=== PATIENT | female | born 1940 | race Caucasian/White ===

== ENCOUNTER → 2020-04-20 13:28 | Outpatient (BNVA) | payer MEDICARE, SELFPAY | PROVIDERS: PCP Internal Medicine; Referring Provider Internal Medicine; Visit Provider Internal Medicine Medical Oncology | DX: I26.99 Other pulmonary embolism without acute cor pulmonale (principal); Z51.81 Encounter for therapeutic drug level monitoring; Z79.01 Long term (current) use of anticoagulants | CPT/HCPCS: 85610; 99211 ==

== ENCOUNTER → 2020-05-12 08:59 | Outpatient (BNVA) | payer MEDICARE, SELFPAY | PROVIDERS: PCP Internal Medicine; Visit Provider Internal Medicine | DX: I26.99 Other pulmonary embolism without acute cor pulmonale (principal); Z51.81 Encounter for therapeutic drug level monitoring; Z79.01 Long term (current) use of anticoagulants | CPT/HCPCS: 85610; 99211 ==

== ENCOUNTER → 2020-05-18 09:26 | Outpatient (BNVA) | payer MEDICARE, SELFPAY | PROVIDERS: PCP Internal Medicine; Visit Provider Internal Medicine | DX: I26.99 Other pulmonary embolism without acute cor pulmonale (principal); Z51.81 Encounter for therapeutic drug level monitoring; Z79.01 Long term (current) use of anticoagulants | CPT/HCPCS: 85610; 99211 ==

== ENCOUNTER → 2020-05-25 09:32 | Outpatient (BNVA) | payer MEDICARE, SELFPAY | PROVIDERS: PCP Internal Medicine; Visit Provider Internal Medicine | DX: I26.99 Other pulmonary embolism without acute cor pulmonale (principal); Z51.81 Encounter for therapeutic drug level monitoring; Z79.01 Long term (current) use of anticoagulants | CPT/HCPCS: 85610; 99211 ==

== ENCOUNTER → 2020-06-04 10:45 | Outpatient (BNVA) | payer MEDICARE, SELFPAY | PROVIDERS: PCP Internal Medicine; Referring Provider Internal Medicine; Visit Provider Internal Medicine | DX: I26.99 Other pulmonary embolism without acute cor pulmonale (principal); Z51.81 Encounter for therapeutic drug level monitoring; Z79.01 Long term (current) use of anticoagulants | CPT/HCPCS: 85610; 99211 ==

== ENCOUNTER → 2020-06-17 09:15 | Outpatient (BNVA) | payer MEDICARE, SELFPAY | PROVIDERS: PCP Internal Medicine; Visit Provider Internal Medicine | DX: I26.99 Other pulmonary embolism without acute cor pulmonale (principal); Z51.81 Encounter for therapeutic drug level monitoring; Z79.01 Long term (current) use of anticoagulants | CPT/HCPCS: 85610; 99211 ==

== ENCOUNTER 2020-06-19 10:03 | Outpatient (REF) | payer MEDICARE, SELFPAY ==
[2020-06-19 12:13] LABS: Glucose Urine UA NEG (NEG); Leukocyte Esterase Urine 1+ (NEG); Nitrite Urine NEG (NEG); Specific Gravity - Urine 1.015 (1.005-1.025); Urine Blood TRACE (NEG); Urine Ketones NEG (NEG); Urine Protein NEG (NEG-TRACE)
[2020-06-19 12:15] LABS: Appearance Urine HAZY; Color Urine YELLOW
[2020-06-19 13:14] LABS: Bacteria Urine 3+ /LPF; RBC Urine 0-2 /HPF (0)
== END 2020-06-19 10:04 | disposition home or self-care (01) ==
LOC: HO.LNP 10:03
PROVIDERS: Absent Provider Internal Medicine; PCP Internal Medicine; Visit Provider Internal Medicine
DX: R35.0 Frequency of micturition (principal)
CPT/HCPCS: 81001; 81003; 85610; 87086; 87088; 87186; 99211

== ENCOUNTER → 2020-06-26 09:13 | Outpatient (BNVA) | payer MEDICARE, SELFPAY | PROVIDERS: PCP Internal Medicine; Visit Provider Internal Medicine | DX: I26.99 Other pulmonary embolism without acute cor pulmonale (principal); Z51.81 Encounter for therapeutic drug level monitoring; Z79.01 Long term (current) use of anticoagulants | CPT/HCPCS: 85610; 99211 ==

== ENCOUNTER → 2020-07-06 13:53 | Outpatient (BNVA) | payer MEDICARE, SELFPAY | PROVIDERS: PCP Internal Medicine; Visit Provider Internal Medicine | DX: I26.99 Other pulmonary embolism without acute cor pulmonale (principal); Z51.81 Encounter for therapeutic drug level monitoring; Z79.01 Long term (current) use of anticoagulants | CPT/HCPCS: 85610; 99211 ==

== ENCOUNTER → 2020-07-13 10:14 | Outpatient (BNVA) | payer MEDICARE, SELFPAY | PROVIDERS: PCP Internal Medicine; Visit Provider Internal Medicine | DX: I26.99 Other pulmonary embolism without acute cor pulmonale (principal); Z51.81 Encounter for therapeutic drug level monitoring; Z79.01 Long term (current) use of anticoagulants | CPT/HCPCS: 85610; 99211 ==

== ENCOUNTER → 2020-07-16 09:35 | Outpatient (BNVA) | payer MEDICARE, SELFPAY | PROVIDERS: PCP Internal Medicine; Referring Provider Internal Medicine; Visit Provider Surgery | DX: C50.912 Malignant neoplasm of unspecified site of left female breast (principal); Z79.811 Long term (current) use of aromatase inhibitors; R07.89 Other chest pain; Z92.21 Personal history of antineoplastic chemotherapy; Z92.3 Personal history of irradiation; Z90.12 Acquired absence of left breast and nipple | CPT/HCPCS: 99212 ==

== ENCOUNTER 2020-07-20 06:00 | Emergency (ER) | payer MEDICARE, SELFPAY ==
[2020-07-20 06:14] VITALS: BP 140/83; BP 160/100; PULSE 86; PULSE 90; RESP 18; TEMP 36.9; O2SAT 96; O2SAT 98; BMI 27.9
--- NOTE | 2020-07-20 06:31 | PC.NURSE ---
THIS RN SPOKE WITH PATIENT'S NEPHEW/HEALTHCARE PROXY (SHAYAN JOSE). REPORTS THAT HE LIVES WITH THE PATIENT, AND DID NOT WITNESS FALL. SHAYAN STATES THAT THE PATIENT IS STUBBORN WHEN IT COMES TO USING A WHEELCHAIR, AND STATES THAT THEY ARE IN THE PROCESS OF TRANSITIONING HER TO WHEELCHAIR USE. SHAYAN STATES THAT IF SHE NEEDS TO BE ADMITTED/TRANSFERRED TO A [facility]AC[facility], THAT SHE DID WELL AT [facility] IN THE PAST. SHAYAN ALSO STATES THAT THE PATIENT BECOMES ANXIOUS IF YOU TELL HER THAT SHE IS BEING PUT INTO A RESIDENTIAL HOME VS. USING THE PHRASING GOING TO REHAB . PATIENT IS SCHEDULED FOR AN ANTICOAGULANT CHECK AT 8:45AM TODAY PRIOR TO TOOTH EXTRACTION (x3) AT 10:45AM SCHEDULED LATER TODAY. SHAYAN UNSURE IF HE SHOULD CANCEL DENTAL APPOINTMENT, AND WONDERING IF ANTICOAGULANT LABS CAN BE DONE WHILE HERE IN THE ED. THIS RN STATED THAT SHE WOULD NOTIFY THE MD REGARDING QUESTIONS. SHAYAN LIVES 10-15 MINUTES AWAY FROM [facility] AND LEFT HIS CONTACT INFORMATION (MATCHES INFORMATION ON FILE), REQUESTING UPDATES WHEN POSSIBLE. AWAITING ED MD EVALUATION.
--- NOTE | 2020-07-20 06:57 | ECG_ITS ---
Test Reason : WEAKNESS,FALL Blood Pressure : / mmHG Vent. Rate : 093 BPM Atrial Rate : 093 BPM P-R Int : 162 ms QRS Dur : 074 ms QT Int : 390 ms P-R-T Axes : 043 039 051 degrees QTc Int : 484 ms Sinus rhythm with Premature supraventricular complexes Otherwise normal ECG When compared with ECG of 16-DEC-2019 17:53, Premature supraventricular complexes are now Present Referred By: Del Knutson Electronically Signed By:Taras Oden
--- NOTE | 2020-07-20 06:58 | CT_ITS ---
EXAMINATION: CT BRAIN, CT CERVICAL SPINE AND CT LUMBAR SPINE WITHOUT CONTRAST. CLINICAL INFORMATION: Trauma. COMPARISON: CT brain and CT cervical spine 12/16/2019 TECHNIQUE: 5 mm thin axial and reformatted 2 mm thin sagittal and coronal images of brain were obtained. Subsequently 3 mm thin axial and reformatted 2 mm thin sagittal and coronal images of cervical spine were obtained. Lastly axial 2 mm thin and reformatted 2 minutes in sagittal coronal images of lumbar spine were obtained without contrast. DLP [id number] FINDINGS: Brain: There is no acute intra-axial, extra-axial bleed, masses, collection or midline shift. There is no acute infarction in evolution. There is punctate bibasilar calcification seen. The lateral ventricles are symmetrical but enlarged with mild prominence of cortical sulci. There is mild periventricular hypodensity in both cerebral hemispheres without mass effect. Bone windows reveal no calvarial abnormality. There is no scalp soft tissue abnormality. Bilateral paranasal sinuses and mastoid air cells are well-aerated. There is normal symmetry of optic globes and bilateral bony orbits. Cervical spine: Is mild straightening of cervical lordosis. The vertebral heights, alignment are normal. There is loss of C3-C4, C4-C5, C5-C6 and C6-C7 disc heights with mild ventral and posterior spondylosis. No lytic or sclerotic process seen. No visible acute fracture, dislocation or subluxation seen. Craniovertebral junction is normal. There is mild rotatory subluxation to left at C1-C2 disc level.. The prevertebral and paravertebral. The airway is widely patent there is bilateral bilateral apical parenchymal scarring and apical pleural thickening. The thyroid, submandibular and parotid lobes are symmetrical and normal. Lumbar spine: There is normal lumbar lordosis with mild levoscoliosis. There is loss of L3-L4, L4-L5 disc heights with vacuum disc phenomena and spondylosis. Rest the disc levels are unremarkable. Mild spur endplate deformity with Schmorl's nodes seen at T12 vertebra. There is bilateral L5-S1 and L4-L5 facet joint arthropathy. The prevertebral, paravertebral and presacral soft tissues are normal. CT/CT cervical spine wo con IMPRESSION: No acute intracranial process seen. Age-related cerebral atrophy with chronic small vessel ischemic changes. Rotatory subluxation C1-C2 disc level. No visible acute fracture or dislocation seen. Degenerative disc changes as described above. Mild levoscoliosis with degenerative L4-L5 and L5-S1 facet joint arthropathy lumbar spine. No visible acute fracture, dislocation or lytic process seen. There is spondylosis throughout lumbar spine.
--- NOTE | 2020-07-20 07:04 | ED.FALL ---
HPI - Fall General Chief Complaint: Fall Stated Complaint: FALL, LEFT SIDE PAIN Time Seen by Provider: 07/20/20 06:56 Source: patient History of Present Illness HPI Narrative: Disease 79 years old female who states that he was getting ready to go to [facility] she turned around and fell. He there is no LOC, she is complaining of lower back pain. complaint: fall Onset (ago): hour(s) (2) Fall from: standing Fall witnessed: no Place fall occurred: home Loss of consciousness: none Prolonged down time: no Symptoms prior to fall: none Context: other (Loss of balance) Location of injury: back (Lower back) Severity: moderate Quality: burning and sharp Related Data Home Medications Medication Instructions Recorded Confirmed atorvastatin 20 mg tablet 20 mg PO DAILY 07/16/20 07/16/20 ferrous sulfate 325 mg (65 mg 325 mg PO DAILY 07/16/20 07/16/20 iron) tablet letrozole 2.5 mg tablet 2.5 mg PO DAILY 07/16/20 07/16/20 Previous Rx's Medication Instructions Recorded warfarin 5 mg tablet 5 mg PO DAILY #90 tab 04/20/20 Allergies Allergy/AdvReac Type Severity Reaction Status Date / Time N.K.D.A. Allergy Unknown N/A Uncoded 05/12/20 09:07 Review of Systems Review of Systems: Yes all other systems are reviewed and are negative Cardiovascular: Cardiovascular: Reports no additional cardiovascular complaints Respiratory: Respiratory: Reports no additional respiratory complaints Gastrointestinal: Gastrointestinal: Denies abdominal pain, Denies melena and Denies hematochezia Genitourinary: Genitourinary: Denies difficulty voiding and Denies nocturia [facility] Past Medical History 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 Surgical History History of left total mastectomy Family History Family History Brother History of stomach cancer History of liver cancer Social History Social History Smoked in Last 30 Days: No Use of substances other than those prescribed or required for medical reasons: No Advance Directives: No Advance Directives Information Provided: No Physical Exam Vital Signs: Vital Signs: Last Vital Signs Temp 98.5 F 07/20/20 06:14 Pulse 92 07/20/20 09:15 Resp 16 07/20/20 09:15 BP 149/90 H 07/20/20 09:15 Pulse Ox 98 07/20/20 09:15 Body Mass Index 27.9 Const: Other: She appear well in not acute distress Orientation/consciousness: oriented to person and oriented to place HENMT: Head: Yes normal to inspection Eyes: General: appearance normal, both eyes and all related structures Neck: Neck: Yes normal visual inspection and Yes no lymphadenopathy Chest: Chest palpation & inspection: normal inspection of the chest Resp: Effort & Inspection: normal respiratory effort Cardio: Jugular venous distension: no JVD Rate: regular rate GI: Inspection: Yes normal to inspection Palpation (GI): Soft to palpation, nontender and no guarding Back/Spine/Pelvis: Other: She has a lower back tenderness Skin: General skin exam: no rashes or lesions noted Neuro: General: oriented to person and oriented to place Extrem: General: Yes normal to inspection and Yes full ROM Course Reevaluation(s) Reevaluation #1: Patient was re-examined she is feeling better, she was able to ambulate with a walker well without assistance. I spoke with the nephew week, to pickle processor the patient we will discharge her home a realizing and that she is fall risk. Time: 09:52 MDM - Fall Lab Data Result diagrams: 07/20/20 09:02 07/20/20 09:02 Labs: Lab Results 07/20/20 07/20/20 07/20/20 Range/Units 09:02 09:02 09:02 WBC 9.9 (4.8-10.8) X10*3/uL RBC 4.55 (4.20-5.50) X10*6/uL Hgb 14.6 (12.0-16.0) g/dl Hct 45.7 (37-47) % MCV 100.4 H (80-98) fL MCH 32.1 (27.0-33.0) pg MCHC 31.9 (31.0-35.0) g/dl RDW 12.7 (11.0-16.0) % Plt Count TNP MPV TNP Immature Gran % (Auto) 0.4 (0.0-0.4) % Neut % (Auto) 70.8 (45-73) % Lymph % (Auto) 21.4 (20-40) % [place] % (Auto) 6.5 (2-11) % Eos % (Auto) 0.6 (0-4) % Baso % (Auto) 0.3 (0-2) % Lymph # (Auto) 2.1 (1.2-4.9) X10*3/uL [place] # (Auto) 0.6 (0.1-1.2) X10*3/uL Eos # (Auto) 0.1 (0.0-0.4) X10*3/uL Baso # (Auto) 0.0 (0.0-0.2) X10*3/uL Abs Immat Gran (auto) 0.04 H (0.00-0.03) X10*3/uL Absolute Neuts (auto) 7.0 (2.0-8.3) X10*3/uL Absolute Nucleated RBC 0.000 (0.0-0.012) X10*3/uL Nucleated RBC % (auto) 0.0 (0.0-0.2) /100WBC Smear Tech's Comments VERIFIED PT 20.2 H (10.8-13.0) SEC INR 1.7 H (0.9-1.1) Sodium 141 (135-145) mmol/L Potassium 4.2 (3.3-5.1) mmol/l Chloride 105 (96-108) mmol/L Carbon Dioxide 27 (22-29) mmol/L Anion Gap 13 (12-20) BUN 12 (9-16) mg/dL Creatinine 0.75 (0.5-1.4) mg/dL Estim Creat Clear Calc 75.8 Estimated GFR > 60 Random Glucose 89 (60-115) mg/dL Calcium 8.9 (8.4-10.2) mg/dL Total Bilirubin 0.7 (0.0-1.0) mg/dL AST 21 (5-31) U/L ALT 22 (0-31) U/L Alkaline Phosphatase 93 (39-117) U/L Total Protein 7.0 (6.5-8.0) g/dL Albumin 4.2 (3.5-5.0) g/dL Imaging Data CT scan - head: Radiologist's impression: Ct head and c spine negative ECG Data Attestation: I personally reviewed and interpreted this ECG as follows: ECG interpretation date: 07/20/20 ECG interpretation time: 08:14 Pacemaker model: NORMAL SINUS RHYTHM A RATE 93 ST-T SEGMENT ISOELECTRIC Discharge Plan Discharge Clinical Impression: Fall, Contusion, Back contusion Patient Disposition: Home, Self-Care Instructions: Fall Prevention for Older Adults (ED) Prescriptions: No Action atorvastatin 20 mg tablet 20 mg PO DAILY RF: 0 ferrous sulfate 325 mg (65 mg iron) tablet 325 mg PO DAILY RF: 0 letrozole 2.5 mg tablet 2.5 mg PO DAILY RF: 0 warfarin 5 mg tablet 5 mg PO DAILY Qty: 90 RF: 0 Referrals: Woody Joseph MD [Primary Care Provider] - 2 days (Please follow-up with primary care physician return if you worse) Interventions: ED Discharge Assessment Last Done: 07/20/20 10:20 Discharge Date/Time: 07/20/20 10:21
[2020-07-20 09:13] LABS: INTERNATIONAL NORM RATIO 1.7 (0.9-1.1); Prothrombin Time 20.2 SEC (10.8-13.0)
[2020-07-20 09:15] VITALS: BP 149/90; PULSE 92; RESP 16; O2SAT 98
[2020-07-20 09:17] LABS: Basophils Percent Auto 0.3 % (0-2); Eosinophils Absolute Auto 0.1 X10*3/uL (0.0-0.4); Eosinophils Percent Auto 0.6 % (0-4); Hematocrit 45.7 % (37-47); Hemoglobin 14.6 g/dl (12.0-16.0); Imm Gran Abs Auto 0.04 X10*3/uL (0.00-0.03); Imm Gran Pct Auto 0.4 % (0.0-0.4); Lymphocytes Absolute Auto 2.1 X10*3/uL (1.2-4.9); Lymphocytes Percent Auto 21.4 % (20-40); MANUAL DIFF FLAG SCAN; Mean Corpuscular HGB Conc 31.9 g/dl (31.0-35.0); Mean Corpuscular Hemoglobin 32.1 pg (27.0-33.0); Mean Corpuscular Volume 100.4 fL (80-98); Monocytes Absolute Auto 0.6 X10*3/uL (0.1-1.2); Monocytes Percent Auto 6.5 % (2-11); Neutrophils Percent Auto 70.8 % (45-73); PLT CLUMP 1; Red Blood Count 4.55 X10*6/uL (4.20-5.50); Red Cell Distribution Width 12.7 % (11.0-16.0); SCAN SMEAR FLAG 1
[2020-07-20 09:39] LABS: Alanine Aminotransferase 22 U/L (0-31); Albumin Level 4.2 g/dL (3.5-5.0); Alkaline Phosphatase 93 U/L (39-117); Anion Gap 13 (12-20); Aspartate Amino Transferase 21 U/L (5-31); Bilirubin Total 0.7 mg/dL (0.0-1.0); Blood Urea Nitrogen 12 mg/dL (9-16); Calcium 8.9 mg/dL (8.4-10.2); Carbon Dioxide 27 mmol/L (22-29); Chloride 105 mmol/L (96-108); Creatinine Clr Calc Pharmacy 75.8; Estimated Glomerular Filt Rate > 60; Glucose Random 89 mg/dL (60-115); Potassium 4.2 mmol/l (3.3-5.1); Sodium 141 mmol/L (135-145)
[2020-07-20 09:44] LABS: White Blood Count 9.9 X10*3/uL (4.8-10.8)
[2020-07-20 09:45] LABS: SLIDE REVIEW VERIFIED
[2020-07-20] MEDS: Acetaminophen 325 MG TABLET 650 MG PO (10:04)
--- NOTE | 2020-07-20 10:20 | PC.NURSE ---
Pt ambulated with walker. Plan is to dc home. Son will pick pt up.
== END 2020-07-20 10:21 | disposition home or self-care (01) ==
PROVIDERS: Emergency Provider Emergency Medicine; PCP Internal Medicine
DX: S30.0XXA Contusion of lower back and pelvis, initial encounter (principal); W01.0XXA Fall on same level from slipping, tripping and stumbling without subsequent striking against object, initial encounter; I10 Essential (primary) hypertension; Y93.89 Activity, other specified; Y92.019 Unspecified place in single-family (private) house as the place of occurrence of the external cause; Y99.9 Unspecified external cause status; Z86.711 Personal history of pulmonary embolism; Z79.01 Long term (current) use of anticoagulants
CPT/HCPCS: 36415; 70450; 72125; 72131; 80053; 85025; 85610; 93005; 99284; Q3014

== ENCOUNTER 2020-07-24 08:27 | Outpatient (REF) | payer MEDICARE, SELFPAY ==
--- NOTE | 2020-07-24 08:31 | MM_ITS ---
EXAMINATION: BONE DENSITOMETRY CLINICAL INDICATION: Age-related osteoporosis without current pathological fracture. COMPARISON: Previous BD dated 11/22/2018 and baseline BD dated 08/02/2016. TECHNIQUE: Using a [employer] DXA System (software version: 13.1) manufactured by [employer], dual-energy x-ray absorptiometry was performed of the lumbar spine and left hip. The images are of good technical quality. Summary results are attached. FINDINGS: AP SPINE L1-L2 (excluding L3 and L4): The data of L1-L4 has been changed to exclude the L3 and L4 vertebral bodies, because degenerative changes at these levels may cause overestimation of lumbar spine density. Current: BMD 0.927 g/cm2, Z-score -0.4, T-score -2.0, osteopenia, 3.5% decrease from previous, 0.9% increase from baseline (<5% change is not significant). Prior: BMD 0.961 g/cm2. Baseline: BMD 0.919 g/cm2. LEFT FEMUR, NECK: Current: BMD 0.822 g/cm2, Z-score 0.3, T-score -1.6, osteopenia. Prior: BMD 0.792 g/cm2. Baseline: BMD 0.842 g/cm2. LEFT FEMUR, TOTAL: Current: BMD 0.931 g/cm2, Z-score 1.1, T-score -0.6, normal, 3.8% increase from previous, 5.1% increase from baseline (<5% change is not significant). Prior: BMD 0.897 g/cm2. Baseline: BMD 0.886 g/cm2. IDENTIFIED RISK FACTORS: Recurrent falls, low calcium intake, history of fracture (adult), menopause. HISTORY OF FRACTURE: Wrist, humerus. Foot. MEDICATIONS: Calcium supplements or multivitamin, vitamin D, ERT/SERMS. MM/XR DEXA axial skeleton IMPRESSION: 1. DIAGNOSIS: Osteopenia based on the lowest T-score value of -2.0 in the lumbar spine applying World Health Organization criteria. 2. 10-YEAR FRACTURE RISK PREDICTION, FRAX: Major osteoporotic fracture (clinical spine, forearm, hip or shoulder) 19.0%. Hip fracture 4.1%. 3. Treatment Recommendations: NOF guidelines recommend consideration for treatment in postmenopausal women and men age 50 and older presenting with the following: -A hip or vertebral (clinical or morphometric) fracture. -T-score less than or equal to -2.5 at the femoral neck or spine after appropriate evaluation to exclude secondary causes. -Low bone mass at the hip or spine and a 10-year fracture probability by FRAX of greater than or equal to 3% for hip fracture or greater than or equal to 20% for major osteoporotic fracture based on the [place] adapted WHO algorithm. 4. Other Recommendations: All treatment decisions require clinical judgment and consideration of individual patient factors, including patient preferences, comorbidities, previous drug use, risk factors not captured in the FRAX model (e.g. frailty, falls, vitamin D deficiency, increased bone turnover, interval significant decline in bone density) and possible under or overestimation of fracture risk by FRAX. Additional medical evaluation for secondary cause of low bone mineral density may be appropriate. FUTURE SCAN RECOMMENDATION: People with diagnosed cases of osteoporosis or at high risk for fracture should have regular bone mineral density tests. For patients eligible for Medicare, routine testing is allowed once every 2 years. The testing frequency can be increased to one year for patients who have rapidly progressing disease, those who are receiving or discontinuing medical therapy to restore bone mass, or have additional risk factors.
--- NOTE | 2020-07-24 08:36 | MM_ITS ---
EXAMINATION: MM DIAGNOSTIC DIGITAL BREAST TOMOSYNTHESIS, RIGHT CLINICAL INFORMATION: Short interval follow-up probable benign right breast calcifications central breast. 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 COMPARISON: Mammography: 02/21/2020, 01/30/2020 (BI-RADS 0), 01/01/2019 TECHNIQUE: Digital breast tomosynthesis is performed in both the craniocaudal and mediolateral oblique views along with computer-aided detection (CAD). Synthesized 2D images are generated from the tomosynthesis. Technically challenging exam requiring 2 process safety engineering technologist to assist with patient positioning. Exam tailored to patient capabilities. Unable to perform magnification views. Difficulty holding breath and standing. FINDINGS: There are scattered areas of fibroglandular density (ACR BI-RADS breast composition Category b). Parenchymal pattern is similar to prior studies. There is no interval mass or architectural abnormality. Again there is a retroareolar biopsy clip marker. Some coarse calcifications again seen posterior upper right breast. The finding calcifications for follow-up appear similar to prior diagnostic exam on today's standard imaging without ability to obtain magnification views. There are no increasing calcifications seen on standard mammography. Right breast will be reassessed again at time of annual exam, due in 6 months. Results are provided to the patient at time of visit by the technologist. MM/MM tomosynthesis diagnostic RT IMPRESSION: 1. Patient study limitations. Unable to obtain magnification views. 2. Right breast calcifications for follow-up are stable on standard imaging. ASSESSMENT: BI-RADS 3: Probably Benign RECOMMENDATION: Diagnostic mammography at time of annual exam, due in 6 months. This patient's information was entered into a reminder system with a target due date for their next mammogram.
== END 2020-07-24 08:28 | disposition home or self-care (01) ==
LOC: HO.MAMMO 08:27
PROVIDERS: PCP Internal Medicine; Visit Provider Internal Medicine
DX: R92.1 Mammographic calcification found on diagnostic imaging of breast (principal); M81.0 Age-related osteoporosis without current pathological fracture; Z78.0 Asymptomatic menopausal state; R29.6 Repeated falls; Z79.899 Other long term (current) drug therapy; Z87.81 Personal history of (healed) traumatic fracture
CPT/HCPCS: 77061; 77065; 77080

== ENCOUNTER → 2020-07-27 07:40 | Outpatient (BNVA) | payer MEDICARE, SELFPAY | PROVIDERS: PCP Internal Medicine; Visit Provider Internal Medicine | DX: I26.99 Other pulmonary embolism without acute cor pulmonale (principal); Z79.01 Long term (current) use of anticoagulants; Z51.81 Encounter for therapeutic drug level monitoring | CPT/HCPCS: 85610; 99211 ==

== ENCOUNTER → 2020-07-31 10:35 | Outpatient (BNVA) | payer MEDICARE, SELFPAY | PROVIDERS: PCP Internal Medicine; Visit Provider Internal Medicine | DX: I26.99 Other pulmonary embolism without acute cor pulmonale (principal); Z51.81 Encounter for therapeutic drug level monitoring; Z79.01 Long term (current) use of anticoagulants | CPT/HCPCS: 85610; 99211 ==

== ENCOUNTER → 2020-08-07 08:59 | Outpatient (BNVA) | payer MEDICARE, SELFPAY | PROVIDERS: PCP Internal Medicine; Visit Provider Internal Medicine | DX: I26.99 Other pulmonary embolism without acute cor pulmonale (principal); Z51.81 Encounter for therapeutic drug level monitoring; Z79.01 Long term (current) use of anticoagulants | CPT/HCPCS: 85610; 99211 ==

== ENCOUNTER → 2020-08-14 09:20 | Outpatient (BNVA) | payer MEDICARE, SELFPAY | PROVIDERS: PCP Internal Medicine; Visit Provider Internal Medicine | DX: I26.99 Other pulmonary embolism without acute cor pulmonale (principal); Z51.81 Encounter for therapeutic drug level monitoring; Z79.01 Long term (current) use of anticoagulants | CPT/HCPCS: 85610; 99211 ==

== ENCOUNTER → 2020-08-28 09:09 | Outpatient (BNVA) | payer MEDICARE, SELFPAY | PROVIDERS: PCP Internal Medicine; Visit Provider Internal Medicine | DX: I26.99 Other pulmonary embolism without acute cor pulmonale (principal); Z51.81 Encounter for therapeutic drug level monitoring; Z79.01 Long term (current) use of anticoagulants | CPT/HCPCS: 85610; 99211 ==

== ENCOUNTER → 2020-09-14 09:07 | Outpatient (BNVA) | payer MEDICARE, SELFPAY | PROVIDERS: PCP Internal Medicine; Visit Provider Internal Medicine | DX: I26.99 Other pulmonary embolism without acute cor pulmonale (principal); Z51.81 Encounter for therapeutic drug level monitoring; Z79.01 Long term (current) use of anticoagulants | CPT/HCPCS: 85610; 99211 ==

== ENCOUNTER → 2020-09-28 08:51 | Outpatient (BNVA) | payer MEDICARE, SELFPAY | PROVIDERS: PCP Internal Medicine; Visit Provider Internal Medicine | DX: I26.99 Other pulmonary embolism without acute cor pulmonale (principal); Z79.01 Long term (current) use of anticoagulants; Z51.81 Encounter for therapeutic drug level monitoring | CPT/HCPCS: 85610 ==

== ENCOUNTER 2020-10-22 14:07 | Emergency (ER) | payer MEDICARE, SELFPAY ==
--- NOTE | ~2020-10-22 | CT_ITS ---
EXAMINATION: CT HEAD WITHOUT CONTRAST CT CERVICAL SPINE WITHOUT CONTRAST CLINICAL INFORMATION: Falls. COMPARISON:0 07/20/2020 CT head and cervical spine. TECHNIQUE: Contiguous axial imaging of the head was performed without the administration of IV contrast. Axial multidetector volumetric images were also performed through the cervical spine without contrast. Multiplanar reconstructed images in coronal and sagittal orientations were submitted. DOSE: 688, 226 mGy-cm FINDINGS: HEAD: There is no evidence of acute intracranial hemorrhage or territorial infarction. No abnormal mass-effect or midline shift. No extra-axial fluid collections. Edward to white matter differentiation is well preserved. Cerebral volume loss with sulcal and ventricular prominence. Bilateral basal ganglia calcification. [id number] deep white matter hypodensities suggesting chronic microangiopathy changes. No acute calvarial fracture. The sinuses and mastoid air cells are clear. CERVICAL SPINE: On the sagittal sequence, there is grade 1 anterolisthesis of C7 on T1. Mild levoconvex curvature of the spine. Vertebral body heights are maintained. No acute fracture is seen. Multilevel cervical spondylosis. This includes severe disc degeneration at C4-C5, C5-C6, C6-C7. Multilevel facet degeneration. Visualized thyroid gland appears unremarkable. Biapical pleural parenchymal scarring. CT/CT head/brain wo con IMPRESSION: CT HEAD: 1. No CT evidence of acute intracranial pathology. 2. Chronic changes in the brain as detailed above. CT CERVICAL SPINE: 1. No visible acute fracture or dislocation. Stable grade 1 anterolisthesis of C7 on T1. 2. Cervical spondylosis as detailed above.
--- NOTE | ~2020-10-22 | CT_ITS ---
EXAMINATION: CT HEAD WITHOUT CONTRAST CT CERVICAL SPINE WITHOUT CONTRAST CLINICAL INFORMATION: Falls. COMPARISON:0 07/20/2020 CT head and cervical spine. TECHNIQUE: Contiguous axial imaging of the head was performed without the administration of IV contrast. Axial multidetector volumetric images were also performed through the cervical spine without contrast. Multiplanar reconstructed images in coronal and sagittal orientations were submitted. DOSE: 688, 226 mGy-cm FINDINGS: HEAD: There is no evidence of acute intracranial hemorrhage or territorial infarction. No abnormal mass-effect or midline shift. No extra-axial fluid collections. Edward to white matter differentiation is well preserved. Cerebral volume loss with sulcal and ventricular prominence. Bilateral basal ganglia calcification. Gsqh-nz-kzpjovlw deep white matter hypodensities suggesting chronic microangiopathy changes. No acute calvarial fracture. The sinuses and mastoid air cells are clear. CERVICAL SPINE: On the sagittal sequence, there is grade 1 anterolisthesis of C7 on T1. Mild levoconvex curvature of the spine. Vertebral body heights are maintained. No acute fracture is seen. Multilevel cervical spondylosis. This includes severe disc degeneration at C4-C5, C5-C6, C6-C7. Multilevel facet degeneration. Visualized thyroid gland appears unremarkable. Biapical pleural parenchymal scarring. CT/CT cervical spine wo con IMPRESSION: CT HEAD: 1. No CT evidence of acute intracranial pathology. 2. Chronic changes in the brain as detailed above. CT CERVICAL SPINE: 1. No visible acute fracture or dislocation. Stable grade 1 anterolisthesis of C7 on T1. 2. Cervical spondylosis as detailed above.
--- NOTE | ~2020-10-22 | XR_ITS ---
EXAMINATION: XR CHEST CLINICAL INFORMATION: Falls COMPARISON: 10/22/2019 TECHNIQUE: Frontal view of the chest was obtained. FINDINGS: The lungs are well expanded. Minimal right midlung atelectasis. Scarring at the apices. Blunting at the left costophrenic angle suggests small pleural effusion. No pneumothorax. The cardiomediastinal silhouette is unchanged, with a calcified aorta. Degenerative changes of the spine. XR/XR chest 1V IMPRESSION: No acute osseous abnormality. Small left pleural effusion. Chronic appearing changes.
--- NOTE | ~2020-10-22 | XR_ITS ---
EXAMINATION: XR HIP, RIGHT CLINICAL INFORMATION: Falls COMPARISON: None TECHNIQUE: Two views of the right hip. Frontal view of the pelvis. FINDINGS: There is no fracture or dislocation. The hips are well aligned. Joint spaces are narrowed with subchondral sclerosis and small osteophytes. The pelvic rim is intact. Mild degenerative changes along the sacroiliac joints. The pubic symphysis is well aligned. Degenerative change of the lower lumbar spine. The bowel gas pattern is unremarkable. XR/XR hip RT min 2V IMPRESSION: No acute osseous abnormality. Mild degenerative changes.
--- NOTE | 2020-10-22 14:22 | ECG_ITS ---
Test Reason : FALL Blood Pressure : / mmHG Vent. Rate : 089 BPM Atrial Rate : 089 BPM P-R Int : 168 ms QRS Dur : 072 ms QT Int : 402 ms P-R-T Axes : 042 018 034 degrees QTc Int : 489 ms Normal sinus rhythm Moderate voltage criteria for LVH, may be normal variant Early repolarization Borderline ECG When compared with ECG of 20-JUL-2020 07:38, Premature supraventricular complexes are no longer Present Referred By: Ana Hayes Electronically Signed By:WILLIE COLEMAN
--- NOTE | 2020-10-22 14:23 | ED.FALL ---
HPI - Fall General Chief Complaint: Fall Stated Complaint: UNWIT FALL W/L LEG&BACK PAIN,FOUND BY NEIGHBOR Time Seen by Provider: 10/22/20 14:20 Source: patient and EMS Mode of arrival: EMS Limitations: other (memory issues per patient) History of Present Illness HPI Narrative: 80 yo female with hx of HPL, DVT on coumadin, PE, HPL, dementia, breast cancer left - here with reported falls at home on and Monday at home states she told a neighbor she was falling so 911 was called today, she did not fall today, she states she think she passed out last week. complaint: fall Onset (ago): day(s) ( and monday last week) Fall from: standing Fall witnessed: no Place fall occurred: home Loss of consciousness: yes Prolonged down time: no Symptoms prior to fall: lightheadedness and dizziness Context: history of frequent falls Location of injury - extremities: right: thigh Quality: dull Associated symptoms (after fall): other (R hip) Related Data Home Medications Medication Instructions Recorded Confirmed atorvastatin 20 mg tablet 20 mg PO DAILY 07/16/20 09/28/20 ferrous sulfate 325 mg (65 mg 325 mg PO DAILY 07/16/20 09/28/20 iron) tablet Previous Rx's Medication Instructions Recorded warfarin 5 mg tablet 5 mg PO DAILY #90 tab 04/20/20 Allergies Allergy/AdvReac Type Severity Reaction Status Date / Time N.K.D.A. Allergy Unknown N/A Uncoded 05/12/20 09:07 Review of Systems Review of Systems: ROS unable to be obtained due to dementia [facility] Past Medical History Attestation statement: The following information was validated with the patient. 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 Oriented X2. No acute distress. Eyes: Pupils equal, round and reactive to light. ENT: Pharynx normal. Neck: Normal inspection. Neck supple. CVS: Normal heart rate and rhythm. Pulses normal. Respiratory: No respiratory distress. Breath sounds normal. Abdomen: Soft and nontender. Skin: Skin warm and dry. Normal skin color. Normal skin turgor. Extremities: No lower extremity edema. No calf ttp Old bruise to R lateral thigh - yellow in appearance Neuro: Oriented X 2. No motor deficit. No sensory deficit. Course Course Course Narrative: Patient placed in physician observation at 431pm. The indication for observation is that the patient needs more time to see if their weakness and falls improves or they will need to be placed by CM and PT for STR At this time the patient is well developed well nourished, lungs clear, CV RRR, abd nontender, neuro is intact. signed out to oncoming provider at 5pm MDM - Fall MDM Narrative Medical decision making narrative: 80 yo female with dementia, HTN, DVT on coumadin recent falls she states last week - has old bruise to R thigh - she is unsure but thinks she might have passed out labs, CT scan of head/neck, R hip, involving CM at this time, dispo per results and findings, no CP/SOB to suggest PE/ACS Lab Data Result diagrams: 10/22/20 14:44 10/22/20 14:44 Labs: Lab Results 10/22/20 10/22/20 10/22/20 Range/Units 14:44 14:44 14:44 WBC 7.3 (4.8-10.8) X10*3/uL RBC 4.20 (4.20-5.50) X10*6/uL Hgb 13.2 (12.0-16.0) g/dl Hct 41.0 (37-47) % MCV 97.6 (80-98) fL MCH 31.4 (27.0-33.0) pg MCHC 32.2 (31.0-35.0) g/dl RDW 13.1 (11.0-16.0) % Plt Count 203 (160-400) X10*3/uL MPV 9.9 (9.4-12.3) fL Immature Gran % (Auto) 0.1 (0.0-0.4) % Neut % (Auto) 54.3 (45-73) % Lymph % (Auto) 35.5 (20-40) % [place] % (Auto) 7.8 (2-11) % Eos % (Auto) 1.8 (0-4) % Baso % (Auto) 0.5 (0-2) % Lymph # (Auto) 2.6 (1.2-4.9) X10*3/uL [place] # (Auto) 0.6 (0.1-1.2) X10*3/uL Eos # (Auto) 0.1 (0.0-0.4) X10*3/uL Baso # (Auto) 0.0 (0.0-0.2) X10*3/uL Abs Immat Gran (auto) 0.01 (0.00-0.03) X10*3/uL Absolute Neuts (auto) 4.0 (2.0-8.3) X10*3/uL Absolute Nucleated RBC 0.000 (0.0-0.012) X10*3/uL Nucleated RBC % (auto) 0.0 (0.0-0.2) /100WBC PT (10.8-13.0) SEC INR (0.9-1.1) APTT (24.1-38.0) SEC Sodium 140 (135-145) mmol/L Potassium 3.6 (3.3-5.1) mmol/L Chloride 106 (96-108) mmol/L Carbon Dioxide 25 (22-29) mmol/L Anion Gap 13 (12-20) BUN 15 (9-16) mg/dL Creatinine 0.83 (0.5-1.4) mg/dL Estim Creat Clear Calc 51.9 Estimated GFR > 60 Random Glucose 81 (60-115) mg/dL Calcium 8.7 (8.4-10.2) mg/dL Magnesium 2.0 (1.6-2.6) mg/dL Total Bilirubin 0.9 (0.0-1.0) mg/dL Direct Bilirubin 0.3 (0.0-0.5) mg/dL AST 17 (5-31) U/L ALT 19 (0-31) U/L Alkaline Phosphatase 97 (39-117) U/L Ammonia 30 (13-55) umol/L Total Creatine Kinase 82 (26-140) U/L Troponin I High Sens (<3.5-17.0) ng/L Total Protein 6.6 (6.5-8.0) g/dL Albumin 4.0 (3.5-5.0) g/dL Lipase (8-78) U/L TSH (0.32-4.0) uIU/mL COVID-19 (NATHALIE) (Negative) COVID-19 Clin Com 10/22/20 10/22/20 10/22/20 Range/Units 14:44 14:44 14:44 WBC (4.8-10.8) X10*3/uL RBC (4.20-5.50) X10*6/uL Hgb (12.0-16.0) g/dl Hct (37-47) % MCV (80-98) fL MCH (27.0-33.0) pg MCHC (31.0-35.0) g/dl RDW (11.0-16.0) % Plt Count (160-400) X10*3/uL MPV (9.4-12.3) fL Immature Gran % (Auto) (0.0-0.4) % Neut % (Auto) (45-73) % Lymph % (Auto) (20-40) % [place] % (Auto) (2-11) % Eos % (Auto) (0-4) % Baso % (Auto) (0-2) % Lymph # (Auto) (1.2-4.9) X10*3/uL [place] # (Auto) (0.1-1.2) X10*3/uL Eos # (Auto) (0.0-0.4) X10*3/uL Baso # (Auto) (0.0-0.2) X10*3/uL Abs Immat Gran (auto) (0.00-0.03) X10*3/uL Absolute Neuts (auto) (2.0-8.3) X10*3/uL Absolute Nucleated RBC (0.0-0.012) X10*3/uL Nucleated RBC % (auto) (0.0-0.2) /100WBC PT 28.2 H D (10.8-13.0) SEC INR 2.4 H (0.9-1.1) APTT 48.6 H (24.1-38.0) SEC Sodium (135-145) mmol/L Potassium (3.3-5.1) mmol/L Chloride (96-108) mmol/L Carbon Dioxide (22-29) mmol/L Anion Gap (12-20) BUN (9-16) mg/dL Creatinine (0.5-1.4) mg/dL Estim Creat Clear Calc Estimated GFR Random Glucose (60-115) mg/dL Calcium (8.4-10.2) mg/dL Magnesium (1.6-2.6) mg/dL Total Bilirubin (0.0-1.0) mg/dL Direct Bilirubin (0.0-0.5) mg/dL AST (5-31) U/L ALT (0-31) U/L Alkaline Phosphatase (39-117) U/L Ammonia (13-55) umol/L Total Creatine Kinase (26-140) U/L Troponin I High Sens (<3.5-17.0) ng/L Total Protein (6.5-8.0) g/dL Albumin (3.5-5.0) g/dL Lipase 71 (8-78) U/L TSH 1.22 (0.32-4.0) uIU/mL COVID-19 (NATHALIE) Negative (Negative) COVID-19 Clin Com See Note 10/22/20 Range/Units 14:44 WBC (4.8-10.8) X10*3/uL RBC (4.20-5.50) X10*6/uL Hgb (12.0-16.0) g/dl Hct (37-47) % MCV (80-98) fL MCH (27.0-33.0) pg MCHC (31.0-35.0) g/dl RDW (11.0-16.0) % Plt Count (160-400) X10*3/uL MPV (9.4-12.3) fL Immature Gran % (Auto) (0.0-0.4) % Neut % (Auto) (45-73) % Lymph % (Auto) (20-40) % [place] % (Auto) (2-11) % Eos % (Auto) (0-4) % Baso % (Auto) (0-2) % Lymph # (Auto) (1.2-4.9) X10*3/uL [place] # (Auto) (0.1-1.2) X10*3/uL Eos # (Auto) (0.0-0.4) X10*3/uL Baso # (Auto) (0.0-0.2) X10*3/uL Abs Immat Gran (auto) (0.00-0.03) X10*3/uL Absolute Neuts (auto) (2.0-8.3) X10*3/uL Absolute Nucleated RBC (0.0-0.012) X10*3/uL Nucleated RBC % (auto) (0.0-0.2) /100WBC PT (10.8-13.0) SEC INR (0.9-1.1) APTT (24.1-38.0) SEC Sodium (135-145) mmol/L Potassium (3.3-5.1) mmol/L Chloride (96-108) mmol/L Carbon Dioxide (22-29) mmol/L Anion Gap (12-20) BUN (9-16) mg/dL Creatinine (0.5-1.4) mg/dL Estim Creat Clear Calc Estimated GFR Random Glucose (60-115) mg/dL Calcium (8.4-10.2) mg/dL Magnesium (1.6-2.6) mg/dL Total Bilirubin (0.0-1.0) mg/dL Direct Bilirubin (0.0-0.5) mg/dL AST (5-31) U/L ALT (0-31) U/L Alkaline Phosphatase (39-117) U/L Ammonia (13-55) umol/L Total Creatine Kinase (26-140) U/L Troponin I High Sens 4.2 (<3.5-17.0) ng/L Total Protein (6.5-8.0) g/dL Albumin (3.5-5.0) g/dL Lipase (8-78) U/L TSH (0.32-4.0) uIU/mL COVID-19 (NATHALIE) (Negative) COVID-19 Clin Com ECG Data Attestation: I personally reviewed and interpreted this ECG as follows: ECG interpretation date: 10/22/20 ECG interpretation time: 15:35 Interpretation: Rate: 89 Rhythm: NSR [place]: normal, LVH Normal P waves. Normal GUME. Normal QRS complex. ST T wave : normal, early repolarization qTC: normal prior studies: no acute ischemia The study has been interpreted contemporaneously by me. . Discharge Plan Discharge Clinical Impression: At high risk for falls, Weakness, Hematoma Prescriptions: No [facility] atorvastatin 20 mg tablet 20 mg PO DAILY RF: 0 ferrous sulfate 325 mg (65 mg iron) tablet 325 mg PO DAILY RF: 0 warfarin 5 mg tablet 5 mg PO DAILY Qty: 90 RF: 0
[2020-10-22 14:34] VITALS: BP 139/79; PULSE 94; RESP 18; TEMP 36.8; O2SAT 96; BMI 18.6
[2020-10-22 14:52] LABS: MANUAL DIFF FLAG NO
[2020-10-22 14:53] LABS: Basophils Percent Auto 0.5 % (0-2); Eosinophils Absolute Auto 0.1 X10*3/uL (0.0-0.4); Eosinophils Percent Auto 1.8 % (0-4); Hemoglobin 13.2 g/dl (12.0-16.0); Imm Gran Abs Auto 0.01 X10*3/uL (0.00-0.03); Imm Gran Pct Auto 0.1 % (0.0-0.4); Lymphocytes Absolute Auto 2.6 X10*3/uL (1.2-4.9); Lymphocytes Percent Auto 35.5 % (20-40); Mean Corpuscular HGB Conc 32.2 g/dl (31.0-35.0); Mean Corpuscular Hemoglobin 31.4 pg (27.0-33.0); Mean Corpuscular Volume 97.6 fL (80-98); Mean Platelet Volume 9.9 fL (9.4-12.3); Monocytes Absolute Auto 0.6 X10*3/uL (0.1-1.2); Monocytes Percent Auto 7.8 % (2-11); Neutrophils Percent Auto 54.3 % (45-73); Platelet Count 203 X10*3/uL (160-400); Red Cell Distribution Width 13.1 % (11.0-16.0); White Blood Count 7.3 X10*3/uL (4.8-10.8)
[2020-10-22 15:09] LABS: INTERNATIONAL NORM RATIO 2.4 (0.9-1.1); Prothrombin Time 28.2 SEC (10.8-13.0)
[2020-10-22 15:11] LABS: COVID-19 Test Negative (Negative); IDNOW Serial# 08D9AD1C
[2020-10-22 15:15] LABS: Ammonia 30 umol/L (13-55)
[2020-10-22 15:26] LABS: Troponin-I High Sensitivity 4.2 ng/L (<3.5-17.0)
[2020-10-22 15:30] LABS: Partial Thromboplastin Time 48.6 SEC (24.1-38.0)
[2020-10-22 15:31] LABS: Alanine Aminotransferase 19 U/L (0-31); Alkaline Phosphatase 97 U/L (39-117); Anion Gap 13 (12-20); Aspartate Amino Transferase 17 U/L (5-31); Bilirubin Direct 0.3 mg/dL (0.0-0.5); Bilirubin Total 0.9 mg/dL (0.0-1.0); Blood Urea Nitrogen 15 mg/dL (9-16); Calcium 8.7 mg/dL (8.4-10.2); Carbon Dioxide 25 mmol/L (22-29); Chloride 106 mmol/L (96-108); Creatinine Clr Calc Pharmacy 51.9; Estimated Glomerular Filt Rate > 60; Glucose Random 81 mg/dL (60-115); Potassium 3.6 mmol/L (3.3-5.1); Sodium 140 mmol/L (135-145); Total Protein 6.6 g/dL (6.5-8.0)
[2020-10-22 15:32] LABS: Lipase 71 U/L (8-78)
[2020-10-22 15:43] LABS: Thyroid Stimulating Hormone 1.22 uIU/mL (0.32-4.0)
[2020-10-22 16:17] VITALS: BP 145/81; PULSE 93; RESP 18
--- NOTE | 2020-10-22 17:36 | MHC.CM.ED ---
CM met with pt. A&Ox3. Admits to being forgetful at times. Pt had 2 falls and cannot tell CM how she fell. Pt lives alone and feels safe. States her Nephew, Dayne Carty ([phone]), takes very good care of her. She does have a life alert. Dayne takes her to doctor appointments, labs and shopping. Pt understands that she will be staying overnight in the ED, pending PT evaluation. Pt states she and her nephew will make decisions based on PT evaluation. Pt has been to [facility] in the past for STR. CM spoke to Dayne at request of pt. Pt. very concerned that he know what's happening with her. Dayne tells CM he is very willing to help her and keep her at home or in his home when necessary. Dayne tells CM that her PCP is Dr. Daniela Joseph. If STR necessary, [facility] would like her to go to [facility]. Referral will be placed in [employer] for [facility] to follow. HCP is on file. #1 is Zafar Machelle ([phone]). #2 is Dayne. Zafar lives in [place]. Pt would like CM to contact Dayne. CM to follow for d/c needs.
[2020-10-22 18:35] LABS: Glucose Urine UA NEG (NEG); Leukocyte Esterase Urine 2+ (NEG); Nitrite Urine POS (NEG); Specific Gravity - Urine 1.025 (1.005-1.025); UACC Culture Trigger YES; Urine Blood 2+ (NEG); Urine Ketones 5 MG/DL (NEG); Urine Protein NEG (NEG-TRACE)
[2020-10-22 18:40] LABS: Appearance Urine HAZY; Color Urine YELLOW
[2020-10-22 18:49] LABS: Bacteria Urine 3+ /LPF; Mucus Urine TRACE /LPF; Renal Epithelial Cells Urine TRACE /LPF; Squamous Epithelial Cell Urine TRACE /LPF; WBC Urine 30-49 /HPF (0-4)
[2020-10-22 20:00] VITALS: BP 134/74; PULSE 90; RESP 16; TEMP 36.6; O2SAT 96
--- NOTE | 2020-10-22 21:02 | PC.NURSE ---
pt denies pain to her right leg with bruising to mid upper leg. pt states she has a headache at this time . pt is alert and oriented.
[2020-10-22 22:09] VITALS: BP 123/68; PULSE 87; RESP 16; TEMP 36.1; O2SAT 96
[2020-10-23] VITALS (8 sets, daily range): BP systolic 119–157; BP diastolic 69–92; PULSE 88–107; RESP 16–18; TEMP 36.3–37.1; O2SAT 95–98
--- NOTE | 2020-10-23 00:27 | PC.NURSE ---
PATIENT WAS UNDRESSED AND REPOSITION BY THIS PCT
--- NOTE | 2020-10-23 05:21 | PC.NURSE ---
Throughout shift, patient has been pleasant/cooperative, however is intermittently confused. 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 Pt pleasant and asking if any of the nurses need assistance with their tasks. Pt redirectable with staff, has not slept. Requested and given amanda chelle, ambulates steadily with walker use. Will continue to monitor.
--- NOTE | 2020-10-23 09:31 | MHC.CM.ED ---
Patient remains in ER. Physical therapy eval completed. Short term rehab is recommended. Clinical updates sent to [facility]. Continue to monitor for d/c needs.
--- NOTE | 2020-10-23 11:16 | PC.NURSE ---
patient very calm and pleasant, has bouts of confusion. starting to wonder into other patients rooms. patient is redirectable.
--- NOTE | 2020-10-23 13:41 | MHC.CM.ED ---
[facility] is able to offer a bed. Patient can leave at 330pm. [facility] booked. Med nec with chart. Patient, nephew/HCP DR Freddy Oscar and Nessa BARNES aware. Continue to monitor for d/c needs.
== END 2020-10-23 15:30 | disposition skilled nursing facility (03) ==
PROVIDERS: Emergency Provider Emergency Medicine; PCP Internal Medicine
DX: R53.1 Weakness (principal); R42 Dizziness and giddiness; Z20.822 Contact with and (suspected) exposure to COVID-19; I10 Essential (primary) hypertension; F03.90 Unspecified dementia, unspecified severity, without behavioral disturbance, psychotic disturbance, mood disturbance, and anxiety; E78.00 Pure hypercholesterolemia, unspecified; Z91.81 History of falling; Z85.3 Personal history of malignant neoplasm of breast; Z86.718 Personal history of other venous thrombosis and embolism; Z86.711 Personal history of pulmonary embolism; Z79.01 Long term (current) use of anticoagulants; Z79.02 Long term (current) use of antithrombotics/antiplatelets
CPT/HCPCS: 36415; 70450; 71045; 72125; 73502; 80048; 80076; 81001; 81003; 82140; 82550; 83690; 83735; 84443; 84484; 85025; 85610; 85730; 87086; 87088; 87186; 87635; 93005; 97162; 99284; 99285

== ENCOUNTER → 2020-11-03 14:55 | Outpatient (BNVA) | payer MEDICARE, SELFPAY | PROVIDERS: PCP Internal Medicine; Visit Provider Internal Medicine | DX: I26.99 Other pulmonary embolism without acute cor pulmonale (principal); Z79.01 Long term (current) use of anticoagulants; Z51.81 Encounter for therapeutic drug level monitoring | CPT/HCPCS: Q3014 ==

== ENCOUNTER → 2020-11-05 14:31 | Outpatient (BNVA) | payer MEDICARE, SELFPAY | PROVIDERS: PCP Internal Medicine; Visit Provider Internal Medicine | DX: I26.99 Other pulmonary embolism without acute cor pulmonale (principal); Z79.01 Long term (current) use of anticoagulants; Z51.81 Encounter for therapeutic drug level monitoring | CPT/HCPCS: Q3014 ==

== ENCOUNTER → 2020-11-13 14:59 | Outpatient (BNVA) | payer MEDICARE, SELFPAY | PROVIDERS: PCP Internal Medicine; Visit Provider Internal Medicine | DX: Z51.81 Encounter for therapeutic drug level monitoring (principal) | CPT/HCPCS: Q3014 ==

== ENCOUNTER → 2020-11-20 15:08 | Outpatient (BNVA) | payer MEDICARE, SELFPAY | PROVIDERS: PCP Internal Medicine; Visit Provider Internal Medicine ==

== ENCOUNTER → 2020-11-23 08:34 | Outpatient (BNVA) | payer MEDICARE, SELFPAY | PROVIDERS: PCP Internal Medicine; Visit Provider Internal Medicine | DX: I26.99 Other pulmonary embolism without acute cor pulmonale (principal); Z51.81 Encounter for therapeutic drug level monitoring; Z79.01 Long term (current) use of anticoagulants | CPT/HCPCS: 85610; 99211 ==

== ENCOUNTER → 2020-12-01 09:50 | Outpatient (BNVA) | payer MEDICARE, SELFPAY | PROVIDERS: PCP Internal Medicine; Visit Provider Internal Medicine | DX: I26.99 Other pulmonary embolism without acute cor pulmonale (principal); Z51.81 Encounter for therapeutic drug level monitoring; Z79.01 Long term (current) use of anticoagulants | CPT/HCPCS: 85610; 99211 ==

== ENCOUNTER → 2020-12-07 09:36 | Outpatient (BNVA) | payer MEDICARE, SELFPAY | PROVIDERS: PCP Internal Medicine; Visit Provider Internal Medicine | DX: I26.99 Other pulmonary embolism without acute cor pulmonale (principal); Z51.81 Encounter for therapeutic drug level monitoring; Z79.01 Long term (current) use of anticoagulants | CPT/HCPCS: 85610; 99211 ==

== ENCOUNTER → 2020-12-25 09:36 | Outpatient (BNVA) | payer MEDICARE, SELFPAY | PROVIDERS: PCP Internal Medicine; Visit Provider Internal Medicine | DX: I26.99 Other pulmonary embolism without acute cor pulmonale (principal); Z51.81 Encounter for therapeutic drug level monitoring; Z79.01 Long term (current) use of anticoagulants | CPT/HCPCS: 85610; 99211 ==

== ENCOUNTER → 2021-01-12 09:26 | Outpatient (BNVA) | payer MEDICARE, SELFPAY | PROVIDERS: PCP Internal Medicine; Visit Provider Internal Medicine | DX: I26.99 Other pulmonary embolism without acute cor pulmonale (principal); Z51.81 Encounter for therapeutic drug level monitoring; Z79.01 Long term (current) use of anticoagulants | CPT/HCPCS: 85610; 99211 ==

== ENCOUNTER → 2021-01-15 09:25 | Outpatient (BNVA) | payer MEDICARE, SELFPAY | PROVIDERS: PCP Internal Medicine; Visit Provider Internal Medicine | DX: I26.99 Other pulmonary embolism without acute cor pulmonale (principal); Z51.81 Encounter for therapeutic drug level monitoring; Z79.01 Long term (current) use of anticoagulants | CPT/HCPCS: 85610; 99211 ==

== ENCOUNTER → 2021-01-22 08:58 | Outpatient (BNVA) | payer MEDICARE, SELFPAY | PROVIDERS: PCP Internal Medicine; Visit Provider Internal Medicine | DX: I26.99 Other pulmonary embolism without acute cor pulmonale (principal); Z51.81 Encounter for therapeutic drug level monitoring; Z79.01 Long term (current) use of anticoagulants | CPT/HCPCS: 85610; 99211 ==

== ENCOUNTER 2021-01-25 09:14 | Outpatient (REF) | payer MEDICARE, SELFPAY ==
--- NOTE | ~2021-01-25 | MM_ITS ---
EXAMINATION: MM DIAGNOSTIC DIGITAL BREAST TOMOSYNTHESIS, RIGHT CLINICAL INFORMATION: Prior left mastectomy for invasive ductal cancer 2017. Due for yearly and follow-up probable benign calcifications central breast on CC view. COMPARISON: Mammography: 07/24/2020, 02/21/2020, 01/30/2020 (BI-RADS 0), 01/01/2019, 01/05/2018, 01/04/2017 TECHNIQUE: Digital breast tomosynthesis is performed in both the craniocaudal and mediolateral oblique views along with computer-aided detection (CAD). Synthesized 2D images are generated from the tomosynthesis. As experienced in the past, the exam is technically challenging with patient study limitations. Exam tailored to patient capabilities. Additional views are obtained: Exaggerated right CC, magnification right CC x3, magnification right ML FINDINGS: There are scattered areas of fibroglandular density (ACR BI-RADS breast composition Category b). Parenchymal pattern is similar to prior exam. There is biopsy clip marker mid 9:00 position. There are scattered coarse calcifications upper outer quadrant and anterior 1:00 position. A few fine calcifications central breast on standard CC view and exaggerated CC views are stable from prior diagnostic exam. There is motion artifact on the CC magnification views. There is no clearly defined correlate on ML or MLO views. Results are provided to the patient at time of visit by the technologist. MM/MM tomosynthesis diagnostic RT IMPRESSION: No significant changes from prior diagnostic exam. Patient study limitations. ASSESSMENT: BI-RADS 3: Probably Benign RECOMMENDATION: Diagnostic mammography in 6 months. This patient's information was entered into a reminder system with a target due date for their next mammogram.
== END 2021-01-25 09:15 | disposition home or self-care (01) ==
LOC: HO.MAMMO 09:14
PROVIDERS: PCP Internal Medicine; Visit Provider Internal Medicine
DX: R92.1 Mammographic calcification found on diagnostic imaging of breast (principal)
CPT/HCPCS: 77061; 77065

== ENCOUNTER → 2021-02-04 09:19 | Outpatient (BNVA) | payer MEDICARE, SELFPAY | PROVIDERS: PCP Internal Medicine; Visit Provider Internal Medicine | DX: I26.99 Other pulmonary embolism without acute cor pulmonale (principal); Z51.81 Encounter for therapeutic drug level monitoring; Z79.01 Long term (current) use of anticoagulants | CPT/HCPCS: 85610; 99211 ==

== ENCOUNTER → 2021-02-16 09:16 | Outpatient (BNVA) | payer MEDICARE, SELFPAY | PROVIDERS: PCP Internal Medicine; Visit Provider Internal Medicine | DX: I26.99 Other pulmonary embolism without acute cor pulmonale (principal); Z51.81 Encounter for therapeutic drug level monitoring; Z79.01 Long term (current) use of anticoagulants | CPT/HCPCS: 85610; 99211 ==

== ENCOUNTER → 2021-02-19 13:06 | Outpatient (BNVA) | payer MEDICARE, SELFPAY | PROVIDERS: PCP Internal Medicine; Visit Provider Internal Medicine | DX: I26.99 Other pulmonary embolism without acute cor pulmonale (principal); Z51.81 Encounter for therapeutic drug level monitoring; Z79.01 Long term (current) use of anticoagulants | CPT/HCPCS: 85610; 99211 ==

== ENCOUNTER 2021-08-10 14:42 | Outpatient (REF) | payer MEDICARE, SELFPAY ==
--- NOTE | ~2021-08-10 | MM_ITS ---
EXAMINATION: MM DIAGNOSTIC DIGITAL BREAST TOMOSYNTHESIS, RIGHT CLINICAL INFORMATION: Follow-up probable benign calcifications central right breast. Prior left mastectomy for invasive ductal cancer 2017. COMPARISON: Mammography: 01/25/2021, 07/24/2020, 02/21/2020, 01/30/2020 (BI-RADS 0), 01/01/2019 TECHNIQUE: Digital breast tomosynthesis is performed in both the craniocaudal and mediolateral oblique views along with computer-aided detection (CAD). Synthesized 2D images are generated from the tomosynthesis. Additional views are obtained: Exaggerated CC, magnification CC, magnification ML. As experienced in the past, the exam is technically challenging with patient study limitations. Exam tailored to patient capabilities. FINDINGS: There are scattered areas of fibroglandular density (ACR BI-RADS breast composition Category b). The parenchymal pattern is similar to prior studies. Biopsy clip marker again noted retroareolar 9:00 position. Scattered coarse calcifications are again present anterior breast and upper outer quadrant. A few fine calcifications central breast on CC view appears stable from prior diagnostic studies. These will be reassessed again at time of annual mammography, due in 6 months, to complete long-term surveillance. Preliminary results are provided to the patient at time of visit by the technologist. MM/MM tomosynthesis diagnostic BI IMPRESSION: No significant changes from prior diagnostic exams. ASSESSMENT: BI-RADS 3: Probably Benign RECOMMENDATION: Diagnostic mammography at time of annual mammography, due in 6 months. This patient's information was entered into a reminder system with a target due date for their next mammogram.
== END 2021-08-10 14:43 | disposition home or self-care (01) ==
LOC: HO.MAMMO 14:42
PROVIDERS: PCP Internal Medicine; Visit Provider Internal Medicine
DX: R92.1 Mammographic calcification found on diagnostic imaging of breast (principal)
CPT/HCPCS: 77062; 77066

== ENCOUNTER 2022-03-09 14:43 | Outpatient (REF) | payer MEDICARE, SELFPAY ==
--- NOTE | ~2022-03-09 | MM_ITS ---
EXAMINATION: MM DIAGNOSTIC DIGITAL BREAST TOMOSYNTHESIS, RIGHT CLINICAL INFORMATION: Right breast calcifications follow-up. Status post left mastectomy. Status post right breast biopsy. COMPARISON: Mammography: August 10, 2021 and studies dating back to December 03, 2015 TECHNIQUE: Digital breast tomosynthesis is performed in both the craniocaudal and mediolateral oblique views along with computer-aided detection (CAD). Synthesized 2D images are generated from the tomosynthesis. Right exaggerated craniocaudal view performed. Study is limited due to difficulties with patient being positioned. Attempted magnification views. FINDINGS: There are scattered areas of fibroglandular density (ACR BI-RADS breast composition Category b). There is a stable parenchymal pattern present. Clip with architectural distortion seen anterior aspect of the right breast. The calcifications seen centrally within the right breast are stable out to 2 years. Results are provided to the patient at time of visit by the technologist. MM/MM tomosynthesis diagnostic RT IMPRESSION: There are no significant changes from prior study. ASSESSMENT: BI-RADS 2: Benign RECOMMENDATION: Routine annual mammography screening. This patient's information was entered into a reminder system with a target due date for their next mammogram.
== END 2022-03-09 14:44 | disposition home or self-care (01) ==
LOC: HO.MAMMO 14:43
PROVIDERS: PCP Internal Medicine; Visit Provider Internal Medicine
DX: R92.1 Mammographic calcification found on diagnostic imaging of breast (principal); Z90.12 Acquired absence of left breast and nipple
CPT/HCPCS: 77061; 77065

== ENCOUNTER 2022-04-11 20:04 | Emergency (ER) | payer MEDICARE, SELFPAY ==
--- NOTE | ~2022-04-11 | XR_ITS ---
EXAMINATION: 1. LEFT FOOT. 2. LEFT ANKLE CLINICAL INFORMATION: Fall. Pain. COMPARISON: Left foot 06/25/2019 TECHNIQUE: 1. Left foot. 3 views 2. Left ankle. 3 views FINDINGS: 1. Left foot. Residual deformity of old healed fracture of the distal shaft of the fourth and fifth metatarsal. Osseous union between the fourth and third distal metatarsal shaft. No acute fracture. No dislocation. Joint spaces are maintained. There is flattening of the plantar arch. No soft tissue abnormality. 2. Left ankle: No fracture. No dislocation. Ankle mortise is congruent. XR/XR foot LT 2V IMPRESSION: 1. Left foot. No acute abnormality. 2. Left ankle. No acute abnormality.
--- NOTE | ~2022-04-11 | XR_ITS ---
EXAMINATION: 1. LEFT FOOT. 2. LEFT ANKLE CLINICAL INFORMATION: Fall. Pain. COMPARISON: Left foot 06/25/2019 TECHNIQUE: 1. Left foot. 3 views 2. Left ankle. 3 views FINDINGS: 1. Left foot. Residual deformity of old healed fracture of the distal shaft of the fourth and fifth metatarsal. Osseous union between the fourth and third distal metatarsal shaft. No acute fracture. No dislocation. Joint spaces are maintained. There is flattening of the plantar arch. No soft tissue abnormality. 2. Left ankle: No fracture. No dislocation. Ankle mortise is congruent. XR/XR ankle LT min 3V IMPRESSION: 1. Left foot. No acute abnormality. 2. Left ankle. No acute abnormality.
--- NOTE | ~2022-04-11 | XR_ITS ---
EXAMINATION: XR CHEST CLINICAL INFORMATION: Fall. COMPARISON: Chest x-ray 10/22/2020. Left humerus 12/16/2019 TECHNIQUE: Frontal portable view of the chest was obtained. 8:55 PM FINDINGS: Lungs are clear. No pulmonary vascular congestion. There is no pleural effusion. The heart size is normal. The cardiac and mediastinal contours are normal. There are calcifications of the thoracic aorta. There are multilevel degenerative changes of dorsal spine. Residual deformity from old healed fracture of the proximal left humerus unchanged since left humerus radiograph 12/16/2019. XR/XR chest 1V IMPRESSION: No acute abnormality of chest.
--- NOTE | ~2022-04-11 | CT_ITS ---
EXAMINATION: CT HEAD WITHOUT CONTRAST CT CERVICAL SPINE WITHOUT CONTRAST CLINICAL INFORMATION: Blunt trauma with headache and neck pain COMPARISON: 10/22/2020 TECHNIQUE: Contiguous axial imaging was performed from the skull base to vertex without intravenous administration of contrast. In addition, helical noncontrast CT imaging was acquired through the cervical spine and source images were reviewed along with axial reconstructions and sagittal and coronal MPRs. DLP: 919 mGy-cm FINDINGS: HEAD: No intracranial mass, hemorrhage, or midline shift is visualized. Periventricular and subcortical white matter changes seen consistent chronic microvascular ischemic disease. Generalized atrophy is seen. Ventricles are prominent in size due to underlying atrophy. Bilateral basal ganglia calcifications are again seen. No extra-axial collections are identified. The paranasal sinuses are well aerated. CERVICAL SPINE: There is no evidence of acute cervical spine fracture. Vertebral body height and alignment is well maintained. No pre- or paravertebral soft tissue abnormality is identified. Degenerative changes with disc space narrowing and osteophyte formation is seen at the C2 throughout the cervical spine. Posterior facet joint arthropathy is seen diffusely throughout the cervical spine bilaterally. Apical fibrotic changes are seen. Stable groundglass opacity seen in the left lung apex anteriorly. Coarse calcification seen in the bilateral carotid arteries within the neck CT/CT head/brain wo IV con IMPRESSION: 1. No acute intracranial pathology. Stable chronic atrophy and microvascular ischemic changes 2. No CT evidence of acute cervical spine fracture or traumatic subluxation. Stable diffuse degenerative changes 3. Minimal groundglass opacity in the left upper lobe anteriorly.
--- NOTE | ~2022-04-11 | CT_ITS ---
EXAMINATION: CT HEAD WITHOUT CONTRAST CT CERVICAL SPINE WITHOUT CONTRAST CLINICAL INFORMATION: Blunt trauma with headache and neck pain COMPARISON: 10/22/2020 TECHNIQUE: Contiguous axial imaging was performed from the skull base to vertex without intravenous administration of contrast. In addition, helical noncontrast CT imaging was acquired through the cervical spine and source images were reviewed along with axial reconstructions and sagittal and coronal MPRs. DLP: 919 mGy-cm FINDINGS: HEAD: No intracranial mass, hemorrhage, or midline shift is visualized. Periventricular and subcortical white matter changes seen consistent chronic microvascular ischemic disease. Generalized atrophy is seen. Ventricles are prominent in size due to underlying atrophy. Bilateral basal ganglia calcifications are again seen. No extra-axial collections are identified. The paranasal sinuses are well aerated. CERVICAL SPINE: There is no evidence of acute cervical spine fracture. Vertebral body height and alignment is well maintained. No pre- or paravertebral soft tissue abnormality is identified. Degenerative changes with disc space narrowing and osteophyte formation is seen at the C2 throughout the cervical spine. Posterior facet joint arthropathy is seen diffusely throughout the cervical spine bilaterally. Apical fibrotic changes are seen. Stable groundglass opacity seen in the left lung apex anteriorly. Coarse calcification seen in the bilateral carotid arteries within the neck CT/CT cervical spine wo IV con IMPRESSION: 1. No acute intracranial pathology. Stable chronic atrophy and microvascular ischemic changes 2. No CT evidence of acute cervical spine fracture or traumatic subluxation. Stable diffuse degenerative changes 3. Minimal groundglass opacity in the left upper lobe anteriorly.
[2022-04-11 20:22] VITALS: BP 134/85; BP 146/84; PULSE 80; PULSE 81; RESP 18; TEMP 36.6; O2SAT 95; O2SAT 97; BMI 23.3
--- NOTE | 2022-04-11 20:38 | ED.FALL ---
HPI - Fall General Chief Complaint: Fall Stated Complaint: fall Source: patient and EMS Mode of arrival: EMS Limitations: no limitations History of Present Illness HPI Narrative: 81-year-old female presents via EMS for mechanical fall with head strike. Patient states that she tripped, ambulates with a cane per baseline, it is unsure of how she fell. She states the fall happened so quickly, she did hit her head, but does not report loss of consciousness. 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 Patient does have some neck pain, and left lower extremity pain. Does not report any prodromal events, denies fevers, chills, chest pain or pressure, palpitations, abdominal pain, abdominal distention, dysuria, weakness or fatigue. Patient denies symptoms indicating cauda equina. MD complaint: fall Onset (ago): hour(s) (Within the hour of arrival) Fall from: standing Fall witnessed: no Place fall occurred: home Loss of consciousness: none Prolonged down time: no Symptoms prior to fall: none Context: tripped/slipped Location of injury: head and neck Location of injury - extremities: left: ankle Severity: moderate Severity scale (1-10): 6 Quality: aching Associated symptoms (after fall): neck pain Related Data Home Medications Medication Instructions Recorded Confirmed atorvastatin 20 mg tablet 20 mg PO DAILY 07/16/20 02/16/21 ferrous sulfate 325 mg (65 mg 325 mg PO DAILY 07/16/20 02/16/21 iron) tablet VITAMIN D 3 PO 11/23/20 02/16/21 cyanocobalamin (vitamin B-12) 1,000 mcg PO DAILY 11/23/20 02/16/21 1,000 mcg tablet (Vitamin B-12) lorazepam 1 mg tablet 1 mg PO BEDTIME PRN 11/23/20 02/16/21 Previous Rx's Medication Instructions Recorded warfarin 5 mg tablet 5 mg PO DAILY #90 tabs 04/20/20 cholecalciferol (vitamin D3) 25 25 mcg PO DAILY #30 tabs 11/27/20 mcg (1,000 unit) tablet (Vitamin D3) cefuroxime axetil 500 mg tablet 500 mg PO Q12H 7 days #14 tabs 04/12/22 Allergies Allergy/AdvReac Type Severity Reaction Status Date / Time N.K.D.A. Allergy Unknown N/A Uncoded 05/12/20 09:07 Review of Systems Review of Systems: Constitutional: No Fever, No Chills ENT/Mouth: No Ear Pain, No Hoarseness, No sore throat Eyes: No Eye Pain, No Swelling, No Redness, No Foreign Body Cardiovascular: No Chest Pain, No SOB Respiratory: No Cough, No Dyspnea Gastrointestinal: No Nausea, No Vomiting, No Diarrhea, No abdominal Pain Genitourinary: No Dysuria, No Hematuria Musculoskeletal: positive neck pain and left ankle pain, No Myalgias, No Joint Swelling Skin: No Skin lacerations, No rash Neuro: No Weakness, No Numbness, No Paresthesias, No Loss of Consciousness, No Dizziness, No Headache Psych: No Anxiety/Panic, No Depression Heme/Lymph: no easy bruising, no Lymphadenopathy Endocrine: No Polyuria, No Polydipsia Yes all other systems are reviewed and are negative [facility] Past Medical History Attestation statement: The following information was validated with the patient. 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 Oriented X3. No acute distress. Normocephalic atraumatic Eyes: Pupils equal, round and reactive to light. EOMI. Sclera nonicteric. No pain on extraocular movements. ENT: Pharynx normal. Bilateral tympanic membranes intact. Neck: Normal inspection. Neck supple. No vertebral tenderness or step-offs. No nuchal rigidity. Muscle spasm noted to the left trapezius. CVS: Normal heart rate and rhythm. Pulses normal. Respiratory: No respiratory distress. Breath sounds normal. Abdomen: Soft and nontender. Skin: Skin warm and dry. Normal skin color. Normal skin turgor. Extremities: No lower extremity edema. Moves all extremities against resistance. Full range of motion to all extremities. Tenderness noted to the left lateral malleolar process. Pelvis is stable. Strength 5/5 to all extremities. Brisk capillary refill. Neuro: No motor deficit. No sensory deficit. Cranial nerves 2-12 intact. Course Course Course Narrative: 81-year-old female presents for evaluation for mechanical fall with head trauma in a C-collar via EMS. Patient does report some neck pain, able to recall most of the events excluding the fall. Patient stated fall happened so quickly that she cannot articulate the events around it. She does not report any prodromal events, and states that she was able to get up on her own. Patient has a small contusion to the crown of her head, and reports left lower extremity pain. She has full range of motion, is alert oriented x4, answering questions politely and appropriately, moves all extremities against resistance. No vertebral tenderness or step-offs. No nuchal rigidity. No new axial loading tenderness noted. Will order CT scan of head and cervical spine, labs and urinalysis. Will rule out ACS with troponin and EKG. Lab values are unremarkable, urinalysis positive for moderate leukocyte esterase, will treat with cefuroxime. Patient requests p.o. medications versus IV medications. Patient is articulate, able to tolerate p.o. fluids. CT scan of head and neck are negative for acute findings. X-ray of the left lower extremity is negative. Chest x-ray is negative. CT scan does indicate a ground-glass opacity to the left apex of the lung which is not visualized on x-ray. Patient does not report a cough, and is COVID negative. Plan of care is to discharge home with concussion protocol, treated with cefuroxime 250 mg every 12 hours for 7 days and have patient follow-up with primary care physician. Patient verbalized understanding of and agrees to plan of care discharge home. Verbalized understanding of signs and symptoms indicating need for emergent intervention. Patient's family will be picking this patient up. MDM - Fall Differential Diagnosis Differential diagnosis: Likely syncope, dislocation, fracture, compression fracture and concussion without loss of consciousness Medical Records Attestation: I reviewed the patient's medical records. Lab Data Attestation: I reviewed the patient's lab results. Result diagrams: 04/11/22 21:34 04/11/22 21:34 Labs: Lab Results 04/11/22 04/11/22 04/11/22 Range/Units 21:34 21:34 21:34 WBC 8.3 (4.8-10.8) X10*3/uL RBC 4.73 (4.20-5.50) X10*6/uL Hgb 14.5 (12.0-16.0) g/dl Hct 45.0 (37.0-47.0) % MCV 95.1 (80.0-98.0) fL MCH 30.7 (27.0-33.0) pg MCHC 32.2 (31.0-35.0) g/dl RDW 13.3 (11.0-16.0) % Plt Count 203 (160-400) X10*3/uL MPV 9.6 (9.4-12.3) fL Immature Gran % (Auto) 0.2 (0.0-0.4) % Neut % (Auto) 65.6 (45-73) % Lymph % (Auto) 24.6 (20-40) % Hernando % (Auto) 8.0 (2-11) % Eos % (Auto) 1.2 (0-4) % Baso % (Auto) 0.4 (0-2) % Lymph # (Auto) 2.1 (1.2-4.9) X10*3/uL Hernando # (Auto) 0.7 (0.1-1.2) X10*3/uL Eos # (Auto) 0.1 (0.0-0.4) X10*3/uL Baso # (Auto) 0.0 (0.0-0.2) X10*3/uL Abs Immat Gran (auto) 0.02 (0.00-0.03) X10*3/uL Absolute Neuts (auto) 5.5 (2.0-8.3) x10*3/uL Absolute Nucleated RBC 0.000 (0.0-0.012) X10*3/uL Nucleated RBC % (auto) 0.0 (0.0-0.2) /100WBC PT 9.9 L (10.0-13.1) SEC INR 0.9 (0.9-1.1) APTT 32.4 (26.0-36.4) SEC Sodium 140 (135-145) mmol/L Potassium 4.1 (3.3-5.1) mmol/L Chloride 104 (96-108) mmol/L Carbon Dioxide 24 (22-29) mmol/L Anion Gap 16 (12-20) BUN 16 (9-16) mg/dL Creatinine 0.94 (0.5-1.4) mg/dL Estim Creat Clear Calc 48.9 Estimated GFR 57 Random Glucose 100 (60-115) mg/dL Calcium 9.2 (8.4-10.2) mg/dL Total Bilirubin 0.4 (0.0-1.0) mg/dL Direct Bilirubin 0.2 (0.0-0.5) mg/dL AST 19 (5-31) U/L ALT 15 (0-31) U/L Alkaline Phosphatase 102 (39-117) U/L Troponin I High Sens (<3.5-17.0) ng/L Total Protein 7.3 (6.5-8.0) g/dL Albumin 4.2 (3.5-5.0) g/dL Lipase 79 H (8-78) U/L Urine Color Urine Appearance Urine pH (5.0-9.0) Ur Specific [place] (1.005-1.025) Urine Protein (Neg-Trace) mg/dL Urine Glucose (UA) (Negative) mg/dL Urine Ketones (Negative) mg/dL Urine Blood (Negative) Urine Nitrite (Negative) Ur Leukocyte Esterase (Negative) Urine RBC (0-2) /HPF Urine WBC (0-5) /HPF Ur Squamous Epith Cells (0-2) /HPF Urine Bacteria (None Seen) Hyaline Casts (0-2) /LPF COVID-19 (NATHALIE) (Negative) COVID-19 Clin Com 04/11/22 04/11/22 04/11/22 Range/Units 21:34 22:29 23:53 WBC (4.8-10.8) X10*3/uL RBC (4.20-5.50) X10*6/uL Hgb (12.0-16.0) g/dl Hct (37.0-47.0) % MCV (80.0-98.0) fL MCH (27.0-33.0) pg MCHC (31.0-35.0) g/dl RDW (11.0-16.0) % Plt Count (160-400) X10*3/uL MPV (9.4-12.3) fL Immature Gran % (Auto) (0.0-0.4) % Neut % (Auto) (45-73) % Lymph % (Auto) (20-40) % Hernando % (Auto) (2-11) % Eos % (Auto) (0-4) % Baso % (Auto) (0-2) % Lymph # (Auto) (1.2-4.9) X10*3/uL Hernando # (Auto) (0.1-1.2) X10*3/uL Eos # (Auto) (0.0-0.4) X10*3/uL Baso # (Auto) (0.0-0.2) X10*3/uL Abs Immat Gran (auto) (0.00-0.03) X10*3/uL Absolute Neuts (auto) (2.0-8.3) x10*3/uL Absolute Nucleated RBC (0.0-0.012) X10*3/uL Nucleated RBC % (auto) (0.0-0.2) /100WBC PT (10.0-13.1) SEC INR (0.9-1.1) APTT (26.0-36.4) SEC Sodium (135-145) mmol/L Potassium (3.3-5.1) mmol/L Chloride (96-108) mmol/L Carbon Dioxide (22-29) mmol/L Anion Gap (12-20) BUN (9-16) mg/dL Creatinine (0.5-1.4) mg/dL Estim Creat Clear Calc Estimated GFR Random Glucose (60-115) mg/dL Calcium (8.4-10.2) mg/dL Total Bilirubin (0.0-1.0) mg/dL Direct Bilirubin (0.0-0.5) mg/dL AST (5-31) U/L ALT (0-31) U/L Alkaline Phosphatase (39-117) U/L Troponin I High Sens < 3.5 (<3.5-17.0) ng/L Total Protein (6.5-8.0) g/dL Albumin (3.5-5.0) g/dL Lipase (8-78) U/L Urine Color Yellow Urine Appearance Clear Urine pH 6.5 (5.0-9.0) Ur Specific [place] <= 1.005 (1.005-1.025) Urine Protein Negative (Neg-Trace) mg/dL Urine Glucose (UA) Negative (Negative) mg/dL Urine Ketones Negative (Negative) mg/dL Urine Blood Negative (Negative) Urine Nitrite Negative (Negative) Ur Leukocyte Esterase Moderate (2+) H (Negative) Urine RBC 0-2 (0-2) /HPF Urine WBC 6-10 H (0-5) /HPF Ur Squamous Epith Cells 0-2 (0-2) /HPF Urine Bacteria Trace (None Seen) Hyaline Casts 0-2 (0-2) /LPF COVID-19 (NATHALIE) Negative (Negative) COVID-19 Clin Com See Note Imaging Data Chest x-ray: Attestation: I personally reviewed and interpreted this imaging study as follows: Radiologist's impression: COMPARISON: Chest x-ray 10/22/2020. Left humerus 12/16/2019 TECHNIQUE: Frontal portable view of the chest was obtained. 8:55 PM FINDINGS: ?Lungs are clear. No pulmonary vascular congestion. There is no pleural effusion. The heart size is normal. The cardiac and mediastinal contours are normal. There are calcifications of the thoracic aorta. There are multilevel degenerative changes of dorsal spine. ? Residual deformity from old healed fracture of the proximal left humerus unchanged since left humerus radiograph 12/16/2019. XR/XR chest 1V IMPRESSION: No acute abnormality of chest. ? Left foot ankle: Attestation: I personally reviewed and interpreted this imaging study as follows: Radiologist's impression: EXAMINATION: 1. LEFT FOOT. 2. LEFT ANKLE CLINICAL INFORMATION: Fall. Pain.? COMPARISON: Left foot 06/25/2019? TECHNIQUE: 1. Left foot. 3 views 2. Left ankle. 3 views? FINDINGS: 1. Left foot. Residual deformity of old healed fracture of the distal shaft of the fourth and fifth metatarsal. Osseous union between the fourth and third distal metatarsal shaft. No acute fracture. No dislocation. Joint spaces are maintained. There is flattening of the plantar arch. No soft tissue abnormality. 2. Left ankle: No fracture. No dislocation. Ankle mortise is congruent. ? XR/XR foot LT 2V IMPRESSION: ? 1. Left foot. No acute abnormality. 2. Left ankle. No acute abnormality.? ECG Data Attestation: I personally reviewed and interpreted this ECG as follows: ECG interpretation date: 04/11/22 ECG interpretation time: 20:49 Prior ECG tracings: available for review Interpretation: Vent. rate 77 BPM KS interval 166 ms QRS duration 82 ms QT/QTc 438/495 ms P-R-T axes 49 22 38 Normal sinus rhythm Prolonged QT Abnormal ECG When compared with ECG of 22-OCT-2020 15:20, No significant change was found Discharge Plan Discharge Clinical Impression: Fall, Concussion, Urinary tract infection Patient Disposition: Home, Self-Care Instructions: Concussion (ED), Fall Prevention for Older Adults (ED), Post Concussion Syndrome (ED), Urinary Tract Infection in Older Adults (ED) Additional Instructions: You were evaluated for injuries sustained from fall. CT scan of head and neck are negative for acute findings. Urinalysis indicates urinary tract infection. Please take cefuroxime 500 mg twice a day for the next 7 days. X-ray of the chest is negative, x-ray of left ankle and foot are negative for acute findings. Please follow-up with primary care physician this week for concussion protocol. Thank you for choosing this emergency department for evaluation. Please follow-up with primary care physician as needed. Return to the emergency department for any new, concerning, or worsening symptoms. Prescriptions: New cefuroxime axetil 500 mg tablet 500 mg PO Q12H 7 Days Qty: 14 0RF No Action cholecalciferol (vitamin D3) [Vitamin D3] 25 mcg (1,000 unit) Tablet 25 mcg PO DAILY Qty: 30 4RF atorvastatin 20 mg tablet 20 mg PO DAILY ferrous sulfate 325 mg (65 mg iron) tablet 325 mg PO DAILY warfarin 5 mg tablet 5 mg PO DAILY Qty: 90 0RF Protocol: Dose Management Condition: Monday (Week One) Dose/Route: 2.5 mg Instruction: 0.5 x 5 mg tablets Condition: Monday Dose/Route: 5 mg Instruction: 1 x 5 mg tablet Condition: Monday Dose/Route: 5 mg Instruction: 1 x 5 mg tablet Condition: Monday Dose/Route: 5 mg Instruction: 1 x 5 mg tablet Condition: Dose/Route: 5 mg Instruction: 1 x 5 mg tablet Condition: Monday Dose/Route: 5 mg Instruction: 1 x 5 mg tablet Condition: Monday Dose/Route: 5 mg Instruction: 1 x 5 mg tablet Condition: Monday (Week Two) Dose/Route: 5 mg Instruction: 1 x 5 mg tablet Condition: Monday Dose/Route: 2.5 mg Instruction: 0.5 x 5 mg tablets Condition: Monday Dose/Route: 5 mg Instruction: 1 x 5 mg tablet Condition: Monday Dose/Route: 5 mg Instruction: 1 x 5 mg tablet Condition: Dose/Route: 2.5 mg Instruction: 0.5 x 5 mg tablets Condition: Monday Dose/Route: 5 mg Instruction: 1 x 5 mg tablet Condition: Monday Dose/Route: 5 mg Instruction: 1 x 5 mg tablet Protocol Text: Adjustment Start Date: Monday02/19/21 INR Value: 1.4 INR Date: 02/19/21 Recheck Date: 02/24/21 Additional Instructions: TAKE 5MG TODAY NO GREENS FOR 2 DAYS EAT A RED FRUIT/ORANGE VEG cyanocobalamin (vitamin B-12) [Vitamin B-12] 1,000 mcg tablet 1,000 mcg PO DAILY VITAMIN D 3 PO Label Comments: 1 TAB DAILY lorazepam 1 mg tablet 1 mg PO BEDTIME PRN Referrals: Woody Joseph MD [Primary Care Provider] - 3 days (Fall, concussion, urinary tract infection) Interventions: ED Discharge Assessment Last Done: 04/12/22 00:24 Discharge Date/Time: 04/12/22 00:26
--- NOTE | 2022-04-11 20:42 | ECG_ITS ---
Test Reason : fall Blood Pressure : / mmHG Vent. Rate : 077 BPM Atrial Rate : 077 BPM P-R Int : 166 ms QRS Dur : 082 ms QT Int : 438 ms P-R-T Axes : 049 022 038 degrees QTc Int : 495 ms Normal sinus rhythm Prolonged QT Abnormal ECG When compared with ECG of 22-OCT-2020 15:20, No significant change was found Referred By: Luisana Cat Electronically Signed By:ANTOINETTE YEE
[2022-04-11 21:45] LABS: MANUAL DIFF FLAG NO
[2022-04-11 21:47] LABS: Basophils Percent Auto 0.4 % (0-2); Eosinophils Absolute Auto 0.1 X10*3/uL (0.0-0.4); Eosinophils Percent Auto 1.2 % (0-4); Hemoglobin 14.5 g/dl (12.0-16.0); Imm Gran Abs Auto 0.02 X10*3/uL (0.00-0.03); Imm Gran Pct Auto 0.2 % (0.0-0.4); Lymphocytes Absolute Auto 2.1 X10*3/uL (1.2-4.9); Lymphocytes Percent Auto 24.6 % (20-40); Mean Corpuscular HGB Conc 32.2 g/dl (31.0-35.0); Mean Corpuscular Hemoglobin 30.7 pg (27.0-33.0); Mean Corpuscular Volume 95.1 fL (80.0-98.0); Mean Platelet Volume 9.6 fL (9.4-12.3); Monocytes Absolute Auto 0.7 X10*3/uL (0.1-1.2); Neutrophils Absolute Auto 5.5 x10*3/uL (2.0-8.3); Neutrophils Percent Auto 65.6 % (45-73); Platelet Count 203 X10*3/uL (160-400); Red Blood Count 4.73 X10*6/uL (4.20-5.50); Red Cell Distribution Width 13.3 % (11.0-16.0); White Blood Count 8.3 X10*3/uL (4.8-10.8)
[2022-04-11 21:48] LABS: INTERNATIONAL NORM RATIO 0.9 (0.9-1.1); Prothrombin Time 9.9 SEC (10.0-13.1)
[2022-04-11 21:50] LABS: Partial Thromboplastin Time 32.4 SEC (26.0-36.4)
[2022-04-11 21:57] LABS: Alanine Aminotransferase 15 U/L (0-31); Albumin Level 4.2 g/dL (3.5-5.0); Alkaline Phosphatase 102 U/L (39-117); Anion Gap 16 (12-20); Aspartate Amino Transferase 19 U/L (5-31); Bilirubin Direct 0.2 mg/dL (0.0-0.5); Bilirubin Total 0.4 mg/dL (0.0-1.0); Blood Urea Nitrogen 16 mg/dL (9-16); Calcium 9.2 mg/dL (8.4-10.2); Carbon Dioxide 24 mmol/L (22-29); Chloride 104 mmol/L (96-108); Creatinine Clr Calc Pharmacy 48.9; Estimated Glomerular Filt Rate 57; Glucose Random 100 mg/dL (60-115); Lipase 79 U/L (8-78); Potassium 4.1 mmol/L (3.3-5.1); Sodium 140 mmol/L (135-145); Total Protein 7.3 g/dL (6.5-8.0)
[2022-04-11 22:13] LABS: Troponin-I High Sensitivity < 3.5 ng/L (<3.5-17.0)
[2022-04-11 22:38] VITALS: BP 151/90; PULSE 86; RESP 18; TEMP 36.6; O2SAT 97
[2022-04-11 22:47] LABS: Appearance Urine Clear; Color Urine Yellow; Glucose Urine UA Negative (Negative); Leukocyte Esterase Urine Moderate (2+) (Negative); Nitrite Urine Negative (Negative); PH 6.5 (5.0-9.0); Specific Gravity - Urine <= 1.005 (1.005-1.025); UMIC TRIGGER UACC YES; Urine Blood Negative (Negative); Urine Ketones Negative (Negative); Urine Protein Negative (Neg-Trace)
[2022-04-11 22:55] LABS: Bacteria Urine Trace (None Seen); Hyaline Casts Urine 0-2 /LPF (0-2); RBC Urine 0-2 /HPF (0-2); Squamous Epithelial Cell Urine 0-2 /HPF (0-2); UACC Culture Trigger YES
[2022-04-12 00:14] LABS: COVID-19 Test Negative (Negative)
== END 2022-04-12 00:26 | disposition home or self-care (01) ==
PROVIDERS: Nurse Practitioner Family; Emergency Provider Internal Medicine; PCP Internal Medicine
DX: S06.0X0A Concussion without loss of consciousness, initial encounter (principal); S00.03XA Contusion of scalp, initial encounter; W19.XXXA Unspecified fall, initial encounter; N39.0 Urinary tract infection, site not specified; I10 Essential (primary) hypertension; E78.00 Pure hypercholesterolemia, unspecified; Z79.02 Long term (current) use of antithrombotics/antiplatelets; Z79.899 Other long term (current) drug therapy; Z79.01 Long term (current) use of anticoagulants; Y93.9 Activity, unspecified; Y92.019 Unspecified place in single-family (private) house as the place of occurrence of the external cause; Y99.9 Unspecified external cause status; Z20.822 Contact with and (suspected) exposure to COVID-19; Z86.711 Personal history of pulmonary embolism
CPT/HCPCS: 36415; 70450; 71045; 72125; 73610; 73620; 80048; 80076; 81001; 83690; 84484; 85025; 85610; 85730; 87086; 87635; 93005; 99283; 99284

== ENCOUNTER 2022-10-13 15:33 | Emergency (ER) | payer MEDICARE, SELFPAY ==
--- NOTE | ~2022-10-13 | CT_ITS ---
EXAMINATION: CT head/brain wo IV con, CT cervical spine wo IV con INDICATION INFORMATION: Reason for Exam sp fall, on coumadin COMPARISON: CT head and cervical spine 04/11/2022 CT chest 03/14/2016 TECHNIQUE: Separate noncontrast CT examinations of the head and cervical spine were performed. Coronal and sagittal images were created for each examination at the technologist workstation. This CT examination was performed using dose optimization techniques as appropriate, variously including the following: *Automated exposure control *Adjustment of mA and/or kV according to patient size (this includes techniques or standardized protocols for targeted exams where dose is matched to indication/reason for exam; i.e. extremities or head) *Use of iterative reconstruction technique DLP: 953 mGy-cm FINDINGS: Head: No acute osseous or soft tissue abnormality. The mastoid air cells and visualized portions of the paranasal sinuses are well aerated. There is no evidence of acute intracranial hemorrhage or territorial infarction. No abnormal mass effect or midline shift is seen. [place] to white matter differentiation is well preserved. No extra-axial fluid collections are identified. No hydrocephalus. Physiologic mineralization the bilateral basal ganglia. Patchy periventricular and deep white matter hypoattenuation is consistent with mild small vessel ischemic changes. Cervical spine: There is no evidence of acute cervical spine fracture. Vertebral bodies remain normal in height. Levoconvex curvature of the cervical spine. Multilevel degenerative disc disease. Mild anterolisthesis of C7 on T1 likely degenerative. No pre- or paravertebral soft tissue abnormality is identified. Similar biapical pleural-parenchymal scarring with some left apical groundglass and bandlike consolidation, compared to recent prior however new or progressed from CT chest 2016. The thyroid gland is unremarkable. CT/CT cervical spine wo IV con IMPRESSION: 1. No acute intracranial abnormality. 2. No cervical spine fracture or traumatic malalignment. Levoconvex curvature of the cervical spine with multilevel degenerative disc disease and degenerative listhesis as detailed above. 3. Apical pleural parenchymal scarring with left apical groundglass and bandlike consolidation, similar compared to recent prior however new or progressed from CT chest 2016 and this could be further evaluated with dedicated nonemergent CT chest.
--- NOTE | ~2022-10-13 | CT_ITS ---
EXAMINATION: CT head/brain wo IV con, CT cervical spine wo IV con INDICATION INFORMATION: Reason for Exam sp fall, on coumadin COMPARISON: CT head and cervical spine 04/11/2022 CT chest 03/14/2016 TECHNIQUE: Separate noncontrast CT examinations of the head and cervical spine were performed. Coronal and sagittal images were created for each examination at the technologist workstation. This CT examination was performed using dose optimization techniques as appropriate, variously including the following: *Automated exposure control *Adjustment of mA and/or kV according to patient size (this includes techniques or standardized protocols for targeted exams where dose is matched to indication/reason for exam; i.e. extremities or head) *Use of iterative reconstruction technique DLP: 953 mGy-cm FINDINGS: Head: No acute osseous or soft tissue abnormality. The mastoid air cells and visualized portions of the paranasal sinuses are well aerated. There is no evidence of acute intracranial hemorrhage or territorial infarction. No abnormal mass effect or midline shift is seen. [place] to white matter differentiation is well preserved. No extra-axial fluid collections are identified. No hydrocephalus. Physiologic mineralization the bilateral basal ganglia. Patchy periventricular and deep white matter hypoattenuation is consistent with mild small vessel ischemic changes. Cervical spine: There is no evidence of acute cervical spine fracture. Vertebral bodies remain normal in height. Levoconvex curvature of the cervical spine. Multilevel degenerative disc disease. Mild anterolisthesis of C7 on T1 likely degenerative. No pre- or paravertebral soft tissue abnormality is identified. Similar biapical pleural-parenchymal scarring with some left apical groundglass and bandlike consolidation, compared to recent prior however new or progressed from CT chest 2015. The thyroid gland is unremarkable. CT/CT head/brain wo IV con IMPRESSION: 1. No acute intracranial abnormality. 2. No cervical spine fracture or traumatic malalignment. Levoconvex curvature of the cervical spine with multilevel degenerative disc disease and degenerative listhesis as detailed above. 3. Apical pleural parenchymal scarring with left apical groundglass and bandlike consolidation, similar compared to recent prior however new or progressed from CT chest 2016 and this could be further evaluated with dedicated nonemergent CT chest.
--- NOTE | ~2022-10-13 | XR_ITS ---
EXAMINATION: XR CHEST CLINICAL INFORMATION: Cough and shortness of breath COMPARISON: 04/11/2022 TECHNIQUE: Frontal view of the chest was obtained. FINDINGS: The heart and pulmonary vessels appear normal. Some scattered areas of scarring are seen. No infiltrates effusions or lung masses. The aorta is mildly ectatic. Degenerative changes are present in the spine as follows both shoulders. Possible fracture left shoulder. XR/XR chest 1V IMPRESSION: No acute intrathoracic disease.
[2022-10-13 15:40] VITALS: BP 141/90; BP 167/103; PULSE 110; PULSE 86; RESP 18; TEMP 36.7; O2SAT 96; O2SAT 98; BMI 21.4
--- NOTE | 2022-10-13 15:50 | PC.NURSE ---
pt alert, oriented to place but unsure of time. witnessed fall outside, no headstrike. Pt is unsure of medical history, denies thinners but said she used to take them and stopped a few weeks ago . call resendiz within reach, will cont to monitor.
--- NOTE | 2022-10-13 17:49 | PC.NURSE ---
this RN found pt attempting exit bed, pt reporting she wants to leave now, this RN assisted pt back into bed, provided her with warm blankets and encruoaged her to stay until being seen by the doctor. Pt stated that her nephew Edward is in the waiting room, this RN attempted to call pts nephew but no response, pt aware
[2022-10-13 17:52] VITALS: BP 149/78; PULSE 79; RESP 17; O2SAT 99
--- NOTE | 2022-10-13 17:55 | PC.NURSE ---
pt is alert to self, confused as to place and time. Pt unsteady, shuffles with feet. Respirations even and unlabored at this time
--- NOTE | 2022-10-13 18:35 | ECG_ITS ---
Test Reason : FALL Blood Pressure : / mmHG Vent. Rate : 090 BPM Atrial Rate : 090 BPM P-R Int : 174 ms QRS Dur : 072 ms QT Int : 404 ms P-R-T Axes : 063 016 046 degrees QTc Int : 494 ms Normal sinus rhythm Prolonged QT Abnormal ECG When compared with ECG of 11-APR-2022 20:49, No significant change was found Referred By: Trent Escamilla Electronically Signed By:WILLIE COLEMAN
--- NOTE | 2022-10-13 18:35 | ED.FALL ---
HPI - Fall General Chief Complaint: Fall Stated Complaint: AMS Time Seen by Provider: 10/13/22 17:58 Source: patient Mode of arrival: EMS Limitations: no limitations History of Present Illness HPI Narrative: 82-year-old female who presents emergency department for evaluation of a fall. Patient states that she was walking outside. She got to the end the street, she states that she felt dizzy and grabbed her the fence. She then lowered herself to the ground. She denied any head injury. She states that there were 2 men in a car that were turning the corner, they got out of the car and helped her up. Then called 911. The patient states that she was not feeling ill over the past several days however she states that 2 weeks prior she did have a cold with a cough and headache. She currently has no complaints. She denies fever, chills, rhinorrhea, cough, chest pain, shortness of breath, nausea, vomiting, diarrhea. She denied dysuria but she states she has had some urinary frequency. Related Data Home Medications Medication Instructions Recorded Confirmed atorvastatin 20 mg tablet 20 mg PO DAILY 07/16/20 02/16/21 ferrous sulfate 325 mg (65 mg 325 mg PO DAILY 07/16/20 02/16/21 iron) tablet VITAMIN D 3 PO 11/23/20 02/16/21 cyanocobalamin (vitamin B-12) 1,000 mcg PO DAILY 11/23/20 02/16/21 1,000 mcg tablet (Vitamin B-12) lorazepam 1 mg tablet 1 mg PO BEDTIME PRN 11/23/20 02/16/21 Previous Rx's Medication Instructions Recorded warfarin 5 mg tablet 5 mg PO DAILY #90 tabs 04/20/20 cholecalciferol (vitamin D3) 25 25 mcg PO DAILY #30 tabs 11/27/20 mcg (1,000 unit) tablet (Vitamin D3) cefuroxime axetil 500 mg tablet 500 mg PO Q12H 7 days #14 tabs 04/12/22 cefuroxime axetil 250 mg tablet 250 mg PO BID 5 days #10 tabs 10/14/22 Allergies Allergy/AdvReac Type Severity Reaction Status Date / Time N.K.D.A. Allergy Unknown N/A Uncoded 05/12/20 09:07 Review of Systems Review of Systems: Yes all other systems are reviewed and are negative [facility] Past Medical History [facility] Narrative: Social history: The patient states that she has a nephew that stays with her. She denies tobacco and alcohol use. She denies drug use. 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 Surgical History History of left total mastectomy Family History Family History Brother History of stomach cancer History of liver cancer Social History Social History Use of substances other than those prescribed or required for medical reasons: No Advance Directives: Yes Advance Directives on File: Yes Advance Directives Date on File: 10/22/20 Physical Exam Vital Signs: Vital Signs: Last Vital Signs Temp 98.1 F 10/13/22 15:40 Pulse 93 10/13/22 19:57 Resp 18 10/13/22 19:57 BP 160/94 H 10/13/22 19:57 Pulse Ox 96 10/13/22 19:57 O2 Del Method Room Air 10/13/22 19:57 BMI result Body Mass Index 21.4 Const: General: cooperative and no acute distress Orientation/consciousness: oriented to person and oriented to place Limitations: no limitations HEENT: Head: Yes normal to inspection, Yes normocephalic and Yes atraumatic Ears: external ears normal General nose exam: Normal external nose present Face and sinus: Yes normal facial exam Mouth: Normal oral and palatal mucosa present Throat: Yes posterior oropharynx normal Eyes: General: appearance normal, both eyes and all related structures Pupils: Equal, round and reactive pupils present Neck: Neck: Yes normal visual inspection, Yes no lymphadenopathy, Yes trachea midline and Yes supple Chest: Chest palpation & inspection: normal inspection of the chest and normal palpation of entire chest wall Resp: Effort & Inspection: normal respiratory effort and able to speak in complete sentences Auscultation: clear to auscultation bilaterally Cardio: Rate: regular rate Rhythm: regular rhythm Heart sounds: S1 normal heart sound present, S2 normal heart sound present and no murmurs GI: Inspection: Yes normal to inspection Palpation (GI): Soft to palpation, nontender and no guarding Auscultation: normal bowel sounds : General: Yes no CVA tenderness Back/Spine/Pelvis: Back: no CVA tenderness Skin: General skin exam: no rashes or lesions noted Neuro: General: oriented to person and oriented to place Cranial nerves: Yes CN's II-XII intact bilaterally and Yes Equal, round and reactive pupils present Cognition (Neuro): normal cognition Motor exam (neuro): 5/5 motor strength present throughout Extrem: General: Yes normal to inspection Psych: Appearance: grossly normal Speech and movement: Normal speech and movement present Affect: normal affect Attitude: cooperative Medications Administered Discontinued Medications Generic Name Dose Route Start Last Admin Trade Name Freq PRN Reason Stop Dose Admin Sodium Chloride 1,000 mls @ 999 mls/hr 10/13/22 18:35 10/13/22 19:41 Ns IV 10/13/22 19:35 999 mls/hr .Q1H1M STA Administration Ceftriaxone Sodium 1 gm/ 50 mls @ 100 mls/hr 10/13/22 21:34 10/13/22 22:58 Sodium Chloride IV 10/13/22 22:03 100 mls/hr ONCE ONE Administration Medical Decision Making Medical Decision Making MDM Narrative: 52-year-old female who presents emergency department for evaluation of a fall. She states she was walking outside when she felt dizzy, grabbed for a fence and then lowered herself to the ground. Patient has had no recent illness and review of systems was negative. She had no complaints on presentation. 2125: My interpretation of the laboratory tests is as follows: CBC normal. Coags normal. BUN elevated 21 with a normal creatinine. Urinalysis revealed 2+ leukocyte esterase, small amount of blood, microscopic revealed 11-20 WBCs, 0-2 squamous cells, 2+ bacteria. Patient's urine is concerning for possible urinary tract infection, she has grown E coli and Klebsiella pneumoniae out of her urine in the past. These organisms were sensitive to level floxacillin and ceftriaxone. BNP was normal. Troponin was detectable but not elevated 12.6 at 19:40. This will be repeated at 22:40. Patient's 12 EKG was unremarkable. 0114: Repeat troponin was 16.2 suggesting that she did not have any myocardial injury is the cause of her fall. At this time, the patient does not have a way to get home and there is no when home to let her in. She states that her nephew was in [place] but will return in the morning. Therefore, the patient will be kept in the emergency department that she can be safely discharged. I will prescribe cefuroxime 250 mg every 12 hours for 5 days for urinary tract infection. Since the patient will be in the emergency department until the morning, the patient's care was turned over to my colleague, Dr. Soria Differential Diagnosis Differential diagnosis includes was not limited to dehydration, volume depletion, urinary tract infection, arrhythmia, Lab Data [facility] Lab Attestation statement: I reviewed the patient's lab results. Please see MDM 10/13/22 19:40 10/13/22 19:39 Labs: Lab Results 10/13/22 10/13/22 10/13/22 Range/Units 19:37 19:38 19:39 WBC (4.8-10.8) X10*3/uL RBC (4.20-5.50) X10*6/uL Hgb (12.0-16.0) g/dl Hct (37.0-47.0) % MCV (80.0-98.0) fL MCH (27.0-33.0) pg MCHC (31.0-35.0) g/dl RDW (11.0-16.0) % Plt Count (160-400) X10*3/uL MPV (9.4-12.3) fL Immature Gran % (Auto) (0.0-0.4) % Neut % (Auto) (45-73) % Lymph % (Auto) (20-40) % [place] % (Auto) (2-11) % Eos % (Auto) (0-4) % Baso % (Auto) (0-2) % Lymph # (Auto) (1.2-4.9) X10*3/uL [place] # (Auto) (0.1-1.2) X10*3/uL Eos # (Auto) (0.0-0.4) X10*3/uL Baso # (Auto) (0.0-0.2) X10*3/uL Abs Immat Gran (auto) (0.00-0.03) X10*3/uL Absolute Neuts (auto) (2.0-8.3) x10*3/uL Absolute Nucleated RBC (0.0-0.012) X10*3/uL Nucleated RBC % (auto) (0.0-0.2) /100WBC PT 10.8 (10.0-13.1) SEC INR 0.9 (0.9-1.1) APTT 32.1 (26.0-36.4) SEC Sodium (135-145) mmol/L Potassium (3.3-5.1) mmol/L Chloride (96-108) mmol/L Carbon Dioxide (22-29) mmol/L Anion Gap (12-20) BUN (9-16) mg/dL Creatinine (0.5-1.4) mg/dL Estim Creat Clear Calc Estimated GFR Random Glucose (60-115) mg/dL Calcium (8.4-10.2) mg/dL Total Bilirubin (0.0-1.0) mg/dL AST (5-31) U/L ALT (0-31) U/L Alkaline Phosphatase (39-117) U/L Total Creatine Kinase (26-140) U/L Troponin I High Sens (<3.5-17.0) ng/L B-Natriuretic Peptide (<100) pg/mL Total Protein (6.5-8.0) g/dL Albumin (3.5-5.0) g/dL Urine Color Urine Appearance Urine pH (5.0-9.0) Ur Specific [place] (1.005-1.025) Urine Protein (Neg-Trace) mg/dL Urine Glucose (UA) (Negative) mg/dL Urine Ketones (Negative) mg/dL Urine Blood (Negative) Urine Nitrite (Negative) Ur Leukocyte Esterase (Negative) Urine RBC (0-2) /HPF Urine WBC (0-5) /HPF Ur Squamous Epith Cells (0-2) /HPF Urine Bacteria (None Seen) Hyaline Casts (0-2) /LPF COVID-19 (NATHALIE) Negative (Negative) COVID-19 Clin Com See Note Influenza Type A ([place]) Negative (Negative) Influenza Type B ([place]) Negative (Negative) Influenza A & B Note See Note 10/13/22 10/13/22 10/13/22 Range/Units 19:39 19:39 19:39 WBC (4.8-10.8) X10*3/uL RBC (4.20-5.50) X10*6/uL Hgb (12.0-16.0) g/dl Hct (37.0-47.0) % MCV (80.0-98.0) fL MCH (27.0-33.0) pg MCHC (31.0-35.0) g/dl RDW (11.0-16.0) % Plt Count (160-400) X10*3/uL MPV (9.4-12.3) fL Immature Gran % (Auto) (0.0-0.4) % Neut % (Auto) (45-73) % Lymph % (Auto) (20-40) % [place] % (Auto) (2-11) % Eos % (Auto) (0-4) % Baso % (Auto) (0-2) % Lymph # (Auto) (1.2-4.9) X10*3/uL [place] # (Auto) (0.1-1.2) X10*3/uL Eos # (Auto) (0.0-0.4) X10*3/uL Baso # (Auto) (0.0-0.2) X10*3/uL Abs Immat Gran (auto) (0.00-0.03) X10*3/uL Absolute Neuts (auto) (2.0-8.3) x10*3/uL Absolute Nucleated RBC (0.0-0.012) X10*3/uL Nucleated RBC % (auto) (0.0-0.2) /100WBC PT (10.0-13.1) SEC INR (0.9-1.1) APTT (26.0-36.4) SEC Sodium 141 (135-145) mmol/L Potassium 4.1 (3.3-5.1) mmol/L Chloride 107 (96-108) mmol/L Carbon Dioxide 24 (22-29) mmol/L Anion Gap 14 (12-20) BUN 21 H (9-16) mg/dL Creatinine 0.78 (0.5-1.4) mg/dL Estim Creat Clear Calc 59.9 Estimated GFR > 60 Random Glucose 91 (60-115) mg/dL Calcium 9.1 (8.4-10.2) mg/dL Total Bilirubin 1.0 (0.0-1.0) mg/dL AST 17 (5-31) U/L ALT 13 (0-31) U/L Alkaline Phosphatase 91 (39-117) U/L Total Creatine Kinase 66 (26-140) U/L Troponin I High Sens 12.6 (<3.5-17.0) ng/L B-Natriuretic Peptide 66 (<100) pg/mL Total Protein 6.3 L (6.5-8.0) g/dL Albumin 3.7 (3.5-5.0) g/dL Urine Color Urine Appearance Urine pH (5.0-9.0) Ur Specific [place] (1.005-1.025) Urine Protein (Neg-Trace) mg/dL Urine Glucose (UA) (Negative) mg/dL Urine Ketones (Negative) mg/dL Urine Blood (Negative) Urine Nitrite (Negative) Ur Leukocyte Esterase (Negative) Urine RBC (0-2) /HPF Urine WBC (0-5) /HPF Ur Squamous Epith Cells (0-2) /HPF Urine Bacteria (None Seen) Hyaline Casts (0-2) /LPF COVID-19 (NATHALIE) (Negative) COVID-19 Clin Com Influenza Type A ([place]) (Negative) Influenza Type B ([facility]) (Negative) Influenza A & B Note 10/13/22 10/13/22 Range/Units 19:40 20:07 WBC 7.6 (4.8-10.8) X10*3/uL RBC 4.61 (4.20-5.50) X10*6/uL Hgb 14.1 (12.0-16.0) g/dl Hct 42.8 (37.0-47.0) % MCV 92.8 (80.0-98.0) fL MCH 30.6 (27.0-33.0) pg MCHC 32.9 (31.0-35.0) g/dl RDW 13.5 (11.0-16.0) % Plt Count 221 (160-400) X10*3/uL MPV 9.6 (9.4-12.3) fL Immature Gran % (Auto) 0.3 (0.0-0.4) % Neut % (Auto) 64.8 (45-73) % Lymph % (Auto) 27.1 (20-40) % [place] % (Auto) 6.6 (2-11) % Eos % (Auto) 0.8 (0-4) % Baso % (Auto) 0.4 (0-2) % Lymph # (Auto) 2.1 (1.2-4.9) X10*3/uL [place] # (Auto) 0.5 (0.1-1.2) X10*3/uL Eos # (Auto) 0.1 (0.0-0.4) X10*3/uL Baso # (Auto) 0.0 (0.0-0.2) X10*3/uL Abs Immat Gran (auto) 0.02 (0.00-0.03) X10*3/uL Absolute Neuts (auto) 4.9 (2.0-8.3) x10*3/uL Absolute Nucleated RBC 0.000 (0.0-0.012) X10*3/uL Nucleated RBC % (auto) 0.0 (0.0-0.2) /100WBC PT (10.0-13.1) SEC INR (0.9-1.1) APTT (26.0-36.4) SEC Sodium (135-145) mmol/L Potassium (3.3-5.1) mmol/L Chloride (96-108) mmol/L Carbon Dioxide (22-29) mmol/L Anion Gap (12-20) BUN (9-16) mg/dL Creatinine (0.5-1.4) mg/dL Estim Creat Clear Calc Estimated GFR Random Glucose (60-115) mg/dL Calcium (8.4-10.2) mg/dL Total Bilirubin (0.0-1.0) mg/dL AST (5-31) U/L ALT (0-31) U/L Alkaline Phosphatase (39-117) U/L Total Creatine Kinase (26-140) U/L Troponin I High Sens (<3.5-17.0) ng/L B-Natriuretic Peptide (<100) pg/mL Total Protein (6.5-8.0) g/dL Albumin (3.5-5.0) g/dL Urine Color Yellow Urine Appearance Clear Urine pH 6.0 (5.0-9.0) Ur Specific [place] 1.020 (1.005-1.025) Urine Protein Negative (Neg-Trace) mg/dL Urine Glucose (UA) Negative (Negative) mg/dL Urine Ketones 15 (Negative) mg/dL Urine Blood Small (1+) H (Negative) Urine Nitrite Negative (Negative) Ur Leukocyte Esterase Moderate (2+) H (Negative) Urine RBC 0-2 (0-2) /HPF Urine WBC 11-20 H (0-5) /HPF Ur Squamous Epith Cells 0-2 (0-2) /HPF Urine Bacteria 2+ (None Seen) Hyaline Casts 0-2 (0-2) /LPF COVID-19 (NATHALIE) (Negative) COVID-19 Clin Com Influenza Type A ([facility]) (Negative) Influenza Type B ([facility]) (Negative) Influenza A & B Note Independent Interpretation I performed an independent interpretation of an: EKG Interpretation: My interpretation the patient's 12 EKG done at 19:09 hours is as follows: Normal sinus rhythm rate of 90, normal VA and QRS duration, prolonged QTC of 494 milliseconds, no ST segment elevation, no ST segment depression, no PACs, no PVCs, no T-wave abnormalities. Radiology Impression Discussion of test interpretation with radiology: I have reviewed the radiologist's reading. Radiologist Impression: CT/CT head/brain wo IV con IMPRESSION: 1. No acute intracranial abnormality. 2. No cervical spine fracture or traumatic malalignment. Levoconvex curvature of the cervical spine with multilevel degenerative disc disease and degenerative listhesis as detailed above. 3. Apical pleural parenchymal scarring with left apical groundglass and bandlike consolidation, similar compared to recent prior however new or progressed from CT chest 2016 and this could be further evaluated with dedicated nonemergent CT chest. Dictated By:Jodee Kim MDSigned By:<Electronically signed by Jodee Kim MD in [place]>[id number] Discharge Plan Discharge Clinical Impression: Fall, Urinary tract infection, Acute dehydration Patient Disposition: Home, Self-Care Instructions: Dehydration (ED), Urinary Tract Infection in Women (ED) Additional Instructions: Your blood work was unremarkable. Your urinalysis and microscopic evaluation of your urine is consistent with a urinary tract infection. I believe that your dehydrated and possibly week secondary to urinary tract infection and this is what caused due to fall. Your treated with IV fluid and an antibiotic called ceftriaxone 1 g IV. This antibiotic will last for 24 hours. I am prescribing the antibiotics cefuroxime 250 mg pills, 1 pill every 12 hours for 5 days for your urine infection Make sure you resting increase the amount of fluid that you drink over the next 3 or 4 days to prevent dehydration. Take Tylenol (acetaminophen) 500 mg pills, 2 pills every 6 hours as needed for pain or fever. Follow-up with your doctor in 2 days. Please return to the emergency department if your symptoms get worse or if you develop any symptoms that are concerning to you. Prescriptions: New cefuroxime axetil 250 mg tablet 250 mg PO BID 5 Days Qty: 10 0RF No Action cholecalciferol (vitamin D3) [Vitamin D3] 25 mcg (1,000 unit) Tablet 25 mcg PO DAILY Qty: 30 4RF cefuroxime axetil 500 mg tablet 500 mg PO Q12H 7 Days Qty: 14 0RF atorvastatin 20 mg tablet 20 mg PO DAILY ferrous sulfate 325 mg (65 mg iron) tablet 325 mg PO DAILY warfarin 5 mg tablet 5 mg PO DAILY Qty: 90 0RF Protocol: Dose Management Condition: Monday (Week One) Dose/Route: 2.5 mg Instruction: 0.5 x 5 mg tablets Condition: Monday Dose/Route: 5 mg Instruction: 1 x 5 mg tablet Condition: Monday Dose/Route: 5 mg Instruction: 1 x 5 mg tablet Condition: Monday Dose/Route: 5 mg Instruction: 1 x 5 mg tablet Condition: Dose/Route: 5 mg Instruction: 1 x 5 mg tablet Condition: Monday Dose/Route: 5 mg Instruction: 1 x 5 mg tablet Condition: Monday Dose/Route: 5 mg Instruction: 1 x 5 mg tablet Condition: Monday (Week Two) Dose/Route: 5 mg Instruction: 1 x 5 mg tablet Condition: Monday Dose/Route: 2.5 mg Instruction: 0.5 x 5 mg tablets Condition: Monday Dose/Route: 5 mg Instruction: 1 x 5 mg tablet Condition: Monday Dose/Route: 5 mg Instruction: 1 x 5 mg tablet Condition: Dose/Route: 2.5 mg Instruction: 0.5 x 5 mg tablets Condition: Monday Dose/Route: 5 mg Instruction: 1 x 5 mg tablet Condition: Monday Dose/Route: 5 mg Instruction: 1 x 5 mg tablet Protocol Text: Adjustment Start Date: Monday02/19/21 INR Value: 1.4 INR Date: 02/19/21 Recheck Date: 02/24/21 Additional Instructions: TAKE 5MG TODAY NO GREENS FOR 2 DAYS EAT A RED FRUIT/ORANGE VEG cyanocobalamin (vitamin B-12) [Vitamin B-12] 1,000 mcg tablet 1,000 mcg PO DAILY VITAMIN D 3 PO Patient Comments: 1 TAB DAILY lorazepam 1 mg tablet 1 mg PO BEDTIME PRN
--- NOTE | 2022-10-13 18:56 | MHC.EDTECH ---
THIS TECH TOOK OVER @ 1900 EKG WAS NOT DONE WILL DO EKG NOW
[2022-10-13] MEDS: 0.9 % Sodium Chloride 1,000 ML 999 ML IV (19:41)
[2022-10-13 19:45] LABS: MANUAL DIFF FLAG NO
[2022-10-13 19:47] LABS: Basophils Percent Auto 0.4 % (0-2); Eosinophils Absolute Auto 0.1 X10*3/uL (0.0-0.4); Eosinophils Percent Auto 0.8 % (0-4); Hematocrit 42.8 % (37.0-47.0); Hemoglobin 14.1 g/dl (12.0-16.0); Imm Gran Abs Auto 0.02 X10*3/uL (0.00-0.03); Imm Gran Pct Auto 0.3 % (0.0-0.4); Lymphocytes Absolute Auto 2.1 X10*3/uL (1.2-4.9); Lymphocytes Percent Auto 27.1 % (20-40); Mean Corpuscular HGB Conc 32.9 g/dl (31.0-35.0); Mean Corpuscular Hemoglobin 30.6 pg (27.0-33.0); Mean Corpuscular Volume 92.8 fL (80.0-98.0); Mean Platelet Volume 9.6 fL (9.4-12.3); Monocytes Absolute Auto 0.5 X10*3/uL (0.1-1.2); Monocytes Percent Auto 6.6 % (2-11); Neutrophils Absolute Auto 4.9 x10*3/uL (2.0-8.3); Neutrophils Percent Auto 64.8 % (45-73); Platelet Count 221 X10*3/uL (160-400); Red Blood Count 4.61 X10*6/uL (4.20-5.50); Red Cell Distribution Width 13.5 % (11.0-16.0); White Blood Count 7.6 X10*3/uL (4.8-10.8)
[2022-10-13 19:51] LABS: INTERNATIONAL NORM RATIO 0.9 (0.9-1.1); Prothrombin Time 10.8 SEC (10.0-13.1)
[2022-10-13 19:54] LABS: Partial Thromboplastin Time 32.1 SEC (26.0-36.4)
[2022-10-13 19:57] VITALS: BP 160/94; PULSE 93; RESP 18; O2SAT 96
[2022-10-13 20:02] LABS: COVID-19 Test Negative (Negative); IDNOW Serial# BCCEAD1C
[2022-10-13 20:03] LABS: IDNOW Serial# 9DB6401D; Influenza A Negative (Negative); Influenza B2 Negative (Negative)
--- NOTE | 2022-10-13 20:08 | PC.NURSE ---
pt vitals stable, labs drawn, IV inserted. fluids running per order. pt alert to place but unsure of specific time. urine obtained and sent to lab
[2022-10-13 20:09] LABS: Alanine Aminotransferase 13 U/L (0-31); Albumin Level 3.7 g/dL (3.5-5.0); Alkaline Phosphatase 91 U/L (39-117); Anion Gap 14 (12-20); Aspartate Amino Transferase 17 U/L (5-31); B Type Natriuretic Peptide 66 pg/mL (<100); Blood Urea Nitrogen 21 mg/dL (9-16); Calcium 9.1 mg/dL (8.4-10.2); Carbon Dioxide 24 mmol/L (22-29); Chloride 107 mmol/L (96-108); Creatinine Clr Calc Pharmacy 59.9; Estimated Glomerular Filt Rate > 60; Glucose Random 91 mg/dL (60-115); Potassium 4.1 mmol/L (3.3-5.1); Sodium 141 mmol/L (135-145); Total Protein 6.3 g/dL (6.5-8.0)
[2022-10-13 20:13] LABS: Troponin-I High Sensitivity 12.6 ng/L (<3.5-17.0)
[2022-10-13 20:16] LABS: Appearance Urine Clear; Color Urine Yellow; Glucose Urine UA Negative (Negative); Leukocyte Esterase Urine Moderate (2+) (Negative); Nitrite Urine Negative (Negative); UMIC TRIGGER UACC YES; Urine Blood Small (1+) (Negative); Urine Ketones 15 mg/dL (Negative); Urine Protein Negative (Neg-Trace)
[2022-10-13 20:28] LABS: RBC Urine 0-2 /HPF (0-2)
[2022-10-13 20:29] LABS: Bacteria Urine 2+ (None Seen); Hyaline Casts Urine 0-2 /LPF (0-2); Squamous Epithelial Cell Urine 0-2 /HPF (0-2); UACC Culture Trigger YES
--- NOTE | 2022-10-13 22:54 | PC.NURSE ---
Per Dr. Bojorquez no Blood culture/lactic acid need to be drawn.
[2022-10-13] MEDS: cefTRIAXone sodium 1 GM in 0.9 % Sodium Chloride 50 ML IV (22:58)
[2022-10-14 01:11] LABS: Troponin-I High Sensitivity 16.1 ng/L (<3.5-17.0)
[2022-10-14 01:13] VITALS: BP 154/93; PULSE 96; RESP 17; TEMP 36.5; O2SAT 94
--- NOTE | 2022-10-14 03:48 | PC.NURSE ---
Patient is alert to self and person. Patient is forgetful, confused at time. Patient had 2 episodes of urinary incontinence , pericare provided. Purewick applied. Paitent medicated per SEP. VSS. Patient denies any pain.
--- NOTE | 2022-10-14 06:17 | PC.NURSE ---
This RN spoke to Dayne, patient's nephew who reported patient is weak, unsteady on her feet. Dayne requesting evaluation by PT/CM for possible placement for short term rehab placement. Dr. Soria notified.
[2022-10-14 06:32] VITALS: BP 141/80; PULSE 105; RESP 17; TEMP 36.7; O2SAT 96
[2022-10-14 07:18] VITALS: BP 141/80; PULSE 105; O2SAT 96
[2022-10-14 08:00] VITALS: BP 138/87; PULSE 98; RESP 16; TEMP 36.6; O2SAT 94
--- NOTE | 2022-10-14 08:27 | PHA.MEDREC ---
Pharmacy Consult ? Medication Reconciliation Pharmacy has completed the medication reconciliation. Spoke to nephew. Patient stopped tamoxifen and warfarin a few years ago and is only on supplements [place]
--- NOTE | 2022-10-14 09:06 | MHC.EDTECH ---
Patient was washed up with warm Ready Bath wipes, Issa changed, commode cleaned. Another tech brought a recliner to the room, I put a sheet on it, and got a warm blanket for the patient. I helped her into the recliner, and put her table in front of her with her juice and the rest of her breakfast. Once she was settled in the recliner, I changed the bedding, I finished with picking up her room.
--- NOTE | 2022-10-14 09:29 | PC.NURSE ---
Patient resting comfortably no distress noted, sitting u in chair asking for phone book advised patient none available. Will CTM
[2022-10-14] MEDS: Ferrous Sulfate 324 MG TABLET.DR PO (09:36)
[2022-10-14] MEDS: Cholecalciferol (Vitamin D3) 25 MCG TABLET PO (09:36)
--- NOTE | 2022-10-14 10:37 | PC.NURSE ---
Patient ambulatory with steady independnet gait will CTM
--- NOTE | 2022-10-14 10:49 | MHC.CM.ED ---
Received case management consult overnight. Patient came to the ER d/t AMS. Patient found to have an UTI. Physical therapy eval completed. Short term rehab is recommended. Attempted to meet with patient in regards to discharge planning. Nursing care currently being provided. Spoke with patient's nephew/HCP, Gerardo via telephone at [phone]. Patient has been to [facility] in the past. Gerardo requested referral to [facility]. Referral sent. [facility] is not able to offer a bed at this time. Patient has not received any Covid vaccines at this time. Referral broadcasted in [employer]. All facility choices provided to Gerardo. [facility] is patient's 1st choice. Transportation booked for 1130am. [facility] with chart. Patient, Javy Carrillo RN and Ceci HILL aware. Continue to monitor for d/c needs.
[2022-10-14 10:54] VITALS: BP 145/85; PULSE 95; RESP 18; TEMP 36.7; O2SAT 96
--- NOTE | 2022-10-14 11:59 | PC.NURSE ---
Report to EMS iv removed catheter tip intact will prepare for transfer
== END 2022-10-14 12:16 | disposition skilled nursing facility (03) ==
PROVIDERS: Emergency Provider Emergency Medicine Emergency Medical Services; PCP Internal Medicine
DX: N39.0 Urinary tract infection, site not specified (principal); B96.4 Proteus (mirabilis) (morganii) as the cause of diseases classified elsewhere; E86.0 Dehydration; R26.81 Unsteadiness on feet; Z91.81 History of falling; I10 Essential (primary) hypertension; E78.00 Pure hypercholesterolemia, unspecified; Z86.711 Personal history of pulmonary embolism; Z79.02 Long term (current) use of antithrombotics/antiplatelets; Z79.899 Other long term (current) drug therapy; Z79.01 Long term (current) use of anticoagulants; Z20.822 Contact with and (suspected) exposure to COVID-19
CPT/HCPCS: 36415; 70450; 71045; 72125; 80053; 81001; 82550; 83880; 84484; 85025; 85610; 85730; 87086; 87088; 87186; 87502; 87635; 93005; 96361; 96365; 97162; 99285; J0696

== ENCOUNTER 2022-10-14 14:26 | Emergency (ER) | payer MEDICARE, SELFPAY ==
[2022-10-14] VITALS (7 sets, daily range): BP systolic 119–148; BP diastolic 53–92; PULSE 85–103; RESP 15–20; TEMP 36.7–37.2; O2SAT 92–97; BMI 26.6
--- NOTE | 2022-10-14 16:39 | ED_ITS ---
HPI - Altered Mental Status General Chief Complaint: Altered Mental Status <LIZ Mcclain - Last Filed: 10/14/22 18:01> Stated Complaint: Poss AMS, eval per EMS <LIZ Mcclain - Last Filed: 10/14/22 18:01> Time Seen by Provider: 10/14/22 15:44 <LIZ Mcclain - Last Filed: 10/14/22 18:01> Source: patient, family and EMS <LIZ Mcclain - Last Filed: 10/14/22 18:01> Mode of arrival: EMS <LIZ Mcclain Last Filed: 10/14/22 18:01> History of Present Illness HPI narrative: 82-year-old female with a past medical history of breast CA, PE, HLD, HTN, peripheral neuropathy, discharged from our facility this morning with +UTI to [facility] from SNF as patient would not sign admission paperwork and was confused on arrival. Patient denies complaints at present. Denies CP/SOB, abdominal pain, nausea/vomiting. History limited due to patients acute confusion <LIZ Mcclain - Last Filed: 10/14/22 18:01> MD complaint: confusion <LIZ Mcclain - Last Filed: 10/14/22 18:01> Onset (ago): day(s) <LIZ Mcclain - Last Filed: 10/14/22 18:01> Related Data Home Medications: Home Medications Medication Instructions Recorded Confirmed ferrous sulfate 325 mg (65 mg 325 mg PO DAILY 07/16/20 10/15/22 iron) tablet Previous Rx's Medication Instructions Recorded cholecalciferol (vitamin D3) 25 25 mcg PO DAILY #30 tabs 11/27/20 mcg (1,000 unit) tablet (Vitamin D3) cefuroxime axetil 250 mg tablet 250 mg PO BID 5 days #10 tabs 10/14/22 <LIZ Mcclain Last Filed: 10/14/22 18:01> Allergies/Adverse Reactions: Allergies Allergy/AdvReac Type Severity Reaction Status Date / Time N.K.D.A. Allergy Unknown N/A Uncoded 05/12/20 09:07 <LIZ Mcclain Last Filed: 10/14/22 18:01> Review of Systems Review of Systems: ROS limited due to patient's acute mental status <LIZ Mcclain - Last Filed: 10/14/22 18:01> Yes all other systems are reviewed and are negative <LIZ Mcclain - Last Filed: 10/14/22 18:01> Constitutional: Constitutional: Reports as per HPI <LIZ Mcclain - Last Filed: 10/14/22 18:01> [facility] Past Medical History Attestation statement: The following information was validated with the patient. 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 <LIZ Mcclain - Last Filed: 10/14/22 18:01> Surgical History: Surgical History History of left total mastectomy <LIZ Mcclain - Last Filed: 10/14/22 18:01> Family History Family History: Family History Brother History of stomach cancer History of liver cancer <LIZ Mcclain - Last Filed: 10/14/22 18:01> Social History Social History: Social History Advance Directives Date on File: 10/22/20 <LIZ Mcclain - Last Filed: 10/14/22 18:01> Physical Exam ED Vital Signs: Vital Signs - 24 hr 10/16/22 13:05 10/16/22 22:00 10/17/22 07:36 Temperature 98.5 F 97.6 F 97.6 F Pulse Rate 98 82 87 Respiratory Rate 18 16 18 Blood Pressure 109/88 105/47 L 128/74 Pulse Oximetry 96 95 96 Oxygen Delivery Method Room Air Room Air Room Air BMI result Body Mass Index 26.6 <LIZ Mcclain - Last Filed: 10/14/22 18:01> Vital Signs - 24 hr 10/16/22 13:05 10/16/22 22:00 10/17/22 07:36 Temperature 98.5 F 97.6 F 97.6 F Pulse Rate 98 82 87 Respiratory Rate 18 16 18 Blood Pressure 109/88 105/47 L 128/74 Pulse Oximetry 96 95 96 Oxygen Delivery Method Room Air Room Air Room Air BMI result Body Mass Index 26.6 <Germania Gillette NP - Last Filed: 10/15/22 16:31> Vital Signs - 24 hr 10/16/22 13:05 10/16/22 22:00 10/17/22 07:36 Temperature 98.5 F 97.6 F 97.6 F Pulse Rate 98 82 87 Respiratory Rate 18 16 18 Blood Pressure 109/88 105/47 L 128/74 Pulse Oximetry 96 95 96 Oxygen Delivery Method Room Air Room Air Room Air BMI result Body Mass Index 26.6 <Del Knutson MD - Last Filed: 10/16/22 08:09> Vital Signs - 24 hr 10/16/22 13:05 10/16/22 22:00 10/17/22 07:36 Temperature 98.5 F 97.6 F 97.6 F Pulse Rate 98 82 87 Respiratory Rate 18 16 18 Blood Pressure 109/88 105/47 L 128/74 Pulse Oximetry 96 95 96 Oxygen Delivery Method Room Air Room Air Room Air BMI result Body Mass Index 26.6 <Nnamdi Stanton MD - Last Filed: 10/21/22 10:51> Const General: cooperative, healthy appearing and no acute distress <LIZ Mcclain - Last Filed: 10/14/22 18:01> Orientation/consciousness: oriented to person and oriented to place <LIZ Mcclain - Last Filed: 10/14/22 18:01> Limitations: no limitations <LIZ Mcclain Last Filed: 10/14/22 18:01> HENMT Head: Yes normal to inspection and Yes atraumatic <LIZ Mcclain - Last Filed: 10/14/22 18:01> Ears: hearing grossly normal bilaterally <LIZ Mcclain Last Filed: 10/14/22 18:01> General nose exam: Normal external nose present <LIZ Mcclain - Last Filed: 10/14/22 18:01> Face and sinus: Yes normal facial exam <Ceci Gary PA - Last Filed: 10/14/22 18:01> Eyes General: appearance normal, both eyes and all related structures <Ceci Gary PA - Last Filed: 10/14/22 18:01> EOM: EOMs intact bilaterally <Ceci Gary PA - Last Filed: 10/14/22 18:01> Neck Neck: Yes normal visual inspection and Yes no meningeal signs <Ceci Gary PA - Last Filed: 10/14/22 18:01> Resp Effort & Inspection: normal respiratory effort and no respiratory distress <Ceci Gary PA - Last Filed: 10/14/22 18:01> Auscultation: clear to auscultation bilaterally <Ceci Gary PA - Last Filed: 10/14/22 18:01> Cardio Rate: regular rate <Ceci Gary PA - Last Filed: 10/14/22 18:01> Heart sounds: S1 normal heart sound present and S2 normal heart sound present <Ceci Gary PA - Last Filed: 10/14/22 18:01> GI Inspection: Yes normal to inspection <Ceci Gary PA - Last Filed: 10/14/22 18:01> Palpation (GI): Soft to palpation, nontender, no guarding and not rigid <Ceci Gary PA - Last Filed: 10/14/22 18:01> Skin Rashes: no rashes <Ceci Gary PA - Last Filed: 10/14/22 18:01> Wounds: no wounds <Ceci Gary PA - Last Filed: 10/14/22 18:01> Neuro General: oriented to person, oriented to place, tone normal and no meningeal signs <Ceci Gary PA - Last Filed: 10/14/22 18:01> Gait exam (Neuro): Normal gait present <LIZ Mcclain - Last Filed: 10/14/22 18:01> Extrem General: Yes normal to inspection <LIZ Mcclain - Last Filed: 10/14/22 18:01> Course Course Course Narrative: -case discussed with hospitalist & they do not believe patient needs inpatient level of care -discussed with case management > need to determine if patient has capacity or if we can invoke healthcare proxy >> Psychiatry consult placed for capacity. Physician observation initiated. -1800--ED care transferred to LIZ Cardenas pending capacity determination/case management <LIZ Mcclain - Last Filed: 10/14/22 18:01> Reevaluation(s) Reevaluation #1: Patient has a UTI from her previous visit and is currently on Ceftin. This was continued. Psych call saw the patient today and she does not have capacity to make her own medical decisions. They recommended invoking the healthcare proxy. Patient is currently pending case management involvement for placed. No complaints from nursing overnight. Vital signs reviewed and stable. Will continue physician observation pending disposition <Germania Gillette NP - Last Filed: 10/15/22 16:31> Reevaluation #2: October: Pt is case management case at this point,she has no complaints,Psych eval establish that she can not make decision on her own she has UTI on treatment she is afebrile.[facility] is the final goal. <Del Knutson MD - Last Filed: 10/16/22 08:09> Time: 08:07 <Del Knutson MD - Last Filed: 10/16/22 08:09> Reevaluation #3: Assumed care at this time.... patient pendng case management for group home placement. <Nnamdi Stanton MD - Last Filed: 10/21/22 10:51> Time: 07:18 <Nnamdi Stanton MD - Last Filed: 10/21/22 10:51> Additional Reevaluation(s): Nephew would like to take patient home, d/c with home services, case managment getting to assist at this time. <Nnamdi Stanton MD - Last Filed: 10/21/22 10:51> Medications Administered Discontinued Medications Generic Name Dose Route Start Last Admin Trade Name Freq PRN Reason Stop Dose Admin Cefuroxime Axetil 250 mg 10/15/22 13:00 10/17/22 08:13 Cefuroxime Axetil 250 Mg Tablet PO 10/21/22 21:01 250 mg BID WILBERT Administration Ferrous Sulfate 324 mg 10/16/22 09:00 10/17/22 08:13 Ferrous Sulfate 324 Mg Tablet. PO 324 mg DAILY WILBERT Administration Vitamin D 25 mcg 10/16/22 09:00 10/17/22 08:13 Cholecalciferol (Vitamin D3) 25 Mcg Tablet PO 25 mcg DAILY WILBERT Administration <LIZ Mcclain - Last Filed: 10/14/22 18:01> Medications Administered Discontinued Medications Generic Name Dose Route Start Last Admin Trade Name Freq PRN Reason Stop Dose Admin Cefuroxime Axetil 250 mg 10/15/22 13:00 10/17/22 08:13 Cefuroxime Axetil 250 Mg Tablet PO 10/21/22 21:01 250 mg BID WILBERT Administration Ferrous Sulfate 324 mg 10/16/22 09:00 10/17/22 08:13 Ferrous Sulfate 324 Mg Tablet. PO 324 mg DAILY WILBERT Administration Vitamin D 25 mcg 10/16/22 09:00 10/17/22 08:13 Cholecalciferol (Vitamin D3) 25 Mcg Tablet PO 25 mcg DAILY WILBERT Administration <Germania Gillette NP - Last Filed: 10/15/22 16:31> Medications Administered Discontinued Medications Generic Name Dose Route Start Last Admin Trade Name Freq PRN Reason Stop Dose Admin Cefuroxime Axetil 250 mg 10/15/22 13:00 10/17/22 08:13 Cefuroxime Axetil 250 Mg Tablet PO 10/21/22 21:01 250 mg BID WILBERT Administration Ferrous Sulfate 324 mg 10/16/22 09:00 10/17/22 08:13 Ferrous Sulfate 324 Mg Tablet. PO 324 mg DAILY WILBERT Administration Vitamin D 25 mcg 10/16/22 09:00 10/17/22 08:13 Cholecalciferol (Vitamin D3) 25 Mcg Tablet PO 25 mcg DAILY WILBERT Administration <Del Knutson MD - Last Filed: 10/16/22 08:09> Medications Administered Discontinued Medications Generic Name Dose Route Start Last Admin Trade Name Freq PRN Reason Stop Dose Admin Cefuroxime Axetil 250 mg 10/15/22 13:00 10/17/22 08:13 Cefuroxime Axetil 250 Mg Tablet PO 10/21/22 21:01 250 mg BID WILBERT Administration Ferrous Sulfate 324 mg 10/16/22 09:00 10/17/22 08:13 Ferrous Sulfate 324 Mg Tablet. PO 324 mg DAILY WILBERT Administration Vitamin D 25 mcg 10/16/22 09:00 10/17/22 08:13 Cholecalciferol (Vitamin D3) 25 Mcg Tablet PO 25 mcg DAILY WILBERT Administration <Nnamdi Stanton MD - Last Filed: 10/21/22 10:51> Medical Decision Making Medical Decision Making [facility] Narrative: 82-year-old female with a past medical history of breast CA, PE, HLD, HTN, peripheral neuropathy, discharged from our facility this morning with +UTI to [facility] from SNF as patient would not sign admission paperwork and was confused on arrival. On exam vital signs stable, NAD, A&O x2, pleasantly confused, concern for encephalopathy secondary to recently UTI. Patient was full workup performed in the ED last night. Patient has healthcare proxy howev er this is not invoked at this time Plan: Psyhchiatry consult for capacity, admit vs CM Please refer to course for remaining clinical decision making, interpretation of labs/imaging results, and discussions with consultants and/or family members. <LIZ Mcclain - Last Filed: 10/14/22 18:01> Differential Diagnosis Differential Diagnoses: The differential diagnosis associated with the presentation includes <LIZ Mcclain - Last Filed: 10/14/22 18:01> As above <LIZ Mcclain - Last Filed: 10/14/22 18:01> Admission/Observation Consideration of admission/observation: Escalation of care including admission/observation considered <LIZ Mcclain - Last Filed: 10/14/22 18:01> Lab Data [facility] Lab Attestation statement: I reviewed the patient's lab results. <LIZ Mcclain - Last Filed: 10/14/22 18:01> Labs: Lab Results 10/16/22 10/16/22 Range/Units 06:27 17:23 Urine Color Yellow Urine Appearance Clear Urine pH 5.0 (5.0-9.0) Ur Specific [place] 1.025 (1.005-1.025) Urine Protein Negative (Neg-Trace) mg/dL Urine Glucose (UA) Negative (Negative) mg/dL Urine Ketones Negative (Negative) mg/dL Urine Blood Negative (Negative) Urine Nitrite Negative (Negative) Ur Leukocyte Esterase Small (1+) H (Negative) Urine RBC 0-2 (0-2) /HPF Urine WBC 6-10 H (0-5) /HPF Ur Squamous Epith Cells 3-5 (0-2) /HPF Urine Bacteria None Seen (None Seen) Hyaline Casts 0-2 (0-2) /LPF COVID-19 (NATHALIE) Negative (Negative) COVID-19 Clin Com See Note <LIZ Mcclain - Last Filed: 10/14/22 18:01> Lab Results 10/16/22 10/16/22 Range/Units 06:27 17:23 Urine Color Yellow Urine Appearance Clear Urine pH 5.0 (5.0-9.0) Ur Specific [place] 1.025 (1.005-1.025) Urine Protein Negative (Neg-Trace) mg/dL Urine Glucose (UA) Negative (Negative) mg/dL Urine Ketones Negative (Negative) mg/dL Urine Blood Negative (Negative) Urine Nitrite Negative (Negative) Ur Leukocyte Esterase Small (1+) H (Negative) Urine RBC 0-2 (0-2) /HPF Urine WBC 6-10 H (0-5) /HPF Ur Squamous Epith Cells 3-5 (0-2) /HPF Urine Bacteria None Seen (None Seen) Hyaline Casts 0-2 (0-2) /LPF COVID-19 (NATHALIE) Negative (Negative) COVID-19 Clin Com See Note <Germania Gillette NP - Last Filed: 10/15/22 16:31> Lab Results 10/16/22 10/16/22 Range/Units 06:27 17:23 Urine Color Yellow Urine Appearance Clear Urine pH 5.0 (5.0-9.0) Ur Specific [place] 1.025 (1.005-1.025) Urine Protein Negative (Neg-Trace) mg/dL Urine Glucose (UA) Negative (Negative) mg/dL Urine Ketones Negative (Negative) mg/dL Urine Blood Negative (Negative) Urine Nitrite Negative (Negative) Ur Leukocyte Esterase Small (1+) H (Negative) Urine RBC 0-2 (0-2) /HPF Urine WBC 6-10 H (0-5) /HPF Ur Squamous Epith Cells 3-5 (0-2) /HPF Urine Bacteria None Seen (None Seen) Hyaline Casts 0-2 (0-2) /LPF COVID-19 (NATHALIE) Negative (Negative) COVID-19 Clin Com See Note <Del Knutson MD - Last Filed: 10/16/22 08:09> Lab Results 10/16/22 10/16/22 Range/Units 06:27 17:23 Urine Color Yellow Urine Appearance Clear Urine pH 5.0 (5.0-9.0) Ur Specific [place] 1.025 (1.005-1.025) Urine Protein Negative (Neg-Trace) mg/dL Urine Glucose (UA) Negative (Negative) mg/dL Urine Ketones Negative (Negative) mg/dL Urine Blood Negative (Negative) Urine Nitrite Negative (Negative) Ur Leukocyte Esterase Small (1+) H (Negative) Urine RBC 0-2 (0-2) /HPF Urine WBC 6-10 H (0-5) /HPF Ur Squamous Epith Cells 3-5 (0-2) /HPF Urine Bacteria None Seen (None Seen) Hyaline Casts 0-2 (0-2) /LPF COVID-19 (NATHALIE) Negative (Negative) COVID-19 Clin Com See Note <Nnamdi Stanton MD - Last Filed: 10/21/22 10:51> Radiology Impression Discussion of test interpretation with radiology: I have reviewed the radiologist's reading. <LIZ Mcclain - Last Filed: 10/14/22 18:01> External Record Review External record reviewed: Inpatient record, Office record, Outpatient record, Prior outpatient labs, Prior outpatient radiology, Primary care record and Outside ED record <LIZ Mcclain - Last Filed: 10/14/22 18:01> Attestation Attending Attestation: I reviewed ENGINEERING ILLUSTRATOR/PA/Resident note, assessment and plan. I agree with the documentation, assessment and plan unless otherwise stated. <Nnamdi Stanton MD - Last Filed: 10/21/22 10:51> Discharge Plan Discharge Clinical Impression: Encephalopathy, Acute UTI <LIZ Mcclain - Last Filed: 10/14/22 18:01> Patient Disposition: Home, Self-Care <LIZ Mcclain - Last Filed: 10/14/22 18:01> Instructions: Encephalopathy (DC), Urinary Tract Infection in Older Adults (ED) <LIZ Mcclain - Last Filed: 10/14/22 18:01> Additional Instructions: Continue Ceftin until completed <LIZ Mcclain - Last Filed: 10/14/22 18:01> Prescriptions: No Action cholecalciferol (vitamin D3) [Vitamin D3] 25 mcg (1,000 unit) Tablet 25 mcg PO DAILY Qty: 30 4RF cefuroxime axetil 250 mg tablet 250 mg PO BID 5 Days Qty: 10 0RF ferrous sulfate 325 mg (65 mg iron) tablet 325 mg PO DAILY <LIZ Mcclain - Last Filed: 10/14/22 18:01> Referrals: Woody Joseph MD [Primary Care Provider] - 2 days <LIZ Mcclain - Last Filed: 10/14/22 18:01> Interventions: ED Discharge Assessment Last Done: 10/17/22 12:23 <LIZ Mcclain - Last Filed: 10/14/22 18:01> Discharge Date/Time: 10/17/22 12:23 <LIZ Mcclain - Last Filed: 10/14/22 18:01>
--- NOTE | 2022-10-14 19:25 | MHC.CM.ED ---
Addendum entered by Macy Person 10/14/22 19:41: Dayne tells CM that he is in the process of completing the MH application with Padmini Dimas in our Financial Services Department. Also tells CM that his aunt is a retired RN. 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 Original Note: CM met with patient at request of Ceci HILL. Pt was discharged from [facility] at 11:30am today for STR at [facility]. When she arrived, she was confused, thought she was going to rehab, not [facility] and refused admission. Pt was returned to [facility]. Pt lives alone, has help from nephew/HCP Dayne Carty ([phone]). Uses a cane and has a life alert. She has MOW, but no other core maker helper. Her family helps her.Pt is confused, has trouble with finding words, thinks her father is helping her with laundry, then tells CM that he recently. Pt is 82 years old. Pt reports falling yesterday, but doesn't remember having UTI. Feels confused. Not sure why she left usp, but thought they were keeping her there and said it didn't feel right . Pt is very pleasant. Pt agrees she needs physical therapy and is agreeable. Pt is unvaccinated. Ceci HILL ordered psych consult for capacity. If found to not have capacity to make medical decisions at this time due to UTI, then will need MD to invoke the HCP. CM spoke with Dayne Carty. Per Dayne, he provides care for his aunt and anything she needs. States patient often gets UTI, and then has confusion. States he was calling Dr. Otoniel Joseph today for prescription, but then his aunt took a fall. Dayne met with his aunt when she returned from facility, and said that she got confused, as she thought she was going to rehab, and then ended up at facility where she placed her father years ago. He thinks that's what set her off and why she refused to stay. Dayne has spoken with his aunt to assure her that she will only stay for STR. CM suggested that Dayne meet his aunt at facility to help with transition. Explained that psych will see patient to determine capacity to make medical decisions. If she has capacity, then she can sign all paper work. If she doesn't have capacity, then he will make medical decisions for her. He is agreeable to both psych consult and to meet his aunt at facility at discharge to help with any confusion. Will refer to [facility] first, if they do not offer a bed, then will refer locally. Dayne would like facility in [place] if possible. CM will follow for discharge planning.
--- NOTE | 2022-10-14 19:32 | PC.NURSE ---
Addendum entered by Agnes Espinal 10/15/22 02:36: boosted* Original Note: assumed care of patient pt aox1 no apparent distress pt clean and dry repositioned and bosted
[2022-10-15 00:14] VITALS: BP 128/76; PULSE 83; RESP 16; O2SAT 98
--- NOTE | 2022-10-15 02:34 | PC.NURSE ---
pt aox1 no apparent distress pt sleeping
--- NOTE | 2022-10-15 03:20 | PC.NURSE ---
Pt found wandering hallways, unsure of where she is going. Pt was not easily redirectable, threatening to fight staff. Pt was brought back to bed and both side rails were raised. Pt is still resisting and attempting to get out of bed.
[2022-10-15 04:30] VITALS: BP 122/71; PULSE 104; RESP 15; O2SAT 96
[2022-10-15 06:33] VITALS: RESP 16
--- NOTE | 2022-10-15 13:49 | MHC.CM.PN ---
CASE MANAGEMENT INFORMED THAT FAMILY WAS AT BEDSIDE UPON REVIEW OF CHART, CURRENTLY AWAITING PSYCHIATRIC EVALUATION NO BED OFFER FROM [facility] OF THIS NOTE
--- NOTE | 2022-10-15 15:45 | P.CNPS_ITS ---
History of Present Illness Date of Service: 10/15/2022 Chief Complaint: Poss AMS, eval per EMS Reason for Consult: capacity/competency Requesting physician: Ceci Gary Discussed with referring provider: Yes Sources of Information: patient interviewed and chart reviewed Additional Sources of Information: nephew who is pts support and health care proxy HPI Narrative: 82-year-old female with a past medical history of breast CA, PE, HLD, HTN, peripheral neuropathy, discharged from our facility this morning with +UTI to [facility] from SNF as patient would not sign admission paperwork and was confused on arrival.? Patient denies complaints at present.? Denies CP/SOB, abdominal pain, nausea/vomiting. 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 Surgical History History of left total mastectomy Family History: never Social History: nephew and family supportive Substance History: none Trauma History: none known Diagnostics Vital Signs (24Hr): Vital Signs - 24 hr 10/14/22 16:31 10/14/22 17:37 10/14/22 18:35 Temperature 98.9 F 98.1 F Pulse Rate 88 99 88 Respiratory Rate 16 16 20 Blood Pressure 148/87 H 124/92 H 133/92 H Pulse Oximetry 96 96 95 Oxygen Delivery Method Room Air Room Air Room Air 10/14/22 20:00 10/14/22 23:34 10/15/22 00:14 Temperature 98.0 F 98.0 F Pulse Rate 96 85 83 Respiratory Rate 16 16 16 Blood Pressure 136/69 119/53 L 128/76 Pulse Oximetry 94 97 98 Oxygen Delivery Method Room Air Room Air Room Air 10/15/22 04:30 10/15/22 06:33 Temperature Pulse Rate 104 H Respiratory Rate 15 16 Blood Pressure 122/71 Pulse Oximetry 96 Oxygen Delivery Method Room Air BMI result Body Mass Index 26.6 Mental Status Exam Mental Status Exam Patient Appearance: Appropriate Patient Orientation: Person, Time (september but not date and year; states in hospitla in [place] ) and Situation Level of Consciousness: Awake Patient Behavior: Appropriate, Cooperative and Anxious Mood Description: Appropriate and Anxious Affect Description: Happy Patient Cognition Impaired: Yes Ability to Follow Directions: Fair (needed repetiton) Speech Pattern: Clear Memory Description: Episodic Impaired, Recent Impaired and Working Impaired (recall of 2 words out of 3 in 5 min) Hallucinations: None Delusions: Not Present Thought Process: Slowed Thinking (difficulty with recall and word finding) Thought Content: positive for Intact Judgement: Fair Judgement and Insight: aware her memory and cognition are impaired Medications Medications Current Medications Cefuroxime Axetil (Cefuroxime Axetil 250 Mg Tablet) 250 mg PO BID WILBERT Stop: 10/21/22 21:01 Last Admin: 10/15/22 13:30 Dose: 250 mg Allergies Allergies Allergy/AdvReac Type Severity Reaction Status Date / Time N.K.D.A. Allergy Unknown N/A Uncoded 05/12/20 09:07 Assessment & Plan Assessment & Plan (1) Encephalopathy: Status: Acute Code(s): G93.40 - Encephalopathy, unspecified (2) Acute UTI: Status: Acute Code(s): N39.0 - Urinary tract infection, site not specified Plan A & P At this time pt not competent to make decisions regarding her care due to memory and cogntive defecits. Her thinking is slowed, she loses track of the question at hand, she is not fully oriented. This is likely temporary due to UTI delirium which can clear once she recovers. Total time managing care of this patient today ____ minutes. Patient educated on: diagnosis, therapeutic strategies and medical condition Informed Consent: further education needed
[2022-10-15 18:00] VITALS: BP 118/72; PULSE 77; RESP 16; O2SAT 96
[2022-10-15 19:59] VITALS: BP 130/76; PULSE 97; RESP 18; TEMP 36.5; O2SAT 96
--- NOTE | 2022-10-15 20:01 | MHC.EDTECH ---
This Tech assumed care of patient at 1900,patient is walking around and is steady on her feet. At this time this tech set patient up with dinner and is sitting in recliner and eating at this time.Call resendiz in reach
--- NOTE | 2022-10-15 20:58 | PC.NURSE ---
pt has been wandering out of her room and tries to go into another pt room, wanders to nurses station. pt is redirectable with resistance to return to her room. Pt thinks she is a worker in the ed. sitter present now at pt room
--- NOTE | 2022-10-15 21:15 | PC.NURSE ---
Pt alert and confused, sitting on a recliner and watching television. No apparent distress noted. Reports no pain at this time. Medication as ordered. Pt tolerated well. Will continue to monitor.
--- NOTE | 2022-10-16 00:03 | PC.NURSE ---
Pt sleeping on the recliner in no apparent distress. Breaths are even regular and unlabored with equal chest rises. Will continue to monitor.
[2022-10-16 03:50] VITALS: BP 91/70; PULSE 86; RESP 16; TEMP 36.4; O2SAT 97
--- NOTE | 2022-10-16 05:42 | PC.NURSE ---
Patient was moved to ED POD at 0300 temporarily due to patents wandering behavior, patient is currently in chair sleeping intermittently, calm and quiet, no distress observed/reported, patient is independent in ambulation, patient is still in her causal cloth, disposition is case management pending placement, will continue to monitor.
--- NOTE | 2022-10-16 06:27 | MHC.EDTECH ---
pt compliant with knife changer, successfully obtained covid swab. RN MADE AWARE.
[2022-10-16 06:48] LABS: COVID-19 Test Negative (Negative); IDNOW Serial# BCCEAD1C
[2022-10-16] MEDS: Ferrous Sulfate 324 MG TABLET.DR PO (08:25)
[2022-10-16] MEDS: Cholecalciferol (Vitamin D3) 25 MCG TABLET PO (08:25)
--- NOTE | 2022-10-16 11:24 | PC.NURSE ---
Pt has been awake all morning. Ate breakfast. Enc. to shower. Reports wanting to go home and take a nice warm shower. Pt called nephew. Nephew was very loud on the phone scolding Pt. Pt had told him she was being thrown out of the Hospital because she was here for 2 days. Pt hung up. She was clearly upset, and able to articulate her feelings. Pt entertained the issue of evicting her nephew and his family.
--- NOTE | 2022-10-16 12:24 | PC.NURSE ---
Spoke with MD regarding Pt wishes to D/C home, and concern Pt has with nephew. New orders obtained. Pt awaiting psyc consult due to previous consult during an acute UTI.
--- NOTE | 2022-10-16 12:34 | MHC.CM.ED ---
Patient remains in ER BH pod. Psych eval 10/15, felt patient did not have the capacity to make her own decisions. Sapna, RN feels patient is more alert and oriented at this time and is requesting to return home. Dr Knutson aware. T/W spoke with patient's nephew/HCP, mich Carrillo aware. Gerardo does not feel patient can safely return home at this time. Requesting repeat physical therapy eval and psych eval. Dr Knutson made aware. [facility] Continue to monitor for d/c needs.
[2022-10-16 13:05] VITALS: BP 109/88; PULSE 98; RESP 18; TEMP 36.9; O2SAT 96
[2022-10-16 17:37] LABS: Appearance Urine Clear; Color Urine Yellow; Glucose Urine UA Negative (Negative); Leukocyte Esterase Urine Small (1+) (Negative); Nitrite Urine Negative (Negative); Specific Gravity - Urine 1.025 (1.005-1.025); UMIC TRIGGER UACC YES; Urine Blood Negative (Negative); Urine Ketones Negative (Negative); Urine Protein Negative (Neg-Trace)
[2022-10-16 17:39] LABS: Bacteria Urine None Seen (None Seen); Hyaline Casts Urine 0-2 /LPF (0-2); RBC Urine 0-2 /HPF (0-2); UACC Culture Trigger YES
[2022-10-16 22:00] VITALS: BP 105/47; PULSE 82; RESP 16; TEMP 36.4; O2SAT 95
[2022-10-17 07:36] VITALS: BP 128/74; PULSE 87; RESP 18; TEMP 36.4; O2SAT 96
--- NOTE | 2022-10-17 08:04 | PC.NURSE ---
patient alert, confused. family at the bedside. ambulating around the unit with strong independent gait. will CTM
[2022-10-17] MEDS: Ferrous Sulfate 324 MG TABLET.DR PO (08:13)
[2022-10-17] MEDS: Cholecalciferol (Vitamin D3) 25 MCG TABLET PO (08:13)
--- NOTE | 2022-10-17 10:53 | MHC.CM.PN ---
Addendum entered by Sindhu Mello 10/17/22 15:16: CM MET WITH PT AND HER NEPHEW AT BEDSIDE PTS NEPHEW REPORTS THE PLAN WAS ONLY FOR TEMPORARY SNF PLACEMENT BECAUSE THE PT IS UNSTEADY HE REPORTS HIS MAJOR CONCERN IS THAT SHE GET PHYSICAL THERAPY HE REPORTS HE LIVES NEXT DOOR TO THE PT WITH HIS FAMILY AND THEY ARE WITH HER MOST OF THE TIME HE REPORTS HE DOES NOT WANT TO LEAVE HER IN THE ED ANY LONGER AND WOULD LIKE TO TAKE HER HOME HE CONFIRMS HE AND OTHER FAMILY MEMBERS WILL BE WITH HER AT HOME HE IS AWARE A [facility] REFERRAL MADE FOR SN AND PT HE TRANSPORTED PT HOME [facility] ACCEPTED THE REFERRAL Original Note: PT AWAITING PLACEMENT [facility] IS NOT ACCEPTING PT BACK REFERRAL UPDATED AND EXPANDED
== END 2022-10-17 12:23 | disposition home or self-care (01) ==
PROVIDERS: Emergency Medicine; Emergency Provider Emergency Medicine; PCP Internal Medicine
DX: R41.82 Altered mental status, unspecified (principal); N39.0 Urinary tract infection, site not specified; G93.40 Encephalopathy, unspecified; Z20.822 Contact with and (suspected) exposure to COVID-19; I10 Essential (primary) hypertension; E78.5 Hyperlipidemia, unspecified; Z86.711 Personal history of pulmonary embolism; Z79.01 Long term (current) use of anticoagulants; Z79.899 Other long term (current) drug therapy
CPT/HCPCS: 81001; 87086; 87635; 99285

== ENCOUNTER 2022-10-27 13:14 | Emergency (ER) | payer MEDICARE, SELFPAY ==
--- NOTE | ~2022-10-27 | XR_ITS ---
EXAMINATION: XR ELBOW, LEFT CLINICAL INFORMATION: Pain status post fall COMPARISON: June 25, 2019 TECHNIQUE: AP, lateral, and oblique views of the left elbow. FINDINGS: There is no evidence of acute fracture or dislocation of the left elbow. No left elbow effusion is seen. There is some soft tissue edema seen about the ulnar aspect soft tissues. XR/XR elbow LT min 3V IMPRESSION: No acute bony abnormality appreciated. No left elbow effusion.
[2022-10-27 13:28] VITALS: BP 127/64; BP 130/80; PULSE 103; PULSE 91; RESP 22; TEMP 37.3; O2SAT 91; O2SAT 97; BMI 24.7
--- NOTE | 2022-10-27 13:33 | PC.NURSE ---
PT arrived via EMS, C-collar in place. Pt denying neck pain, numbness/tingling at this time. She is a/ox3, EMS reporting cognition improvement post 500cc fluid bolus. She was found down in her driveway by a neighbor, unknown how she fell or how long she was down for. Denies any pain at this time.
--- NOTE | 2022-10-27 13:55 | ED.FALL ---
HPI - Fall General Chief Complaint: Fall Stated Complaint: FALL OUTSIDE,CONFUSED,DENIES PAIN PER EMS Time Seen by Provider: 10/27/22 13:23 Source: patient Mode of arrival: EMS Limitations: no limitations History of Present Illness HPI Narrative: 82-year-old female presents with a fall. Patient was outside where was hot. She felt slightly lightheaded and she collapsed. She did not lose consciousness. She did not hit her head. She denied any palpitations or chest pain. She currently feels otherwise well. She denies any injuries. She denies any neck pain, numbness, tingling or focal neurologic deficits. Patient also has recently had a significant urinary tract infection. His cause some confusion. She has some mild symptoms similar to her previous diagnosis. Patient is reportedly eating and drinking well. Patient denies any urinary frequency, urgency, dysuria she denies any back pain, pelvic pain. Related Data Home Medications Medication Instructions Recorded Confirmed ferrous sulfate 325 mg (65 mg 325 mg PO DAILY 07/16/20 10/27/22 iron) tablet cyanocobalamin (vitamin B-12) 1,000 mcg PO DAILY 10/27/22 10/27/22 1,000 mcg tablet Previous Rx's Medication Instructions Recorded cholecalciferol (vitamin D3) 25 25 mcg PO DAILY #30 tabs 11/27/20 mcg (1,000 unit) tablet (Vitamin D3) Allergies Allergy/AdvReac Type Severity Reaction Status Date / Time N.K.D.A. 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 Surgical History History of left total mastectomy Family History Family History Brother History of stomach cancer History of liver cancer Social History Social History Smoked in Last 30 Days: No Advance Directives: Yes Advance Directives on File: Yes Advance Directives Date on File: 10/22/20 Physical Exam Vital Signs: Vital Signs: Last Vital Signs Temp 98.0 F 10/27/22 20:31 Pulse 72 10/27/22 20:31 Resp 18 10/27/22 20:31 BP 131/93 H 10/27/22 20:31 Pulse Ox 98 10/27/22 20:31 O2 Del Method Room Air 10/27/22 20:31 BMI result Body Mass Index 24.7 GEN: Well developed, no acute distress, alert, oriented HEENT: Normocephalic, atraumatic, normal external ears, nose appears normal, no oropharyngeal edema or exudates Eyes: Normal to appearance Neck: Supple, no lymphadenopathy Respiratory: Talks in complete sentences, no respiratory distress, clear to auscultation bilaterally Cardiovascular: Regular rate and rhythm, no murmurs rubs or gallops Abdomen: Soft, nontender, nondistended, no guarding, no rebound Back: No CVA tenderness Extremities: No clubbing cyanosis or edema Neurologic: No focal neurologic deficits, cranial nerves 2-12 intact, strength is 5/5 bilaterally, gait normal Skin: No rash abrasion left elbow Course Course Course Narrative: 82-year-old female presents with a fall. Appears to be secondary to being outside in the hot climate. She currently is asymptomatic. She also has a recent urinary tract infection. There is concern that this could be an ongoing diagnosis. Her nephew which is her proxy has requested possible short-term rehabilitation for the patient in order to improve her ability to go home and function in a normal way. I examination is benign. Again she did fall she did not hit her head, she did not lose consciousness. She denies any neck pain. Examination revealed no midline tenderness, no step-off. Collar was removed. Given her collapse, I would like to make sure metabolically she is doing well. Would also like to get another urinalysis. Will get an EKG. She did hit her elbow, will get x-rays of her left elbow. Reevaluation(s) Reevaluation #1: patient pending case management and PT eval for short term rehab. Dr. Dodd to assume care at this time. Time: 22:16 Medical Decision Making Medical Decision Making MDM Narrative: 82-year-old female presents after a fall and collapse. Differential diagnosis could lightheadedness, anemia, electrolyte abnormality, urinary tract infection patient did not hit her head. She denies any neck pain. There is no indication for emergent imaging at this time. Would like to check an EKG, urinalysis, blood counts to rule out anemia, hyponatremia, hypokalemia as well as other possible diagnoses Differential Diagnosis Differential Diagnoses: The differential diagnosis associated with the presentation includes (Fall, lightheadedness, cardiac arrhythmia, anemia, electrolyte abnormality, UTI) Admission/Observation Consideration of admission/observation: Escalation of care including admission/observation considered Lab Data MDM Lab Attestation statement: I reviewed the patient's lab results. 10/27/22 15:11 10/27/22 15:11 Labs: Lab Results 10/27/22 10/27/22 10/27/22 Range/Units 14:32 15:03 15:11 WBC 9.2 (4.8-10.8) X10*3/uL RBC 4.61 (4.20-5.50) X10*6/uL Hgb 14.1 (12.0-16.0) g/dl Hct 43.3 (37.0-47.0) % MCV 93.9 (80.0-98.0) fL MCH 30.6 (27.0-33.0) pg MCHC 32.6 (31.0-35.0) g/dl RDW 13.6 (11.0-16.0) % Plt Count 221 (160-400) X10*3/uL MPV 9.8 (9.4-12.3) fL Immature Gran % (Auto) 0.4 (0.0-0.4) % Neut % (Auto) 71.0 (45-73) % Lymph % (Auto) 20.3 (20-40) % Polk % (Auto) 7.1 (2-11) % Eos % (Auto) 0.8 (0-4) % Baso % (Auto) 0.4 (0-2) % Lymph # (Auto) 1.9 (1.2-4.9) X10*3/uL Polk # (Auto) 0.7 (0.1-1.2) X10*3/uL Eos # (Auto) 0.1 (0.0-0.4) X10*3/uL Baso # (Auto) 0.0 (0.0-0.2) X10*3/uL Abs Immat Gran (auto) 0.04 H (0.00-0.03) X10*3/uL Absolute Neuts (auto) 6.5 (2.0-8.3) x10*3/uL Absolute Nucleated RBC 0.000 (0.0-0.012) X10*3/uL Nucleated RBC % (auto) 0.0 (0.0-0.2) /100WBC Sodium (135-145) mmol/L Potassium (3.3-5.1) mmol/L Chloride (96-108) mmol/L Carbon Dioxide (22-29) mmol/L Anion Gap (12-20) BUN (9-16) mg/dL Creatinine (0.5-1.4) mg/dL Estim Creat Clear Calc Estimated GFR Random Glucose (60-115) mg/dL Calcium (8.4-10.2) mg/dL Total Bilirubin (0.0-1.0) mg/dL AST (5-31) U/L ALT (0-31) U/L Alkaline Phosphatase (39-117) U/L Total Protein (6.5-8.0) g/dL Albumin (3.5-5.0) g/dL Urine Color Yellow Urine Appearance Clear Urine pH 7.5 (5.0-9.0) Ur Specific [place] 1.015 (1.005-1.025) Urine Protein Negative (Neg-Trace) mg/dL Urine Glucose (UA) Negative (Negative) mg/dL Urine Ketones Trace (Negative) mg/dL Urine Blood Negative (Negative) Urine Nitrite Negative (Negative) Ur Leukocyte Esterase Negative (Negative) COVID-19 (NATHALIE) Negative (Negative) COVID-19 Clin Com See Note 10/27/22 Range/Units 15:11 WBC (4.8-10.8) X10*3/uL RBC (4.20-5.50) X10*6/uL Hgb (12.0-16.0) g/dl Hct (37.0-47.0) % MCV (80.0-98.0) fL MCH (27.0-33.0) pg MCHC (31.0-35.0) g/dl RDW (11.0-16.0) % Plt Count (160-400) X10*3/uL MPV (9.4-12.3) fL Immature Gran % (Auto) (0.0-0.4) % Neut % (Auto) (45-73) % Lymph % (Auto) (20-40) % Polk % (Auto) (2-11) % Eos % (Auto) (0-4) % Baso % (Auto) (0-2) % Lymph # (Auto) (1.2-4.9) X10*3/uL [place]k # (Auto) (0.1-1.2) X10*3/uL Eos # (Auto) (0.0-0.4) X10*3/uL Baso # (Auto) (0.0-0.2) X10*3/uL Abs Immat Gran (auto) (0.00-0.03) X10*3/uL Absolute Neuts (auto) (2.0-8.3) x10*3/uL Absolute Nucleated RBC (0.0-0.012) X10*3/uL Nucleated RBC % (auto) (0.0-0.2) /100WBC Sodium 141 (135-145) mmol/L Potassium 4.7 (3.3-5.1) mmol/L Chloride 108 (96-108) mmol/L Carbon Dioxide 25 (22-29) mmol/L Anion Gap 13 (12-20) BUN 16 (9-16) mg/dL Creatinine 0.82 (0.5-1.4) mg/dL Estim Creat Clear Calc 49.0 Estimated GFR > 60 Random Glucose 92 (60-115) mg/dL Calcium 9.1 (8.4-10.2) mg/dL Total Bilirubin 0.9 (0.0-1.0) mg/dL AST 19 (5-31) U/L ALT 18 (0-31) U/L Alkaline Phosphatase 88 (39-117) U/L Total Protein 6.5 (6.5-8.0) g/dL Albumin 4.0 (3.5-5.0) g/dL Urine Color Urine Appearance Urine pH (5.0-9.0) Ur Specific [place] (1.005-1.025) Urine Protein (Neg-Trace) mg/dL Urine Glucose (UA) (Negative) mg/dL Urine Ketones (Negative) mg/dL Urine Blood (Negative) Urine Nitrite (Negative) Ur Leukocyte Esterase (Negative) COVID-19 (NATHALIE) (Negative) COVID-19 Clin Com Independent Interpretation I performed an independent interpretation of an: EKG (Normal sinus rhythm heart rate 86, LVH, no acute ST elevations or depressions) Independent Historian Clinical information obtained from an independent historian. History obtained from or confirmed by: Other (Nephew) Prescription Management I considered prescription management with: Antibiotic Chronic Conditions Patient?s care impacted by: Cancer Discharge Plan Discharge Clinical Impression: Fall Prescriptions: No Action cholecalciferol (vitamin D3) [Vitamin D3] 25 mcg (1,000 unit) Tablet 25 mcg PO DAILY Qty: 30 4RF cyanocobalamin (vitamin B-12) 1,000 mcg Tablet 1,000 mcg PO DAILY ferrous sulfate 325 mg (65 mg iron) tablet 325 mg PO DAILY
--- NOTE | 2022-10-27 14:14 | ECG_ITS ---
Test Reason : chest pain Blood Pressure : / mmHG Vent. Rate : 086 BPM Atrial Rate : 086 BPM P-R Int : 172 ms QRS Dur : 080 ms QT Int : 406 ms P-R-T Axes : 041 023 053 degrees QTc Int : 485 ms Normal sinus rhythm Minimal voltage criteria for LVH, may be normal variant ( Sokolow-Scott ) Borderline ECG When compared with ECG of 13-OCT-2022 19:09, No significant change was found Referred By: Nnamdi Stanton Electronically Signed By:CAROL FLORES MD
[2022-10-27 15:20] LABS: MANUAL DIFF FLAG NO
[2022-10-27 15:23] LABS: Basophils Percent Auto 0.4 % (0-2); Eosinophils Absolute Auto 0.1 X10*3/uL (0.0-0.4); Eosinophils Percent Auto 0.8 % (0-4); Hematocrit 43.3 % (37.0-47.0); Hemoglobin 14.1 g/dl (12.0-16.0); Imm Gran Abs Auto 0.04 X10*3/uL (0.00-0.03); Imm Gran Pct Auto 0.4 % (0.0-0.4); Lymphocytes Absolute Auto 1.9 X10*3/uL (1.2-4.9); Lymphocytes Percent Auto 20.3 % (20-40); Mean Corpuscular HGB Conc 32.6 g/dl (31.0-35.0); Mean Corpuscular Hemoglobin 30.6 pg (27.0-33.0); Mean Corpuscular Volume 93.9 fL (80.0-98.0); Mean Platelet Volume 9.8 fL (9.4-12.3); Monocytes Absolute Auto 0.7 X10*3/uL (0.1-1.2); Monocytes Percent Auto 7.1 % (2-11); Neutrophils Absolute Auto 6.5 x10*3/uL (2.0-8.3); Platelet Count 221 X10*3/uL (160-400); Red Blood Count 4.61 X10*6/uL (4.20-5.50); Red Cell Distribution Width 13.6 % (11.0-16.0); White Blood Count 9.2 X10*3/uL (4.8-10.8)
[2022-10-27 15:25] LABS: Appearance Urine Clear; Color Urine Yellow; Glucose Urine UA Negative (Negative); Leukocyte Esterase Urine Negative (Negative); Nitrite Urine Negative (Negative); PH 7.5 (5.0-9.0); Specific Gravity - Urine 1.015 (1.005-1.025); Urine Blood Negative (Negative); Urine Ketones Trace mg/dL (Negative); Urine Protein Negative (Neg-Trace)
[2022-10-27 15:40] LABS: Anion Gap 13 (12-20)
[2022-10-27 15:52] LABS: Alanine Aminotransferase 18 U/L (0-31); Alkaline Phosphatase 88 U/L (39-117); Aspartate Amino Transferase 19 U/L (5-31); Bilirubin Total 0.9 mg/dL (0.0-1.0); Blood Urea Nitrogen 16 mg/dL (9-16); Calcium 9.1 mg/dL (8.4-10.2); Carbon Dioxide 25 mmol/L (22-29); Chloride 108 mmol/L (96-108); Estimated Glomerular Filt Rate > 60; Glucose Random 92 mg/dL (60-115); Potassium 4.7 mmol/L (3.3-5.1); Sodium 141 mmol/L (135-145); Total Protein 6.5 g/dL (6.5-8.0)
--- NOTE | 2022-10-27 16:01 | PHA.MEDREC ---
Pharmacy Consult ? Medication Reconciliation Pharmacy has completed the medication reconciliation. Spoke with patient's nephew Dayne. Patient is only on OTC medications. Patient finished her course of cefuroxime. Rose Espinoza, JessikaD
[2022-10-27 19:00] LABS: COVID-19 Test Negative (Negative); IDNOW Serial# 08D9AD1C
--- NOTE | 2022-10-27 19:07 | MHC.CM.ED ---
Addendum entered by Macy Person 10/27/22 19:33: Covid screen negative. Original Note: CM met with patient at the request of Dr. Stanton. Pt had a fall outside. Was not using her walker. States she was using the fence. Pt lives alone. HCP on file. Nephew/HCP #2 Dayne cares for her daily. Lives ne[place]. Pt has [facility]. Was at [facility] from 10/14-10/17. Walker/glasses. Pt is unvaccinated, and will not get vaccine. Covid screen pending. Pt is agreeable to STR, but would rather have it at home. CM explained that patient had a fall twice this month and perhaps needs physical therapy now. Nephew requested that staff use the terms Physical Therapy at facility, not assisted, as his aunt is fearful of having to stay at a assisted. Dayne expects rehab to be short term, and then go home. Dayne requests [facility] as first choice. DARIUS explained that I am unsure if patient will qualify for Acute rehab. Explained it is up to the facility. Will also place referrals locally. Pt and nephew requests no referrals to [facility]. D/C plan: Acute rehab/STR.
--- NOTE | 2022-10-27 19:12 | PC.NURSE ---
Report called to overflow nurse on pt sitaution, pt to get transferred over there soon
[2022-10-27 20:31] VITALS: BP 131/93; PULSE 72; RESP 18; TEMP 36.7; O2SAT 98
--- NOTE | 2022-10-27 20:33 | MHC.EDTECH ---
THIS PCT JUST ASSUMED CARE OF PT ,PT CAME OVER TO OVERFLOW FROM MAIN ED ,PT USE BEDSIDE COMMODE ,VOID LARGE AMOUNT OF URINE ,CARE GIVEN ,VITALS SIGN TAKEN ,ASSIST PT TO BED ,WARM BLANKET GIVEN ,FRESH PITCHER ICE WATER ,TISSUES AND SMALL TRASH BAG .
--- NOTE | 2022-10-27 22:25 | MHC.EDTECH ---
PT UP TO BEDSIDE COMMODE ,VOID THEN BACK TO BED .
--- NOTE | 2022-10-27 23:28 | PC.NURSE ---
assumed care of patient pt resting quietly no apparent distress
--- NOTE | 2022-10-28 02:06 | PC.NURSE ---
pt up to commode with one assist, pt urinating with no difficutlty, back in bed at this time, respirations even and unlabored, no apparent distress
--- NOTE | 2022-10-28 04:10 | PC.NURSE ---
pt sleeping no apparent distress will CTM
--- NOTE | 2022-10-28 04:12 | PC.NURSE ---
med rec completed by pharm on 10/27
--- NOTE | 2022-10-28 04:41 | PC.NURSE ---
pt attempting to get out of bed, stated she needed to answer a phone call pt redirected to bed calm/cooperative no apparent distress
--- NOTE | 2022-10-28 05:07 | PC.NURSE ---
assisted pt to bedside commode and back into bed
[2022-10-28 05:27] VITALS: BP 154/73; PULSE 79; RESP 14; TEMP 36.2; O2SAT 95
--- NOTE | 2022-10-28 08:20 | MHC.EDTECH ---
offered patient a shower and she declined stating that she would take one when she got home.
[2022-10-28 09:35] VITALS: BP 154/73; PULSE 79; O2SAT 95
[2022-10-28] MEDS: Cholecalciferol (Vitamin D3) 25 MCG TABLET PO (11:05)
[2022-10-28] MEDS: Cyanocobalamin (Vitamin B-12) 1,000 MCG TABLET 1000 MCG PO (11:05)
--- NOTE | 2022-10-28 13:01 | MHC.CM.ED ---
Patient remains in ER overflow unit. Physical therapy eval completed. Short term rehab is recommended. [facility] is not able to offer a bed. Multiple bed offers for SNF's discussed with patient's nephew/HCP, Dayne via telephone at [phone]. [facility] is 1st choice. Facility made aware. Waiting to hear when patient can transfer to facility. Met with patient to discuss discharge plan. Patient agreeable to transfer to [facility]. Continue to monitor for d/c needs.
--- NOTE | 2022-10-28 14:28 | MHC.EDTECH ---
patient showered and new loyd and pants.
[2022-10-28 16:00] VITALS: BP 117/75; PULSE 100; RESP 18; TEMP 36.6; O2SAT 97
== END 2022-10-28 16:52 | disposition skilled nursing facility (03) ==
PROVIDERS: Emergency Provider Emergency Medicine; PCP Internal Medicine
DX: R55 Syncope and collapse (principal); M25.522 Pain in left elbow; R26.2 Difficulty in walking, not elsewhere classified; R94.31 Abnormal electrocardiogram [ECG] [EKG]; Z20.822 Contact with and (suspected) exposure to COVID-19; Z20.828 Contact with and (suspected) exposure to other viral communicable diseases; Z79.899 Other long term (current) drug therapy
CPT/HCPCS: 73080; 80053; 81003; 85025; 87635; 93005; 97162; 99285

== ENCOUNTER 2023-03-17 10:47 | Outpatient (REF) | payer MEDICARE, SELFPAY ==
[2023-03-17 11:19] LABS: Blood Urea Nitrogen 13 mg/dL (9-16); Estimated Glomerular Filt Rate > 60
== END 2023-03-17 10:48 | disposition home or self-care (01) ==
LOC: HO.LNP 10:47
PROVIDERS: Visit Provider Internal Medicine
DX: R93.89 Abnormal findings on diagnostic imaging of other specified body structures (principal)
CPT/HCPCS: 82565; 84520

== ENCOUNTER 2023-03-22 08:54 | Outpatient (REF) | payer MEDICARE, SELFPAY ==
--- NOTE | ~2023-03-22 | CT_ITS ---
EXAMINATION: CT CHEST WITHOUT CONTRAST CLINICAL INFORMATION: Likely cancer. Abnormal CT; no recent CT at this institution. History of breast cancer. COMPARISON: Chest x-ray 10/13/2022. CT chest 06/25/2019. TECHNIQUE: Multidetector volumetric CT imaging of the chest was done. Axial MIP volume rendering provided. Sagittal and coronal reformatted images were obtained. This CT examination was performed using dose optimization techniques as appropriate, variously including the following: *Automated exposure control *Adjustment of mA and/or kV according to patient size (this includes techniques or standardized protocols for targeted exams where dose is matched to indication/reason for exam; i.e. extremities or head) *Use of iterative reconstruction technique DLP: 107 mGy-cm. FINDINGS: MANAGER BUILDING: Well-inflated lungs. LUNGS: Patchy parenchymal opacity and reticular stranding in left upper lobe lateral segment. There is a 2 mm nodule in the right major fissure, axial image 133/6, likely a lymph node; a 2 mm nodule right middle lobe, axial image 98/6; a 2 mm nodule pleural-based right middle lobe, axial image 133/6. There is mild peribronchial thickening and cystic changes and intraluminal debris peripherally in the right middle lobe, likely bronchiectasis with inflammatory process. A 5 mm nodule is seen peripherally in the right middle lobe on axial image 45/4. There is an ill-defined 1 cm nodule right lower lobe, axial image 149/6 with mild wall thickening of the adjacent bronchioles distally. There is a pleural-based 2 mm nodule right middle lobe, axial image 146/6. There is mild bronchiectasis in both lung bases with minimal bronchial wall thickening. MEDIASTINUM: The thyroid lobes are slightly asymmetrical but unremarkable. The central trachea and the bronchi are widely patent. The thoracic aorta is of normal caliber. Heart size is normal. There is a triangular-shaped left pericardial opacity measuring 12 Hounsfield units, likely loculated fluid collection or a pericardial cyst. It measures 8.4 x 7.4 x 4.5 cm. There is aortic valve calcification. No pericardial effusion seen. CORONARY ARTERY CALCIFICATION: Mild coronary artery calcifications are present. PLEURA: There is no pleural effusion. No pleural mass or thickening. AXILLA: No lymphadenopathy. UPPER ABDOMEN: Visualized liver, spleen, pancreas and bilateral adrenal glands are unremarkable. There are bilateral radiopaque densities in the pelvis, likely small stones. OSSEOUS STRUCTURES: No aggressive lytic or sclerotic process seen. There are superior endplate Schmorl's nodes T8 and L1 vertebrae. CT/CT chest wo IV con IMPRESSION: Mild bilateral lower lobe bronchiectasis and focal bronchiectasis right middle lobe and right lower lobe with bronchial wall thickening and intrabronchiolar debris simulating as nodules in the right middle lobe and a peribronchiolar nodule in the right lower lobe. Also visualized is mild cystic bronchiectasis with wall thickening, nodular appearance in right middle lobe. These findings could represent focal inflammatory changes of distal bronchioles or resolving inflammatory process. There is diffuse scattered pulmonary nodules with largest nodules measuring 1.7 cm and 5 mm in right lower lobe. These could very well represent large debris within the dilated bronchi. Correlate with any clinical history of pneumonia and if not, recommend CT/PET exam. Fleischner guidelines were followed.
== END 2023-03-22 08:55 | disposition home or self-care (01) ==
LOC: HO.CT 08:54
PROVIDERS: PCP Internal Medicine; Visit Provider Internal Medicine
DX: R93.89 Abnormal findings on diagnostic imaging of other specified body structures (principal)
CPT/HCPCS: 71250

== ENCOUNTER 2023-05-29 10:47 | Outpatient (REF) | payer MEDICARE, SELFPAY ==
[2023-05-29 10:50] LABS: MANUAL DIFF FLAG NO
[2023-05-29 11:37] LABS: Basophils Percent Auto 0.7 % (0-2); Eosinophils Absolute Auto 0.1 X10*3/uL (0.0-0.4); Hematocrit 42.6 % (37.0-47.0); Hemoglobin 13.8 g/dl (12.0-16.0); Imm Gran Abs Auto 0.01 X10*3/uL (0.00-0.03); Imm Gran Pct Auto 0.2 % (0.0-0.4); Lymphocytes Absolute Auto 2.4 X10*3/uL (1.2-4.9); Lymphocytes Percent Auto 39.7 % (20-40); Mean Corpuscular HGB Conc 32.4 g/dl (31.0-35.0); Mean Corpuscular Hemoglobin 31.1 pg (27.0-33.0); Mean Corpuscular Volume 95.9 fL (80.0-98.0); Mean Platelet Volume 11.5 fL (9.4-12.3); Monocytes Absolute Auto 0.5 X10*3/uL (0.1-1.2); Monocytes Percent Auto 8.4 % (2-11); Platelet Count 210 X10*3/uL (160-400); Red Blood Count 4.44 X10*6/uL (4.20-5.50); Red Cell Distribution Width 13.4 % (11.0-16.0); White Blood Count 6.1 X10*3/uL (4.8-10.8)
[2023-05-29 12:03] LABS: Vitamin D 25-OH Total 43.9 ng/mL (>30)
[2023-05-29 12:08] LABS: Alanine Aminotransferase 18 U/L (0-31); Alkaline Phosphatase 85 U/L (39-117); Anion Gap 13 (12-20); Aspartate Amino Transferase 24 U/L (5-31); Bilirubin Total 0.7 mg/dL (0.0-1.0); Blood Urea Nitrogen 19 mg/dL (9-16); Calcium 9.3 mg/dL (8.4-10.2); Carbon Dioxide 25 mmol/L (22-29); Chloride 108 mmol/L (96-108); Cholesterol 268 mg/dL (<200); Estimated Glomerular Filt Rate > 60; Glucose Fasting 81 mg/dL (60-99); HDL Cholesterol 67 mg/dL (>40); LDL Cholesterol Calculated 185 mg/dL (<100); Potassium 4.6 mmol/L (3.3-5.1); Sodium 141 mmol/L (135-145); Total Protein 7.2 g/dL (6.5-8.0); Triglycerides 83 mg/dL (<150)
== END 2023-05-29 10:48 | disposition home or self-care (01) ==
LOC: HO.LNP 10:47
PROVIDERS: Visit Provider Internal Medicine
DX: I10 Essential (primary) hypertension (principal); E78.00 Pure hypercholesterolemia, unspecified; E55.9 Vitamin D deficiency, unspecified
CPT/HCPCS: 80053; 80061; 82306; 85025

== ENCOUNTER 2023-10-02 11:59 | Emergency (ER) | payer MEDICARE, SELFPAY ==
[2023-10-02] VITALS (8 sets, daily range): BP systolic 131–170; BP diastolic 64–97; PULSE 86–111; RESP 16–20; TEMP 36.9–38.4; O2SAT 93–97; BMI 20.8
--- NOTE | ~2023-10-02 | XR_ITS ---
EXAMINATION: XR CHEST CLINICAL INFORMATION: Fall. COMPARISON: None available. TECHNIQUE: Frontal view of the chest was obtained. 2:39 PM FINDINGS: Lungs are clear. No pulmonary vascular congestion. There is no pleural effusion. The heart size is normal. The cardiac and mediastinal contours are normal. There are calcifications of the thoracic aorta. There are multilevel degenerative changes of dorsal spine. XR/XR chest 1V IMPRESSION: Unremarkable examination.
--- NOTE | ~2023-10-02 | XR_ITS ---
EXAMINATION: XR PELVIS CLINICAL INFORMATION: Fall. COMPARISON: Pelvis and right hip October 22, 2020 TECHNIQUE: AP view of the pelvis. FINDINGS: No acute displaced fracture. Deformity of the left inferior pubic ramus likely from an old fracture. Moderate joint narrowing of both hip joints without significant spurring or erosions. Alignment is anatomic. Sacroiliac joints and pubic symphysis are normal. Multilevel degenerative spondylosis lower lumbar spine. No abnormal soft tissue calcifications. Large volume of stool in visualized colonic bowel loops. XR/XR pelvis 1-2V IMPRESSION: 1. No acute displaced fracture.
--- NOTE | ~2023-10-02 | CT_ITS ---
EXAMINATION: CT HEAD WITHOUT CONTRAST CLINICAL INFORMATION: Head trauma COMPARISON: CT head from 10/13/2022 TECHNIQUE: Contiguous axial imaging was performed from the skull base to vertex without intravenous administration of contrast. This CT examination was performed using dose optimization techniques as appropriate, variously including the following: *Automated exposure control *Adjustment of mA and/or kV according to patient size (this includes techniques or standardized protocols for targeted exams where dose is matched to indication/reason for exam; i.e. extremities or head) *Use of iterative reconstruction technique DLP: 904 mGy-cm FINDINGS: There is no evidence of acute intracranial hemorrhage or territorial infarction. Chronic white matter small vessel ischemic changes. Cerebral atrophy with commensurate ventricular changes. Physiologic mineralization of the bilateral basal ganglia, right greater than left. No abnormal mass effect or midline shift is seen. Edward to white matter differentiation is well preserved. No extra-axial fluid collections are identified. Patient motion artifact limits evaluation at the base of skull. The ventricles are normal in size. There is no abnormal attenuation within the brain parenchyma. The osseous structures and soft tissues are normal. The mastoid air cells and visualized portions of the paranasal sinuses are well aerated. CT/CT cervical spine wo IV con IMPRESSION: 1. No acute intracranial pathology. 2. Chronic white matter small vessel ischemic changes. EXAMINATION: Noncontrast CT scan of the cervical spine. INDICATION: Trauma COMPARISON: CT cervical spine from 10/13/2022 TECHNIQUE: Helical, multidetector axial images were obtained from the occiput to the upper thorax. Coronal and sagittal reformats of the cervical spine were provided for interpretation. DLP: 904 mGy-cm FINDINGS: No acute fractures or dislocations of the cervical spine are seen. Grade 1 anterolisthesis of C7 on T1. Multilevel degenerative changes. Anatomic alignment and positioning of the vertebral bodies and posterior elements is noted. The atlantoaxial joint and craniovertebral articulations are normal without evidence of subluxation. There is no prevertebral soft tissue swelling. Biapical pleural parenchymal lung scarring. IMPRESSION: 1. No acute visible fracture or dislocation. 2. Grade 1 anterolisthesis of C7 on T1. 3. Multilevel degenerative changes.
--- NOTE | 2023-10-02 12:13 | ECG_ITS ---
Test Reason : FALL Blood Pressure : / mmHG Vent. Rate : 102 BPM Atrial Rate : 102 BPM P-R Int : 164 ms QRS Dur : 076 ms QT Int : 396 ms P-R-T Axes : 020 014 037 degrees QTc Int : 516 ms Sinus tachycardia Minimal voltage criteria for LVH, may be normal variant ( Sokolow-Scott ) Borderline ECG When compared with ECG of 27-OCT-2022 14:44, No significant change was found Referred By: Hoa Hayes Electronically Signed By:WILLIE COLEMAN
--- NOTE | 2023-10-02 12:27 | ED_ITS ---
HPI - Fall General Chief Complaint: Fall Stated Complaint: FOUND ON FLOOR CONFUSED NO INJURIES Time Seen by Provider: 10/02/23 12:00 Source: patient, family, EMS and old records reviewed Mode of arrival: EMS Limitations: other (cognitive impairment) History of Present Illness HPI Narrative: 83 yo female from home PMH of PE not on thinners, HLD, HTN, has been having some issues recently where she spilled something in the microwave and covered it with the towel then proceeded to cook the towel - elder care got involved. She has family involved and her nephew is here. They have been taking care of her. Today he left her on the couch and was gone for 2 hours when he got there she was on the floor. She does not know why she fell and has no complaints. The patient's family wants STR she has fallen before and done this in the past. 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 MD complaint: fall Onset (ago): hour(s) (within last 2 hours) Fall from: other (unknown ) Fall witnessed: no Place fall occurred: home Loss of consciousness: unsure Prolonged down time: hour(s) (2) Symptoms prior to fall: none Context: history of frequent falls Location of injury: other (denies) Severity: mild Associated symptoms (after fall): denies Related Data Home Medications Medication Instructions Recorded Confirmed ferrous sulfate 325 mg (65 mg 325 mg PO DAILY 07/16/20 10/27/22 iron) tablet cyanocobalamin (vitamin B-12) 1,000 mcg PO DAILY 10/27/22 10/27/22 1,000 mcg tablet Previous Rx's Medication Instructions Recorded cholecalciferol (vitamin D3) 25 25 mcg PO DAILY #30 tabs 11/27/21 mcg (1,000 unit) tablet (Vitamin D3) Allergies Allergy/AdvReac Type Severity Reaction Status Date / Time N.K.D.A. Allergy Unknown N/A Uncoded 05/12/20 09:07 Review of Systems 2 Review of Systems: ROS unable to be obtained due to dementia [facility] Past Medical History Attestation statement: The following information was validated with the patient. 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 History of pulmonary embolism Hypercholesterolemia Hypertension Surgical History History of left total mastectomy Family History Family History Brother History of stomach cancer History of liver cancer Social History Social History (Updated 10/02/23 @ 12:28 by Hoa Hayes DO) Patient Tobacco Use Status: Tobacco use Unknown Use of substances other than those prescribed or required for medical reasons: No Advance Directives: Yes Advance Directives on File: Yes Advance Directives Date on File: 10/22/20 Physical Exam 2 Vital Signs: Vital Signs: Last Vital Signs Temp 101.1 F H 10/02/23 16:07 Pulse 111 H 10/02/23 16:07 Resp 20 10/02/23 16:07 BP 156/82 H 10/02/23 16:07 Pulse Ox 94 10/02/23 16:07 O2 Del Method Room Air 10/02/23 16:07 BMI result Body Mass Index 20.8 Appearance: Alert. Oriented X to person and place. No acute distress. Eyes: Pupils equal, round and reactive to light. ENT: Pharynx normal. atraumatic Neck: Normal inspection. Neck supple. CVS: Normal heart rate and rhythm. Pulses normal. Respiratory: No respiratory distress. Breath sounds normal. Abdomen: Soft and nontender. Skin: Skin warm and dry. Normal skin color. Normal skin turgor. Extremities: No lower extremity edema. No calf ttp Neuro: Oriented X x2. No motor deficit. No sensory deficit. Course Course Course Narrative: developed a fever no UTI, no pneumonia, no WBC count tylenol and viral panel ordered has slight runny nose signed out to Dr. Dodd 415pm if negative viral panel will need further workup Medical Decision Making Medical Decision Making MDM Narrative: 83 yo female from home PMH of PE not on thinners, HLD, HTN, here with fall hx of falls in the past at this time she is at baseline cannot provide much history will need CT head/cspine, pelvis, UA, labs and family is requesting STR she has no CP/SOB she denies any symptoms has normal VS doubt ACS or VTE but will obtain EKG and troponin. Differential Diagnosis Differential Diagnoses: The differential diagnosis associated with the presentation includes falls, UTI Admission/Observation Consideration of admission/observation: Escalation of care including admission/observation considered physician observation started at 322pm for PT/CM at family's request Lab Data MDM Lab Attestation statement: I reviewed the patient's lab results. 10/02/23 13:27 10/02/23 13:27 Labs: Lab Results 10/02/23 10/02/23 Range/Units 13:14 13:27 WBC 6.1 (4.8-10.8) X10*3/uL RBC 4.80 (4.20-5.50) X10*6/uL Hgb 14.8 (12.0-16.0) g/dl Hct 44.7 (37.0-47.0) % MCV 93.1 (80.0-98.0) fL MCH 30.8 (27.0-33.0) pg MCHC 33.1 (31.0-35.0) g/dl RDW 13.4 (11.0-16.0) % Plt Count 186 (160-400) X10*3/uL MPV 9.9 (9.4-12.3) fL Immature Gran % (Auto) 0.2 (0.0-0.4) % Neut % (Auto) 83.7 H (45-73) % Lymph % (Auto) 7.5 L (20-40) % [place] % (Auto) 8.3 (2-11) % Eos % (Auto) 0.0 (0-4) % Baso % (Auto) 0.3 (0-2) % Lymph # (Auto) 0.5 L (1.2-4.9) X10*3/uL [place] # (Auto) 0.5 (0.1-1.2) X10*3/uL Eos # (Auto) 0.0 (0.0-0.4) X10*3/uL Baso # (Auto) 0.0 (0.0-0.2) X10*3/uL Abs Immat Gran (auto) 0.01 (0.00-0.03) X10*3/uL Absolute Neuts (auto) 5.1 (2.0-8.3) x10*3/uL Absolute Nucleated RBC 0.000 (0.0-0.012) X10*3/uL Nucleated RBC % (auto) 0.0 (0.0-0.2) /100WBC PT 11.4 (11.1-13.3) SEC INR 0.9 (0.9-1.1) Sodium 138 (135-145) mmol/L Potassium 3.6 (3.3-5.1) mmol/L Chloride 111 H (96-108) mmol/L Carbon Dioxide 19 L (22-29) mmol/L Anion Gap 12 (12-20) BUN 12 (9-16) mg/dL Creatinine 0.58 (0.5-1.4) mg/dL Estim Creat Clear Calc 79.0 Estimated GFR > 60 Random Glucose 87 (60-115) mg/dL Calcium 7.4 L D (8.4-10.2) mg/dL Magnesium 1.7 (1.6-2.6) mg/dL Total Bilirubin 0.7 (0.0-1.0) mg/dL Direct Bilirubin 0.2 (0.0-0.5) mg/dL AST 23 (5-31) U/L ALT 12 (0-31) U/L Alkaline Phosphatase 75 (39-117) U/L Total Creatine Kinase 307 H (26-140) U/L Troponin I High Sens 7.0 D (<3.5-17.0) ng/L B-Natriuretic Peptide 122 H (<100) pg/mL Total Protein 6.3 L (6.5-8.0) g/dL Albumin 3.3 L (3.5-5.0) g/dL Lipase 24 (8-78) U/L TSH 0.85 (0.32-4.0) uIU/mL Urine Color Yellow Urine Appearance Clear Urine pH 6.0 (5.0-9.0) Ur Specific [place] 1.015 (1.005-1.025) Urine Protein Trace (Neg-Trace) mg/dL Urine Glucose (UA) Negative (Negative) mg/dL Urine Ketones 40 (Negative) mg/dL Urine Blood Moderate (2+) H (Negative) Urine Nitrite Negative (Negative) Ur Leukocyte Esterase Negative (Negative) Urine RBC 11-20 H (0-2) /HPF Urine WBC 0-5 (0-5) /HPF Ur Squamous Epith Cells 0-2 (0-2) /HPF Urine Bacteria None Seen (None Seen) Hyaline Casts 0-2 (0-2) /LPF Independent Interpretation I performed an independent interpretation of an: EKG, Plain X-Ray (no trauma) and CT Scan (no trauma noted) Interpretation: Rate: 102 Rhythm: sinus tach [place]: normal Normal P waves. Normal GUME. Normal QRS complex. ST T wave : no LISA, LVH noted qTC: 516 prior studies: no acute ischemia The study has been interpreted contemporaneously by me. . Radiology Impression Discussion of test interpretation with radiology: I have reviewed the radiologist's reading. Independent Historian Clinical information obtained from an independent historian. History obtained from or confirmed by: EMS External Record Review External record reviewed: Inpatient record Discharge Plan Discharge Clinical Impression: Recurrent falls, Acute febrile illness Patient Disposition: Still a Patient Prescriptions: No Action cholecalciferol (vitamin D3) [Vitamin D3] 25 mcg (1,000 unit) Tablet 25 mcg PO DAILY Qty: 30 4RF cyanocobalamin (vitamin B-12) 1,000 mcg Tablet 1,000 mcg PO DAILY ferrous sulfate 325 mg (65 mg iron) tablet 325 mg PO DAILY
--- NOTE | 2023-10-02 12:36 | PC.NURSE ---
pt rigorous in triage, a&o x4, calm, and cooperative. pt sts she is chronically ill and has lost weight recently. was an outpatient response in Dr. Brennan's office. pt had an endoscopy last week. pt sts she has not been sleeping or eating. gets frequent headaches. reporting pain to head, neck, back, throat, and abdomen. pt sts she gets these tremors/ rigors every once in a while but this time it's real bad . last time was over a year ago. pt has a port to right upper chest for IVIG infusions she gets once a month. hx of aneurysm with stent placed 8 years ago. pt and sts she has been unsteady on feet and drops things easily. pt scheduled for head CT with contrast for next week with Dr. Brennan.
[2023-10-02 13:31] LABS: Appearance Urine Clear; Color Urine Yellow; Glucose Urine UA Negative (Negative); Leukocyte Esterase Urine Negative (Negative); Nitrite Urine Negative (Negative); Specific Gravity - Urine 1.015 (1.005-1.025); UMIC TRIGGER UACC YES; Urine Blood Moderate (2+) (Negative); Urine Ketones 40 mg/dL (Negative); Urine Protein Trace mg/dL (Neg-Trace)
[2023-10-02 13:33] LABS: MANUAL DIFF FLAG NO
[2023-10-02 13:35] LABS: Bacteria Urine None Seen (None Seen); Hyaline Casts Urine 0-2 /LPF (0-2); Squamous Epithelial Cell Urine 0-2 /HPF (0-2); WBC Urine 0-5 /HPF (0-5)
[2023-10-02 13:37] LABS: Basophils Percent Auto 0.3 % (0-2); Hematocrit 44.7 % (37.0-47.0); Hemoglobin 14.8 g/dl (12.0-16.0); Imm Gran Abs Auto 0.01 X10*3/uL (0.00-0.03); Imm Gran Pct Auto 0.2 % (0.0-0.4); Lymphocytes Absolute Auto 0.5 X10*3/uL (1.2-4.9); Lymphocytes Percent Auto 7.5 % (20-40); Mean Corpuscular HGB Conc 33.1 g/dl (31.0-35.0); Mean Corpuscular Hemoglobin 30.8 pg (27.0-33.0); Mean Corpuscular Volume 93.1 fL (80.0-98.0); Mean Platelet Volume 9.9 fL (9.4-12.3); Monocytes Absolute Auto 0.5 X10*3/uL (0.1-1.2); Monocytes Percent Auto 8.3 % (2-11); Neutrophils Absolute Auto 5.1 x10*3/uL (2.0-8.3); Neutrophils Percent Auto 83.7 % (45-73); Platelet Count 186 X10*3/uL (160-400); Red Cell Distribution Width 13.4 % (11.0-16.0); White Blood Count 6.1 X10*3/uL (4.8-10.8)
[2023-10-02 13:41] LABS: INTERNATIONAL NORM RATIO 0.9 (0.9-1.1); Prothrombin Time 11.4 SEC (11.1-13.3)
[2023-10-02 13:50] LABS: Alanine Aminotransferase 12 U/L (0-31); Albumin Level 3.3 g/dL (3.5-5.0); Alkaline Phosphatase 75 U/L (39-117); Anion Gap 12 (12-20); Aspartate Amino Transferase 23 U/L (5-31); Bilirubin Direct 0.2 mg/dL (0.0-0.5); Bilirubin Total 0.7 mg/dL (0.0-1.0); Blood Urea Nitrogen 12 mg/dL (9-16); Calcium 7.4 mg/dL (8.4-10.2); Carbon Dioxide 19 mmol/L (22-29); Chloride 111 mmol/L (96-108); Estimated Glomerular Filt Rate > 60; Glucose Random 87 mg/dL (60-115); Lipase 24 U/L (8-78); Magnesium 1.7 mg/dL (1.6-2.6); Potassium 3.6 mmol/L (3.3-5.1); Sodium 138 mmol/L (135-145); Total Protein 6.3 g/dL (6.5-8.0)
[2023-10-02 13:58] LABS: B Type Natriuretic Peptide 122 pg/mL (<100)
[2023-10-02 14:10] LABS: TSH reflex Free T4 0.85 uIU/mL (0.32-4.0)
--- NOTE | 2023-10-02 14:28 | PC.NURSE ---
Dayne nephew contact [phone] Also relays interest in rehab placement in no admit necessary in order to have time to set up his home for pt to move there, Dayne suggest staff avoid the word home when speaking about a SNF/Rehab is pt became agitated that word was used last time here. Pt moved to room 15 for straight cath and EKG and labs, Back to sleep in 17H at this time. Collar in place, taken to xray
--- NOTE | 2023-10-02 16:10 | PC.NURSE ---
Pt noted to be more altered, skin hot and clammy. Rectal temp assessed and is 101.1 F. Vital signs obtained. Provider alerted of pts status. Obtaining swab at this time.
[2023-10-02] MEDS: Acetaminophen 325 MG TABLET 650 MG PO (16:25)
[2023-10-02 17:26] LABS: Influenza A PCR NEGATIVE (Negative); Influenza B PCR NEGATIVE (Negative); Resp Syncy Virus RNA Qual PCR NEGATIVE (Negative); SARS COV2 PCR INHOUSE POSITIVE (Negative)
--- NOTE | 2023-10-02 18:19 | PC.NURSE ---
Temp 100.5 rectal, COVID +, pt remains confused, cleaned again for urine incontinence, repositioned and VSS. Seen by Physical therapy, awaits case management.
[2023-10-03 05:55] VITALS: BP 166/97; PULSE 96; RESP 17; TEMP 36.8; O2SAT 95
--- NOTE | 2023-10-03 08:19 | PC.NURSE ---
pt assisted to the commode, had a large but hard bowel movement, pt is alert to self and was able to report that she is in a hospital bit not sure which one, does not know the month but pt does have hx of dementia, respirations even and unlabored, ls clear, pt ate about 90% of breakfast. pt assisted back to bed.
[2023-10-03 10:47] VITALS: BP 123/74; PULSE 95; RESP 18; TEMP 37.1; O2SAT 94
--- NOTE | 2023-10-03 12:38 | MHC.CM.ED ---
Received case management consult overnight. Patient came to the ER due to weakness. Work up negative except for being Covid positive. Physical therapy eval completed. Short term rehab is recommended. Patient has not been inpatient in any facility in the past 30 days. Referral made to all 3 acute rehab facilities. No bed offers. Referral to SNF for private pay broadcasted in [facility]. [facility] is able to offer a bed for $452/day with 30 days up front. They would need a check for $13,560. [facility] is also able to offer a bed for $421/day with 30 days up front. They would need a check for $12,630. Attempted to meet with patient in regards to discharge planning. Patient currently sleeping. Spoke with patient's son/HCP, Dayne, via telephone at [phone]. Per Dayne, patient does not have the funds to privately patient. Patient underwent cancer treatment in the past that financially drained patient. Patient will have to return home with [facility] for senior living and physical therapy. Patient has been active with [facility] in the past. Referral made in [facility]. Dayne will be here tomorrow 10/03 at 11am to transport patient home. Patient, Dayne, Yesi BARNES and Faye HILL aware. Continue to monitor for d/c needs.
[2023-10-03 15:53] VITALS: BP 154/89; PULSE 95; RESP 15; TEMP 36.8; O2SAT 97
--- NOTE | 2023-10-03 19:59 | PHA.MEDREC ---
Pharmacy Consult ? Medication Reconciliation Pharmacy has completed the medication reconciliation. Patient confirms that she only takes Vitamin B12 and Iron at home.
[2023-10-03 22:10] VITALS: BP 124/60; PULSE 98; RESP 16; TEMP 36.9
[2023-10-03 22:18] VITALS: BP 124/60; PULSE 98; RESP 18; TEMP 36.9; O2SAT 94
--- NOTE | 2023-10-03 22:19 | PC.NURSE ---
Patient alert and oriented x 1. self. unsteady when walking tends to lean back to far. Patient denies any pain. Patient ambulates independently with stand by assist. Plan is to discharge with [facility].
--- NOTE | 2023-10-04 00:52 | PC.NURSE ---
pt is on isolation and sleeping at this time. No sign of distress at this time.
--- NOTE | 2023-10-04 01:51 | MHC.EDTECH ---
pt up to use bathroom, returned to bed warm blankets and gingerale given.
--- NOTE | 2023-10-04 05:52 | MHC.EDTECH ---
This underwriter mortgage loan attempted to put a camera on pt. VMT called and they told t/w that there was no more room for camera's Monika RN notified. T/W got a hospital bed from [facility]. Patient initally refused to change beds stating you don't know what you are doing.This is not a hospital bed . RN helped transfer patient to hospital bed,alrm is on . Pt resting quietly.
[2023-10-04 11:26] VITALS: BP 131/82; PULSE 89; RESP 16; TEMP 36.5; O2SAT 95
[2023-10-04 11:27] VITALS: BP 131/82; PULSE 89; RESP 16; TEMP 36.5; O2SAT 95
== END 2023-10-04 11:27 | disposition home or self-care (01) ==
PROVIDERS: Emergency Provider Emergency Medicine; PCP Internal Medicine
DX: R50.9 Fever, unspecified (principal); R29.6 Repeated falls; I10 Essential (primary) hypertension; Z86.711 Personal history of pulmonary embolism; Z11.52 Encounter for screening for COVID-19; Z20.828 Contact with and (suspected) exposure to other viral communicable diseases
CPT/HCPCS: 0241U; 36415; 70450; 71045; 72125; 72170; 80048; 80076; 81001; 82550; 83690; 83735; 83880; 84443; 84484; 85025; 85610; 93005; 97161; 99285

== ENCOUNTER → 2023-10-02 12:13 | Outpatient (BNV) | payer MEDICARE, SELFPAY | PROVIDERS: Emergency Provider Emergency Medicine; PCP Internal Medicine; Visit Provider Internal Medicine | DX: R00.0 Tachycardia, unspecified (principal) | CPT/HCPCS: 93010 ==

== ENCOUNTER 2023-11-15 15:22 | Outpatient (AMB) | payer MEDICARE, SELFPAY ==
--- OUTSIDE RECORDS SUMMARY | 2023-11-15 15:24 | XMS_ITS | Continuity of Care Document ---
Author Organization [facility] José Luis Lalit lt Address [address] [place] [address]- Care Team Providers Care Director Human Services Name Role Phone Dionicio ANTON, Lucy Yanez Primary Care Physician [place] [facility] [place](s): 12/14/21 - 01/13/22 [facility] Adult [address] [place] [address]- Allergies, Adverse Reactions, Alerts Substance Reaction Severity Status cefuroxime Active Latex rash Active metFORMIN Diarrhea Active Macrobid 1, 2 Active ALVARO inhibitors muscle pain Active 1Reports Macrobid causes inflammation in her lungs that presents as atypical pneumonia. 2inflammation of the lung Immunizations Given and Recorded Vaccine Date Status Refusal Reason influenza virus vaccine, inactivated 04/28/21 Give n influenza virus vaccine, inactivated 04/22/20 Give n influenza virus vaccine, inactivated 04/09/19 Boyd rded influenza virus vaccine, inactivated 03/28/18 Boyd rded SARS-CoV-2 (COVID-19) mRNA BNT-162b2 vac 04/22/21 Recorded SARS-CoV-2 (COVID-19) mRNA BNT-162b2 vac 09/09/20 Given SARS-CoV-2 (COVID-19) mRNA BNT-162b2 vac 08/19/20 Recorded zoster vaccine, inactivated 04/06/19 Recorded Medications Accu-Chek Paradise Glucose Meter See Instructions, # 1 each, Refills 1, Tot. Refills 1, Maintenance, To check blood sugar twice daily. E11.9 DM II, 01/28/21 14:27:00 EDT, Supply Start Date: 01/28/21 Status: Ordered Accu-Chek Paradise Plus Test Strips See Instructions, # 100 each, Refills 3, Tot. Refills 3, Maintenance, To check blood sugar twice daily. E11.9 DM II, 01/28/21 14:22:00 EDT, Supply Start Date: 01/28/21 Status: Ordered Accu-Chek Multiclix Drum Lancets See Instructions, # 100 each, Refills 3, Tot. Refills 3, Maintenance, To check blood sugar twice daily. E11.9 DM II, 01/28/21 14:23:00 EDT, Supply Start Date: 01/28/21 Status: Ordered aspirin 81 mg oral delayed release tablet 81 mg, 1, tablet, By Mouth, Daily, # 30 tablet, Refills 0, Maintenance, 02/21/20 10:55:00 EDT Start Date: 02/21/20 Status: Ordered cholestyramine 4 g/4.8 g oral powder for reconstitution = 4 Gm, By Mouth, 2 times a day, 0 Refills, Maintenance, 08/09/21 8:34:00 EST, Partial fill upon patient request if the prescription is for a schedule II opioid drug. Start Date: 08/09/21 Status: Ordered Crestor 10 mg oral tablet 1 tablet = 10 mg, By Mouth, Daily, # 90 tablet, 3 Refills, Maintenance, 12/30/20 11:48:00 EDT, Tablet, [facility], 161.5, cm, 12/30/20 11:09:00 EDT, Height Start Date: 12/30/20 Status: Ordered glipiZIDE 5 mg oral tablet, extended release 1 tablet = 5 mg, By Mouth, Daily, # 90 tablet, 1 Refills, Maintenance, 10/11/21 11:08:00 EDT, ER Tablet, [facility], Partial fill upon patient request if the prescription is for a schedule II opioid drug., 161.5, cm, 10/11/21 10:53:... Start Date: 10/11/21 Status: Ordered hydrochlorothiazide-triamterene 25 mg-37.5 mg oral capsule 1 capsule, By Mouth, Daily, # 90 capsule, 3 Refills, Maintenance, 12/30/20 11:49:00 EDT, Capsule, [facility], 1 capsule By Mouth Daily, 161.5, cm, 12/30/20 11:09:00 EDT, Height Start Date: 12/30/20 Status: Ordered levothyroxine 0.05 mg oral tablet See Instructions, TAKE 1 TABLET DAILY, TAKE 2 TABLETS ON MONDAY, # 102 tablet, 3 Refills, 10/11/21 11:14:00 EDT, [facility], 161.5, cm, 10/11/21 10:53:00 EDT, Height Start Date: 10/11/21 Status: Ordered loratadine 10 mg oral tablet 1, tablet, By Mouth, Daily, # 90 tablet, Refills 1, Route to Pharmacy Electronically, [id number], 161.5, cm, 08/16/21 14:16:00 EST, Height Start Date: 09/03/21 Status: Ordered losartan 50 mg oral tablet 50 mg, 1, tablet, By Mouth, Daily, # 90 tablet, Refills 3, Tot. Refills 3, Maintenance, 12/30/20 11:48:00 EDT, Route to Pharmacy Electronically, [facility], 161.5, cm, 12/30/20 11:09:00 EDT, Height Start Date: 12/30/20 Status: Ordered Multivitamin Daily, 0 Refills, Maintenance, 02/21/20 10:55:00 EDT Start Date: 02/21/20 Status: Ordered Nexium 20 mg oral enteric coated capsule 1 capsule = 20 mg, By Mouth, Daily, # 90 capsule, 1 Refills, Maintenance, 09/13/21 9:37:00 EST, EC Capsule, [facility], Partial fill upon patient request if the prescription is fora schedule II opioid drug., 161.5, cm, 09/13/21 8:5... Start Date: 09/13/21 Status: Ordered Nexium Capsule See Instructions, 22 mg 1 every other day, Refills 0, Maintenance, 05/06/19 16:33:27 EDT, Instructions Replace Required Details Start Date: 05/06/19 Status: Ordered [place]-3 oral capsule See Instructions, one daily, 0 Refills, Maintenance, 05/07/19 16:47:12 EDT Start Date: 05/07/19 Status: Ordered OneTouch Verio Lancets See Instructions, # 100 each, Refills 5, Tot. Refills 5, Maintenance, To check fasting blood sugar daily. E11.9 DM II, 03/10/20 14:46:00 EDT, Supply, 161.5, cm, 02/21/20 10:48:00 EDT, Height Start Date: 03/10/20 Status: Ordered OneTouch Verio Test Strips See Instructions, # 100 each, Refills 5, Tot. Refills 5, Maintenance, To check fasting blood sugar daily. E11.9 DM II, 03/10/20 14:46:00 EDT, Supply, 161.5, cm, 02/21/20 10:48:00 EDT, Height Start Date: 03/10/20 Status: Ordered timolol maleate 0.5% ophthalmic solution 1 drops, Eyes, Both, 2 times a day, # 10 mL, 0 Refills, Maintenance, 12/27/19 10:36:00 EDT, Solution Start Date: 12/27/19 Status: Ordered Problem List Condition Effective Dates Status Health Status Inform ant Anxiety(Confirmed) Active Benign essential hypertension(Confirmed) Active Glaucoma(Confirmed) Active Hypercholesterolemia(Confirmed) Active Hypothyroidism(Confirmed) Active Obese class I(Confirmed) Active Type II diabetes mellitus(Confirmed) Active Social History Social History Type Response Smoking Status Former smoker, quit more than 30 days ago entered on: 05/16/19 Sex
--- OUTSIDE RECORDS SUMMARY | 2023-11-15 15:24 | XMS_ITS | Continuity of Care Document ---
Author Organization [facility] José Luis Lalit lt Address [address] [place] [address]- Care Team Providers Care Welder Setter Electron Beam Machine Name Role Phone Dionicio ANTON, Lucy Yanez Primary Care Physician Encounter [facility] [place] Date(s): 04/05/21 - 05/05/21 [facility] Adult [address] [place] [address]- Allergies, Adverse Reactions, Alerts Substance Reaction Severity Status cefuroxime Active Macrobid 1, 2 Active Latex rash Active ALVARO inhibitors muscle pain Active 1Reports [...] Boyd rded SARS-CoV-2 (COVID-19) mRNA BNT-162b2 vac 09/09/20 Given [...] 10:55:00 EDT Start Date: 02/21/20 Status: Ordered Claritin 10 mg oral tablet 10 mg, 1, tablet, By Mouth, Daily, # 90 tablet, Refills 1, Tot. Refills 1, Maintenance, 03/08/21 9:39:00 EDT, Route to Pharmacy Electronically, [facility]/pharmacy #[id number], 161.5, cm, 12/30/20 11:09:00 EDT, Height Start Date: 03/08/21 Status: Ordered Crestor 10 mg oral tablet 1 tablet = 10 mg, By Mouth, Daily, # 90 tablet, 3 Refills, Maintenance, 12/30/20 11:48:00 EDT, Tablet, [facility], 161.5, cm, 12/30/20 11:09:00 EDT, Height Start Date: 12/30/20 Status: Ordered hydrochlorothiazide-triamterene 25 mg-37.5 mg oral capsule 1 capsule, By Mouth, Daily, # 90 capsule, 3 Refills, Maintenance, 12/30/20 11:49:00 EDT, Capsule, [facility], 1 capsule By Mouth Daily, 161.5, cm, 12/30/20 11:09:00 EDT, Height Start Date: 12/30/20 Status: Ordered levothyroxine 0.05 mg oral tablet See Instructions, TAKE 1 TABLET DAILY, TAKE 2 TABLETS ON MONDAY, # 34 tablet, 5 Refills, [facility], 161.5, cm, 04/01/21 11:03:00 EDT, Height Start Date: 04/24/21 Status: Ordered losartan 50 mg oral tablet 50 mg, 1, tablet, By Mouth, Daily, # 90 tablet, Refills 3, Tot. Refills 3, Maintenance, 12/30/20 11:48:00 EDT, Route to Pharmacy Electronically, [facility], 161.5, cm, 12/30/20 11:09:00 EDT, Height Start Date: 12/30/20 Status: Ordered metFORMIN 500 mg oral tablet, extended release 1 tablet = 500 mg, By Mouth, 2 times a day, # 180 tablet, 3 Refills, Maintenance, 12/30/20 11:45:00EDT, [facility], 161.5, cm, 12/30/20 11:09:00 EDT, Height Start Date: 12/30/20 Stop Date: 12/25/21 Status: Ordered Multivitamin Daily, 0 Refills, Maintenance, 02/21/20 10:55:00 EDT Start Date: 02/21/20 Status: Ordered Nexium Capsule See Instructions, 22 mg 1 every other day, Refills 0, Maintenance, 05/06/19 16:33:27 EDT, Instructions Replace Required Details Start Date: 05/06/19 Status: Ordered [place]-3 oral capsule See Instructions, one daily, 0 [...] EDT, Height Start Date: 03/10/20 Status: Ordered pantoprazole 20 mg oral delayed release tablet 1 tablet = 20 mg, By Mouth, Daily, # 90 tablet, 1 Refills, Maintenance, 01/04/21 14:00:00 EDT, CR Tablet, 161.5, cm, 12/30/20 11:09:00 EDT, Height Start Date: 01/04/21 Stop Date: 07/03/21 Status: Ordered timolol maleate 0.5% ophthalmic solution 1 drops, Eyes, Both, 2 times a day, # 10 mL, 0 Refills, Maintenance, 12/27/19 10:36:00 EDT, Solution Start Date: 12/27/19 Status: Ordered Problem List Condition Effective Dates Status Health Status Inform ant Anxiety(Confirmed) Active Benign essential hypertension(Confirmed) Active Glaucoma(Confirmed) Active Hypercholesterolemia(Confirmed) Active Hypothyroidism(Confirmed) Active Type II diabetes mellitus(Confirmed) Active Social History Social History Type Response Smoking Status Former smoker, quit more than 30 days ago entered on: 05/16/19 Sex
--- OUTSIDE RECORDS SUMMARY | 2023-11-15 15:24 | XMS_ITS | Continuity of Care Document ---
Author Organization [facility] José Luis Lalit lt Address [address] [place] [address]- Care Team Providers Care Christian Education Director Name Role Phone Dionicio ANTON, Lucy Yanez Primary Care Physician Encounter [facility] [place] Date(s): 04/02/21 - 05/02/21 [facility] [place] [address] [place] [address]- Allergies, Adverse Reactions, Alerts Substance Reaction Severity [...] 03/08/21 9:39:00 EDT, Route to Pharmacy Electronically, [facility]/pharmacy #[id number], 161.5, cm, 12/30/20 11:09:00 EDT, Height [...] Required Details Start Date: 05/06/19 Status: Ordered Drum[place]-3 oral capsule See Instructions, one daily, 0 [...]
--- OUTSIDE RECORDS SUMMARY | 2023-11-15 15:24 | XMS_ITS | Continuity of Care Document ---
Author Organization [facility] José Luis Lalit lt Address [address] [place] [address]- Care Team Providers Care Repair Coil Winder Name Role Phone Dionicio ANTON, Lucy Yanez Primary Care Physician Encounter [facility] Date(s): 05/12/23 - 06/11/23 [facility] José Luis Adult [address] [place] [address]- Allergies, Adverse Reactions, Alerts Substance Reaction Severity Status cefuroxime Active beta blockers Active Macrobid 1, 2 Active Bactrim Active Latex rash Active ALVARO inhibitors muscle pain Active metFORMIN Diarrhea Active 1Reports Macrobid causes inflammation in her lungs that presents as atypical pneumonia. 2inflammation of the lung Immunizations Given and Recorded Vaccine Date Status Refusal Reason RSV vaccine preF3, recombinant 05/28/23 Recorded Influenza Virus Vaccine (oldterm) 1 04/19/23 Recor ded SARS-CoV-2 mRNA ([id number]) vax 2 04/19/23 Recorded influenza virus vaccine, inactivated 04/05/22 Boyd rded influenza virus vaccine, inactivated 04/28/21 Give n influenza virus vaccine, inactivated 04/22/20 Give n influenza virus vaccine, inactivated 04/09/19 Boyd rded influenza virus vaccine, inactivated 03/28/18 Boyd rded [id number] bivalent booster vax 04/02/22 Recorded SARS-CoV-2 (COVID-19) mRNA-1273 vaccine 11/25/21 R ecorded SARS-CoV-2 (COVID-19) mRNA BNT-162b2 vac 04/22/21 Recorded SARS-CoV-2 (COVID-19) mRNA BNT-162b2 vac 09/09/20 Given SARS-CoV-2 (COVID-19) mRNA BNT-162b2 vac 08/19/20 Recorded zoster vaccine, inactivated 04/06/19 Recorded 1Result Comment: [facility] in [place] 2Result Comment: [facility] [place] Medications Accu-Chek Paradise Glucose Meter See Instructions, [...] EDT, Supply Start Date: 01/28/21 Status: Ordered anastrozole 1 mg oral tablet 1 tablet, By Mouth, Daily, # 90 tablet, 1 Refills, Maintenance, 04/09/23 17:21:00 EDT, [facility], 161, cm, 02/22/23 11:03:00 EDT, Height, 86.9, kg, 10/28/22 13:31:00 EDT, Dry Weight Start Date: 04/09/23 Status: Ordered esomeprazole 20 mg oral enteric coated capsule 1 capsule, By Mouth, Daily, # 90 capsule, 3 Refills, Maintenance, 01/27/23 9:13:00 EDT, [facility], 161, cm, 10/28/22 13:31:00 EDT, Height, 86.9, kg, 10/28/22 13:31:00 EDT, DryWeight Start Date: 01/27/23 Status: Ordered GlipiZIDE XL 10 mg oral tablet, extended release 2 tablet = 20 mg, By Mouth, Daily, # 180 tablet, 1 Refills, Maintenance, 02/16/23 6:50:00 EDT, [facility], Partial fill upon patient request if the prescription is for a schedule II opioid drug., 161, cm, 02/07/23 11:15:00 EDT,... Start Date: 02/16/23 Status: Ordered hydrochlorothiazide-triamterene 25 mg-37.5 mg oral capsule 1 capsule, By Mouth, Daily, # 90 capsule, 1 Refills, Maintenance, 04/06/23 8:40:00 EDT, [facility], 90, TAKE 1 CAPSULE DAILY, 161, cm, 02/22/23 11:03:00 EDT, Height, 86.9, kg, 10/28/22 13:31:00 EDT, Dry Weight Start Date: 04/06/23 Status: Ordered latanoprost 0.005% ophthalmic solution 1 drops, Eyes, Both, Daily at bedtime, # 3 mL, 0 Refills, Maintenance, 05/04/23 15:31:00 EDT, [facility], Partial fill upon patient request if the prescription is for a schedule II opioid drug. Start Date: 05/04/23 Status: Ordered LORazepam 0.5 mg oral tablet 1 tablet = 0.5 mg, By Mouth, Daily at bedtime, for 30 days, # 12 tablet, 2 Refills, Acute 07/20/23 6:50:00 EST, 04/21/23 6:50:00 EDT, [facility], 161, cm, 02/22/23 11:03:00 EDT, Height, 86.9, kg, 10/28/22 13:31:00 EDT, Dry Weight Start Date: 04/21/23 Stop Date: 07/20/23 Status: Ordered losartan 50 mg oral tablet 1 tablet, By Mouth, Daily, for 90 days, # 90 tablet, 1 Refills, Physician Stop 02/29/24 11:33:00 EDT, 09/02/23 11:33:00 EST, [facility], 161, cm, 02/22/23 11:03:00 EDT, Height,86.9, kg, 10/28/22 13:31:00 EDT, Dry Weight Start Date: 09/02/23 Stop Date: 02/29/24 Status: Ordered Mastectomy Bra See Instructions, # 3 each, Refills 1, Tot. Refills 1, Maintenance, Left breast cancer status post left lumpectomy, 05/04/23 17:27:00 EDT, Supply Start Date: 05/04/23 Status: Ordered Mastectomy Prosthesis See Instructions, # 1 each, Maintenance, left breast cancer, left lumpectomy, 02/22/23 12:04:00 EDT, Supply Start Date: 02/22/23 Status: Ordered Multivitamin Daily, 0 Refills, Maintenance, 02/21/20 10:55:00 EDT Start Date: 02/21/20 Status: Ordered OneTouch Verio Lancets See Instructions, [...] EDT, Height Start Date: 03/10/20 Status: Ordered rosuvastatin 10 mg oral tablet 1 tablet, By Mouth, Daily, # 90 tablet, 1 Refills, Maintenance, 03/09/23 9:18:00 EDT, [facility], 161, cm, 02/22/23 11:03:00 EDT, Height, 86.9, kg, 10/28/22 13:31:00 EDT, Dry Weight Start Date: 03/09/23 Status: Ordered Synthroid 0.05 mg oral tablet 1 tablet, By Mouth, Daily, TAKE 2TABLETS ON MONDAY, # 102 tablet, 1 Refills, Maintenance, 01/27/23 4:55:00 EDT, [facility], 161, cm, 10/28/22 13:31:00 EDT, Height, 86.9, kg, 10/28/22 13:31:00 EDT, Dry Weight Start Date: 01/27/23 Status: Ordered timolol maleate 0.5% ophthalmic solution 1 drops, Eyes, Both, 2 times a day, # 10 mL, 0 Refills, Maintenance, 12/27/19 10:36:00 EDT, Solution Start Date: 12/27/19 Status: Ordered Vitamin D 60869 iu oral capsule 50,000 International_Units, By Mouth, Daily, Refills 0, Maintenance, 02/02/22 13:24:00 EDT, Partialfill upon patient request if the prescription is for a schedule II opioid drug. Start Date: 02/02/22 Status: Ordered Problem List Condition Confirmation Course Effective Dates Status Health Status Informant Anxiety Confirmed Active Benign essential hypertension Confirmed Active 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, estrogen receptor positive Confirmed 06/2022 Active Glaucoma Confirmed Active Hypercholesterolemia Confirmed Active Hypothyroidism Confirmed Active Invasive ductal carcinoma of breast Confirmed Active Obese class I Confirmed Active Type II diabetes mellitus Confirmed Active Social History Social History Type Response Smoking Status Former smoker, quit more than 30 days ago entered on: 05/16/19 Sex Patient Care team information Care Team Personnel Name: Dionicio ANTON, Lucy Yanez Position: [facility] Associate Professional Member Role: PCP Address: Address: [address] [place] [id number]- Care Team Related Persons Name: ALBA TATE Address: home [address] [place] [address]
--- OUTSIDE RECORDS SUMMARY | 2023-11-15 15:24 | XMS_ITS | Continuity of Care Document ---
Author Organization [facility] Riccardo Ordonez Lalit lt Address [address] [place] [address]- Care Team Providers Care Payment Collector Name Role Phone Dionicio ANTON, Lucy Yanez Primary Care Physician Encounter [facility] Date(s): 08/08/22 - 09/07/22 [facility] Adult [address] [place] [address]- Allergies, Adverse Reactions, Alerts Substance Reaction Severity Status cefuroxime Active beta blockers Active Latex rash Active metFORMIN Diarrhea Active ALVARO inhibitors muscle pain Active Macrobid 1, 2 Active Bactrim Active 1Reports Macrobid causes inflammation in her lungs that presents as atypical pneumonia. 2inflammation of the lung Immunizations Given and Recorded Vaccine Date Status Refusal Reason influenza virus vaccine, inactivated 04/05/22 Boyd rded influenza virus vaccine, inactivated 04/28/21 Give n influenza virus vaccine, inactivated 04/22/20 Give n influenza virus vaccine, inactivated 04/09/19 Boyd rded influenza virus vaccine, inactivated 03/28/18 Boyd rded SARS-CoV-2 (COVID-19) mRNA-1273 vaccine 11/25/21 R ecorded [...] Ordered anastrozole 1 mg oral tablet 1 tablet = 1 mg, By Mouth, Daily, # 90 tablet, 0 Refills, Maintenance, 09/03/22 19:13:00 EST, Tablet, [facility]/pharmacy #[id number], Partial fill upon patient request if the prescription is for a schedule II opioid drug., 161, cm, 08/30/22 14:54:00 EST, Height,... Start Date: 09/03/22 Status: Ordered Collagen 0 Refills, Maintenance, 02/02/22 13:24:00 EDT, Partial fill upon patient request if the prescription is for a schedule II opioid drug. Start Date: 02/02/22 Status: Ordered esomeprazole 20 mg oral enteric coated capsule 1 capsule, By Mouth, Daily, # 90 capsule, 0 Refills, Maintenance, 09/05/22 13:30:00 EST, [facility]pharmacy #[id number], 161, cm, 08/30/22 14:54:00 EST, Height, 88.9, kg, 08/30/22 14:54:00 EST, Dry Weight Start Date: 09/05/22 Status: Ordered glipiZIDE 5 mg oral tablet 15 mg, 3, tablet, By Mouth, Daily, # 270 tablet, Refills 1, Tot. Refills 1, Maintenance, 09/02/22 11:56:00 EST, Route to Pharmacy Electronically, [facility]/pharmacy #[id number], Partial fill upon patient requestif the prescription is for a schedule II opioid kraig... Start Date: 09/02/22 Stop Date: 03/01/23 Status: Ordered hydrochlorothiazide-triamterene 25 mg-37.5 mg oral capsule 1 capsule, By Mouth, Daily, # 90 capsule, 1 Refills, Maintenance, 09/02/22 11:55:00 EST, [facility]/pharmacy #[id number], 0, 1 capsule By Mouth Daily, 161, cm, 08/30/22 14:54:00 EST, Height, 88.9, kg, 08/30/22 14:54:00 EST, Dry Weight Start Date: 09/02/22 Status: Ordered levothyroxine 0.05 mg oral tablet See Instructions, TAKE 1 TABLET DAILY, TAKE 2 TABLETS ON MONDAY, # 102 tablet, 0 Refills, 09/05/22 13:30:00 EST, [facility]/pharmacy #[id number], 161, cm, 08/30/22 14:54:00 EST, Height, 88.9, kg, 08/30/22 14:54:00 EST, Dry Weight Start Date: 09/05/22 Status: Ordered loratadine 10 mg oral tablet 1, tablet, By Mouth, Daily, # 90 tablet, Refills 1, Route to Pharmacy Electronically, [id number], 161.5, cm, 08/16/21 14:16:00 EST, Height Start Date: 09/03/21 Status: Ordered LORazepam 0.5 mg oral tablet 1 tablet = 0.5 mg, By Mouth, Daily at bedtime, for 30 days, # 30 tablet, 2 Refills, Acute 10/17/22 8:19:00 EDT, 07/19/22 8:19:00 EST, [facility], 161.3, cm, 07/15/22 9:49:00 EST, Height, 88, kg, 02/02/22 13:19:00 EDT, Dry Weight Start Date: 07/19/22 Stop Date: 10/17/22 Status: Ordered losartan 50 mg oral tablet 1 tablet, By Mouth, Daily, # 90 tablet, 3 Refills, [facility], 161.5, cm, 11/11/21 12:28:00 EDT, Height Start Date: 01/19/22 Status: Ordered Magnesium Magnesium, 0 Refills, Maintenance, 02/02/22 13:23:00 EDT Start Date: 02/02/22 Status: Ordered Multivitamin Daily, 0 Refills, Maintenance, 02/21/20 10:55:00 EDT Start Date: 02/21/20 Status: Ordered [place]mar-3 oral capsule See Instructions, one daily, 0 [...] EDT, Height Start Date: 03/10/20 Status: Ordered Probiotic Probiotic, 0 Refills, Maintenance, 02/02/22 13:23:00 EDT Start Date: 02/02/22 Status: Ordered rosuvastatin 10 mg oral tablet 1 tablet, By Mouth, Daily, # 90 tablet, 1 Refills, Maintenance, 07/13/22 22:04:00 EST, [facility], 161.3, cm, 07/08/22 13:50:00 EST, Height, 88, kg, 02/02/22 13:19:00 EDT, Dry Weight Start Date: 07/13/22 Status: Ordered timolol maleate 0.5% ophthalmic solution 1 drops, Eyes, Both, 2 times a day, # 10 mL, 0 Refills, Maintenance, 12/27/19 10:36:00 EDT, Solution Start Date: 12/27/19 Status: Ordered Vitamin C By Mouth, Daily, 0 Refills, Maintenance, 02/02/22 13:23:00 EDT, Partial fill upon patient request if the prescription is for a schedule II opioid drug. Start Date: 02/02/22 Status: Ordered Vitamin D 00343 iu oral capsule 50,000 International_Units, By Mouth, [...] Personnel Name: Dionicio ANTON, Lucy Yanez [facility] Associate Professional Member Role: PCP Address: Address: [address] [place] [address] [place] [address]- Care Team Related Persons Name: ALBA TATE Address: [address] [place] [address]
--- OUTSIDE RECORDS SUMMARY | 2023-11-15 15:24 | XMS_ITS | Continuity of Care Document ---
Author Organization [facility] José Luis Lalit lt Address [address] [place] [address]- Care Team Providers Care Roll Forming Machine Set Up Mechanic Name Role Phone Dionicio ANTON, Lucy Yanez Primary Care Physician [phone] [place] [facility] [place]22 [facility] José Luis Adult [address] [place] [address]- Allergies, Adverse Reactions, Alerts Substance Reaction Severity [...] EDT, Supply Start Date: 01/28/21 Status: Ordered Collagen 0 Refills, Maintenance, 02/02/22 13:24:00 EDT, Partial fill upon patient request if the prescription is for a schedule II opioid drug. Start Date: 02/02/22 Status: Ordered esomeprazole 20 mg oral enteric coated capsule 1 capsule, By Mouth, Daily, # 90 capsule, 0 Refills, Maintenance, 07/17/22 15:34:00 EST, [facility], 161.3, cm, 07/15/22 9:49:00 EST, Height, 88, kg, 02/02/22 13:19:00 EDT, Dry Weight Start Date: 07/17/22 Status: Ordered glipiZIDE 5 mg oral tablet 15 mg, 3, tablet, By Mouth, Daily, # 270 tablet, Refills 1, Tot. Refills 1, Maintenance, 07/22/22 14:06:00 EST, Route to Pharmacy Electronically, [facility], Partial fill upon patient request if the prescription is for a schedul... Start Date: 07/22/22 Stop Date: 01/18/23 Status: Ordered hydrochlorothiazide-triamterene 25 mg-37.5 mg oral capsule 1 capsule, By Mouth, Daily, # 90 capsule, 1 Refills, Maintenance, 07/17/22 15:35:00 EST, [facility], 0, 1 capsule By Mouth Daily, 161.3, cm, 07/15/22 9:49:00 EST, Height, 88, kg, 02/02/22 13:19:00 EDT, Dry Weight Start Date: 07/17/22 Status: Ordered levothyroxine 0.05 mg oral tablet See Instructions, TAKE 1 TABLET DAILY, TAKE 2 TABLETS ON MONDAY, # 102 tablet, 3 Refills, 10/11/21 11:14:00 EDT, [facility], 161.5, cm, 10/11/21 10:53:00 EDT, Height Start Date: 10/11/21 Status: Ordered loratadine 10 mg oral tablet 1, tablet, By Mouth, Daily, # 90 tablet, Refills 1, Route to Pharmacy Electronically, [id number], 161.5, cm, 08/16/21 14:16:00 EST, Height Start Date: 09/03/21 Status: Ordered LORazepam 0.5 mg oral tablet 1 tablet = 0.5 mg, By Mouth, Daily at bedtime, for 30 days, # 30 tablet, 2 Refills, Acute 10/17/22 8:19:00 EDT, 07/19/22 8:19:00 EST, [facility], 161.3, cm, 07/15/22 9:49:00 EST, [...] 10:55:00 EDT Start Date: 02/21/20 Status: Ordered Mammoth-3 oral capsule See Instructions, one daily, 0 [...] EDT, Height Start Date: 03/10/20 Status: Ordered oxyCODONE 5 mg oral tablet 5 mg, 1, tablet, By Mouth, Every 6 hours, PRN, # 5 tablet, Refills 0, Tot. Refills 0, Maintenance, as needed for pain, 08/10/22 9:47:00 EST, Route to Pharmacy Electronically, [facility]/pharmacy #[id number], Partial fill upon patient request if the prescription is... Start Date: 08/10/22 Status: Ordered Probiotic Probiotic, 0 Refills, Maintenance, [...] Start Date: 02/02/22 Status: Ordered Vitamin D 18426 iu oral capsule 50,000 International_Units, By Mouth, [...] Personnel Name: Dionicio ANTON, Lucy Yanez Position: [facility] PCO Associate Professional Member Role: PCP Address: Address: [address] [place] [address]- Care Team Related Persons Name: ALBA TATE Address: home [address] [place] [address]
--- OUTSIDE RECORDS SUMMARY | 2023-11-15 15:24 | XMS_ITS | Continuity of Care Document ---
Author Organization [facility] José Luis Lalit lt Address [address] [place] [address]- Care Team Providers Care High Pressure Boiler Operator Name Role Phone Dionicio ANTON, Lucy Yanez Primary Care Physician [phone] [place] [facility] [place]/02/20 - 08/01/20 [facility] Recluse Adult [address] [place] [address]- Allergies, Adverse Reactions, Alerts Substance Reaction Severity Status cefuroxime Active Macrobid 1, 2 Active Latex rash Active ALVARO inhibitors muscle pain Active 1Reports Macrobid causes inflammation in her lungs that presents as atypical pneumonia. 2inflammation of the lung Immunizations Given and Recorded Vaccine Date Status Refusal Reason influenza virus vaccine, inactivated 04/22/20 Give n Medications aspirin 81 mg oral delayed release tablet 81 mg, 1, tablet, By Mouth, Daily, # 30 tablet, Refills 0, Maintenance, 02/21/20 10:55:00 EDT Start Date: 02/21/20 Status: Ordered Claritin 10 mg oral tablet 10 mg, 1, tablet, By Mouth, Daily, # 90 tablet, Refills 3, Tot. Refills 3, Maintenance, 01/14/20 11:30:00 EDT, Route to Pharmacy Electronically, [facility], 161.5, cm, 01/07/20 15:02:00 EDT, Height Start Date: 01/14/20 Status: Ordered Crestor 10 mg oral tablet 1 tablet = 10 mg, By Mouth, Daily, # 90 tablet, 3 Refills, Maintenance, 01/14/20 11:33:00 EDT, Tablet, [facility], 161.5, cm, 01/07/20 15:02:00 EDT, Height Start Date: 01/14/20 Status: Ordered hydrochlorothiazide-triamterene 25 mg-37.5 mg oral capsule 1 capsule, By Mouth, Daily, # 90 capsule, 3 Refills, Maintenance, 01/14/20 11:28:00 EDT, Capsule, [facility], 1 capsule By Mouth Daily, 161.5, cm, 01/07/20 15:02:00 EDT, Height Start Date: 01/14/20 Status: Ordered levothyroxine 0.05 mg oral tablet 1 tablet = 50 mcg, By Mouth, Daily, recheck tsh level in 6 weeks, # 90 tablet, 1 Refills, Maintenance, 07/15/20 12:03:00 EST, [facility], 161.5, cm, 07/01/20 9:54:00 EST, Height Start Date: 07/15/20 Status: Ordered losartan 50 mg oral tablet 50 mg, 1, tablet, By Mouth, Daily, # 90 tablet, Refills 3, Tot. Refills 3, Maintenance, 01/14/20 11:31:00 EDT, Route to Pharmacy Electronically, [facility], 161.5, cm, 01/07/20 15:02:00 EDT, Height Start Date: 01/14/20 Status: Ordered metFORMIN 500 mg oral tablet, extended release See Instructions, take 2 in the morning and one in the evening, # 90 tablet, 3 Refills, Maintenance, 07/02/20 12:22:00 EST, [facility]/pharmacy #[id number], 161.5, cm, 07/01/20 9:54:00 EST, Height Start Date: 07/02/20 Status: Ordered Multivitamin Daily, 0 Refills, Maintenance, 02/21/20 10:55:00 EDT Start Date: 02/21/20 Status: Ordered Nexium Capsule See Instructions, 22 mg 1 every other day, Refills 0, Maintenance, 05/06/19 16:33:27 EDT, Instructions Replace Required Details Start Date: 05/06/19 Status: Ordered Wesley-3 oral capsule See Instructions, one daily, 0 [...]
--- OUTSIDE RECORDS SUMMARY | 2023-11-15 15:24 | XMS_ITS | Continuity of Care Document ---
Author Organization [facility] José Luis Lalit lt Address [address] [place] [address]- Care Team Providers Care Therapeutic Recreation Assistant Name Role Phone Dionicio ANTON, Lucy Yanez Primary Care Physician Encounter [facility] Date(s): 05/22/23 - 06/21/23 [facility] José Luis Adult [address] [place] [address]- Allergies, Adverse Reactions, Alerts Substance Reaction Severity Status cefuroxime Active beta blockers Active Macrobid 1, 2 Active Bactrim Active Latex rash Active ALVARO inhibitors muscle pain Active metFORMIN Diarrhea Active 1Reports Macrobid causes inflammation in her lungs that presents as atypical pneumonia. 2inflammation of the lung Immunizations Given and Recorded Vaccine Date Status Refusal Reason pneumococcal 20-valent conjugate vaccine 06/09/23 Recorded RSV vaccine preF3, recombinant 05/28/23 Recorded Influenza Virus Vaccine (oldterm) 1 04/19/23 Recor ded SARS-CoV-2 mRNA ([id number]) vax 2 04/19/23 Recorded influenza virus vaccine, inactivated 04/05/22 Boyd rded influenza virus vaccine, inactivated 04/28/21 Give n influenza virus vaccine, inactivated 04/22/20 Give n influenza virus vaccine, inactivated 04/09/19 Boyd rded influenza virus vaccine, inactivated 03/28/18 Boyd rded [id number] bivalent booster vax 04/02/22 Recorded SARS-CoV-2 (COVID-19) mRNA-1273 vaccine 11/25/21 R ecorded SARS-CoV-2 (COVID-19) mRNA BNT-162b2 vac 04/22/21 Recorded SARS-CoV-2 (COVID-19) mRNA BNT-162b2 vac 09/09/20 Given SARS-CoV-2 (COVID-19) mRNA BNT-162b2 vac 08/19/20 Recorded zoster vaccine, inactivated 04/06/19 Recorded 1Result Comment: [facility] [place] 2Result Comment: [facility] [place] Medications Accu-Chek Paradise Glucose Meter See Instructions, [...] tablet, 1 Refills, Maintenance, 04/09/23 17:21:00 EDT, [facility], 161, cm, 02/22/23 11:03:00 EDT, Height, 86.9, kg, 10/28/22 13:31:00 EDT, Dry Weight Start Date: 04/09/23 Status: Ordered esomeprazole 20 mg oral enteric coated capsule 1 capsule, By Mouth, Daily, # 90 capsule, 3 Refills, Maintenance, 01/27/23 9:13:00 EDT, [facility], 161, cm, 10/28/22 13:31:00 EDT, Height, 86.9, kg, 10/28/22 13:31:00 EDT, DryWeight Start Date: 01/27/23 Status: Ordered GlipiZIDE XL 10 mg oral tablet, extended release 2 tablet = 20 mg, By Mouth, Daily, # 180 tablet, 1 Refills, Maintenance, 02/16/23 6:50:00 EDT, [facility], Partial fill upon patient request if the prescription is for a schedule II opioid drug., 161, cm, 02/07/23 11:15:00 EDT,... Start Date: 02/16/23 Status: Ordered hydrochlorothiazide-triamterene 25 mg-37.5 mg oral capsule 1 capsule, By Mouth, Daily, # 90 capsule, 1 Refills, Maintenance, 04/06/23 8:40:00 EDT, [facility], 90, TAKE 1 [...] Acute 07/20/23 6:50:00 EST, 04/21/23 6:50:00 EDT, [facility], 161, cm, 02/22/23 11:03:00 EDT, Height, 86.9, kg, 10/28/22 13:31:00 EDT, Dry Weight Start Date: 04/21/23 Stop Date: 07/20/23 Status: Ordered losartan 50 mg oral tablet 1 tablet, By Mouth, Daily, for 90 days, # 90 tablet, 1 Refills, Physician Stop 02/29/24 11:33:00 EDT, 09/02/23 11:33:00 EST, [facility], 161, cm, 02/22/23 11:03:00 EDT, Height,86.9, [...] MONDAY, # 102 tablet, 1 Refills, Maintenance, 06/20/23 10:22:00 EST, [facility], 161, cm, 05/16/23 10:58:00 EDT, Height, 84.7, kg, 05/04/23 15:05:00 EDT, Dry Weight Start Date: 06/20/23 Status: Ordered timolol maleate 0.5% ophthalmic solution 1 drops, Eyes, Both, 2 times a day, # 10 mL, 0 Refills, Maintenance, 12/27/19 10:36:00 EDT, Solution Start Date: 12/27/19 Status: Ordered Vitamin D 84359 iu oral capsule 50,000 International_Units, By Mouth, [...] Personnel Name: Dionicio ANTON, Lucy Yanez Position: [facility] PCO Associate Professional Member Role: PCP Address: Address: [address] [place] [address]- Care Team Related Persons Name: ALBA TATE Address: [address] [place] [address]
--- OUTSIDE RECORDS SUMMARY | 2023-11-15 15:24 | XMS_ITS | Continuity of Care Document ---
Author Organization [facility] José Luis Lalit lt Address [address] [place] [address]- Care Team Providers Care Flatwork Washer Name Role Phone Dionicio ANTON, Lucy Yanez Primary Care Physician Encounter [facility] Date(s): 04/27/21 - 05/27/21 [facility] Riccardo Ordonez Adult [address] [place] [address]- Allergies, Adverse Reactions, Alerts Substance Reaction Severity [...] 03/08/21 9:39:00 EDT, Route to Pharmacy Electronically, [facility]/pharmacy #[id number], 161.5, cm, 12/30/20 11:09:00 EDT, Height [...] Required Details Start Date: 05/06/19 Status: Ordered Bulger-3 oral capsule See Instructions, one daily, 0 [...]
--- OUTSIDE RECORDS SUMMARY | 2023-11-15 15:24 | XMS_ITS | Continuity of Care Document ---
Author Organization [facility] Address [address] [facility] [place] [address]- Care Team Providers Care Station Air Traffic Control Specialist Name Role Phone Dionicio ANTON, Lucy Yanez Primary Care Physician Encounter 10/19/22 - 10/26/22 [facility] [address], [address] [place] [address]- Attending Physician: Kris Noe DO Admitting Physician: Kris Noe DO Referring Physician: Kris Noe DO Allergies, Adverse Reactions, Alerts Substance Reaction Severity [...] 0 Refills, Maintenance, 09/03/22 19:13:00 EST, Tablet, [facility]/pharmacy #[id number], Partial fill upon patient request [...] Daily, # 90 capsule, 0 Refills, Maintenance, 09/08/22 10:27:00 EST, [facility], 161, cm, 08/30/22 14:54:00 EST, Height, 88.9, kg, 08/30/22 14:54:00 EST, Dry Weight Start Date: 09/08/22 Status: Ordered glipiZIDE 5 mg oral tablet 15 mg, 3, tablet, By Mouth, Daily, for 90 days, # 270 tablet, Refills 1, Tot. Refills 1, Hard Stop 03/01/23 11:56:00 EDT, 09/02/22 11:56:00 EST, [id number] Partial fill upon patient request if the prescriptio... Start Date: 09/02/22 Stop Date: 03/01/23 Status: Ordered glipiZIDE 5 mg oral tablet 15 mg, 3, tablet, By Mouth, Daily, # 270 tablet, Refills 1, Tot. Refills 1, Maintenance, 03/01/23 11:56:00 EDT, Route to Pharmacy Electronically, [facility], Partial fill upon patient request if the prescription is for a schedul... Start Date: 03/01/23 Stop Date: 08/28/23 Status: Ordered hydrochlorothiazide-triamterene 25 mg-37.5 mg oral capsule 1 capsule, By Mouth, Daily, # 90 capsule, 1 Refills, Maintenance, 09/08/22 10:28:00 EST, [facility], 0, 1 capsule By Mouth Daily, 161, cm, 08/30/22 14:54:00 EST, Height, 88.9, kg, 08/30/22 14:54:00 EST, Dry Weight Start Date: 09/08/22 Status: Ordered levothyroxine 0.05 mg oral tablet See Instructions, TAKE 1 TABLET DAILY, TAKE 2 TABLETS ON MONDAY, # 102 tablet, 0 Refills, 09/08/22 10:27:00 EST, [facility], 161, cm, 08/30/22 14:54:00 EST, Height, 88.9, kg, 08/30/22 14:54:00 EST, Dry Weight Start Date: 09/08/22 Status: Ordered loratadine 10 mg oral tablet 1, tablet, By Mouth, Daily, # 90 tablet, Refills 1, Route to Pharmacy Electronically, [id number], 161.5, cm, 08/16/21 14:16:00 EST, Height Start Date: 09/03/21 Status: Ordered losartan 50 mg oral tablet 1 tablet, By Mouth, Daily, # 90 tablet, 3 Refills, 09/08/22 10:28:00 EST, [facility], 161, cm, 08/30/22 14:54:00 EST, Height, 88.9, kg, 08/30/22 14:54:00 EST, Dry Weight Start Date: 09/08/22 Status: Ordered Magnesium Magnesium, 0 Refills, Maintenance, 02/02/22 13:23:00 EDT Start Date: 02/02/22 Status: Ordered Multivitamin Daily, 0 Refills, Maintenance, 02/21/20 10:55:00 EDT Start Date: 02/21/20 Status: Ordered [place]-3 oral capsule See Instructions, one daily, 0 [...] Daily, # 90 tablet, 1 Refills, Maintenance, 09/08/22 10:29:00 EST, [facility], 161, cm, 08/30/22 14:54:00 EST, Height, 88.9, kg, 08/30/22 14:54:00 EST, Dry Weight Start Date: 09/08/22 Status: Ordered timolol maleate 0.5% ophthalmic solution 1 drops, Eyes, Both, 2 times a day, # 10 mL, 0 Refills, Maintenance, 12/27/19 10:36:00 EDT, Solution Start Date: 12/27/19 Status: Ordered Vitamin C By Mouth, Daily, 0 Refills, Maintenance, 02/02/22 13:23:00 EDT, Partial fill upon patient request if the prescription is for a schedule II opioid drug. Start Date: 02/02/22 Status: Ordered Vitamin D 63245 iu oral capsule 50,000 International_Units, By Mouth, [...] Active Type II diabetes mellitus Confirmed Active Results Radiology Reports * Exam Date Time Procedure Performing Provider Status 10/19/22 10:42 AM Dexa Bone Density (Axial) Yesy Fraire; Auth (Verified) Notes: (Dexa Bone Density (Axial)) Reason For Exam: screening for osteoporosis;Screening for Osteoporosis RESULT: DEXA BONE DENSITY (AXIAL) Bone Density Report Name: RENEE TATE Age: 82 Sex: Female Ethnicity: White Date of : 1940 Indication: POSTMENOPAUSAL. Referring Provider: KRIS NOE Study: Bone densitometry was performed. Exam Date: October 19, 2022 Accession number: [id number] Bone Density: Region BMD T-score Z-score Classification AP Spine(L1-L4) 1.304 2.3 5.0 Normal Femoral Neck (Left) 0.904 0.5 2.8 Normal Total Hip (Left) 1.032 0.7 2.8 Normal World Health Organization criteria for BMD impression classify patients as: Normal (T-score at or above -1.0), Osteopenia (T-score between -1.0 and -2.5), or Osteoporosis (T-score at or below -2.5). 10-year Fracture Risk: FRAX not reported because: All T-scores at or above -1.0 Previous Exams: Region Exam Age BMD T-score BMD Change BMD Change Date g/cm2 vs Baseline vs Previous AP Spine(L1-L4) 10/19/2022 82 1.304 2.3 2.6%* 2.6%* 01/29/2020 79 1.271 2.0 Total Hip(Left) 10/19/2022 82 1.032 0.7 -4.5%* -4.5%* 01/29/2020 79 1.080 1.1 Femoral Neck(Left) 10/19/2022 82 0.904 0.5 -1.4% -1.4% 01/29/2020 79 0.917 0.6 *Denotes significance at 95% confidence level, LSC for AP Spine = 0.022 g/cm2, LSC for Total Hip = 0.027 g/cm2 Clinical Information Provided by Patient: Has used the following medications: HRT (i.e. estrogen/hormone therapy), Vitamin D Patient maximum height was 65.0 Menopause Age: 57 Onset of menses at age 14 Number of children 3 Impression: The patient has normal bone density as determined by WHO criteria Reported by: Zafar Hamlin M.D. on 10/20/2022 2:39:00 PM. Dictated By: Zafar Hamlin MD Dictated Date/Time: 10/20/22 2:40 pm Reviewed By: Zafar Hamlin MD Signed By: Zafar Hamlin MD Signed Date/Time: 10/20/22 2:40 pm Transcribed By: RADHA Transcribed Date/Time: 10/20/22 2:40 pm Social History Social History Type Response Smoking Status Former smoker, quit more than 30 days ago entered on: 05/16/19 Sex DXA Skeletal system.axial Views for bone density * BHSPowerscribe , CIS S: TRANSCRIBE MIMISPowerscrideanna , CIS S: TRANSCRIBE, VERIFY Zafar Hamlin MD: VERIFY, VERIFY Zafar Hamlin MD: VERIFY Event Display: Result: Authored Date: [id number] Bone Density Report Name: RENEE TATE Age: 82 Sex: Female Ethnicity: White Date of : 1940 Indication: POSTMENOPAUSAL. Referring Provider: KRIS NOE Study: Bone densitometry was performed. Exam Date: October 19, 2022 Accession number: [id number] Bone Density: Region BMD T-score Z-score Classification AP Spine(L1-L4) 1.304 2.3 5.0 Normal Femoral Neck (Left) 0.904 0.5 2.8 Normal Total Hip (Left) 1.032 0.7 2.8 Normal World Health Organization criteria for BMD impression classify patients as: Normal (T-score at or above -1.0), Osteopenia (T-score between -1.0 and -2.5), or Osteoporosis (T-score at or below -2.5). 10-year Fracture Risk: FRAX not reported because: All T-scores at or above -1.0 Previous Exams: Region Exam Age BMD T-score BMD Change BMD Change Date g/cm2 vs Baseline vs Previous AP Spine(L1-L4) 10/19/2022 82 1.304 2.3 2.6%* 2.6%* 01/29/2020 79 1.271 2.0 Total Hip(Left) 10/19/2022 82 1.032 0.7 -4.5%* -4.5%* 01/29/2020 79 1.080 1.1 Femoral Neck(Left) 10/19/2022 82 0.904 0.5 -1.4% -1.4% 01/29/2020 79 0.917 0.6 *Denotes significance at 95% confidence level, LSC for AP Spine = 0.022 g/cm2, LSC for Total Hip = 0.027 g/cm2 Clinical Information Provided by Patient: Has used the following medications: HRT (i.e. estrogen/hormone therapy), Vitamin D Patient maximum height was 65.0 Menopause Age: 57 Onset of menses at age 14 Number of children 3 Impression: The patient has normal bone density as determined by WHO criteria Reported by: Zafar Hamlin M.D. on 10/20/2022 2:39:00 PM. Dictated By: Zafar Hamlin MD Dictated Date/Time: 10/20/22 2:40 pm Reviewed By: Zafar Hamlin MD Signed By: Zafar Hamlin MD Signed Date/Time: 10/20/22 2:40 pm Transcribed By: RADHA Transcribed Date/Time: 10/20/22 2:40 pm Patient Care team information Care Team Personnel Name: Dionicio ANTON, Lucy Yanez Position: [facility] PCO Associate Professional Member Role: PCP Address: Address: [address] [place] [address]- Care Team Related Persons Name: ALBA TATE Address: [address] [place] [address]
--- OUTSIDE RECORDS SUMMARY | 2023-11-15 15:24 | XMS_ITS | Continuity of Care Document ---
Author Organization [facility] José Luis Lalit lt Address [address] [place] [address]- Care Team Providers Care Wedding Florist Name Role Phone Dionicio ANTON, Lucy Yanez Primary Care Physician Encounter [facility] [place] Date(s): 02/21/20 - 03/22/20 [facility] José Luis Adult [address] [place] [address]- [facility] Attending Physician: Admtr, [id number] Admitting Physician: Admtr, Damián Referring Physician: Admtr, Ar8 Allergies, Adverse Reactions, Alerts Substance Reaction Severity Status Macrobid 1, 2 Active Latex rash Active ALVARO inhibitors muscle pain Active 1Reports Macrobid causes inflammation in her lungs that presents as atypical pneumonia. 2inflammation of the lung Medications aspirin 81 mg oral delayed release [...] weeks, # 90 tablet, 1 Refills, Maintenance, 02/10/20 12:07:00 EDT, [facility], 161.5, cm, 01/07/20 15:02:00 EDT, Height Start Date: 02/10/20 Stop Date: 03/11/20 Status: Ordered LORazepam 0.5 mg oral tablet 1 tablet = 0.5 mg, By Mouth, Daily at bedtime, for 30 days, # 30 tablet, 1 Refills, Acute 04/10/20 8:57:00 EDT, 02/10/20 8:57:00 EDT, [facility], 161.5, cm, 01/07/20 15:02:00 EDT, Height Start Date: 02/10/20 Stop Date: 04/10/20 Status: Ordered losartan 50 mg oral tablet 50 mg, 1, tablet, By Mouth, Daily, # 90 tablet, Refills 3, Tot. Refills 3, Maintenance, 01/14/20 11:31:00 EDT, Route to Pharmacy Electronically, [facility], 161.5, cm, 01/07/20 15:02:00 EDT, Height Start Date: 01/14/20 Status: Ordered metFORMIN 500 mg oral tablet, extended release 1 tablet = 500 mg, By Mouth, 2 times a day, replace short acting, # 180 tablet, 3 Refills, Maintenance, 01/14/20 11:32:00 EDT, [facility], 161.5, cm, 01/07/20 15:02:00 EDT, Height Start Date: 01/14/20 Status: Ordered Multivitamin Daily, 0 Refills, Maintenance, 02/21/20 10:55:00 EDT Start Date: 02/21/20 Status: Ordered Nexium Capsule See Instructions, 22 mg 1 every other day, Refills 0, Maintenance, 05/06/19 16:33:27 EDT, Instructions Replace Required Details Start Date: 05/06/19 Status: Ordered [place]-3 oral capsule See Instructions, one daily, 0 [...]
--- OUTSIDE RECORDS SUMMARY | 2023-11-15 15:24 | XMS_ITS | Continuity of Care Document ---
[facility] Organization [facility] Address [address] [facility], [address] [place] [address]- Care Team Providers Care Services Manager Name Role Phone Dionicio ANTON, Lucy Yanez Primary Care Physician Encounter [facility] [place] Date(s): 03/24/22 - 04/23/22 [facility] Leisa Mcghees [facility] [address], [address] [place] [address]- Allergies, Adverse Reactions, Alerts Substance Reaction Severity Status cefuroxime Active beta blockers Active Macrobid 1, 2 Active Latex rash [...] opioid drug. Start Date: 02/02/22 Status: Ordered Estrace Vaginal Cream 0.1 mg/g See Instructions, 1 Gm Vaginally 2 tmes per week, # 42 Gm, 3 Refills, Maintenance, 02/02/22 13:38:00 EDT, [facility], Partial fill upon patient request if the prescription is for aschedule II opioid drug., 161.3, cm, 02/02/22 13:1... Start Date: 02/02/22 Status: Ordered glipiZIDE 10 mg oral tablet, extended release 1 tablet = 10 mg, By Mouth, Daily, replace 5mg, # 90 tablet, 1 Refills, Maintenance, 02/14/22 8:01:00 EDT, ER Tablet, [facility], Partial fill upon patient request if the prescription is for a schedule II opioid drug., 161.3, cm, 07... Start Date: 02/14/22 Status: Ordered hydrochlorothiazide-triamterene 25 mg-37.5 mg oral capsule 1 capsule, By Mouth, Daily, # 90 capsule, 1 Refills, [facility], 0, TAKE 1 CAPSULE DAILY, 161.5, cm, 01/19/22 11:39:00 EDT, Height Start Date: 01/24/22 Status: Ordered Januvia 50 mg oral tablet 1 tablet = 50 mg, By Mouth, Daily, # 30 tablet, 3 Refills, Maintenance, 04/14/22 9:45:00 EDT, Tablet, [facility], Partial fill upon patient request if the prescription is for a schedule II opioid drug., 161.3, cm, 04/14/22 9:25:00 E... Start Date: 04/14/22 Stop Date: 08/12/22 Status: Ordered levothyroxine 0.05 mg oral tablet See Instructions, TAKE 1 TABLET DAILY, TAKE 2 TABLETS ON MONDAY, # 102 tablet, 3 Refills, 10/11/21 11:14:00 EDT, [facility], 161.5, cm, 10/11/21 10:53:00 EDT, Height Start Date: 10/11/21 Status: Ordered loratadine 10 mg oral tablet 1, tablet, By Mouth, Daily, # 90 tablet, Refills 1, Route to Pharmacy Electronically, [id number], 161.5, cm, 08/16/21 14:16:00 EST, Height Start Date: 09/03/21 Status: Ordered LORazepam 0.5 mg oral tablet 1 tablet = 0.5 mg, By Mouth, Daily at bedtime, for 30 days, # 30 tablet, 1 Refills, Acute 06/14/22 6:52:00 EST, 04/15/22 6:52:00 EDT, [facility], 161.3, cm, 04/14/22 9:25:00 EDT, Height, 88, kg, 02/02/22 13:19:00 EDT, Dry Weight Start Date: 04/15/22 Stop Date: 06/14/22 Status: Ordered losartan 50 mg oral tablet 1 tablet, By Mouth, Daily, # 90 tablet, 3 Refills, [facility], 161.5, cm, 11/11/21 12:28:00 EDT, Height Start Date: 01/19/22 Status: Ordered Magnesium Magnesium, 0 Refills, Maintenance, 02/02/22 13:23:00 EDT Start Date: 02/02/22 Status: Ordered Multivitamin Daily, 0 Refills, Maintenance, 02/21/20 10:55:00 EDT Start Date: 02/21/20 Status: Ordered [place]-3 oral capsule See Instructions, one daily, 0 [...] Mouth, Daily, # 90 tablet, 1 Refills, [facility], 161.5, cm, 11/11/21 12:28:00 EDT, Height Start Date: 01/14/22 Status: Ordered timolol maleate 0.5% ophthalmic solution 1 drops, Eyes, Both, 2 times a day, # 10 mL, 0 Refills, Maintenance, 12/27/19 10:36:00 EDT, Solution Start Date: 12/27/19 Status: Ordered Vitamin C By Mouth, Daily, 0 Refills, Maintenance, 02/02/22 13:23:00 EDT, Partial fill upon patient request if the prescription is for a schedule II opioid drug. Start Date: 02/02/22 Status: Ordered Vitamin D 44337 iu oral capsule 50,000 International_Units, By Mouth, Daily, Refills 0, Maintenance, 02/02/22 13:24:00 EDT, Partialfill upon patient request if the prescription is for a schedule II opioid drug. Start Date: 02/02/22 Status: Ordered Problem List Condition Confirmation Course Effective Dates Status Health Status Informant Anxiety Confirmed Active Benign essential hypertension Confirmed Active Glaucoma Confirmed Active Hypercholesterolemia Confirmed Active Hypothyroidism Confirmed Active Obese class I Confirmed Active Type II diabetes mellitus Confirmed Active Social History Social History Type Response Smoking Status Former smoker, quit more than 30 days ago entered on: 05/16/19 Sex Patient Care team information Personnel Name: Dionicio ANTON, Lucy Yanez Address: Address: [address] [place] [id number]
--- OUTSIDE RECORDS SUMMARY | 2023-11-15 15:25 | XMS_ITS | Continuity of Care Document ---
Author Organization [facility] José Luis Lalit lt Address [address] [place] [address]- Care Team Providers Care Map Colorer Name Role Phone Dionicio ANTON, Lucy Yanez Primary Care Physician Encounter [facility] [place] Date(s): 12/14/21 - 01/13/22 [facility] Riccardo Ordonez Adult [address] [place] [address]- Allergies, Adverse Reactions, Alerts Substance Reaction Severity [...] tablet, 3 Refills, 10/11/21 11:14:00 EDT, [facility], 161.5, cm, 10/11/21 10:53:00 EDT, Height Start Date: 10/11/21 Status: Ordered loratadine 10 mg oral tablet 1, tablet, By Mouth, Daily, # 90 tablet, Refills 1, Route to Pharmacy Electronically, [id number], 161.5, cm, 08/16/21 14:16:00 EST, Height Start Date: 09/03/21 Status: Ordered losartan 50 mg oral tablet 50 mg, 1, tablet, By Mouth, Daily, # 90 tablet, Refills 3, Tot. Refills 3, Maintenance, 12/30/20 11:48:00 EDT, Route to Pharmacy Electronically, [facility], 161.5, cm, 12/30/20 11:09:00 EDT, Height Start Date: 12/30/20 Status: Ordered Multivitamin Daily, 0 Refills, Maintenance, 02/21/20 10:55:00 EDT Start Date: 02/21/20 Status: Ordered Nexium 20 mg oral enteric coated capsule 1 capsule = 20 mg, By Mouth, Daily, # 90 capsule, 1 Refills, Maintenance, 09/13/21 9:37:00 EST, EC Capsule, [facility], Partial fill upon patient request if the prescription is fora schedule II opioid drug., 161.5, cm, 09/13/21 8:5... Start Date: 09/13/21 Status: Ordered Nexium Capsule See Instructions, 22 mg 1 every other day, Refills 0, Maintenance, 05/06/19 16:33:27 EDT, Instructions Replace Required Details Start Date: 05/06/19 Status: Ordered [place]-3 oral capsule See Instructions, one daily, 0 [...]
--- OUTSIDE RECORDS SUMMARY | 2023-11-15 15:25 | XMS_ITS | Continuity of Care Document ---
Author Organization [facility] José Luis Lalit lt Address [address] [place] [address]- Care Team Providers Care Intrusion Analyst Name Role Phone Dionicio ANTON, Lucy Yanez Primary Care Physician Encounter [facility] Date(s): 12/06/22 - 01/05/23 [facility] Riccardo Ordonez Adult [address] [place] [address]- Allergies, Adverse Reactions, Alerts Substance Reaction Severity [...] tablet, By Mouth, Daily, # 90 tablet, 0 Refills, Maintenance, 10/31/22 11:47:00 EDT, [id number], 161, cm, 10/28/22 13:31:00 EDT, Height, 86.9, kg, 10/28/22 13:31:00 EDT, Dry Weight Start Date: 10/31/22 Status: Ordered Collagen 0 Refills, Maintenance, 02/02/22 13:24:00 EDT, Partial fill upon patient request if the prescription is for a schedule II opioid drug. Start Date: 02/02/22 Status: Ordered esomeprazole 20 mg oral enteric coated capsule 1 capsule, By Mouth, Daily, # 90 capsule, 0 Refills, Maintenance, 12/01/22 16:17:00 EDT, [id number], 161, cm, 10/28/22 13:31:00 EDT, Height, 86.9, kg, 10/28/22 13:31:00 EDT, Dry Weight Start Date: 12/01/22 Status: Ordered glipiZIDE 10 mg oral tablet, extended release 1 tablet = 10 mg, By Mouth, Daily, # 90 tablet, 1 Refills, Maintenance, 12/02/22 14:40:00 EDT, [facility], Partial fill upon patient request if the prescription is for a schedule II opioid drug., 161, cm, 10/28/22 13:31:00 EDT,... Start Date: 12/02/22 Status: Ordered hydrochlorothiazide-triamterene 25 mg-37.5 mg oral capsule 1 capsule, By Mouth, Daily, # 90 capsule, 1 Refills, Maintenance, 09/08/22 10:28:00 EST, [facility], 0, 1 capsule By Mouth Daily, 161, cm, 08/30/22 14:54:00 EST, Height, 88.9, kg, 08/30/22 14:54:00 EST, Dry Weight Start Date: 09/08/22 Status: Ordered levothyroxine 0.05 mg oral tablet See Instructions, TAKE 1 TABLET DAILY, TAKE 2 TABLETS ON MONDAY, # 102 tablet, 0 Refills, Maintenance, 12/01/22 16:17:00 EDT, [id number], 161, cm, 10/28/22 13:31:00 EDT, Height, 86.9, kg, 10/28/22 13:31:00 EDT, Dry Weight Start Date: 12/01/22 Status: Ordered loratadine 10 mg oral tablet 1, tablet, By Mouth, Daily, # 90 tablet, Refills 1, Route to Pharmacy Electronically, [id number], 161.5, cm, 08/16/21 14:16:00 EST, Height Start Date: 09/03/21 Status: Ordered losartan 50 mg oral tablet 1 tablet, By Mouth, Daily, # 90 tablet, 3 Refills, 09/08/22 10:28:00 EST, [facility], 161, cm, 08/30/22 14:54:00 EST, Height, 88.9, kg, 08/30/22 14:54:00 EST, Dry Weight Start Date: 09/08/22 Status: Ordered Magnesium Magnesium, 0 Refills, Maintenance, 02/02/22 13:23:00 EDT Start Date: 02/02/22 Status: Ordered Multivitamin Daily, 0 Refills, Maintenance, 02/21/20 10:55:00 EDT Start Date: 02/21/20 Status: Ordered [place]-3 oral capsule See Instructions, one daily, 0 [...] tablet, 1 Refills, Maintenance, 09/08/22 10:29:00 EST, [facility], 161, cm, 08/30/22 14:54:00 EST, [...] Start Date: 02/02/22 Status: Ordered Vitamin D 54484 iu oral capsule 50,000 International_Units, By Mouth, [...] Associate Professional Member Role: PCP Address: Address: [address] [place] [id number]- Care Team Related Persons Name: ALBA TATE Address: [address] [place] [address]
--- OUTSIDE RECORDS SUMMARY | 2023-11-15 15:25 | XMS_ITS | Continuity of Care Document ---
Author Organization [facility] José Luis Lalit lt Address [address] [place] [address]- Care Team Providers Care Cafeteria Attendant Name Role Phone Dionicio ANTON, Lucy Yanez Primary Care Physician [phone] Encounter [facility] Date(s): 01/20/22 - 02/19/22 [facility] Riccardo Ordonez Adult [address] [place] [address]- Allergies, Adverse Reactions, Alerts Substance Reaction Severity Status cefuroxime Active beta blockers Active Macrobid 1, 2 Active Latex rash Active ALVARO inhibitors muscle pain Active metFORMIN Diarrhea Active 1Reports Macrobid causes inflammation in her lungs that presents as atypical pneumonia. 2inflammation of the lung Immunizations Given and Recorded Vaccine Date Status Refusal Reason SARS-CoV-2 (COVID-19) mRNA-1273 vaccine 11/25/21 R ecorded influenza virus vaccine, inactivated 04/28/21 Give n [...] EDT, Height Start Date: 01/24/22 Status: Ordered levothyroxine 0.05 mg oral tablet See Instructions, TAKE 1 TABLET DAILY, TAKE 2 TABLETS ON MONDAY, # 102 tablet, 3 Refills, 10/11/21 11:14:00 EDT, [facility], 161.5, cm, 10/11/21 10:53:00 EDT, Height Start Date: 10/11/21 Status: Ordered loratadine 10 mg oral tablet 1, tablet, By Mouth, Daily, # 90 tablet, Refills 1, Route to Pharmacy Electronically, [id number], 161.5, cm, 08/16/21 14:16:00 EST, Height Start [...] 10:55:00 EDT Start Date: 02/21/20 Status: Ordered [place]-3 oral capsule See Instructions, one daily, 0 [...] Start Date: 02/02/22 Status: Ordered Vitamin D 33423 iu oral capsule 50,000 International_Units, By Mouth, Daily, Refills 0, Maintenance, 02/02/22 13:24:00 EDT, Partialfill upon patient request if the prescription is for a schedule II opioid drug. Start Date: 02/02/22 Status: Ordered Problem List Condition Effective Dates Status Health Status Inform ant Anxiety(Confirmed) Active Benign essential hypertension(Confirmed) Active Glaucoma(Confirmed) Active Hypercholesterolemia(Confirmed) Active Hypothyroidism(Confirmed) Active Obese class I(Confirmed) Active Type II diabetes mellitus(Confirmed) Active Social History Social History Type Response Smoking Status Former smoker, quit more than 30 days ago entered on: 05/16/19 Sex
--- OUTSIDE RECORDS SUMMARY | 2023-11-15 15:25 | XMS_ITS | Continuity of Care Document ---
Author Organization [facility] José Luis Lalit lt Address [address] [place] [address]- Care Team Providers Care Insulation Cupola Charger Name Role Phone Dionicio ANTON, Lucy Yanez Primary Care Physician [phone] Encounter [facility] [place] Date(s): 11/15/21 - 12/15/21 [facility] Adult [address] [place] [address]- Allergies, Adverse Reactions, Alerts Substance Reaction Severity Status cefuroxime Active metFORMIN Diarrhea Active Macrobid 1, 2 Active Latex rash [...] tablet, 3 Refills, 10/11/21 11:14:00 EDT, [facility], 161.5, cm, 10/11/21 10:53:00 EDT, Height Start Date: 10/11/21 Status: Ordered loratadine 10 mg oral tablet 1, tablet, By Mouth, Daily, # 90 tablet, Refills 1, Route to Pharmacy Electronically, [facility] [address], 161.5, cm, 08/16/21 14:16:00 EST, Height Start Date: 09/03/21 Status: Ordered losartan 50 mg oral tablet 50 mg, 1, tablet, By Mouth, Daily, # 90 tablet, Refills 3, Tot. Refills 3, Maintenance, 12/30/20 11:48:00 EDT, Route to Pharmacy Electronically, [facility], 161.5, cm, 12/30/20 11:09:00 EDT, Height Start Date: 12/30/20 Status: Ordered Multivitamin Daily, 0 Refills, Maintenance, 02/21/20 10:55:00 EDT Start Date: 02/21/20 Status: Ordered Nexium 20 mg oral enteric coated capsule 1 capsule = 20 mg, By Mouth, Daily, # 90 capsule, 1 Refills, Maintenance, 09/13/21 9:37:00 EST, EC Capsule, [facility], Partial fill upon patient request if the prescription is fora schedule II opioid drug., 161.5, cm, 09/13/21 8:5... Start Date: 09/13/21 Status: Ordered Nexium Capsule See Instructions, 22 mg 1 every other day, Refills 0, Maintenance, 05/06/19 16:33:27 EDT, Instructions Replace Required Details Start Date: 05/06/19 Status: Ordered [place]-3 oral capsule See Instructions, one daily, 0 [...]
--- OUTSIDE RECORDS SUMMARY | 2023-11-15 15:25 | XMS_ITS | Continuity of Care Document ---
Author Organization [facility] José Luis Lalit lt Address [address] [place] [address]- Care Team Providers Care Teacher Counselor Name Role Phone Dionicio ANTON, Lucy Yanez Primary Care Physician [phone] [place] [facility] [place] 02[place]23 - 03/03/23 [facility] José Luis Adult [address] [place] [address]- Allergies, Adverse Reactions, Alerts Substance Reaction Severity Status cefuroxime Active beta blockers Active Latex rash Active ALVARO inhibitors muscle pain Active metFORMIN Diarrhea Active Bactrim Active Macrobid 1, 2 Active 1Reports Macrobid causes inflammation in her lungs that presents as atypical pneumonia. 2inflammation of the lung Immunizations Given and Recorded Vaccine Date Status Refusal Reason influenza virus vaccine, inactivated 04/05/22 Obyd rded influenza virus vaccine, inactivated 04/28/21 Give [...] tablet, 0 Refills, Maintenance, 10/31/22 11:47:00 EDT, [facility] [id number], 161, cm, 10/28/22 13:31:00 EDT, Height, 86.9, [...] capsule, 3 Refills, Maintenance, 01/27/23 9:13:00 EDT, [facility], 161, cm, 10/28/22 13:31:00 EDT, Height, 86.9, kg, 10/28/22 13:31:00 EDT, DryWeight Start Date: 01/27/23 Status: Ordered GlipiZIDE XL 10 mg oral tablet, extended release 2 tablet = 20 mg, By Mouth, Daily, # 180 tablet, 1 Refills, Maintenance, 02/16/23 6:50:00 EDT, [facility], Partial fill upon patient request if the prescription is for a schedule II opioid drug., 161, cm, 02/07/23 11:15:00 EDT,... Start Date: 02/16/23 Status: Ordered hydrochlorothiazide-triamterene 25 mg-37.5 mg oral capsule 1 capsule, By Mouth, Daily, # 90 capsule, 1 Refills, Maintenance, 09/08/22 10:28:00 EST, [facility], 0, 1 capsule By Mouth Daily, 161, cm, 08/30/22 14:54:00 EST, Height, 88.9, kg, 08/30/22 14:54:00 EST, Dry Weight Start Date: 09/08/22 Status: Ordered loratadine 10 mg oral tablet 1, tablet, By Mouth, Daily, # 90 tablet, Refills 1, Route to Pharmacy Electronically, [facility] [address], 161.5, cm, 08/16/21 14:16:00 EST, Height Start Date: 09/03/21 Status: Ordered losartan 50 mg oral tablet 1 tablet, By Mouth, Daily, for 7 days, # 7 tablet, 0 Refills, Physician Stop 03/06/23 11:33:00 EDT,02/27/23 11:33:00 EDT, [facility]/pharmacy #[id number], 161, cm, 02/22/23 11:03:00 EDT, Height, 86.9, kg, 10/28/22 13:31:00 EDT, Dry Weight Start Date: 02/27/23 Stop Date: 03/06/23 Status: Ordered losartan 50 mg oral tablet 1 tablet, By Mouth, Daily, for 90 days, # 90 tablet, 1 Refills, Physician Stop 09/02/23 11:33:00 EST, 03/06/23 11:33:00 EDT, [facility]/pharmacy #[id number], 161, cm, 02/22/23 11:03:00 EDT, Height, 86.9, kg, 10/28/22 13:31:00 EDT, Dry Weight Start Date: 03/06/23 Stop Date: 09/02/23 Status: Ordered Magnesium Magnesium, 0 Refills, Maintenance, 02/02/22 13:23:00 EDT Start Date: 02/02/22 Status: Ordered Mastectomy Bra See Instructions, # 3 each, Refills 1, Tot. Refills 1, Maintenance, Left breast cancer status post left lumpectomy, 02/22/23 12:03:00 EDT, Supply Start Date: 02/22/23 Status: Ordered Mastectomy Prosthesis See Instructions, # 1 each, Maintenance, left breast cancer, left lumpectomy, 02/22/23 12:04:00 EDT, Supply Start Date: 02/22/23 Status: Ordered Multivitamin Daily, 0 Refills, Maintenance, 02/21/20 10:55:00 EDT Start Date: 02/21/20 Status: Ordered [place]-3 oral capsule See Instructions, one daily, 0 [...] 1 Refills, Maintenance, 09/08/22 10:29:00 EST, [facility], 161, cm, 08/30/22 14:54:00 EST, Height, 88.9, kg, 08/30/22 14:54:00 EST, Dry Weight Start Date: 09/08/22 Status: Ordered Synthroid 0.05 mg oral tablet 1 tablet, By Mouth, Daily, TAKE 2TABLETS ON MONDAY, # 102 tablet, 1 Refills, Maintenance, 01/27/23 4:55:00 EDT, [facility], 161, cm, 10/28/22 13:31:00 [...] Start Date: 02/02/22 Status: Ordered Vitamin D 01835 iu oral capsule 50,000 International_Units, By Mouth, [...] Care team information Care Team Personnel Name: Lucy Greenberg NP Position: S PCO Associate Professional Member Role: PCP Address: Address: [address] [place] [id number]- Care Team Related Persons Name: ALBA TATE Address: home [address] [place] [address]
--- OUTSIDE RECORDS SUMMARY | 2023-11-15 15:25 | XMS_ITS | Continuity of Care Document ---
Author Organization [facility] Riccardo Ordonez Lalit lt Address [address] [place] [address]- Care Team Providers Care Web Development Consultant Name Role Phone Dionicio ANTON, Lucy Yanez Primary Care Physician [facility]counter [facility] Date(s): 09/26/23 - 10/03/23 JOYCELYN Ordonez Adult [address] [place] [address]- Attending Physician: Not on Staff, Attending MD Allergies, Adverse Reactions, Alerts Substance Reaction Severity [...] (oldterm) 1 04/19/23 Recor ded SARS-CoV-2 mRNA (ygcxyha-[id number]) vax 2 04/19/23 Recorded influenza virus vaccine, inactivated 04/05/22 Boyd rded influenza virus vaccine, inactivated 04/28/21 Give n influenza virus vaccine, inactivated 04/22/20 Give n influenza virus vaccine, inactivated 04/09/19 Boyd rded influenza virus vaccine, inactivated 03/28/18 Boyd rded [id number] bivalent booster vax 04/02/22 Recorded SARS-CoV-2 (COVID-19) mRNA-1273 vaccine 11/25/21 R ecorded SARS-CoV-2 (COVID-19) mRNA BNT-162b2 vac 04/22/21 Recorded SARS-CoV-2 (COVID-19) mRNA BNT-162b2 vac 09/09/20 Given SARS-CoV-2 (COVID-19) mRNA BNT-162b2 vac 08/19/20 Recorded zoster vaccine, inactivated 04/06/19 Recorded 1Result Comment: [facility] in [place] 2Result Comment: [facility] [place] Medications Accu-Chek Paradise Glucose Meter See Instructions, [...] EDT, Supply Start Date: 01/28/21 Status: Ordered Actos 45 mg oral tablet 1 tablet = 45 mg, By Mouth, Daily, # 30 tablet, 0 Refills, Maintenance, 09/27/23 6:40:00 EDT, [facility]/pharmacy #[id number], Partial fill upon patient request if the prescription is for a schedule II opioid drug., 161, cm, 09/19/23 7:29:00 EST, Height, 82.7, kg,... Start Date: 09/27/23 Status: Ordered anastrozole 1 mg oral tablet 1 tablet, By Mouth, Daily, # 90 tablet, 1 Refills, Maintenance, 09/03/23 6:59:00 EST, [facility], 161, cm, 05/16/23 10:58:00 EDT, Height, 84.7, kg, 05/04/23 15:05:00 EDT, Dry Weight Start Date: 09/03/23 Status: Ordered esomeprazole 20 mg oral enteric coated capsule 1 capsule, By Mouth, Daily, # 90 capsule, 3 Refills, Maintenance, 01/27/23 9:13:00 EDT, [facility], 161, cm, 10/28/22 13:31:00 EDT, Height, 86.9, kg, 10/28/22 13:31:00 EDT, DryWeight Start Date: 01/27/23 Status: Ordered Free Style Ortiz 2 Sensors Free Style Ortiz 2 Sensors, See Instructions, # 3 each, Refills 3, Tot. Refills 3, Maintenance, Change sensor every 14 days., 09/19/23 15:10:00 EST, T2DM; E11.9; change sensor annia 14 days., Supply, 161, cm, 09/19/23 7:29:00 EST, Height, 82.7, kg, ... Start Date: 09/19/23 Status: Ordered Freestyle Ortiz 2 [place] Freestyle Ortiz 2 [place], See Instructions, # 1 each, Refills 0, Tot. Refills 0, Maintenance, Scan your sensor 5 times daily, and as needed for signs and symptoms of low or high blood glucose., 09/19/23 15:10:00 EST, Dx E11.9; T2DM;, Supply, 161, cm... Start Date: 09/19/23 Status: Ordered Glucosamine Chondroitin By Mouth, Daily, 0 Refills, Maintenance, 09/13/23 15:32:00 EST, Partial fill upon patient request if the prescription is for a schedule II opioid drug. Start Date: 09/13/23 Status: Ordered hydrochlorothiazide-triamterene 25 mg-37.5 mg oral capsule 1 capsule, By Mouth, Daily, # 90 capsule, 1 Refills, Maintenance, 09/05/23 6:39:00 EST, [facility], 90, TAKE 1 CAPSULE DAILY, 161, cm, 05/16/23 10:58:00 EDT, Height, 84.7, kg, 05/04/23 15:05:00 EDT, Dry Weight Start Date: 09/05/23 Status: Ordered Januvia 50 mg oral tablet 1 tablet = 50 mg, By Mouth, Daily, # 30 tablet, 0 Refills, Maintenance, 09/27/23 12:50:00 EDT, Tablet, [facility]/pharmacy #[id number], Partial fill upon patient request if the prescription is for a schedule II opioid drug., 161, cm, 09/19/23 7:29:00 EST, Height,... Start Date: 09/27/23 Status: Ordered latanoprost 0.005% ophthalmic solution 1 drops, Eyes, Both, Daily at bedtime, # 3 mL, 0 Refills, Maintenance, 05/04/23 15:31:00 EDT, [facility], Partial fill upon patient request if the prescription is for a schedule II opioid drug. Start Date: 05/04/23 Status: Ordered losartan 50 mg oral tablet 1 tablet, By Mouth, Daily, for 90 days, # 90 tablet, 1 Refills, Physician Stop 02/29/24 11:33:00 EDT, 09/02/23 11:33:00 EST, [facility], 161, cm, 02/22/23 11:03:00 [...] 10:55:00 EDT Start Date: 02/21/20 Status: Ordered [place]-3 oral capsule 0 Refills, Maintenance, 09/13/23 15:32:00 EST, Partial fill upon patient request if the prescription is for a schedule II opioid drug. Start Date: 09/13/23 Status: Ordered OneTouch Verio Lancets See Instructions, [...] Daily, # 90 tablet, 1 Refills, Maintenance, 09/05/23 23:33:00 EST, [facility], 161, cm, 05/16/23 10:58:00 EDT, Height, 84.7, kg, 05/04/23 15:05:00 EDT, Dry Weight Start Date: 09/05/23 Status: Ordered Synthroid 0.05 mg oral tablet 1 tablet, By Mouth, Daily, TAKE 2TABLETS ON MONDAY, # 102 tablet, 1 Refills, Maintenance, 06/20/23 10:22:00 EST, [facility], 161, cm, 05/16/23 10:58:00 EDT, Height, 84.7, kg, 05/04/23 15:05:00 EDT, Dry Weight Start Date: 06/20/23 Status: Ordered timolol maleate 0.5% ophthalmic solution 1 drops, Eyes, Both, 2 times a day, # 10 mL, 0 Refills, Maintenance, 12/27/19 10:36:00 EDT, Solution Start Date: 12/27/19 Status: Ordered Vitamin D 52122 iu oral capsule 50,000 International_Units, By Mouth, [...] Invasive ductal carcinoma of breast Confirmed Active Malignant neoplasm of upper-outer quadrant of left breast in female, estrogen receptor positive Confirmed Active Obese class I Confirmed Active Type II diabetes mellitus Confirmed Active Social History Social History Type Response Smoking Status Former smoker, quit more than 30 days ago entered on: 05/16/19 Sex Note * Leonie Su RN: PERFORM, SIGN, VERIFY Lucy Greenberg NP: SIGN Event Display: Clinical Summary Authored Date: [id number] Patient: RENEE TATE Age: 83 years Sex: Female : 1940 Associated Diagnoses: None Author: Leonie Su RN Visit Information Type of Visit Action Taken: CGM ??ortiz 2 teaching Patient comes inf for a scheduled teaching with nurse today for Ortiz 2 CGM. Pt brings CGM sensors and reader to visit today. (picked up form her pharmacy) Pt educated on: Freestyle Ortiz 2 CGM?? sensor application (can be worn for up to 14 days) Change every 14 days. Patient's present at the visit today. Pt educated on how to apply and remove the sensor and appropriate area to apply. Went over the brochures books and reference information included in the box and where to find information as needed. After Nurse provided DEMO on how to apply sensor. Pt successfully self-applied sensor to the posterior left arm. (Reminded pt once the applicator comes off the sensor the needle comes out as well and only a thin catheter is left for BG reading). Pt's reader was set for appropriate/date/time. Pt advised to make sure arm is hair free and dry and free of oils and cleaned with alcohol swab inside out and allow to completely allow to dry prior to applying sensor. Pt aware if sensor comes off by accident before 14 day grady to safe it and call our office and callthe Tel number on the box to get sensor replaced (as pharmacy might not fill prior to due date of the next refill) Pt educated Phoenix needs to be charged for 60 minutes. Pt educated on all the icons within reader. Pt advised to check manual BG as needed and gaby. when icon in the reader popes up asking to check for manual as needed. Pt advised to check BG up to 5 X a day and as needed if feeling ill and for any s/sx of hypo/Hyperglycemia. Pt advised to download the Freestyle Ortiz 2 gracy in the gracy store to keep track of BG. Pt advised to call back to report if there are BG abnormalities. Pt advised to keep a follow up appt with provider. Pt advised to call our office if any questions or concerns as needed. Pt stated understanding and agreed with plan. pt requested to come in 2 weeks for a refresher on how to take off and apply new sensor. pt is iza in 2 weeks with me again. 60 min spent with pt Leonie Chahal RN . 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
--- OUTSIDE RECORDS SUMMARY | 2023-11-15 15:25 | XMS_ITS | Continuity of Care Document ---
Author Organization [facility] José Luis Lalit lt Address [address] [place] [address]- Care Team Providers Care Certified Professional Coder Name Role Phone Dionicio ANTON, Lucy Yanez Primary Care Physician [phone] [place] [facility] 11/08[place] - 12/08/21 [facility] José Luis Adult [address] [place] [address]- Allergies, Adverse Reactions, Alerts Substance Reaction Severity [...] tablet, 3 Refills, 10/11/21 11:14:00 EDT, [facility], 161.5, cm, 10/11/21 10:53:00 EDT, Height Start Date: 10/11/21 Status: Ordered loratadine 10 mg oral tablet 1, tablet, By Mouth, Daily, # 90 tablet, Refills 1, Route to Pharmacy Electronically, [id number], 161.5, cm, 08/16/21 14:16:00 EST, Height Start Date: 09/03/21 Status: Ordered losartan 50 mg oral tablet 50 mg, 1, tablet, By Mouth, Daily, # 90 tablet, Refills 3, Tot. Refills 3, Maintenance, 12/30/20 11:48:00 EDT, Route to Pharmacy Electronically, [email or web address], 161.5, cm, 12/30/20 11:09:00 EDT, Height Start Date: 12/30/20 Status: Ordered Multivitamin Daily, 0 Refills, Maintenance, 02/21/20 10:55:00 EDT Start Date: 02/21/20 Status: Ordered Nexium 20 mg oral enteric coated capsule 1 capsule = 20 mg, By Mouth, Daily, # 90 capsule, 1 Refills, Maintenance, 09/13/21 9:37:00 EST, EC Capsule, [email or web address], Partial fill upon patient request if the prescription is fora schedule II opioid drug., 161.5, cm, 09/13/21 8:5... Start Date: 09/13/21 Status: Ordered Nexium Capsule See Instructions, 22 mg 1 every other day, Refills 0, Maintenance, 05/06/19 16:33:27 EDT, Instructions Replace Required Details Start Date: 05/06/19 Status: Ordered [place]-3 oral capsule See Instructions, one daily, 0 [...]
--- OUTSIDE RECORDS SUMMARY | 2023-11-15 15:25 | XMS_ITS | Continuity of Care Document ---
Author Organization [facility] José Luis Lalit lt Address [address] [place] [address]- Care Team Providers Care Director Quality Assurance Name Role Phone Dionicio ANTON, Lucy Yanez Primary Care Physician [phone] Encounter [facility] Date(s): 12/31/21 - 01/30/22 [facility] Riccardo Ordonez Adult [address] [place] [address]- Allergies, Adverse Reactions, Alerts Substance Reaction Severity [...] opioid drug. Start Date: 08/09/21 Status: Ordered glipiZIDE 10 mg oral tablet, extended release 1 tablet = 10 mg, By Mouth, Daily, replace 5mg, # 30 tablet, 2 Refills, Maintenance, 01/19/22 11:59:00 EDT, ER Tablet, [facility], Partial fill upon patient request if the prescription is for a schedule II opioid drug., 161.5, cm, 0... Start Date: 01/19/22 Status: Ordered hydrochlorothiazide-triamterene 25 mg-37.5 mg oral [...] cm, 10/11/21 10:53:00 EDT, Height Start Date: 3/28/22 Status: Ordered loratadine 10 mg oral tablet 1, tablet, By Mouth, Daily, # 90 tablet, Refills 1, Route to Pharmacy Electronically, [id number], 161.5, cm, 08/16/21 14:16:00 EST, Height Start Date: 09/03/21 Status: Ordered losartan 50 mg oral tablet 1 tablet, By Mouth, Daily, # 90 tablet, 3 Refills, [facility], 161.5, cm, 11/11/21 12:28:00 EDT, Height Start Date: 01/19/22 Status: Ordered Multivitamin Daily, 0 Refills, Maintenance, 02/21/20 10:55:00 EDT Start Date: 02/21/20 Status: Ordered Nexium 20 mg oral enteric coated capsule 1 capsule = 20 mg, By Mouth, Daily, # 90 capsule, 1 Refills, Maintenance, 09/13/21 9:37:00 EST, EC Capsule, [facility], Partial fill upon patient request if the prescription is fora schedule II opioid drug., 161.5, cm, 09/13/21 8:5... Start Date: 09/13/21 Status: Ordered Nexium Capsule See Instructions, 22 mg 1 every other day, Refills 0, Maintenance, 05/06/19 16:33:27 EDT, Instructions Replace Required Details Start Date: 05/06/19 Status: Ordered [place]-3 oral capsule See Instructions, one daily, 0 [...]
--- OUTSIDE RECORDS SUMMARY | 2023-11-15 15:25 | XMS_ITS | Continuity of Care Document ---
Author Organization [facility] José Luis Lalit lt Address [address] [place] [address]- Care Team Providers Care Warp Changer Name Role Phone Dionicio ANTON, Lucy Yanez Primary Care Physician [place] [facility] [place](s): 05/31/21 - 06/30/21 [facility] Adult [address] [place] [address]- Allergies, Adverse Reactions, Alerts Substance Reaction Severity Status cefuroxime Active ALVARO inhibitors muscle pain Active Macrobid 1, 2 Active Latex rash Active 1Reports Macrobid causes inflammation in her [...] 03/08/21 9:39:00 EDT, Route to Pharmacy Electronically, [facility]/pharmacy #[id number], 161.5, cm, 12/30/20 11:09:00 EDT, [...] Required Details Start Date: 05/06/19 Status: Ordered [place]-3 oral capsule See Instructions, one daily, 0 [...]
--- OUTSIDE RECORDS SUMMARY | 2023-11-15 15:25 | XMS_ITS | Continuity of Care Document ---
Author Organization [facility] José Luis Lalit lt Address [address] [place] [address]- Care Team Providers Care Data Center Solutions Architect Name Role Phone Dionicio ANTON, Lucy Yanez Primary Care Physician Encounter [facility] Date(s): 09/13/22 - 10/13/22 [facility] Riccardo Ordonez Adult [address] [place] [address]- Allergies, Adverse Reactions, Alerts Substance Reaction Severity [...] 0 Refills, Maintenance, 09/03/22 19:13:00 EST, Tablet, [facility]/pharmacy #[id number], Partial fill upon [...] capsule, 0 Refills, Maintenance, 09/08/22 10:27:00 EST, [facility], 161, cm, 08/30/22 14:54:00 EST, Height, 88.9, kg, 08/30/22 14:54:00 EST, Dry Weight Start Date: 09/08/22 Status: Ordered glipiZIDE 5 mg oral tablet 15 mg, 3, tablet, By Mouth, Daily, for 90 days, # 270 tablet, Refills 1, Tot. Refills 1, Hard Stop 03/01/23 11:56:00 EDT, 09/02/22 11:56:00 EST, Route to Pharmacy Electronically, [facility]/pharmacy #[id number], Partial fill upon patient request if the prescriptio... Start Date: 09/02/22 Stop Date: 03/01/23 Status: Ordered glipiZIDE 5 mg oral tablet 15 mg, 3, tablet, By Mouth, Daily, # 270 tablet, Refills 1, Tot. Refills 1, Maintenance, 03/01/23 11:56:00 EDT, Route to Pharmacy Electronically, [facility], Partial fill upon patient request if the prescription is for a schedul... Start Date: 03/01/23 Stop Date: 08/28/23 Status: Ordered hydrochlorothiazide-triamterene 25 mg-37.5 mg oral capsule 1 capsule, By Mouth, Daily, # 90 capsule, 1 Refills, Maintenance, 09/08/22 10:28:00 EST, [facility], 0, 1 capsule By Mouth Daily, 161, cm, 08/30/22 14:54:00 EST, Height, 88.9, kg, 08/30/22 14:54:00 EST, Dry Weight Start Date: 09/08/22 Status: Ordered levothyroxine 0.05 mg oral tablet See Instructions, TAKE 1 TABLET DAILY, TAKE 2 TABLETS ON MONDAY, # 102 tablet, 0 Refills, 09/08/22 10:27:00 EST, [facility], 161, cm, 08/30/22 14:54:00 EST, Height, 88.9, kg, 08/30/22 14:54:00 EST, Dry Weight Start Date: 09/08/22 Status: Ordered loratadine 10 mg oral tablet 1, tablet, By Mouth, Daily, # 90 tablet, Refills 1, Route to Pharmacy Electronically, [id number], 161.5, cm, 08/16/21 14:16:00 EST, Height Start [...] 90 tablet, 3 Refills, 09/08/22 10:28:00 EST, [facility], 161, cm, 08/30/22 14:54:00 EST, Height, 88.9, kg, 08/30/22 14:54:00 EST, Dry Weight Start Date: 09/08/22 Status: Ordered Magnesium Magnesium, 0 Refills, Maintenance, 02/02/22 13:23:00 EDT Start Date: 02/02/22 Status: Ordered Multivitamin Daily, 0 Refills, Maintenance, 02/21/20 10:55:00 EDT Start Date: 02/21/20 Status: Ordered nystatin topical 548480 u/gm cream See Instructions, Topically 2 times a day x 14 days, # 30 Gm, 1 Refills, Acute 10/20/22 10:25:00 EDT, 10/13/22 10:24:00 EDT, [facility]/pharmacy #[id number], Partial fill upon patient request if the prescription is for a schedule II opioid drug., Topically 2 times... Start Date: 10/13/22 Stop Date: 10/20/22 Status: Ordered [place]-3 oral capsule See Instructions, one daily, 0 [...] 1 Refills, Maintenance, 09/08/22 10:29:00 EST, [facility], 161, cm, 08/30/22 14:54:00 [...] Start Date: 02/02/22 Status: Ordered Vitamin D 33441 iu oral capsule 50,000 International_Units, By Mouth, [...] Personnel Name: Dionicio ANTON, Lucy Yanez Position: [facility] PCO Associate Professional Member Role: PCP Address: Address: [address] [place] [address]- Care Team Related Persons Name: ALBA TATE Address: home [address] [place] [address]
--- OUTSIDE RECORDS SUMMARY | 2023-11-15 15:25 | XMS_ITS | Continuity of Care Document ---
Author Organization [facility] José Luis Lalit lt Address [address] [place] [address]- Care Team Providers Care Pipefitter Name Role Phone Dionicio ANTON, Lucy Yanez Primary Care Physician [phone] Encounter [facility] Date(s): 03/14/23 - 04/13/23 [facility] José Luis Adult [address] [place] [address]- Allergies, Adverse Reactions, Alerts Substance Reaction Severity Status cefuroxime Active beta blockers Active metFORMIN Diarrhea Active Macrobid 1, 2 Active Bactrim Active [...] tablet, 1 Refills, Maintenance, 04/09/23 17:21:00 EDT, [facility], 161, cm, 02/22/23 11:03:00 EDT, Height, 86.9, kg, 10/28/22 13:31:00 EDT, Dry Weight Start Date: 04/09/23 Status: Ordered Collagen 0 Refills, Maintenance, 02/02/22 13:24:00 EDT, Partial fill upon patient request if the prescription is for a schedule II opioid drug. Start Date: 02/02/22 Status: Ordered esomeprazole 20 mg oral enteric coated capsule 1 capsule, By Mouth, Daily, # 90 capsule, 3 Refills, Maintenance, 01/27/23 9:13:00 EDT, [facility], 161, cm, 10/28/22 13:31:00 EDT, Height, 86.9, kg, 10/28/22 13:31:00 EDT, DryWeight Start Date: 01/27/23 Status: Ordered GlipiZIDE XL 10 mg oral tablet, extended release 2 tablet = 20 mg, By Mouth, Daily, # 180 tablet, 1 Refills, Maintenance, 02/16/23 6:50:00 EDT, [facility], Partial fill upon patient request if the prescription is for a schedule II opioid drug., 161, cm, 02/07/23 11:15:00 EDT,... Start Date: 02/16/23 Status: Ordered hydrochlorothiazide-triamterene 25 mg-37.5 mg oral capsule 1 capsule, By Mouth, Daily, # 90 capsule, 1 Refills, Maintenance, 04/06/23 8:40:00 EDT, [facility], 90, TAKE 1 CAPSULE DAILY, 161, cm, 02/22/23 11:03:00 EDT, Height, 86.9, kg, 10/28/22 13:31:00 EDT, Dry Weight Start Date: 04/06/23 Status: Ordered loratadine 10 mg oral tablet 1, tablet, By Mouth, Daily, # 90 tablet, Refills 1, Route to Pharmacy Electronically, [id number], 161.5, cm, 08/16/21 14:16:00 EST, Height Start Date: 09/03/21 Status: Ordered losartan 50 mg oral tablet 1 tablet, By Mouth, Daily, for 90 days, # 90 tablet, 1 Refills, Physician Stop 02/29/24 11:33:00 EDT, 09/02/23 11:33:00 EST, [facility], 161, cm, 02/22/23 11:03:00 EDT, Height,86.9, kg, 10/28/22 13:31:00 EDT, Dry Weight Start Date: 09/02/23 Stop Date: 02/29/24 Status: Ordered losartan 50 mg oral tablet 1 tablet, By Mouth, Daily, for 90 days, # 90 tablet, 1 Refills, Physician Stop 09/02/23 11:33:00 EST, 03/06/23 11:33:00 EDT, [facility]/pharmacy #[id number], 161, cm, 02/22/23 11:03:00 EDT, Height, [...] 10:55:00 EDT Start Date: 02/21/20 Status: Ordered [place]-3 oral capsule See Instructions, one daily, 0 [...] Start Date: 02/02/22 Status: Ordered Vitamin D 31085 iu oral capsule 50,000 International_Units, By Mouth, [...] Associate Professional Member Role: PCP Address: Address: [address] [place] [place] [address]- Care Team Related Persons Name: ALBA TATE Address: home [address] [place] [address]
--- OUTSIDE RECORDS SUMMARY | 2023-11-15 15:25 | XMS_ITS | Continuity of Care Document ---
Author Organization [facility] Riccardo Ordonez Lalit lt Address [address] [place] [address]- Care Team Providers Care Client Portfolio Manager Name Role Phone Dionicio ANTON, Lucy Yanez Primary Care Physician [phone] Encounter [facility] Date(s): 09/27/23 - 10/27/23 [facility] Riccardo Ordonez Adult [address] [place] [address]- Allergies, Adverse Reactions, Alerts Substance Reaction Severity [...] (oldterm) 1 04/19/23 Recor ded SARS-CoV-2 mRNA ([id number]) vax 2 04/19/23 Recorded influenza virus vaccine, inactivated 04/05/22 Boyd rded influenza virus vaccine, inactivated 04/28/21 Give n influenza virus vaccine, inactivated 04/22/20 Give n influenza virus vaccine, inactivated 04/09/19 Boyd rded influenza virus vaccine, inactivated 03/28/18 Boyd rded [id number] bivalent booster vax 04/02/22 Recorded SARS-CoV-2 (COVID-19) mRNA-1273 vaccine 11/25/21 R ecorded SARS-CoV-2 (COVID-19) mRNA BNT-162b2 vac 04/22/21 Recorded SARS-CoV-2 (COVID-19) mRNA BNT-162b2 vac 09/09/20 Given SARS-CoV-2 (COVID-19) mRNA BNT-162b2 vac 08/19/20 Recorded zoster vaccine, inactivated 04/06/19 Recorded 1Result Comment: [facility] [place] 2Result Comment: [facility] [place] Medications Accu-Chek [place] Glucose Meter See Instructions, # 1 each, [...] tablet, 1 Refills, Maintenance, 09/03/23 6:59:00 EST, [facility], 161, cm, 05/16/23 10:58:00 EDT, Height, 84.7, kg, 05/04/23 15:05:00 EDT, Dry Weight Start Date: 09/03/23 Status: Ordered esomeprazole 20 mg oral enteric coated capsule 1 capsule, By Mouth, Daily, # 90 capsule, 3 Refills, Maintenance, 01/27/23 9:13:00 EDT, [facility], 161, cm, 10/28/22 13:31:00 EDT, Height, 86.9, kg, 10/28/22 13:31:00 EDT, DryWeight Start Date: 01/27/23 Status: Ordered Free Style Ortiz 2 Sensors Free Style Ortiz 2 Sensors, See Instructions, # 6 each, Refills 3, Tot. Refills 3, Maintenance, Change sensor every 14 days., 10/11/23 7:39:00 EDT, T2DM; E11.9; change sensor every 14 days. dispense 90 day supply, Supply, 161, cm, 09/19/23 7:29:00 EST... Start Date: 10/11/23 Status: Ordered Freestyle Ortiz 2 [place] Freestyle Ortiz 2 [place], See Instructions, # 1 each, Refills 0, Tot. Refills 0, Maintenance, Scan your sensor 5 times daily, and as needed for signs and symptoms of low or high blood glucose., 09/19/23 15:10:00 EST, Dx E11.9; T2DM;, Supply, 161, cm... Start Date: 09/19/23 Status: Ordered GlipiZIDE XL 10 mg oral tablet, extended release 1 tablet = 10 mg, By Mouth, Daily, # 90 tablet, 3 Refills, Maintenance, 10/11/23 6:47:00 EDT, Partial fill upon patient request if the prescription is for a schedule II opioid drug. Start Date: 10/11/23 Stop Date: 10/05/24 Status: Ordered Glucosamine Chondroitin By Mouth, Daily, 0 Refills, Maintenance, 09/13/23 15:32:00 EST, Partial fill upon patient request if the prescription is for a schedule II opioid drug. Start Date: 09/13/23 Status: Ordered hydrochlorothiazide-triamterene 25 mg-37.5 mg oral capsule 1 capsule, By Mouth, Daily, # 90 capsule, 1 Refills, Maintenance, 09/05/23 6:39:00 EST, [facility], 90, TAKE 1 CAPSULE DAILY, 161, cm, 05/16/23 10:58:00 EDT, Height, 84.7, kg, 05/04/23 15:05:00 EDT, Dry Weight Start Date: 09/05/23 Status: Ordered Januvia 50 mg oral tablet 1 tablet = 50 mg, By Mouth, Daily, # 90 tablet, 2 Refills, Maintenance, 10/11/23 7:41:00 EDT, Tablet, [facility], Partial fill upon patient request if the prescription is for aschedule II opioid drug., 161, cm, 09/19/23 7:29:00... Start Date: 10/11/23 Status: Ordered latanoprost 0.005% ophthalmic solution 1 [...] Stop 02/29/24 11:33:00 EDT, 09/02/23 11:33:00 EST, [facility], 161, cm, 02/22/23 11:03:00 [...] 10:55:00 EDT Start Date: 02/21/20 Status: Ordered [place]-3 oral capsule 0 Refills, Maintenance, 09/13/23 15:32:00 [...] tablet, 1 Refills, Maintenance, 09/05/23 23:33:00 EST, [facility], 161, cm, 05/16/23 10:58:00 EDT, Height, 84.7, kg, 05/04/23 15:05:00 EDT, Dry Weight Start Date: 09/05/23 Status: Ordered Synthroid 0.05 mg oral tablet 1 tablet, By Mouth, Daily, TAKE 2TABLETS ON MONDAY, # 102 tablet, 1 Refills, Maintenance, 06/20/23 10:22:00 EST, [facility], 161, cm, 05/16/23 10:58:00 EDT, Height, 84.7, kg, 05/04/23 15:05:00 EDT, Dry Weight Start Date: 06/20/23 Status: Ordered timolol maleate 0.5% ophthalmic solution 1 drops, Eyes, Both, 2 times a day, # 10 mL, 0 Refills, Maintenance, 12/27/19 10:36:00 EDT, Solution Start Date: 12/27/19 Status: Ordered Vitamin D 32116 iu oral capsule 50,000 International_Units, By Mouth, [...] Team Personnel Name: Lucy Greenberg NP Position: [facility] PCO Associate Professional Member Role: PCP Address: Address: [address] [facility] Adult [facility] [place] [address]- Care Team Related Persons Name: ALBA TATE Address: home [address] [place] [address]
--- OUTSIDE RECORDS SUMMARY | 2023-11-15 15:25 | XMS_ITS | Continuity of Care Document ---
Author Organization [facility] Riccardo Ordonez Lalit lt Address [address] [place] [address]- Care Team Providers Care Reference Archivist Name Role Phone Dionicio ANTON, Lucy Yanez Primary Care Physician [facility] Date[facility]s): 07/29/22 - 08/28/22 [facility] Riccardo Ordonez Adult [address] [place] [address]- Allergies, Adverse Reactions, Alerts Substance Reaction Severity [...] 0 Refills, Maintenance, 07/17/22 15:34:00 EST, [facility], 161.3, cm, 07/15/22 9:49:00 EST, Height, 88, kg, 02/02/22 13:19:00 EDT, Dry Weight Start Date: 07/17/22 Status: Ordered glipiZIDE 5 mg oral tablet 15 mg, 3, tablet, By Mouth, Daily, # 270 tablet, Refills 1, Tot. Refills 1, Maintenance, 07/22/22 14:06:00 EST, Route to Pharmacy Electronically, [facility], Partial fill upon patient [...] tablet, 3 Refills, 10/11/21 11:14:00 EDT, [facility], 161.5, cm, 10/11/21 10:53:00 EDT, Height Start Date: 10/11/21 Status: Ordered loratadine 10 mg oral tablet 1, tablet, By Mouth, Daily, # 90 tablet, Refills 1, Route to Pharmacy Electronically, [id number], 161.5, cm, 08/16/21 14:16:00 EST, Height Start Date: 09/03/21 Status: Ordered LORazepam 0.5 mg oral tablet 1 tablet = 0.5 mg, By Mouth, Daily at bedtime, for 30 days, # 30 tablet, 2 Refills, Acute 10/17/22 8:19:00 EDT, 07/19/22 8:19:00 EST, [facility], 161.3, cm, 07/15/22 9:49:00 EST, Height, 88, kg, 02/02/22 13:19:00 EDT, Dry Weight Start Date: 07/19/22 Stop Date: 10/17/22 Status: Ordered losartan 50 mg oral tablet 1 tablet, By Mouth, Daily, # 90 tablet, 3 Refills, [facility], 161.5, cm, 11/11/21 12:28:00 EDT, Height Start Date: 01/19/22 Status: Ordered Magnesium Magnesium, 0 Refills, Maintenance, 02/02/22 13:23:00 EDT Start Date: 02/02/22 Status: Ordered Multivitamin Daily, 0 Refills, Maintenance, 02/21/20 10:55:00 EDT Start Date: 02/21/20 Status: Ordered [place]-3 oral capsule See Instructions, one daily, 0 [...] Start Date: 02/02/22 Status: Ordered Vitamin D 84287 iu oral capsule 50,000 International_Units, By Mouth, [...] Personnel Name: Dionicio ANTON, Lucy Yanez Position: [facility] PCO Associate Professional Member Role: PCP Address: Address: [address] [place] [address]- Care Team Related Persons Name: ALBA TATE Address: [address] [place] [address]
--- OUTSIDE RECORDS SUMMARY | 2023-11-15 15:25 | XMS_ITS | Continuity of Care Document ---
Author Organization [facility] José Luis Lalit lt Address [address] [place] [address]- Care Team Providers Care Continuity Director Name Role Phone Dionicio ANTON, Lucy Yanez Primary Care Physician [place] [facility] [facility] [place]14[place]20 - 02/13/20 [facility] Adult [address] [place] [address]- [facility] Allergies, Adverse Reactions, Alerts Substance Reaction Severity Status Latex rash Active ALVARO inhibitors muscle pain Active Medications Claritin 10 mg oral tablet 10 mg, [...] 04/10/20 8:57:00 EDT, 02/10/20 8:57:00 EDT, [facility], 161.5, cm, 01/07/20 15:02:00 EDT, Height Start Date: 02/10/20 Stop Date: 04/10/20 Status: Ordered losartan 50 mg oral tablet 50 mg, 1, tablet, By Mouth, Daily, # 90 tablet, Refills 3, Tot. Refills 3, Maintenance, 01/14/20 11:31:00 EDT, Route to Pharmacy Electronically, [facility], 161.5, cm, 01/07/20 15:02:00 EDT, Height Start Date: 01/14/20 Status: Ordered metFORMIN 500 mg oral tablet, extended release 1 tablet = 500 mg, By Mouth, 2 times a day, replace short acting, # 180 tablet, 3 Refills, Maintenance, 01/14/20 11:32:00 EDT, [facility], 161.5, cm, 01/07/20 15:02:00 EDT, Height Start Date: 01/14/20 Status: Ordered Nexium Capsule See Instructions, 22 mg 1 every other day, Refills 0, Maintenance, 05/06/19 16:33:27 EDT, Instructions Replace Required Details Start Date: 05/06/19 Status: Ordered Quinlan-3 oral capsule See Instructions, one daily, 0 Refills, Maintenance, 05/07/19 16:47:12 EDT Start Date: 05/07/19 Status: Ordered timolol maleate 0.5% ophthalmic solution [...]
--- OUTSIDE RECORDS SUMMARY | 2023-11-15 15:26 | XMS_ITS | Continuity of Care Document ---
Author Organization [facility] Riccardo Ordonez Lalit lt Address [address] [place] [address]- Care Team Providers Care Hand Mexican Food Maker Name Role Phone Dionicio ANTON, Lucy Yanez Primary Care Physician Encounter [facility] [place] Date(s): 04/15/22 - 05/15/22 [facility] Riccardo Ordonez Adult [address] [place] [address]- Allergies, Adverse Reactions, Alerts Substance Reaction Severity [...] Daily, # 90 capsule, 0 Refills, Maintenance, 05/02/22 21:55:00 EDT, [facility], 161.3, cm, 04/14/22 9:25:00 EDT, Height, 88, kg, 02/02/22 13:19:00 EDT, Dry Weight Start Date: 05/02/22 Status: Ordered Estrace Vaginal Cream 0.1 mg/g [...] tablet, Refills 1, Route to Pharmacy Electronically, [facility] STORE [facility], 161.5, cm, 08/16/21 14:16:00 EST, Height Start [...] 10:55:00 EDT Start Date: 02/21/20 Status: Ordered [place]-3 oral capsule See Instructions, one daily, 0 [...] Start Date: 02/02/22 Status: Ordered Vitamin D 74240 iu oral capsule 50,000 International_Units, By Mouth, [...] Sex Patient Care team information Personnel Name: Lucy Greenberg NP Address: Address: [address] [place] [address]
--- OUTSIDE RECORDS SUMMARY | 2023-11-15 15:26 | XMS_ITS | Continuity of Care Document ---
Author Organization [facility] José Luis Lalit lt Address [address] [place] [address]- Care Team Providers Care Bitumastic Applier Name Role Phone Dionicio ANTON, Lucy Yanez Primary Care Physician [place] [facility] [place](s): 12/31/21 - 01/30/22 [facility] Riccardo Ordonez Adult [address] [place] [address]- Allergies, Adverse Reactions, Alerts Substance Reaction Severity [...] tablet, Refills 1, Route to Pharmacy Electronically, [facility], 161.5, cm, 08/16/21 14:16:00 EST, Height Start [...] Required Details Start Date: 05/06/19 Status: Ordered [place]-3 oral capsule See Instructions, one daily, 0 [...]
--- OUTSIDE RECORDS SUMMARY | 2023-11-15 15:26 | XMS_ITS | Continuity of Care Document ---
Author Organization [facility] Lalit lt Address [address] [place] [address]- Care Team Providers Care Supply Chain Planner Name Role Phone Dionicio ANTON, Lucy Yanez Primary Care Physician Encounter [facility] [place] Date(s): 01/05/23 - 02/04/23 [facility] Adult [address] [place] [address]- Allergies, Adverse Reactions, Alerts Substance Reaction Severity [...] tablet, 0 Refills, Maintenance, 10/31/22 11:47:00 EDT, [facility], 161, cm, 10/28/22 13:31:00 EDT, Height, 86.9, [...] 3 Refills, Maintenance, 01/27/23 9:13:00 EDT, [facility], 161, cm, 10/28/22 13:31:00 EDT, Height, 86.9, kg, 10/28/22 13:31:00 EDT, DryWeight Start Date: 01/27/23 Status: Ordered glipiZIDE 5 mg oral tablet, extended release 3 tablet = 15 mg, By Mouth, Daily, # 90 tablet, 3 Refills, Maintenance, 01/27/23 15:23:00 EDT, [facility], Partial fill upon patient request if the prescription is for a schedule II opioid drug., 161, cm, 10/28/22 13:31:00 EDT,... Start Date: 01/27/23 Stop Date: 05/27/23 Status: Ordered hydrochlorothiazide-triamterene 25 mg-37.5 mg oral capsule 1 capsule, By Mouth, Daily, # 90 capsule, 1 Refills, Maintenance, 09/08/22 10:28:00 EST, [facility], 0, 1 capsule By Mouth Daily, 161, cm, 08/30/22 14:54:00 EST, Height, 88.9, kg, 08/30/22 14:54:00 EST, Dry Weight Start Date: 09/08/22 Status: Ordered loratadine 10 mg oral tablet 1, tablet, By Mouth, Daily, # 90 tablet, Refills 1, Route to Pharmacy Electronically, [facility], 161.5, cm, 08/16/21 14:16:00 EST, Height Start Date: 09/03/21 Status: Ordered losartan 50 mg oral tablet 1 tablet, By Mouth, Daily, # 90 tablet, 3 Refills, 09/08/22 10:28:00 EST, [facility], 161, cm, 08/30/22 14:54:00 EST, Height, 88.9, kg, 08/30/22 14:54:00 EST, Dry Weight Start Date: 09/08/22 Status: Ordered Magnesium Magnesium, 0 Refills, Maintenance, 02/02/22 13:23:00 EDT Start Date: 02/02/22 Status: Ordered Multivitamin Daily, 0 Refills, Maintenance, 02/21/20 10:55:00 EDT Start Date: 02/21/20 Status: Ordered [place]-3 oral capsule See Instructions, one daily, 0 [...] tablet, 1 Refills, Maintenance, 09/08/22 10:29:00 EST, [facility], 161, cm, 08/30/22 14:54:00 EST, Height, 88.9, kg, 08/30/22 14:54:00 EST, Dry Weight Start Date: 09/08/22 Status: Ordered Synthroid 0.05 mg oral tablet 1 tablet, By Mouth, Daily, TAKE 2TABLETS ON MONDAY, # 102 tablet, 1 Refills, Maintenance, 01/27/23 4:55:00 EDT, [facility], 161, cm, 10/28/22 13:31:00 EDT, Height, 86.9, [...] Start Date: 02/02/22 Status: Ordered Vitamin D 92616 iu oral capsule 50,000 International_Units, By Mouth, [...] Associate Professional Member Role: PCP Address: Address: [address] [place] [address]- Care Team Related Persons Name: ALBA TATE Address: [address] [place] [address]
--- OUTSIDE RECORDS SUMMARY | 2023-11-15 15:26 | XMS_ITS | Continuity of Care Document ---
Author Organization [facility] José Luis Lalit lt Address [address] [place] [address]- Care Team Providers Care Dependency Case Manager Name Role Phone Dionicio ANTON, Lucy Yanez Primary Care Physician [facility] Date(s): 08/29/22 - 09/28/22 [facility] Riccardo Ordonez Adult [address] [place] [address]- Allergies, Adverse Reactions, Alerts Substance Reaction Severity [...] 0 Refills, Maintenance, 09/03/22 19:13:00 EST, Tablet, [facility] #[id number], Partial fill upon patient request if [...] capsule, 0 Refills, Maintenance, 09/08/22 10:27:00 EST, [facility], 161, cm, 08/30/22 14:54:00 EST, Height, 88.9, kg, 08/30/22 14:54:00 EST, Dry Weight Start Date: 09/08/22 Status: Ordered glipiZIDE 5 mg oral tablet 15 mg, 3, tablet, By Mouth, Daily, for 90 days, # 270 tablet, Refills 1, Tot. Refills 1, Hard Stop 03/01/23 11:56:00 EDT, 09/02/22 11:56:00 EST, Route to Pharmacy Electronically, [facility]pharm[facility] #[id number], Partial fill upon patient request if the prescriptio... Start Date: 09/02/22 Stop Date: 03/01/23 Status: Ordered glipiZIDE 5 mg oral tablet 15 mg, 3, tablet, By Mouth, Daily, # 270 tablet, Refills 1, Tot. Refills 1, Maintenance, 03/01/23 11:56:00 EDT, Route to Pharmacy Electronically, [facility], Partial fill upon patient request if the prescription is for a schedul... Start Date: 03/01/23 Stop Date: 08/28/23 Status: Ordered hydrochlorothiazide-triamterene 25 mg-37.5 mg oral capsule 1 capsule, By Mouth, Daily, # 90 capsule, 1 Refills, Maintenance, 09/08/22 10:28:00 EST, [facility], 0, 1 capsule By Mouth Daily, 161, cm, 08/30/22 14:54:00 EST, Height, 88.9, kg, 08/30/22 14:54:00 EST, Dry Weight Start Date: 09/08/22 Status: Ordered levothyroxine 0.05 mg oral tablet See Instructions, TAKE 1 TABLET DAILY, TAKE 2 TABLETS ON MONDAY, # 102 tablet, 0 Refills, 09/08/22 10:27:00 EST, [facility], 161, cm, 08/30/22 14:54:00 EST, Height, 88.9, kg, 08/30/22 14:54:00 EST, Dry Weight Start Date: 09/08/22 Status: Ordered loratadine 10 mg oral tablet 1, tablet, By Mouth, Daily, # 90 tablet, Refills 1, Route to Pharmacy Electronically, [facility] ST[id number], 161.5, cm, 08/16/21 14:16:00 EST, Height Start [...] 90 tablet, 3 Refills, 09/08/22 10:28:00 EST, [facility], 161, cm, 08/30/22 14:54:00 EST, Height, 88.9, kg, 08/30/22 14:54:00 EST, Dry Weight Start Date: 09/08/22 Status: Ordered Magnesium Magnesium, 0 Refills, Maintenance, 02/02/22 13:23:00 EDT Start Date: 02/02/22 Status: Ordered Multivitamin Daily, 0 Refills, Maintenance, 02/21/20 10:55:00 EDT Start Date: 02/21/20 Status: Ordered [place]-3 oral capsule See Instructions, one daily, [...] tablet, 1 Refills, Maintenance, 09/08/22 10:29:00 EST, [facility], 161, cm, 08/30/22 14:54:00 EST, [...] Start Date: 02/02/22 Status: Ordered Vitamin D 65043 iu oral capsule 50,000 International_Units, By Mouth, [...] Professional Member Role: PCP Address: Address: [address] [place] [address]- Care Team Related Persons Name: ALBA TATE Address: [address] [place] [address]
--- OUTSIDE RECORDS SUMMARY | 2023-11-15 15:26 | XMS_ITS | Continuity of Care Document ---
Author Organization [facility] Riccardo Ordonez Lalit lt Address [address] [place] [address]- Care Team Providers Care Automotive Welder Name Role Phone Dionicio ANTON, Lucy Yanez Primary Care Physician Encounter [facility] [place] Date(s): 09/15/21 - 10/15/21 [facility] Riccardo Ordonez Adult [address] [place] [address]- Allergies, Adverse Reactions, Alerts Substance Reaction Severity [...] tablet, 3 Refills, 10/11/21 11:14:00 EDT, [facility], 161.5, cm, 10/11/21 10:53:00 EDT, Height Start Date: 10/11/21 Status: Ordered loratadine 10 mg oral tablet 1, tablet, By Mouth, Daily, # 90 tablet, Refills 1, Route to Pharmacy Electronically, [facility], 161.5, cm, 08/16/21 14:16:00 EST, Height Start Date: 09/03/21 Status: Ordered losartan 50 mg oral tablet 50 mg, 1, tablet, By Mouth, Daily, # 90 tablet, Refills 3, Tot. Refills 3, Maintenance, 12/30/20 11:48:00 EDT, Route to Pharmacy Electronically, [facility], 161.5, cm, 12/30/20 11:09:00 EDT, Height Start Date: 12/30/20 Status: Ordered Multivitamin Daily, 0 Refills, Maintenance, 02/21/20 10:55:00 EDT Start Date: 02/21/20 Status: Ordered Nexium 20 mg oral enteric coated capsule 1 capsule = 20 mg, By Mouth, Daily, # 90 capsule, 1 Refills, Maintenance, 09/13/21 9:37:00 EST, EC Capsule, [facility], Partial fill upon patient request if the prescription is fora schedule II opioid drug., 161.5, cm, 09/13/21 8:5... Start Date: 09/13/21 Status: Ordered Nexium Capsule See Instructions, 22 mg 1 every other day, Refills 0, Maintenance, 05/06/19 16:33:27 EDT, Instructions Replace Required Details Start Date: 05/06/19 Status: Ordered [place]-3 oral capsule See Instructions, one daily, [...]
--- OUTSIDE RECORDS SUMMARY | 2023-11-15 15:26 | XMS_ITS | Continuity of Care Document ---
Author Organization [facility] Riccardo Ordonez Lalit lt Address [address] [place] [address]- Care Team Providers Care Machine Heel Seat Laster Name Role Phone Dionicio ANTON, Lucy Yanez Primary Care Physician Encounter [facility] [place] Date(s): 01/19/22 - 01/26/22 [facility] Riccardo Ordonez Adult [address] [place] [address]- Encounter Diagnosis Type II diabetes mellitus(Discharge Diagnosis) - 01/19/22 Hypothyroidism(Discharge Diagnosis) - 01/19/22 Benign essential hypertension(Discharge Diagnosis) - 01/19/22 Hypercholesterolemia(Discharge Diagnosis) - 01/19/22 Dizziness(Discharge Diagnosis) - 01/20/22 Attending Physician: Lucy Greenberg NP Allergies, Adverse Reactions, Alerts Substance Reaction Severity [...] BNT-162b2 vac 08/19/20 Recorded zoster vaccine, inactivated 9/21/19 Recorded Medications Accu-Chek [place] Glucose Meter See [...] tablet, Refills 1, Route to Pharmacy Electronically, [facility]ORE [facility]6801, 161.5, cm, 08/16/21 14:16:00 EST, Height Start [...] Required Details Start Date: 05/06/19 Status: Ordered [place]-3 oral capsule See Instructions, one daily, 0 [...] I(Confirmed) Active Type II diabetes mellitus(Confirmed) Active Diagnosis Diagnosis Type Effective Dates Health Status Clinical Service Informant Type II diabetes mellitus Discharge Diagnosis 01/19/22 Hypothyroidism Discharge Diagnosis 01/19/22 Benign essential hypertension Discharge Diagnosis 01/19/22 Hypercholesterolemia Discharge Diagnosis 01/19/22 Dizziness Discharge Diagnosis 01/20/22 Vital Signs Most recent to oldest [Reference Range]: 1 Height 161.5 cm (01/19/22 11:39 AM) Weight 88.8 kg (01/19/22 11:39 AM) Oxygen Saturation [94-100 %] 97 % (01/19/22 11:39 AM) Pulse Rate [55-90 bpm] 88 bpm (01/19/22 11:39 AM) Body Mass Index [18.5-24.99] 34.05 *>HHI* (01/19/22 11:39 AM) Blood Pressure [90-138/55-84 mm Hg] 133/ 80mm Hg (01/19/22 11:39 AM) Temperature [96.8-100.4 DegF] 98.2 DegF (01/19/22 11:39 AM) Blood pressure sites Arm, left (01/19/22 11:39 AM) Temperature Route Temporal (01/19/22 11:39 AM) Weight Obtained Via Standing scale (01/19/22 11:39 AM) Social History Social History Type Response Smoking Status Former smoker, quit more than 30 days ago entered on: 05/16/19 Sex
--- OUTSIDE RECORDS SUMMARY | 2023-11-15 15:26 | XMS_ITS | Continuity of Care Document ---
Author Organization [facility] José Luis Lalit lt Address [address] [place] [address]- Care Team Providers Care Robotics Engineer Name Role Phone Dionicio ANTON, Lucy Yanez Primary Care Physician Encounter [facility] [place] Date(s): 11/01/21 - 12/01/21 [facility] Adult [address] [place] [address]- Allergies, Adverse Reactions, Alerts Substance Reaction Severity [...] tablet, 3 Refills, 10/11/21 11:14:00 EDT, [facility], 161.5, cm, 10/11/21 10:53:00 EDT, Height Start Date: 10/11/21 Status: Ordered loratadine 10 mg oral tablet 1, tablet, By Mouth, Daily, # 90 tablet, Refills 1, Route to Pharmacy Electronically, [facility] STORE [address]54, 161.5, cm, 08/16/21 14:16:00 EST, Height Start Date: 09/03/21 Status: Ordered losartan 50 mg oral tablet 50 mg, 1, tablet, By Mouth, Daily, # 90 tablet, Refills 3, Tot. Refills 3, Maintenance, 12/30/20 11:48:00 EDT, Route to Pharmacy Electronically, [email or web address], 161.5, cm, 12/30/20 11:09:00 EDT, Height Start Date: 12/30/20 Status: Ordered Multivitamin Daily, 0 Refills, Maintenance, 02/21/20 10:55:00 EDT Start Date: 02/21/20 Status: Ordered Nexium 20 mg oral enteric coated capsule 1 capsule = 20 mg, By Mouth, Daily, # 90 capsule, 1 Refills, Maintenance, 09/13/21 9:37:00 EST, EC Capsule, [email or web address], Partial fill upon patient request if the prescription is fora schedule II opioid drug., 161.5, cm, 09/13/21 8:5... Start Date: 09/13/21 Status: Ordered Nexium Capsule See Instructions, 22 mg 1 every other day, Refills 0, Maintenance, 05/06/19 16:33:27 EDT, Instructions Replace Required Details Start Date: 05/06/19 Status: Ordered [place]-3 oral capsule See Instructions, one daily, 0 [...]
--- OUTSIDE RECORDS SUMMARY | 2023-11-15 15:26 | XMS_ITS | Continuity of Care Document ---
Author Organization [facility] Address [address] [place] [address]- Care Team Providers Care Rehabilitation Teacher Name Role Phone Dionicio ANTON, Lucy Yanez Primary Care Physician [facility] Date(s): 08/03/22 - 09/02/22 [facility] [address] [place] [address]- Allergies, Adverse Reactions, Alerts Substance Reaction Severity [...] 09/02/22 11:56:00 EST, Route to Pharmacy Electronically, [facility]/pharmacy #[id number], Partial fill upon patient requestif the prescription is for a schedule II opioid kraig... Start Date: 09/02/22 Stop Date: 03/01/23 Status: Ordered hydrochlorothiazide-triamterene 25 mg-37.5 mg oral capsule 1 capsule, By Mouth, Daily, # 90 capsule, 1 Refills, Maintenance, 09/02/22 11:55:00 EST, [facility]/pharmacy #[id number], 0, 1 capsule By Mouth Daily, 161, cm, 08/30/22 14:54:00 EST, Height, 88.9, kg, 08/30/22 14:54:00 EST, Dry Weight Start Date: 09/02/22 Status: Ordered levothyroxine 0.05 mg oral tablet See Instructions, TAKE 1 TABLET DAILY, TAKE 2 TABLETS ON MONDAY, # 102 tablet, 3 Refills, 10/11/21 11:14:00 EDT, [facility], 161.5, cm, 10/11/21 10:53:00 EDT, Height Start Date: 10/11/21 Status: Ordered loratadine 10 mg oral tablet 1, tablet, By Mouth, Daily, # 90 tablet, Refills 1, Route to Pharmacy Electronically, [id number], 161.5, cm, 08/16/21 14:16:00 EST, Height Start Date: 09/03/21 Status: Ordered LORazepam 0.5 mg oral tablet 1 tablet = 0.5 mg, By Mouth, Daily at bedtime, for 30 days, # 30 tablet, 2 Refills, Acute 10/17/22 8:19:00 EDT, 07/19/22 8:19:00 EST, [facility], 161.3, cm, 07/15/22 9:49:00 EST, Height, 88, kg, 02/02/22 13:19:00 EDT, Dry Weight Start Date: 07/19/22 Stop Date: 10/17/22 Status: Ordered losartan 50 mg oral tablet 1 tablet, By Mouth, Daily, # 90 tablet, 3 Refills, [facility], 161.5, cm, 11/11/21 12:28:00 EDT, Height Start Date: 01/19/22 Status: Ordered Magnesium Magnesium, 0 Refills, Maintenance, 02/02/22 13:23:00 EDT Start Date: 02/02/22 Status: Ordered Multivitamin Daily, 0 Refills, Maintenance, 02/21/20 10:55:00 EDT Start Date: 02/21/20 Status: Ordered [place]-3 oral capsule See Instructions, one daily, [...] Start Date: 02/02/22 Status: Ordered Vitamin D 00547 iu oral capsule 50,000 International_Units, By Mouth, [...] Personnel Name: Dionicio ANTON, Lucy Yanez Position: [facility] Associate Professional Member Role: PCP Address: Address: [address] [place] [address]- Care Team Related Persons Name: ALBA TATE Address: home [address] [place] [address]
--- OUTSIDE RECORDS SUMMARY | 2023-11-15 15:26 | XMS_ITS | Continuity of Care Document ---
Author Organization [facility] José Luis Lalit lt Address [address] [place] [address]- Care Team Providers Care Prep Person Name Role Phone Dionicio ANTON, Luyc Yanez Primary Care Physician Encounter [facility] Date(s): 01/27/23 - 02/26/23 [facility] Riccardo Ordonez Adult [address] [place] [address]- Allergies, Adverse Reactions, Alerts Substance Reaction Severity [...] tablet, 0 Refills, Maintenance, 10/31/22 11:47:00 EDT, [id number], 161, cm, 10/28/22 13:31:00 EDT, Height, 86.9, [...] capsule, 3 Refills, Maintenance, 01/27/23 9:13:00 EDT, [facility], 161, cm, 10/28/22 13:31:00 EDT, Height, 86.9, kg, 10/28/22 13:31:00 EDT, DryWeight Start Date: 01/27/23 Status: Ordered GlipiZIDE XL 10 mg oral tablet, extended release 2 tablet = 20 mg, By Mouth, Daily, # 180 tablet, 1 Refills, Maintenance, 02/16/23 6:50:00 EDT, [facility], Partial fill upon patient request if the prescription is for a schedule II opioid drug., 161, cm, 02/07/23 11:15:00 EDT,... Start Date: 02/16/23 Status: Ordered hydrochlorothiazide-triamterene 25 mg-37.5 mg oral capsule 1 capsule, By Mouth, Daily, # 90 capsule, 1 Refills, Maintenance, 09/08/22 10:28:00 EST, [facility], 0, 1 capsule By Mouth Daily, 161, cm, 08/30/22 14:54:00 EST, Height, 88.9, kg, 08/30/22 14:54:00 EST, Dry Weight Start Date: 09/08/22 Status: Ordered loratadine 10 mg oral tablet 1, tablet, By Mouth, Daily, # 90 tablet, Refills 1, Route to Pharmacy Electronically, [id number], 161.5, cm, 08/16/21 14:16:00 EST, Height Start Date: 09/03/21 Status: Ordered losartan 50 mg oral tablet 1 tablet, By Mouth, Daily, # 90 tablet, 3 Refills, 09/08/22 10:28:00 EST, [facility], 161, cm, 08/30/22 14:54:00 [...] 10:55:00 EDT Start Date: 02/21/20 Status: Ordered [place]-3 oral capsule See Instructions, one daily, 0 [...] tablet, 1 Refills, Maintenance, 09/08/22 10:29:00 EST, [facility], 161, cm, 08/30/22 14:54:00 EST, Height, 88.9, kg, 08/30/22 14:54:00 EST, Dry Weight Start Date: 09/08/22 Status: Ordered Synthroid 0.05 mg oral tablet 1 tablet, By Mouth, Daily, TAKE 2TABLETS ON MONDAY, # 102 tablet, 1 Refills, Maintenance, 01/27/23 4:55:00 EDT, [facility], 161, cm, 10/28/22 13:31:00 [...] Start Date: 02/02/22 Status: Ordered Vitamin D 87280 iu oral capsule 50,000 International_Units, By Mouth, [...] Personnel Name: Dionicio ANTON, Lucy Yanez Position: [facility] Associate Professional Member Role: PCP Address: Address: [address] [place] [address]- Care Team Related Persons Name: ALBA TATE Address: [address] [address]
--- OUTSIDE RECORDS SUMMARY | 2023-11-15 15:26 | XMS_ITS | Continuity of Care Document ---
Author Organization [facility] Riccardo Ordonez Lalit lt Address [address] [place] [address]- Care Team Providers Care Welding Machine Operator Plasma Arc Name Role Phone Dionicio ANTON, Lucy Yanez Primary Care Physician [facility]counter [facility] Date(s): 10/12/23 - 11/11/23 [facility] Riccardo Ordonez Adult [address] [place] [address]- Allergies, Adverse Reactions, Alerts Substance Reaction Severity Status cefuroxime Active beta blockers Active Macrobid 1, 2 Active metFORMIN Diarrhea Active ALVARO inhibitors muscle pain Active Bactrim Active Latex rash Active 1Reports Macrobid causes inflammation in her lungs that presents as atypical pneumonia. 2inflammation of the lung Immunizations Given and Recorded Vaccine Date Status Refusal Reason pneumococcal 20-valent conjugate vaccine 06/09/23 Recorded RSV vaccine preF3, recombinant 05/28/23 Recorded Influenza Virus Vaccine (oldterm) 1 04/19/23 Recor ded SARS-CoV-2 mRNA ([id number]) vax 2 04/19/23 Recorded influenza virus vaccine, inactivated 04/05/22 Boyd rded influenza virus vaccine, inactivated 04/28/21 Give n influenza virus vaccine, inactivated 04/22/20 Give n influenza virus vaccine, inactivated 04/09/19 Boyd rded influenza virus vaccine, inactivated 03/28/18 Boyd rded [id number] bivalent booster vax 04/02/22 Recorded SARS-CoV-2 (COVID-19) mRNA-1273 vaccine 11/25/21 R ecorded SARS-CoV-2 (COVID-19) mRNA BNT-162b2 vac 04/22/21 Recorded SARS-CoV-2 (COVID-19) mRNA BNT-162b2 vac 09/09/20 Given SARS-CoV-2 (COVID-19) mRNA BNT-162b2 vac 08/19/20 Recorded zoster vaccine, inactivated 04/06/19 Recorded 1Result Comment: [facility] in [place] 2Result Comment: [facility] in [place] Medications Accu-Chek [place] Glucose Meter See Instructions, [...] tablet, 1 Refills, Maintenance, 09/03/23 6:59:00 EST, [facility], 161, cm, 05/16/23 10:58:00 EDT, Height, 84.7, kg, 05/04/23 15:05:00 EDT, Dry Weight Start Date: 09/03/23 Status: Ordered esomeprazole 20 mg oral enteric coated capsule 1 capsule, By Mouth, Daily, # 90 capsule, 1 Refills, Maintenance, 11/09/23 21:34:00 EDT, [facility], 161, cm, 09/19/23 7:29:00 EST, Height, 82.7, kg, 09/13/23 14:43:00 EST, DryWeight Start Date: 11/09/23 Status: Ordered Free Style Ortiz 2 Sensors Free Style Ortiz 2 Sensors, See Instructions, # 6 each, Refills 3, Tot. Refills 3, Maintenance, Change sensor every 14 days., 10/11/23 7:39:00 EDT, T2DM; E11.9; change sensor every 14 days. dispense 90 day supply, Supply, 161, cm, 09/19/23 7:29:00 EST... Start Date: 10/11/23 Status: Ordered Freestyle Ortiz 2 Pedro Freestyle Ortiz 2 Pedro, See Instructions, # 1 each, Refills 0, [...] capsule, 1 Refills, Maintenance, 09/05/23 6:39:00 EST, [facility], 90, TAKE 1 CAPSULE DAILY, 161, cm, 05/16/23 10:58:00 EDT, Height, 84.7, kg, 05/04/23 15:05:00 EDT, Dry Weight Start Date: 09/05/23 Status: Ordered Januvia 50 mg oral tablet 1 tablet = 50 mg, By Mouth, Daily, # 90 tablet, 2 Refills, Maintenance, 10/11/23 7:41:00 EDT, Tablet, [facility], Partial fill upon patient request [...] Stop 02/29/24 11:33:00 EDT, 09/02/23 11:33:00 EST, [facility], 161, cm, 02/22/23 11:03:00 EDT, [...] 10:55:00 EDT Start Date: 02/21/20 Status: Ordered [place]-3 oral capsule 0 Refills, Maintenance, 09/13/23 15:32:00 [...] tablet, 1 Refills, Maintenance, 09/05/23 23:33:00 EST, [facility], 161, cm, 05/16/23 10:58:00 EDT, Height, 84.7, kg, 05/04/23 15:05:00 EDT, Dry Weight Start Date: 09/05/23 Status: Ordered Synthroid 0.05 mg oral tablet 1 tablet, By Mouth, Daily, TAKE 2TABLETS ON MONDAY, # 102 tablet, 1 Refills, Maintenance, 11/09/23 21:33:00 EDT, [facility], 161, cm, 09/19/23 7:29:00 EST, Height, 82.7, kg, 09/13/23 14:43:00 EST, Dry Weight Start Date: 11/09/23 Status: Ordered timolol maleate 0.5% ophthalmic solution 1 drops, Eyes, Both, 2 times a day, # 10 mL, 0 Refills, Maintenance, 12/27/19 10:36:00 EDT, Solution Start Date: 12/27/19 Status: Ordered Vitamin D 89574 iu oral capsule 50,000 International_Units, By Mouth, [...] Team Personnel Name: Lucy Greenberg NP Position: [facility] PCO Associate Professional Member Role: PCP Address: Address: [address] [facility] [place] [address]- Care Team Related Persons Name: ALBA TATE Address: home [address] [place] [address]
--- OUTSIDE RECORDS SUMMARY | 2023-11-15 15:26 | XMS_ITS | Continuity of Care Document ---
Author Organization [facility] Riccardo Ordonez Lalit lt Address [address] [place] [address]- Care Team Providers Care Filling Machine Tender Name Role Phone Dionicio ANTON, Lucy Yanez Primary Care Physician [phone] Encounter [facility] Date(s): 05/16/23 - 05/23/23 [facility] Riccardo Ordonez Adult [address] [place] [address]- Encounter Diagnosis Medicare annual wellness visit, subsequent(Discharge Diagnosis) - 05/16/23 Anxiety(Discharge Diagnosis) - 05/16/23 Benign essential hypertension(Discharge Diagnosis) - 05/16/23 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, estrogen receptor positive(Discharge Diagnosis) - 05/16/23 Hypothyroidism(Discharge Diagnosis) - 05/16/23 Hypercholesterolemia(Discharge Diagnosis) - 05/16/23 Type II diabetes mellitus(Discharge Diagnosis) - 05/16/23 Attending Physician: Lucy Greenberg NP Referring Physician: Jony GATES, Wade Irwin Allergies, Adverse Reactions, Alerts Substance Reaction Severity Status cefuroxime Active beta blockers Active Macrobid 1, 2 Active Bactrim Active Latex rash Active ALVARO inhibitors muscle pain Active metFORMIN Diarrhea Active 1Reports Macrobid causes inflammation in her lungs that presents as atypical pneumonia. 2inflammation of the lung Immunizations Given and Recorded Vaccine Date Status Refusal Reason Influenza Virus Vaccine (oldterm) 1 04/19/23 Recor ded SARS-CoV-2 mRNA (iciadei-anpp-filmb) vax 2 04/19/23 Recorded influenza virus vaccine, inactivated 04/05/22 Boyd rded influenza virus vaccine, inactivated 04/28/21 Give n influenza virus vaccine, inactivated 04/22/20 Give n influenza virus vaccine, inactivated 04/09/19 Boyd rded influenza virus vaccine, inactivated 03/28/18 Boyd rded [id number] bivalent booster vax 04/02/22 Recorded SARS-CoV-2 (COVID-19) mRNA-1273 vaccine 11/25/21 R ecorded SARS-CoV-2 (COVID-19) mRNA BNT-162b2 vac 04/22/21 Recorded SARS-CoV-2 (COVID-19) mRNA BNT-162b2 vac 09/09/20 Given SARS-CoV-2 (COVID-19) mRNA BNT-162b2 vac 08/19/20 Recorded zoster vaccine, inactivated 04/06/19 Recorded 1Result Comment: [facility] in [place] 2Result Comment: [facility] [place] Medications Accu-Chek [place] Glucose Meter See Instructions, [...] tablet, 1 Refills, Maintenance, 04/09/23 17:21:00 EDT, [facility], 161, cm, 02/22/23 11:03:00 EDT, Height, 86.9, kg, 10/28/22 13:31:00 EDT, Dry Weight Start Date: 04/09/23 Status: Ordered esomeprazole 20 mg oral enteric coated capsule 1 capsule, By Mouth, Daily, # 90 capsule, 3 Refills, Maintenance, 01/27/23 9:13:00 EDT, [facility], 161, cm, 10/28/22 13:31:00 EDT, Height, 86.9, kg, 10/28/22 13:31:00 EDT, DryWeight Start Date: 01/27/23 Status: Ordered GlipiZIDE XL 10 mg oral tablet, extended release 2 tablet = 20 mg, By Mouth, Daily, # 180 tablet, 1 Refills, Maintenance, 02/16/23 6:50:00 EDT, [facility], Partial fill upon patient request if the prescription is for a schedule II opioid drug., 161, cm, 02/07/23 11:15:00 EDT,... Start Date: 02/16/23 Status: Ordered hydrochlorothiazide-triamterene 25 mg-37.5 mg oral capsule 1 capsule, By Mouth, Daily, # 90 capsule, 1 Refills, Maintenance, 04/06/23 8:40:00 EDT, [facility], 90, TAKE 1 CAPSULE [...] Acute 07/20/23 6:50:00 EST, 04/21/23 6:50:00 EDT, [facility], 161, cm, 02/22/23 11:03:00 EDT, Height, 86.9, kg, 10/28/22 13:31:00 EDT, Dry Weight Start Date: 04/21/23 Stop Date: 07/20/23 Status: Ordered losartan 50 mg oral tablet 1 tablet, By Mouth, Daily, for 90 days, # 90 tablet, 1 Refills, Physician Stop 02/29/24 11:33:00 EDT, 09/02/23 11:33:00 EST, [facility], 161, cm, 02/22/23 11:03:00 [...] tablet, 1 Refills, Maintenance, 03/09/23 9:18:00 EDT, [facility], 161, cm, 02/22/23 11:03:00 [...] Start Date: 12/27/19 Status: Ordered Vitamin D 62078 iu oral capsule 50,000 International_Units, By Mouth, [...] Active Type II diabetes mellitus Confirmed Active Diagnosis Diagnosis Type Effective Dates Health Status Clinical Service Informant Medicare annual wellness visit, subsequent Discharge Diagnosis 05/16/23 Anxiety Discharge Diagnosis 05/16/23 Benign essential hypertension Discharge Diagnosis 05/16/23 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, estrogen receptor positive Discharge Diagnosis 05/16/23 Hypothyroidism Discharge Diagnosis 05/16/23 Hypercholesterolemia Discharge Diagnosis 05/16/23 Type II diabetes mellitus Discharge Diagnosis 05/16/23 Vital Signs Most recent to oldest [Reference Range]: 1 Height 161 cm (05/16/23 10:58 AM) Weight 84.2 kg (05/16/23 10:58 AM) Oxygen Saturation [94-100 %] 99 % (05/16/23 10:58 AM) Pulse Rate [55-90 bpm] 80 bpm (05/16/23 10:58 AM) Body Mass Index [18.5-24.99 kg/m2] 32.48 kg/m2 *>HHI* (05/16/23 10:58 AM) Blood Pressure [90-138/55-84 mm Hg] 129/ 76mm Hg (05/16/23 10:58 AM) Blood pressure sites Arm, right (05/16/23 10:58 AM) Weight Obtained Via Standing scale (05/16/23 10:58 AM) Social History Social History Type Response Smoking Status Former smoker, quit more than 30 days ago entered on: 05/16/19 Sex Patient Care team information Care Team Personnel Name: Dionicio ANTON, Lucy Yanez Position: [facility]O Associate Professional Member Role: PCP Address: Address: [address] [place] [address]- Care Team Related Persons Name: ALBA TATE Address: home [address] [place] [address]
--- OUTSIDE RECORDS SUMMARY | 2023-11-15 15:26 | XMS_ITS | Continuity of Care Document ---
Author Organization [facility] Riccardo Ordonez Lalit lt Address [address] [place] [address]- Care Team Providers Care Operating Systems Specialist Name Role Phone Dionicio ANTON, Lucy Yanez Primary Care Physician Encounter [facility] [place] Date(s): 01/27/22 - 02/26/22 [facility] Riccardo Ordonez Adult [address] [place] [address]- Allergies, Adverse Reactions, Alerts Substance Reaction Severity [...] tablet, Refills 1, Route to Pharmacy Electronically, [id number], 161.5, cm, 08/16/21 14:16:00 EST, Height Start [...] 10:55:00 EDT Start Date: 02/21/20 Status: Ordered [place]-3 oral capsule See Instructions, one daily, 0 [...] Start Date: 02/02/22 Status: Ordered Vitamin D 06038 iu oral capsule 50,000 International_Units, By Mouth, [...]
--- OUTSIDE RECORDS SUMMARY | 2023-11-15 15:26 | XMS_ITS | Continuity of Care Document ---
Author Organization [facility] José Luis Lalit lt Address [address] [place] [address]- Care Team Providers Care Packaging Designer Name Role Phone Dionicio ANTON, Lucy Yanez Primary Care Physician En[place] [facility] [place] Date(s): 09/16/21 - 10/16/21 [facility] Riccardo Ordonez Adult [address] [place] [address]- Allergies, Adverse Reactions, Alerts Substance Reaction Severity [...] tablet, 3 Refills, 10/11/21 11:14:00 EDT, [facility], 161.5, cm, 10/11/21 10:53:00 EDT, Height Start Date: 10/11/21 Status: Ordered loratadine 10 mg oral tablet 1, tablet, By Mouth, Daily, # 90 tablet, Refills 1, Route to Pharmacy Electronically, [facility], 161.5, cm, 08/16/21 14:16:00 EST, Height Start Date: 09/03/21 Status: Ordered losartan 50 mg oral tablet 50 mg, 1, tablet, By Mouth, Daily, # 90 tablet, Refills 3, Tot. Refills 3, Maintenance, 12/30/20 11:48:00 EDT, Route to Pharmacy Electronically, [facility], 161.5, cm, 12/30/20 11:09:00 EDT, Height Start Date: 12/30/20 Status: Ordered Multivitamin Daily, 0 Refills, Maintenance, 02/21/20 10:55:00 EDT Start Date: 02/21/20 Status: Ordered Nexium 20 mg oral enteric coated capsule 1 capsule = 20 mg, By Mouth, Daily, # 90 capsule, 1 Refills, Maintenance, 09/13/21 9:37:00 EST, EC Capsule, [facility], Partial fill upon patient request if the prescription is fora schedule II opioid drug., 161.5, cm, 09/13/21 8:5... Start Date: 09/13/21 Status: Ordered Nexium Capsule See Instructions, 22 mg 1 every other day, Refills 0, Maintenance, 05/06/19 16:33:27 EDT, Instructions Replace Required Details Start Date: 05/06/19 Status: Ordered [place]-3 oral capsule See Instructions, one daily, 0 [...]
--- OUTSIDE RECORDS SUMMARY | 2023-11-15 15:26 | XMS_ITS | Continuity of Care Document ---
Author Organization [facility] José Luis Lalit lt Address [address] [place] [address]- Care Team Providers Care Taper Machine Name Role Phone Dionicio ANTON, Lucy Yanez Primary Care Physician [phone] [place] [facility] [place]20 - 05/02/20 [facility] Adult [address] [place] [address]- [facility] Allergies, Adverse Reactions, Alerts Substance Reaction Severity [...] Date: 02/10/20 Stop Date: 03/11/20 Status: Ordered losartan 50 mg oral tablet 50 mg, 1, tablet, By Mouth, Daily, # 90 tablet, Refills 3, Tot. Refills 3, Maintenance, 01/14/20 11:31:00 EDT, Route to Pharmacy Electronically, [facility], 161.5, cm, 01/07/20 15:02:00 EDT, Height Start Date: 01/14/20 Status: Ordered metFORMIN 500 mg oral tablet, extended release 1 tablet = 500 mg, By Mouth, 2 times a day, replace short acting, # 180 tablet, 3 Refills, Maintenance, 01/14/20 11:32:00 EDT, [facility], 161.5, cm, 01/07/20 15:02:00 EDT, Height Start Date: 01/14/20 Status: Ordered Multivitamin Daily, 0 Refills, Maintenance, 02/21/20 10:55:00 EDT Start Date: 02/21/20 Status: Ordered Nexium Capsule See Instructions, 22 mg 1 every other day, Refills 0, Maintenance, 05/06/19 16:33:27 EDT, Instructions Replace Required Details Start Date: 05/06/19 Status: Ordered [place]-3 oral capsule See Instructions, one daily, 0 [...]
--- OUTSIDE RECORDS SUMMARY | 2023-11-15 15:27 | XMS_ITS | Continuity of Care Document ---
Author Organization [facility] José Luis Lalit Address [address] [place] [address]- Care Team Providers Care Wood Dowel Machine Operator Name Role Phone Dionicio ANTON, Lucy Yanez Primary Care Physician Encounter [facility] [place] Date(s): 04/17/20 - 05/17/20 [facility] Adult [address] [place] [address]- [facility] Allergies, Adverse Reactions, Alerts Substance Reaction [...] 3 Refills, Maintenance, 01/14/20 11:32:00 EDT, [facility], 161.5, cm, 01/07/20 15:02:00 EDT, Height Start Date: 01/14/20 Status: Ordered Multivitamin Daily, 0 Refills, Maintenance, 02/21/20 10:55:00 EDT Start Date: 02/21/20 Status: Ordered Nexium Capsule See Instructions, 22 mg 1 every other day, Refills 0, Maintenance, 05/06/19 16:33:27 EDT, Instructions Replace Required Details Start Date: 05/06/19 Status: Ordered [place]-3 oral capsule See Instructions, one daily, 0 [...]
--- OUTSIDE RECORDS SUMMARY | 2023-11-15 15:27 | XMS_ITS | Continuity of Care Document ---
Author Organization [facility] José Luis Lalit lt Address [address] [place] [address]- Care Team Providers Care Milk Inspector Name Role Phone Dionicio ANTON, Lucy Yanez Primary Care Physician [phone] [place] [facility] [place] 03/16/23 - 04/15/23 [facility] Adult [address] [place] [address]- Allergies, Adverse Reactions, Alerts Substance Reaction Severity [...] tablet, 1 Refills, Maintenance, 04/09/23 17:21:00 EDT, [facility], 161, cm, 02/22/23 11:03:00 EDT, Height, 86.9, kg, 10/28/22 13:31:00 EDT, Dry Weight Start Date: 04/09/23 Status: Ordered Cipro 250 mg oral tablet 1 tablet = 250 mg, By Mouth, Every 12 hours, for 5 days, # 10 tablet, 0 Refills, Acute 04/19/23 11:36:00 EDT, 04/14/23 11:36:00 EDT, [facility] #[id number], Partial fill upon patient request if the prescription is for a schedule II opioid drug., 161, cm,... Start Date: 04/14/23 Stop Date: 04/19/23 Status: Ordered Collagen 0 Refills, Maintenance, 02/02/22 13:24:00 EDT, Partial fill upon patient request if the prescription is for a schedule II opioid drug. Start Date: 02/02/22 Status: Ordered esomeprazole 20 mg oral enteric coated capsule 1 capsule, By Mouth, Daily, # 90 capsule, 3 Refills, Maintenance, 01/27/23 9:13:00 EDT, [facility], 161, cm, 10/28/22 13:31:00 EDT, Height, 86.9, kg, 10/28/22 13:31:00 EDT, DryWeight Start Date: 01/27/23 Status: Ordered GlipiZIDE XL 10 mg oral tablet, extended release 2 tablet = 20 mg, By Mouth, Daily, # 180 tablet, 1 Refills, Maintenance, 02/16/23 6:50:00 EDT, [facility], Partial fill upon patient request if the prescription is for a schedule II opioid drug., 161, cm, 02/07/23 11:15:00 EDT,... Start Date: 02/16/23 Status: Ordered hydrochlorothiazide-triamterene 25 mg-37.5 mg oral capsule 1 capsule, By Mouth, Daily, # 90 capsule, 1 Refills, Maintenance, 04/06/23 8:40:00 EDT, [facility], 90, TAKE 1 CAPSULE DAILY, 161, cm, 02/22/23 11:03:00 EDT, Height, 86.9, kg, 10/28/22 13:31:00 EDT, Dry Weight Start Date: 04/06/23 Status: Ordered loratadine 10 mg oral tablet 1, tablet, By Mouth, Daily, # 90 tablet, Refills 1, Route to Pharmacy Electronically, [id number], 161.5, cm, 08/16/21 14:16:00 EST, Height Start Date: 09/03/21 Status: Ordered losartan 50 mg oral tablet 1 tablet, By Mouth, Daily, for 90 days, # 90 tablet, 1 Refills, Physician Stop 02/29/24 11:33:00 EDT, 09/02/23 11:33:00 EST, [facility], 161, cm, 02/22/23 11:03:00 EDT, Height,86.9, kg, 10/28/22 13:31:00 EDT, Dry Weight Start Date: 09/02/23 Stop Date: 02/29/24 Status: Ordered losartan 50 mg oral tablet 1 tablet, By Mouth, Daily, for 90 days, # 90 tablet, 1 Refills, Physician Stop 09/02/23 11:33:00 EST, 03/06/23 11:33:00 EDT, [facility] #[id number], 161, cm, 02/22/23 11:03:00 EDT, Height, [...] 10:55:00 EDT Start Date: 02/21/20 Status: Ordered Rosalie-3 oral capsule See Instructions, one daily, 0 [...] Start Date: 02/02/22 Status: Ordered Vitamin D 77788 iu oral capsule 50,000 International_Units, By Mouth, [...] Associate Professional Member Role: PCP Address: Address: [address] [place] [address]- Care Team Related Persons Name: ALBA TATE Address: [address] [place] [address]
--- OUTSIDE RECORDS SUMMARY | 2023-11-15 15:27 | XMS_ITS | Continuity of Care Document ---
Author Organization [facility] José Luis Lalit lt Address [address] [place] [address]- Care Team Providers Care Dairy Processing Supervisor Name Role Phone Dionicio ANTON, Lucy Yanez Primary Care Physician [facility] Date[facility] 04[facility]14[facility]22 - 05/14/[address] [facility] Riccardo Ordonez Adult [address] [place] [address]- Allergies, Adverse Reactions, Alerts Substance Reaction Severity [...] tablet, Refills 1, Route to Pharmacy Electronically, [id number], 161.5, cm, 08/16/21 14:16:00 EST, Height Start [...] 10:55:00 EDT Start Date: 02/21/20 Status: Ordered [place]-3 oral capsule See Instructions, one daily, 0 [...] Start Date: 02/02/22 Status: Ordered Vitamin D 27158 iu oral capsule 50,000 International_Units, By Mouth, [...] Name: Dionicio ANTON, Lucy Yanez Address: Address: [address] [place] [id number]
--- OUTSIDE RECORDS SUMMARY | 2023-11-15 15:27 | XMS_ITS | Continuity of Care Document ---
Author Organization [facility] José Luis Lalit lt Address [address] [place] [address]- Care Team Providers Care Asset Protection Representative Name Role Phone Dionicio ANTON, Lucy Yanez Primary Care Physician [facility] Date(s): 05/12/23 - 06/11/23 [facility] [place] Adult [address] [place] [address]- Allergies, Adverse Reactions, Alerts Substance Reaction Severity [...] (oldterm) 1 04/19/23 Recor ded SARS-CoV-2 mRNA (brtiylx-aorm-rxwge) vax 2 04/19/23 Recorded influenza virus vaccine, inactivated 04/05/22 Boyd rded influenza virus vaccine, inactivated 04/28/21 Give n influenza virus vaccine, inactivated 04/22/20 Give n influenza virus vaccine, inactivated 04/09/19 Boyd rded influenza virus vaccine, inactivated 03/28/18 Boyd rded [id number] bivalent booster vax 04/02/22 Recorded SARS-CoV-2 (COVID-19) mRNA-1273 vaccine 11/25/21 R ecorded SARS-CoV-2 (COVID-19) mRNA BNT-162b2 vac 04/22/21 Recorded SARS-CoV-2 (COVID-19) mRNA BNT-162b2 vac 09/09/20 Given SARS-CoV-2 (COVID-19) mRNA BNT-162b2 vac 08/19/20 Recorded zoster vaccine, inactivated 04/06/19 Recorded 1Result Comment: [facility] [place] 2Result Comment: [facility] [place] Medications Accu-Chek [place] Glucose Meter See Instructions, [...] tablet, 1 Refills, Maintenance, 04/09/23 17:21:00 EDT, [facility], 161, cm, 02/22/23 [...] capsule, 1 Refills, Maintenance, 04/06/23 8:40:00 EDT, [facility], 90, TAKE 1 [...] Acute 07/20/23 6:50:00 EST, 04/21/23 6:50:00 EDT, [facility], 161, cm, 02/22/23 11:03:00 EDT, Height, [...] Start Date: 12/27/19 Status: Ordered Vitamin D 16080 iu oral capsule 50,000 International_Units, By Mouth, [...] Personnel Name: Dionicio ANTON, Lucy Yanez Position: [facility] PCO Associate Professional Member Role: PCP Address: Address: [address] [place] [phone]- Care Team Related Persons Name: ALBA TATE Address: home [address] [place] [address]
--- OUTSIDE RECORDS SUMMARY | 2023-11-15 15:27 | XMS_ITS | Continuity of Care Document ---
Author Organization [facility] Riccardo Ordonez Lalit lt Address [address] [place] [address]- Care Team Providers Care Sugar Cane Planter Machine Operator Name Role Phone Dionicio ANTON, Lucy Yanez Primary Care Physician [facility] Date[facility]s): 10/05/23 - 11/04/23 [facility] Riccardo Ordonez Adult [address] [place] [address]- Allergies, Adverse Reactions, Alerts Substance Reaction Severity Status cefuroxime Active beta blockers Active ALVARO inhibitors muscle pain Active metFORMIN Diarrhea Active Macrobid 1, 2 Active Bactrim Active Latex rash Active 1Reports Macrobid causes inflammation in her lungs that presents as atypical pneumonia. 2inflammation of the lung Immunizations Given and Recorded Vaccine Date Status Refusal Reason pneumococcal 20-valent conjugate vaccine 06/09/23 Recorded RSV vaccine preF3, recombinant 05/28/23 Recorded Influenza Virus Vaccine (oldterm) 1 04/19/23 Recor ded SARS-CoV-2 mRNA (wauuvsy-lmrk-zfyqt) vax 2 04/19/23 Recorded influenza virus vaccine, inactivated 04/05/22 Boyd rded influenza virus vaccine, inactivated 04/28/21 Give n influenza virus vaccine, inactivated 04/22/20 Give n influenza virus vaccine, inactivated 04/09/19 Boyd rded influenza virus vaccine, inactivated 03/28/18 Boyd rded [id number] bivalent booster vax 04/02/22 Recorded SARS-CoV-2 (COVID-19) mRNA-1273 vaccine 11/25/21 R ecorded SARS-CoV-2 (COVID-19) mRNA BNT-162b2 vac 04/22/21 Recorded SARS-CoV-2 (COVID-19) mRNA BNT-162b2 vac 09/09/20 Given SARS-CoV-2 (COVID-19) mRNA BNT-162b2 vac 08/19/20 Recorded zoster vaccine, inactivated 04/06/19 Recorded 1Result Comment: [facility] [place] 2Result Comment: [facility] [place] Medications Accu-Chek [place] Glucose Meter See Instructions, [...] 1 Refills, Maintenance, 09/03/23 6:59:00 EST, [facility], 161, cm, 05/16/23 10:58:00 EDT, Height, 84.7, kg, 05/04/23 15:05:00 EDT, Dry Weight Start Date: 09/03/23 Status: Ordered esomeprazole 20 mg oral enteric coated capsule 1 capsule, By Mouth, Daily, # 90 capsule, 3 Refills, Maintenance, 01/27/23 9:13:00 EDT, [facility], 161, cm, 10/28/22 13:31:00 EDT, Height, [...] Date: 10/11/23 Status: Ordered Freestyle Ortiz 2 [place] Freestyle Ortiz 2 [place], See Instructions, # 1 each, Refills 0, [...] 1 Refills, Maintenance, 09/05/23 6:39:00 EST, [facility], 90, TAKE 1 CAPSULE DAILY, 161, cm, 05/16/23 10:58:00 EDT, Height, 84.7, kg, 05/04/23 15:05:00 EDT, Dry Weight Start Date: 09/05/23 Status: Ordered Januvia 50 mg oral tablet 1 tablet = 50 mg, By Mouth, Daily, # 90 tablet, 2 Refills, Maintenance, 10/11/23 7:41:00 EDT, Tablet, [facility], Partial fill upon patient [...] 02/29/24 11:33:00 EDT, 09/02/23 11:33:00 EST, [facility], 161, cm, 02/22/23 11:03:00 [...] 10:55:00 EDT Start Date: 02/21/20 Status: Ordered Leslie-3 oral capsule 0 Refills, Maintenance, 09/13/23 15:32:00 [...] 09/05/23 23:33:00 EST, [facility], 161, cm, 05/16/23 10:58:00 EDT, Height, 84.7, kg, 05/04/23 15:05:00 EDT, Dry Weight Start Date: 09/05/23 Status: Ordered Synthroid 0.05 mg oral tablet 1 tablet, By Mouth, Daily, TAKE 2TABLETS ON MONDAY, # 102 tablet, 1 Refills, Maintenance, 06/20/23 10:22:00 EST, [facility], 161, cm, 05/16/23 10:58:00 EDT, Height, 84.7, kg, 05/04/23 15:05:00 EDT, Dry Weight Start Date: 06/20/23 Status: Ordered timolol maleate 0.5% ophthalmic solution 1 drops, Eyes, Both, 2 times a day, # 10 mL, 0 Refills, Maintenance, 12/27/19 10:36:00 EDT, Solution Start Date: 12/27/19 Status: Ordered Vitamin D 56743 iu oral capsule 50,000 International_Units, By Mouth, [...] Team Personnel Name: Lucy Greenberg NP Position: [facility] PCO Associate Professional Member Role: PCP Address: Address: [address] [facility] [place] Adult [facility] [place] [address]- Care Team Related Persons Name: ALBA TATE Address: home [address] [place] [address]
--- OUTSIDE RECORDS SUMMARY | 2023-11-15 15:27 | XMS_ITS | Continuity of Care Document ---
[facility] Address [address], [address] [place] [address]- Care Team Providers Care Charge Nurse Name Role Phone Dionicio ANTON, Lucy Yanez Primary Care Physician [phone] Encounter [facility] [place] Date(s): 02/14/22 - 03/16/22 [facility] Leisa Mcghees [facility] [address], 4th [place] [address]- Allergies, Adverse Reactions, Alerts Substance Reaction Severity [...] tablet, Refills 1, Route to Pharmacy Electronically, [id number], 161.5, cm, 08/16/21 14:16:00 EST, Height Start [...] 10:55:00 EDT Start Date: 02/21/20 Status: Ordered [place]-3 oral capsule See Instructions, one daily, 0 [...] Start Date: 02/02/22 Status: Ordered Vitamin D 67133 iu oral capsule 50,000 International_Units, By Mouth, [...] 30 days ago entered on: 05/16/19 Sex Care Team Personnel Name: Lucy Greenberg NP Address: [address] [place], [place] [address]
--- OUTSIDE RECORDS SUMMARY | 2023-11-15 15:27 | XMS_ITS | Continuity of Care Document ---
Author Organization [facility] Riccardo Ordonez Lalit lt Address [address] [place] [address]- Care Team Providers Care Resident Hall Director Name Role Phone Dionicio ANTON, Lucy Yanez Primary Care Physician [phone] Encounter [facility] [place] Date(s): 04/04/22 - 05/04/22 [facility] Riccardo Ordonez Adult [address] [place] [address]- Allergies, Adverse Reactions, Alerts Substance Reaction Severity Status cefuroxime Active beta blockers Active Macrobid 1, 2 Active Latex rash Active metFORMIN Diarrhea Active ALVARO inhibitors muscle pain Active 1Reports [...] tablet, Refills 1, Route to Pharmacy Electronically, [facility] [id number], 161.5, cm, 08/16/21 14:16:00 EST, Height Start [...] 10:55:00 EDT Start Date: 02/21/20 Status: Ordered [place]-3 oral capsule See Instructions, one daily, 0 [...] Start Date: 02/02/22 Status: Ordered Vitamin D 15632 iu oral capsule 50,000 International_Units, By Mouth, [...] Sex Patient Care team information Personnel Name: Dinoicio ANTON, Lucy Yanez Address: Address: [address] [place] [id number]
--- OUTSIDE RECORDS SUMMARY | 2023-11-15 15:27 | XMS_ITS | Continuity of Care Document ---
Author Organization [facility] José Luis Lalit lt Address [address] [place] [address]- Care Team Providers Care Special Education Instructor Name Role Phone Dionicio ANTON, Lucy Yanez Primary Care Physician [place] [facility] [place]11[place]21 - 10/18/21 [facility] Adult [address] [place] [address]- Encounter Diagnosis Hypothyroidism(Discharge Diagnosis) - 10/11/21 Type II diabetes mellitus(Discharge Diagnosis) - 10/11/21 Attending Physician: Dionicio ANTON, Lucy Yanez Allergies, Adverse Reactions, Alerts Substance Reaction Severity [...] tablet, Refills 1, Route to Pharmacy Electronically, [facility] 924[facility], 161.5, cm, 08/16/21 14:16:00 EST, Height Start Date: 09/03/21 Status: Ordered losartan 50 mg oral tablet 50 mg, 1, tablet, By Mouth, Daily, # 90 tablet, Refills 3, Tot. Refills 3, Maintenance, 12/30/20 11:48:00 EDT, Route to Pharmacy Electronically, [facility], 161.5, cm, 12/30/20 11:09:00 EDT, [...] Required Details Start Date: 05/06/19 Status: Ordered [place]-3 oral capsule See Instructions, one daily, 0 [...] Effective Dates Health Status Clinical Service Informant Hypothyroidism Discharge Diagnosis 10/11/21 Type II diabetes mellitus Discharge Diagnosis 10/11/21 Vital Signs Most recent to oldest [Reference Range]: 1 Height 161.5 cm (10/11/21 10:53 AM) Weight 85.9 kg (10/11/21 10:53 AM) Body Mass Index [18.5-24.99] 32.93 *>HHI* (10/11/21 10:53 AM) Social History Social History Type Response Smoking Status Former smoker, quit more than 30 days ago entered on: 05/16/19 Sex
--- OUTSIDE RECORDS SUMMARY | 2023-11-15 15:27 | XMS_ITS | Continuity of Care Document ---
Author Organization [facility] José Luis Lalit lt Address [address] [place] [address]- Care Team Providers Care Final Cleaner Name Role Phone Dionicio ANTON, Lucy Yanez Primary Care Physician [place] [facility] [place] 03/14/23 - 04/13/23 [facility] Riccardo Ordonez Adult [address] [place] [address]- Allergies, Adverse Reactions, Alerts Substance Reaction Severity [...] tablet, 1 Refills, Maintenance, 04/09/23 17:21:00 EDT, [facility], 161, cm, 02/22/23 [...] capsule, 3 Refills, Maintenance, 01/27/23 9:13:00 EDT, [facility], 161, cm, 10/28/22 13:31:00 EDT, Height, 86.9, kg, 10/28/22 13:31:00 EDT, DryWeight Start Date: 01/27/23 Status: Ordered GlipiZIDE XL 10 mg oral tablet, extended release 2 tablet = 20 mg, By Mouth, Daily, # 180 tablet, 1 Refills, Maintenance, 02/16/23 6:50:00 EDT, [facility], Partial fill upon patient request if the prescription is for a schedule II opioid drug., 161, cm, 02/07/23 11:15:00 EDT,... Start Date: 02/16/23 Status: Ordered hydrochlorothiazide-triamterene 25 mg-37.5 mg oral capsule 1 capsule, By Mouth, Daily, # 90 capsule, 1 Refills, Maintenance, 04/06/23 8:40:00 EDT, [facility], 90, TAKE 1 CAPSULE DAILY, 161, cm, 02/22/23 11:03:00 EDT, Height, 86.9, kg, 10/28/22 13:31:00 EDT, Dry Weight Start Date: 04/06/23 Status: Ordered loratadine 10 mg oral tablet 1, tablet, By Mouth, Daily, # 90 tablet, Refills 1, Route to Pharmacy Electronically, [id number], 161.5, cm, 08/16/21 14:16:00 EST, Height Start [...] Stop 09/02/23 11:33:00 EST, 03/06/23 11:33:00 EDT, [facility] #[id number], 161, cm, 02/22/23 11:03:00 EDT, [...] 10:55:00 EDT Start Date: 02/21/20 Status: Ordered [place]-3 oral capsule See Instructions, one daily, 0 [...] Start Date: 02/02/22 Status: Ordered Vitamin D 17712 iu oral capsule 50,000 International_Units, By Mouth, [...] Professional Member Role: PCP Address: Address: [address] [place] [address]- Care Team Related Persons Name: ALBA TATE Address: home [address] [place] [address]
--- OUTSIDE RECORDS SUMMARY | 2023-11-15 15:27 | XMS_ITS | Continuity of Care Document ---
Author Organization [facility] Riccardo Ordonez Lalit lt Address [address] [place] [address]- Care Team Providers Care Truck Driver Teamster Name Role Phone Dionicio ANTON, Lucy Yanez Primary Care Physician [facility] Date(s): 09/26/23 - 10/26/23 [facility] Rcicardo Ordonez Adult [address] [place] [address]- Allergies, Adverse Reactions, Alerts Substance Reaction Severity [...] (oldterm) 1 04/19/23 Recor ded SARS-CoV-2 mRNA (mfhrpep-zmwj-zqukz) vax 2 04/19/23 Recorded influenza virus vaccine, inactivated 04/05/22 Boyd rded influenza virus vaccine, inactivated 04/28/21 Give n influenza virus vaccine, inactivated 04/22/20 Give n influenza virus vaccine, inactivated 04/09/19 Boyd rded influenza virus vaccine, inactivated 03/28/18 Boyd rded [id number] bivalent booster vax 04/02/22 Recorded SARS-CoV-2 (COVID-19) mRNA-1273 vaccine 11/25/21 R ecorded SARS-CoV-2 (COVID-19) mRNA BNT-162b2 vac 04/22/21 Recorded SARS-CoV-2 (COVID-19) mRNA BNT-162b2 vac 09/09/20 Given SARS-CoV-2 (COVID-19) mRNA BNT-162b2 vac 08/19/20 Recorded zoster vaccine, inactivated 04/06/19 Recorded 1Result Comment: [facility] [place] 2Result Comment: [facility] [place] Medications Accu-Chek [place] Glucose Meter See Instructions, [...] 1 Refills, Maintenance, 09/03/23 6:59:00 EST, [facility], 161, cm, 05/16/23 10:58:00 EDT, Height, 84.7, kg, 05/04/23 15:05:00 EDT, Dry Weight Start Date: 09/03/23 Status: Ordered esomeprazole 20 mg oral enteric coated capsule 1 capsule, By Mouth, Daily, # 90 capsule, 3 Refills, Maintenance, 01/27/23 9:13:00 EDT, [facility], [facility], cm, 10/28/22 13:31:00 EDT, Height, [...] Date: 10/11/23 Status: Ordered Freestyle Ortiz 2 [place] Freestyle Ortiz 2 [place], See Instructions, # 1 each, Refills 0, [...] 1 Refills, Maintenance, 09/05/23 6:39:00 EST, [facility], 90, TAKE 1 CAPSULE DAILY, 161, cm, 05/16/23 10:58:00 EDT, Height, 84.7, kg, 05/04/23 15:05:00 EDT, Dry Weight Start Date: 09/05/23 Status: Ordered Januvia 50 mg oral tablet 1 tablet = 50 mg, By Mouth, Daily, # 90 tablet, 2 Refills, Maintenance, 10/11/23 7:41:00 EDT, Tablet, [facility], Partial fill [...] 10:55:00 EDT Start Date: 02/21/20 Status: Ordered [place]-3 oral capsule 0 Refills, Maintenance, 09/13/23 15:32:00 [...] tablet, 1 Refills, Maintenance, 09/05/23 23:33:00 EST, [facility], 161, cm, 05/16/23 10:58:00 EDT, Height, 84.7, kg, 05/04/23 15:05:00 EDT, Dry Weight Start Date: 09/05/23 Status: Ordered Synthroid 0.05 mg oral tablet 1 tablet, By Mouth, Daily, TAKE 2TABLETS ON MONDAY, # 102 tablet, 1 Refills, Maintenance, 06/20/23 10:22:00 EST, [facility], 161, cm, 05/16/23 10:58:00 EDT, Height, 84.7, kg, 05/04/23 15:05:00 EDT, Dry Weight Start Date: 06/20/23 Status: Ordered timolol maleate 0.5% ophthalmic solution 1 drops, Eyes, Both, 2 times a day, # 10 mL, 0 Refills, Maintenance, 12/27/19 10:36:00 EDT, Solution Start Date: 12/27/19 Status: Ordered Vitamin D 13075 iu oral capsule 50,000 International_Units, By Mouth, [...] Team Personnel Name: Lucy Greenberg NP Position: [facility] PCO Associate Professional Member Role: PCP Address: Address: [address] [facility] Adult [facility] [place] [address]- Care Team Related Persons Name: ALBA TATE Address: home [address] [place] [address]
--- OUTSIDE RECORDS SUMMARY | 2023-11-15 15:27 | XMS_ITS | Continuity of Care Document ---
Author Organization [facility] José Luis Lalit lt Address [address] [place] [address]- Care Team Providers Care Ramp Agent Name Role Phone Dionicio ANTON, Lucy Yanez Primary Care Physician [phone] En[place] [id number] Date(s): 08/06/19 - 12/04/19 [facility] Adult [address] [place] [address]- [facility] Attending Physician: Lucy Greenberg NP Referring Physician: Jony GATES, Wade Irwin Allergies, Adverse Reactions, Alerts Substance Reaction Severity Status Latex rash Active ALVARO inhibitors muscle pain Active Medications Ativan 0.5 mg oral tablet See Instructions, PRN for anxiety, 1 tablet By Mouth prn anxiety, 0 Refills, Maintenance, 05/07/19 16:46:23 EDT, Tablet Start Date: 05/07/19 Status: Ordered Crestor 10 mg oral tablet 1 tablet = 10 mg, By Mouth, Daily, # 30 tablet, 0 Refills, Maintenance, 05/06/19 16:29:17 EDT, Tablet Start Date: 05/06/19 Status: Ordered hydrochlorothiazide-triamterene 25 mg-37.5 mg oral capsule 1 capsule, By Mouth, Daily, # 30 capsule, 0 Refills, Maintenance, 05/06/19 16:31:41 EDT, Capsule Start Date: 05/06/19 Status: Ordered hydrochlorothiazide-triamterene 25 mg-37.5 mg oral capsule 1 capsule, By Mouth, Daily, # 90 capsule, 3 Refills, Maintenance, 06/25/19 3:46:04 EST, Capsule, 1 capsule By Mouth Daily, 161.5, cm, 05/16/19 9:52:34 EDT, Height Start Date: 06/25/19 Status: Ordered levothyroxine 25 mcg (0.025 mg) oral capsule 1 capsule = 25 mcg, By Mouth, Daily, 0 Refills, Maintenance, 05/06/19 16:32:27 EDT Start Date: 05/06/19 Status: Ordered losartan 25 mg oral tablet 25 mg, 1, tablet, By Mouth, Daily, # 30 tablet, Refills 0, Maintenance, 05/06/19 16:30:15 EDT Start Date: 05/06/19 Status: Ordered metFORMIN 500 mg oral tablet 1 tablet = 500 mg, By Mouth, 2 times a day, 0 Refills, Maintenance, 05/14/19 15:20:51 EDT Start Date: 05/14/19 Status: Ordered Nexium Capsule See Instructions, 22 mg 1 every other day, Refills 0, Maintenance, 05/06/19 16:33:27 EDT, Instructions Replace Required Details Start Date: 05/06/19 Status: Ordered [place]-3 oral capsule See Instructions, one daily, 0 Refills, Maintenance, 05/07/19 16:47:12 EDT Start Date: 05/07/19 Status: Ordered Problem List Condition Effective Dates Status Health Status Inform ant Anxiety(Confirmed) Active Benign essential hypertension(Confirmed) Active Glaucoma(Confirmed) Active Hypercholesterolemia(Confirmed) Active Hypothyroidism(Confirmed) Active Type II diabetes mellitus(Confirmed) Active Social History Social History Type Response Smoking Status Former smoker, quit more than 30 days ago entered on: 05/16/19 Sex
--- OUTSIDE RECORDS SUMMARY | 2023-11-15 15:27 | XMS_ITS | Continuity of Care Document ---
Author Organization [facility] José Luis Lalit lt Address [address] [place] [address]- Care Team Providers Care Records Management Coordinator Name Role Phone Dionicio ANTON, Lucy Yanez Primary Care Physician [facility]counter [facility] Date(s): 11/07/22 - 12/07/22 [facility] Riccardo Ordonez Adult [address] [place] [address]- Allergies, Adverse Reactions, Alerts Substance Reaction Severity [...] tablet, 0 Refills, Maintenance, 10/31/22 11:47:00 EDT, [facility] 11284, 161, cm, 10/28/22 13:31:00 EDT, Height, 86.9, [...] capsule, 0 Refills, Maintenance, 12/01/22 16:17:00 EDT, [facility] 61950, 161, cm, 10/28/22 13:31:00 EDT, Height, 86.9, kg, 10/28/22 13:31:00 EDT, Dry Weight Start Date: 12/01/22 Status: Ordered glipiZIDE 10 mg oral tablet, extended release 1 tablet = 10 mg, By Mouth, Daily, # 90 tablet, 1 Refills, Maintenance, 12/02/22 14:40:00 EDT, [facility], Partial fill upon patient request if the prescription is for a schedule II opioid drug., 161, cm, 10/28/22 13:31:00 EDT,... Start Date: 12/02/22 Status: Ordered hydrochlorothiazide-triamterene 25 mg-37.5 mg oral capsule 1 capsule, By Mouth, Daily, # 90 capsule, 1 Refills, Maintenance, 09/08/22 10:28:00 EST, [facility], 0, 1 capsule By Mouth Daily, 161, cm, 08/30/22 14:54:00 EST, Height, 88.9, kg, 08/30/22 14:54:00 EST, Dry Weight Start Date: 09/08/22 Status: Ordered levothyroxine 0.05 mg oral tablet See Instructions, TAKE 1 TABLET DAILY, TAKE 2 TABLETS ON MONDAY, # 102 tablet, 0 Refills, Maintenance, 12/01/22 16:17:00 EDT, [facility] 18481, 161, cm, 10/28/22 13:31:00 EDT, Height, 86.9, kg, 10/28/22 13:31:00 EDT, Dry Weight Start Date: 12/01/22 Status: Ordered loratadine 10 mg oral tablet 1, tablet, By Mouth, Daily, # 90 tablet, Refills 1, Route to Pharmacy Electronically, [facility] 25771, 161.5, cm, 08/16/21 14:16:00 EST, Height Start Date: 09/03/21 Status: Ordered losartan 50 mg oral tablet 1 tablet, By Mouth, Daily, # 90 tablet, 3 Refills, 09/08/22 10:28:00 EST, [facility], 161, cm, 08/30/22 14:54:00 EST, Height, 88.9, kg, 08/30/22 14:54:00 EST, Dry Weight Start Date: 09/08/22 Status: Ordered Magnesium Magnesium, 0 Refills, Maintenance, 02/02/22 13:23:00 EDT Start Date: 02/02/22 Status: Ordered Multivitamin Daily, 0 Refills, Maintenance, 02/21/20 10:55:00 EDT Start Date: 02/21/20 Status: Ordered [place]-3 oral capsule See Instructions, one daily, 0 [...] tablet, 1 Refills, Maintenance, 09/08/22 10:29:00 EST, [facility], 161, cm, 08/30/22 [...] Start Date: 02/02/22 Status: Ordered Vitamin D 92323 iu oral capsule 50,000 International_Units, By Mouth, [...] Associate Professional Member Role: PCP Address: Address: [address] [place] [address]- Care Team Related Persons Name: ALBA TATE Address: [address] [place] [address]
--- OUTSIDE RECORDS SUMMARY | 2023-11-15 15:27 | XMS_ITS | Continuity of Care Document ---
Author Organization [facility] Address [address] [place] [address]- Care Team Providers Care Medical Engineer Name Role Phone Dionicio ANTON, Lucy Yanez Primary Care Physician Encounter [facility] [place] Date(s): 10/28/22 - 11/27/22 [facility] Care [address] [place] [id number] Allergies, Adverse Reactions, Alerts Substance Reaction Severity [...] tablet, 0 Refills, Maintenance, 10/31/22 11:47:00 EDT, [facility] 75230, 161, cm, 10/28/22 13:31:00 EDT, Height, 86.9, [...] 0 Refills, Maintenance, 09/08/22 10:27:00 EST, [facility], 161, cm, 08/30/22 14:54:00 EST, Height, 88.9, kg, 08/30/22 14:54:00 EST, Dry Weight Start Date: 09/08/22 Status: Ordered glipiZIDE 10 mg oral tablet 1 tablet = 10 mg, By Mouth, 2 times a day, # 60 tablet, 3 Refills, Maintenance, 11/10/22 6:48:00 EDT, Tablet, [facility], Partial fill upon patient request if the prescription is for a schedule II opioid drug., 161, cm, 10/28/22... Start Date: 11/10/22 Stop Date: 03/10/23 Status: Ordered hydrochlorothiazide-triamterene 25 mg-37.5 mg oral capsule 1 capsule, By Mouth, Daily, # 90 capsule, 1 Refills, Maintenance, 09/08/22 10:28:00 EST, [facility], 0, 1 capsule By Mouth Daily, 161, cm, 08/30/22 14:54:00 EST, Height, 88.9, kg, 08/30/22 14:54:00 EST, Dry Weight Start Date: 09/08/22 Status: Ordered levothyroxine 0.05 mg oral tablet See Instructions, TAKE 1 TABLET DAILY, TAKE 2 TABLETS ON MONDAY, # 102 tablet, 0 Refills, 09/08/22 10:27:00 EST, [facility], 161, cm, 08/30/22 14:54:00 EST, Height, 88.9, kg, 08/30/22 14:54:00 EST, Dry Weight Start Date: 09/08/22 Status: Ordered loratadine 10 mg oral tablet 1, tablet, By Mouth, Daily, # 90 tablet, Refills 1, Route to Pharmacy Electronically, [facility] 17906, 161.5, cm, 08/16/21 14:16:00 EST, Height Start Date: 09/03/21 Status: Ordered losartan 50 mg oral tablet 1 tablet, By Mouth, Daily, # 90 tablet, 3 Refills, 09/08/22 10:28:00 EST, [facility], 161, cm, 08/30/22 14:54:00 EST, Height, 88.9, kg, 08/30/22 14:54:00 EST, Dry Weight Start Date: 09/08/22 Status: Ordered Magnesium Magnesium, 0 Refills, Maintenance, 02/02/22 13:23:00 EDT Start Date: 02/02/22 Status: Ordered Multivitamin Daily, 0 Refills, Maintenance, 02/21/20 10:55:00 EDT Start Date: 02/21/20 Status: Ordered [place]-3 oral capsule See Instructions, one daily, 0 [...] tablet, 1 Refills, Maintenance, 09/08/22 10:29:00 EST, [facility], 161, cm, 08/30/22 14:54:00 [...] Start Date: 02/02/22 Status: Ordered Vitamin D 31665 iu oral capsule 50,000 International_Units, By Mouth, [...] Personnel Name: Dionicio ANTON, Lucy Yanez Position: [facility] Associate Professional Member Role: PCP Address: Address: [address] [place] [id number]- Care Team Related Persons Name: ALBA TATE Address: [address] [place] [address]
--- OUTSIDE RECORDS SUMMARY | 2023-11-15 15:28 | XMS_ITS | Continuity of Care Document ---
Author Organization [facility] José Luis Lalit lt Address [address] [place] [address]- Care Team Providers Care Education Director Name Role Phone Dionicio ANTON, Lucy Yanez Primary Care Physician En[place] [facility] Date(s): 12/30/20 - 01/29/21 [facility] José Luis Adult [address] [place] [address]- Allergies, Adverse Reactions, Alerts Substance Reaction Severity Status cefuroxime Active Macrobid 1, 2 Active Latex rash Active ALVARO inhibitors muscle pain Active 1Reports Macrobid causes inflammation in her lungs that presents as atypical pneumonia. 2inflammation of the lung Immunizations Given and Recorded Vaccine Date Status Refusal Reason SARS-CoV-2 (COVID-19) mRNA BNT-162b2 vac 09/09/20 Given SARS-CoV-2 (COVID-19) mRNA BNT-162b2 vac 08/19/20 Recorded influenza virus vaccine, inactivated 04/22/20 Give n influenza virus vaccine, inactivated 04/09/19 Boyd rded influenza virus vaccine, inactivated 03/28/18 Boyd rded zoster vaccine, inactivated 04/06/19 Recorded Medications Accu-Chek [...] tablet = 50 mcg, By Mouth, Daily, take 2 tabs on monday, # 34 tablet, 1 Refills, Maintenance, 12/30/20 11:46:00 EDT, [facility], 161.5, cm, 12/30/20 11:09:00 EDT, Height Start Date: 12/30/20 Stop Date: 02/28/21 Status: Ordered LORazepam 0.5 mg oral tablet 1 tablet = 0.5 mg, By Mouth, Daily at bedtime, for 30 days, # 30 tablet, 1 Refills, Acute 03/05/21 7:26:00 EDT, 01/04/21 7:26:00 EDT, [facility], 161.5, cm, 12/30/20 11:09:00 EDT, Height Start Date: 01/04/21 Stop Date: 03/05/21 Status: Ordered losartan 50 mg oral tablet [...] tablet, 3 Refills, Maintenance, 12/30/20 11:45:00EDT, [facility], 161.5, cm, 12/30/20 11:09:00 EDT, Height Start Date: 12/30/20 Stop Date: 12/25/21 Status: Ordered Multivitamin Daily, 0 Refills, Maintenance, 02/21/20 10:55:00 EDT Start Date: 02/21/20 Status: Ordered Nexium Capsule See Instructions, 22 mg 1 every other day, Refills 0, Maintenance, 05/06/19 16:33:27 EDT, Instructions Replace Required Details Start Date: 05/06/19 Status: Ordered [place]-3 oral capsule See Instructions, one daily, 0 [...]
--- OUTSIDE RECORDS SUMMARY | 2023-11-15 15:28 | XMS_ITS | Continuity of Care Document ---
Author Organization [facility] Riccardo Ordonez Lalit lt Address [address] [place] [address]- Care Team Providers Care Conservation Planner Name Role Phone Dionicio ANTON, Lucy Yanez Primary Care Physician [place] [facility] [place] 08/21/20 - 09/20/20 [facility] José Luis Adult [address] [place] [address]- Allergies, Adverse Reactions, Alerts Substance Reaction Severity Status cefuroxime Active Macrobid 1, 2 Active Latex rash Active ALVARO inhibitors muscle pain Active 1Reports Macrobid causes inflammation in her lungs that presents as atypical pneumonia. 2inflammation of the lung Immunizations Given and Recorded Vaccine Date Status Refusal Reason SARS-CoV-2 (COVID-19) mRNA BNT-162b2 vac 09/09/20 Given influenza virus vaccine, inactivated 04/22/20 Give n [...] 1 Refills, Maintenance, 07/15/20 12:03:00 EST, [facility], 161.5, cm, 07/01/20 9:54:00 EST, [...] tablet, 3 Refills, Maintenance, 07/02/20 12:22:00 EST, [facility]/pharmacy #[id number], 161.5, cm, 07/01/20 9:54:00 EST, Height Start Date: 07/02/20 Status: Ordered Multivitamin Daily, 0 Refills, Maintenance, 02/21/20 10:55:00 EDT Start Date: 02/21/20 Status: Ordered Nexium Capsule See Instructions, 22 mg 1 every other day, Refills 0, Maintenance, 05/06/19 16:33:27 EDT, Instructions Replace Required Details Start Date: 05/06/19 Status: Ordered [place]-3 oral capsule See Instructions, one daily, 0 Refills, Maintenance, 05/07/19 16:47:12 EDT Start Date: 05/07/19 Status: Ordered omeprazole 20 mg oral enteric coated capsule 1 capsule = 20 mg, By Mouth, Daily, # 90 capsule, 3 Refills, Maintenance, 08/28/20 9:42:00 EST, [facility], Partial fill upon patient request if the prescription is for a schedule II opioid drug., 161.5, cm, 07/01/20 9:54:00 EST, He... Start Date: 08/28/20 Stop Date: 08/23/21 Status: Ordered OneTouch Verio Lancets See Instructions, [...]
--- OUTSIDE RECORDS SUMMARY | 2023-11-15 15:28 | XMS_ITS | Continuity of Care Document ---
Author Organization [facility] Address [address] [address]- Care Team Providers Care Caretaker Name Role Phone Dionicio ANTON, Lucy Yanez Primary Care Physician [phone] Encounter [facility] [place] Date(s): 12/07/22 - 01/06/23 [facility] [address] [address]- Attending Physician: Admlatasha, Damián Admitting Physician: Admtr, Damián Referring Physician: Admtr, [...] tablet, 0 Refills, Maintenance, 10/31/22 11:47:00 EDT, [facility] [address]12, 161, cm, 10/28/22 13:31:00 EDT, Height, 86.9, [...] capsule, 0 Refills, Maintenance, 12/01/22 16:17:00 EDT, [facility]3049, 161, cm, 10/28/22 13:31:00 EDT, Height, 86.9, kg, 10/28/22 13:31:00 EDT, Dry Weight Start Date: 12/01/22 Status: Ordered glipiZIDE 10 mg oral tablet, extended release 1 tablet = 10 mg, By Mouth, Daily, # 90 tablet, 1 Refills, Maintenance, 12/02/22 14:40:00 EDT, [facility], Partial fill upon patient request if the prescription is for a schedule II opioid drug., 161, cm, 10/28/22 13:31:00 EDT,... Start Date: 12/02/22 Status: Ordered hydrochlorothiazide-triamterene 25 mg-37.5 mg oral capsule 1 capsule, By Mouth, Daily, # 90 capsule, 1 Refills, Maintenance, 09/08/22 10:28:00 EST, [facility], 0, 1 capsule By Mouth Daily, 161, cm, 08/30/22 14:54:00 EST, Height, 88.9, kg, 08/30/22 14:54:00 EST, Dry Weight Start Date: 09/08/22 Status: Ordered levothyroxine 0.05 mg oral tablet See Instructions, TAKE 1 TABLET DAILY, TAKE 2 TABLETS ON MONDAY, # 102 tablet, 0 Refills, Maintenance, 12/01/22 16:17:00 EDT, [facility] [address]72, 161, cm, 10/28/22 13:31:00 EDT, Height, 86.9, kg, 10/28/22 13:31:00 EDT, Dry Weight Start Date: 12/01/22 Status: Ordered loratadine 10 mg oral tablet 1, tablet, By Mouth, Daily, # 90 tablet, Refills 1, Route to Pharmacy Electronically, [facility] 62846, 161.5, cm, 08/16/21 14:16:00 EST, Height Start Date: 09/03/21 Status: Ordered losartan 50 mg oral tablet 1 tablet, By Mouth, Daily, # 90 tablet, 3 Refills, 09/08/22 10:28:00 EST, [facility], 161, cm, 08/30/22 14:54:00 EST, Height, 88.9, kg, 08/30/22 14:54:00 EST, Dry Weight Start Date: 09/08/22 Status: Ordered Magnesium Magnesium, 0 Refills, Maintenance, 02/02/22 13:23:00 EDT Start Date: 02/02/22 Status: Ordered Multivitamin Daily, 0 Refills, Maintenance, 02/21/20 10:55:00 EDT Start Date: 02/21/20 Status: Ordered [place]-3 oral capsule See Instructions, one daily, 0 [...] Start Date: 02/02/22 Status: Ordered Vitamin D 99381 iu oral capsule 50,000 International_Units, By Mouth, [...] Associate Professional Member Role: PCP Address: Address: [address] [place] [address]- Care Team Related Persons Name: ALBA TATE Address: home [address] [place] [address]
--- OUTSIDE RECORDS SUMMARY | 2023-11-15 15:28 | XMS_ITS | Continuity of Care Document ---
Author Organization [facility] José Luis Lalit lt Address [address] [place] [address]- Care Team Providers Care Intelligence Senior Sergeant Name Role Phone Dionicio ANTON, Lucy Yanez Primary Care Physician [place] [facility] [place] 07/08/20 [facility] Adult [address] [place] [address]- Encounter Diagnosis Type II diabetes mellitus(Discharge Diagnosis) - 07/01/20 Hypothyroidism(Discharge Diagnosis) - 07/01/20 Hypercholesterolemia(Discharge Diagnosis) - 07/01/20 Benign essential hypertension(Discharge Diagnosis) - 07/01/20 Anxiety(Discharge Diagnosis) - 07/01/20 Attending Physician: Lucy Greenberg NP Referring Physician: Jony GATES, Wade Irwin Allergies, Adverse Reactions, Alerts Substance Reaction Severity Status cefuroxime Active Macrobid 1, 2 Active ALVARO inhibitors muscle pain Active Latex rash Active 1Reports Macrobid causes [...] tablet, 3 Refills, Maintenance, 07/02/20 12:22:00 EST, [facility]/pharmacy #[id number], 161.5, cm, 07/01/20 9:54:00 EST, Height Start Date: 07/02/20 Status: Ordered Multivitamin Daily, 0 Refills, Maintenance, 02/21/20 10:55:00 EDT Start Date: 02/21/20 Status: Ordered Nexium Capsule See Instructions, 22 mg 1 every other day, Refills 0, Maintenance, 05/06/19 16:33:27 EDT, Instructions Replace Required Details Start Date: 05/06/19 Status: Ordered [place]-3 oral capsule See Instructions, one daily, 0 [...] Hypothyroidism(Confirmed) Active Type II diabetes mellitus(Confirmed) Active Diagnosis Diagnosis Type Effective Dates Health Status Clinical Service Informant Type II diabetes mellitus Discharge Diagnosis 07/01/20 Hypothyroidism Discharge Diagnosis 07/01/20 Hypercholesterolemia Discharge Diagnosis 07/01/20 Benign essential hypertension Discharge Diagnosis 07/01/20 Anxiety Discharge Diagnosis 07/01/20 Vital Signs Most recent to oldest [Reference Range]: 1 Height 161.5 cm (07/01/20 9:54 AM) Social History Social History Type Response Smoking Status Former smoker, quit more than 30 days ago entered on: 05/16/19 Sex
--- OUTSIDE RECORDS SUMMARY | 2023-11-15 15:28 | XMS_ITS | Continuity of Care Document ---
Author Organization [facility] Address [address] [place] [address]- Care Team Providers Care Powder Core Tester Name Role Phone Dionicio ANTON, Lucy Yanez Primary Care Physician Encounter 05/31/22 - 06/07/22 [facility] [address], [address] [place] [address]- Attending Physician: Lucy Greenberg NP Admitting Physician: Dionicio ANTON, Lucy Yanez Referring Physician: Dionicio ANTON, Lucy Yanez Allergies, Adverse [...] tablet, Refills 1, Route to Pharmacy Electronically, [facility] 14212, 161.5, cm, 08/16/21 14:16:00 EST, Height Start [...] 10:55:00 EDT Start Date: 02/21/20 Status: Ordered [place]-3 oral capsule See Instructions, one daily, 0 [...] Start Date: 02/02/22 Status: Ordered Vitamin D 25948 iu oral capsule 50,000 International_Units, By Mouth, [...] Exam Date Time Procedure Performing Provider Status 05/31/22 3:59 PM MM Digital Mammo Screening Alysia Gr; Auth (Verified) Notes: (MM Digital Mammo Screening) Reason For Exam: Screening RESULT: MM Digital Mammo Screening PROCEDURE: MM Digital Mammo Screening INDICATION: Screening for breast cancer. No known palpable abnormalities. COMPARISON: Multiple priors dating back to 03/23/2017 TECHNIQUE: Full-field digital CC and MLO 3D tomosynthesis images of both breasts were acquired. Computer-aided detection (CAD) was utilized in the interpretation of this study. DENSITY: The breast tissue contains scattered areas of fibroglandular density. FINDINGS: There is a possible small spiculated hyperdense asymmetry seen superiorly on the LEFT MLOview at middle third depth approximately 9 cm from the nipple. Further evaluation with spot compression MLO and full-field 90 degrees mediolateral tomosynthesis is recommended. Ultrasound may be necessary. No suspicious findings are seen in the right breast. IMPRESSION: Additional imaging recommended. We will recall the patient. RECOMMENDATION: Diagnostic 3D tomosynthesis of the left breast with scheduled ultrasound BI-RADS: 0 Incomplete - Need Additional Imaging Evaluation. Lay letter mailed to patient WSN: [id number] Ordering Physician: Lucy Greenberg Dictated By: Alexandra Dexter MD Dictated Date/Time: 06/01/22 3:37 pm Reviewed By: Alexandra Dexter MD Signed By: Alexandra Dexter MD Signed Date/Time: 06/01/22 3:37 pm Transcribed By: RADHA Manager Dialysis Date/Time: 06/01/22 3:31 pm Birads: Social History Social History Type Response Smoking Status Former smoker, quit more than 30 days ago entered on: 05/16/19 Sex MG Breast Screening * [facility] , CIS S: TRANSCRIBE Alexandra Dexter MD: VERIFY Event Display: Result: Authored Date: [id number] PROCEDURE: MM Digital Mammo Screening INDICATION: Screening for breast cancer. No known palpable abnormalities. COMPARISON: Multiple priors dating back to 03/23/2017 TECHNIQUE: Full-field digital CC and MLO 3D tomosynthesis images of both breasts were acquired. Computer-aided detection (CAD) was utilized in the interpretation of this study. DENSITY: The breast tissue contains scattered areas of fibroglandular density. FINDINGS: There is a possible small spiculated hyperdense asymmetry seen superiorly on the LEFT MLOview at middle third depth approximately 9 cm from the nipple. Further evaluation with spot compression MLO and full-field 90 degrees mediolateral tomosynthesis is recommended. Ultrasound may be necessary. No suspicious findings are seen in the right breast. IMPRESSION: Additional imaging recommended. We will recall the patient. RECOMMENDATION: Diagnostic 3D tomosynthesis of the left breast with scheduled ultrasound BI-RADS: 0 Incomplete - Need Additional Imaging Evaluation. Lay letter mailed to patient WSN: [id number] Ordering Physician: Lucy Greenberg Dictated By: Alexandra Dexter MD Dictated Date/Time: 06/01/22 3:37 pm Reviewed By: Alexandra Dexter MD Signed By: Alexandra Dexter MD Signed Date/Time: 06/01/22 3:37 pm Transcribed By: RADHA Manager Dialysis Date/Time: 06/01/22 3:31 pm Birads: Patient Care team information Care Team Personnel Name: Lucy Greenberg NP Position: [facility] Associate Professional Member Role: PCP Address: Address: [address] [place] [address]- Care Team Related Persons Name: ALBA TATE
--- OUTSIDE RECORDS SUMMARY | 2023-11-15 15:28 | XMS_ITS | Continuity of Care Document ---
Author Organization [facility] José Luis Lalit lt Address [address] [place] [address]- Care Team Providers Care Edge Beader Name Role Phone Dionicio ANTON, Lucy Yanez Primary Care Physician [phone] [place] [facility] [place](s): 02/01/23 - 03/03/23 [facility] Adult [address] [place] [address]- Allergies, Adverse Reactions, Alerts Substance Reaction Severity [...] tablet, 0 Refills, Maintenance, 10/31/22 11:47:00 EDT, [facility] STORE [address]30, 161, cm, 10/28/22 13:31:00 EDT, Height, 86.9, [...] capsule, 3 Refills, Maintenance, 01/27/23 9:13:00 EDT, [facility], 161, cm, 10/28/22 13:31:00 EDT, Height, 86.9, kg, 10/28/22 13:31:00 EDT, DryWeight Start Date: 01/27/23 Status: Ordered GlipiZIDE XL 10 mg oral tablet, extended release 2 tablet = 20 mg, By Mouth, Daily, # 180 tablet, 1 Refills, Maintenance, 02/16/23 6:50:00 EDT, [facility], Partial fill upon patient request if the prescription is for a schedule II opioid drug., 161, cm, 02/07/23 11:15:00 EDT,... Start Date: 02/16/23 Status: Ordered hydrochlorothiazide-triamterene 25 mg-37.5 mg oral capsule 1 capsule, By Mouth, Daily, # 90 capsule, 1 Refills, Maintenance, 09/08/22 10:28:00 EST, [facility], 0, 1 capsule By Mouth Daily, 161, cm, 08/30/22 14:54:00 EST, Height, 88.9, kg, 08/30/22 14:54:00 EST, Dry Weight Start Date: 09/08/22 Status: Ordered loratadine 10 mg oral tablet 1, tablet, By Mouth, Daily, # 90 tablet, Refills 1, Route to Pharmacy Electronically, [facility] STORE [address]92, 161.5, cm, 08/16/21 14:16:00 EST, Height Start Date: 09/03/21 Status: Ordered losartan 50 mg oral tablet 1 tablet, By Mouth, Daily, for 7 days, # 7 tablet, 0 Refills, Physician Stop 03/06/23 11:33:00 EDT,02/27/23 11:33:00 EDT, [facility]/pharmacy #[id number], 161, cm, 02/22/23 11:03:00 EDT, Height, 86.9, kg, 10/28/22 13:31:00 EDT, Dry Weight Start Date: 02/27/23 Stop Date: 03/06/23 Status: Ordered losartan 50 mg oral tablet 1 tablet, By Mouth, Daily, for 90 days, # 90 tablet, 1 Refills, Physician Stop 09/02/23 11:33:00 EST, 03/06/23 11:33:00 EDT, [facility]/pharmacy #[id number], 161, cm, 02/22/23 11:03:00 EDT, [...] 10:55:00 EDT Start Date: 02/21/20 Status: Ordered [place]-3 oral capsule See Instructions, one daily, 0 [...] tablet, 1 Refills, Maintenance, 09/08/22 10:29:00 EST, [facility], 161, cm, 08/30/22 14:54:00 EST, Height, 88.9, kg, 08/30/22 14:54:00 EST, Dry Weight Start Date: 09/08/22 Status: Ordered Synthroid 0.05 mg oral tablet 1 tablet, By Mouth, Daily, TAKE 2TABLETS ON MONDAY, # 102 tablet, 1 Refills, Maintenance, 01/27/23 4:55:00 EDT, [facility], 161, cm, 10/28/22 13:31:00 [...] Start Date: 02/02/22 Status: Ordered Vitamin D 80171 iu oral capsule 50,000 International_Units, By Mouth, [...] Associate Professional Member Role: PCP Address: Address: [address] [place] [address]- Care Team Related Persons Name: ALBA TATE Address: home [address] [place] [address]
--- OUTSIDE RECORDS SUMMARY | 2023-11-15 15:28 | XMS_ITS | Continuity of Care Document ---
Author Organization [facility] José Luis Lalit lt Address [address] [place] [address]- Care Team Providers Care Washing And Screening Plant Supervisor Name Role Phone Dionicio ANTON, Lucy Yanez Primary Care Physician [phone] Encounter [facility] Date(s): 05/29/23 - 06/28/23 [facility] José Luis Adult [address] [place] [address]- Allergies, Adverse Reactions, Alerts Substance Reaction Severity [...] (oldterm) 1 04/19/23 Recor ded SARS-CoV-2 mRNA (olstbgi-epbv-bnngs) vax 2 04/19/23 Recorded influenza virus vaccine, inactivated 04/05/22 Boyd rded influenza virus vaccine, inactivated 04/28/21 Give n influenza virus vaccine, inactivated 04/22/20 Give n influenza virus vaccine, inactivated 04/09/19 Boyd rded influenza virus vaccine, inactivated 03/28/18 Boyd rded [id number] bivalent booster vax 04/02/22 Recorded SARS-CoV-2 (COVID-19) mRNA-1273 vaccine 11/25/21 R ecorded SARS-CoV-2 (COVID-19) mRNA BNT-162b2 vac 04/22/21 Recorded SARS-CoV-2 (COVID-19) mRNA BNT-162b2 vac 09/09/20 Given SARS-CoV-2 (COVID-19) mRNA BNT-162b2 vac 08/19/20 Recorded zoster vaccine, inactivated 04/06/19 Recorded 1Result Comment: [facility] in [place] 2Result Comment: [facility] in [place] Medications Accu-Chek Paradise Glucose Meter See Instructions, [...] tablet, 1 Refills, Maintenance, 04/09/23 17:21:00 EDT, [facility], 161, cm, 02/22/23 11:03:00 EDT, Height, 86.9, kg, 10/28/22 13:31:00 EDT, Dry Weight Start Date: 04/09/23 Status: Ordered esomeprazole 20 mg oral enteric coated capsule 1 capsule, By Mouth, Daily, # 90 capsule, 3 Refills, Maintenance, 01/27/23 9:13:00 EDT, [facility], 161, cm, 10/28/22 13:31:00 EDT, Height, 86.9, kg, 10/28/22 13:31:00 EDT, DryWeight Start Date: 01/27/23 Status: Ordered GlipiZIDE XL 10 mg oral tablet, extended release 2 tablet = 20 mg, By Mouth, Daily, # 180 tablet, 3 Refills, Maintenance, 06/22/23 6:47:00 EST, [facility], Partial fill upon patient request if the prescription is for a schedule II opioid drug., 161, cm, 05/16/23 10:58:00 EDT,... Start Date: 06/22/23 Status: Ordered hydrochlorothiazide-triamterene 25 mg-37.5 mg oral capsule 1 capsule, By Mouth, Daily, # 90 capsule, 1 Refills, Maintenance, 04/06/23 8:40:00 EDT, [facility], 90, TAKE 1 CAPSULE [...] EST, 04/21/23 6:50:00 EDT, [facility], 161, cm, 02/22/23 11:03:00 EDT, Height, 86.9, kg, 10/28/22 13:31:00 EDT, Dry Weight Start Date: 04/21/23 Stop Date: 07/20/23 Status: Ordered losartan 50 mg oral tablet 1 tablet, By Mouth, Daily, for 90 days, # 90 tablet, 1 Refills, Physician Stop 02/29/24 11:33:00 EDT, 09/02/23 11:33:00 EST, [facility], 161, cm, 02/22/23 11:03:00 EDT, Height,86.9, [...] Start Date: 12/27/19 Status: Ordered Vitamin D 15877 iu oral capsule 50,000 International_Units, By Mouth, [...] Personnel Name: Dionicio ANTON, Lucy Yanez Position: [facility] PCO Associate Professional Member Role: PCP Address: Address: [address] [place] [address]- Care Team Related Persons Name: ALBA TATE Address: [address] [place] [address]
--- OUTSIDE RECORDS SUMMARY | 2023-11-15 15:28 | XMS_ITS | Continuity of Care Document ---
Author Organization [facility] Address [address] [place] [address]- Care Team Providers Care Bag Valver Name Role Phone Dionicio ANTON, Lucy Yanez Primary Care Physician Encounter 06/01/23 - 06/08/23 [facility] [address], [address] [place] [address]- Attending Physician: Kris Noe DO Admitting Physician: Kris Noe DO Referring Physician: Kris Noe DO Allergies, Adverse Reactions, Alerts Substance Reaction Severity Status cefuroxime Active beta blockers Active Bactrim Active Latex rash Active metFORMIN Diarrhea Active ALVARO inhibitors muscle pain Active Macrobid 1, 2 Active 1Reports Macrobid causes inflammation in her lungs that presents as atypical pneumonia. 2inflammation of the lung Immunizations Given and Recorded Vaccine Date Status Refusal Reason RSV vaccine preF3, recombinant 05/28/23 Recorded Influenza Virus Vaccine (oldterm) 1 04/19/23 Recor ded SARS-CoV-2 mRNA (csrlvjo-ohiw-umgmh) vax 2 04/19/23 Recorded influenza virus vaccine, inactivated 04/05/22 Boyd rded influenza virus vaccine, inactivated 04/28/21 Give n influenza virus vaccine, inactivated 04/22/20 Give n influenza virus vaccine, inactivated 04/09/19 Boyd rded influenza virus vaccine, inactivated 03/28/18 Boyd rded [id number] bivalent booster vax 04/02/22 Recorded SARS-CoV-2 (COVID-19) mRNA-1273 vaccine 11/25/21 R ecorded SARS-CoV-2 (COVID-19) mRNA BNT-162b2 vac 04/22/21 Recorded SARS-CoV-2 (COVID-19) mRNA BNT-162b2 vac 09/09/20 Given SARS-CoV-2 (COVID-19) mRNA BNT-162b2 vac 08/19/20 Recorded zoster vaccine, inactivated 04/06/19 Recorded 1Result Comment: [facility] in [place] 2Result Comment: [facility] in [place] Medications Accu-Chek Paradise Glucose Meter See Instructions, [...] tablet, 1 Refills, Maintenance, 04/09/23 17:21:00 EDT, [facility], 161, cm, 02/22/23 11:03:00 EDT, Height, 86.9, kg, 10/28/22 13:31:00 EDT, Dry Weight Start Date: 04/09/23 Status: Ordered esomeprazole 20 mg oral enteric coated capsule 1 capsule, By Mouth, Daily, # 90 capsule, 3 Refills, Maintenance, 01/27/23 9:13:00 EDT, [facility], 161, cm, 10/28/22 13:31:00 EDT, Height, 86.9, kg, 10/28/22 13:31:00 EDT, DryWeight Start Date: 01/27/23 Status: Ordered GlipiZIDE XL 10 mg oral tablet, extended release 2 tablet = 20 mg, By Mouth, Daily, # 180 tablet, 1 Refills, Maintenance, 02/16/23 6:50:00 EDT, [facility], Partial fill upon patient request if the prescription is for a schedule II opioid drug., 161, cm, 02/07/23 11:15:00 EDT,... Start Date: 02/16/23 Status: Ordered hydrochlorothiazide-triamterene 25 mg-37.5 mg oral capsule 1 capsule, By Mouth, Daily, # 90 capsule, 1 Refills, Maintenance, 04/06/23 8:40:00 EDT, [facility], 90, TAKE 1 CAPSULE [...] Acute 07/20/23 6:50:00 EST, 04/21/23 6:50:00 EDT, [facility], 161, cm, 02/22/23 11:03:00 EDT, Height, 86.9, kg, 10/28/22 13:31:00 EDT, Dry Weight Start Date: 04/21/23 Stop Date: 07/20/23 Status: Ordered losartan 50 mg oral tablet 1 tablet, By Mouth, Daily, for 90 days, # 90 tablet, 1 Refills, Physician Stop 02/29/24 11:33:00 EDT, 09/02/23 11:33:00 EST, [facility], 161, cm, 02/22/23 11:03:00 [...] Start Date: 12/27/19 Status: Ordered Vitamin D 04799 iu oral capsule 50,000 International_Units, By Mouth, [...] Exam Date Time Procedure Performing Provider Status 06/01/23 11:57 AM MM Digital Screen Ma mmo Unilat Right Joselyn Cardoza; Auth (Verified) Notes: (MM Digital Screen Mammo Unilat Right) Reason For Exam: routine screening;Screening RESULT: MM Digital Screen Mammo Unilat Right PROCEDURE: MM Digital Screen Mammo Unilat Right INDICATION: Screening for breast cancer. No known palpable abnormalities. History of left-sided breast cancer status post lumpectomy 08/10/2022. COMPARISON: Back to 04/02/2018. TECHNIQUE:Full-field digital CC and MLO 3D tomosynthesis images of the right breast were acquired. Computer-aided detection (CAD) was utilized in the interpretation of this study. DENSITY: Contains scattered areas of fibroglandular density. FINDINGS: No suspicious masses, microcalcifications, areas of architectural distortion, or skin thickening to suggest malignancy. IMPRESSION: No mammographic evidence of malignancy. RECOMMENDATION: Annual mammographic screening. BI-RADS: 1 (Negative) Lay letter mailed to patient WSN: [id number] Ordering Physician: Kris Noe Dictated By: Loy Vick MD Dictated Date/Time: 06/01/23 4:51 pm Reviewed By: Loy Vick MD Signed By: Loy Vick MD Signed Date/Time: 06/01/23 4:51 pm Transcribed By: RADHA Carton Wrapper Date/Time: 06/01/23 4:46 pm Birads: Social History Social History Type Response Smoking Status Former smoker, quit more than 30 days ago entered on: 05/16/19 Sex Patient Care team information Care Team Personnel Name: Dionicio ANTON, Lucy Yanez Position: [facility] PCO Associate Professional Member Role: PCP Address: Address: [address] [place] [address]- Care Team Related Persons Name: ALBA TATE Address: [address] [place] [address]
--- OUTSIDE RECORDS SUMMARY | 2023-11-15 15:28 | XMS_ITS | Continuity of Care Document ---
Author Organization [facility] José Luis Lalit lt Address [address] [place] [address]- Care Team Providers Care Mail Courier Name Role Phone Dionicio ANTON, Lucy Yanez Primary Care Physician Encounter [facility] Date(s): 11/18/21 - 12/18/21 [facility] Riccardo Ordonez Adult [address] [place] [address]- Allergies, Adverse Reactions, Alerts Substance Reaction Severity [...] tablet, Refills 1, Route to Pharmacy Electronically, [id number], 161.5, cm, 08/16/21 14:16:00 EST, Height Start Date: 09/03/21 Status: Ordered losartan 50 mg oral tablet 50 mg, 1, tablet, By Mouth, Daily, # 90 tablet, Refills 3, Tot. Refills 3, Maintenance, 12/30/20 11:48:00 EDT, Route to Pharmacy Electronically, [facility], 161.5, cm, 12/30/20 11:09:00 EDT, Height Start Date: 12/30/20 Status: Ordered Multivitamin Daily, 0 Refills, Maintenance, 02/21/20 10:55:00 EDT Start Date: 02/21/20 Status: Ordered Nexium 20 mg oral enteric coated capsule 1 capsule = 20 mg, By Mouth, Daily, # 90 capsule, 1 Refills, Maintenance, 09/13/21 9:37:00 EST, EC Capsule, [facility], Partial fill upon patient request if the prescription is fora schedule II opioid drug., 161.5, cm, 09/13/21 8:5... Start Date: 09/13/21 Status: Ordered Nexium Capsule See Instructions, 22 mg 1 every other day, Refills 0, Maintenance, 05/06/19 16:33:27 EDT, Instructions Replace Required Details Start Date: 05/06/19 Status: Ordered [place]-3 oral capsule See Instructions, one daily, 0 [...]
--- OUTSIDE RECORDS SUMMARY | 2023-11-15 15:28 | XMS_ITS | Continuity of Care Document ---
Author Organization [facility] José Luis Lalit lt Address [address] [place] [address]- Care Team Providers Care Warp Knitting Machine Operator Name Role Phone Dionicio ANTON, Lucy Yanez Primary Care Physician [phone] Encounter [facility] Date(s): 12/27/19 - 01/03/20 [facility] Adult [address] [place] [address]- [facility] Encounter Diagnosis Anxiety(Discharge Diagnosis) - 12/27/19 Annual physical exam(Discharge Diagnosis) - 12/27/19 Benign essential hypertension(Discharge Diagnosis) - 12/27/19 Hypercholesterolemia(Discharge Diagnosis) - 12/27/19 Hypothyroidism(Discharge Diagnosis) - 12/27/19 Type II diabetes mellitus(Discharge Diagnosis) - 12/27/19 Urinary tract infection(Discharge Diagnosis) - 12/27/19 Attending Physician: Dionicio ANTON, Lucy Yanez Allergies, Adverse Reactions, Alerts Substance Reaction Severity Status Latex rash Active ALVARO inhibitors muscle pain Active Medications Ativan 0.5 mg oral tablet See Instructions, PRN for anxiety, 1 tablet By Mouth prn anxiety, 0 Refills, Maintenance, 05/07/19 16:46:23 EDT, Tablet Start Date: 05/07/19 Status: Ordered Claritin 10 mg oral tablet 10 mg, 1, tablet, By Mouth, Daily, # 30 tablet, Refills 0, Maintenance, 12/27/19 10:35:00 EDT Start Date: 12/27/19 Status: Ordered Crestor 10 mg oral tablet [...] EDT Start Date: 05/06/19 Status: Ordered losartan 50 mg oral tablet 50 mg, 1, tablet, By Mouth, Daily, # 30 tablet, Refills 0, Tot. Refills 0, Maintenance, 12/27/19 10:57:00 EDT, Do Not Route Start Date: 12/27/19 Status: Ordered metFORMIN 500 mg oral tablet, extended release 2 tablet = 1,000 mg, By Mouth, 2 times a day, replace short acting, # 120 tablet, 0 Refills, Maintenance, 12/27/19 10:41:00 EDT, [facility]/pharmacy #[id number], 161.5, cm, 12/27/19 10:14:00 EDT, Height Start Date: 12/27/19 Status: Ordered Nexium Capsule See Instructions, 22 mg 1 every other day, Refills 0, Maintenance, 05/06/19 16:33:27 EDT, Instructions Replace Required Details Start Date: 05/06/19 Status: Ordered [place]-3 oral capsule See Instructions, one daily, 0 [...] Effective Dates Health Status Clinical Service Informant Anxiety Discharge Diagnosis 12/27/19 Annual physical exam Discharge Diagnosis 12/27/19 Benign essential hypertension Discharge Diagnosis 12/27/19 Hypercholesterolemia Discharge Diagnosis 12/27/19 Hypothyroidism Discharge Diagnosis 12/27/19 Type II diabetes mellitus Discharge Diagnosis 12/27/19 Urinary tract infection Discharge Diagnosis 12/27/19 Social History Social History Type Response Smoking Status Former smoker, quit more than 30 days ago entered on: 05/16/19 Sex
--- OUTSIDE RECORDS SUMMARY | 2023-11-15 15:28 | XMS_ITS | Continuity of Care Document ---
Author Organization [facility] Address [address] [facility], [address] [place] [address]- Care Team Providers Care Vp Emerging Media Name Role Phone Dionicio ANTON, Lucy Yanez Primary Care Physician Encounter [facility] Date(s): 02/04/22 - 03/06/22 [facility] Leisa Mcghees [facility] [address], [address] [place] [address]- Allergies, Adverse Reactions, Alerts Substance Reaction Severity [...] tablet, Refills 1, Route to Pharmacy Electronically, [facility], 161.5, cm, 08/16/21 14:16:00 EST, Height Start [...] 10:55:00 EDT Start Date: 02/21/20 Status: Ordered [place]-3 oral capsule See Instructions, one daily, 0 [...] Start Date: 02/02/22 Status: Ordered Vitamin D 85567 iu oral capsule 50,000 International_Units, By Mouth, [...]
--- OUTSIDE RECORDS SUMMARY | 2023-11-15 15:28 | XMS_ITS | Continuity of Care Document ---
Author Organization [facility] José Luis Lalit lt Address [address] [place] [address]- Care Team Providers Care Casino Operations Supervisor Name Role Phone Dionicio ANTON, Lucy Yanez Primary Care Physician [phone] Encounter [facility] Date(s): 11/11/21 - 11/18/21 [facility] [place] Adult [address] [place] [address]- Encounter Diagnosis Type II diabetes mellitus(Discharge Diagnosis) - 11/11/21 Benign essential hypertension(Discharge Diagnosis) - 11/11/21 Hypothyroidism(Discharge Diagnosis) - 11/11/21 Attending Physician: Not on Staff, Attending MD Allergies, Adverse Reactions, Alerts Substance Reaction Severity Status cefuroxime Active Macrobid 1, 2 Active metFORMIN Diarrhea Active Latex rash Active ALVARO inhibitors muscle [...] opioid drug. Start Date: 08/09/21 Status: Ordered Cipro 250 mg oral tablet 1 tablet = 250 mg, By Mouth, Every 12 hours, for 7 days, # 14 tablet, 0 Refills, Acute 11/25/21 15:22:00 EDT, 11/18/21 15:22:00 EDT, [facility]/pharmacy #[id number], Partial fill upon patient request if the prescription is for a schedule II opioid drug., 161.5, cm... Start Date: 11/18/21 Stop Date: 11/25/21 Status: Ordered Crestor 10 mg oral tablet [...] tablet, Refills 1, Route to Pharmacy Electronically, [facility], 161.5, cm, 08/16/21 14:16:00 EST, Height Start [...] Required Details Start Date: 05/06/19 Status: Ordered [place]-3 oral capsule See Instructions, one daily, 0 [...] Informant Type II diabetes mellitus Discharge Diagnosis 11/11/21 Benign essential hypertension Discharge Diagnosis 11/11/21 Hypothyroidism Discharge Diagnosis 11/11/21 Vital Signs Most recent to oldest [Reference Range]: 1 Height 161.5 cm (11/11/21 12:28 PM) Weight 87.8 kg (11/11/21 12:28 PM) Oxygen Saturation [94-100 %] 100 % (11/11/21 12:28 PM) Pulse Rate [55-90 bpm] 83 bpm (11/11/21 12:28 PM) Body Mass Index [18.5-24.99] 33.66 *>HHI* (11/11/21 12:28 PM) Blood Pressure [90-138/55-84 mm Hg] 132/ 81mm Hg (11/11/21 12:28 PM) Temperature [96.8-100.4 DegF] 98.2 DegF (11/11/21 12:28 PM) Blood pressure sites Arm, left (11/11/21 12:28 PM) Temperature Route Temporal (11/11/21 12:28 PM) Weight Obtained Via Standing scale (11/11/21 12:28 PM) Social History Social History Type Response Smoking Status Former smoker, quit more than 30 days ago entered on: 05/16/19 Sex
--- OUTSIDE RECORDS SUMMARY | 2023-11-15 15:29 | XMS_ITS | Continuity of Care Document ---
Author Organization [facility] José Luis Lalit lt Address [address] [place] [address]- Care Team Providers Care Tobacco Farmworker Name Role Phone Dionicio ANTON, Lucy Yanez Primary Care Physician Encounter [facility] Date(s): 04/14/23 - 05/14/23 [facility] Adult [address] [place] [address]- Allergies, Adverse Reactions, Alerts Substance Reaction Severity [...] (oldterm) 1 04/19/23 Recor ded SARS-CoV-2 mRNA (jntdzxq-bxma-mewrh) vax 2 04/19/23 Recorded influenza virus vaccine, inactivated 04/05/22 Boyd rded influenza virus vaccine, inactivated 04/28/21 Give n influenza virus vaccine, inactivated 04/22/20 Give n influenza virus vaccine, inactivated 04/09/19 Boyd rded influenza virus vaccine, inactivated 03/28/18 Boyd rded [id number] bivalent booster vax 04/02/22 Recorded SARS-CoV-2 (COVID-19) mRNA-1273 vaccine 11/25/21 R ecorded SARS-CoV-2 (COVID-19) mRNA BNT-162b2 vac 04/22/21 Recorded SARS-CoV-2 (COVID-19) mRNA BNT-162b2 vac 09/09/20 Given SARS-CoV-2 (COVID-19) mRNA BNT-162b2 vac 08/19/20 Recorded zoster vaccine, inactivated 04/06/19 Recorded 1Result Comment: [facility] [place] 2Result Comment: [facility] [place] Medications Accu-Chek [place] Glucose Meter See Instructions, [...] tablet, 1 Refills, Maintenance, 04/09/23 17:21:00 EDT, [facility], 161, cm, 02/22/23 11:03:00 EDT, Height, [...] 3 Refills, Maintenance, 01/27/23 9:13:00 EDT, [facility], 161, cm, 10/28/22 13:31:00 EDT, Height, 86.9, kg, 10/28/22 13:31:00 EDT, DryWeight Start Date: 01/27/23 Status: Ordered GlipiZIDE XL 10 mg oral tablet, extended release 2 tablet = 20 mg, By Mouth, Daily, # 180 tablet, 1 Refills, Maintenance, 02/16/23 6:50:00 EDT, [facility], Partial fill upon patient request if the prescription is for a schedule II opioid drug., 161, cm, 02/07/23 11:15:00 EDT,... Start Date: 02/16/23 Status: Ordered hydrochlorothiazide-triamterene 25 mg-37.5 mg oral capsule 1 capsule, By Mouth, Daily, # 90 capsule, 1 Refills, Maintenance, 04/06/23 8:40:00 EDT, [facility], 90, TAKE 1 [...] opioid drug. Start Date: 05/04/23 Status: Ordered loratadine 10 mg oral tablet 1, tablet, By Mouth, Daily, # 90 tablet, Refills 1, Route to Pharmacy Electronically, [facility], 161.5, cm, 08/16/21 14:16:00 EST, Height Start Date: 09/03/21 Status: Ordered LORazepam 0.5 mg oral tablet 1 tablet = 0.5 mg, By Mouth, Daily at bedtime, for 30 days, # 12 tablet, 2 Refills, Acute 07/20/23 6:50:00 EST, 04/21/23 6:50:00 EDT, [facility], 161, cm, 02/22/23 11:03:00 EDT, Height, 86.9, kg, 10/28/22 13:31:00 EDT, Dry Weight Start Date: 04/21/23 Stop Date: 07/20/23 Status: Ordered losartan 50 mg oral tablet 1 tablet, By Mouth, Daily, for 90 days, # 90 tablet, 1 Refills, Physician Stop 02/29/24 11:33:00 EDT, 09/02/23 11:33:00 EST, [facility], 161, cm, 02/22/23 11:03:00 EDT, Height,86.9, kg, 10/28/22 13:31:00 EDT, Dry Weight Start Date: 09/02/23 Stop Date: 02/29/24 Status: Ordered losartan 50 mg oral tablet 1 tablet, By Mouth, Daily, for 90 days, # 90 tablet, 1 Refills, Physician Stop 09/02/23 11:33:00 EST, 03/06/23 11:33:00 EDT, [facility]/pharmacy #[id number], 161, cm, 02/22/23 11:03:00 EDT, Height, [...] 10:55:00 EDT Start Date: 02/21/20 Status: Ordered [place]-3 oral capsule See Instructions, one daily, 0 [...] Start Date: 02/02/22 Status: Ordered Vitamin D 10748 iu oral capsule 50,000 International_Units, By Mouth, [...] Associate Professional Member Role: PCP Address: Address: [address] [place] [address]- Care Team Related Persons Name: ALBA TATE Address: home [address] [place] [address]
--- OUTSIDE RECORDS SUMMARY | 2023-11-15 15:29 | XMS_ITS | Continuity of Care Document ---
Author Organization [facility] Riccardo Ordonez Lalit lt Address [address] [place] [address]- Care Team Providers Care Apartment Property Manager Name Role Phone Dionicio ANTON, Lucy Yanez Primary Care Physician [phone] [facility] Date(s): 07/21/22 - 08/20/22 [facility] Riccardo Ordonez Adult [address] [place] [address]- Allergies, Adverse Reactions, Alerts Substance Reaction Severity [...] 0 Refills, Maintenance, 07/17/22 15:34:00 EST, [facility], 161.3, cm, 07/15/22 9:49:00 EST, Height, 88, kg, 02/02/22 13:19:00 EDT, Dry Weight Start Date: 07/17/22 Status: Ordered glipiZIDE 5 mg oral tablet 15 mg, 3, tablet, By Mouth, Daily, # 270 tablet, Refills 1, Tot. Refills 1, Maintenance, 07/22/22 14:06:00 EST, Route to Pharmacy Electronically, [facility], Partial fill upon patient request [...] tablet, Refills 1, Route to Pharmacy Electronically, [email or web address], 161.5, cm, 08/16/21 14:16:00 EST, Height Start Date: 09/03/21 Status: Ordered LORazepam 0.5 mg oral tablet 1 tablet = 0.5 mg, By Mouth, Daily at bedtime, for 30 days, # 30 tablet, 2 Refills, Acute 10/17/22 8:19:00 EDT, 07/19/22 8:19:00 EST, [facility], 161.3, cm, 07/15/22 9:49:00 EST, [...] 10:55:00 EDT Start Date: 02/21/20 Status: Ordered [place]-3 oral capsule See Instructions, one daily, 0 [...] 08/10/22 9:47:00 EST, Route to Pharmacy Electronically, [facility]/pharmacy #[id number], Partial fill upon patient request if the [...] Start Date: 02/02/22 Status: Ordered Vitamin D 97237 iu oral capsule 50,000 International_Units, By Mouth, [...] Personnel Name: Dionicio ANTON, Lucy Yanez Position: [facility] PCO Associate Professional Member Role: PCP Address: Address: [address] [place] [address]- Care Team Related Persons Name: ALBA TATE Address: [address] [place] [address]
--- OUTSIDE RECORDS SUMMARY | 2023-11-15 15:29 | XMS_ITS | Continuity of Care Document ---
Author Organization [facility] José Luis Lalit lt Address [address] [place] [address]- Care Team Providers Care Transport Rn Name Role Phone Dionicio ANTON, Lucy Yanez Primary Care Physician Encounter [facility] Date(s): 02/27/23 - 03/29/23 [facility] Riccardo Ordonez Adult [address] [place] [address]- Allergies, Adverse Reactions, Alerts Substance Reaction Severity [...] tablet, 0 Refills, Maintenance, 10/31/22 11:47:00 EDT, [facility], 161, cm, 10/28/22 13:31:00 EDT, Height, 86.9, [...] capsule, 3 Refills, Maintenance, 01/27/23 9:13:00 EDT, [facility], 161, cm, 10/28/22 13:31:00 EDT, Height, 86.9, kg, 10/28/22 13:31:00 EDT, DryWeight Start Date: 01/27/23 Status: Ordered GlipiZIDE XL 10 mg oral tablet, extended release 2 tablet = 20 mg, By Mouth, Daily, # 180 tablet, 1 Refills, Maintenance, 02/16/23 6:50:00 EDT, [facility], Partial fill [...] tablet, Refills 1, Route to Pharmacy Electronically, [facility], 161.5, cm, 08/16/21 14:16:00 EST, Height Start Date: 09/03/21 Status: Ordered losartan 50 mg oral tablet 1 tablet, By Mouth, Daily, for 90 days, # 90 tablet, 1 Refills, Physician Stop 02/29/24 11:33:00 EDT, 09/02/23 11:33:00 EST, [facility], 161, cm, 02/22/23 11:03:00 EDT, Height,86.9, kg, 10/28/22 13:31:00 EDT, Dry Weight Start Date: 09/02/23 Stop Date: 02/29/24 Status: Ordered losartan 50 mg oral tablet 1 tablet, By Mouth, Daily, for 90 days, # 90 tablet, 1 Refills, Physician Stop 09/02/23 11:33:00 EST, 03/06/23 11:33:00 EDT, [facility]/pharmacy #[id number], 161, cm, 02/22/23 11:03:00 EDT, Height, [...] 10:55:00 EDT Start Date: 02/21/20 Status: Ordered [place]-3 oral capsule See Instructions, one daily, 0 [...] Start Date: 02/02/22 Status: Ordered Vitamin D 64550 iu oral capsule 50,000 International_Units, By Mouth, [...] Associate Professional Member Role: PCP Address: Address: [address] [place] [address]- Care Team Related Persons Name: ALBA TATE Address: home [address] [place] [address]
--- OUTSIDE RECORDS SUMMARY | 2023-11-15 15:29 | XMS_ITS | Continuity of Care Document ---
Author Organization [facility] José Luis Lalit lt Address [address] [place] [address]- Care Team Providers Care Secretary Administrative Assistant Name Role Phone Dionicio ANTON, Lucy Yanez Primary Care Physician [phone] Encounter [facility] Date(s): 07/22/22 - 08/21/22 [facility] José Luis Adult [address] [place] [address]- Allergies, Adverse Reactions, Alerts Substance Reaction Severity [...] 0 Refills, Maintenance, 07/17/22 15:34:00 EST, [facility], 161.3, cm, 07/15/22 9:49:00 EST, Height, 88, kg, 02/02/22 13:19:00 EDT, Dry Weight Start Date: 07/17/22 Status: Ordered glipiZIDE 5 mg oral tablet 15 mg, 3, tablet, By Mouth, Daily, # 270 tablet, Refills 1, Tot. Refills 1, Maintenance, 07/22/22 14:06:00 EST, Route to Pharmacy Electronically, [facility], Partial fill [...] tablet, Refills 1, Route to Pharmacy Electronically, [facility], 161.5, cm, 08/16/21 14:16:00 EST, Height Start Date: 09/03/21 Status: Ordered LORazepam 0.5 mg oral tablet 1 tablet = 0.5 mg, By Mouth, Daily at bedtime, for 30 days, # 30 tablet, 2 Refills, Acute 10/17/22 8:19:00 EDT, 07/19/22 8:19:00 EST, [facility], 161.3, cm, 07/15/22 9:49:00 EST, [...] 10:55:00 EDT Start Date: 02/21/20 Status: Ordered [place]-3 oral capsule See Instructions, one daily, 0 [...] 08/10/22 9:47:00 EST, Route to Pharmacy Electronically, [facility]/pharmacy #[id number], Partial fill upon patient request if the [...] Start Date: 02/02/22 Status: Ordered Vitamin D 97992 iu oral capsule 50,000 International_Units, By Mouth, [...] Personnel Name: Dionicio ANTON, Lucy Yanez Position: [facility] PCO Associate Professional Member Role: PCP Address: Address: [address] [place] [address]- Care Team Related Persons Name: ALBA TATE Address: home [address] [place] [address]
--- OUTSIDE RECORDS SUMMARY | 2023-11-15 15:29 | XMS_ITS | Continuity of Care Document ---
Author Organization [facility] Riccardo Ordonez Lalit lt Address [address] [place] [address]- Care Team Providers Care Decatizer Name Role Phone Dionicio ANTON, Lucy Yanez Primary Care Physician [phone] Encounter [facility] Date(s): 09/13/22 - 10/13/22 [facility] Riccardo Ordonez Adult [address] [place] [address]- Allergies, Adverse Reactions, Alerts Substance Reaction Severity [...] 0 Refills, Maintenance, 09/03/22 19:13:00 EST, Tablet, [facility]/pharmacy #[id number], Partial fill upon patient request [...] capsule, 0 Refills, Maintenance, 09/08/22 10:27:00 EST, [facility], 161, cm, 08/30/22 14:54:00 EST, Height, 88.9, kg, 08/30/22 14:54:00 EST, Dry Weight Start Date: 09/08/22 Status: Ordered glipiZIDE 5 mg oral tablet 15 mg, 3, tablet, By Mouth, Daily, for 90 days, # 270 tablet, Refills 1, Tot. Refills 1, Hard Stop 03/01/23 11:56:00 EDT, 09/02/22 11:56:00 EST, Route to Pharmacy Electronically, [facility]/pharmacy #[id number], Partial fill upon patient request if the prescriptio... Start Date: 09/02/22 Stop Date: 03/01/23 Status: Ordered glipiZIDE 5 mg oral tablet 15 mg, 3, tablet, By Mouth, Daily, # 270 tablet, Refills 1, Tot. Refills 1, Maintenance, 03/01/23 11:56:00 EDT, Route to Pharmacy Electronically, [facility], Partial fill upon patient request if the prescription is for a schedul... Start Date: 03/01/23 Stop Date: 08/28/23 Status: Ordered hydrochlorothiazide-triamterene 25 mg-37.5 mg oral capsule 1 capsule, By Mouth, Daily, # 90 capsule, 1 Refills, Maintenance, 09/08/22 10:28:00 EST, [facility], 0, 1 capsule By Mouth Daily, 161, cm, 08/30/22 14:54:00 EST, Height, 88.9, kg, 08/30/22 14:54:00 EST, Dry Weight Start Date: 09/08/22 Status: Ordered levothyroxine 0.05 mg oral tablet See Instructions, TAKE 1 TABLET DAILY, TAKE 2 TABLETS ON MONDAY, # 102 tablet, 0 Refills, 09/08/22 10:27:00 EST, [facility], 161, cm, 08/30/22 14:54:00 EST, Height, 88.9, kg, 08/30/22 14:54:00 EST, Dry Weight Start Date: 09/08/22 Status: Ordered loratadine 10 mg oral tablet 1, tablet, By Mouth, Daily, # 90 tablet, Refills 1, Route to Pharmacy Electronically, [facility] 23102, 161.5, cm, 08/16/21 14:16:00 EST, Height Start [...] 90 tablet, 3 Refills, 09/08/22 10:28:00 EST, [facility], 161, cm, 08/30/22 14:54:00 EST, Height, 88.9, kg, 08/30/22 14:54:00 EST, Dry Weight Start Date: 09/08/22 Status: Ordered Magnesium Magnesium, 0 Refills, Maintenance, 02/02/22 13:23:00 EDT Start Date: 02/02/22 Status: Ordered Multivitamin Daily, 0 Refills, Maintenance, 02/21/20 10:55:00 EDT Start Date: 02/21/20 Status: Ordered nystatin topical 582813 u/gm cream See Instructions, Topically 2 times a day x 14 days, # 30 Gm, 1 Refills, Acute 10/20/22 10:25:00 EDT, 10/13/22 10:24:00 EDT, [facility]/pharmacy #[id number], Partial fill upon patient request if the prescription is for a schedule II opioid drug., Topically 2 times... Start Date: 10/13/22 Stop Date: 10/20/22 Status: Ordered [place]-3 oral capsule See Instructions, one daily, 0 [...] tablet, 1 Refills, Maintenance, 09/08/22 10:29:00 EST, [facility], 161, cm, 08/30/22 14:54:00 EST, Height, [...] Start Date: 02/02/22 Status: Ordered Vitamin D 57646 iu oral capsule 50,000 International_Units, By Mouth, [...] Professional Member Role: PCP Address: Address: [address] [place] [address]- Care Team Related Persons Name: BEBETOPETERTT Address: home [address] [place] [address]
--- OUTSIDE RECORDS SUMMARY | 2023-11-15 15:29 | XMS_ITS | Continuity of Care Document ---
Author Organization [facility] José Luis Lalit lt Address [address] [place] [address]- Care Team Providers Care Quality Control Inspector Heading Name Role Phone Dionicio ANTON, Lucy Yanez Primary Care Physician [phone] Encounter [facility] Date(s): 04/18/22 - 05/18/22 [facility] Riccardo Ordonez Adult [address] [place] [address]- Allergies, Adverse Reactions, Alerts Substance Reaction Severity [...] tablet, Refills 1, Route to Pharmacy Electronically, [facility] 520[facility], 161.5, cm, 08/16/21 14:16:00 EST, Height Start [...] 10:55:00 EDT Start Date: 02/21/20 Status: Ordered [place]-3 oral capsule See Instructions, one daily, 0 [...] Start Date: 02/02/22 Status: Ordered Vitamin D 19697 iu oral capsule 50,000 International_Units, By Mouth, [...] Personnel Name: Lucy Greenberg NP Address: Address: [address] [place] [address]
--- OUTSIDE RECORDS SUMMARY | 2023-11-15 15:29 | XMS_ITS | Continuity of Care Document ---
Author Organization [facility] Riccardo Ordonez Lalit lt Address [address] [place] [address]- Care Team Providers Care Strategic Planner Name Role Phone Dionicio ANTON, Lucy Yanez Primary Care Physician En[place] [facility] Date(s): 01/20/20 - 02/19/20 [facility] Adult [address] [place] [address]- [facility] Allergies, Adverse Reactions, Alerts Substance [...] 04/10/20 8:57:00 EDT, 02/10/20 8:57:00 EDT, [facility], 161.5, cm, [...] Required Details Start Date: 05/06/19 Status: Ordered [place]-3 oral capsule See Instructions, one daily, 0 [...]
--- OUTSIDE RECORDS SUMMARY | 2023-11-15 15:29 | XMS_ITS | Continuity of Care Document ---
Author Organization [facility] José Luis Lalit lt Address [address] [place] [address]- Care Team Providers Care Aerosol Line Operator Name Role Phone Dionicio ANTON, Lucy Yanez Primary Care Physician Encounter [facility] Date(s): 02/16/22 - 03/18/22 [facility] Riccardo Ordonez Adult [address] [place] [address]- Allergies, Adverse Reactions, Alerts Substance Reaction Severity [...] 1, Route to Pharmacy Electronically, [facility], 161.5, cm, 08/16/21 14:16:00 EST, Height Start [...] 10:55:00 EDT Start Date: 02/21/20 Status: Ordered [place]-3 oral capsule See Instructions, one daily, 0 [...] Start Date: 02/02/22 Status: Ordered Vitamin D 28112 iu oral capsule 50,000 International_Units, By Mouth, [...] on: 05/16/19 Sex Care Team Personnel Name: Dionicio ANTON, Lucy Yanez Address: [address] [place] [address]-
--- OUTSIDE RECORDS SUMMARY | 2023-11-15 15:29 | XMS_ITS | Continuity of Care Document ---
Author Organization [facility] José Luis Lalit lt Address [address] [place] [address]- Care Team Providers Care Sales Marketing Director Name Role Phone Dionicio ANTON, Lucy Yanez Primary Care Physician [phone] Encounter [facility] Date(s): 03/27/20 - 04/26/20 [facility] Adult [address] [place] [address]- [facility] Allergies, Adverse Reactions, Alerts Substance Reaction [...] 3 Refills, Maintenance, 01/14/20 11:32:00 EDT, [facility], 161.5, cm, 01/07/20 15:02:00 EDT, Height Start Date: 01/14/20 Status: Ordered Multivitamin Daily, 0 Refills, Maintenance, 02/21/20 10:55:00 EDT Start Date: 02/21/20 Status: Ordered Nexium Capsule See Instructions, 22 mg 1 every other day, Refills 0, Maintenance, 05/06/19 16:33:27 EDT, Instructions Replace Required Details Start Date: 05/06/19 Status: Ordered [place]-3 oral capsule See Instructions, one daily, 0 [...]
--- OUTSIDE RECORDS SUMMARY | 2023-11-15 15:29 | XMS_ITS | Continuity of Care Document ---
Author Organization [facility] José Luis Lalit lt Address [address] [place] [address]- Care Team Providers Care Physical Sciences Instructor Name Role Phone Dionicio ANTON, Lucy Yanez Primary Care Physician [phone] Encounter [facility] Date(s): 02/08/23 - 03/10/23 [facility] Adult [address] [place] [address]- Allergies, Adverse Reactions, Alerts Substance Reaction Severity [...] tablet, 0 Refills, Maintenance, 10/31/22 11:47:00 EDT, [facility], 161, cm, 10/28/22 13:31:00 EDT, Height, 86.9, [...] 01/27/23 9:13:00 EDT, [facility], 161, cm, 10/28/22 13:31:00 EDT, Height, 86.9, kg, 10/28/22 13:31:00 EDT, DryWeight Start Date: 01/27/23 Status: Ordered GlipiZIDE XL 10 mg oral tablet, extended release 2 tablet = 20 mg, By Mouth, Daily, # 180 tablet, 1 Refills, Maintenance, 02/16/23 6:50:00 EDT, [facility], Partial fill upon patient request if the prescription is for a schedule II opioid drug., 161, cm, 02/07/23 11:15:00 EDT,... Start Date: 02/16/23 Status: Ordered hydrochlorothiazide-triamterene 25 mg-37.5 mg oral capsule 1 capsule, By Mouth, Daily, # 90 capsule, 1 Refills, Maintenance, 09/08/22 10:28:00 EST, [facility], [facility], 1 capsule By Mouth Daily, 161, cm, 08/30/22 14:54:00 EST, Height, 88.9, kg, 08/30/22 14:54:00 EST, Dry Weight Start Date: 09/08/22 Status: Ordered loratadine 10 mg oral tablet 1, tablet, By Mouth, Daily, # 90 tablet, Refills 1, Route to Pharmacy Electronically, [facility], 161.5, cm, 08/16/21 14:16:00 EST, Height Start Date: 09/03/21 Status: Ordered losartan 50 mg oral tablet 1 tablet, By Mouth, Daily, for 90 days, # 90 tablet, 1 Refills, Physician Stop 09/02/23 11:33:00 EST, 03/06/23 11:33:00 EDT, [facility] #[id number], 161, cm, 02/22/23 11:03:00 EDT, [...] 10:55:00 EDT Start Date: 02/21/20 Status: Ordered [place]-3 oral capsule See Instructions, one daily, 0 [...] Start Date: 02/02/22 Status: Ordered Vitamin D 32675 iu oral capsule 50,000 International_Units, By Mouth, [...] Personnel Name: Dionicio ANTON, Lucy Yanez Position: [facility] PCO Associate Professional Member Role: PCP Address: Address: [address] [place] [address]- Care Team Related Persons Name: ALBA TATE Address: home [address] [place] [address]
--- OUTSIDE RECORDS SUMMARY | 2023-11-15 15:29 | XMS_ITS | Continuity of Care Document ---
Author Organization [facility] José Luis Lalit lt Address [address] [place] [address]- Care Team Providers Care Line Assembly Utility Worker Name Role Phone Dionicio ANTON, Lucy Yanez Primary Care Physician Encounter [facility] Date(s): 08/16/21 - 08/23/21 [facility] Adult [address] [place] [address]- Encounter Diagnosis Type II diabetes mellitus(Discharge Diagnosis) - 08/16/21 Attending Physician: Not on Staff, Attending MD Referring Physician: Lucy Greenberg NP Allergies, Adverse Reactions, [...] opioid drug. Start Date: 08/09/21 Status: Ordered Claritin 10 mg oral tablet 10 mg, 1, tablet, By Mouth, Daily, # 90 tablet, Refills 1, Tot. Refills 1, Maintenance, 03/08/21 9:39:00 EDT, Route to Pharmacy Electronically, [facility]/pharmacy #[id number], 161.5, cm, 12/30/20 11:09:00 EDT, Height Start Date: 03/08/21 Status: Ordered Crestor 10 mg oral tablet 1 tablet = 10 mg, By Mouth, Daily, # 90 tablet, 3 Refills, Maintenance, 12/30/20 11:48:00 EDT, Tablet, [facility], 161.5, cm, 12/30/20 11:09:00 EDT, Height Start Date: 12/30/20 Status: Ordered glipiZIDE 2.5 mg oral tablet, extended release 1 tablet = 2.5 mg, By Mouth, Daily, # 30 tablet, 0 Refills, Maintenance, 08/16/21 16:06:00 EST, ER Tablet, [facility]/pharmacy #[id number], Partial fill upon patient request if the prescription is for a schedule II opioid drug., 161.5, cm, 08/16/21 14:16:00 EST, H... Start Date: 08/16/21 Status: Ordered hydrochlorothiazide-triamterene 25 mg-37.5 mg oral [...] Required Details Start Date: 05/06/19 Status: Ordered [place]-3 oral capsule See Instructions, [...] Diagnosis Diagnosis Type Effective Dates Health Status Cl inical Service Informant Type II diabetes mellitus Discharge Diagnosis 08/16/21 Vital Signs Most recent to oldest [Reference Range]: 1 Height 161.5 cm (08/16/21 2:16 PM) Social History Social History Type Response Smoking Status Former smoker, quit more than 30 days ago entered on: 05/16/19 Sex
--- OUTSIDE RECORDS SUMMARY | 2023-11-15 15:29 | XMS_ITS | Continuity of Care Document ---
Author Organization [facility] José Luis Lalit lt Address [address] [place] [address]- Care Team Providers Care Rn L And D Name Role Phone Dionicio ANTON, Lucy Yanez Primary Care Physician [phone] Encounter [facility] Date(s): 11/03/21 - 12/03/21 [facility] José Luis Adult [address] [place] [address]- Allergies, Adverse Reactions, Alerts Substance Reaction Severity [...] tablet, 3 Refills, 10/11/21 11:14:00 EDT, [facility], 161.5, cm, 10/11/21 10:53:00 EDT, Height Start Date: 10/11/21 Status: Ordered loratadine 10 mg oral tablet 1, tablet, By Mouth, Daily, # 90 tablet, Refills 1, Route to Pharmacy Electronically, [facility]60, 161.5, cm, 08/16/21 14:16:00 EST, Height Start Date: 09/03/21 Status: Ordered losartan 50 mg oral tablet 50 mg, 1, tablet, By Mouth, Daily, # 90 tablet, Refills 3, Tot. Refills 3, Maintenance, 12/30/20 11:48:00 EDT, Route to Pharmacy Electronically, [facility], 161.5, cm, 12/30/20 11:09:00 EDT, Height Start Date: 12/30/20 Status: Ordered Multivitamin Daily, 0 Refills, Maintenance, 02/21/20 10:55:00 EDT Start Date: 02/21/20 Status: Ordered Nexium 20 mg oral enteric coated capsule 1 capsule = 20 mg, By Mouth, Daily, # 90 capsule, 1 Refills, Maintenance, 09/13/21 9:37:00 EST, EC Capsule, [facility], Partial fill upon patient request if the prescription is fora schedule II opioid drug., 161.5, cm, 09/13/21 8:5... Start Date: 09/13/21 Status: Ordered Nexium Capsule See Instructions, 22 mg 1 every other day, Refills 0, Maintenance, 05/06/19 16:33:27 EDT, Instructions Replace Required Details Start Date: 05/06/19 Status: Ordered [place]-3 oral capsule See Instructions, one daily, 0 [...]
--- OUTSIDE RECORDS SUMMARY | 2023-11-15 15:29 | XMS_ITS | Continuity of Care Document ---
Author Organization [facility] Riccardo Ordonez Lalit lt Address [address] [place] [address]- Care Team Providers Care Columnist Name Role Phone Dionicio ANTON, Lucy Yanez Primary Care Physician [phone] Encounter [facility] Date(s): 09/08/22 - 10/08/22 [facility] Riccardo Ordonez Adult [address] [place] [address]- Allergies, Adverse Reactions, Alerts Substance Reaction Severity Status cefuroxime Active beta blockers Active Bactrim Active Latex rash Active ALVARO inhibitors muscle pain Active metFORMIN Diarrhea Active Macrobid 1, 2 Active 1Reports Macrobid [...] 0 Refills, Maintenance, 09/03/22 19:13:00 EST, Tablet, [facility]/pharmacy #[id number], Partial fill upon patient request if [...] 0 Refills, Maintenance, 09/08/22 10:27:00 EST, [facility], 161, cm, 08/30/22 14:54:00 EST, Height, 88.9, kg, 08/30/22 14:54:00 EST, Dry Weight Start Date: 09/08/22 Status: Ordered glipiZIDE 5 mg oral tablet 15 mg, 3, tablet, By Mouth, Daily, for 90 days, # 270 tablet, Refills 1, Tot. Refills 1, Hard Stop 03/01/23 11:56:00 EDT, 09/02/22 11:56:00 EST, Route to Pharmacy Electronically, [facility]/pharmacy #[id number], Partial fill upon patient request if the prescriptio... Start Date: 09/02/22 Stop Date: 03/01/23 Status: Ordered glipiZIDE 5 mg oral tablet 15 mg, 3, tablet, By Mouth, Daily, # 270 tablet, Refills 1, Tot. Refills 1, Maintenance, 03/01/23 11:56:00 EDT, Route to Pharmacy Electronically, [facility], Partial fill [...] tablet, 0 Refills, 09/08/22 10:27:00 EST, [facility], 161, cm, 08/30/22 14:54:00 EST, Height, 88.9, kg, 08/30/22 14:54:00 EST, Dry Weight Start Date: 09/08/22 Status: Ordered loratadine 10 mg oral tablet 1, tablet, By Mouth, Daily, # 90 tablet, Refills 1, Route to Pharmacy Electronically, [facility] 52356, 161.5, cm, 08/16/21 14:16:00 EST, Height Start [...] 10:55:00 EDT Start Date: 02/21/20 Status: Ordered [place]-3 oral capsule See Instructions, one daily, 0 [...] Start Date: 02/02/22 Status: Ordered Vitamin D 40958 iu oral capsule 50,000 International_Units, By Mouth, [...] Professional Member Role: PCP Address: Address: [address] [place] [address]- Care Team Related Persons Name: ALBA TATE Address: home [address] [place] [address]
--- OUTSIDE RECORDS SUMMARY | 2023-11-15 15:29 | XMS_ITS | Continuity of Care Document ---
Author Organization [facility] José Luis Lalit lt Address [address] [place] [address]- Care Team Providers Care Director Of Casework Name Role Phone Dionicio ANTON, Lucy Yanez Primary Care Physician [phone] Encounter [facility] Date(s): 04/01/21 - 04/08/21 [facility] José Luis Adult [address] [place] [address]- Encounter Diagnosis Anxiety(Discharge Diagnosis) - 04/01/21 Benign essential hypertension(Discharge Diagnosis) - 04/01/21 Hypercholesterolemia(Discharge Diagnosis) - 04/01/21 Hypothyroidism(Discharge Diagnosis) - 04/01/21 Recurrent pneumonia(Discharge Diagnosis) - 04/01/21 Attending Physician: Lucy Greenberg NP Referring Physician: Wade Borges MD Allergies, Adverse Reactions, Alerts Substance Reaction Severity Status cefuroxime Active Latex rash Active ALVARO inhibitors muscle pain Active Macrobid [...] 03/08/21 9:39:00 EDT, Route to Pharmacy Electronically, [facility]/pharmacy #[id number], 161.5, cm, 12/30/20 11:09:00 EDT, [...] Date: 12/30/20 Stop Date: 02/28/21 Status: Ordered losartan 50 mg oral tablet [...] tablet, 3 Refills, Maintenance, 12/30/20 11:45:00EDT, [facility], 161.5, cm, 12/30/20 11:09:00 EDT, Height Start Date: 12/30/20 Stop Date: 12/25/21 Status: Ordered Multivitamin Daily, 0 Refills, Maintenance, 02/21/20 10:55:00 EDT Start Date: 02/21/20 Status: Ordered Nexium Capsule See Instructions, 22 mg 1 every other day, Refills 0, Maintenance, 05/06/19 16:33:27 EDT, Instructions Replace Required Details Start Date: 05/06/19 Status: Ordered [place]-3 oral capsule See Instructions, one daily, 0 [...] Status Clinical Service Informant Anxiety Discharge Diagnosis 04/01/21 Benign essential hypertension Discharge Diagnosis 04/01/21 Hypercholesterolemia Discharge Diagnosis 04/01/21 Hypothyroidism Discharge Diagnosis 04/01/21 Recurrent pneumonia Discharge Diagnosis 04/01/21 Vital Signs Most recent to oldest [Reference Range]: 1 Height 161.5 cm (04/01/21 11:03 AM) Weight 84.9 kg (04/01/21 11:03 AM) Oxygen Saturation [94-100 %] 98 % (04/01/21 11:03 AM) Pulse Rate [55-90 bpm] 77 bpm (04/01/21 11:03 AM) Body Mass Index [18.5-24.99] 32.55 *>HHI* (04/01/21 11:03 AM) Blood Pressure [90-138/55-84 mm Hg] 135/ 84mm Hg (04/01/21 11:03 AM) Temperature [96.8-100.4 DegF] 97.3 DegF (04/01/21 11:03 AM) Blood pressure sites Arm, left (04/01/21 11:03 AM) Temperature Route Oral (04/01/21 11:03 AM) Weight Obtained Via Standing scale (04/01/21 11:03 AM) Social History Social History Type Response Smoking Status Former smoker, quit more than 30 days ago entered on: 05/16/19 Sex
--- OUTSIDE RECORDS SUMMARY | 2023-11-15 15:29 | XMS_ITS | Continuity of Care Document ---
Author Organization [facility] Riccardo Ordonez Lalit lt Address [address] [place] [address]- Care Team Providers Care Medical Support Assistant Name Role Phone Dionicio ANTON, Lucy Yanez Primary Care Physician [phone] [place] [facility] [place] 08/21/22 [facility] Riccardo Ordonez Adult [address] [place] [address]- Allergies, Adverse Reactions, Alerts Substance Reaction Severity [...] 0 Refills, Maintenance, 07/17/22 15:34:00 EST, [facility], 161.3, cm, 07/15/22 9:49:00 EST, Height, 88, kg, 02/02/22 13:19:00 EDT, Dry Weight Start Date: 07/17/22 Status: Ordered glipiZIDE 5 mg oral tablet 15 mg, 3, tablet, By Mouth, Daily, # 270 tablet, Refills 1, Tot. Refills 1, Maintenance, 07/22/22 14:06:00 EST, Route to Pharmacy Electronically, [facility] [...] tablet, Refills 1, Route to Pharmacy Electronically, [id number], 161.5, cm, 08/16/21 14:16:00 EST, Height Start Date: 09/03/21 Status: Ordered LORazepam 0.5 mg oral tablet 1 tablet = 0.5 mg, By Mouth, Daily at bedtime, for 30 days, # 30 tablet, 2 Refills, Acute 10/17/22 8:19:00 EDT, 07/19/22 8:19:00 EST, [facility], 161.3, cm, 07/15/22 9:49:00 EST, [...] 10:55:00 EDT Start Date: 02/21/20 Status: Ordered Jamison-3 oral capsule See Instructions, one daily, 0 [...] 9:47:00 EST, Route to Pharmacy Electronically, [facility]/pharmacy #[id number], Partial fill upon patient request if the [...] Start Date: 02/02/22 Status: Ordered Vitamin D 43025 iu oral capsule 50,000 International_Units, By Mouth, [...] Personnel Name: Dionicio ANTON, Lucy Yanez Position: [facility]O Associate Professional Member Role: PCP Address: Address: [address] [place] [id number]- Care Team Related Persons Name: ALBA TATE Address: home [address] [place] [address]
--- OUTSIDE RECORDS SUMMARY | 2023-11-15 15:30 | XMS_ITS | Continuity of Care Document ---
Author Organization [facility] José Luis Lalit lt Address [address] [place] [address]- Care Team Providers Care Assistant Director Of Financial Aid Name Role Phone Dionicio ANTON, Lucy Yanez Primary Care Physician [phone] [place] [facility] [place] 09/08/21 [facility] José Luis Adult [address] [place] [address]- Allergies, Adverse Reactions, Alerts Substance Reaction Severity [...] = 2.5 mg, By Mouth, Daily, # 90 tablet, 1 Refills, Maintenance, 09/01/21 12:40:00 EST, ER Tablet, [facility], Partial fill upon patient request if the prescription is for a schedule II opioid drug., 161.5, cm, 08/16/21 14:1... Start Date: 09/01/21 Status: Ordered hydrochlorothiazide-triamterene 25 mg-37.5 mg oral [...] EDT, Height Start Date: 04/24/21 Status: Ordered loratadine 10 mg oral tablet 1, tablet, By Mouth, Daily, # 90 tablet, Refills 1, Route to Pharmacy Electronically, [facility], 161.5, cm, 08/16/21 14:16:00 EST, Height Start Date: 09/03/21 Status: Ordered losartan 50 mg oral tablet 50 mg, 1, tablet, By Mouth, Daily, # 90 tablet, Refills 3, Tot. Refills 3, Maintenance, 12/30/20 11:48:00 EDT, Route to Pharmacy Electronically, [facility], 161.5, cm, 12/30/20 11:09:00 EDT, Height Start Date: 12/30/20 Status: Ordered Multivitamin Daily, 0 Refills, Maintenance, 02/21/20 10:55:00 EDT Start Date: 02/21/20 Status: Ordered Nexium Capsule See Instructions, 22 mg 1 every other day, Refills 0, Maintenance, 05/06/19 16:33:27 EDT, Instructions Replace Required Details Start Date: 05/06/19 Status: Ordered Elburn-3 oral capsule See Instructions, one daily, 0 [...] cm, 02/21/20 10:48:00 EDT, Height Start Date: 8/25/20 Status: Ordered pantoprazole 20 mg oral delayed [...]
--- OUTSIDE RECORDS SUMMARY | 2023-11-15 15:30 | XMS_ITS | Continuity of Care Document ---
Author Organization [facility] Riccardo Ordonez Lalit lt Address [address] [place] [address]- Care Team Providers Care Allied Health Instructor Name Role Phone Dionicio ANTON, Lucy Yanez Primary Care Physician [phone] Encounter [facility] Date(s): 04/20/23 - 05/20/23 [facility] Riccardo Ordonez Adult [address] [place] [address]- Allergies, Adverse Reactions, Alerts Substance Reaction Severity [...] (oldterm) 1 04/19/23 Recor ded SARS-CoV-2 mRNA (flpuiri-rnpy-nfmbo) vax 2 04/19/23 Recorded influenza virus vaccine, inactivated 04/05/22 Boyd rded influenza virus vaccine, inactivated 04/28/21 Give n influenza virus vaccine, inactivated 04/22/20 Give n influenza virus vaccine, inactivated 04/09/19 Boyd rded influenza virus vaccine, inactivated 03/28/18 Boyd rded [id number] bivalent booster vax 04/02/22 Recorded SARS-CoV-2 (COVID-19) mRNA-1273 vaccine 11/25/21 R ecorded SARS-CoV-2 (COVID-19) mRNA BNT-162b2 vac 04/22/21 Recorded SARS-CoV-2 (COVID-19) mRNA BNT-162b2 vac 09/09/20 Given SARS-CoV-2 (COVID-19) mRNA BNT-162b2 vac 08/19/20 Recorded zoster vaccine, inactivated 04/06/19 Recorded 1Result Comment: [facility] [place] 2Result Comment: [facility] [place] Medications Accu-Chek Paradise Glucose Meter See Instructions, [...] 1 Refills, Maintenance, 04/09/23 17:21:00 EDT, [facility], 161, cm, 02/22/23 [...] Maintenance, 02/16/23 6:50:00 EDT, [facility], Partial fill upon patient request if the prescription is for a schedule II opioid drug., 161, cm, 02/07/23 11:15:00 EDT,... Start Date: 02/16/23 Status: Ordered hydrochlorothiazide-triamterene 25 mg-37.5 mg oral capsule 1 capsule, By Mouth, Daily, # 90 capsule, 1 Refills, Maintenance, 04/06/23 8:40:00 EDT, [facility], 90, TAKE 1 [...] Start Date: 12/27/19 Status: Ordered Vitamin D 86533 iu oral capsule 50,000 International_Units, By Mouth, [...] Personnel Name: Dionicio ANTON, Lucy Yanez Position: [facility] PCO Associate Professional Member Role: PCP Address: Address: [address] [place] [id number]- Care Team Related Persons Name: ALBA TATE Address: [address] [place] [address]
--- OUTSIDE RECORDS SUMMARY | 2023-11-15 15:30 | XMS_ITS | Continuity of Care Document ---
Author Organization [facility] José Luis Lalit lt Address [address] [place] [address]- Care Team Providers Care Rn Dialysis Name Role Phone Dionicio ANTON, Lucy Yanez Primary Care Physician Encounter [facility] [place] Date(s): 10/29/21 - 11/28/21 [facility] [place] Adult [address] [place] [address]- Allergies, Adverse Reactions, Alerts Substance Reaction Severity [...] tablet, 3 Refills, 10/11/21 11:14:00 EDT, [facility], 161.5, cm, 10/11/21 10:53:00 EDT, Height Start Date: 10/11/21 Status: Ordered loratadine 10 mg oral tablet 1, tablet, By Mouth, Daily, # 90 tablet, Refills 1, Route to Pharmacy Electronically, [facility], 161.5, cm, 08/16/21 14:16:00 EST, Height Start Date: 09/03/21 Status: Ordered losartan 50 mg oral tablet 50 mg, 1, tablet, By Mouth, Daily, # 90 tablet, Refills 3, Tot. Refills 3, Maintenance, 12/30/20 11:48:00 EDT, Route to Pharmacy Electronically, [facility], 161.5, cm, 12/30/20 11:09:00 EDT, Height Start Date: 12/30/20 Status: Ordered Multivitamin Daily, 0 Refills, Maintenance, 02/21/20 10:55:00 EDT Start Date: 02/21/20 Status: Ordered Nexium 20 mg oral enteric coated capsule 1 capsule = 20 mg, By Mouth, Daily, # 90 capsule, 1 Refills, Maintenance, 09/13/21 9:37:00 EST, EC Capsule, [facility], Partial fill upon patient request if the prescription is fora schedule II opioid drug., 161.5, cm, 09/13/21 8:5... Start Date: 09/13/21 Status: Ordered Nexium Capsule See Instructions, 22 mg 1 every other day, Refills 0, Maintenance, 05/06/19 16:33:27 EDT, Instructions Replace Required Details Start Date: 05/06/19 Status: Ordered [place]-3 oral capsule See Instructions, one daily, 0 [...]
--- OUTSIDE RECORDS SUMMARY | 2023-11-15 15:30 | XMS_ITS | Continuity of Care Document ---
Author Organization [facility] Riccardo Ordonez Lalit lt Address [address] [place] [address]- Care Team Providers Care Tourist Information Assistant Name Role Phone Dionicio ANTON, Lucy Yanez Primary Care Physician [phone] Encounter [facility] [place] Date(s): 01/21/20 - 02/20/20 [facility] Adult [address] [place] [address]- [facility] Allergies, Adverse Reactions, Alerts Substance Reaction Severity [...] Required Details Start Date: 05/06/19 Status: Ordered Claridge-3 oral capsule See Instructions, one daily, 0 [...]
--- OUTSIDE RECORDS SUMMARY | 2023-11-15 15:30 | XMS_ITS | Continuity of Care Document ---
Author Organization [facility] Address [address] [place] [address]- Care Team Providers Care Director Television News Name Role Phone Dionicio ANTON, Samara Yanez Primary Care Physician [phone] Encounter 01/29/20 - 02/05/20 [facility] [address], [facility] [address] [place] [address]- [phone] Attending Physician: Samara Greenberg NP Admitting Physician: Samara Greenberg NP Referring Physician: Dionicio ANTON, Samara Yanez Allergies, Adverse Reactions, Alerts Substance Reaction [...] recheck tsh level in 6 weeks, # 49 tablet, 0 Refills, Maintenance, 01/07/20 15:36:00 EDT, [facility]/pharmacy #[id number], 161.5, cm, 01/07/20 15:02:00 EDT, Height Start Date: 01/07/20 Stop Date: 02/25/20 Status: Ordered LORazepam 0.5 mg oral tablet 1 tablet = 0.5 mg, By Mouth, Daily at bedtime, for 30 days, # 30 tablet, 1 Refills, Acute 03/22/20 10:02:00 EDT, 01/22/20 10:02:00 EDT, [facility], 161.5, cm, 01/07/20 15:02:00 EDT, Height Start Date: 01/22/20 Stop Date: 03/22/20 Status: Ordered losartan 50 mg oral tablet 50 mg, 1, tablet, By Mouth, Daily, # 90 tablet, Refills 3, Tot. Refills 3, Maintenance, 01/14/20 11:31:00 EDT, Route to Pharmacy Electronically, [email or web address], 161.5, cm, 01/07/20 15:02:00 EDT, Height Start Date: 01/14/20 Status: Ordered metFORMIN 500 mg oral tablet, extended release 1 tablet = 500 mg, By Mouth, 2 times a day, replace short acting, # 180 tablet, 3 Refills, Maintenance, 01/14/20 11:32:00 EDT, [email or web address], 161.5, cm, 01/07/20 15:02:00 EDT, Height Start Date: 01/14/20 Status: Ordered Nexium Capsule See Instructions, 22 mg 1 every other day, Refills 0, Maintenance, 05/06/19 16:33:27 EDT, Instructions Replace Required Details Start Date: 05/06/19 Status: Ordered [place]-3 oral capsule See Instructions, one daily, [...] Hypothyroidism(Confirmed) Active Type II diabetes mellitus(Confirmed) Active Results Radiology Reports * Exam Date Time Procedure Performing Provider Status 01/29/20 11:19 AM Dexa Bone Density (Axial) Me lillian Hester; Beth (Verified) Notes: (Dexa Bone Density (Axial)) Reason For Exam: Post Menopausal RESULT: DEXA BONE DENSITY (AXIAL) Bone Density Report Name: RENEE TATE Age: 79 Sex: Female Ethnicity: White Date of : 1940 Indication: POSTMENOPAUSAL. Referring Provider: SAMARA GREENBERG Study: Bone densitometry was performed. Exam Date: January 29, 2020 Accession number: [id number] Bone Density: Region BMD T-score Z-score Classification AP Spine (L1-L4) 1.271 2.0 4.6 Normal Femoral Neck (Left) 0.917 0.6 2.8 Normal Total Hip (Left) 1.080 1.1 3.0 Normal World Health Organization criteria for BMD impression classify patients as: Normal (T-score at or above -1.0), Osteopenia (T-score between -1.0 and -2.5), or Osteoporosis (T-score at or below -2.5). 10-year Fracture Risk: FRAX not reported because: All T-scores at or above -1.0 Clinical Information Provided by Patient: Has used the following medications: HRT (i.e. estrogen/hormone therapy), Vitamin D Patient maximum height was 65.5 Menopause Age: 57 Onset of menses at age 14 Number of children 3 Impression: The patient has normal bone density as determined by WHO criteria. A repeat bone density assessment should be considered in two years. Reported by: Valente Gordillo MD on 01/29/2020 12:42:00 PM. Dictated By: Valente Gordillo MD Dictated Date/Time: 01/29/20 12:43 p Reviewed By: Valente Gordillo MD Signed By: Valente Gordillo MD Signed Date/Time: 01/29/20 12:43 pm Transcribed By: RADHA Transcribed Date/Time: 01/29/20 12:43 pm Social History Social History Type Response Smoking Status Former smoker, quit more than 30 days ago entered on: 05/16/19 Sex
--- OUTSIDE RECORDS SUMMARY | 2023-11-15 15:30 | XMS_ITS | Continuity of Care Document ---
Author Organization [facility] José Luis Lalit lt Address [address] [place] [address]- Care Team Providers Care Roofing Supervisor Name Role Phone Dionicio ANTON, Lucy Yanez Primary Care Physician [phone] [place] [facility] [place] Date(s): 02/02/23 - 03/04/23 [facility] [place] Adult [address] [place] [address]- Allergies, Adverse Reactions, Alerts Substance Reaction Severity [...] tablet, 0 Refills, Maintenance, 10/31/22 11:47:00 EDT, [facility], 161, cm, 10/28/22 13:31:00 EDT, Height, 86.9, [...] capsule, 3 Refills, Maintenance, 01/27/23 9:13:00 EDT, [facility], 161, cm, 10/28/22 13:31:00 EDT, Height, 86.9, kg, 10/28/22 13:31:00 EDT, DryWeight Start Date: 01/27/23 Status: Ordered GlipiZIDE XL 10 mg oral tablet, extended release 2 tablet = 20 mg, By Mouth, Daily, # 180 tablet, 1 Refills, Maintenance, 02/16/23 6:50:00 EDT, [facility], Partial fill upon patient request if the prescription is for a schedule II opioid drug., 161, cm, 02/07/23 11:15:00 EDT,... Start Date: 02/16/23 Status: Ordered hydrochlorothiazide-triamterene 25 mg-37.5 mg oral capsule 1 capsule, By Mouth, Daily, # 90 capsule, 1 Refills, Maintenance, 09/08/22 10:28:00 EST, [facility], 0, 1 capsule By Mouth Daily, 161, cm, 08/30/22 14:54:00 EST, Height, 88.9, kg, 08/30/22 14:54:00 EST, Dry Weight Start Date: 09/08/22 Status: Ordered loratadine 10 mg oral tablet 1, tablet, By Mouth, Daily, # 90 tablet, Refills 1, Route to Pharmacy Electronically, [facility] 700[facility], 161.5, cm, 08/16/21 14:16:00 EST, Height Start Date: 09/03/21 Status: Ordered losartan 50 mg oral tablet 1 tablet, By Mouth, Daily, for 7 days, # 7 tablet, 0 Refills, Physician Stop 03/06/23 11:33:00 EDT,02/27/23 11:33:00 EDT, [facility]/pharmacy #[id number], 161, cm, 02/22/23 11:03:00 EDT, Height, 86.9, kg, 10/28/22 13:31:00 EDT, Dry Weight Start Date: 02/27/23 Stop Date: 03/06/23 Status: Ordered losartan 50 mg oral tablet 1 tablet, By Mouth, Daily, for 90 days, # 90 tablet, 1 Refills, Physician Stop 09/02/23 11:33:00 EST, 03/06/23 11:33:00 EDT, [facility]/pharmacy #[id number], 161, cm, 02/22/23 11:03:00 [...] 10:55:00 EDT Start Date: 02/21/20 Status: Ordered [place]-3 oral capsule See Instructions, one daily, 0 [...] tablet, 1 Refills, Maintenance, 09/08/22 10:29:00 EST, [facility], 161, cm, 08/30/22 14:54:00 EST, Height, 88.9, kg, 08/30/22 14:54:00 EST, Dry Weight Start Date: 09/08/22 Status: Ordered Synthroid 0.05 mg oral tablet 1 tablet, By Mouth, Daily, TAKE 2TABLETS ON MONDAY, # 102 tablet, 1 Refills, Maintenance, 01/27/23 4:55:00 EDT, [facility], 161, cm, 10/28/22 13:31:00 [...] Start Date: 02/02/22 Status: Ordered Vitamin D 69859 iu oral capsule 50,000 International_Units, By Mouth, [...] Professional Member Role: PCP Address: Address: [address] [place] [id number]- Care Team Related Persons Name: ALBA TATE Address: home [address] [place] [address]
--- OUTSIDE RECORDS SUMMARY | 2023-11-15 15:30 | XMS_ITS | Continuity of Care Document ---
Author Organization [facility] Riccardo Ordonez Lalit lt Address [address] [place] [address]- Care Team Providers Care Color Technician Name Role Phone Dionicio ANTON, Lucy Yanez Primary Care Physician [facility]counter [facility] Date(s): 10/09/23 - 11/08/23 [facility] Riccardo Ordonez Adult [address] [place] [address]- Allergies, Adverse Reactions, Alerts Substance Reaction Severity [...] (oldterm) 1 04/19/23 Recor ded SARS-CoV-2 mRNA (gushmpd-jswr-cutut) vax 2 04/19/23 Recorded influenza virus vaccine, inactivated 04/05/22 Boyd rded influenza virus vaccine, inactivated 04/28/21 Give n influenza virus vaccine, inactivated 04/22/20 Give n influenza virus vaccine, inactivated 04/09/19 Boyd rded influenza virus vaccine, inactivated 03/28/18 Boyd rded [id number] bivalent booster vax 04/02/22 Recorded SARS-CoV-2 (COVID-19) mRNA-1273 vaccine 11/25/21 R ecorded SARS-CoV-2 (COVID-19) mRNA BNT-162b2 vac 04/22/21 Recorded SARS-CoV-2 (COVID-19) mRNA BNT-162b2 vac 09/09/20 Given SARS-CoV-2 (COVID-19) mRNA BNT-162b2 vac 08/19/20 Recorded zoster vaccine, inactivated 04/06/19 Recorded 1Result Comment: [facility] [place] 2Result Comment: [facility] [place] Medications Accu-Chek [place] Glucose Meter See Instructions, [...] tablet, 1 Refills, Maintenance, 09/03/23 6:59:00 EST, [facility], 161, cm, 05/16/23 10:58:00 EDT, Height, 84.7, kg, 05/04/23 15:05:00 EDT, Dry Weight Start Date: 09/03/23 Status: Ordered esomeprazole 20 mg oral enteric coated capsule 1 capsule, By Mouth, Daily, # 90 capsule, 3 Refills, Maintenance, 01/27/23 9:13:00 EDT, [facility], 161, cm, 10/28/22 13:31:00 EDT, [...] Date: 10/11/23 Status: Ordered Freestyle Ortiz 2 Revloc Freestyle Ortiz 2 Revloc, See Instructions, # 1 each, Refills 0, [...] capsule, 1 Refills, Maintenance, 09/05/23 6:39:00 EST, [facility], 90, TAKE 1 CAPSULE [...] 10:55:00 EDT Start Date: 02/21/20 Status: Ordered [place]-3 oral capsule 0 Refills, Maintenance, 09/13/23 15:32:00 [...] tablet, 1 Refills, Maintenance, 09/05/23 23:33:00 EST, [facility], 161, cm, 05/16/23 10:58:00 EDT, Height, 84.7, kg, 05/04/23 15:05:00 EDT, Dry Weight Start Date: 09/05/23 Status: Ordered Synthroid 0.05 mg oral tablet 1 tablet, By Mouth, Daily, TAKE 2TABLETS ON MONDAY, # 102 tablet, 1 Refills, Maintenance, 06/20/23 10:22:00 EST, [facility], 161, cm, 05/16/23 10:58:00 EDT, Height, 84.7, kg, 05/04/23 15:05:00 EDT, Dry Weight Start Date: 06/20/23 Status: Ordered timolol maleate 0.5% ophthalmic solution 1 drops, Eyes, Both, 2 times a day, # 10 mL, 0 Refills, Maintenance, 12/27/19 10:36:00 EDT, Solution Start Date: 12/27/19 Status: Ordered Vitamin D 16114 iu oral capsule 50,000 International_Units, By Mouth, [...] Team Personnel Name: Lucy Greenberg NP Position: [facility] PCO Associate Professional Member Role: PCP Address: Address: [address] [facility] [place] [address]- Care Team Related Persons Name: ALBA TATE Address: home [address] [place] [address]
--- OUTSIDE RECORDS SUMMARY | 2023-11-15 15:30 | XMS_ITS | Continuity of Care Document ---
Author Organization [facility] Riccardo Ordonez Lalit lt Address [address] [place] [address]- Care Team Providers Care Master Fire Control Technician Name Role Phone Dionicio ANTON, Lucy Yanez Primary Care Physician [facility] Date(s): 09/26/22 - 10/26/22 [facility] Riccardo Ordonez Adult [address] [place] [address]- Allergies, Adverse Reactions, Alerts Substance Reaction Severity [...] Refills, Maintenance, 09/03/22 19:13:00 EST, Tablet, [facility]/pharmacy #[id number], Partial fill upon patient request [...] 0 Refills, Maintenance, 09/08/22 10:27:00 EST, [facility], 161, cm, 08/30/22 14:54:00 EST, Height, 88.9, kg, 08/30/22 14:54:00 EST, Dry Weight Start Date: 09/08/22 Status: Ordered glipiZIDE 5 mg oral tablet 15 mg, 3, tablet, By Mouth, Daily, for 90 days, # 270 tablet, Refills 1, Tot. Refills 1, Hard Stop 03/01/23 11:56:00 EDT, 09/02/22 11:56:00 EST, Route to Pharmacy Electronically, [facility]/pharmacy #[id number], Partial fill upon patient request if the prescriptio... Start Date: 09/02/22 Stop Date: 03/01/23 Status: Ordered glipiZIDE 5 mg oral tablet 15 mg, 3, tablet, By Mouth, Daily, # 270 tablet, Refills 1, Tot. Refills 1, Maintenance, 03/01/23 11:56:00 EDT, Route to Pharmacy Electronically, [facility], Partial fill upon patient request if the prescription is for a schedul... Start Date: 03/01/23 Stop Date: 08/28/23 Status: Ordered hydrochlorothiazide-triamterene 25 mg-37.5 mg oral capsule 1 capsule, By Mouth, Daily, # 90 capsule, 1 Refills, Maintenance, 09/08/22 10:28:00 EST, [facility], 0, 1 capsule By Mouth Daily, 161, cm, 08/30/22 14:54:00 EST, Height, 88.9, kg, 08/30/22 14:54:00 EST, Dry Weight Start Date: 09/08/22 Status: Ordered levothyroxine 0.05 mg oral tablet See Instructions, TAKE 1 TABLET DAILY, TAKE 2 TABLETS ON MONDAY, # 102 tablet, 0 Refills, 09/08/22 10:27:00 EST, [facility], 161, cm, 08/30/22 14:54:00 EST, Height, 88.9, kg, 08/30/22 14:54:00 EST, Dry Weight Start Date: 09/08/22 Status: Ordered loratadine 10 mg oral tablet 1, tablet, By Mouth, Daily, # 90 tablet, Refills 1, Route to Pharmacy Electronically, [facility], 161.5, cm, 08/16/21 14:16:00 EST, Height Start Date: 09/03/21 Status: Ordered losartan 50 mg oral tablet 1 tablet, By Mouth, Daily, # 90 tablet, 3 Refills, 09/08/22 10:28:00 EST, [facility], 161, cm, 08/30/22 14:54:00 EST, Height, 88.9, kg, 08/30/22 14:54:00 EST, Dry Weight Start Date: 09/08/22 Status: Ordered Magnesium Magnesium, 0 Refills, Maintenance, 02/02/22 13:23:00 EDT Start Date: 02/02/22 Status: Ordered Multivitamin Daily, 0 Refills, Maintenance, 02/21/20 10:55:00 EDT Start Date: 02/21/20 Status: Ordered [place]-3 oral capsule See Instructions, one daily, 0 [...] 1 Refills, Maintenance, 09/08/22 10:29:00 EST, [facility], 161, cm, 08/30/22 14:54:00 EST, [...] Start Date: 02/02/22 Status: Ordered Vitamin D 35022 iu oral capsule 50,000 International_Units, By Mouth, [...] Associate Professional Member Role: PCP Address: Address: [address] [place] [address]- Care Team Related Persons Name: ALBA TATE Address: home [address] [place] [id number]
--- OUTSIDE RECORDS SUMMARY | 2023-11-15 15:30 | XMS_ITS | Continuity of Care Document ---
Author Organization [facility] Address [address] [place] [address]- Care Team Providers Care Kindergarten Instructional Assistant Name Role Phone Dionicio ANTON, Lucy Yanez Primary Care Physician Encounter [facility] Date(s): 05/20/21 - 06/19/[address] [address] Attending Physician: Damián Turcios Admitting Physician: AdmtrDamián Referring Physician: Admtr, Ar8 Allergies, Adverse Reactions, [...] 03/08/21 9:39:00 EDT, Route to Pharmacy Electronically, [facility]/pharmacy #[id number], 161.5, cm, 12/30/20 11:09:00 EDT, Height [...] Required Details Start Date: 05/06/19 Status: Ordered [place]-3 oral capsule See Instructions, one daily, 0 [...]
--- OUTSIDE RECORDS SUMMARY | 2023-11-15 15:30 | XMS_ITS | Continuity of Care Document ---
Author Organization [facility] José Luis Lalit lt Address [address] [place] [address]- Care Team Providers Care Barman Name Role Phone Dionicio ANTON, Lucy Yanez Primary Care Physician [phone] Encounter [facility] Date(s): 12/31/21 - 01/30/22 [facility] Riccardo Ordonez Adult [address] [place] [address]- Allergies, Adverse Reactions, Alerts Substance Reaction Severity [...] tablet, Refills 1, Route to Pharmacy Electronically, [facility], 161.5, cm, 08/16/21 14:16:00 EST, Height Start [...] Required Details Start Date: 05/06/19 Status: Ordered [place]-3 oral capsule See Instructions, one daily, 0 [...]
--- OUTSIDE RECORDS SUMMARY | 2023-11-15 15:30 | XMS_ITS | Continuity of Care Document ---
Author Organization [facility] Riccardo Ordonez Lalit lt Address [address] [place] [address]- Care Team Providers Care Electric Razor Assembler Name Role Phone Dionicio ANTON, Lucy Yanez Primary Care Physician [phone] Encounter [facility] Date(s): 07/29/22 - 08/28/22 [facility] Riccardo Ordonez Adult [address] [place] [address]- Allergies, Adverse Reactions, Alerts Substance Reaction Severity [...] 07/22/22 14:06:00 EST, Route to Pharmacy Electronically, [facility], Partial fill upon patient [...] tablet, 3 Refills, 10/11/21 11:14:00 EDT, [facility], 161.5, cm, 10/11/21 10:53:00 EDT, Height Start Date: 10/11/21 Status: Ordered loratadine 10 mg oral tablet 1, tablet, By Mouth, Daily, # 90 tablet, Refills 1, Route to Pharmacy Electronically, [facility], 161.5, cm, 08/16/21 14:16:00 EST, Height Start Date: 09/03/21 Status: Ordered LORazepam 0.5 mg oral tablet 1 tablet = 0.5 mg, By Mouth, Daily at bedtime, for 30 days, # 30 tablet, 2 Refills, Acute 10/17/22 8:19:00 EDT, 07/19/22 8:19:00 EST, [facility], 161.3, cm, 07/15/22 9:49:00 EST, Height, 88, kg, 02/02/22 13:19:00 EDT, Dry Weight Start Date: 07/19/22 Stop Date: 10/17/22 Status: Ordered losartan 50 mg oral tablet 1 tablet, By Mouth, Daily, # 90 tablet, 3 Refills, [facility], 161.5, cm, 11/11/21 12:28:00 EDT, Height Start Date: 01/19/22 Status: Ordered Magnesium Magnesium, 0 Refills, Maintenance, 02/02/22 13:23:00 EDT Start Date: 02/02/22 Status: Ordered Multivitamin Daily, 0 Refills, Maintenance, 02/21/20 10:55:00 EDT Start Date: 02/21/20 Status: Ordered Leonard-3 oral capsule See Instructions, one daily, 0 [...] Start Date: 02/02/22 Status: Ordered Vitamin D 74117 iu oral capsule 50,000 International_Units, By Mouth, [...] Professional Member Role: PCP Address: Address: [address] [place] [address]- Care Team Related Persons Name: ALBA TATE Address: home [address] [place] [address]
--- OUTSIDE RECORDS SUMMARY | 2023-11-15 15:30 | XMS_ITS | Continuity of Care Document ---
Author Organization [facility] Riccardo Ordonez Lalit lt Address [address] [place] [address]- Care Team Providers Care Payroll And Benefits Specialist Name Role Phone Dionicio ANTON, Lucy Yanez Primary Care Physician Encounter [facility] Date(s): 10/10/23 - 11/09/[address] [facility] Riccardo Ordonez Adult [address] [place] [address]- Allergies, Adverse Reactions, Alerts Substance Reaction Severity [...] (oldterm) 1 04/19/23 Recor ded SARS-CoV-2 mRNA (bacmryh-hmlz-beabv) vax 2 04/19/23 Recorded influenza virus vaccine, inactivated 04/05/22 Boyd rded influenza virus vaccine, inactivated 04/28/21 Give n influenza virus vaccine, inactivated 04/22/20 Give n influenza virus vaccine, inactivated 04/09/19 Boyd rded influenza virus vaccine, inactivated 03/28/18 Boyd rded [id number] bivalent booster vax 04/02/22 Recorded SARS-CoV-2 (COVID-19) mRNA-1273 vaccine 11/25/21 R ecorded SARS-CoV-2 (COVID-19) mRNA BNT-162b2 vac 04/22/21 Recorded SARS-CoV-2 (COVID-19) mRNA BNT-162b2 vac 09/09/20 Given SARS-CoV-2 (COVID-19) mRNA BNT-162b2 vac 08/19/20 Recorded zoster vaccine, inactivated 04/06/19 Recorded 1Result Comment: [facility] [place] 2Result Comment: [facility] [place] Medications Accu-Chek Paradise Glucose Meter See Instructions, [...] tablet, 1 Refills, Maintenance, 09/03/23 6:59:00 EST, [facility], 161, cm, 05/16/23 10:58:00 EDT, Height, 84.7, kg, 05/04/23 15:05:00 EDT, Dry Weight Start Date: 09/03/23 Status: Ordered esomeprazole 20 mg oral enteric coated capsule 1 capsule, By Mouth, Daily, # 90 capsule, 1 Refills, Maintenance, 11/09/23 21:34:00 EDT, [facility], [facility], cm, 09/19/23 7:29:00 EST, [...] Date: 10/11/23 Status: Ordered Freestyle Ortiz 2 [place] Freestyle Ortiz 2 [place], See Instructions, # 1 each, Refills 0, [...] capsule, 1 Refills, Maintenance, 09/05/23 6:39:00 EST, [facility], 90, TAKE 1 CAPSULE DAILY, 161, cm, 05/16/23 10:58:00 EDT, Height, 84.7, kg, 05/04/23 15:05:00 EDT, Dry Weight Start Date: 09/05/23 Status: Ordered Januvia 50 mg oral tablet 1 tablet = 50 mg, By Mouth, Daily, # 90 tablet, 2 Refills, Maintenance, 10/11/23 7:41:00 EDT, Tablet, [facility], Partial fill upon patient request [...] Stop 02/29/24 11:33:00 EDT, 09/02/23 11:33:00 EST, [facility], 161, cm, 02/22/23 11:03:00 EDT, [...] 10:55:00 EDT Start Date: 02/21/20 Status: Ordered [place]-3 oral capsule 0 Refills, Maintenance, 09/13/23 15:32:00 [...] tablet, 1 Refills, Maintenance, 09/05/23 23:33:00 EST, [facility], 161, cm, 05/16/23 10:58:00 EDT, Height, 84.7, kg, 05/04/23 15:05:00 EDT, Dry Weight Start Date: 09/05/23 Status: Ordered Synthroid 0.05 mg oral tablet 1 tablet, By Mouth, Daily, TAKE 2TABLETS ON MONDAY, # 102 tablet, 1 Refills, Maintenance, 11/09/23 21:33:00 EDT, [facility], 161, cm, 09/19/23 7:29:00 EST, Height, 82.7, kg, 09/13/23 14:43:00 EST, Dry Weight Start Date: 11/09/23 Status: Ordered timolol maleate 0.5% ophthalmic solution 1 drops, Eyes, Both, 2 times a day, # 10 mL, 0 Refills, Maintenance, 12/27/19 10:36:00 EDT, Solution Start Date: 12/27/19 Status: Ordered Vitamin D 07930 iu oral capsule 50,000 International_Units, By Mouth, [...] Team Personnel Name: Lucy Greenberg NP Position: [facility] Associate Professional Member Role: PCP Address: Address: [address] [place] [address]- Care Team Related Persons Name: ALBA TATE Address: home [address] [place] [address]
--- OUTSIDE RECORDS SUMMARY | 2023-11-15 15:30 | XMS_ITS | Continuity of Care Document ---
Author Organization [facility] José Luis Lalit lt Address [address] [place] [address]- Care Team Providers Care Staple Cutter Name Role Phone Dionicio ANTON, Lucy Yanez Primary Care Physician En[place] [facility] Date(s): 04/28/21 - 05/05/21 [facility] Adult [address] [place] [address]- Attending Physician: Noah Dobbins MD Allergies, Adverse Reactions, Alerts Substance Reaction [...] 03/08/21 9:39:00 EDT, Route to Pharmacy Electronically, [facility]/pharmacy #[id number], 161.5, cm, 12/30/20 11:09:00 EDT, [...] Required Details Start Date: 05/06/19 Status: Ordered [place]-3 oral capsule See Instructions, one daily, 0 [...]
--- OUTSIDE RECORDS SUMMARY | 2023-11-15 15:30 | XMS_ITS | Continuity of Care Document ---
Author Organization [facility] Address [address], [address] [place] [address]- Care Team Providers Care Furnace Maintenance Name Role Phone Dionicio ANTON, Lucy Yanez Primary Care Physician Encounter [facility] [id number] Date(s): 02/02/22 - 04/14/22 [facility] [address] [place], [place] [address] Attending Physician: Jenny Gillespie MD Admitting Physician: Jenny Gillespie MD Referring Physician: Dionicio ANTON, Lucy Yanez Allergies, Adverse Reactions, Alerts Substance Reaction Severity Status cefuroxime Active beta blockers Active Macrobid 1, 2 Active ALVARO inhibitors muscle pain Active metFORMIN Diarrhea Active Latex rash Active 1Reports Macrobid causes [...] tablet, Refills 1, Route to Pharmacy Electronically, [facility], 161.5, cm, 08/16/21 14:16:00 EST, Height Start [...] EDT Start Date: 02/21/20 Status: Ordered [place]-3 oral capsule See Instructions, one daily, 0 [...] Start Date: 02/02/22 Status: Ordered Vitamin D 35252 iu oral capsule 50,000 International_Units, By Mouth, [...] Personnel Name: Lucy Greenberg NP Address: Address: [address] [place] [id number]
--- OUTSIDE RECORDS SUMMARY | 2023-11-15 15:30 | XMS_ITS | Continuity of Care Document ---
Author Organization [facility] Riccardo Ordonez Lalit lt Address [address] [place] [address]- Care Team Providers Care Insurance Sales Associate Name Role Phone Dionicio ANTON, Lucy Yanez Primary Care Physician [place] [facility] [place] Date(s): 06/21/23 - 07/21/23 [facility] Riccardo Ordonez Adult [address] [place] [address]- Allergies, Adverse Reactions, Alerts Substance Reaction Severity [...] (oldterm) 1 04/19/23 Recor ded SARS-CoV-2 mRNA (anlmxug-rfis-ipmhy) vax 2 04/19/23 Recorded influenza virus vaccine, inactivated 04/05/22 Boyd rded influenza virus vaccine, inactivated 04/28/21 Give n influenza virus vaccine, inactivated 04/22/20 Give n influenza virus vaccine, inactivated 04/09/19 Boyd rded influenza virus vaccine, inactivated 03/28/18 Boyd rded [id number] bivalent booster vax 04/02/22 Recorded SARS-CoV-2 (COVID-19) mRNA-1273 vaccine 11/25/21 R ecorded SARS-CoV-2 (COVID-19) mRNA BNT-162b2 vac 04/22/21 Recorded SARS-CoV-2 (COVID-19) mRNA BNT-162b2 vac 09/09/20 Given SARS-CoV-2 (COVID-19) mRNA BNT-162b2 vac 08/19/20 Recorded zoster vaccine, inactivated 04/06/19 Recorded 1Result Comment: [facility] [place] 2Result Comment: [facility] [place] Medications Accu-Chek Paradise Glucose Meter See Instructions, [...] Refills, Maintenance, 04/09/23 17:21:00 EDT, [facility], 161, cm, 02/22/23 11:03:00 EDT, Height, 86.9, kg, 10/28/22 13:31:00 EDT, Dry Weight Start Date: 04/09/23 Status: Ordered esomeprazole 20 mg oral enteric coated capsule 1 capsule, By Mouth, Daily, # 90 capsule, 3 Refills, Maintenance, 01/27/23 9:13:00 EDT, [facility], 161, cm, 10/28/22 13:31:00 EDT, Height, 86.9, kg, 10/28/22 13:31:00 EDT, DryWeight Start Date: 01/27/23 Status: Ordered GlipiZIDE XL 10 mg oral tablet, extended release 2 tablet = 20 mg, By Mouth, Daily, # 180 tablet, 3 Refills, Maintenance, 06/22/23 6:47:00 EST, [facility], Partial fill upon patient request if the prescription is for a schedule II opioid drug., 161, cm, 05/16/23 10:58:00 EDT,... Start Date: 06/22/23 Status: Ordered hydrochlorothiazide-triamterene 25 mg-37.5 mg oral capsule 1 capsule, By Mouth, Daily, # 90 capsule, 1 Refills, Maintenance, 04/06/23 8:40:00 EDT, [facility], 90, TAKE 1 [...] 09/02/23 11:33:00 EST, [facility], 161, cm, 02/22/23 11:03:00 EDT, [...] Start Date: 12/27/19 Status: Ordered Vitamin D 52145 iu oral capsule 50,000 International_Units, By Mouth, [...] Associate Professional Member Role: PCP Address: Address: [address] [place] [address]- Care Team Related Persons Name: ALBA TATE Address: [address] [place] [address]
--- OUTSIDE RECORDS SUMMARY | 2023-11-15 15:30 | XMS_ITS | Continuity of Care Document ---
Author Organization [facility] Riccardo Ordonez Lalit lt Address [address] [place] [address]- Care Team Providers Care Community Health Nurse Staff Name Role Phone Dionicio ANTON, Lucy Yanez Primary Care Physician Encounter [facility] Date(s): 12/15/22 - 01/14/23 [facility] Riccardo Ordonez Adult [address] [place] [address]- Allergies, Adverse Reactions, Alerts Substance Reaction Severity [...] tablet, 0 Refills, Maintenance, 10/31/22 11:47:00 EDT, [facility], 161, cm, 10/28/22 13:31:00 EDT, Height, 86.9, [...] capsule, 0 Refills, Maintenance, 12/01/22 16:17:00 EDT, [facility], 161, cm, 10/28/22 13:31:00 EDT, Height, 86.9, kg, 10/28/22 13:31:00 EDT, Dry Weight Start Date: 12/01/22 Status: Ordered glipiZIDE 10 mg oral tablet, extended release 1 tablet = 10 mg, By Mouth, Daily, # 90 tablet, 1 Refills, Maintenance, 12/02/22 14:40:00 EDT, [facility], Partial fill upon patient request if the prescription is for a schedule II opioid drug., 161, cm, 10/28/22 13:31:00 EDT,... Start Date: 12/02/22 Status: Ordered hydrochlorothiazide-triamterene 25 mg-37.5 mg oral capsule 1 capsule, By Mouth, Daily, # 90 capsule, 1 Refills, Maintenance, 09/08/22 10:28:00 EST, [facility], 0, 1 capsule By Mouth Daily, 161, cm, 08/30/22 14:54:00 EST, Height, 88.9, kg, 08/30/22 14:54:00 EST, Dry Weight Start Date: 09/08/22 Status: Ordered levothyroxine 0.05 mg oral tablet See Instructions, TAKE 1 TABLET DAILY, TAKE 2 TABLETS ON MONDAY, # 102 tablet, 0 Refills, Maintenance, 12/01/22 16:17:00 EDT, [facility], 161, cm, 10/28/22 13:31:00 EDT, Height, 86.9, kg, 10/28/22 13:31:00 EDT, Dry Weight Start Date: 12/01/22 Status: Ordered loratadine 10 mg oral tablet 1, tablet, By Mouth, Daily, # 90 tablet, Refills 1, Route to Pharmacy Electronically, [facility]809, 161.5, cm, 08/16/21 14:16:00 EST, Height Start Date: 09/03/21 Status: Ordered losartan 50 mg oral tablet 1 tablet, By Mouth, Daily, # 90 tablet, 3 Refills, 09/08/22 10:28:00 EST, [facility], 161, cm, 08/30/22 14:54:00 EST, Height, 88.9, kg, 08/30/22 14:54:00 EST, Dry Weight Start Date: 09/08/22 Status: Ordered Magnesium Magnesium, 0 Refills, Maintenance, 02/02/22 13:23:00 EDT Start Date: 02/02/22 Status: Ordered Multivitamin Daily, 0 Refills, Maintenance, 02/21/20 10:55:00 EDT Start Date: 02/21/20 Status: Ordered [place]-3 oral capsule See Instructions, one daily, 0 [...] 1 Refills, Maintenance, 09/08/22 10:29:00 EST, [facility], 161, cm, [...] Start Date: 02/02/22 Status: Ordered Vitamin D 54806 iu oral capsule 50,000 International_Units, By Mouth, [...] Associate Professional Member Role: PCP Address: Address: [address] [place] [address]- Care Team Related Persons Name: ALBA TATE Address: [address] [place] [address]
--- OUTSIDE RECORDS SUMMARY | 2023-11-15 15:30 | XMS_ITS | Continuity of Care Document ---
Author Organization [facility] José Luis Lalit lt Address [address] [place] [address]- Care Team Providers Care Audio Visual Design Engineer Name Role Phone Dionicio ANTON, Lucy Yanez Primary Care Physician En[facility] [place] Date(s): 10/12/21 - 11/11/21 [facility] Riccardo Ordonez Adult [address] [place] [address]- Allergies, Adverse Reactions, Alerts Substance Reaction Severity [...] tablet, Refills 1, Route to Pharmacy Electronically, [facility] 413[facility], 161.5, cm, 08/16/21 14:16:00 EST, Height Start Date: 09/03/21 Status: Ordered losartan 50 mg oral tablet 50 mg, 1, tablet, By Mouth, Daily, # 90 tablet, Refills 3, Tot. Refills 3, Maintenance, 12/30/20 11:48:00 EDT, Route to Pharmacy Electronically, [facility], 161.5, cm, 12/30/20 11:09:00 EDT, Height Start Date: 12/30/20 Status: Ordered Multivitamin Daily, 0 Refills, Maintenance, 02/21/20 10:55:00 EDT Start Date: 02/21/20 Status: Ordered Nexium 20 mg oral enteric coated capsule 1 capsule = 20 mg, By Mouth, Daily, # 90 capsule, 1 Refills, Maintenance, 09/13/21 9:37:00 EST, EC Capsule, [facility], Partial fill upon patient request if the prescription is fora schedule II opioid drug., 161.5, cm, 09/13/21 8:5... Start Date: 09/13/21 Status: Ordered Nexium Capsule See Instructions, 22 mg 1 every other day, Refills 0, Maintenance, 05/06/19 16:33:27 EDT, Instructions Replace Required Details Start Date: 05/06/19 Status: Ordered Greig-3 oral capsule See Instructions, one daily, 0 [...]
--- OUTSIDE RECORDS SUMMARY | 2023-11-15 15:30 | XMS_ITS | Continuity of Care Document ---
Author Organization [facility] Riccardo Ordonez Lalit lt Address [address] [place] [address]- Care Team Providers Care Administrative Services Specialist Name Role Phone Dionicio ANTON, Lucy Yanez Primary Care Physician [facility]counter [facility] Date(s): 09/25/23 - 10/25/23 [facility] Riccardo Ordonez Adult [address] [place] [address]- Allergies, Adverse Reactions, Alerts Substance Reaction Severity [...] (oldterm) 1 04/19/23 Recor ded SARS-CoV-2 mRNA (oyegboz-xeth-baryf) vax 2 04/19/23 Recorded influenza virus vaccine, inactivated 04/05/22 Boyd rded influenza virus vaccine, inactivated 04/28/21 Give n influenza virus vaccine, inactivated 04/22/20 Give n influenza virus vaccine, inactivated 04/09/19 Boyd rded influenza virus vaccine, inactivated 03/28/18 Boyd rded [id number] bivalent booster vax 04/02/22 Recorded SARS-CoV-2 (COVID-19) mRNA-1273 vaccine 11/25/21 R ecorded SARS-CoV-2 (COVID-19) mRNA BNT-162b2 vac 04/22/21 Recorded SARS-CoV-2 (COVID-19) mRNA BNT-162b2 vac 09/09/20 Given SARS-CoV-2 (COVID-19) mRNA BNT-162b2 vac 08/19/20 Recorded zoster vaccine, inactivated 04/06/19 Recorded 1Result Comment: [facility] in [place] 2Result Comment: [facility] [place] Medications Accu-Chek [place] Glucose Meter See Instructions, [...] tablet, 1 Refills, Maintenance, 09/03/23 6:59:00 EST, [facility], 161, cm, 05/16/23 10:58:00 EDT, Height, 84.7, kg, 05/04/23 15:05:00 EDT, Dry Weight Start Date: 09/03/23 Status: Ordered esomeprazole 20 mg oral enteric coated capsule 1 capsule, By Mouth, Daily, # 90 capsule, 3 Refills, Maintenance, 01/27/23 9:13:00 EDT, [facility], 161, cm, 10/28/22 13:31:00 [...] Date: 10/11/23 Status: Ordered Freestyle Ortiz 2 [place] Freestyle Ortiz 2 [place], See Instructions, # 1 each, Refills 0, [...] capsule, 1 Refills, Maintenance, 09/05/23 6:39:00 EST, [facility], 90, TAKE 1 CAPSULE DAILY, 161, cm, 05/16/23 10:58:00 EDT, Height, 84.7, kg, 05/04/23 15:05:00 EDT, Dry Weight Start Date: 09/05/23 Status: Ordered Januvia 50 mg oral tablet 1 tablet = 50 mg, By Mouth, Daily, # 90 tablet, 2 Refills, Maintenance, 10/11/23 7:41:00 EDT, Tablet, [facility], Partial fill upon patient request [...] 02/29/24 11:33:00 EDT, 09/02/23 11:33:00 EST, [facility], 161, cm, 02/22/23 11:03:00 EDT, [...] 10:55:00 EDT Start Date: 02/21/20 Status: Ordered [place]-3 oral capsule 0 Refills, Maintenance, 09/13/23 15:32:00 [...] tablet, 1 Refills, Maintenance, 09/05/23 23:33:00 EST, [facility], 161, cm, 05/16/23 10:58:00 EDT, Height, 84.7, kg, 05/04/23 15:05:00 EDT, Dry Weight Start Date: 09/05/23 Status: Ordered Synthroid 0.05 mg oral tablet 1 tablet, By Mouth, Daily, TAKE 2TABLETS ON MONDAY, # 102 tablet, 1 Refills, Maintenance, 06/20/23 10:22:00 EST, [facility], 161, cm, 05/16/23 10:58:00 EDT, Height, 84.7, kg, 05/04/23 15:05:00 EDT, Dry Weight Start Date: 06/20/23 Status: Ordered timolol maleate 0.5% ophthalmic solution 1 drops, Eyes, Both, 2 times a day, # 10 mL, 0 Refills, Maintenance, 12/27/19 10:36:00 EDT, Solution Start Date: 12/27/19 Status: Ordered Vitamin D 23499 iu oral capsule 50,000 International_Units, By Mouth, [...] Team Personnel Name: Lucy Greenberg NP Position: [facility] Associate Professional Member Role: PCP Address: Address: [address] [facility] [place] [address]- Care Team Related Persons Name: ALBA TATE Address: home [address] [place] [address]
--- OUTSIDE RECORDS SUMMARY | 2023-11-15 15:30 | XMS_ITS | Continuity of Care Document ---
Author Organization [facility] Address [address] [place] [address]- Care Team Providers Care Baggage Security Checker Name Role Phone Dionicio ANTON, Lucy Yanez Primary Care Physician [place] [facility] [place](s): 08/03/22 - 09/02/22 [facility] [address] [place], [place] [address] Attending Physician: Damián Turcios Admitting Physician: AdmtrDamián [...] 09/02/22 11:56:00 EST, Route to Pharmacy Electronically, [facility]/pharmacy #[id number], Partial fill upon patient requestif the prescription is for a schedule II opioid kraig... Start Date: 09/02/22 Stop Date: 03/01/23 Status: Ordered hydrochlorothiazide-triamterene 25 mg-37.5 mg oral capsule 1 capsule, By Mouth, Daily, # 90 capsule, 1 Refills, Maintenance, 09/02/22 11:55:00 EST, [facility]/pharmacy #[id number], 0, 1 capsule By Mouth Daily, [...] tablet, Refills 1, Route to Pharmacy Electronically, [facility], 161.5, cm, 08/16/21 14:16:00 EST, Height Start [...] 10:55:00 EDT Start Date: 02/21/20 Status: Ordered [place]-3 oral capsule See Instructions, one daily, [...] Start Date: 02/02/22 Status: Ordered Vitamin D 45805 iu oral capsule 50,000 International_Units, By Mouth, [...] Personnel Name: Dionicio ANTON, Lucy Yanez Position: [facility] Associate Professional Member Role: PCP Address: Address: [address] [place] [address]- Care Team Related Persons Name: ALBA TATE Address: [address] [place] [address]
--- OUTSIDE RECORDS SUMMARY | 2023-11-15 15:30 | XMS_ITS | Continuity of Care Document ---
Author Organization [facility] Riccardo Ordonez Lalit lt Address [address] [place] [address]- Care Team Providers Care Insurance Verification Rep Name Role Phone Dionicio ANTON, Lucy Yanez Primary Care Physician [facility] Date(s): 07/29/22 - 08/28/22 [facility] Riccardo Ordonez Adult [address] [place] [address]- Allergies, Adverse Reactions, Alerts Substance Reaction Severity [...] 07/22/22 14:06:00 EST, Route to Pharmacy Electronically, [facility], Partial fill upon patient request [...] tablet, 3 Refills, 10/11/21 11:14:00 EDT, [facility], 161.5, cm, 10/11/21 10:53:00 EDT, Height Start Date: 10/11/21 Status: Ordered loratadine 10 mg oral tablet 1, tablet, By Mouth, Daily, # 90 tablet, Refills 1, Route to Pharmacy Electronically, [facility], 161.5, cm, 08/16/21 14:16:00 EST, Height Start Date: 09/03/21 Status: Ordered LORazepam 0.5 mg oral tablet 1 tablet = 0.5 mg, By Mouth, Daily at bedtime, for 30 days, # 30 tablet, 2 Refills, Acute 10/17/22 8:19:00 EDT, 07/19/22 8:19:00 EST, [facility], 161.3, cm, 07/15/22 9:49:00 EST, Height, 88, kg, 02/02/22 13:19:00 EDT, Dry Weight Start Date: 07/19/22 Stop Date: 10/17/22 Status: Ordered losartan 50 mg oral tablet 1 tablet, By Mouth, Daily, # 90 tablet, 3 Refills, [facility], 161.5, cm, 11/11/21 12:28:00 EDT, Height Start Date: 01/19/22 Status: Ordered Magnesium Magnesium, 0 Refills, Maintenance, 02/02/22 13:23:00 EDT Start Date: 02/02/22 Status: Ordered Multivitamin Daily, 0 Refills, Maintenance, 02/21/20 10:55:00 EDT Start Date: 02/21/20 Status: Ordered [place]-3 oral capsule See Instructions, one daily, 0 [...] Start Date: 02/02/22 Status: Ordered Vitamin D 74829 iu oral capsule 50,000 International_Units, By Mouth, [...] Personnel Name: Dionicio ANTON, Lucy Yanez Position: [facility] PCO Associate Professional Member Role: PCP Address: Address: [address] [place] [address]- Care Team Related Persons Name: ALBA TATE Address: [address] [place] [address]
--- OUTSIDE RECORDS SUMMARY | 2023-11-15 15:30 | XMS_ITS | Continuity of Care Document ---
Author Organization [facility] Riccardo Ordonez Lalit lt Address [address] [place] [address]- Care Team Providers Care Dry Plasterer Helper Name Role Phone Dionicio ANTON, Lucy Yanez Primary Care Physician [facility] Date(s): 09/05/23 - 10/05/23 [facility] Riccardo Ordonez Adult [address] [place] [address]- Allergies, Adverse Reactions, Alerts Substance Reaction Severity [...] (oldterm) 1 04/19/23 Recor ded SARS-CoV-2 mRNA (hftqxma-bpnl-fitei) vax 2 04/19/23 Recorded influenza virus vaccine, inactivated 04/05/22 Boyd rded influenza virus vaccine, inactivated 04/28/21 Give n influenza virus vaccine, inactivated 04/22/20 Give n influenza virus vaccine, inactivated 04/09/19 Boyd rded influenza virus vaccine, inactivated 03/28/18 Boyd rded [id number] bivalent booster vax 04/02/22 Recorded SARS-CoV-2 (COVID-19) mRNA-1273 vaccine 11/25/21 R ecorded SARS-CoV-2 (COVID-19) mRNA BNT-162b2 vac 04/22/21 Recorded SARS-CoV-2 (COVID-19) mRNA BNT-162b2 vac 09/09/20 Given SARS-CoV-2 (COVID-19) mRNA BNT-162b2 vac 08/19/20 Recorded zoster vaccine, inactivated 04/06/19 Recorded 1Result Comment: [facility] in [place] 2Result Comment: [facility] in [place] Medications Accu-Chek Paradise Glucose Meter See Instructions, [...] tablet, 1 Refills, Maintenance, 09/03/23 6:59:00 EST, [facility], 161, cm, 05/16/23 10:58:00 EDT, Height, 84.7, kg, 05/04/23 15:05:00 EDT, Dry Weight Start Date: 09/03/23 Status: Ordered esomeprazole 20 mg oral enteric coated capsule 1 capsule, By Mouth, Daily, # 90 capsule, 3 Refills, Maintenance, 01/27/23 9:13:00 EDT, [facility], 161, cm, 10/28/22 13:31:00 [...] Date: 09/19/23 Status: Ordered Freestyle [place] 2 [place] Freestyle [place]iz 2 [place], See Instructions, # 1 each, Refills 0, [...] capsule, 1 Refills, Maintenance, 09/05/23 6:39:00 EST, [facility], 90, TAKE 1 CAPSULE DAILY, 161, cm, 05/16/23 10:58:00 EDT, Height, 84.7, kg, 05/04/23 15:05:00 EDT, Dry Weight Start Date: 09/05/23 Status: Ordered Januvia 50 mg oral tablet 1 tablet = 50 mg, By Mouth, Daily, # 30 tablet, 0 Refills, Maintenance, 09/27/23 12:50:00 EDT, Tablet, [facility]/pharmacy #[id number], Partial fill upon patient [...] Stop 02/29/24 11:33:00 EDT, 09/02/23 11:33:00 EST, [facility], 161, cm, 02/22/23 11:03:00 [...] 10:55:00 EDT Start Date: 02/21/20 Status: Ordered [place]-3 oral capsule 0 Refills, Maintenance, 09/13/23 15:32:00 [...] tablet, 1 Refills, Maintenance, 09/05/23 23:33:00 EST, [facility], 161, cm, 05/16/23 10:58:00 EDT, Height, 84.7, kg, 05/04/23 15:05:00 EDT, Dry Weight Start Date: 09/05/23 Status: Ordered Synthroid 0.05 mg oral tablet 1 tablet, By Mouth, Daily, TAKE 2TABLETS ON MONDAY, # 102 tablet, 1 Refills, Maintenance, 06/20/23 10:22:00 EST, [facility], 161, cm, 05/16/23 10:58:00 EDT, Height, 84.7, kg, 05/04/23 15:05:00 EDT, Dry Weight Start Date: 06/20/23 Status: Ordered timolol maleate 0.5% ophthalmic solution 1 drops, Eyes, Both, 2 times a day, # 10 mL, 0 Refills, Maintenance, 12/27/19 10:36:00 EDT, Solution Start Date: 12/27/19 Status: Ordered Vitamin D 13918 iu oral capsule 50,000 International_Units, By Mouth, [...] Professional Member Role: PCP Address: Address: [address] [place] [address]- Care Team Related Persons Name: ALBA TATE Address: home [address] [place] [address]
--- OUTSIDE RECORDS SUMMARY | 2023-11-15 15:30 | XMS_ITS | Continuity of Care Document ---
Author Organization [facility] Riccardo Ordonez Lalit lt Address [address] [place] [address]- Care Team Providers Care Health Diagnostics Teacher Name Role Phone Dionicio ANTON, Lucy Yanez Primary Care Physician [phone] [place] [facility] [place](s): 02/10/20 - 03/11/20 [facility] Adult [address] [place] [address]- [facility] Allergies, Adverse Reactions, Alerts Substance Reaction Severity Status Latex rash Active ALVARO inhibitors muscle pain Active Medications aspirin 81 mg oral delayed release [...] 3 Refills, Maintenance, 01/14/20 11:32:00 EDT, [facility], 161.5, cm, 01/07/20 15:02:00 EDT, Height Start Date: 01/14/20 Status: Ordered Multivitamin Daily, 0 Refills, Maintenance, 02/21/20 10:55:00 EDT Start Date: 02/21/20 Status: Ordered Nexium Capsule See Instructions, 22 mg 1 every other day, Refills 0, Maintenance, 05/06/19 16:33:27 EDT, Instructions Replace Required Details Start Date: 05/06/19 Status: Ordered [place]-3 oral capsule See Instructions, one daily, 0 [...]
--- OUTSIDE RECORDS SUMMARY | 2023-11-15 15:30 | XMS_ITS | Continuity of Care Document ---
Author Organization [facility] Riccardo Ordonez Lalit lt Address [address] [place] [address]- Care Team Providers Care Sccm Administrator Name Role Phone Dionicio ANTON, Lucy Yanez Primary Care Physician Encounter [facility] [place] Date(s): 01/19/22 - 02/18/22 [facility] Riccardo Ordonez Adult [address] [place] [address]- Allergies, Adverse Reactions, Alerts Substance Reaction Severity [...] 1, Route to Pharmacy Electronically, [facility], 161.5, cm, 08/16/21 14:16:00 EST, Height Start [...] 10:55:00 EDT Start Date: 02/21/20 Status: Ordered [place]-3 oral capsule See Instructions, one daily, 0 [...] Start Date: 02/02/22 Status: Ordered Vitamin D 76345 iu oral capsule 50,000 International_Units, By Mouth, [...]
--- OUTSIDE RECORDS SUMMARY | 2023-11-15 15:30 | XMS_ITS | Continuity of Care Document ---
[facility] Address [address], [address] [place] [address]- Care Team Providers Care Skin Installer Name Role Phone Dionicio ANTON, Lucy Yanez Primary Care Physician [phone] Encounter [facility] Date(s): 02/18/22 - 03/20/22 [facility] Leisa Mcghees [facility] [address], [address] [place] [address]- Allergies, Adverse Reactions, Alerts Substance Reaction Severity [...] tablet, Refills 1, Route to Pharmacy Electronically, [facility], 161.5, cm, 08/16/21 14:16:00 EST, Height Start [...] 10:55:00 EDT Start Date: 02/21/20 Status: Ordered [place]-3 oral capsule See Instructions, one daily, 0 [...] Start Date: 02/02/22 Status: Ordered Vitamin D 21540 iu oral capsule 50,000 International_Units, By Mouth, [...] Personnel Name: Lucy Greenberg NP Address: [address] [place], [place] [address]
--- OUTSIDE RECORDS SUMMARY | 2023-11-15 15:30 | XMS_ITS | Continuity of Care Document ---
Author Organization [facility] José Luis Lalit lt Address [address] [place] [address]- Care Team Providers Care Aegis Console Operator Track Name Role Phone Dionicio ANTON, Lucy Yanez Primary Care Physician [facility] Date(s): 04/26/23 - 05/26/23 [facility] José Luis Adult [address] [place] [address]- Allergies, Adverse Reactions, Alerts Substance Reaction Severity [...] (oldterm) 1 04/19/23 Recor ded SARS-CoV-2 mRNA (kyyzzvr-icnu-npsot) vax 2 04/19/23 Recorded influenza virus vaccine, inactivated 04/05/22 Boyd rded influenza virus vaccine, inactivated 04/28/21 Give n influenza virus vaccine, inactivated 04/22/20 Give n influenza virus vaccine, inactivated 04/09/19 Boyd rded influenza virus vaccine, inactivated 03/28/18 Boyd rded [id number] bivalent booster vax 04/02/22 Recorded SARS-CoV-2 (COVID-19) mRNA-1273 vaccine 11/25/21 R ecorded SARS-CoV-2 (COVID-19) mRNA BNT-162b2 vac 04/22/21 Recorded SARS-CoV-2 (COVID-19) mRNA BNT-162b2 vac 09/09/20 Given SARS-CoV-2 (COVID-19) mRNA BNT-162b2 vac 08/19/20 Recorded zoster vaccine, inactivated 04/06/19 Recorded 1Result Comment: [facility] in [place] 2Result Comment: [facility] in [place] Medications Accu-Chek [place] Glucose Meter See Instructions, [...] tablet, 1 Refills, Maintenance, 04/09/23 17:21:00 EDT, [facility], 161, cm, 02/22/23 11:03:00 EDT, Height, 86.9, kg, 10/28/22 13:31:00 EDT, Dry Weight Start Date: 04/09/23 Status: Ordered esomeprazole 20 mg oral enteric coated capsule 1 capsule, By Mouth, Daily, # 90 capsule, 3 Refills, Maintenance, 01/27/23 9:13:00 EDT, Pharmacy, 161, cm, 10/28/22 13:31:00 EDT, Height, 86.9, kg, 10/28/22 13:31:00 EDT, DryWeight Start Date: 01/27/23 Status: Ordered GlipiZIDE XL 10 mg oral tablet, extended release 2 tablet = 20 mg, By Mouth, Daily, # 180 tablet, 1 Refills, Maintenance, 02/16/23 6:50:00 EDT, Pharmacy, Partial fill upon patient request if the prescription is for a schedule II opioid drug., 161, cm, 02/07/23 11:15:00 EDT,... Start Date: 02/16/23 Status: Ordered hydrochlorothiazide-triamterene 25 mg-37.5 mg oral capsule 1 capsule, By Mouth, Daily, # 90 capsule, 1 Refills, Maintenance, 04/06/23 8:40:00 EDT, [facility], 90, TAKE 1 [...] Acute 07/20/23 6:50:00 EST, 04/21/23 6:50:00 EDT, Pharmacy, 161, cm, 02/22/23 11:03:00 EDT, Height, 86.9, kg, 10/28/22 13:31:00 EDT, Dry Weight Start Date: 04/21/23 Stop Date: 07/20/23 Status: Ordered losartan 50 mg oral tablet 1 tablet, By Mouth, Daily, for 90 days, # 90 tablet, 1 Refills, Physician Stop 02/29/24 11:33:00 EDT, 09/02/23 11:33:00 EST, Pharmacy, 161, cm, 02/22/23 11:03:00 EDT, Height,86.9, [...] Start Date: 12/27/19 Status: Ordered Vitamin D 41863 iu oral capsule 50,000 International_Units, By Mouth, [...] Associate Professional Member Role: PCP Address: Address: [address] [place] [address]- Care Team Related Persons Name: ALBA TATE Address: home [address] [place] [address]
--- OUTSIDE RECORDS SUMMARY | 2023-11-15 15:30 | XMS_ITS | Continuity of Care Document ---
Author Organization [facility] José Luis Lalit lt Address [address] [place] [address]- Care Team Providers Care Zigzag Elastic Attacher Name Role Phone Dionicio ANTON, Lucy Yanez Primary Care Physician Encounter [facility] Date(s): 09/13/21 - 09/20/21 [facility] Adult [address] [place] [address]- Encounter Diagnosis Type II diabetes mellitus(Discharge Diagnosis) - 09/13/21 Dysuria(Discharge Diagnosis) - 09/13/21 Attending Physician: Lucy Greenberg NP Allergies, Adverse [...] days, # 14 tablet, 0 Refills, Acute 09/23/21 8:36:00 EST, 09/16/21 8:36:00 EST, [facility]/pharmacy #[id number], Partial fill upon patient request if the prescription is for a schedule II opioid drug., 161.5, cm,... Start Date: 09/16/21 Stop Date: 09/23/21 Status: Ordered Crestor 10 mg oral tablet 1 tablet = 10 mg, By Mouth, Daily, # 90 tablet, 3 Refills, Maintenance, 12/30/20 11:48:00 EDT, Tablet, [facility], 161.5, cm, 12/30/20 11:09:00 EDT, Height Start Date: 12/30/20 Status: Ordered glipiZIDE 5 mg oral tablet, extended release 1 tablet = 5 mg, By Mouth, Daily, # 90 tablet, 1 Refills, Maintenance, 09/13/21 9:31:00 EST, ER Tablet, Partial fill upon patient request if the prescription is for a schedule II opioid drug. Start Date: 09/13/21 Status: Ordered hydrochlorothiazide-triamterene 25 mg-37.5 mg oral [...] tablet, Refills 1, Route to Pharmacy Electronically, [facility], 161.5, cm, 08/16/21 14:16:00 EST, Height Start [...] Required Details Start Date: 05/06/19 Status: Ordered [place]-3 oral capsule See Instructions, one daily, 0 [...] Informant Type II diabetes mellitus Discharge Diagnosis 09/13/21 Dysuria Discharge Diagnosis 09/13/21 Vital Signs Most recent to oldest [Reference Range]: 1 Height 161.5 cm (09/13/21 8:59 AM) Social History Social History Type Response Smoking Status Former smoker, quit more than 30 days ago entered on: 05/16/19 Sex
--- OUTSIDE RECORDS SUMMARY | 2023-11-15 15:30 | XMS_ITS | Continuity of Care Document ---
Author Organization [facility] Address [address] [address]- Care Team Providers Care Senior Estimator Name Role Phone Dionicio ANTON, Lucy Yanez Primary Care Physician Encounter [facility] Date(s): 12/07/22 - 12/14/22 [facility] [address] [address]- Attending Physician: Lucy Greenberg NP Admitting Physician: Lucy Greenberg NP Referring Physician: Dionicio ANTON, Lucy Yanez Allergies, [...] 10/31/22 11:47:00 EDT, [facility], 161, cm, 10/28/22 13:31:00 EDT, Height, 86.9, [...] capsule, 0 Refills, Maintenance, 12/01/22 16:17:00 EDT, [facility], 161, cm, 10/28/22 13:31:00 EDT, Height, 86.9, [...] tablet, 0 Refills, Maintenance, 12/01/22 16:17:00 EDT, [facility] 13251, 161, cm, 10/28/22 13:31:00 EDT, Height, 86.9, kg, 10/28/22 13:31:00 EDT, Dry Weight Start Date: 12/01/22 Status: Ordered loratadine 10 mg oral tablet 1, tablet, By Mouth, Daily, # 90 tablet, Refills 1, Route to Pharmacy Electronically, [facility] 48141, 161.5, cm, 08/16/21 14:16:00 EST, Height Start [...] 10:55:00 EDT Start Date: 02/21/20 Status: Ordered [place]-3 oral capsule See Instructions, one daily, 0 [...] Maintenance, 09/08/22 10:29:00 EST, [facility], 161, cm, 08/30/22 14:54:00 [...] Start Date: 02/02/22 Status: Ordered Vitamin D 40503 iu oral capsule 50,000 International_Units, By Mouth, [...] Associate Professional Member Role: PCP Address: Address: [address] [place] [address]- Care Team Related Persons Name: ALBA TATE Address: home [address] [place] [address]
--- OUTSIDE RECORDS SUMMARY | 2023-11-15 15:30 | XMS_ITS | Continuity of Care Document ---
Author [facility] Address [address], [address] [place] [address]- Care Team Providers Care Vp Lab Name Role Phone Dionicio ANTON, Lucy Yanez Primary Care Physician [phone] Encounter [facility] Date(s): 03/17/22 - 04/16/22 [facility] Leisa Mcghees [facility] [address], [address] [place] [address]- Allergies, Adverse Reactions, Alerts Substance Reaction Severity [...] tablet, Refills 1, Route to Pharmacy Electronically, [facility], 161.5, cm, 08/16/21 14:16:00 EST, Height Start [...] 10:55:00 EDT Start Date: 02/21/20 Status: Ordered [place]-3 oral capsule See Instructions, one daily, 0 [...] Start Date: 02/02/22 Status: Ordered Vitamin D 15182 iu oral capsule 50,000 International_Units, By Mouth, [...] Name: Dionicio ANTON, Lucy Yanez Address: Address: [address] [place] [id number]
--- OUTSIDE RECORDS SUMMARY | 2023-11-15 15:30 | XMS_ITS | Continuity of Care Document ---
Author Organization [facility] José Luis Lalit lt Address [address] [place] [address]- Care Team Providers Care Exterior Designer Name Role Phone Dionicio ANTON, Lucy Yanez Primary Care Physician [phone] [place] [facility] Date(s): 02/12/21 - 03/14/21 [facility] Riccardo Ordonez Adult [address] [place] [address]- Allergies, Adverse Reactions, Alerts Substance Reaction Severity [...] 03/08/21 9:39:00 EDT, Route to Pharmacy Electronically, [facility]/pharmacy #[id number], 161.5, cm, 12/30/20 11:09:00 [...] Required Details Start Date: 05/06/19 Status: Ordered [place]-3 oral capsule See Instructions, one daily, 0 [...]
--- OUTSIDE RECORDS SUMMARY | 2023-11-15 15:30 | XMS_ITS | Continuity of Care Document ---
Author Organization [facility] Riccardo Ordonez Lalit lt Address [address] [place] [address]- Care Team Providers Care Location Man Name Role Phone Dionicio ANTON, Lucy Yanez Primary Care Physician Encounter [facility] Date(s): 07/28/20 - 08/27/20 [facility] Riccardo Ordonez Adult [address] [place] [address]- Allergies, Adverse Reactions, Alerts Substance Reaction Severity [...] 11:31:00 EDT, Route to Pharmacy Electronically, [facility], 161.5, cm, 01/07/20 15:02:00 EDT, Height Start Date: 01/14/20 Status: Ordered metFORMIN 500 mg oral tablet, extended release See Instructions, take 2 in the morning and one in the evening, # 90 tablet, 3 Refills, Maintenance, 07/02/20 12:22:00 EST, [facility]/pharmacy #[id number], 161.5, cm, 07/01/20 9:54:00 EST, Height Start Date: 07/02/20 Status: Ordered Multivitamin Daily, 0 Refills, Maintenance, 02/21/20 10:55:00 EDT Start Date: 02/21/20 Status: Ordered Nexium 20 mg oral enteric coated capsule 1 capsule = 20 mg, By Mouth, Daily, # 90 capsule, 3 Refills, Maintenance, 08/21/20 12:38:00 EST, ECCapsule, [facility], Partial fill upon patient request if the prescription is for a schedule II opioid drug., 161.5, cm, 07/01/20 9:... Start Date: 08/21/20 Status: Ordered Nexium Capsule See Instructions, 22 mg 1 every other day, Refills 0, Maintenance, 05/06/19 16:33:27 EDT, Instructions Replace Required Details Start Date: 05/06/19 Status: Ordered [place]-3 oral capsule See Instructions, one daily, 0 [...]
--- OUTSIDE RECORDS SUMMARY | 2023-11-15 15:31 | XMS_ITS | Continuity of Care Document ---
Author Organization [facility] José Luis Lalit lt Address [address] [place] [address]- Care Team Providers Care Fish Stringer Assembler Name Role Phone Dionicio ANTON, Lucy Yanez Primary Care Physician Encounter [facility] Date(s): 02/18/21 - 03/20/21 [facility] José Luis Adult [address] [place] [address]- Allergies, Adverse Reactions, Alerts Substance Reaction Severity [...] 03/08/21 9:39:00 EDT, Route to Pharmacy Electronically, [facility]/pharmacy #[id number], 161.5, cm, 12/30/20 [...] Required Details Start Date: 05/06/19 Status: Ordered [place]-3 oral capsule See Instructions, one daily, 0 [...]
--- OUTSIDE RECORDS SUMMARY | 2023-11-15 15:31 | XMS_ITS | Continuity of Care Document ---
Author Organization [facility] Lalit lt Address [address] [place] [address]- Care Team Providers Care Neonatal Doctor Name Role Phone Dionicio ANTON, Lucy Yanez Primary Care Physician [place] [facility] 01/29/22 - 05/29/22 [facility] Adult [address] [place] [address]- Attending Physician: Dionicio ANTON, Lucy Yanez Referring Physician: Wade Borges MD Allergies, Adverse [...] tablet, Refills 1, Route to Pharmacy Electronically, [facility] 47726, 161.5, cm, 08/16/21 14:16:00 EST, Height Start [...] 10:55:00 EDT Start Date: 02/21/20 Status: Ordered [place]-3 oral capsule See Instructions, one daily, 0 [...] Start Date: 02/02/22 Status: Ordered Vitamin D 24339 iu oral capsule 50,000 International_Units, By Mouth, [...] Team Personnel Name: Lucy Greenberg NP Position: [facility] PCO Associate Professional Member Role: PCP Address: Address: [address] [place] [address]- Care Team Related Persons Name: ALBA TATE
--- OUTSIDE RECORDS SUMMARY | 2023-11-15 15:31 | XMS_ITS | Continuity of Care Document ---
Author Organization [facility] Riccardo Ordonez Lalit lt Address [address] [place] [address]- Care Team Providers Care Application Support Administrator Name Role Phone Dionicio ANTON, Lucy Yanez Primary Care Physician [phone] Encounter [facility] Date(s): 04/01/22 - 05/01/22 JOYCELYN Ordonez Adult [address] [place] [address]- Allergies, Adverse Reactions, Alerts Substance Reaction Severity [...] tablet, Refills 1, Route to Pharmacy Electronically, [facility], 161.5, cm, 08/16/21 14:16:00 EST, Height Start [...] 10:55:00 EDT Start Date: 02/21/20 Status: Ordered [place]-3 oral capsule See Instructions, one daily, 0 [...] Start Date: 02/02/22 Status: Ordered Vitamin D 16750 iu oral capsule 50,000 International_Units, By Mouth, [...] Name: Dionicio ANTON, Lucy Yanez Address: Address: [address] [place] [address]
--- OUTSIDE RECORDS SUMMARY | 2023-11-15 15:31 | XMS_ITS | Continuity of Care Document ---
Author Organization [facility] José Luis Lalit lt Address [address] [place] [address]- Care Team Providers Care Coupon Collection Clerk Name Role Phone Dionicio ANTON, Lucy Yanez Primary Care Physician Encounter [facility] [place] Date(s): 04/21/21 - 05/21/21 [facility] Riccardo Ordonez Adult [address] [place] [address]- Allergies, Adverse Reactions, Alerts Substance Reaction Severity [...] 03/08/21 9:39:00 EDT, Route to Pharmacy Electronically, [facility]/pharmacy #[id number], 161.5, cm, 12/30/20 11:09:00 [...] Required Details Start Date: 05/06/19 Status: Ordered [place]-3 oral capsule See Instructions, [...]
--- OUTSIDE RECORDS SUMMARY | 2023-11-15 15:31 | XMS_ITS | Continuity of Care Document ---
Author Organization [facility] Riccardo Ordonez Lalit lt Address [address] [place] [address]- Care Team Providers Care Crossing Flagman Name Role Phone Dionicio ANTON, Lucy Yanez Primary Care Physician [facility] Date(s): 09/26/22 - 10/26/22 [facility] Riccardo Ordonez Adult [address] [place] [address]- Allergies, Adverse Reactions, Alerts Substance Reaction Severity Status cefuroxime Active beta blockers Active metFORMIN Diarrhea Active ALVARO inhibitors muscle [...] 0 Refills, Maintenance, 09/03/22 19:13:00 EST, Tablet, [facility]/pharmacy #[id number], Partial fill upon patient request if [...] 0 Refills, Maintenance, 09/08/22 10:27:00 EST, [facility], 161, cm, 08/30/22 14:54:00 EST, Height, 88.9, kg, 08/30/22 14:54:00 EST, Dry Weight Start Date: 09/08/22 Status: Ordered glipiZIDE 5 mg oral tablet 15 mg, 3, tablet, By Mouth, Daily, for 90 days, # 270 tablet, Refills 1, Tot. Refills 1, Hard Stop 03/01/23 11:56:00 EDT, 09/02/22 11:56:00 EST, Route to Pharmacy Electronically, [facility]/pharmacy #[id number], Partial fill upon patient request if the prescriptio... Start Date: 09/02/22 Stop Date: 03/01/23 Status: Ordered glipiZIDE 5 mg oral tablet 15 mg, 3, tablet, By Mouth, Daily, # 270 tablet, Refills 1, Tot. Refills 1, Maintenance, 03/01/23 11:56:00 EDT, Route to Pharmacy Electronically, [facility], Partial fill upon patient request if the prescription is for a schedul... Start Date: 03/01/23 Stop Date: 08/28/23 Status: Ordered hydrochlorothiazide-triamterene 25 mg-37.5 mg oral capsule 1 capsule, By Mouth, Daily, # 90 capsule, 1 Refills, Maintenance, 09/08/22 10:28:00 EST, [facility], 0, 1 capsule By Mouth Daily, 161, cm, 08/30/22 14:54:00 EST, Height, 88.9, kg, 08/30/22 14:54:00 EST, Dry Weight Start Date: 09/08/22 Status: Ordered levothyroxine 0.05 mg oral tablet See Instructions, TAKE 1 TABLET DAILY, TAKE 2 TABLETS ON MONDAY, # 102 tablet, 0 Refills, 09/08/22 10:27:00 EST, [facility], 161, cm, 08/30/22 14:54:00 EST, Height, 88.9, kg, 08/30/22 14:54:00 EST, Dry Weight Start Date: 09/08/22 Status: Ordered loratadine 10 mg oral tablet 1, tablet, By Mouth, Daily, # 90 tablet, Refills 1, Route to Pharmacy Electronically, [id number], 161.5, cm, 08/16/21 14:16:00 EST, Height Start Date: 09/03/21 Status: Ordered losartan 50 mg oral tablet 1 tablet, By Mouth, Daily, # 90 tablet, 3 Refills, 09/08/22 10:28:00 EST, [facility], 161, cm, 08/30/22 14:54:00 EST, Height, 88.9, kg, 08/30/22 14:54:00 EST, Dry Weight Start Date: 09/08/22 Status: Ordered Magnesium Magnesium, 0 Refills, Maintenance, 02/02/22 13:23:00 EDT Start Date: 02/02/22 Status: Ordered Multivitamin Daily, 0 Refills, Maintenance, 02/21/20 10:55:00 EDT Start Date: 02/21/20 Status: Ordered Marion-3 oral capsule See Instructions, one daily, 0 [...] tablet, 1 Refills, Maintenance, 09/08/22 10:29:00 EST, [facility], 161, cm, 08/30/22 14:54:00 EST, [...] Start Date: 02/02/22 Status: Ordered Vitamin D 11912 iu oral capsule 50,000 International_Units, By Mouth, [...] Associate Professional Member Role: PCP Address: Address: [address] [place] [address]- Care Team Related Persons Name: ALBA TATE Address: home [address] [place] [address]
--- OUTSIDE RECORDS SUMMARY | 2023-11-15 15:31 | XMS_ITS | Continuity of Care Document ---
Author Organization [facility] José Luis Lalit lt Address [address] [place] [address]- Care Team Providers Care Human Resource Internship Name Role Phone Dionicio ANTON, Lucy Yanez Primary Care Physician [phone] [facility] Date[facility]s): 09/05/22 - 10/05/22 [facility] Riccardo Ordonez Adult [address] [place] [address]- Allergies, Adverse Reactions, Alerts Substance Reaction Severity [...] 0 Refills, Maintenance, 09/03/22 19:13:00 EST, Tablet, [facility]/pharmacy #[id number], Partial fill upon [...] capsule, 0 Refills, Maintenance, 09/08/22 10:27:00 EST, [facility], 161, cm, 08/30/22 14:54:00 EST, Height, 88.9, kg, 08/30/22 14:54:00 EST, Dry Weight Start Date: 09/08/22 Status: Ordered glipiZIDE 5 mg oral tablet 15 mg, 3, tablet, By Mouth, Daily, for 90 days, # 270 tablet, Refills 1, Tot. Refills 1, Hard Stop 03/01/23 11:56:00 EDT, 09/02/22 11:56:00 EST, Route to Pharmacy Electronically, [facility]/pharmacy #[id number], Partial fill upon patient request if the prescriptio... Start Date: 09/02/22 Stop Date: 03/01/23 Status: Ordered glipiZIDE 5 mg oral tablet 15 mg, 3, tablet, By Mouth, Daily, # 270 tablet, Refills 1, Tot. Refills 1, Maintenance, 03/01/23 11:56:00 EDT, Route to Pharmacy Electronically, [facility], Partial fill upon [...] 102 tablet, 0 Refills, 09/08/22 10:27:00 EST, [facility], 161, cm, 08/30/22 14:54:00 EST, Height, 88.9, kg, 08/30/22 14:54:00 EST, Dry Weight Start Date: 09/08/22 Status: Ordered loratadine 10 mg oral tablet 1, tablet, By Mouth, Daily, # 90 tablet, Refills 1, Route to Pharmacy Electronically, [facility]ORE [id number], 161.5, cm, 08/16/21 14:16:00 EST, Height Start [...] 10:55:00 EDT Start Date: 02/21/20 Status: Ordered Augusta-3 oral capsule See Instructions, one daily, 0 [...] Start Date: 02/02/22 Status: Ordered Vitamin D 62739 iu oral capsule 50,000 International_Units, By Mouth, [...] Professional Member Role: PCP Address: Address: [address] [place] [address]- Care Team Related Persons Name: ALBA TATE Address: home [address] [place] [address]
--- OUTSIDE RECORDS SUMMARY | 2023-11-15 15:31 | XMS_ITS | Continuity of Care Document ---
Author Organization [facility] Address [address] [place] [address]- Care Team Providers Care Teacher Learning Disabled Name Role Phone Dionicio ANTON, Lucy Yanez Primary Care Physician [phone] Encounter [facility] Date(s): 08/30/22 - 09/29/22 [facility] [address] [place] [address]- Allergies, Adverse Reactions, Alerts Substance Reaction Severity Status cefuroxime Active beta blockers Active Macrobid 1, 2 Active Latex rash Active metFORMIN Diarrhea Active ALVARO inhibitors muscle pain Active Bactrim Active 1Reports Macrobid causes inflammation [...] Maintenance, 09/03/22 19:13:00 EST, Tablet, [facility]/pharmacy #[id number], Partial fill upon patient request if [...] EST, [id number], Partial fill upon patient request [...] 1, Route to Pharmacy Electronically, [facility] 07269, 161.5, cm, 08/16/21 14:16:00 EST, Height Start [...] 10:55:00 EDT Start Date: 02/21/20 Status: Ordered Taft-3 oral capsule See Instructions, one daily, 0 [...] tablet, 1 Refills, Maintenance, 09/08/22 10:29:00 EST, [facility], 161, cm, 08/30/22 14:54:00 EST, [...] Start Date: 02/02/22 Status: Ordered Vitamin D 38531 iu oral capsule 50,000 International_Units, By Mouth, [...] Personnel Name: Dionicio ANTON, Lucy Yanez Position: [facility] PCO Associate Professional Member Role: PCP Address: Address: [address] [place] [address]- Care Team Related Persons Name: ALBA TATE Address: home [address] [place] [address]
--- OUTSIDE RECORDS SUMMARY | 2023-11-15 15:31 | XMS_ITS | Continuity of Care Document ---
Author Organization [facility] José Luis Lalit lt Address [address] [place] [address]- Care Team Providers Care Cement Truck Loader Name Role Phone Dionicio ANTON, Lucy Yanez Primary Care Physician [phone] Encounter [facility] Date(s): 07/15/22 - 07/22/22 [facility] Riccardo Ordonez Adult [address] [place] [address]- Encounter Diagnosis Benign essential hypertension(Discharge Diagnosis) - 07/15/22 Hypothyroidism(Discharge Diagnosis) - 07/15/22 Hypercholesterolemia(Discharge Diagnosis) - 07/15/22 Type II diabetes mellitus(Discharge Diagnosis) - 07/15/22 Invasive ductal carcinoma of breast(Discharge Diagnosis) - 07/15/22 Attending Physician: Lucy Greneberg NP Referring Physician: Wade Borges MD Allergies, [...] EDT, Supply Start Date: 01/28/21 Status: Ordered Bactrim DS 800 mg-160 mg oral tablet 1 tablet, By Mouth, Every 12 hours, for 5 days, # 10 tablet, 0 Refills, Acute 07/25/22 10:58:00 EST, 07/20/22 10:58:00 EST, [facility]/pharmacy #[id number], Partial fill upon patient request if the prescription is for a schedule II opioid drug., 1 tablet By Mouth... Start Date: 07/20/22 Stop Date: 07/25/22 Status: Ordered Collagen 0 Refills, Maintenance, 02/02/22 [...] 07/22/22 14:06:00 EST, Route to Pharmacy Electronically, [facility], Partial fill upon patient request if [...] tablet, Refills 1, Route to Pharmacy Electronically, [facility] [id number], 161.5, cm, 08/16/21 14:16:00 EST, Height Start [...] 10:55:00 EDT Start Date: 02/21/20 Status: Ordered Grand Ridge-3 oral capsule See Instructions, one daily, 0 [...] Start Date: 02/02/22 Status: Ordered Vitamin D 57926 iu oral capsule 50,000 International_Units, By Mouth, [...] Effective Dates Health Status Clinical Service Informant Benign essential hypertension Discharge Diagnosis 07/15/22 Hypothyroidism Discharge Diagnosis 07/15/22 Hypercholesterolemia Discharge Diagnosis 07/15/22 Type II diabetes mellitus Discharge Diagnosis 07/15/22 Invasive ductal carcinoma of breast Discharge Diagnosis 07/15/22 Vital Signs Most recent to oldest [Reference Range]: 1 Height 161.3 cm (07/15/22 9:49 AM) Weight 89.2 kg (07/15/22 9:49 AM) Oxygen Saturation [94-100 %] 99 % (07/15/22 9:49 AM) Pulse Rate [55-90 bpm] 87 bpm (07/15/22 9:49 AM) Body Mass Index [18.5-24.99 kg/m2] 34.28 kg/m2 *>HHI* (07/15/22 9:49 AM) Blood Pressure [90-138/55-84 mm Hg] 133/ 74mm Hg (07/15/22 9:49 AM) Temperature [96.8-100.4 DegF] 97.4 DegF (07/15/22 9:49 AM) Mode of Delivery (Oxygen) Room air (07/15/22 9:49 AM) Blood pressure sites Arm, left (07/15/22 9:49 AM) Temperature Route Temporal (07/15/22 9:49 AM) Weight Obtained Via Standing scale (07/15/22 9:49 AM) Social History Social History Type Response Smoking Status Former smoker, quit more than 30 days ago entered on: 05/16/19 Sex Note * Alexandra Paez: PERFORM, SIGN, VERIFY Event Display: Patient Education/Instruction Authored Date: [id number] [facility] *BMP So José Luis Gabriele Clinical Summary Name RENEE TATE Age 81 Years 1940 PCP Dionicio ANTON, Lucy Yanez PCP Visit Date 07/15/2022 09:47:00 Additional Instructions: Scheduled Appointments?? Future Appointments ?*[facility] ?[address]??[place],??[place],??[address] ?Phone:??--?Fax:??-- ?Appt. Date:??08/03/2022?9:15 AM ?Scheduled Provider:??Jose R GATES, Chas Perla ?[facility] ?[address]??[place],??[place],??[address] ?Phone:??[phone]?Fax:??-- ?Appt. Date:??08/09/2022?8:15 AM ?Scheduled Provider:??Edwards NL Rm 1 ?[facility] ?Phone:??--?Fax:??-- ?Appt. Date:??08/10/2022?8:45 AM ?Scheduled Provider:??Segundo GATES, Tri Chapman ?*[facility] ?[address]??[place],??[place],??[address] ?Phone:??--?Fax:??-- ?Appt. Date:??08/23/2022?4:20 PM ?Scheduled Provider:??Segundo GATES, Tri Chapman ?*[facility] ?[address] ?[place],??[place],??[address] ?Phone:??--?Fax:??-- ?Appt. Date:??08/30/2022?1:00 PM ?Scheduled Provider:??Rudy VIDEO GAME DESIGNER , Patricia Perla. ?*[facility] ?[address],??[address] ?Phone:??--?Fax:??-- ?Appt. Date:??10/13/2022?10:10 AM ?Scheduled Provider:??Lucy Greenberg NP Follow-Up Instructions ?? With: Address: When: Lucy Greenberg NP [address] [place] [address] In 3 months Comments: long Diagnosis Malignant neoplasm of unspecified site of unspecified female breast; Essential (primary) hypertension; Pure hypercholesterolemia, unspecified; Type 2 diabetes mellitus without complications; Hypothyroidism, unspecified Medications: Please continue your medications until treatment is completed or stopped by your provider. Discuss any questions related to medications with your provider. Medications to Continue Taking That Have Changed [facility], [address], [place] [id number], [phone] - GlipiZIDE (glipiZIDE 5 mg oral tablet, extended release) 1 tab(s) Oral Daily. take with [id number] for total of 15mg daily. Refills: 0. Next Dose: These medications were not printed or sent to your pharmacy - GlipiZIDE (glipiZIDE 10 mg oral tablet, extended release) 1 tab(s) Oral Daily. replace 5mg. Refills: 1. Next Dose: Medications to Continue with No Changes These medications were not printed or sent to your pharmacy Ascorbic Acid (Vitamin C) Oral Daily. Next Dose: Collagen Next Dose: Durable Medical Equipment (Accu-Chek Paradise Glucose Meter) To check blood sugar twice daily. E11.9 DM II. Refills: 1. Next Dose: Durable Medical Equipment (Accu-Chek Paradise Plus Test Strips) To check blood sugar twice daily. DM II. Refills: 3. Next Dose: Durable Medical Equipment (Accu-Chek Multiclix Drum Lancets) To check blood sugar twice daily. DM II. Refills: 3. Next Dose: Durable Medical Equipment (OneTouch Verio Lancets) To check fasting blood sugar daily. DM II. Refills: 5. Next Dose: Durable Medical Equipment (OneTouch Verio Test Strips) To check fasting blood sugar daily. DM II. Refills: 5. Next Dose: Ergocalciferol (Vitamin D 28953 iu oral capsule) 50,000 International Unit Oral Daily. Next Dose: Esomeprazole (esomeprazole 20 mg oral enteric coated capsule) 1 capsule Oral Daily. Refills: 0. Next Dose: Hydrochlorothiazide/Triamterene (hydrochlorothiazide-triamterene 25 mg-37.5 mg oral capsule) 1 capsule Oral Daily. Refills: 1. Next Dose: Levothyroxine (levothyroxine 0.05 mg oral tablet) TAKE 1 TABLET DAILY, TAKE 2 TABLETS ON MONDAY. Refills: 3. Next Dose: Loratadine (loratadine 10 mg oral tablet) 1 tab(s) Oral Daily. Refills: 1. Next Dose: Losartan (losartan 50 mg oral tablet) 1 tab(s) Oral Daily. Refills: 3. Next Dose: Miscellaneous Rx (Magnesium) Next Dose: Miscellaneous Rx (Probiotic) Next Dose: Multivitamin Daily. Next Dose: Grand Ridge-3 Polyunsaturated Fatty Acids ([place]-3 oral capsule) one daily. Next Dose: Rosuvastatin (rosuvastatin 10 mg oral tablet) 1 tab(s) Oral Daily. Refills: 1. Next Dose: Timolol Ophthalmic (timolol maleate 0.5% ophthalmic solution) 1 Drops Both eyes twice a day. Next Dose: No Longer Take the Following Medications Estradiol Topical (Estrace Vaginal Cream 0.1 mg/g) 1 Gm Vaginally 2 tmes per week. Refills: 3. sitagliptin (Januvia 50 mg oral tablet) 1 tab(s) Oral Daily for 30 Days. Refills: 3. Allergy Info:?? metFORMIN; ALVARO inhibitors; Latex; Macrobid; beta blockers; cefuroxime Medications Given This Visit Future Orders ?No future orders Vital Signs Height 161.3 cm Weight 89.2 kg BMI 34.28 kg/m2 Blood Pressure 133 mm Hg/74 mm Hg Temperature 97.4 DegF Pulse Rate 87 bpm Respiratory Rate 02 Sat Mode of Delivery 99 %/Room air You can now view a summary of your hospital visit from the comfort of your home through a free online portal called [employer]. [employer] is a website that allows you to securely view your medical information including discharge summary, medications and follow-up visits. ??You can alsosend a secure electronic message to your doctor???s office to request appointments, renew medications or just ask a question. You can enroll at [email or web address] or register during your next office visit. Disclaimer:?? The information provided is of a general nature and is intended to be used in conjunction with the recommendations and advice of your health care practitioner. ??Every effort has been made to ensure that the information provided is accurate and complete at the time it is provided to you however, as your needs change, or, as new ??information becomes available, different or additional instructions may be required. If you have questions, please consult with your primary care provider or pharmacist, as appropriate. ??This information is not intended to serve as substitution for assessment and evaluation by a qualified health care provider. If you do not have a primary care provider, you may find a [facility] provider by calling [facility] at [phone]. For information about the plan of care including goals and instructions for your diagnosis, please see the patient education orders section of this document. Patient Education Materials?? The content of this educational material or handout may have been modified, supplemented, or adapted from its original content and format to support your individualized medical care. * Natalie Elizalde: PERFORM, SIGN, VERIFY Event Display: Patient Education/Instruction Authored Date: [id number] [facility] *JOYCELYN Suazo Clinical Summary Name RENEE TATE Age 81 Years 1940 PCP Dionicio ANTON, Lucy [facility]anez [id number] Visit Date 07/15/2022 09:47:00 Additional Instructions: Scheduled Appointments?? Future Appointments ?*[facility] ?[address]??[place],??[place],??[address] ?Phone:??--?Fax:??-- ?Appt. Date:??08/03/2022?9:15 AM ?Scheduled Provider:??Jose R GATES, Chas Perla ?[facility] ?[address]??[place],??[place],??[address] ?Phone:??[phone]?Fax:??-- ?Appt. Date:??08/09/2022?8:15 AM ?Scheduled Provider:??Edwards NL Rm 1 ?[facility] ?Phone:??--?Fax:??-- ?Appt. Date:??08/10/2022?8:45 AM ?Scheduled Provider:??Segundo GATES, Tri Chapman ?*[facility] ?[address]??[place],??[place],??[address] ?Phone:??--?Fax:??-- ?Appt. Date:??08/23/2022?4:20 PM ?Scheduled Provider:??Segundo GATES, Tri Chapman ?*[facility] ?[address] ?[place],??[place],??[address] ?Phone:??--?Fax:??-- ?Appt. Date:??08/30/2022?1:00 PM ?Scheduled Provider:??Rudy ANTON , Patricia Perla. Follow-Up Instructions ?? With: Address: When: Dionicio ANTON, Lucy Yanez [address] [place] [address] In 3 months Comments: long Diagnosis Malignant neoplasm of unspecified site of unspecified female breast; Essential (primary) hypertension; Pure hypercholesterolemia, unspecified; Type 2 diabetes mellitus without complications; Hypothyroidism, unspecified Medications: Please continue your medications until treatment is completed or stopped by your provider. Discuss any questions related to medications with your provider. Medications to Continue Taking That Have Changed [facility], [address] [place], [place] [id number], [phone] - GlipiZIDE (glipiZIDE 5 mg oral tablet, extended release) 1 tab(s) Oral Daily. take with [id number] for total of 15mg daily. Refills: 0. Next Dose: These medications were not printed or sent to your pharmacy - GlipiZIDE (glipiZIDE 10 mg oral tablet, extended release) 1 tab(s) Oral Daily. replace 5mg. Refills: 1. Next Dose: Medications to Continue with No Changes These medications were not printed or sent to your pharmacy Ascorbic Acid (Vitamin C) Oral Daily. Next Dose: Collagen Next Dose: Durable Medical Equipment (Accu-Chek Paradise Glucose Meter) To check blood sugar twice daily. DM II. Refills: 1. Next Dose: Durable Medical Equipment (Accu-Chek Paradise Plus Test Strips) To check blood sugar twice daily. . DM II. Refills: 3. Next Dose: Durable Medical Equipment (Accu-Chek Multiclix Drum Lancets) To check blood sugar twice daily. DM II. Refills: 3. Next Dose: Durable Medical Equipment (OneTouch Verio Lancets) To check fasting blood sugar daily. DM II. Refills: 5. Next Dose: Durable Medical Equipment (OneTouch Verio Test Strips) To check fasting blood sugar daily. DM II. Refills: 5. Next Dose: Ergocalciferol (Vitamin D 39751 iu oral capsule) 50,000 International Unit Oral Daily. Next Dose: Esomeprazole (esomeprazole 20 mg oral enteric coated capsule) 1 capsule Oral Daily. Refills: 0. Next Dose: Hydrochlorothiazide/Triamterene (hydrochlorothiazide-triamterene 25 mg-37.5 mg oral capsule) 1 capsule Oral Daily. Refills: 1. Next Dose: Levothyroxine (levothyroxine 0.05 mg oral tablet) TAKE 1 TABLET DAILY, TAKE 2 TABLETS ON MONDAY. Refills: 3. Next Dose: Loratadine (loratadine 10 mg oral tablet) 1 tab(s) Oral Daily. Refills: 1. Next Dose: Losartan (losartan 50 mg oral tablet) 1 tab(s) Oral Daily. Refills: 3. Next Dose: Miscellaneous Rx (Magnesium) Next Dose: Miscellaneous Rx (Probiotic) Next Dose: Multivitamin Daily. Next Dose: [place] Ridge-3 Polyunsaturated Fatty Acids ([place]-3 oral capsule) one daily. Next Dose: Rosuvastatin (rosuvastatin 10 mg oral tablet) 1 tab(s) Oral Daily. Refills: 1. Next Dose: Timolol Ophthalmic (timolol maleate 0.5% ophthalmic solution) 1 Drops Both eyes twice a day. Next Dose: No Longer Take the Following Medications Estradiol Topical (Estrace Vaginal Cream 0.1 mg/g) 1 Gm Vaginally 2 tmes per week. Refills: 3. sitagliptin (Januvia 50 mg oral tablet) 1 tab(s) Oral Daily for 30 Days. Refills: 3. Allergy Info:?? metFORMIN; ALVARO inhibitors; Latex; Macrobid; beta blockers; cefuroxime Medications Given This Visit Future Orders ?No future orders Vital Signs Height 161.3 cm Weight 89.2 kg BMI 34.28 kg/m2 Blood Pressure 133 mm Hg/74 mm Hg Temperature 97.4 DegF Pulse Rate 87 bpm Respiratory Rate 02 Sat Mode of Delivery 99 %/Room air You can now view a summary of your hospital visit from the comfort of your home through a free online portal called [employer]. [employer] is a website that allows you to securely view your medical information including discharge summary, medications and follow-up visits. ??You can alsosend a secure electronic message to your doctor???s office to request appointments, renew medications or just ask a question. You can enroll at [email or web address] or register during your next office visit. Disclaimer:?? The information provided is of a general nature and is intended to be used in conjunction with the recommendations and advice of your health care practitioner. ??Every effort has been made to ensure that the information provided is accurate and complete at the time it is provided to you however, as your needs change, or, as new ??information becomes available, different or additional instructions may be required. If you have questions, please consult with your primary care provider or pharmacist, as appropriate. ??This information is not intended to serve as substitution for assessment and evaluation by a qualified health care provider. If you do not have a primary care provider, you may find a [facility] provider by calling [facility] at [phone]. For information about the plan of care including goals and instructions for your diagnosis, please see the patient education orders section of this document. Patient Education Materials?? The content of this educational material or handout may have been modified, supplemented, or adapted from its original content and format to support your individualized medical care. Patient Care team information Care Team Personnel Name: Lucy Greenberg NP Position: [facility] PCO Associate Professional Member Role: PCP Address: Address: [address] [place] [address]- Care Team Related Persons Name: ALBA TATE
--- OUTSIDE RECORDS SUMMARY | 2023-11-15 15:31 | XMS_ITS | Continuity of Care Document ---
Author Organization [facility] an[facility] Address [address] [place] [address]- Care Team Providers Care Cell Stripper Name Role Phone Dionicio ANTON, Lucy Yanez Primary Care Physician Encounter [facility] Date(s): 09/04/23 - 10/04/23 [facility] Care [address] [place] [address]- Attending Physician: Damián Turcios Admitting Physician: AdmDamián pagan Referring Physician: AdmtrDamián Allergies, Adverse Reactions, Alerts Substance Reaction Severity [...] (oldterm) 1 04/19/23 Recor ded SARS-CoV-2 mRNA (ezfjurl-dcez-ztgle) vax 2 04/19/23 Recorded influenza virus vaccine, inactivated 04/05/22 Boyd rded influenza virus vaccine, inactivated 04/28/21 Give n influenza virus vaccine, inactivated 04/22/20 Give n influenza virus vaccine, inactivated 04/09/19 Boyd rded influenza virus vaccine, inactivated 03/28/18 Boyd rded [id number] bivalent booster vax 04/02/22 Recorded SARS-CoV-2 (COVID-19) mRNA-1273 vaccine 11/25/21 R ecorded SARS-CoV-2 (COVID-19) mRNA BNT-162b2 vac 04/22/21 Recorded SARS-CoV-2 (COVID-19) mRNA BNT-162b2 vac 09/09/20 Given SARS-CoV-2 (COVID-19) mRNA BNT-162b2 vac 08/19/20 Recorded zoster vaccine, inactivated 04/06/19 Recorded 1Result Comment: [facility] [place] 2Result Comment: [facility] [place] Medications Accu-Chek [place] Glucose Meter See Instructions, [...] tablet, 0 Refills, Maintenance, 09/27/23 6:40:00 EDT, [facility]/pharmacy #[id number], Partial fill upon patient request [...] 3 Refills, Maintenance, 01/27/23 9:13:00 EDT, [facility], 161, cm, 10/28/22 13:31:00 EDT, [...] Date: 09/19/23 Status: Ordered Freestyle Ortiz 2 [place] Freestyle Ortiz 2 [place], See Instructions, # 1 each, Refills 0, [...] capsule, 1 Refills, Maintenance, 09/05/23 6:39:00 EST, [facility], 90, TAKE 1 CAPSULE DAILY, 161, cm, 05/16/23 10:58:00 EDT, Height, 84.7, kg, 05/04/23 15:05:00 EDT, Dry Weight Start Date: 09/05/23 Status: Ordered Januvia 50 mg oral tablet 1 tablet = 50 mg, By Mouth, Daily, # 30 tablet, 0 Refills, Maintenance, 09/27/23 12:50:00 EDT, Tablet, [facility]/pharmacy #[id number], Partial fill upon patient request if the [...] Stop 02/29/24 11:33:00 EDT, 09/02/23 11:33:00 EST, [facility], 161, cm, 02/22/23 11:03:00 EDT, Height,86.9, [...] EDT Start Date: 02/21/20 Status: Ordered [place]-3 oral capsule 0 Refills, Maintenance, 09/13/23 15:32:00 [...] tablet, 1 Refills, Maintenance, 09/05/23 23:33:00 EST, [facility], 161, cm, 05/16/23 10:58:00 EDT, Height, 84.7, kg, 05/04/23 15:05:00 EDT, Dry Weight Start Date: 09/05/23 Status: Ordered Synthroid 0.05 mg oral tablet 1 tablet, By Mouth, Daily, TAKE 2TABLETS ON MONDAY, # 102 tablet, 1 Refills, Maintenance, 06/20/23 10:22:00 EST, [facility], 161, cm, 05/16/23 10:58:00 EDT, Height, 84.7, kg, 05/04/23 15:05:00 EDT, Dry Weight Start Date: 06/20/23 Status: Ordered timolol maleate 0.5% ophthalmic solution 1 drops, Eyes, Both, 2 times a day, # 10 mL, 0 Refills, Maintenance, 12/27/19 10:36:00 EDT, Solution Start Date: 12/27/19 Status: Ordered Vitamin D 22462 iu oral capsule 50,000 International_Units, By Mouth, [...] Associate Professional Member Role: PCP Address: Address: [address] [place] [address]- Care Team Related Persons Name: ALBA TATE Address: home [address] [place] [address]
--- OUTSIDE RECORDS SUMMARY | 2023-11-15 15:31 | XMS_ITS | Continuity of Care Document ---
Author Organization [facility] José Luis Lalit lt Address [address] [place] [address]- Care Team Providers Care Dump Truck Driver Name Role Phone Dionicio ANTON, Lucy Yanez Primary Care Physician [place] [facility] [place] 04/06/20 - 05/06/20 [facility] Adult [address] [place] [address]- [facility] Allergies, Adverse Reactions, [...] Required Details Start Date: 05/06/19 Status: Ordered [place]-3 oral capsule See Instructions, one daily, 0 [...]
--- OUTSIDE RECORDS SUMMARY | 2023-11-15 15:31 | XMS_ITS | Continuity of Care Document ---
Author Organization [facility] Riccardo Ordonez Lalit lt Address [address] [place] [address]- Care Team Providers Care Heavy Media Operator Name Role Phone Dionicio ANTON, Lucy Yanez Primary Care Physician Encounter [facility] Date(s): 09/21/23 - 10/21/23 [facility] Riccardo Ordonez Adult [address] [place] [address]- Allergies, Adverse Reactions, Alerts Substance Reaction Severity [...] (oldterm) 1 04/19/23 Recor ded SARS-CoV-2 mRNA (vcrgagz-zoaa-aanty) vax 2 04/19/23 Recorded influenza virus vaccine, inactivated 04/05/22 Boyd rded influenza virus vaccine, inactivated 04/28/21 Give n influenza virus vaccine, inactivated 04/22/20 Give n influenza virus vaccine, inactivated 04/09/19 Boyd rded influenza virus vaccine, inactivated 03/28/18 Obyd rded [id number] bivalent booster vax 04/02/22 Recorded SARS-CoV-2 (COVID-19) mRNA-1273 vaccine 11/25/21 R ecorded SARS-CoV-2 (COVID-19) mRNA BNT-162b2 vac 04/22/21 Recorded SARS-CoV-2 (COVID-19) mRNA BNT-162b2 vac 09/09/20 Given SARS-CoV-2 (COVID-19) mRNA BNT-162b2 vac 08/19/20 Recorded zoster vaccine, inactivated 04/06/19 Recorded 1Result Comment: [facility] in [place] 2Result Comment: [facility] [place] Medications Accu-Chek [place] Glucose Meter See Instructions, [...] tablet, 1 Refills, Maintenance, 09/03/23 6:59:00 EST, [facility], 161, cm, 05/16/23 10:58:00 EDT, Height, 84.7, kg, 05/04/23 15:05:00 EDT, Dry Weight Start Date: 09/03/23 Status: Ordered esomeprazole 20 mg oral enteric coated capsule 1 capsule, By Mouth, Daily, # 90 capsule, 3 Refills, Maintenance, 01/27/23 9:13:00 EDT, [facility], 161, cm, 10/28/22 13:31:00 EDT, Height, [...] Date: 10/11/23 Status: Ordered Freestyle Ortiz 2 [place] Freestyle Ortiz 2 [place], See Instructions, # 1 each, Refills 0, [...] capsule, 1 Refills, Maintenance, 09/05/23 6:39:00 EST, [facility], 90, TAKE 1 [...] 10:55:00 EDT Start Date: 02/21/20 Status: Ordered [place]-3 oral capsule 0 Refills, Maintenance, 09/13/23 15:32:00 [...] 1 Refills, Maintenance, 09/05/23 23:33:00 EST, [facility], 161, cm, 05/16/23 10:58:00 EDT, Height, 84.7, kg, 05/04/23 15:05:00 EDT, Dry Weight Start Date: 09/05/23 Status: Ordered Synthroid 0.05 mg oral tablet 1 tablet, By Mouth, Daily, TAKE 2TABLETS ON MONDAY, # 102 tablet, 1 Refills, Maintenance, 06/20/23 10:22:00 EST, [facility], 161, cm, 05/16/23 10:58:00 EDT, Height, 84.7, kg, 05/04/23 15:05:00 EDT, Dry Weight Start Date: 06/20/23 Status: Ordered timolol maleate 0.5% ophthalmic solution 1 drops, Eyes, Both, 2 times a day, # 10 mL, 0 Refills, Maintenance, 12/27/19 10:36:00 EDT, Solution Start Date: 12/27/19 Status: Ordered Vitamin D 46973 iu oral capsule 50,000 International_Units, By Mouth, [...] Team Personnel Name: Lucy Greenberg NP Position: [facility] PCO Associate Professional Member Role: PCP Address: Address: [address] [facility] Adult [facility] [place] [address]- Care Team Related Persons Name: ALBA TATE Address: home [address] [place] [address]
--- OUTSIDE RECORDS SUMMARY | 2023-11-15 15:31 | XMS_ITS | Continuity of Care Document ---
Author Organization [facility] Riccardo Ordonez Lalit lt Address [address] [place] [address]- Care Team Providers Care Frameman Name Role Phone Dionicio ANTON, Lucy Yanez Primary Care Physician [phone] Encounter [place] Date(s): 02/11/20 - 03/12/20 [facility] Adult [address] [place] [address]- [facility] Allergies, Adverse Reactions, Alerts Substance Reaction [...] Refills, Maintenance, 01/14/20 11:28:00 EDT, Capsule, [facility], 1 capsule By Mouth Daily, 161.5, cm, 01/07/20 15:02:00 EDT, Height Start Date: 01/14/20 Status: Ordered levothyroxine 0.05 mg oral tablet 1 tablet = 50 mcg, By Mouth, Daily, recheck tsh level in 6 weeks, # 90 tablet, 1 Refills, Maintenance, 02/10/20 12:07:00 EDT, [facility], 161.5, cm, 01/07/20 15:02:00 EDT, Height Start Date: 02/10/20 Stop Date: 03/11/20 Status: Ordered LORazepam 0.5 mg oral tablet 1 tablet = 0.5 mg, By Mouth, Daily at bedtime, for 30 days, # 30 tablet, 1 Refills, Acute 04/10/20 8:57:00 EDT, 02/10/20 8:57:00 EDT, [facility], 161.5, cm, 01/07/20 15:02:00 EDT, [...] 3 Refills, Maintenance, 01/14/20 11:32:00 EDT, [facility], 161.5, cm, 01/07/20 15:02:00 EDT, Height Start Date: 01/14/20 Status: Ordered Multivitamin Daily, 0 Refills, Maintenance, 02/21/20 10:55:00 EDT Start Date: 02/21/20 Status: Ordered Nexium Capsule See Instructions, 22 mg 1 every other day, Refills 0, Maintenance, 05/06/19 16:33:27 EDT, Instructions Replace Required Details Start Date: 05/06/19 Status: Ordered [place]-3 oral capsule See Instructions, one daily, 0 [...]
--- OUTSIDE RECORDS SUMMARY | 2023-11-15 15:31 | XMS_ITS | Continuity of Care Document ---
Author Organization [facility] José Luis Lalit lt Address [address] [place] [address]- Care Team Providers Care Rhinologist Name Role Phone Dionicio ANTON, Lucy Yanez Primary Care Physician [phone] Encounter [facility] Date(s): 11/10/22 - 12/10/22 [facility] Riccardo Ordonez Adult [address] [place] [address]- Allergies, Adverse Reactions, Alerts Substance Reaction Severity Status cefuroxime Active beta blockers Active Macrobid 1, 2 Active metFORMIN Diarrhea Active Bactrim Active Latex rash Active ALVARO [...] tablet, 0 Refills, Maintenance, 10/31/22 11:47:00 EDT, [id number], 161, cm, 10/28/22 13:31:00 EDT, Height, 86.9, [...] capsule, 0 Refills, Maintenance, 12/01/22 16:17:00 EDT, [facility] [id number], 161, cm, 10/28/22 13:31:00 EDT, Height, 86.9, kg, 10/28/22 13:31:00 EDT, Dry Weight Start Date: 12/01/22 Status: Ordered glipiZIDE 10 mg oral tablet, extended release 1 tablet = 10 mg, By Mouth, Daily, # 90 tablet, 1 Refills, Maintenance, 12/02/22 14:40:00 EDT, [facility], Partial fill [...] tablet, 0 Refills, Maintenance, 12/01/22 16:17:00 EDT, [id number], 161, cm, 10/28/22 13:31:00 EDT, Height, 86.9, kg, 10/28/22 13:31:00 EDT, Dry Weight Start Date: 12/01/22 Status: Ordered loratadine 10 mg oral tablet 1, tablet, By Mouth, Daily, # 90 tablet, Refills 1, Route to Pharmacy Electronically, [facility] [id number], 161.5, cm, 08/16/21 14:16:00 EST, Height Start Date: 09/03/21 Status: Ordered losartan 50 mg oral tablet 1 tablet, By Mouth, Daily, # 90 tablet, 3 Refills, 09/08/22 10:28:00 EST, [facility], 161, cm, 08/30/22 14:54:00 EST, Height, 88.9, kg, 08/30/22 14:54:00 EST, Dry Weight Start Date: 09/08/22 Status: Ordered Magnesium Magnesium, 0 Refills, Maintenance, 02/02/22 13:23:00 EDT Start Date: 02/02/22 Status: Ordered Multivitamin Daily, 0 Refills, Maintenance, 02/21/20 10:55:00 EDT Start Date: 02/21/20 Status: Ordered [place]-3 oral capsule See Instructions, one daily, 0 [...] tablet, 1 Refills, Maintenance, 09/08/22 10:29:00 EST, [facility], 161, cm, 08/30/22 14:54:00 [...] Start Date: 02/02/22 Status: Ordered Vitamin D 58200 iu oral capsule 50,000 International_Units, By Mouth, [...] Associate Professional Member Role: PCP Address: Address: [address] [place] [address]- Care Team Related Persons Name: ALBA TATE Address: home [address] [place] [address]
--- OUTSIDE RECORDS SUMMARY | 2023-11-15 15:31 | XMS_ITS | Continuity of Care Document ---
Author Organization [facility] Lalit lt Address [address] [place] [address]- Care Team Providers Care Peoplesoft Hcm Developer Name Role Phone Dionicio ANTON, Lucy Yanez Primary Care Physician [phone] [place] [facility] 01/05/23 - 02/04/23 [facility] Adult [address] [place] [address]- Allergies, Adverse Reactions, Alerts Substance Reaction Severity [...] 0 Refills, Maintenance, 10/31/22 11:47:00 EDT, [facility] [address]1696, 161, cm, 10/28/22 13:31:00 EDT, Height, 86.9, [...] capsule, 3 Refills, Maintenance, 01/27/23 9:13:00 EDT, [facility], 161, cm, 10/28/22 13:31:00 EDT, Height, 86.9, kg, 10/28/22 13:31:00 EDT, DryWeight Start Date: 01/27/23 Status: Ordered glipiZIDE 5 mg oral tablet, extended release 3 tablet = 15 mg, By Mouth, Daily, # 90 tablet, 3 Refills, Maintenance, 01/27/23 15:23:00 EDT, [facility], Partial [...] Refills 1, Route to Pharmacy Electronically, [id number], 161.5, cm, 08/16/21 14:16:00 EST, Height Start [...] 10:55:00 EDT Start Date: 02/21/20 Status: Ordered [place]-3 oral capsule See Instructions, one daily, 0 [...] tablet, 1 Refills, Maintenance, 09/08/22 10:29:00 EST, [facility], 161, cm, 08/30/22 14:54:00 EST, Height, 88.9, kg, 08/30/22 14:54:00 EST, Dry Weight Start Date: 09/08/22 Status: Ordered Synthroid 0.05 mg oral tablet 1 tablet, By Mouth, Daily, TAKE 2TABLETS ON MONDAY, # 102 tablet, 1 Refills, Maintenance, 01/27/23 4:55:00 EDT, [facility], 161, cm, 10/28/22 13:31:00 EDT, Height, [...] Start Date: 02/02/22 Status: Ordered Vitamin D 59801 iu oral capsule 50,000 International_Units, By Mouth, [...] Professional Member Role: PCP Address: Address: [address] [place] [address]- Care Team Related Persons Name: ALBA TATE Address: home [address] [place] [address]
--- OUTSIDE RECORDS SUMMARY | 2023-11-15 15:32 | XMS_ITS | Continuity of Care Document ---
Author Organization [facility] Riccardo Ordonez Lalit lt Address [address] [place] [address]- Care Team Providers Care School Psychometrist Name Role Phone Dionicio ANTON, Lucy Yanez Primary Care Physician Encounter [facility] [place] Date(s): 06/29/21 - 07/29/21 [facility] Riccardo Ordonez Adult [address] [place] [address]- Allergies, Adverse Reactions, Alerts Substance Reaction Severity [...] 03/08/21 9:39:00 EDT, Route to Pharmacy Electronically, [facility]/pharmacy #[id number], 161.5, cm, 12/30/20 11:09:00 EDT, [...] Required Details Start Date: 05/06/19 Status: Ordered [place]-3 oral capsule See Instructions, one daily, 0 [...]
--- OUTSIDE RECORDS SUMMARY | 2023-11-15 15:32 | XMS_ITS | Continuity of Care Document ---
Author Organization [facility] Riccardo Ordonez Lalit lt Address [address] [place] [address]- Care Team Providers Care Leaf Tier Name Role Phone Dionicio ANTON, Lucy Yanez Primary Care Physician [facility]counter [facility] Date(s): 09/27/23 - 10/27/23 [facility] Riccardo Ordonez Adult [address] [place] [address]- Allergies, Adverse Reactions, Alerts Substance Reaction Severity [...] (oldterm) 1 04/19/23 Recor ded SARS-CoV-2 mRNA (aafjafl-egwq-knvze) vax 2 04/19/23 Recorded influenza virus vaccine, inactivated 04/05/22 Boyd rded influenza virus vaccine, inactivated 04/28/21 Give n influenza virus vaccine, inactivated 04/22/20 Give n influenza virus vaccine, inactivated 04/09/19 Boyd rded influenza virus vaccine, inactivated 03/28/18 Boyd rded [id number] bivalent booster vax 04/02/22 Recorded SARS-CoV-2 (COVID-19) mRNA-1273 vaccine 11/25/21 R ecorded SARS-CoV-2 (COVID-19) mRNA BNT-162b2 vac 04/22/21 Recorded SARS-CoV-2 (COVID-19) mRNA BNT-162b2 vac 09/09/20 Given SARS-CoV-2 (COVID-19) mRNA BNT-162b2 vac 08/19/20 Recorded zoster vaccine, inactivated 04/06/19 Recorded 1Result Comment: [facility] in [place] 2Result Comment: [facility] in [place] Medications Accu-Chek [place] Glucose Meter See Instructions, [...] capsule, 3 Refills, Maintenance, 01/27/23 9:13:00 EDT, [facility], 161, cm, 10/28/22 13:31:00 EDT, [...] Date: 10/11/23 Status: Ordered Freestyle Ortiz 2 [place] Freestyle Ortiz 2 [place], See Instructions, # 1 each, Refills 0, [...] Refills, Maintenance, 10/11/23 7:41:00 EDT, Tablet, [facility], Partial fill upon [...] 02/29/24 11:33:00 EDT, 09/02/23 11:33:00 EST, [facility], 161, cm, 02/22/23 11:03:00 EDT, [...] 10:55:00 EDT Start Date: 02/21/20 Status: Ordered [place]-3 oral capsule 0 Refills, Maintenance, 09/13/23 15:32:00 [...] tablet, 1 Refills, Maintenance, 09/05/23 23:33:00 EST, [facility], 161, cm, 05/16/23 10:58:00 EDT, Height, 84.7, kg, 05/04/23 15:05:00 EDT, Dry Weight Start Date: 09/05/23 Status: Ordered Synthroid 0.05 mg oral tablet 1 tablet, By Mouth, Daily, TAKE 2TABLETS ON MONDAY, # 102 tablet, 1 Refills, Maintenance, 06/20/23 10:22:00 EST, [facility], 161, cm, 05/16/23 10:58:00 EDT, Height, 84.7, kg, 05/04/23 15:05:00 EDT, Dry Weight Start Date: 06/20/23 Status: Ordered timolol maleate 0.5% ophthalmic solution 1 drops, Eyes, Both, 2 times a day, # 10 mL, 0 Refills, Maintenance, 12/27/19 10:36:00 EDT, Solution Start Date: 12/27/19 Status: Ordered Vitamin D 92934 iu oral capsule 50,000 International_Units, By Mouth, [...] Team Personnel Name: Lucy Greenberg NP Position: [facility] PCO Associate Professional Member Role: PCP Address: Address: [address] [facility] Adult [facility] [place] [address]- Care Team Related Persons Name: ALBA TATE Address: home [address] [place] [address]
--- OUTSIDE RECORDS SUMMARY | 2023-11-15 15:32 | XMS_ITS | Continuity of Care Document ---
Author Organization [facility] Riccardo Ordonez Lalit lt Address [address] [place] [address]- Care Team Providers Care Consumer Marketing Manager Name Role Phone Dionicio ANTON, Lucy Yanez Primary Care Physician Encounter [facility] [place] Date(s): 07/28/20 - 08/27/20 [facility] Riccardo Ordonez Adult [address] [place] [address]- Allergies, Adverse Reactions, Alerts Substance Reaction Severity [...] 11:31:00 EDT, Route to Pharmacy Electronically, [facility], 161.5, cm, 01/07/20 15:02:00 EDT, Height Start Date: 01/14/20 Status: Ordered metFORMIN 500 mg oral tablet, extended release See Instructions, take 2 in the morning and one in the evening, # 90 tablet, 3 Refills, Maintenance, 07/02/20 12:22:00 EST, [facility]/pharmacy #[id number], 161.5, cm, 07/01/20 [...] Required Details Start Date: 05/06/19 Status: Ordered [place]-3 oral capsule See Instructions, one daily, 0 [...]
--- OUTSIDE RECORDS SUMMARY | 2023-11-15 15:32 | XMS_ITS | Continuity of Care Document ---
Author Organization [facility] José Luis Lalit Address [address] [place] [address]- Care Team Providers Care Acetylene Torch Burner Name Role Phone Dionicio ANTON, Lucy Yanez Primary Care Physician En[place] [facility] [place] Date(s): 12/17/19 - 01/26/20 [facility] Adult [address] [place] [address]- [facility] Encounter Diagnosis Type II diabetes mellitus(Discharge Diagnosis) - 12/27/19 Anxiety(Discharge Diagnosis) - 12/27/19 Benign essential hypertension(Discharge Diagnosis) - 12/27/19 Hypercholesterolemia(Discharge Diagnosis) - 12/27/19 Hypothyroidism(Discharge Diagnosis) - 12/27/19 Attending Physician: Jony GATES, Wade Irwin Allergies, Adverse [...] tablet, 0 Refills, Maintenance, 01/07/20 15:36:00 EDT, [facility]/pharmacy #[id number], 161.5, cm, 01/07/20 15:02:00 EDT, Height Start Date: 01/07/20 Stop Date: 02/25/20 Status: Ordered LORazepam 0.5 mg oral tablet 1 tablet = 0.5 mg, By Mouth, Daily at bedtime, for 30 days, # 30 tablet, 1 Refills, Acute 03/22/20 10:02:00 EDT, 01/22/20 10:02:00 EDT, [facility], 161.5, cm, 01/07/20 15:02:00 EDT, Height Start Date: 01/22/20 Stop Date: 03/22/20 Status: Ordered losartan 50 mg oral tablet 50 mg, 1, tablet, By Mouth, Daily, # 90 tablet, Refills 3, Tot. Refills 3, Maintenance, 01/14/20 11:31:00 EDT, Route to Pharmacy Electronically, [facility], 161.5, cm, 01/07/20 15:02:00 EDT, Height Start Date: 01/14/20 Status: Ordered metFORMIN 500 mg oral tablet, extended release 1 tablet = 500 mg, By Mouth, 2 times a day, replace short acting, # 180 tablet, 3 Refills, Maintenance, 01/14/20 11:32:00 EDT, [facility], 161.5, cm, 01/07/20 15:02:00 EDT, Height Start Date: 01/14/20 Status: Ordered Nexium Capsule See Instructions, 22 mg 1 every other day, Refills 0, Maintenance, 05/06/19 16:33:27 EDT, Instructions Replace Required Details Start Date: 05/06/19 Status: Ordered [place]-3 oral capsule See Instructions, one daily, 0 [...] Informant Type II diabetes mellitus Discharge Diagnosis 12/27/19 Anxiety Discharge Diagnosis 12/27/19 Benign essential hypertension Discharge Diagnosis 12/27/19 Hypercholesterolemia Discharge Diagnosis 12/27/19 Hypothyroidism Discharge Diagnosis 12/27/19 Vital Signs Most recent to oldest [Reference Range]: 1 Height 161.5 cm (12/27/19 10:14 AM) Weight 83.5 kg (12/27/19 10:14 AM) Oxygen Saturation [94-100 %] 95 % (12/27/19 10:14 AM) Pulse Rate [55-90 bpm] 91 bpm *H* (12/27/19 10:14 AM) Body Mass Index [18.5-24.99] 32.01 *>HHI* (12/27/19 10:14 AM) Blood Pressure [90-138/55-84 mm Hg] 137/ 70mm Hg (12/27/19 10:14 AM) Temperature [96.8-100.4 DegF] 98.3 DegF (12/27/19 10:14 AM) Blood pressure sites Arm, left (12/27/19 10:14 AM) Temperature Route Oral (12/27/19 10:14 AM) Weight Obtained Via Standing scale (12/27/19 10:14 AM) Social History Social History Type Response Smoking Status Former smoker, quit more than 30 days ago entered on: 05/16/19 Sex
--- OUTSIDE RECORDS SUMMARY | 2023-11-15 15:32 | XMS_ITS | Continuity of Care Document ---
Author Organization [facility] José Luis Lalit lt Address [address] [place] [address]- Care Team Providers Care Motor Lodge Clerk Name Role Phone Dionicio ANTON, Lucy Yanez Primary Care Physician [phone] Encounter [facility] Date(s): 12/06/22 - 01/05/23 [facility] Riccardo Ordonez Adult [address] [place] [address]- Allergies, Adverse Reactions, Alerts Substance Reaction Severity [...] tablet, 0 Refills, Maintenance, 10/31/22 11:47:00 EDT, [facility] 94498, 161, cm, 10/28/22 13:31:00 EDT, Height, 86.9, [...] capsule, 0 Refills, Maintenance, 12/01/22 16:17:00 EDT, [facility] 465[facility], 161, cm, 10/28/22 13:31:00 EDT, Height, 86.9, kg, 10/28/22 13:31:00 EDT, Dry Weight Start Date: 12/01/22 Status: Ordered glipiZIDE 10 mg oral tablet, extended release 1 tablet = 10 mg, By Mouth, Daily, # 90 tablet, 1 Refills, Maintenance, 12/02/22 14:40:00 EDT, [facility], Partial [...] tablet, 0 Refills, Maintenance, 12/01/22 16:17:00 EDT, [facility] 07419, 161, cm, 10/28/22 13:31:00 EDT, Height, 86.9, kg, 10/28/22 13:31:00 EDT, Dry Weight Start Date: 12/01/22 Status: Ordered loratadine 10 mg oral tablet 1, tablet, By Mouth, Daily, # 90 tablet, Refills 1, Route to Pharmacy Electronically, [facility] [id number], 161.5, cm, 08/16/21 14:16:00 EST, Height Start [...] 10:55:00 EDT Start Date: 02/21/20 Status: Ordered [place]-3 oral capsule See Instructions, one daily, 0 [...] 1 Refills, Maintenance, 09/08/22 10:29:00 EST, [facility], 161, cm, [...] Start Date: 02/02/22 Status: Ordered Vitamin D 63107 iu oral capsule 50,000 International_Units, By Mouth, [...] Associate Professional Member Role: PCP Address: Address: [address] [place] [address]- Care Team Related Persons Name: ALBA TATE Address: home [address] [place] [address]
--- OUTSIDE RECORDS SUMMARY | 2023-11-15 15:32 | XMS_ITS | Continuity of Care Document ---
Author Organization [facility] Riccardo Ordonez Lalit lt Address [address] [place] [address]- Care Team Providers Care Line Cleaner Name Role Phone Dionicio ANTON, Lucy Yanez Primary Care Physician [place] [facility] [place] 08/09/21 - 08/16/21 [facility] Riccardo Ordonez Adult [address] [place] [address]- Encounter Diagnosis Diarrhea(Discharge Diagnosis) - 08/09/21 Attending Physician: Lucy Greenberg NP Allergies, Adverse [...] 03/08/21 9:39:00 EDT, Route to Pharmacy Electronically, [facility]/pharmacy #[id number], 161.5, cm, 12/30/20 11:09:00 [...] Refills, Maintenance, 08/16/21 16:06:00 EST, ER Tablet, [facility]/pharmacy #[id number], Partial fill upon patient [...] Required Details Start Date: 05/06/19 Status: Ordered [place]-3 oral capsule See Instructions, one daily, 0 [...] Diagnosis Diagnosis Type Effective Dates Health Status Clini rodrigo Service Informant Diarrhea Discharge Diagnosis 08/09/21 Vital Signs Most recent to oldest [Reference Range]: 1 Height 161.5 cm (08/09/21 8:13 AM) Social History Social History Type Response Smoking Status Former smoker, quit more than 30 days ago entered on: 05/16/19 Sex
--- OUTSIDE RECORDS SUMMARY | 2023-11-15 15:32 | XMS_ITS | Continuity of Care Document ---
Author Organization [facility] Address [address] [place] [address]- Care Team Providers Care Concrete Finishing Machine Operator Name Role Phone Dionicio ANTON, Lucy Yanez Primary Care Physician [phone] Encounter [facility] [place] Date(s): 07/29/22 - 08/28/22 [facility] [address] [place] [address]- Attending Physician: Damián Turcios Admitting Physician: AdmDamián [...] 0 Refills, Maintenance, 07/17/22 15:34:00 EST, [facility], 161.3, cm, 07/15/22 9:49:00 EST, Height, 88, kg, 02/02/22 13:19:00 EDT, Dry Weight Start Date: 07/17/22 Status: Ordered glipiZIDE 5 mg oral tablet 15 mg, 3, tablet, By Mouth, Daily, # 270 tablet, Refills 1, Tot. Refills 1, Maintenance, 07/22/22 14:06:00 EST, Route to Pharmacy Electronically, [facility], Partial fill upon patient request if [...] tablet, Refills 1, Route to Pharmacy Electronically, [facility] 133[facility], 161.5, cm, 08/16/21 14:16:00 EST, Height Start [...] 10:55:00 EDT Start Date: 02/21/20 Status: Ordered [place]-3 oral capsule See Instructions, one daily, 0 [...] Personnel Name: Dionicio ANTON, Lucy Yanez Position: [facility] PCO Associate Professional Member Role: PCP Address: Address: [address] [place] [address]- Care Team Related Persons Name: ALBA TATE Address: home [address] [place] [address]
--- OUTSIDE RECORDS SUMMARY | 2023-11-15 15:32 | XMS_ITS | Continuity of Care Document ---
Author Organization [facility] Leisa Dickerson n's [facility] Address [address], [address] [place] [address]- Care Team Providers Care Fire Boss Name Role Phone Dionicio ANTON, Lucy Yanez Primary Care Physician [phone] [place] [facility] [id number] Date(s): 06/01/22 - 09/29/22 [facility] Leisa Mcghees [facility] [address], [address] [place] [address]- Attending Physician: Jenny Gillespie MD Admitting Physician: [...] Refills, Maintenance, 09/03/22 19:13:00 EST, Tablet, [id number], Partial fill upon patient request [...] 11:56:00 EST, Route to Pharmacy Electronically, [id number], Partial fill upon patient request [...] Route to Pharmacy Electronically, [facility] 1959[facility], 161.5, cm, 08/16/21 14:16:00 EST, Height Start [...] 10:55:00 EDT Start Date: 02/21/20 Status: Ordered Wind[place]-3 oral capsule See Instructions, one daily, 0 [...] 1 Refills, Maintenance, 09/08/22 10:29:00 EST, [facility], [...] Start Date: 02/02/22 Status: Ordered Vitamin D 72837 iu oral capsule 50,000 International_Units, By Mouth, [...] Professional Member Role: PCP Address: Address: [address] [place] [address]- Care Team Related Persons Name: ALBA TATE Address: home [address] [place] [address]
--- OUTSIDE RECORDS SUMMARY | 2023-11-15 15:32 | XMS_ITS | Continuity of Care Document ---
Author Organization [facility] Riccardo Ordonez Lalit lt Address [address] [place] [address]- Care Team Providers Care Seismograph Supervisor Name Role Phone Dionicio ANTON, Lucy Yanez Primary Care Physician [phone] Encounter [facility] Date(s): 07/27/22 - 08/26/22 [facility] Riccardo Ordonez Adult [address] [place] [address]- Allergies, Adverse Reactions, Alerts Substance Reaction Severity [...] 14:06:00 EST, [facility] to Pharmacy Electronically, [facility] [...] tablet, 3 Refills, 10/11/21 11:14:00 EDT, [facility], 161.5, cm, 10/11/21 10:53:00 EDT, Height Start Date: 10/11/21 Status: Ordered loratadine 10 mg oral tablet 1, tablet, By Mouth, Daily, # 90 tablet, Refills 1, Route to Pharmacy Electronically, [facility] 42107, 161.5, cm, 08/16/21 14:16:00 EST, Height Start Date: 09/03/21 Status: Ordered LORazepam 0.5 mg oral tablet 1 tablet = 0.5 mg, By Mouth, Daily at bedtime, for 30 days, # 30 tablet, 2 Refills, Acute 10/17/22 8:19:00 EDT, 07/19/22 8:19:00 EST, [facility], 161.3, cm, 07/15/22 9:49:00 EST, Height, 88, kg, 02/02/22 13:19:00 EDT, Dry Weight Start Date: 07/19/22 Stop Date: 10/17/22 Status: Ordered losartan 50 mg oral tablet 1 tablet, By Mouth, Daily, # 90 tablet, 3 Refills, [facility], 161.5, cm, 11/11/21 12:28:00 EDT, Height Start Date: 01/19/22 Status: Ordered Magnesium Magnesium, 0 Refills, Maintenance, 02/02/22 13:23:00 EDT Start Date: 02/02/22 Status: Ordered Multivitamin Daily, 0 Refills, Maintenance, 02/21/20 10:55:00 EDT Start Date: 02/21/20 Status: Ordered [place]-3 oral capsule See Instructions, one daily, 0 [...] Start Date: 02/02/22 Status: Ordered Vitamin D 10071 iu oral capsule 50,000 International_Units, By Mouth, [...] Professional Member Role: PCP Address: Address: [address] [place] [address]- Care Team Related Persons Name: ALBA TATE Address: home [address] [place] [address]
--- OUTSIDE RECORDS SUMMARY | 2023-11-15 15:32 | XMS_ITS | Continuity of Care Document ---
Author Organization [facility] Riccardo Ordonez Lalit lt Address [address] [place] [address]- Care Team Providers Care Maintainability Engineer Name Role Phone Dionicio ANTON, Lucy Yanez Primary Care Physician [phone] [place] [facility] [place](s): 03/22/22 - 04/21/22 [facility] Riccardo Ordonez Adult [address] [place] [address]- Allergies, Adverse Reactions, Alerts Substance Reaction Severity [...] tablet, Refills 1, Route to Pharmacy Electronically, [facility] 17099, 161.5, cm, 08/16/21 14:16:00 EST, Height Start [...] 10:55:00 EDT Start Date: 02/21/20 Status: Ordered [place]-3 oral capsule See Instructions, one daily, 0 [...] Start Date: 02/02/22 Status: Ordered Vitamin D 08187 iu oral capsule 50,000 International_Units, By Mouth, [...] Name: Dionicio ANTON, Lucy Yanez Address: Address: [address] [place] [id number]
--- OUTSIDE RECORDS SUMMARY | 2023-11-15 15:32 | XMS_ITS | Continuity of Care Document ---
Author Organization [facility] José Luis Lalit lt Address [address] [place] [address]- Care Team Providers Care Senior Etl Developer Name Role Phone Dionicio ANTON, Lucy Yanez Primary Care Physician [phone] Encounter [facility] [place] Date(s): 01/11/21 - 02/10/21 [facility] José Luis Adult [address] [place] [address]- Allergies, Adverse Reactions, Alerts Substance Reaction Severity [...] 03/05/21 7:26:00 EDT, 01/04/21 7:26:00 EDT, [facility], 161.5, cm, 12/30/20 11:09:00 EDT, [...] tablet, 3 Refills, Maintenance, 12/30/20 11:45:00EDT, [facility], 161.5, cm, 12/30/20 11:09:00 EDT, Height Start Date: 12/30/20 Stop Date: 12/25/21 Status: Ordered Multivitamin Daily, 0 Refills, Maintenance, 02/21/20 10:55:00 EDT Start Date: 02/21/20 Status: Ordered Nexium Capsule See Instructions, 22 mg 1 every other day, Refills 0, Maintenance, 05/06/19 16:33:27 EDT, Instructions Replace Required Details Start Date: 05/06/19 Status: Ordered [place]-3 oral capsule See Instructions, one daily, 0 [...]
--- OUTSIDE RECORDS SUMMARY | 2023-11-15 15:32 | XMS_ITS | Continuity of Care Document ---
Author Organization [facility] Riccardo Ordonez Lalit lt Address [address] [place] [address]- Care Team Providers Care Construction Consultant Name Role Phone Dionicio ANTON, Lucy Yanez Primary Care Physician [place] [facility] [place] 03/11/20 - 04/10/20 [facility] Adult [address] [place] [address]- [facility] Allergies, Adverse Reactions, Alerts Substance [...] 11:31:00 EDT, Route to Pharmacy Electronically, [facility], 161.5, cm, 01/07/20 15:02:00 EDT, Height Start Date: 01/14/20 Status: Ordered metFORMIN 500 mg oral tablet, extended release 1 tablet = 500 mg, By Mouth, 2 times a day, replace short acting, # 180 tablet, 3 Refills, Maintenance, 01/14/20 11:32:00 EDT, [facility], 161.5, cm, 01/07/20 15:02:00 EDT, Height Start Date: 01/14/20 Status: Ordered Multivitamin Daily, 0 Refills, Maintenance, 02/21/20 10:55:00 EDT Start Date: 02/21/20 Status: Ordered Nexium Capsule See Instructions, 22 mg 1 every other day, Refills 0, Maintenance, 05/06/19 16:33:27 EDT, Instructions Replace Required Details Start Date: 05/06/19 Status: Ordered [place]-3 oral capsule See Instructions, one daily, 0 [...]
--- OUTSIDE RECORDS SUMMARY | 2023-11-15 15:32 | XMS_ITS | Continuity of Care Document ---
Author Organization [facility] José Luis Lalit lt Address [address] [place] [address]- Care Team Providers Care Nuclear Unit Operator Name Role Phone Dionicio ANTON, Lucy Yanez Primary Care Physician [place] [facility] [place](s[place] 08/17/21 - 09/16/21 [facility] Adult [address] [place] [address]- Allergies, Adverse Reactions, Alerts Substance Reaction Severity [...] Acute 09/23/21 8:36:00 EST, 09/16/21 8:36:00 EST, [facility]/pharmacy #[id number], Partial fill upon [...] tablet, Refills 1, Route to Pharmacy Electronically, [facility] 01592, 161.5, cm, 08/16/21 14:16:00 EST, Height Start [...] Required Details Start Date: 05/06/19 Status: Ordered [place]-3 oral capsule See Instructions, one daily, 0 [...]
--- OUTSIDE RECORDS SUMMARY | 2023-11-15 15:32 | XMS_ITS | Continuity of Care Document ---
Author Organization [facility] Riccardo Ordonez Lalit lt Address [address] [place] [address]- Care Team Providers Care Candy Department Manager Name Role Phone Dionicio ANTON, Lucy Yanez Primary Care Physician [phone] Encounter [facility] Date(s): 07/27/22 - 08/26/22 [facility] Riccardo Ordonez Adult [address] [place] [address]- Allergies, Adverse Reactions, Alerts Substance Reaction Severity [...] 07/22/22 14:06:00 EST, Route to Pharmacy Electronically, [facility] [...] tablet, 3 Refills, 10/11/21 11:14:00 EDT, [facility], 161.5, cm, 10/11/21 10:53:00 EDT, Height Start Date: 10/11/21 Status: Ordered loratadine 10 mg oral tablet 1, tablet, By Mouth, Daily, # 90 tablet, Refills 1, Route to Pharmacy Electronically, [facility] 71890, 161.5, cm, 08/16/21 14:16:00 EST, Height Start Date: 09/03/21 Status: Ordered LORazepam 0.5 mg oral tablet 1 tablet = 0.5 mg, By Mouth, Daily at bedtime, for 30 days, # 30 tablet, 2 Refills, Acute 10/17/22 8:19:00 EDT, 07/19/22 8:19:00 EST, [facility], 161.3, cm, 07/15/22 9:49:00 EST, Height, 88, kg, 02/02/22 13:19:00 EDT, Dry Weight Start Date: 07/19/22 Stop Date: 10/17/22 Status: Ordered losartan 50 mg oral tablet 1 tablet, By Mouth, Daily, # 90 tablet, 3 Refills, [facility], 161.5, cm, 11/11/21 12:28:00 EDT, Height Start Date: 01/19/22 Status: Ordered Magnesium Magnesium, 0 Refills, Maintenance, 02/02/22 13:23:00 EDT Start Date: 02/02/22 Status: Ordered Multivitamin Daily, 0 Refills, Maintenance, 02/21/20 10:55:00 EDT Start Date: 02/21/20 Status: Ordered [place]-3 oral capsule See Instructions, one daily, [...] Start Date: 02/02/22 Status: Ordered Vitamin D 82429 iu oral capsule 50,000 International_Units, By Mouth, [...] Professional Member Role: PCP Address: Address: [address] [place] [address]- Care Team Related Persons Name: ALBA TATE Address: home [address] [place] [address]
--- OUTSIDE RECORDS SUMMARY | 2023-11-15 15:33 | XMS_ITS | Continuity of Care Document ---
Author Organization [facility] José Luis Lalit lt Address [address] [place] [address]- Care Team Providers Care Die Designer Name Role Phone Dionicio ANTON, Lucy Yanez Primary Care Physician En[place] [facility] [place] Date(s): 06/16/20 - 07/16/20 [facility] Riccardo Ordonez Adult [address] [place] [address]- Allergies, Adverse Reactions, Alerts Substance Reaction Severity [...] 1 Refills, Maintenance, 07/15/20 12:03:00 EST, [facility], 161.5, cm, 07/01/20 9:54:00 EST, Height Start Date: 07/15/20 Status: Ordered losartan 50 mg oral tablet 50 mg, 1, tablet, By Mouth, Daily, # 90 tablet, Refills 3, Tot. Refills 3, Maintenance, 01/14/20 11:31:00 EDT, Route to Pharmacy Electronically, [facility], 161.5, cm, 01/07/20 15:02:00 EDT, Height Start Date: 01/14/20 Status: Ordered metFORMIN 500 mg oral tablet, extended release See Instructions, take 2 in the morning and one in the evening, # 90 tablet, 3 Refills, Maintenance, 07/02/20 12:22:00 EST, [facility]/pharmacy #[id number], 161.5, cm, 07/01/20 9:54:00 EST, Height Start Date: 07/02/20 Status: Ordered Multivitamin Daily, 0 Refills, Maintenance, 02/21/20 10:55:00 EDT Start Date: 02/21/20 Status: Ordered Nexium Capsule See Instructions, 22 mg 1 every other day, Refills 0, Maintenance, 05/06/19 16:33:27 EDT, Instructions Replace Required Details Start Date: 05/06/19 Status: Ordered [place]-3 oral capsule See Instructions, one daily, 0 [...]
--- OUTSIDE RECORDS SUMMARY | 2023-11-15 15:33 | XMS_ITS | Continuity of Care Document ---
Author Organization [facility] José Luis Lalit lt Address [address] [place] [address]- Care Team Providers Care Electric Dolly Operator Name Role Phone Dionicio ANTON, Lucy Yanez Primary Care Physician [phone] [place] [facility] [place](s): 07/02/20 - 08/01/20 [facility] Adult [address] [place] [address]- Allergies, Adverse Reactions, Alerts Substance Reaction Severity [...] 1 Refills, Maintenance, 07/15/20 12:03:00 EST, [facility], 161.5, cm, 07/01/20 9:54:00 EST, Height Start Date: 07/15/20 Status: Ordered losartan 50 mg oral tablet 50 mg, 1, tablet, By Mouth, Daily, # 90 tablet, Refills 3, Tot. Refills 3, Maintenance, 01/14/20 11:31:00 EDT, Route to Pharmacy Electronically, [facility], 161.5, cm, 01/07/20 15:02:00 EDT, Height Start Date: 01/14/20 Status: Ordered metFORMIN 500 mg oral tablet, extended release See Instructions, take 2 in the morning and one in the evening, # 90 tablet, 3 Refills, Maintenance, 07/02/20 12:22:00 EST, [facility]/pharmacy #[id number], 161.5, cm, 07/01/20 9:54:00 EST, Height Start Date: 07/02/20 Status: Ordered Multivitamin Daily, 0 Refills, Maintenance, 02/21/20 10:55:00 EDT Start Date: 02/21/20 Status: Ordered Nexium Capsule See Instructions, 22 mg 1 every other day, Refills 0, Maintenance, 05/06/19 16:33:27 EDT, Instructions Replace Required Details Start Date: 05/06/19 Status: Ordered [place]-3 oral capsule See Instructions, one daily, 0 [...]
--- OUTSIDE RECORDS SUMMARY | 2023-11-15 15:33 | XMS_ITS | Continuity of Care Document ---
Author Organization [facility] José Luis Lalit lt Address [address] [place] [address]- Care Team Providers Care Sand Buffer Name Role Phone Dionicio ANTON, Lucy Yanez Primary Care Physician [phone] [place] [facility] [place](s): 12/31/20 - 01/30/21 [facility] Adult [address] [place] [address]- Allergies, Adverse Reactions, Alerts Substance Reaction Severity Status cefuroxime Active Macrobid 1, 2 Active Latex rash Active ALVAOR inhibitors muscle pain Active 1Reports Macrobid causes [...] 03/05/21 7:26:00 EDT, 01/04/21 7:26:00 EDT, [facility], 161.5, cm, 12/30/20 11:09:00 EDT, [...] tablet, 3 Refills, Maintenance, 12/30/20 11:45:00EDT, [facility], 161.5, cm, 12/30/20 11:09:00 EDT, Height Start Date: 12/30/20 Stop Date: 12/25/21 Status: Ordered Multivitamin Daily, 0 Refills, Maintenance, 02/21/20 10:55:00 EDT Start Date: 02/21/20 Status: Ordered Nexium Capsule See Instructions, 22 mg 1 every other day, Refills 0, Maintenance, 05/06/19 16:33:27 EDT, Instructions Replace Required Details Start Date: 05/06/19 Status: Ordered [place]-3 oral capsule See Instructions, one daily, 0 [...]
--- OUTSIDE RECORDS SUMMARY | 2023-11-15 15:33 | XMS_ITS | Continuity of Care Document ---
Author Organization [facility] José Luis Lalit lt Address [address] [place] [address]- Care Team Providers Care Feather Separator Name Role Phone Dionicio ANTON, Lucy Yanez Primary Care Physician [phone] [place] [facility] [place](s): 02/15/21 - 03/17/21 [facility] Riccardo Ordonez Adult [address] [place] [address]- Allergies, Adverse Reactions, Alerts Substance Reaction Severity [...] EDT, Route to Pharmacy Electronically, [facility]/pharmacy #[id number], 161.5, cm, 12/30/20 11:09:00 EDT, Height [...] Required Details Start Date: 05/06/19 Status: Ordered [place]-3 oral capsule See Instructions, one daily, 0 [...]
--- OUTSIDE RECORDS SUMMARY | 2023-11-15 15:33 | XMS_ITS | Continuity of Care Document ---
Author Organization [facility] Lalit Address [address] [place] [address]- Care Team Providers Care Diagnostic Sales Specialist Name Role Phone Dionicio ANTON, Lucy Yanez Primary Care Physician [phone] [place] [facility] [place] 02[place]20 [facility] Adult [address] [place] [address]- [facility] Allergies, Adverse Reactions, Alerts Substance [...] 04/10/20 8:57:00 EDT, 02/10/20 8:57:00 EDT, [facility], 161.5, cm, 01/07/20 15:02:00 EDT, [...] 3 Refills, Maintenance, 01/14/20 11:32:00 EDT, [facility], 161.5, cm, 01/07/20 15:02:00 EDT, Height Start Date: 01/14/20 Status: Ordered Multivitamin Daily, 0 Refills, Maintenance, 02/21/20 10:55:00 EDT Start Date: 02/21/20 Status: Ordered Nexium Capsule See Instructions, 22 mg 1 every other day, Refills 0, Maintenance, 05/06/19 16:33:27 EDT, Instructions Replace Required Details Start Date: 05/06/19 Status: Ordered [place]-3 oral capsule See Instructions, one daily, 0 [...]
--- OUTSIDE RECORDS SUMMARY | 2023-11-15 15:33 | XMS_ITS | Continuity of Care Document ---
Author Organization [facility] José Luis Lalit lt Address [address] [place] [address]- Care Team Providers Care Cement Handler Name Role Phone Dionicio ANTON, Lucy Yanez Primary Care Physician [place] [facility] [place] 07/20/22 - 08/19/[address] [facility] José Luis Adult [address] [place] [address]- Allergies, Adverse Reactions, Alerts Substance Reaction Severity [...] 0 Refills, Maintenance, 07/17/22 15:34:00 EST, [facility], 161.3, cm, 07/15/22 9:49:00 EST, Height, 88, kg, 02/02/22 13:19:00 EDT, Dry Weight Start Date: 07/17/22 Status: Ordered glipiZIDE 5 mg oral tablet 15 mg, 3, tablet, By Mouth, Daily, # 270 tablet, Refills 1, Tot. Refills 1, Maintenance, 07/22/22 14:06:00 EST, Route to Pharmacy Electronically, [facility], Partial fill upon patient request [...] tablet, Refills 1, Route to Pharmacy Electronically, [facility] 07616, 161.5, cm, 08/16/21 14:16:00 EST, Height Start Date: 09/03/21 Status: Ordered LORazepam 0.5 mg oral tablet 1 tablet = 0.5 mg, By Mouth, Daily at bedtime, for 30 days, # 30 tablet, 2 Refills, Acute 10/17/22 8:19:00 EDT, 07/19/22 8:19:00 EST, [facility], 161.3, cm, 07/15/22 9:49:00 EST, [...] 10:55:00 EDT Start Date: 02/21/20 Status: Ordered [place]-3 oral capsule See Instructions, one daily, 0 [...] EST, Route to Pharmacy Electronically, [facility]/pharmacy #[id number], Partial fill upon patient request if the [...] Start Date: 02/02/22 Status: Ordered Vitamin D 73081 iu oral capsule 50,000 International_Units, By Mouth, [...] Name: Dionicio ANTON, Lucy Yanez Position: [facility] PCO Associate Professional Member Role: PCP Address: Address: [address] [place] [address]- Care Team Related Persons Name: ALBA TATE Address: home [address] [place] [address]
--- OUTSIDE RECORDS SUMMARY | 2023-11-15 15:33 | XMS_ITS | Continuity of Care Document ---
Author Organization [facility] José Luis Lalit lt Address [address] [place] [address]- Care Team Providers Care Excelsior Machine Operator Name Role Phone Dionicio ANTON, Lucy Yanez Primary Care Physician Encounter [facility] [place] Date(s): 07/21/22 - 08/20/22 [facility] Riccardo Ordonez Adult [address] [place] [address]- Allergies, Adverse Reactions, Alerts Substance Reaction Severity Status cefuroxime Active beta blockers Active Latex rash Active metFORMIN Diarrhea Active Macrobid 1, 2 Active Bactrim Active ALVARO inhibitors muscle pain Active 1Reports [...] 0 Refills, Maintenance, 07/17/22 15:34:00 EST, [email or web address], 161.3, cm, 07/15/22 9:49:00 EST, Height, 88, kg, 02/02/22 13:19:00 EDT, Dry Weight Start Date: 07/17/22 Status: Ordered glipiZIDE 5 mg oral tablet 15 mg, 3, tablet, By Mouth, Daily, # 270 tablet, Refills 1, Tot. Refills 1, Maintenance, 07/22/22 14:06:00 EST, Route to Pharmacy Electronically, [facility], Partial fill upon [...] tablet, Refills 1, Route to Pharmacy Electronically, [id number], 161.5, cm, 08/16/21 14:16:00 EST, Height Start Date: 09/03/21 Status: Ordered LORazepam 0.5 mg oral tablet 1 tablet = 0.5 mg, By Mouth, Daily at bedtime, for 30 days, # 30 tablet, 2 Refills, Acute 10/17/22 8:19:00 EDT, 07/19/22 8:19:00 EST, [email or web address], 161.3, cm, 07/15/22 9:49:00 EST, [...] 10:55:00 EDT Start Date: 02/21/20 Status: Ordered [place]-3 oral capsule See Instructions, one daily, 0 [...] 08/10/22 9:47:00 EST, Route to Pharmacy Electronically, [facility]/pharmacy #[id number], Partial fill upon patient request if the [...] Start Date: 02/02/22 Status: Ordered Vitamin D 70380 iu oral capsule 50,000 International_Units, By Mouth, [...] Personnel Name: Dionicio ANTON, Lucy Yanez Position: [facility] PCO Associate Professional Member Role: PCP Address: Address: [address] [place] [id number]- Care Team Related Persons Name: ALBA TATE Address: home [address] [place] [address]
--- OUTSIDE RECORDS SUMMARY | 2023-11-15 15:33 | XMS_ITS | Continuity of Care Document ---
Author Organization [facility] Riccardo Ordonez Lalit lt Address [address] [place] [address]- Care Team Providers Care School Library Media Specialist Name Role Phone Dionicio ANTON, Lucy Yanez Primary Care Physician [phone] Encounter [facility] Date(s): 10/10/23 - 11/09/23 JOYCELYN Ordonez Adult [address] [place] [address]- Allergies, Adverse Reactions, Alerts Substance Reaction Severity [...] (oldterm) 1 04/19/23 Recor ded SARS-CoV-2 mRNA (awknmeg-zsbv-riahh) vax 2 04/19/23 Recorded influenza virus vaccine, inactivated 04/05/22 Boyd rded influenza virus vaccine, inactivated 04/28/21 Give n influenza virus vaccine, inactivated 04/22/20 Give n influenza virus vaccine, inactivated 04/09/19 Boyd rded influenza virus vaccine, inactivated 03/28/18 Boyd rded [id number] bivalent booster vax 04/02/22 Recorded SARS-CoV-2 (COVID-19) mRNA-1273 vaccine 11/25/21 R ecorded SARS-CoV-2 (COVID-19) mRNA BNT-162b2 vac 04/22/21 Recorded SARS-CoV-2 (COVID-19) mRNA BNT-162b2 vac 09/09/20 Given SARS-CoV-2 (COVID-19) mRNA BNT-162b2 vac 08/19/20 Recorded zoster vaccine, inactivated 04/06/19 Recorded 1Result Comment: [facility] in [place] 2Result Comment: [facility] [place] Medications Accu-Chek Paradise Glucose Meter See Instructions, [...] tablet, 1 Refills, Maintenance, 09/03/23 6:59:00 EST, [facility], 161, cm, 05/16/23 10:58:00 EDT, Height, 84.7, kg, 05/04/23 15:05:00 EDT, Dry Weight Start Date: 09/03/23 Status: Ordered esomeprazole 20 mg oral enteric coated capsule 1 capsule, By Mouth, Daily, # 90 capsule, 1 Refills, Maintenance, 11/09/23 21:34:00 [facility], [facility], cm, 09/19/23 7:29:00 EST, Height, [...] Date: 10/11/23 Status: Ordered Freestyle Ortiz 2 [place] Freestyle Ortiz 2 [place], See Instructions, # 1 each, Refills 0, [...] capsule, 1 Refills, Maintenance, 09/05/23 6:39:00 EST, [facility], 90, TAKE 1 CAPSULE [...] 10:55:00 EDT Start Date: 02/21/20 Status: Ordered [place]-3 oral capsule 0 Refills, Maintenance, 09/13/23 15:32:00 [...] tablet, 1 Refills, Maintenance, 09/05/23 23:33:00 EST, [facility], 161, cm, 05/16/23 10:58:00 EDT, Height, 84.7, kg, 05/04/23 15:05:00 EDT, Dry Weight Start Date: 09/05/23 Status: Ordered Synthroid 0.05 mg oral tablet 1 tablet, By Mouth, Daily, TAKE 2TABLETS ON MONDAY, # 102 tablet, 1 Refills, Maintenance, 11/09/23 21:33:00 EDT, [facility], 161, cm, 09/19/23 7:29:00 EST, Height, 82.7, kg, 09/13/23 14:43:00 EST, Dry Weight Start Date: 11/09/23 Status: Ordered timolol maleate 0.5% ophthalmic solution 1 drops, Eyes, Both, 2 times a day, # 10 mL, 0 Refills, Maintenance, 12/27/19 10:36:00 EDT, Solution Start Date: 12/27/19 Status: Ordered Vitamin D 89807 iu oral capsule 50,000 International_Units, By Mouth, [...] Team Personnel Name: Lucy Greenberg NP Position: [facility] PCO Associate Professional Member Role: PCP Address: Address: [address] [facility] [address]- Care Team Related Persons Name: ALBA TATE Address: home [address] [place] [address]
--- OUTSIDE RECORDS SUMMARY | 2023-11-15 15:33 | XMS_ITS | Continuity of Care Document ---
Author Organization [facility] Address [address] [place] [address]- Care Team Providers Care Freight And Passenger Agent Name Role Phone Dionicio ANTON, Lucy Yanez Primary Care Physician Encounter [facility] Date(s): 05/03/23 - 06/02/23 [facility] [address] [place] [address]- Attending Physician: Admtr, [id number] Admitting Physician: Admtr, [id number] Referring Physician: Admtr, [id number] Allergies, Adverse Reactions, [...] (oldterm) 1 04/19/23 Recor ded SARS-CoV-2 mRNA (ixskmnn-xpvl-kwoyb) vax 2 04/19/23 Recorded influenza virus vaccine, inactivated 04/05/22 Boyd rded influenza virus vaccine, inactivated 04/28/21 Give n influenza virus vaccine, inactivated 04/22/20 Give n influenza virus vaccine, inactivated 04/09/19 Boyd rded influenza virus vaccine, inactivated 03/28/18 Boyd rded [id number] bivalent booster vax 04/02/22 Recorded SARS-CoV-2 (COVID-19) mRNA-1273 vaccine 11/25/21 R ecorded SARS-CoV-2 (COVID-19) mRNA BNT-162b2 vac 04/22/21 Recorded SARS-CoV-2 (COVID-19) mRNA BNT-162b2 vac 09/09/20 Given SARS-CoV-2 (COVID-19) mRNA BNT-162b2 vac 08/19/20 Recorded zoster vaccine, inactivated 04/06/19 Recorded 1Result Comment: [facility] in [place] 2Result Comment: [facility] [place] Medications Accu-Chek Paradise Glucose Meter See Instructions, [...] 1 Refills, Maintenance, 04/09/23 17:21:00 EDT, [facility], 161, cm, 02/22/23 [...] 1 Refills, Maintenance, 04/06/23 8:40:00 EDT, [facility], 90, [...] Acute 07/20/23 6:50:00 EST, 04/21/23 6:50:00 EDT, [facility], 161, cm, 02/22/23 11:03:00 EDT, Height, 86.9, kg, 10/28/22 13:31:00 EDT, Dry Weight Start Date: 04/21/23 Stop Date: 07/20/23 Status: Ordered losartan 50 mg oral tablet 1 tablet, By Mouth, Daily, for 90 days, # 90 tablet, 1 Refills, Physician Stop 02/29/24 11:33:00 EDT, 09/02/23 11:33:00 EST, [facility], 161, cm, 02/22/23 11:03:00 [...] cm, 10/28/22 13:31:00 EDT, Height, 86.9, kg, 04/14/23 13:31:00 EDT, Dry Weight Start Date: 01/27/23 Status: Ordered timolol maleate 0.5% ophthalmic solution 1 drops, Eyes, Both, 2 times a day, # 10 mL, 0 Refills, Maintenance, 12/27/19 10:36:00 EDT, Solution Start Date: 12/27/19 Status: Ordered Vitamin D 71692 iu oral capsule 50,000 International_Units, By Mouth, [...] Personnel Name: Dionicio ANTON, Lucy Yanez Position: [facility] PCO Associate Professional Member Role: PCP Address: Address: [address] [place] [address]- Care Team Related Persons Name: ALBA TATE Address: home [address] [place] [address]
--- OUTSIDE RECORDS SUMMARY | 2023-11-15 15:33 | XMS_ITS | Continuity of Care Document ---
Author Organization [facility] José Luis Lalit lt Address [address] [place] [address]- Care Team Providers Care Loss Prevention Detective Name Role Phone Dionicio ANTON, Lucy Yanez Primary Care Physician Encounter [place] Date(s): 02/28/23 - 03/30/23 [facility] Adult [address] [place] [address]- Allergies, Adverse Reactions, Alerts Substance Reaction Severity [...] tablet, 0 Refills, Maintenance, 10/31/22 11:47:00 EDT, [id number], 161, cm, 10/28/22 13:31:00 EDT, Height, 86.9, [...] capsule, 3 Refills, Maintenance, 01/27/23 9:13:00 EDT, [facility], 161, cm, 10/28/22 13:31:00 EDT, Height, 86.9, kg, 10/28/22 13:31:00 EDT, DryWeight Start Date: 01/27/23 Status: Ordered GlipiZIDE XL 10 mg oral tablet, extended release 2 tablet = 20 mg, By Mouth, Daily, # 180 tablet, 1 Refills, Maintenance, 02/16/23 6:50:00 EDT, [facility], Partial fill upon patient request if the prescription is for a schedule II opioid drug., 161, cm, 02/07/23 11:15:00 EDT,... Start Date: 02/16/23 Status: Ordered hydrochlorothiazide-triamterene 25 mg-37.5 mg oral capsule 1 capsule, By Mouth, Daily, # 90 capsule, 1 Refills, Maintenance, 09/08/22 10:28:00 EST, [facility], 0, 1 capsule By Mouth Daily, 161, cm, 08/30/22 14:54:00 EST, Height, 88.9, kg, 08/30/22 14:54:00 EST, Dry Weight Start Date: 09/08/22 Status: Ordered loratadine 10 mg oral tablet 1, tablet, By Mouth, Daily, # 90 tablet, Refills 1, Route to Pharmacy Electronically, [facility], 161.5, cm, 08/16/21 14:16:00 EST, Height Start Date: 09/03/21 Status: Ordered losartan 50 mg oral tablet 1 tablet, By Mouth, Daily, for 90 days, # 90 tablet, 1 Refills, Physician Stop 02/29/24 11:33:00 EDT, 09/02/23 11:33:00 EST, [facility], 161, cm, 02/22/23 11:03:00 EDT, Height,86.9, kg, 10/28/22 13:31:00 EDT, Dry Weight Start Date: 09/02/23 Stop Date: 02/29/24 Status: Ordered losartan 50 mg oral tablet 1 tablet, By Mouth, Daily, for 90 days, # 90 tablet, 1 Refills, Physician Stop 09/02/23 11:33:00 EST, 03/06/23 11:33:00 EDT, [facility]/pharmacy #[id number], 161, cm, 02/22/23 11:03:00 [...] 10:55:00 EDT Start Date: 02/21/20 Status: Ordered [place]-3 oral capsule See Instructions, one daily, 0 [...] Start Date: 02/02/22 Status: Ordered Vitamin D 98329 iu oral capsule 50,000 International_Units, By Mouth, [...] Associate Professional Member Role: PCP Address: Address: [address] [place] [address]- Care Team Related Persons Name: ALBA TATE Address: home [address] [place] [address]
--- OUTSIDE RECORDS SUMMARY | 2023-11-15 15:33 | XMS_ITS | Continuity of Care Document ---
[facility] Address [address] [facility], [address] [place] [address]- Care Team Providers Care Supervisor Silvering Department Name Role Phone Dionicio ANTON, Lucy Yanez Primary Care Physician [phone] Encounter [facility] Date(s): 03/22/22 - 04/21/22 [facility] Leisa Mcghees [facility] [address] [place] [address]- Allergies, Adverse Reactions, Alerts Substance Reaction Severity [...] tablet, Refills 1, Route to Pharmacy Electronically, [facility], 161.5, cm, 08/16/21 14:16:00 EST, Height Start [...] 10:55:00 EDT Start Date: 02/21/20 Status: Ordered Ronan-3 oral capsule See Instructions, one daily, 0 [...] Start Date: 02/02/22 Status: Ordered Vitamin D 52830 iu oral capsule 50,000 International_Units, By Mouth, [...] Name: Dionicio ANTON, Lucy Yanez Address: Address: [address] [place] [id number]
--- OUTSIDE RECORDS SUMMARY | 2023-11-15 15:33 | XMS_ITS | Continuity of Care Document ---
Author Organization [facility] Riccardo Ordonez Lalit lt Address [address] [place] [address]- Care Team Providers Care Fern Picker Name Role Phone Dionicio ANTON, Lucy Yanez Primary Care Physician Encounter [facility] Date(s): 09/14/23 - 10/14/23 [facility] Riccardo Ordonez Adult [address] [place] [address]- Allergies, Adverse Reactions, Alerts Substance Reaction Severity [...] (oldterm) 1 04/19/23 Recor ded SARS-CoV-2 mRNA (mrsoxxu-rapz-ndetj) vax 2 04/19/23 Recorded influenza virus vaccine, inactivated 04/05/22 Boyd rded influenza virus vaccine, inactivated 04/28/21 Give n influenza virus vaccine, inactivated 04/22/20 Give n influenza virus vaccine, inactivated 04/09/19 Boyd rded influenza virus vaccine, inactivated 03/28/18 Boyd rded [id number] bivalent booster vax 04/02/22 Recorded SARS-CoV-2 (COVID-19) mRNA-1273 vaccine 11/25/21 R ecorded SARS-CoV-2 (COVID-19) mRNA BNT-162b2 vac 04/22/21 Recorded SARS-CoV-2 (COVID-19) mRNA BNT-162b2 vac 09/09/20 Given SARS-CoV-2 (COVID-19) mRNA BNT-162b2 vac 08/19/20 Recorded zoster vaccine, inactivated 04/06/19 Recorded 1Result Comment: [facility] in [place] 2Result Comment: [facility] [place] Medications Accu-Chek Paradise Glucose Meter See Instructions, [...] tablet, 1 Refills, Maintenance, 09/03/23 6:59:00 EST, [facility], 161, cm, 05/16/23 10:58:00 EDT, Height, 84.7, kg, 05/04/23 15:05:00 EDT, Dry Weight Start Date: 09/03/23 Status: Ordered esomeprazole 20 mg oral enteric coated capsule 1 capsule, By Mouth, Daily, # 90 capsule, 3 Refills, Maintenance, 01/27/23 9:13:00 EDT, [facility], 161, cm, 10/28/22 13:31:00 EDT, Height, [...] Date: 10/11/23 Status: Ordered Freestyle Ortiz 2 [place] Freestyle Ortiz 2 [place], See Instructions, # 1 each, Refills 0, [...] capsule, 1 Refills, Maintenance, 09/05/23 6:39:00 EST, [facility], 90, TAKE 1 CAPSULE DAILY, 161, cm, 05/16/23 10:58:00 EDT, Height, 84.7, kg, 05/04/23 15:05:00 EDT, Dry Weight Start Date: 09/05/23 Status: Ordered Januvia 50 mg oral tablet 1 tablet = 50 mg, By Mouth, Daily, # 90 tablet, 2 Refills, Maintenance, 10/11/23 7:41:00 EDT, Tablet, [facility], Partial fill upon [...] 09/05/23 23:33:00 EST, [facility], 161, cm, 05/16/23 10:58:00 EDT, Height, 84.7, kg, 05/04/23 15:05:00 EDT, Dry Weight Start Date: 09/05/23 Status: Ordered Synthroid 0.05 mg oral tablet 1 tablet, By Mouth, Daily, TAKE 2TABLETS ON MONDAY, # 102 tablet, 1 Refills, Maintenance, 06/20/23 10:22:00 EST, [facility], 161, cm, 05/16/23 10:58:00 EDT, Height, 84.7, kg, 05/04/23 15:05:00 EDT, Dry Weight Start Date: 06/20/23 Status: Ordered timolol maleate 0.5% ophthalmic solution 1 drops, Eyes, Both, 2 times a day, # 10 mL, 0 Refills, Maintenance, 12/27/19 10:36:00 EDT, Solution Start Date: 12/27/19 Status: Ordered Vitamin D 81650 iu oral capsule 50,000 International_Units, By Mouth, [...] Team Personnel Name: Lucy Greenberg NP Position: [facility] PCO Associate Professional Member Role: PCP Address: Address: [address] [facility] [place] [address]- Care Team Related Persons Name: ALBA TATE Address: home [address] [place] [address]
--- OUTSIDE RECORDS SUMMARY | 2023-11-15 15:33 | XMS_ITS | Continuity of Care Document ---
Author Organization [facility] Riccardo Ordonez Lalit lt Address [address] [place] [address]- Care Team Providers Care Auto Fleet Maintenance Manager Name Role Phone Dionicio ANTON, Lucy Yanez Primary Care Physician En[place] [facility] Date(s): 12/31/21 - 01/30/22 [facility] Riccardo Ordonez Adult [address] [place] [address]- Allergies, Adverse Reactions, Alerts Substance Reaction Severity [...] tablet, Refills 1, Route to Pharmacy Electronically, [facility], 161.5, cm, 08/16/21 14:16:00 EST, Height Start [...] Required Details Start Date: 05/06/19 Status: Ordered [place]-3 oral capsule See Instructions, one daily, 0 [...]
--- OUTSIDE RECORDS SUMMARY | 2023-11-15 15:33 | XMS_ITS | Continuity of Care Document ---
Author Organization [facility] José Luis Lalit lt Address [address] [place] [address]- Care Team Providers Care House Servant Name Role Phone Dionicio ANTON, Lucy Yanez Primary Care Physician [place] [facility] Date(s): 07/19/23 - 08/18/23 [facility] José Luis Adult [address] [place] [address]- Allergies, Adverse Reactions, Alerts Substance Reaction Severity [...] (oldterm) 1 04/19/23 Recor ded SARS-CoV-2 mRNA (mdhbifn-eslv-vetlb) vax 2 04/19/23 Recorded influenza virus vaccine, inactivated 04/05/22 Boyd rded influenza virus vaccine, inactivated 04/28/21 Give n influenza virus vaccine, inactivated 04/22/20 Give n influenza virus vaccine, inactivated 04/09/19 Boyd rded influenza virus vaccine, inactivated 03/28/18 Boyd rded [id number] bivalent booster vax 04/02/22 Recorded SARS-CoV-2 (COVID-19) mRNA-1273 vaccine 11/25/21 R ecorded SARS-CoV-2 (COVID-19) mRNA BNT-162b2 vac 04/22/21 Recorded SARS-CoV-2 (COVID-19) mRNA BNT-162b2 vac 09/09/20 Given SARS-CoV-2 (COVID-19) mRNA BNT-162b2 vac 08/19/20 Recorded zoster vaccine, inactivated 04/06/19 Recorded 1Result Comment: [facility] in [place] 2Result Comment: [facility] [place] Medications Accu-Chek Paradise Glucose Meter See Instructions, # 1 each, Refills 1, Tot. Refills 1, Maintenance, To check blood sugar twice daily. E11.9 DM II, 01/28/21 14:27:00 EDT, Supply Start Date: 01/28/21 Status: Ordered Accu-Chek Paraid[place] Plus Test Strips See Instructions, # 100 [...] capsule, 3 Refills, Maintenance, 01/27/23 9:13:00 EDT, [facility], 161, cm, 10/28/22 13:31:00 EDT, Height, 86.9, kg, 10/28/22 13:31:00 EDT, DryWeight Start Date: 01/27/23 Status: Ordered GlipiZIDE XL 10 mg oral tablet, extended release 2 tablet = 20 mg, By Mouth, Daily, # 180 tablet, 3 Refills, Maintenance, 06/22/23 6:47:00 EST, [facility], Partial fill upon patient [...] Stop 02/29/24 11:33:00 EDT, 09/02/23 11:33:00 EST, [facility], 161, cm, 02/22/23 11:03:00 [...] Start Date: 12/27/19 Status: Ordered Vitamin D 30968 iu oral capsule 50,000 International_Units, By Mouth, [...] team information Care Team Personnel Name: Dionicio ANTNO, Lucy Yanez Position: [facility] PCO Associate Professional Member Role: PCP Address: Address: [address] [place] [address]- Care Team Related Persons Name: ALBA TATE Address: [address] [place] [address]
--- OUTSIDE RECORDS SUMMARY | 2023-11-15 15:33 | XMS_ITS | Continuity of Care Document ---
Author Organization [facility] Riccardo Ordonez Lalit lt Address [address] [place] [address]- Care Team Providers Care Acid Tester Name Role Phone Dionicio ANTON, Lucy Yanez Primary Care Physician [place] [facility] [place] 03/10/20 - 04/09/20 [facility] Adult [address] [place] [address]- [facility] Allergies, Adverse Reactions, Alerts Substance Reaction Severity [...] Refills, Maintenance, 01/14/20 11:28:00 EDT, Capsule, [facility], 1 capsule By Mouth Daily, 161.5, cm, 01/07/20 15:02:00 EDT, Height Start Date: 01/14/20 Status: Ordered levothyroxine 0.05 mg oral tablet 1 tablet = 50 mcg, By Mouth, Daily, recheck tsh level in 6 weeks, # 90 tablet, 1 Refills, Maintenance, 02/10/20 12:07:00 EDT, [facility], 161.5, cm, 01/07/20 15:02:00 EDT, Height Start Date: 02/10/20 Stop Date: 03/11/20 Status: Ordered LORazepam 0.5 mg oral tablet 1 tablet = 0.5 mg, By Mouth, Daily at bedtime, for 30 days, # 30 tablet, 1 Refills, Acute 04/10/20 8:57:00 EDT, 02/10/20 8:57:00 EDT, [facility], 161.5, cm, 01/07/20 15:02:00 EDT, [...] 3 Refills, Maintenance, 01/14/20 11:32:00 EDT, [facility], 161.5, cm, 01/07/20 15:02:00 EDT, Height Start Date: 01/14/20 Status: Ordered Multivitamin Daily, 0 Refills, Maintenance, 02/21/20 10:55:00 EDT Start Date: 02/21/20 Status: Ordered Nexium Capsule See Instructions, 22 mg 1 every other day, Refills 0, Maintenance, 05/06/19 16:33:27 EDT, Instructions Replace Required Details Start Date: 05/06/19 Status: Ordered [place]-3 oral capsule See Instructions, one daily, 0 [...]
--- OUTSIDE RECORDS SUMMARY | 2023-11-15 15:33 | XMS_ITS | Continuity of Care Document ---
Author Organization [facility] José Luis Lalit lt Address [address] [place] [address]- Care Team Providers Care Lvn Name Role Phone Dionicio ANTON, Lucy Yanez Primary Care Physician [facility]counter [facility] Date(s): 04/21/23 - 05/21/23 [facility] Riccardo Ordonez Adult [address] [place] [address]- Allergies, Adverse Reactions, Alerts Substance Reaction Severity [...] (oldterm) 1 04/19/23 Recor ded SARS-CoV-2 mRNA (jpwvhbz-vmkp-zfubj) vax 2 04/19/23 Recorded influenza virus vaccine, inactivated 04/05/22 Boyd rded influenza virus vaccine, inactivated 04/28/21 Give n influenza virus vaccine, inactivated 04/22/20 Give n influenza virus vaccine, inactivated 04/09/19 Boyd rded influenza virus vaccine, inactivated 03/28/18 Boyd rded [id number] bivalent booster vax 04/02/22 Recorded SARS-CoV-2 (COVID-19) mRNA-1273 vaccine 11/25/21 R ecorded SARS-CoV-2 (COVID-19) mRNA BNT-162b2 vac 04/22/21 Recorded SARS-CoV-2 (COVID-19) mRNA BNT-162b2 vac 09/09/20 Given SARS-CoV-2 (COVID-19) mRNA BNT-162b2 vac 08/19/20 Recorded zoster vaccine, inactivated 04/06/19 Recorded 1Result Comment: [facility] in [place] 2Result Comment: [facility] [place] Medications Accu-Chek Paradise Glucose Meter See Instructions, [...] capsule, 3 Refills, Maintenance, 01/27/23 9:13:00 EDT, [facility], 161, cm, 10/28/22 13:31:00 EDT, Height, 86.9, kg, 10/28/22 13:31:00 EDT, DryWeight Start Date: 01/27/23 Status: Ordered GlipiZIDE XL 10 mg oral tablet, extended release 2 tablet = 20 mg, By Mouth, Daily, # 180 tablet, 1 Refills, Maintenance, 02/16/23 6:50:00 EDT, [facility], Partial fill upon [...] Acute 07/20/23 6:50:00 EST, 04/21/23 6:50:00 EDT, [facility], 161, cm, 02/22/23 11:03:00 EDT, Height, 86.9, kg, 10/28/22 13:31:00 EDT, Dry Weight Start Date: 04/21/23 Stop Date: 07/20/23 Status: Ordered losartan 50 mg oral tablet 1 tablet, By Mouth, Daily, for 90 days, # 90 tablet, 1 Refills, Physician Stop 02/29/24 11:33:00 EDT, 09/02/23 11:33:00 EST, [facility], 161, cm, 02/22/23 [...] Start Date: 12/27/19 Status: Ordered Vitamin D 16924 iu oral capsule 50,000 International_Units, By Mouth, [...] Personnel Name: Dionicio ANTON, Lucy Yanez Position: [facility] PCO Associate Professional Member Role: PCP Address: Address: [address] [place] [address]- Care Team Related Persons Name: ALBA TATE Address: [address] [place] [address]
--- OUTSIDE RECORDS SUMMARY | 2023-11-15 15:33 | XMS_ITS | Continuity of Care Document ---
Author Organization [facility] Riccardo Ordonez Lalit lt Address [address] [place] [address]- Care Team Providers Care Radiochemical Technician Name Role Phone Dionicio ANTON, Lucy Yanez Primary Care Physician [phone] Encounter [facility] Date(s): 07/29/22 - 08/28/22 [facility] Riccardo Ordonez Adult [address] [place] [address]- Allergies, Adverse Reactions, Alerts Substance Reaction Severity [...] 07/22/22 14:06:00 EST, Route to Pharmacy Electronically, [facility], Partial fill upon patient [...] tablet, 3 Refills, 10/11/21 11:14:00 EDT, [facility], 161.5, cm, 10/11/21 10:53:00 EDT, Height Start Date: 10/11/21 Status: Ordered loratadine 10 mg oral tablet 1, tablet, By Mouth, Daily, # 90 tablet, Refills 1, Route to Pharmacy Electronically, [facility], 161.5, cm, 08/16/21 14:16:00 EST, Height Start Date: 09/03/21 Status: Ordered LORazepam 0.5 mg oral tablet 1 tablet = 0.5 mg, By Mouth, Daily at bedtime, for 30 days, # 30 tablet, 2 Refills, Acute 10/17/22 8:19:00 EDT, 07/19/22 8:19:00 EST, [email or web address], 161.3, cm, 07/15/22 9:49:00 EST, Height, 88, kg, 02/02/22 13:19:00 EDT, Dry Weight Start Date: 07/19/22 Stop Date: 10/17/22 Status: Ordered losartan 50 mg oral tablet 1 tablet, By Mouth, Daily, # 90 tablet, 3 Refills, [facility], 161.5, cm, 11/11/21 12:28:00 EDT, Height Start Date: 01/19/22 Status: Ordered Magnesium Magnesium, 0 Refills, Maintenance, 02/02/22 13:23:00 EDT Start Date: 02/02/22 Status: Ordered Multivitamin Daily, 0 Refills, Maintenance, 02/21/20 10:55:00 EDT Start Date: 02/21/20 Status: Ordered Wixom-3 oral capsule See Instructions, one daily, 0 [...] Start Date: 02/02/22 Status: Ordered Vitamin D 45257 iu oral capsule 50,000 International_Units, By Mouth, [...] Personnel Name: Dionicio ANTON, Lucy Yanez Position: [facility] PCO Associate Professional Member Role: PCP Address: Address: [address] [place] [address]- Care Team Related Persons Name: ALBA TATE Address: [address] [place] [address]
--- OUTSIDE RECORDS SUMMARY | 2023-11-15 15:33 | XMS_ITS | Continuity of Care Document ---
Author Organization [facility] José Luis Lalit lt Address [address] [place] [address]- Care Team Providers Care Upholstery Technician Name Role Phone Dionicio ANTON, Lucy Yanez Primary Care Physician [phone] [place] [facility] [place] Date(s): 01/28/21 - 02/27/21 [facility] José Luis Adult [address] [place] [address]- Allergies, Adverse Reactions, Alerts Substance Reaction Severity [...] 03/05/21 7:26:00 EDT, 01/04/21 7:26:00 EDT, [facility], 161.5, cm, 12/30/20 11:09:00 EDT, Height Start Date: 01/04/21 Stop Date: 03/05/21 Status: Ordered losartan 50 mg oral tablet 50 mg, 1, tablet, By Mouth, Daily, # 90 tablet, Refills 3, Tot. Refills 3, Maintenance, 12/30/20 11:48:00 EDT, Route to Pharmacy Electronically, [facility], 161.5, cm, 12/30/20 11:09:00 EDT, Height Start Date: 12/30/20 Status: Ordered metFORMIN 500 mg oral tablet, extended release 1 tablet = 500 mg, By Mouth, 2 times a day, # 180 tablet, 3 Refills, Maintenance, 12/30/20 11:45:00EDT, [facility], 161.5, cm, 12/30/20 11:09:00 EDT, Height Start Date: 12/30/20 Stop Date: 12/25/21 Status: Ordered Multivitamin Daily, 0 Refills, Maintenance, 02/21/20 10:55:00 EDT Start Date: 02/21/20 Status: Ordered Nexium Capsule See Instructions, 22 mg 1 every other day, Refills 0, Maintenance, 05/06/19 16:33:27 EDT, Instructions Replace Required Details Start Date: 05/06/19 Status: Ordered Altus-3 oral capsule See Instructions, one daily, 0 [...]
--- OUTSIDE RECORDS SUMMARY | 2023-11-15 15:33 | XMS_ITS | Continuity of Care Document ---
Author Organization [facility] José Luis Lalit lt Address [address] [place] [address]- Care Team Providers Care Patent Leather Sorter Name Role Phone Dionicio ANTON, Lucy Yanez Primary Care Physician Encounter [facility] Date(s): 03/30/21 - 04/29/21 [facility] [place] Adult [address] [place] [address]- Allergies, Adverse Reactions, Alerts Substance Reaction Severity [...] 9:39:00 EDT, Route to Pharmacy Electronically, [id number], 161.5, cm, 12/30/20 11:09:00 EDT, [...] Required Details Start Date: 05/06/19 Status: Ordered Welaka-3 oral capsule See Instructions, one daily, 0 [...]
--- OUTSIDE RECORDS SUMMARY | 2023-11-15 15:33 | XMS_ITS | Continuity of Care Document ---
Author Organization [facility] José Luis Lalit lt Address [address] [place] [address]- Care Team Providers Care Restoration Ecologist Name Role Phone Dionicio ANTON, Lucy Yanez Primary Care Physician [place] [facility] Date(s): 10/13/22 - 10/20/22 [facility] [place] Adult [address] [place] [address]- Encounter Diagnosis Type II diabetes mellitus(Discharge Diagnosis) - 10/13/22 Hypothyroidism(Discharge Diagnosis) - 10/13/22 Benign essential hypertension(Discharge Diagnosis) - 10/13/22 Hypercholesterolemia(Discharge Diagnosis) - 10/13/22 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, estrogen receptor positive(Discharge Diagnosis) - 10/13/22 Cerumen impaction(Discharge Diagnosis) - 10/13/22 Intertrigo(Discharge Diagnosis) - 10/13/22 Shortness of breath(Discharge Diagnosis) - 10/13/22 Attending Physician: Lucy Greenberg NP Referring Physician: [...] 0 Refills, Maintenance, 09/03/22 19:13:00 EST, Tablet, [facility]/pharmacy #[id number], Partial fill upon patient [...] capsule, 0 Refills, Maintenance, 09/08/22 10:27:00 EST, [facility], 161, cm, 08/30/22 14:54:00 EST, Height, 88.9, kg, 02/14/23 14:54:00 EST, Dry Weight Start Date: 09/08/22 Status: Ordered glipiZIDE 5 mg oral tablet 15 mg, 3, tablet, By Mouth, Daily, for 90 days, # 270 tablet, Refills 1, Tot. Refills 1, Hard Stop 03/01/23 11:56:00 EDT, 09/02/22 11:56:00 EST, Route to Pharmacy Electronically, [facility]/pharmacy #[id number], Partial fill upon patient request if the prescriptio... Start Date: 09/02/22 Stop Date: 03/01/23 Status: Ordered glipiZIDE 5 mg oral tablet 15 mg, 3, tablet, By Mouth, Daily, # 270 tablet, Refills 1, Tot. Refills 1, Maintenance, 03/01/23 11:56:00 EDT, Route to Pharmacy Electronically, [facility], Partial fill upon [...] 102 tablet, 0 Refills, 09/08/22 10:27:00 EST, [facility], 161, cm, 08/30/22 14:54:00 EST, Height, 88.9, kg, 08/30/22 14:54:00 EST, Dry Weight Start Date: 09/08/22 Status: Ordered loratadine 10 mg oral tablet 1, tablet, By Mouth, Daily, # 90 tablet, Refills 1, Route to Pharmacy Electronically, [id number], 161.5, cm, 08/16/21 14:16:00 EST, Height Start Date: 09/03/21 Status: Ordered losartan 50 mg oral tablet 1 tablet, By Mouth, Daily, # 90 tablet, 3 Refills, 09/08/22 10:28:00 EST, [facility], 161, cm, 08/30/22 14:54:00 EST, Height, 88.9, kg, 08/30/22 14:54:00 EST, Dry Weight Start Date: 09/08/22 Status: Ordered Magnesium Magnesium, 0 Refills, Maintenance, 02/02/22 13:23:00 EDT Start Date: 02/02/22 Status: Ordered Multivitamin Daily, 0 Refills, Maintenance, 02/21/20 10:55:00 EDT Start Date: 02/21/20 Status: Ordered Morris-3 oral capsule See Instructions, one daily, 0 [...] Start Date: 02/02/22 Status: Ordered Vitamin D 08677 iu oral capsule 50,000 International_Units, By Mouth, [...] Informant Type II diabetes mellitus Discharge Diagnosis 10/13/22 Hypothyroidism Discharge Diagnosis 10/13/22 Benign essential hypertension Discharge Diagnosis 10/13/22 Hypercholesterolemia Discharge Diagnosis 10/13/22 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, estrogen receptor positive Discharge Diagnosis 10/13/22 Cerumen impaction Discharge Diagnosis 10/13/22 Intertrigo Discharge Diagnosis 10/13/22 Shortness of breath Discharge Diagnosis 10/13/22 Vital Signs Most recent to oldest [Reference Range]: 1 Height 161 cm (10/13/22 10:09 AM) Weight 87.1 kg (10/13/22 10:09 AM) Oxygen Saturation [94-100 %] 100 % (10/13/22 10:09 AM) Pulse Rate [55-90 bpm] 84 bpm (10/13/22 10:09 AM) Body Mass Index [18.5-24.99 kg/m2] 33.6 kg/m2 *>HHI* (10/13/22 10:09 AM) Blood Pressure [90-138/55-84 mm Hg] 134/ 83mm Hg (10/13/22 10:09 AM) Blood pressure sites Arm, left (10/13/22 10:09 AM) Weight Obtained Via Standing scale (10/13/22 10:09 AM) Social History Social History Type Response Smoking Status Former smoker, quit more than 30 days ago entered on: 05/16/19 Sex Patient Care team information Care Team Personnel Name: Dionicio ANTON, Lucy Yanez Position: S PCO Associate Professional Member Role: PCP Address: Address: [address] [place] [id number]- Care Team Related Persons Name: ALBA TATE Address: [address] [place] [address]
--- OUTSIDE RECORDS SUMMARY | 2023-11-15 15:33 | XMS_ITS | Continuity of Care Document ---
Author Organization [facility] José Luis Lalit lt Address [address] [place] [address]- Care Team Providers Care Blood Typer Name Role Phone Dionicio ANTON, Lucy Yanez Primary Care Physician [phone] Encounter [facility] Date(s): 12/06/22 - 01/05/23 [facility] Riccardo Ordonez Adult [address] [place] [address]- Allergies, Adverse Reactions, Alerts Substance Reaction Severity [...] 11:47:00 EDT, [facility], 161, cm, 10/28/22 13:31:00 EDT, Height, 86.9, [...] capsule, 0 Refills, Maintenance, 12/01/22 16:17:00 EDT, [facility], 161, cm, 10/28/22 13:31:00 EDT, Height, 86.9, kg, 10/28/22 13:31:00 EDT, Dry Weight Start Date: 12/01/22 Status: Ordered glipiZIDE 10 mg oral tablet, extended release 1 tablet = 10 mg, By Mouth, Daily, # 90 tablet, 1 Refills, Maintenance, 12/02/22 14:40:00 EDT, [facility], Partial [...] tablet, 0 Refills, Maintenance, 12/01/22 16:17:00 EDT, [facility] 22[facility], 161, cm, 10/28/22 13:31:00 EDT, Height, 86.9, kg, 10/28/22 13:31:00 EDT, Dry Weight Start Date: 12/01/22 Status: Ordered loratadine 10 mg oral tablet 1, tablet, By Mouth, Daily, # 90 tablet, Refills 1, Route to Pharmacy Electronically, [facility] 14458, 161.5, cm, 08/16/21 14:16:00 EST, Height Start [...] 10:55:00 EDT Start Date: 02/21/20 Status: Ordered Wann-3 oral capsule See Instructions, one daily, 0 [...] 1 Refills, Maintenance, 09/08/22 10:29:00 EST, [facility], 161, cm, 08/30/22 14:54:00 EST, [...] Start Date: 02/02/22 Status: Ordered Vitamin D 14057 iu oral capsule 50,000 International_Units, By Mouth, [...] Professional Member Role: PCP Address: Address: [address] [place] [id number]- Care Team Related Persons Name: ALBA TATE Address: home [address] [place] [address]
--- OUTSIDE RECORDS SUMMARY | 2023-11-15 15:33 | XMS_ITS | Continuity of Care Document ---
Author Organization [facility] Address [address], [address] [place] [address]- Care Team Providers Care Embossing Unit Operator Name Role Phone Dionicio ANTON, Lucy Yanez Primary Care Physician Encounter [facility] Date(s): 03/24/22 - 04/23/22 [facility] Leisa Mcghees [facility] [address], [address] [place] [address]- Allergies, Adverse Reactions, Alerts Substance Reaction Severity [...] tablet, Refills 1, Route to Pharmacy Electronically, [facility], 161.5, cm, 08/16/21 14:16:00 EST, Height Start [...] 10:55:00 EDT Start Date: 02/21/20 Status: Ordered Maben-3 oral capsule See Instructions, one daily, 0 [...] Start Date: 02/02/22 Status: Ordered Vitamin D 56325 iu oral capsule 50,000 International_Units, By Mouth, [...] Name: Dionicio ANTON, Lucy Yanez Address: Address: [address] [place] [id number]
--- OUTSIDE RECORDS SUMMARY | 2023-11-15 15:33 | XMS_ITS | Continuity of Care Document ---
Author Organization [facility] Riccardo Ordonez Lalit lt Address [address] [place] [address]- Care Team Providers Care Animal Care Supervisor Name Role Phone Dionicio ANTON, Lucy Yanez Primary Care Physician [facility]counter [facility] Date(s): 09/04/23 - 10/04/23 [facility] Riccardo Ordonez Adult [address] [place] [address]- Allergies, Adverse Reactions, Alerts Substance Reaction Severity [...] (oldterm) 1 04/19/23 Recor ded SARS-CoV-2 mRNA (jrougyo-hsyl-gwblt) vax 2 04/19/23 Recorded influenza virus vaccine, inactivated 04/05/22 Boyd rded influenza virus vaccine, inactivated 04/28/21 Give n influenza virus vaccine, inactivated 04/22/20 Give n influenza virus vaccine, inactivated 04/09/19 Boyd rded influenza virus vaccine, inactivated 03/28/18 Boyd rded [id number] bivalent booster vax 04/02/22 Recorded SARS-CoV-2 (COVID-19) mRNA-1273 vaccine 11/25/21 R ecorded SARS-CoV-2 (COVID-19) mRNA BNT-162b2 vac 04/22/21 Recorded SARS-CoV-2 (COVID-19) mRNA BNT-162b2 vac 09/09/20 Given SARS-CoV-2 (COVID-19) mRNA BNT-162b2 vac 08/19/20 Recorded zoster vaccine, inactivated 04/06/19 Recorded 1Result Comment: [facility] [place] 2Result Comment: [facility] [place] Medications Accu-Chek Paradise Glucose Meter See Instructions, [...] tablet, 0 Refills, Maintenance, 09/27/23 6:40:00 EDT, [facility]/pharmacy #[id number], Partial fill upon patient request if the prescription is for a schedule II opioid drug., 161, cm, 09/19/23 7:29:00 EST, Height, 82.7, kg,... Start Date: 09/27/23 Status: Ordered anastrozole 1 mg oral tablet 1 tablet, By Mouth, Daily, # 90 tablet, 1 Refills, Maintenance, 09/03/23 6:59:00 EST, [facility], 161, cm, 05/16/23 10:58:00 EDT, Height, 84.7, kg, 05/04/23 15:05:00 EDT, Dry Weight Start Date: 09/03/23 Status: Ordered esomeprazole 20 mg oral enteric coated capsule 1 capsule, By Mouth, Daily, # 90 capsule, 3 Refills, Maintenance, 01/27/23 9:13:00 EDT, [facility], 161, cm, 10/28/22 13:31:00 EDT, Height, [...] Date: 09/19/23 Status: Ordered Freestyle Ortiz 2 [place] Freestyle Ortiz 2 [place], See Instructions, # 1 each, Refills 0, [...] capsule, 1 Refills, Maintenance, 09/05/23 6:39:00 EST, [facility], 90, TAKE 1 CAPSULE DAILY, 161, cm, 05/16/23 10:58:00 EDT, Height, 84.7, kg, 05/04/23 15:05:00 EDT, Dry Weight Start Date: 09/05/23 Status: Ordered Januvia 50 mg oral tablet 1 tablet = 50 mg, By Mouth, Daily, # 30 tablet, 0 Refills, Maintenance, 09/27/23 12:50:00 EDT, Tablet, [facility]/pharmacy #[id number], Partial fill upon [...] 02/29/24 11:33:00 EDT, 09/02/23 11:33:00 EST, [facility], 161, cm, 02/22/23 11:03:00 EDT, Height,86.9, [...] 10:55:00 EDT Start Date: 02/21/20 Status: Ordered Belfry-3 oral capsule 0 Refills, Maintenance, 09/13/23 15:32:00 [...] 1 Refills, Maintenance, 09/05/23 23:33:00 EST, [facility], 161, cm, 05/16/23 10:58:00 EDT, Height, 84.7, kg, 05/04/23 15:05:00 EDT, Dry Weight Start Date: 09/05/23 Status: Ordered Synthroid 0.05 mg oral tablet 1 tablet, By Mouth, Daily, TAKE 2TABLETS ON MONDAY, # 102 tablet, 1 Refills, Maintenance, 06/20/23 10:22:00 EST, [facility], 161, cm, 05/16/23 10:58:00 EDT, Height, 84.7, kg, 05/04/23 15:05:00 EDT, Dry Weight Start Date: 06/20/23 Status: Ordered timolol maleate 0.5% ophthalmic solution 1 drops, Eyes, Both, 2 times a day, # 10 mL, 0 Refills, Maintenance, 12/27/19 10:36:00 EDT, Solution Start Date: 12/27/19 Status: Ordered Vitamin D 89960 iu oral capsule 50,000 International_Units, By Mouth, [...] Personnel Name: Dionicio ANTON, Lucy Yanez Position: [facility] PCO Associate Professional Member Role: PCP Address: Address: [address] [place] [address]- Care Team Related Persons Name: ALBA TATE Address: [address] [place] [address]
--- OUTSIDE RECORDS SUMMARY | 2023-11-15 15:33 | XMS_ITS | Continuity of Care Document ---
Author Organization [facility] Riccardo Ordonez Lalit lt Address [address] [place] [address]- Care Team Providers Care Licensed Bondsman Name Role Phone Dionicio ANTON, Lucy Yanez Primary Care Physician [facility] Date(s): 08/03/22 - 09/02/22 [facility] Riccardo Ordonez Adult [address] [place] [address]- Allergies, Adverse Reactions, Alerts Substance Reaction Severity [...] tablet, 3 Refills, 10/11/21 11:14:00 EDT, [facility], 161.5, cm, 10/11/21 10:53:00 EDT, Height Start Date: 10/11/21 Status: Ordered loratadine 10 mg oral tablet 1, tablet, By Mouth, Daily, # 90 tablet, Refills 1, Route to Pharmacy Electronically, [facility] 49805, 161.5, cm, 08/16/21 14:16:00 EST, Height Start Date: 09/03/21 Status: Ordered LORazepam 0.5 mg oral tablet 1 tablet = 0.5 mg, By Mouth, Daily at bedtime, for 30 days, # 30 tablet, 2 Refills, Acute 10/17/22 8:19:00 EDT, 07/19/22 8:19:00 EST, [facility], 161.3, cm, 07/15/22 9:49:00 EST, Height, 88, kg, 02/02/22 13:19:00 EDT, Dry Weight Start Date: 07/19/22 Stop Date: 10/17/22 Status: Ordered losartan 50 mg oral tablet 1 tablet, By Mouth, Daily, # 90 tablet, 3 Refills, [facility], 161.5, cm, 11/11/21 12:28:00 EDT, Height Start Date: 01/19/22 Status: Ordered Magnesium Magnesium, 0 Refills, Maintenance, 02/02/22 13:23:00 EDT Start Date: 02/02/22 Status: Ordered Multivitamin Daily, 0 Refills, Maintenance, 02/21/20 10:55:00 EDT Start Date: 02/21/20 Status: Ordered Hershey-3 oral capsule See Instructions, one daily, 0 [...] Start Date: 02/02/22 Status: Ordered Vitamin D 53906 iu oral capsule 50,000 International_Units, By Mouth, [...] Personnel Name: Dionicio ANTON, Lucy Yanez Position: [facility] PCO Associate Professional Member Role: PCP Address: Address: [address] [place] [address]- Care Team Related Persons Name: ALBA TATE Address: home [address] [place] [address]
--- OUTSIDE RECORDS SUMMARY | 2023-11-15 15:33 | XMS_ITS | Continuity of Care Document ---
Author Organization [facility] Riccardo Ordonez Lalit lt Address [address] [place] [address]- Care Team Providers Care Transmission Calibration Engineer Name Role Phone Dionicio ANTON, Lucy Yanez Primary Care Physician [facility] Date(s): 10/08/23 - 11/07/23 JOYCELYN Ordonez Adult [address] [place] [address]- Allergies, Adverse Reactions, Alerts Substance Reaction Severity [...] (oldterm) 1 04/19/23 Recor ded SARS-CoV-2 mRNA (jxdgink-mked-iszax) vax 2 04/19/23 Recorded influenza virus vaccine, inactivated 04/05/22 Boyd rded influenza virus vaccine, inactivated 04/28/21 Give n influenza virus vaccine, inactivated 04/22/20 Give n influenza virus vaccine, inactivated 04/09/19 Boyd rded influenza virus vaccine, inactivated 03/28/18 Boyd rded [id number] bivalent booster vax 04/02/22 Recorded SARS-CoV-2 (COVID-19) mRNA-1273 vaccine 11/25/21 R ecorded SARS-CoV-2 (COVID-19) mRNA BNT-162b2 vac 04/22/21 Recorded SARS-CoV-2 (COVID-19) mRNA BNT-162b2 vac 09/09/20 Given SARS-CoV-2 (COVID-19) mRNA BNT-162b2 vac 08/19/20 Recorded zoster vaccine, inactivated 04/06/19 Recorded 1Result Comment: [facility] in [place] 2Result Comment: [facility] [place] Medications Accu-Chek Paradise Glucose Meter See Instructions, [...] tablet, 1 Refills, Maintenance, 09/03/23 6:59:00 EST, [facility], 161, cm, 05/16/23 10:58:00 EDT, Height, 84.7, kg, 05/04/23 15:05:00 EDT, Dry Weight Start Date: 09/03/23 Status: Ordered esomeprazole 20 mg oral enteric coated capsule 1 capsule, By Mouth, Daily, # 90 capsule, 3 Refills, Maintenance, 01/27/23 9:13:00 EDT, [facility], 161, cm, 10/28/22 13:31:00 EDT, [...] Date: 10/11/23 Status: Ordered Freestyle Ortiz 2 [place] Freestyle Ortiz 2 [place], See Instructions, # 1 each, Refills 0, [...] capsule, 1 Refills, Maintenance, 09/05/23 6:39:00 EST, [facility], 90, TAKE 1 CAPSULE DAILY, 161, cm, 05/16/23 10:58:00 EDT, Height, 84.7, kg, 05/04/23 15:05:00 EDT, Dry Weight Start Date: 09/05/23 Status: Ordered Januvia 50 mg oral tablet 1 tablet = 50 mg, By Mouth, Daily, # 90 tablet, 2 Refills, Maintenance, 10/11/23 7:41:00 EDT, Tablet, [facility], Partial fill upon patient request [...] 02/29/24 11:33:00 EDT, 09/02/23 11:33:00 EST, [facility], 161, cm, 02/22/23 11:03:00 EDT, [...] 10:55:00 EDT Start Date: 02/21/20 Status: Ordered Alexandria-3 oral capsule 0 Refills, Maintenance, 09/13/23 15:32:00 [...] 09/05/23 23:33:00 EST, [facility], 161, cm, 05/16/23 10:58:00 EDT, Height, 84.7, kg, 05/04/23 15:05:00 EDT, Dry Weight Start Date: 09/05/23 Status: Ordered Synthroid 0.05 mg oral tablet 1 tablet, By Mouth, Daily, TAKE 2TABLETS ON MONDAY, # 102 tablet, 1 Refills, Maintenance, 06/20/23 10:22:00 EST, [facility], 161, cm, 05/16/23 10:58:00 EDT, Height, 84.7, kg, 05/04/23 15:05:00 EDT, Dry Weight Start Date: 06/20/23 Status: Ordered timolol maleate 0.5% ophthalmic solution 1 drops, Eyes, Both, 2 times a day, # 10 mL, 0 Refills, Maintenance, 12/27/19 10:36:00 EDT, Solution Start Date: 12/27/19 Status: Ordered Vitamin D 90361 iu oral capsule 50,000 International_Units, By Mouth, [...] Team Personnel Name: Lucy Greenberg NP Position: [facility] PCO Associate Professional Member Role: PCP Address: Address: [address] [facility] [place] [address]- Care Team Related Persons Name: ALBA TATE Address: home [address] [place] [address]
--- OUTSIDE RECORDS SUMMARY | 2023-11-15 15:33 | XMS_ITS | Continuity of Care Document ---
Author Organization [facility] José Luis Lalit lt Address [address] [place] [address]- Care Team Providers Care Paleology Teacher Name Role Phone Dionicio ANTON, Lucy Yanez Primary Care Physician [place] [facility] [place] 08/15/21 - 09/14/21 [facility] [place] Adult [address] [place] [address]- Allergies, Adverse Reactions, Alerts Substance Reaction Severity [...] tablet, Refills 1, Route to Pharmacy Electronically, [facility] 20449, 161.5, cm, 08/16/21 14:16:00 EST, Height Start Date: 09/03/21 Status: Ordered losartan 50 mg oral tablet 50 mg, 1, tablet, By Mouth, Daily, # 90 tablet, Refills 3, Tot. Refills 3, Maintenance, 12/30/20 11:48:00 EDT, Route to Pharmacy Electronically, [facility], 161.5, cm, 12/30/20 11:09:00 EDT, Height Start Date: 12/30/20 Status: Ordered Multivitamin Daily, 0 Refills, Maintenance, 02/21/20 10:55:00 EDT Start Date: 02/21/20 Status: Ordered Nexium 20 mg oral enteric coated capsule 1 capsule = 20 mg, By Mouth, Daily, # 90 capsule, 1 Refills, Maintenance, 09/13/21 9:37:00 EST, EC Capsule, [facility], Partial fill upon patient request if the prescription is fora schedule II opioid drug., 161.5, cm, 09/13/21 8:5... Start Date: 09/13/21 Status: Ordered Nexium Capsule See Instructions, 22 mg 1 every other day, Refills 0, Maintenance, 05/06/19 16:33:27 EDT, Instructions Replace Required Details Start Date: 05/06/19 Status: Ordered Porter-3 oral capsule See Instructions, one daily, 0 [...]
--- OUTSIDE RECORDS SUMMARY | 2023-11-15 15:33 | XMS_ITS | Continuity of Care Document ---
Author Organization [facility] Jos éLuis Lalit lt Address [address] [place] [address]- Care Team Providers Care Hydraulic Barker Operator Name Role Phone Dionicio ANTON, Lucy Yanez Primary Care Physician [phone] Encounter [facility] Date(s): 02/12/21 - 03/14/21 [facility] Riccardo Ordonez Adult [address] [place] [address]- Allergies, Adverse Reactions, Alerts Substance Reaction Severity [...] 9:39:00 EDT, Route to Pharmacy Electronically, [facility]/pharmacy #[id number], 161.5, cm, 12/30/20 11:09:00 EDT, [...] Required Details Start Date: 05/06/19 Status: Ordered [place]-3 oral capsule See Instructions, one daily, 0 [...]
--- OUTSIDE RECORDS SUMMARY | 2023-11-15 15:33 | XMS_ITS | Continuity of Care Document ---
Author Organization [facility] Riccardo Ordonez Lalit lt Address [address] [place] [address]- Care Team Providers Care Emergency Services Director Name Role Phone Dionicio ANTON, Lucy Yanez Primary Care Physician [facility] Date(s): 07/29/22 - 08/28/22 [facility] Riccardo Ordonez Adult [address] [place] [address]- Allergies, Adverse Reactions, Alerts Substance Reaction Severity [...] to Pharmacy Electronically, [facility], Partial fill upon patient [...] tablet, 3 Refills, 10/11/21 11:14:00 EDT, [facility], 161.5, cm, 10/11/21 10:53:00 EDT, Height Start Date: 10/11/21 Status: Ordered loratadine 10 mg oral tablet 1, tablet, By Mouth, Daily, # 90 tablet, Refills 1, Route to Pharmacy Electronically, [facility], 161.5, cm, 08/16/21 14:16:00 EST, Height Start Date: 09/03/21 Status: Ordered LORazepam 0.5 mg oral tablet 1 tablet = 0.5 mg, By Mouth, Daily at bedtime, for 30 days, # 30 tablet, 2 Refills, Acute 10/17/22 8:19:00 EDT, 07/19/22 8:19:00 EST, [facility], 161.3, cm, 07/15/22 9:49:00 EST, Height, 88, kg, 02/02/22 13:19:00 EDT, Dry Weight Start Date: 07/19/22 Stop Date: 10/17/22 Status: Ordered losartan 50 mg oral tablet 1 tablet, By Mouth, Daily, # 90 tablet, 3 Refills, [facility], 161.5, cm, 11/11/21 12:28:00 EDT, Height Start Date: 01/19/22 Status: Ordered Magnesium Magnesium, 0 Refills, Maintenance, 02/02/22 13:23:00 EDT Start Date: 02/02/22 Status: Ordered Multivitamin Daily, 0 Refills, Maintenance, 02/21/20 10:55:00 EDT Start Date: 02/21/20 Status: Ordered [place]-3 oral capsule See Instructions, one daily, 0 [...] Start Date: 02/02/22 Status: Ordered Vitamin D 99456 iu oral capsule 50,000 International_Units, By Mouth, [...] Personnel Name: Dionicio ANTON, Lucy Yanez Position: [facility] PCO Associate Professional Member Role: PCP Address: Address: [address] [place] [address]- Care Team Related Persons Name: ALBA TATE Address: [address] [place] [address]
--- OUTSIDE RECORDS SUMMARY | 2023-11-15 15:33 | XMS_ITS | Continuity of Care Document ---
Author Organization [facility] Riccardo Ordonez Lalit lt Address [address] [place] [address]- Care Team Providers Care Delivery Coordinator Name Role Phone Dionicio ANTON, Lucy Yanez Primary Care Physician [phone] Encounter [facility] Date(s): 09/20/23 - 10/20/23 JOYCELYN Ordonez Adult [address] [place] [address]- Allergies, Adverse Reactions, Alerts Substance Reaction Severity [...] (oldterm) 1 04/19/23 Recor ded SARS-CoV-2 mRNA (wltwhln-wsis-laocn) vax 2 04/19/23 Recorded influenza virus vaccine, inactivated 04/05/22 Boyd rded influenza virus vaccine, inactivated 04/28/21 Give n influenza virus vaccine, inactivated 04/22/20 Give n influenza virus vaccine, inactivated 04/09/19 Boyd rded influenza virus vaccine, inactivated 03/28/18 Boyd rded [id number] bivalent booster vax 04/02/22 Recorded SARS-CoV-2 (COVID-19) mRNA-1273 vaccine 11/25/21 R ecorded SARS-CoV-2 (COVID-19) mRNA BNT-162b2 vac 04/22/21 Recorded SARS-CoV-2 (COVID-19) mRNA BNT-162b2 vac 09/09/20 Given SARS-CoV-2 (COVID-19) mRNA BNT-162b2 vac 08/19/20 Recorded zoster vaccine, inactivated 04/06/19 Recorded 1Result Comment: [facility] [place] 2Result Comment: [facility] [place] Medications Accu-Chek Paradise Glucose Meter See Instructions, [...] tablet, 1 Refills, Maintenance, 09/03/23 6:59:00 EST, [facility], 161, cm, 05/16/23 10:58:00 EDT, Height, 84.7, kg, 05/04/23 15:05:00 EDT, Dry Weight Start Date: 09/03/23 Status: Ordered esomeprazole 20 mg oral enteric coated capsule 1 capsule, By Mouth, Daily, # 90 capsule, 3 Refills, Maintenance, 01/27/23 9:13:00 EDT, [facility], 161, cm, 10/28/22 13:31:00 EDT, [...] Date: 10/11/23 Status: Ordered Freestyle Ortiz 2 [place] Freestyle Ortiz 2 [place], See Instructions, # 1 each, Refills 0, [...] capsule, 1 Refills, Maintenance, 09/05/23 6:39:00 EST, [facility], 90, TAKE 1 CAPSULE DAILY, 161, cm, 05/16/23 10:58:00 EDT, Height, 84.7, kg, 05/04/23 15:05:00 EDT, Dry Weight Start Date: 09/05/23 Status: Ordered Januvia 50 mg oral tablet 1 tablet = 50 mg, By Mouth, Daily, # 90 tablet, 2 Refills, Maintenance, 10/11/23 7:41:00 EDT, Tablet, [facility], Partial fill upon patient request if [...] Stop 02/29/24 11:33:00 EDT, 09/02/23 11:33:00 EST, [facility], 161, cm, 02/22/23 11:03:00 EDT, Height,86.9, [...] 10:55:00 EDT Start Date: 02/21/20 Status: Ordered [place]-3 oral capsule 0 Refills, Maintenance, 09/13/23 15:32:00 [...] tablet, 1 Refills, Maintenance, 06/20/23 10:22:00 EST, [facility], 161, cm, 05/16/23 10:58:00 EDT, Height, 84.7, kg, 05/04/23 15:05:00 EDT, Dry Weight Start Date: 06/20/23 Status: Ordered timolol maleate 0.5% ophthalmic solution 1 drops, Eyes, Both, 2 times a day, # 10 mL, 0 Refills, Maintenance, 12/27/19 10:36:00 EDT, Solution Start Date: 12/27/19 Status: Ordered Vitamin D 94610 iu oral capsule 50,000 International_Units, By Mouth, [...] Team Personnel Name: Lucy Greenberg NP Position: [facility] PCO Associate Professional Member Role: PCP Address: Address: [address] [facility] [place] [address]- Care Team Related Persons Name: ALBA TATE Address: home [address] [place] [address]
--- OUTSIDE RECORDS SUMMARY | 2023-11-15 15:34 | XMS_ITS | Continuity of Care Document ---
Author Organization [facility] Lalit Address [address] [place] [address]- Care Team Providers Care Law Professor Name Role Phone Dionicio ANTON, Lucy Yanez Primary Care Physician Encounter [facility] Date(s): 02/21/20 - 02/28/20 [facility] Adult [address] [place] [address]- [facility] Encounter Diagnosis Hypomagnesemia(Discharge Diagnosis) - 02/21/20 Hypothyroidism(Discharge Diagnosis) - 02/21/20 Attending Physician: Lucy Greenberg NP Allergies, Adverse [...] 04/10/20 8:57:00 EDT, 02/10/20 8:57:00 EDT, [facility], 161.5, cm, 01/07/20 15:02:00 EDT, [...] Required Details Start Date: 05/06/19 Status: Ordered Edward-3 oral capsule See Instructions, one daily, 0 [...] Dates Health Status Cl inical Service Informant Hypomagnesemia Discharge Diagnosis 02/21/20 Hypothyroidism Discharge Diagnosis 02/21/20 Vital Signs Most recent to oldest [Reference Range]: 1 Height 161.5 cm (02/21/20 10:48 AM) Social History Social History Type Response Smoking Status Former smoker, quit more than 30 days ago entered on: 05/16/19 Sex
--- OUTSIDE RECORDS SUMMARY | 2023-11-15 15:34 | XMS_ITS | Continuity of Care Document ---
Author Organization [facility] José Luis Lalit lt Address [address] [place] [address]- Care Team Providers Care Investment Banking Associate Name Role Phone Dionicio ANTON, Lucy Yanez Primary Care Physician Encounter [facility] Date(s): 03/07/23 - 04/06/23 [facility] José Luis Adult [address] [place] [address]- Allergies, Adverse Reactions, Alerts Substance Reaction Severity [...] tablet, 0 Refills, Maintenance, 10/31/22 11:47:00 EDT, [id number], 161, cm, 10/28/22 13:31:00 EDT, Height, 86.9, [...] capsule, 3 Refills, Maintenance, 01/27/23 9:13:00 EDT, [facility], 161, cm, 10/28/22 13:31:00 EDT, Height, 86.9, kg, 10/28/22 13:31:00 EDT, DryWeight Start Date: 01/27/23 Status: Ordered GlipiZIDE XL 10 mg oral tablet, extended release 2 tablet = 20 mg, By Mouth, Daily, # 180 tablet, 1 Refills, Maintenance, 02/16/23 6:50:00 EDT, [facility], Partial fill upon patient request if the prescription is for a schedule II opioid drug., 161, cm, 02/07/23 11:15:00 EDT,... Start Date: 02/16/23 Status: Ordered hydrochlorothiazide-triamterene 25 mg-37.5 mg oral capsule 1 capsule, By Mouth, Daily, # 90 capsule, 1 Refills, Maintenance, 04/06/23 8:40:00 EDT, [facility], 90, TAKE 1 CAPSULE DAILY, 161, cm, 02/22/23 11:03:00 EDT, Height, 86.9, kg, 10/28/22 13:31:00 EDT, Dry Weight Start Date: 04/06/23 Status: Ordered loratadine 10 mg oral tablet 1, tablet, By Mouth, Daily, # 90 tablet, Refills 1, Route to Pharmacy Electronically, [facility] STORE 95413, 161.5, cm, 08/16/21 14:16:00 EST, Height Start Date: 09/03/21 Status: Ordered losartan 50 mg oral tablet 1 tablet, By Mouth, Daily, for 90 days, # 90 tablet, 1 Refills, Physician Stop 02/29/24 11:33:00 EDT, 09/02/23 11:33:00 EST, [facility], 161, cm, 02/22/23 11:03:00 EDT, Height,86.9, kg, 10/28/22 13:31:00 EDT, Dry Weight Start Date: 09/02/23 Stop Date: 02/29/24 Status: Ordered losartan 50 mg oral tablet 1 tablet, By Mouth, Daily, for 90 days, # 90 tablet, 1 Refills, Physician Stop 09/02/23 11:33:00 EST, 03/06/23 11:33:00 EDT, [facility]/pharmacy #[id number], 161, cm, 02/22/23 11:03:00 [...] 10:55:00 EDT Start Date: 02/21/20 Status: Ordered [place]-3 oral capsule See Instructions, one daily, 0 [...] Start Date: 02/02/22 Status: Ordered Vitamin D 68112 iu oral capsule 50,000 International_Units, By Mouth, [...] Team Personnel Name: Lucy Greenberg NP Position: [facility] PCO Associate Professional Member Role: PCP Address: Address: [address] [place] [id number]- Care Team Related Persons Name: ALBA TATE Address: home [address] [place] [address]
--- OUTSIDE RECORDS SUMMARY | 2023-11-15 15:34 | XMS_ITS | Continuity of Care Document ---
Author Organization [facility] Riccardo Ordonez Lalit lt Address [address] [place] [address]- Care Team Providers Care Business And Services Instructor Name Role Phone Dionicio ANTON, Lucy Yanez Primary Care Physician [facility]counter [facility] Date(s): 10/09/23 - 11/08/23 [facility] Riccardo Ordonez Adult [address] [place] [address]- Allergies, Adverse Reactions, Alerts Substance Reaction Severity [...] (oldterm) 1 04/19/23 Recor ded SARS-CoV-2 mRNA (qltimqo-vkic-ajeov) vax 2 04/19/23 Recorded influenza virus vaccine, inactivated 04/05/22 Boyd rded influenza virus vaccine, inactivated 04/28/21 Give n influenza virus vaccine, inactivated 04/22/20 Give n influenza virus vaccine, inactivated 04/09/19 Boyd rded influenza virus vaccine, inactivated 03/28/18 Boyd rded [id number] bivalent booster vax 04/02/22 Recorded SARS-CoV-2 (COVID-19) mRNA-1273 vaccine 11/25/21 R ecorded SARS-CoV-2 (COVID-19) mRNA BNT-162b2 vac 04/22/21 Recorded SARS-CoV-2 (COVID-19) mRNA BNT-162b2 vac 09/09/20 Given SARS-CoV-2 (COVID-19) mRNA BNT-162b2 vac 08/19/20 Recorded zoster vaccine, inactivated 04/06/19 Recorded 1Result Comment: [facility] [place] 2Result Comment: [facility] [place] Medications Accu-Chek Paradise Glucose Meter See Instructions, [...] tablet, 1 Refills, Maintenance, 09/03/23 6:59:00 EST, [facility], 161, cm, 05/16/23 10:58:00 EDT, Height, 84.7, kg, 05/04/23 15:05:00 EDT, Dry Weight Start Date: 09/03/23 Status: Ordered esomeprazole 20 mg oral enteric coated capsule 1 capsule, By Mouth, Daily, # 90 capsule, 3 Refills, Maintenance, 01/27/23 9:13:00 EDT, [facility], 161, cm, 10/28/22 13:31:00 [...] Date: 10/11/23 Status: Ordered Freestyle Ortiz 2 [place] Freestyle Ortiz 2 [place], See Instructions, # 1 each, Refills 0, [...] capsule, 1 Refills, Maintenance, 09/05/23 6:39:00 EST, [facility], 90, TAKE 1 CAPSULE DAILY, 161, cm, 05/16/23 10:58:00 EDT, Height, 84.7, kg, 05/04/23 15:05:00 EDT, Dry Weight Start Date: 09/05/23 Status: Ordered Januvia 50 mg oral tablet 1 tablet = 50 mg, By Mouth, Daily, # 90 tablet, 2 Refills, Maintenance, 10/11/23 7:41:00 EDT, Tablet, [facility], Partial fill upon patient [...] Stop 02/29/24 11:33:00 EDT, 09/02/23 11:33:00 EST, [facility], 161, cm, 02/22/23 11:03:00 EDT, [...] 10:55:00 EDT Start Date: 02/21/20 Status: Ordered [place]-3 oral capsule 0 Refills, Maintenance, 09/13/23 15:32:00 [...] tablet, 1 Refills, Maintenance, 09/05/23 23:33:00 EST, [facility], 161, cm, 05/16/23 10:58:00 EDT, Height, 84.7, kg, 05/04/23 15:05:00 EDT, Dry Weight Start Date: 09/05/23 Status: Ordered Synthroid 0.05 mg oral tablet 1 tablet, By Mouth, Daily, TAKE 2TABLETS ON MONDAY, # 102 tablet, 1 Refills, Maintenance, 06/20/23 10:22:00 EST, [facility], 161, cm, 05/16/23 10:58:00 EDT, Height, 84.7, kg, 05/04/23 15:05:00 EDT, Dry Weight Start Date: 06/20/23 Status: Ordered timolol maleate 0.5% ophthalmic solution 1 drops, Eyes, Both, 2 times a day, # 10 mL, 0 Refills, Maintenance, 12/27/19 10:36:00 EDT, Solution Start Date: 12/27/19 Status: Ordered Vitamin D 90000 iu oral capsule 50,000 International_Units, By Mouth, [...] Professional Member Role: PCP Address: Address: [address] [facility] Adult [facility] [place] [address]- Care Team Related Persons Name: ALBA TATE Address: home [address] [place] [address]
--- OUTSIDE RECORDS SUMMARY | 2023-11-15 15:34 | XMS_ITS | Continuity of Care Document ---
Author Organization [facility] Riccardo Ordonez Lalit lt Address [address] [place] [address]- Care Team Providers Care Rail Car Maintenance Mechanic Name Role Phone Dionicio ANTON, uLcy Yanez Primary Care Physician [phone] [facility]counter [facility] Date(s): 10/12/23 - 11/11/23 [facility] Riccardo Ordonez Adult [address] [place] [address]- Allergies, Adverse Reactions, Alerts Substance Reaction Severity [...] (oldterm) 1 04/19/23 Recor ded SARS-CoV-2 mRNA (pceewvu-akfb-iezkv) vax 2 04/19/23 Recorded influenza virus vaccine, inactivated 04/05/22 Boyd rded influenza virus vaccine, inactivated 04/28/21 Give n influenza virus vaccine, inactivated 04/22/20 Give n influenza virus vaccine, inactivated 04/09/19 Boyd rded influenza virus vaccine, inactivated 03/28/18 Boyd rded [id number] bivalent booster vax 04/02/22 Recorded SARS-CoV-2 (COVID-19) mRNA-1273 vaccine 11/25/21 R ecorded SARS-CoV-2 (COVID-19) mRNA BNT-162b2 vac 04/22/21 Recorded SARS-CoV-2 (COVID-19) mRNA BNT-162b2 vac 09/09/20 Given SARS-CoV-2 (COVID-19) mRNA BNT-162b2 vac 08/19/20 Recorded zoster vaccine, inactivated 04/06/19 Recorded 1Result Comment: [facility] [place] 2Result Comment: [facility] [place] Medications Accu-Chek Paradise Glucose Meter See Instructions, [...] tablet, 1 Refills, Maintenance, 09/03/23 6:59:00 EST, [facility], 161, cm, 05/16/23 10:58:00 EDT, Height, 84.7, kg, 05/04/23 15:05:00 EDT, Dry Weight Start Date: 09/03/23 Status: Ordered esomeprazole 20 mg oral enteric coated capsule 1 capsule, By Mouth, Daily, # 90 capsule, 1 Refills, Maintenance, 11/09/23 21:34:00 EDT, [facility], 161, cm, 09/19/23 7:29:00 EST, [...] Date: 10/11/23 Status: Ordered Freestyle Ortiz 2 [place] Freestyle Ortiz 2 [place], See Instructions, # 1 each, Refills 0, [...] capsule, 1 Refills, Maintenance, 09/05/23 6:39:00 EST, [facility], 90, TAKE 1 CAPSULE DAILY, 161, cm, 05/16/23 10:58:00 EDT, Height, 84.7, kg, 05/04/23 15:05:00 EDT, Dry Weight Start Date: 09/05/23 Status: Ordered Januvia 50 mg oral tablet 1 tablet = 50 mg, By Mouth, Daily, # 90 tablet, 2 Refills, Maintenance, 10/11/23 7:41:00 EDT, Tablet, Pharmacy, Partial fill upon patient request if [...] 10:55:00 EDT Start Date: 02/21/20 Status: Ordered [place]-3 oral capsule 0 Refills, Maintenance, 09/13/23 15:32:00 [...] tablet, 1 Refills, Maintenance, 11/09/23 21:33:00 EDT, Pharmacy, 161, cm, 09/19/23 7:29:00 EST, Height, 82.7, kg, 09/13/23 14:43:00 EST, Dry Weight Start Date: 11/09/23 Status: Ordered timolol maleate 0.5% ophthalmic solution 1 drops, Eyes, Both, 2 times a day, # 10 mL, 0 Refills, Maintenance, 12/27/19 10:36:00 EDT, Solution Start Date: 12/27/19 Status: Ordered Vitamin D 66389 iu oral capsule 50,000 International_Units, By Mouth, [...] Team Personnel Name: Lucy Greenberg NP Position: [facility] PCO Associate Professional Member Role: PCP Address: Address: [address] [facility] [place] [address]- Care Team Related Persons Name: ALBA TATE Address: home [address] [place] [address]
--- OUTSIDE RECORDS SUMMARY | 2023-11-15 15:34 | XMS_ITS | Continuity of Care Document ---
Author Organization [facility] Riccardo Ordonez Lalit lt Address [address] [place] [address]- Care Team Providers Care Commander Police Reserves Name Role Phone Dionicio ANTON, Lucy Yanez Primary Care Physician [phone] [facility]counter [facility] Date(s): 07/28/22 - 08/27/22 [facility] Riccardo Ordonez Adult [address] [place] [address]- Allergies, Adverse Reactions, Alerts Substance Reaction Severity Status cefuroxime Active beta blockers Active Macrobid 1, 2 Active Bactrim Active metFORMIN Diarrhea Active ALVARO inhibitors muscle pain Active Latex [...] 14:06:00 EST, Route to Pharmacy Electronically, [facility], Partial fill upon [...] tablet, 3 Refills, 10/11/21 11:14:00 EDT, [facility], 161.5, cm, 10/11/21 10:53:00 EDT, Height Start Date: 10/11/21 Status: Ordered loratadine 10 mg oral tablet 1, tablet, By Mouth, Daily, # 90 tablet, Refills 1, Route to Pharmacy Electronically, [facility], 161.5, cm, 08/16/21 14:16:00 EST, Height Start Date: 09/03/21 Status: Ordered LORazepam 0.5 mg oral tablet 1 tablet = 0.5 mg, By Mouth, Daily at bedtime, for 30 days, # 30 tablet, 2 Refills, Acute 10/17/22 8:19:00 EDT, 07/19/22 8:19:00 EST, [facility], 161.3, cm, 07/15/22 9:49:00 EST, Height, 88, kg, 02/02/22 13:19:00 EDT, Dry Weight Start Date: 07/19/22 Stop Date: 10/17/22 Status: Ordered losartan 50 mg oral tablet 1 tablet, By Mouth, Daily, # 90 tablet, 3 Refills, [facility], 161.5, cm, 11/11/21 12:28:00 EDT, Height Start Date: 01/19/22 Status: Ordered Magnesium Magnesium, 0 Refills, Maintenance, 02/02/22 13:23:00 EDT Start Date: 02/02/22 Status: Ordered Multivitamin Daily, 0 Refills, Maintenance, 02/21/20 10:55:00 EDT Start Date: 02/21/20 Status: Ordered [place]-3 oral capsule See Instructions, one daily, 0 [...] Start Date: 02/02/22 Status: Ordered Vitamin D 65058 iu oral capsule 50,000 International_Units, By Mouth, [...] Professional Member Role: PCP Address: Address: [address] [place] [address]- Care Team Related Persons Name: ALBA TATE Address: home [address] [place] [address]
--- OUTSIDE RECORDS SUMMARY | 2023-11-15 15:34 | XMS_ITS | Continuity of Care Document ---
Author Organization [facility] José Luis Lalit lt Address [address] [place] [address]- Care Team Providers Care Computing Architect Name Role Phone Dionicio ANTON, Lucy Yanez Primary Care Physician Encounter [facility] Date(s): 10/28/22 - 11/27/22 [facility] [place] Adult [address] [place] [address]- Allergies, Adverse Reactions, Alerts Substance Reaction Severity [...] 0 Refills, Maintenance, 10/31/22 11:47:00 EDT, [facility] ST[facility], 161, cm, 10/28/22 13:31:00 EDT, Height, 86.9, [...] 3 Refills, Maintenance, 11/10/22 6:48:00 EDT, Tablet, [facility], Partial fill upon [...] 1, Route to Pharmacy Electronically, [facility]10, 161.5, cm, 08/16/21 14:16:00 EST, Height Start [...] 10:55:00 EDT Start Date: 02/21/20 Status: Ordered [place]-3 oral capsule See Instructions, one daily, 0 [...] 1 Refills, Maintenance, 09/08/22 10:29:00 EST, [facility], 161, cm, 08/30/22 14:54:00 EST, [...] Start Date: 02/02/22 Status: Ordered Vitamin D 78448 iu oral capsule 50,000 International_Units, By Mouth, [...] Associate Professional Member Role: PCP Address: Address: [address] [place] [address]- Care Team Related Persons Name: ALBA TATE Address: home [address] [place] [address]
--- OUTSIDE RECORDS SUMMARY | 2023-11-15 15:34 | XMS_ITS | Continuity of Care Document ---
Author Organization [facility] José Luis Lalit lt Address [address] [place] [address]- Care Team Providers Care Hatchery Attendant Name Role Phone Dionicio ANTON, Lucy Yanez Primary Care Physician Encounter [facility] Date(s): 07/22/22 - 08/21/22 [facility] José Luis Adult [address] [place] [address]- Allergies, Adverse Reactions, Alerts Substance Reaction Severity [...] 0 Refills, Maintenance, 07/17/22 15:34:00 EST, [facility], 161.3, cm, 07/15/22 9:49:00 EST, [...] tablet, Refills 1, Route to Pharmacy Electronically, [facility] [address]10[facility], 161.5, cm, 08/16/21 14:16:00 EST, Height Start Date: 09/03/21 Status: Ordered LORazepam 0.5 mg oral tablet 1 tablet = 0.5 mg, By Mouth, Daily at bedtime, for 30 days, # 30 tablet, 2 Refills, Acute 10/17/22 8:19:00 EDT, 07/19/22 8:19:00 EST, [facility], 161.3, cm, 07/15/22 9:49:00 EST, [...] 10:55:00 EDT Start Date: 02/21/20 Status: Ordered [place]-3 oral capsule See Instructions, one daily, 0 [...] 08/10/22 9:47:00 EST, Route to Pharmacy Electronically, [facility]/pharmacy #[id number], Partial fill upon patient request if the [...] Start Date: 02/02/22 Status: Ordered Vitamin D 29191 iu oral capsule 50,000 International_Units, By Mouth, [...] Personnel Name: Dionicio ANTON, Lucy Yanez Position: [facility] PCO Associate Professional Member Role: PCP Address: Address: [address] [place] [id number]- Care Team Related Persons Name: ALBA TATE Address: [address] [place] [address]
--- OUTSIDE RECORDS SUMMARY | 2023-11-15 15:34 | XMS_ITS | Continuity of Care Document ---
Author Organization [facility] Leisa Dickerson n's Group Address [address], [address] [place] [address]- Care Team Providers Care Hydrographer Name Role Phone Dionicio ANTON, Lucy Yanez Primary Care Physician Encounter [facility] Date(s): 12/17/21 - 01/16/22 [facility] Pinemadan Mcghees [facility] [address], [address] [place], [place] [address] Allergies, Adverse Reactions, Alerts Substance Reaction Severity [...] drug. Start Date: 08/09/21 Status: Ordered glipiZIDE 5 mg oral tablet, [...] tablet, Refills 1, Route to Pharmacy Electronically, [facility] STORE 73126, 161.5, cm, 08/16/21 14:16:00 EST, Height Start [...] Required Details Start Date: 05/06/19 Status: Ordered Santa Fe-3 oral capsule See Instructions, one daily, 0 [...]
--- OUTSIDE RECORDS SUMMARY | 2023-11-15 15:34 | XMS_ITS | Continuity of Care Document ---
Author Organization [facility] Riccardo Ordonez Lalit lt Address [address] [place] [address]- Care Team Providers Care Truck Driving Instructor Name Role Phone Dionicio ANTON, Lucy Yanez Primary Care Physician [phone] Encounter [facility] Date(s): 07/01/21 - 07/31/21 [facility] Riccardo Ordonez Adult [address] [place] [address]- Attending Physician: Admtr, Ar8 Admitting Physician: Admtr, Ar8 Referring Physician: Admtr, [...] Required Details Start Date: 05/06/19 Status: Ordered Elgin-3 oral capsule See Instructions, one daily, 0 [...]
--- OUTSIDE RECORDS SUMMARY | 2023-11-15 15:34 | XMS_ITS | Continuity of Care Document ---
Author Organization [facility] José Luis Lalit lt Address [address] [place] [address]- Care Team Providers Care Cargo Checker Name Role Phone Dionicio ANTON, Lucy Yanez Primary Care Physician Encounter [facility] Date(s): 05/29/23 - 06/28/23 [facility] José Luis Adult [address] [place] [address]- Allergies, Adverse Reactions, Alerts Substance Reaction Severity Status cefuroxime Active beta blockers Active Macrobid 1, 2 Active Bactrim Active Latex rash Active metFORMIN Diarrhea Active ALVARO inhibitors muscle pain Active 1Reports Macrobid causes inflammation in her lungs that presents as atypical pneumonia. 2inflammation of the lung Immunizations Given and Recorded Vaccine Date Status Refusal Reason pneumococcal 20-valent conjugate vaccine 06/09/23 Recorded RSV vaccine preF3, recombinant 05/28/23 Recorded Influenza Virus Vaccine (oldterm) 1 04/19/23 Recor ded SARS-CoV-2 mRNA ([id number]) vax 2 04/19/23 Recorded influenza virus vaccine, inactivated 04/05/22 Boyd rded influenza virus vaccine, inactivated 04/28/21 Give n influenza virus vaccine, inactivated 04/22/20 Give n influenza virus vaccine, inactivated 04/09/19 Boyd rded influenza virus vaccine, inactivated 03/28/18 Boyd rded [id number] bivalent booster vax 04/02/22 Recorded SARS-CoV-2 (COVID-19) mRNA-1273 vaccine 11/25/21 R ecorded SARS-CoV-2 (COVID-19) mRNA BNT-162b2 vac 04/22/21 Recorded SARS-CoV-2 (COVID-19) mRNA BNT-162b2 vac 09/09/20 Given SARS-CoV-2 (COVID-19) mRNA BNT-162b2 vac 08/19/20 Recorded zoster vaccine, inactivated 04/06/19 Recorded 1Result Comment: [facility] [place] 2Result Comment: [facility] [place] Medications Accu-Chek Paradise Glucose Meter See Instructions, [...] tablet, 1 Refills, Maintenance, 04/09/23 17:21:00 EDT, [facility], 161, cm, 02/22/23 [...] tablet, 3 Refills, Maintenance, 06/22/23 6:47:00 EST, [facility], Partial fill upon patient request if the prescription is for a schedule II opioid drug., 161, cm, 05/16/23 10:58:00 EDT,... Start Date: 06/22/23 Status: Ordered hydrochlorothiazide-triamterene 25 mg-37.5 mg oral capsule 1 capsule, By Mouth, Daily, # 90 capsule, 1 Refills, Maintenance, 04/06/23 8:40:00 EDT, [facility], 90, TAKE 1 [...] Acute 07/20/23 6:50:00 EST, 04/21/23 6:50:00 EDT, [facility], 161, cm, 02/22/23 11:03:00 EDT, Height, [...] Start Date: 12/27/19 Status: Ordered Vitamin D 91865 iu oral capsule 50,000 International_Units, By Mouth, [...] Personnel Name: Dionicio ANTON, Lucy Yanez Position: [facility] PCO Associate Professional Member Role: PCP Address: Address: [address] [place] [address]- Care Team Related Persons Name: ALBA TATE Address: home [address] [place] [address]
--- OUTSIDE RECORDS SUMMARY | 2023-11-15 15:34 | XMS_ITS | Continuity of Care Document ---
Author Organization [facility] Riccardo Ordonez Lalit lt Address [address] [place] [address]- Care Team Providers Care Turpentiner Name Role Phone Dionicio ANTON, Lucy Yanez Primary Care Physician En[place] [facility] Date(s): 07/01/22 - 07/31/22 JOYCELYN Ordnoez Adult [address] [place] [address]- Allergies, Adverse Reactions, Alerts Substance Reaction Severity [...] EDT, Supply Start Date: 01/28/21 Status: Ordered Cipro 250 mg oral tablet 1 tablet = 250 mg, By Mouth, Every 12 hours, for 5 days, # 10 tablet, 0 Refills, Acute 08/03/22 10:33:00 EST, 07/29/22 10:33:00 EST, [facility]/pharmacy #[id number], Partial fill upon patient request if the prescription is for a schedule II opioid drug., 161.3, cm... Start Date: 07/29/22 Stop Date: 08/03/22 Status: Ordered Collagen 0 Refills, Maintenance, 02/02/22 [...] 07/22/22 14:06:00 EST, [facility] to [facility] Electronically[facility], Partial fill upon patient request if [...] tablet, Refills 1, Route to Pharmacy Electronically, [facility] STORE [address]17, 161.5, cm, 08/16/21 14:16:00 EST, Height Start [...] 10:55:00 EDT Start Date: 02/21/20 Status: Ordered Memphis-3 oral capsule See Instructions, one daily, 0 [...] Start Date: 02/02/22 Status: Ordered Vitamin D 37071 iu oral capsule 50,000 International_Units, By Mouth, [...] Personnel Name: Dionicio ANTON, Lucy Yanez Position: [facility] PCO Associate Professional Member Role: PCP Address: Address: [address] [place] [address]- Care Team Related Persons Name: ALBA TATE
--- OUTSIDE RECORDS SUMMARY | 2023-11-15 15:34 | XMS_ITS | Continuity of Care Document ---
Author Organization [facility] José Luis Lalit lt Address [address] [place] [address]- Care Team Providers Care Cuff Turner Name Role Phone Dionicio ANTON, Lucy Yanez Primary Care Physician [phone] Encounter [facility] Date(s): 03/16/21 - 03/23/21 [facility] José Luis Adult [address] [place] [address]- Encounter Diagnosis Leg pain, left(Discharge Diagnosis) - 03/16/21 Attending Physician: Not on Staff, Attending MD Referring Physician: Dionicio ANTON, Lucy Yanez [...] 03/08/21 9:39:00 EDT, Route to Pharmacy Electronically, [facility]/pharmacy #[id number], 161.5, cm, 12/30/20 11:09:00 [...] Required Details Start Date: 05/06/19 Status: Ordered Kersey-3 oral capsule See Instructions, one daily, 0 [...] Dates Health Status Cl inical Service Informant Leg pain, left Discharge Diagnosis 03/16/21 Vital Signs Most recent to oldest [Reference Range]: 1 Height 161.5 cm (03/16/21 3:08 PM) Social History Social History Type Response Smoking Status Former smoker, quit more than 30 days ago entered on: 05/16/19 Sex
--- OUTSIDE RECORDS SUMMARY | 2023-11-15 15:34 | XMS_ITS | Continuity of Care Document ---
Author Organization [facility] Riccardo Ordonez Lalit lt Address [address] [place] [address]- Care Team Providers Care Vice President Of Development Name Role Phone Dionicio ANTON, Lucy Yanez Primary Care Physician [phone] Encounter [facility] Date(s): 10/09/23 - 11/08/23 [facility] Riccardo Ordonez Adult [address] [place] [address]- Allergies, Adverse Reactions, Alerts Substance Reaction Severity [...] (oldterm) 1 04/19/23 Recor ded SARS-CoV-2 mRNA (dhxnpwx-bbqj-gdayo) vax 2 04/19/23 Recorded influenza virus vaccine, inactivated 04/05/22 Boyd rded influenza virus vaccine, inactivated 04/28/21 Give n influenza virus vaccine, inactivated 04/22/20 Give n influenza virus vaccine, inactivated 04/09/19 Boyd rded influenza virus vaccine, inactivated 03/28/18 Boyd rded [id number] bivalent booster vax 04/02/22 Recorded SARS-CoV-2 (COVID-19) mRNA-1273 vaccine 11/25/21 R ecorded SARS-CoV-2 (COVID-19) mRNA BNT-162b2 vac 04/22/21 Recorded SARS-CoV-2 (COVID-19) mRNA BNT-162b2 vac 09/09/20 Given SARS-CoV-2 (COVID-19) mRNA BNT-162b2 vac 08/19/20 Recorded zoster vaccine, inactivated 04/06/19 Recorded 1Result Comment: [facility] [place] 2Result Comment: [facility] [place] Medications Accu-Chek Paradise Glucose Meter See Instructions, [...] tablet, 1 Refills, Maintenance, 09/03/23 6:59:00 EST, [facility], 161, cm, 05/16/23 10:58:00 EDT, Height, 84.7, kg, 05/04/23 15:05:00 EDT, Dry Weight Start Date: 09/03/23 Status: Ordered esomeprazole 20 mg oral enteric coated capsule 1 capsule, By Mouth, Daily, # 90 capsule, 3 Refills, Maintenance, 01/27/23 9:13:00 EDT, [facility], 161, cm, 10/28/22 13:31:00 EDT, Height, [...] Date: 10/11/23 Status: Ordered Freestyle Ortiz 2 Portage Freestyle Ortiz 2 [place], See Instructions, # 1 each, Refills 0, [...] capsule, 1 Refills, Maintenance, 09/05/23 6:39:00 EST, [facility], 90, TAKE 1 CAPSULE DAILY, 161, cm, 05/16/23 10:58:00 EDT, Height, 84.7, kg, 05/04/23 15:05:00 EDT, Dry Weight Start Date: 09/05/23 Status: Ordered Januvia 50 mg oral tablet 1 tablet = 50 mg, By Mouth, Daily, # 90 tablet, 2 Refills, Maintenance, 10/11/23 7:41:00 EDT, Tablet, [facility], Partial fill upon patient request [...] Stop 02/29/24 11:33:00 EDT, 09/02/23 11:33:00 EST, [facility], 161, cm, 02/22/23 11:03:00 EDT, [...] 10:55:00 EDT Start Date: 02/21/20 Status: Ordered Saint Paul-3 oral capsule 0 Refills, Maintenance, 09/13/23 15:32:00 [...] 1 Refills, Maintenance, 09/05/23 23:33:00 EST, [facility], 161, cm, 05/16/23 10:58:00 EDT, Height, 84.7, kg, 05/04/23 15:05:00 EDT, Dry Weight Start Date: 09/05/23 Status: Ordered Synthroid 0.05 mg oral tablet 1 tablet, By Mouth, Daily, TAKE 2TABLETS ON MONDAY, # 102 tablet, 1 Refills, Maintenance, 06/20/23 10:22:00 EST, [facility], 161, cm, 05/16/23 10:58:00 EDT, Height, 84.7, kg, 05/04/23 15:05:00 EDT, Dry Weight Start Date: 06/20/23 Status: Ordered timolol maleate 0.5% ophthalmic solution 1 drops, Eyes, Both, 2 times a day, # 10 mL, 0 Refills, Maintenance, 12/27/19 10:36:00 EDT, Solution Start Date: 12/27/19 Status: Ordered Vitamin D 41354 iu oral capsule 50,000 International_Units, By Mouth, [...] Professional Member Role: PCP Address: Address: [address] [facility] Adult [facility] [place] [address]- Care Team Related Persons Name: ALBA TATE Address: home [address] [place] [address]
--- OUTSIDE RECORDS SUMMARY | 2023-11-15 15:34 | XMS_ITS | Continuity of Care Document ---
Author Organization [facility] Leisa Dickerson n's Group Address [address], [address] [place] [address]- Care Team Providers Care Routing Equipment Tender Name Role Phone Dionicio ANTON, Lucy Yanez Primary Care Physician Encounter [facility] Date(s): 02/18/22 - 03/20/22 [facility] Leisa Mcghees [facility] [address], [address] [place] [address]- Allergies, Adverse Reactions, Alerts Substance Reaction Severity [...] tablet, Refills 1, Route to Pharmacy Electronically, [facility] 444[facility], 161.5, cm, 08/16/21 14:16:00 EST, Height Start [...] 10:55:00 EDT Start Date: 02/21/20 Status: Ordered Pride-3 oral capsule See Instructions, one daily, 0 [...] Start Date: 02/02/22 Status: Ordered Vitamin D 92027 iu oral capsule 50,000 International_Units, By Mouth, [...] Personnel Name: Lucy Greenberg NP Address: [address] [place], [place] [address]
--- OUTSIDE RECORDS SUMMARY | 2023-11-15 15:34 | XMS_ITS | Continuity of Care Document ---
Author Organization [facility] Riccardo Ordonez Lalit lt Address [address] [place] [address]- Care Team Providers Care Tire Fabricator Name Role Phone Dionicio ANTON, Lucy Yanez Primary Care Physician En[facility] Date(s): 11/11/21 - 12/11/21 [facility] Riccardo Ordonez Adult [address] [place] [address]- Attending Physician: Admtr, Ar8 Admitting Physician: Admtr, [...] 102 tablet, 3 Refills, 10/11/21 11:14:00 EDT, [facility], 161.5, cm, 10/11/21 10:53:00 EDT, Height Start Date: 10/11/21 Status: Ordered loratadine 10 mg oral tablet 1, tablet, By Mouth, Daily, # 90 tablet, Refills 1, Route to Pharmacy Electronically, [facility] 94207, 161.5, cm, 08/16/21 14:16:00 EST, Height Start Date: 09/03/21 Status: Ordered losartan 50 mg oral tablet 50 mg, 1, tablet, By Mouth, Daily, # 90 tablet, Refills 3, Tot. Refills 3, Maintenance, 12/30/20 11:48:00 EDT, Route to Pharmacy Electronically, [facility], 161.5, cm, 12/30/20 11:09:00 EDT, Height Start Date: 12/30/20 Status: Ordered Multivitamin Daily, 0 Refills, Maintenance, 02/21/20 10:55:00 EDT Start Date: 02/21/20 Status: Ordered Nexium 20 mg oral enteric coated capsule 1 capsule = 20 mg, By Mouth, Daily, # 90 capsule, 1 Refills, Maintenance, 09/13/21 9:37:00 EST, EC Capsule, [facility], Partial fill upon patient request if the prescription is fora schedule II opioid drug., 161.5, cm, 09/13/21 8:5... Start Date: 09/13/21 Status: Ordered Nexium Capsule See Instructions, 22 mg 1 every other day, Refills 0, Maintenance, 05/06/19 16:33:27 EDT, Instructions Replace Required Details Start Date: 05/06/19 Status: Ordered [place]-3 oral capsule See Instructions, one daily, 0 [...]
--- OUTSIDE RECORDS SUMMARY | 2023-11-15 15:34 | XMS_ITS | Continuity of Care Document ---
Author Organization [facility] José Luis Lalit lt Address [address] [place] [address]- Care Team Providers Care Print Journalist Name Role Phone Dionicio ANTON, Lucy Yanez Primary Care Physician [phone] [place] [facility] [place] 04/22/20 - 04/29/20 [facility] Adult [address] [place] [address]- [facility] Attending Physician: Not on Staff, Attending MD [...] Required Details Start Date: 05/06/19 Status: Ordered Emmett-3 oral capsule See Instructions, one daily, 0 [...]
--- OUTSIDE RECORDS SUMMARY | 2023-11-15 15:34 | XMS_ITS | Continuity of Care Document ---
Author Organization [facility] Riccardo Ordonez Lalit lt Address [address] [place] [address]- Care Team Providers Care Tool Carrier Name Role Phone Dionicio ANTON, Lucy Yanez Primary Care Physician [phone] Encounter [facility] Date(s): 08/29/22 - 09/28/22 [facility] Riccardo Ordonez Adult [address] [place] [address]- Allergies, Adverse Reactions, Alerts Substance Reaction Severity [...] Maintenance, 09/03/22 19:13:00 EST, Tablet, [facility]/pharmacy #[id number], Partial fill upon patient request if [...] Refills, Maintenance, 09/08/22 10:27:00 EST, [facility], 161, cm, 08/30/22 14:54:00 EST, Height, 88.9, kg, 08/30/22 14:54:00 EST, Dry Weight Start Date: 09/08/22 Status: Ordered glipiZIDE 5 mg oral tablet 15 mg, 3, tablet, By Mouth, Daily, for 90 days, # 270 tablet, Refills 1, Tot. Refills 1, Hard Stop 03/01/23 11:56:00 EDT, 09/02/22 11:56:00 EST, Route to Pharmacy Electronically, [facility]/pharmacy #[id number], Partial fill upon patient request if the prescriptio... Start Date: 09/02/22 Stop Date: 03/01/23 Status: Ordered glipiZIDE 5 mg oral tablet 15 mg, 3, tablet, By Mouth, Daily, # 270 tablet, Refills 1, Tot. Refills 1, Maintenance, 03/01/23 11:56:00 EDT, Route to Pharmacy Electronically, [facility], Partial fill upon patient request if the prescription is for a schedul... Start Date: 03/01/23 Stop Date: 08/28/23 Status: Ordered hydrochlorothiazide-triamterene 25 mg-37.5 mg oral capsule 1 capsule, By Mouth, Daily, # 90 capsule, 1 Refills, Maintenance, 09/08/22 10:28:00 EST, [facility], 0, 1 capsule By Mouth Daily, 161, cm, 08/30/22 14:54:00 EST, Height, 88.9, kg, 08/30/22 14:54:00 EST, Dry Weight Start Date: 09/08/22 Status: Ordered levothyroxine 0.05 mg oral tablet See Instructions, TAKE 1 TABLET DAILY, TAKE 2 TABLETS ON MONDAY, # 102 tablet, 0 Refills, 09/08/22 10:27:00 EST, [facility], 161, cm, 08/30/22 14:54:00 EST, Height, 88.9, kg, 08/30/22 14:54:00 EST, Dry Weight Start Date: 09/08/22 Status: Ordered loratadine 10 mg oral tablet 1, tablet, By Mouth, Daily, # 90 tablet, Refills 1, Route to Pharmacy Electronically, [facility] ST[facility] [address]45, 161.5, cm, 08/16/21 14:16:00 EST, Height Start [...] 3 Refills, 09/08/22 10:28:00 EST, [facility], 161, cm, 08/30/22 14:54:00 EST, Height, 88.9, kg, 08/30/22 14:54:00 EST, Dry Weight Start Date: 09/08/22 Status: Ordered Magnesium Magnesium, 0 Refills, Maintenance, 02/02/22 13:23:00 EDT Start Date: 02/02/22 Status: Ordered Multivitamin Daily, 0 Refills, Maintenance, 02/21/20 10:55:00 EDT Start Date: 02/21/20 Status: Ordered Plano-3 oral capsule See Instructions, one daily, 0 [...] Start Date: 02/02/22 Status: Ordered Vitamin D 82020 iu oral capsule 50,000 International_Units, By Mouth, [...] Professional Member Role: PCP Address: Address: [address] [place] [address]- Care Team Related Persons Name: ALBA TATE Address: home [address] [place] [address]
--- OUTSIDE RECORDS SUMMARY | 2023-11-15 15:34 | XMS_ITS | Continuity of Care Document ---
Author Organization [facility] José Luis Lalit lt Address [address] [place] [address]- Care Team Providers Care Trouble Shooter Name Role Phone Dionicio ANTON, Lucy Yanez Primary Care Physician [place] [facility] [place] 03/26/21 - 04/25/21 [facility] Riccardo Ordonez Adult [address] [place] [address]- Allergies, Adverse Reactions, Alerts Substance Reaction Severity [...] 03/08/21 9:39:00 EDT, Route to Pharmacy Electronically, [facility]/pharmacy #[id number], 161.5, cm, 12/30/20 11:09:00 EDT, [...] Required Details Start Date: 05/06/19 Status: Ordered Conway-3 oral capsule See Instructions, one daily, 0 [...]
--- OUTSIDE RECORDS SUMMARY | 2023-11-15 15:34 | XMS_ITS | Continuity of Care Document ---
Author Organization [facility] José Luis Lalit lt Address [address] [place] [address]- Care Team Providers Care Certified Respiratory Therapist Name Role Phone Dionicio ANTON, Lucy Yanez Primary Care Physician [phone] [place] [facility] Date(s): 04/01/21 - 05/01/21 [facility] Adult [address] [place] [address]- Allergies, Adverse Reactions, Alerts Substance Reaction Severity [...] 03/08/21 9:39:00 EDT, Route to Pharmacy Electronically, [facility]/pharmacy #[id number], 161.5, cm, 12/30/20 [...] Required Details Start Date: 05/06/19 Status: Ordered Gay-3 oral capsule See Instructions, one daily, 0 [...]
--- OUTSIDE RECORDS SUMMARY | 2023-11-15 15:34 | XMS_ITS | Continuity of Care Document ---
Author Organization [facility] José Luis Lalit lt Address [address] [place] [address]- Care Team Providers Care Data Analytics Architect Name Role Phone Dionicio ANTON, Lucy Yanez Primary Care Physician [place] [facility] 09[place]15/21 - 10/15/21 [facility] Riccardo Ordonez Adult [address] [place] [address]- Allergies, Adverse Reactions, Alerts Substance Reaction Severity [...] Boyd rded influenza virus vaccine, inactivated 03/28/18 Byod rded SARS-CoV-2 (COVID-19) mRNA BNT-162b2 vac 04/22/21 [...] tablet, Refills 1, Route to Pharmacy Electronically, [facility] 482[facility], 161.5, cm, 08/16/21 14:16:00 EST, Height Start Date: 09/03/21 Status: Ordered losartan 50 mg oral tablet 50 mg, 1, tablet, By Mouth, Daily, # 90 tablet, Refills 3, Tot. Refills 3, Maintenance, 12/30/20 11:48:00 EDT, Route to Pharmacy Electronically, [facility], 161.5, cm, 12/30/20 11:09:00 EDT, Height Start Date: 12/30/20 Status: Ordered Multivitamin Daily, 0 Refills, Maintenance, 02/21/20 10:55:00 EDT Start Date: 02/21/20 Status: Ordered Nexium 20 mg oral enteric coated capsule 1 capsule = 20 mg, By Mouth, Daily, # 90 capsule, 1 Refills, Maintenance, 09/13/21 9:37:00 EST, EC Capsule, [facility], Partial fill upon patient request [...]
--- OUTSIDE RECORDS SUMMARY | 2023-11-15 15:34 | XMS_ITS | Continuity of Care Document ---
Author Organization [facility] Address [address] [place] [address]- Care Team Providers Care Drug Enforcement Agent Name Role Phone Dionicio ANTON, Lucy Yanez Primary Care Physician [phone] Encounter 06/02/22 - 07/17/22 [facility] [address] [facility] [facility] [address] [address], [address] [place] [address]- Attending Physician: Lucy Greenberg NP Admitting Physician: Dionicio ANTNO, Lucy Yanez Referring Physician: Dionicio ANTON, Lucy [...] Weight Start Date: 07/17/22 Status: Ordered glipiZIDE 10 mg oral tablet, extended release 1 tablet, By Mouth, Daily, # 90 tablet, 1 Refills, Maintenance, 07/17/22 15:34:00 EST, [facility], 161.3, cm, 07/15/22 9:49:00 EST, Height, 88, kg, 02/02/22 13:19:00 EDT, Dry Weight Start Date: 07/17/22 Status: Ordered hydrochlorothiazide-triamterene 25 mg-37.5 mg oral [...] tablet, Refills 1, Route to Pharmacy Electronically, [facility], 161.5, cm, 08/16/21 14:16:00 EST, Height Start [...] 10:55:00 EDT Start Date: 02/21/20 Status: Ordered Louisville-3 oral capsule See Instructions, one daily, 0 [...] Start Date: 02/02/22 Status: Ordered Vitamin D 53211 iu oral capsule 50,000 International_Units, By Mouth, [...] Associate Professional Member Role: PCP Address: Address: [address] [place] [address]- Care Team Related Persons Name: ALBA TATE
--- OUTSIDE RECORDS SUMMARY | 2023-11-15 15:34 | XMS_ITS | Continuity of Care Document ---
Author Organization [facility] Riccardo Ordonez Lalit lt Address [address] [place] [address]- Care Team Providers Care Cable Installer Name Role Phone Dionicio ANTON, Lucy Yanez Primary Care Physician [place] [facility] [place]20[place]22 - 02/19/22 [facility] Riccardo Ordonez Adult [address] [place] [address]- Allergies, Adverse Reactions, Alerts Substance Reaction Severity [...] 1, Route to Pharmacy Electronically, [facility], 161.5, cm, 08/16/21 14:16:00 EST, Height Start [...] 10:55:00 EDT Start Date: 02/21/20 Status: Ordered Granite-3 oral capsule See Instructions, one daily, 0 [...] Start Date: 02/02/22 Status: Ordered Vitamin D 11745 iu oral capsule 50,000 International_Units, By Mouth, [...]
--- OUTSIDE RECORDS SUMMARY | 2023-11-15 15:34 | XMS_ITS | Continuity of Care Document ---
Author Organization [facility] Riccardo Ordonez Lalit lt Address [address] [place] [address]- Care Team Providers Care Fork Truck Operator Name Role Phone Dionicio ANTON, Lucy Yanez Primary Care Physician [place] [facility] [place] 02/02/22 [facility] Riccardo Ordonez Adult [address] [place] [address]- Allergies, Adverse Reactions, Alerts Substance Reaction Severity [...] 1, Route to Pharmacy Electronically, [id number], 161.5, cm, 08/16/21 14:16:00 EST, Height Start [...] 10:55:00 EDT Start Date: 02/21/20 Status: Ordered Lucinda-3 oral capsule See Instructions, one daily, 0 [...] Start Date: 02/02/22 Status: Ordered Vitamin D 03975 iu oral capsule 50,000 International_Units, By Mouth, [...]
--- OUTSIDE RECORDS SUMMARY | 2023-11-15 15:34 | XMS_ITS | Continuity of Care Document ---
Author Organization [facility] Riccardo Ordonez Lalit lt Address [address] [place] [address]- Care Team Providers Care Globe Mounter Name Role Phone Dionicio ANTON, Lucy Yanez Primary Care Physician Encounter [facility] Date(s): 09/28/23 - 10/28/23 [facility] Riccardo Ordonez Adult [address] [place] [address]- Allergies, Adverse Reactions, Alerts Substance Reaction Severity [...] (oldterm) 1 04/19/23 Recor ded SARS-CoV-2 mRNA ([id number]) vax 2 04/19/23 Recorded influenza virus vaccine, inactivated 04/05/22 Boyd rded influenza virus vaccine, inactivated 04/28/21 Give n influenza virus vaccine, inactivated 04/22/20 Give n influenza virus vaccine, inactivated 04/09/19 Boyd rded influenza virus vaccine, inactivated 03/28/18 Boyd rded [id number] bivalent booster vax 04/02/22 Recorded SARS-CoV-2 (COVID-19) mRNA-1273 vaccine 11/25/21 R ecorded SARS-CoV-2 (COVID-19) mRNA BNT-162b2 vac 04/22/21 Recorded SARS-CoV-2 (COVID-19) mRNA BNT-162b2 vac 09/09/20 Given SARS-CoV-2 (COVID-19) mRNA BNT-162b2 vac 08/19/20 Recorded zoster vaccine, inactivated 04/06/19 Recorded 1Result Comment: [facility] [place] 2Result Comment: [facility] [place] Medications Accu-Chek Paradise Glucose Meter See Instructions, [...] tablet, 1 Refills, Maintenance, 09/03/23 6:59:00 EST, [facility], 161, cm, 05/16/23 10:58:00 EDT, Height, 84.7, kg, 05/04/23 15:05:00 EDT, Dry Weight Start Date: 09/03/23 Status: Ordered esomeprazole 20 mg oral enteric coated capsule 1 capsule, By Mouth, Daily, # 90 capsule, 3 Refills, Maintenance, 01/27/23 9:13:00 EDT, [facility], 161, cm, 10/28/22 13:31:00 EDT, [...] Date: 10/11/23 Status: Ordered Freestyle Ortiz 2 [place] Freestyle Ortiz 2 [place], See Instructions, # 1 each, Refills 0, [...] capsule, 1 Refills, Maintenance, 09/05/23 6:39:00 EST, [facility], 90, TAKE 1 CAPSULE DAILY, 161, cm, 05/16/23 10:58:00 EDT, Height, 84.7, kg, 05/04/23 15:05:00 EDT, Dry Weight Start Date: 09/05/23 Status: Ordered Januvia 50 mg oral tablet 1 tablet = 50 mg, By Mouth, Daily, # 90 tablet, 2 Refills, Maintenance, 10/11/23 7:41:00 EDT, Tablet, [facility], Partial [...] 02/29/24 11:33:00 EDT, 09/02/23 11:33:00 EST, [facility], 161, cm, 02/22/23 11:03:00 [...] 10:55:00 EDT Start Date: 02/21/20 Status: Ordered Coila-3 oral capsule 0 Refills, Maintenance, 09/13/23 15:32:00 [...] tablet, 1 Refills, Maintenance, 06/20/23 10:22:00 EST, [facility], 161, cm, 05/16/23 10:58:00 EDT, Height, 84.7, kg, 05/04/23 15:05:00 EDT, Dry Weight Start Date: 06/20/23 Status: Ordered timolol maleate 0.5% ophthalmic solution 1 drops, Eyes, Both, 2 times a day, # 10 mL, 0 Refills, Maintenance, 12/27/19 10:36:00 EDT, Solution Start Date: 12/27/19 Status: Ordered Vitamin D 88119 iu oral capsule 50,000 International_Units, By Mouth, [...] Team Personnel Name: Lucy Greenberg NP Position: [facility] PCO Associate Professional Member Role: PCP Address: Address: [address] [facility] Adult [facility] [place] [address]- Care Team Related Persons Name: ALBA TATE Address: home [address] [place] [address]
--- OUTSIDE RECORDS SUMMARY | 2023-11-15 15:34 | XMS_ITS | Continuity of Care Document ---
Author Organization [facility] Lalit Address [address] [place] [address]- Care Team Providers Care Regional Education Coordinator Name Role Phone Dionicio ANTON, Lucy Yanez Primary Care Physician [place] [facility] [place](s): 02/03/20 - 03/04/20 [facility] Adult [address] [place] [address]- [facility] Allergies, Adverse Reactions, Alerts Substance Reaction [...] 04/10/20 8:57:00 EDT, 02/10/20 8:57:00 EDT, [facility], 161.5, cm, 01/07/20 15:02:00 EDT, [...] 3 Refills, Maintenance, 01/14/20 11:32:00 EDT, [facility], 161.5, cm, 01/07/20 15:02:00 EDT, Height Start Date: 01/14/20 Status: Ordered Multivitamin Daily, 0 Refills, Maintenance, 02/21/20 10:55:00 EDT Start Date: 02/21/20 Status: Ordered Nexium Capsule See Instructions, 22 mg 1 every other day, Refills 0, Maintenance, 05/06/19 16:33:27 EDT, Instructions Replace Required Details Start Date: 05/06/19 Status: Ordered Hollywood-3 oral capsule See Instructions, one daily, 0 [...]
--- OUTSIDE RECORDS SUMMARY | 2023-11-15 15:34 | XMS_ITS | Continuity of Care Document ---
Author Organization [facility] Address [address], [address] [place] [address]- Care Team Providers Care Certified Family Mediator Name Role Phone Dionicio ANTON, Lucy Yanez Primary Care Physician Encounter [facility] [place] Date(s): 03/22/22 - 04/21/22 [facility] Leisa Mcghees [facility] [address], [address] [place] [address]- Allergies, Adverse Reactions, Alerts Substance Reaction Severity [...] Supply Start Date: 01/28/21 Status: Ordered Accu-Chek Paardise Plus Test Strips See Instructions, # 100 [...] tablet, Refills 1, Route to Pharmacy Electronically, [facility], 161.5, cm, 08/16/21 14:16:00 EST, Height Start [...] 10:55:00 EDT Start Date: 02/21/20 Status: Ordered Newcomer[place]-3 oral capsule See Instructions, one daily, 0 [...] Start Date: 02/02/22 Status: Ordered Vitamin D 23947 iu oral capsule 50,000 International_Units, By Mouth, [...] Name: Dionicio ANTON, Lucy Yanez Address: Address: [address] [place] [id number]
--- OUTSIDE RECORDS SUMMARY | 2023-11-15 15:34 | XMS_ITS | Continuity of Care Document ---
Author Organization [facility] Riccardo Ordonez Lalit lt Address [address] [place] [address]- Care Team Providers Care Scrap Handler Name Role Phone Dionicio ANTON, Lucy Yanez Primary Care Physician Encounter [facility] Date(s): 09/02/22 - 10/02/22 [facility] Riccardo Ordonez Adult [address] [place] [address]- Allergies, Adverse Reactions, Alerts Substance Reaction Severity Status cefuroxime Active beta blockers Active Bactrim Active metFORMIN Diarrhea Active ALVARO [...] 0 Refills, Maintenance, 09/03/22 19:13:00 EST, Tablet, [facility]/pharmacy #[id number], Partial fill upon patient request [...] capsule, 0 Refills, Maintenance, 09/08/22 10:27:00 EST, [facility], 161, cm, 08/30/22 14:54:00 EST, Height, 88.9, kg, 08/30/22 14:54:00 EST, Dry Weight Start Date: 09/08/22 Status: Ordered glipiZIDE 5 mg oral tablet 15 mg, 3, tablet, By Mouth, Daily, for 90 days, # 270 tablet, Refills 1, Tot. Refills 1, Hard Stop 03/01/23 11:56:00 EDT, 09/02/22 11:56:00 EST, Route to Pharmacy Electronically, [facility]/pharmacy #[id number], Partial fill upon patient request if the prescriptio... Start Date: 09/02/22 Stop Date: 03/01/23 Status: Ordered glipiZIDE 5 mg oral tablet 15 mg, 3, tablet, By Mouth, Daily, # 270 tablet, Refills 1, Tot. Refills 1, Maintenance, 03/01/23 11:56:00 EDT, Route to Pharmacy Electronically, [facility], Partial fill upon patient request if the prescription is for a schedul... Start Date: 03/01/23 Stop Date: 08/28/23 Status: Ordered hydrochlorothiazide-triamterene 25 mg-37.5 mg oral capsule 1 capsule, By Mouth, Daily, # 90 capsule, 1 Refills, Maintenance, 09/08/22 10:28:00 EST, [facility], 0, 1 capsule By Mouth Daily, 161, cm, 08/30/22 14:54:00 EST, Height, 88.9, kg, 08/30/22 14:54:00 EST, Dry Weight Start Date: 09/08/22 Status: Ordered levothyroxine 0.05 mg oral tablet See Instructions, TAKE 1 TABLET DAILY, TAKE 2 TABLETS ON MONDAY, # 102 tablet, 0 Refills, 09/08/22 10:27:00 EST, [facility], 161, cm, 08/30/22 14:54:00 EST, Height, 88.9, kg, 08/30/22 14:54:00 EST, Dry Weight Start Date: 09/08/22 Status: Ordered loratadine 10 mg oral tablet 1, tablet, By Mouth, Daily, # 90 tablet, Refills 1, Route to Pharmacy Electronically, [facility], 161.5, cm, 08/16/21 14:16:00 EST, Height Start [...] 90 tablet, 3 Refills, 09/08/22 10:28:00 EST, [facility], 161, cm, 08/30/22 14:54:00 EST, Height, 88.9, kg, 08/30/22 14:54:00 EST, Dry Weight Start Date: 09/08/22 Status: Ordered Magnesium Magnesium, 0 Refills, Maintenance, 02/02/22 13:23:00 EDT Start Date: 02/02/22 Status: Ordered Multivitamin Daily, 0 Refills, Maintenance, 02/21/20 10:55:00 EDT Start Date: 02/21/20 Status: Ordered Miami-3 oral capsule See Instructions, one daily, 0 [...] tablet, 1 Refills, Maintenance, 09/08/22 10:29:00 EST, [facility], 161, cm, 08/30/22 14:54:00 EST, Height, [...] Start Date: 02/02/22 Status: Ordered Vitamin D 55172 iu oral capsule 50,000 International_Units, By Mouth, [...] Associate Professional Member Role: PCP Address: Address: [address] [place] [address]- Care Team Related Persons Name: ALBA TATE Address: home [address] [place] [address]
--- OUTSIDE RECORDS SUMMARY | 2023-11-15 15:34 | XMS_ITS | Continuity of Care Document ---
Author Organization [facility] José Luis Lalit lt Address [address] [place] [address]- Care Team Providers Care Business Editor Name Role Phone Dionicio ANTON, Lucy Yanez Primary Care Physician [phone] [place] [facility] [place] 09[place]13/20 [facility] José Luis Adult [address] [place] [address]- Allergies, Adverse Reactions, Alerts Substance Reaction Severity [...] tablet, 3 Refills, Maintenance, 07/02/20 12:22:00 EST, [facility]/pharmacy #[id number], 161.5, cm, 07/01/20 9:54:00 EST, Height Start Date: 07/02/20 Status: Ordered Multivitamin Daily, 0 Refills, Maintenance, 02/21/20 10:55:00 EDT Start Date: 02/21/20 Status: Ordered Nexium Capsule See Instructions, 22 mg 1 every other day, Refills 0, Maintenance, 05/06/19 16:33:27 EDT, Instructions Replace Required Details Start Date: 05/06/19 Status: Ordered Franklinville-3 oral capsule See Instructions, one daily, 0 [...]
--- OUTSIDE RECORDS SUMMARY | 2023-11-15 15:34 | XMS_ITS | Continuity of Care Document ---
Author Organization [facility] José Luis Lalit lt Address [address] [place] [address]- Care Team Providers Care Manager Product Support Name Role Phone Dionicio ANTON, Lucy Yanez Primary Care Physician [place] [facility] [place] [id number] Date(s): 01/07/20 - 02/06/20 [facility] Adult [address] [place] [address]- [facility] Attending Physician: Damián Turcios Admitting Physician: Admtr, [id number] Referring Physician: Admtr, [id number] Allergies, Adverse Reactions, [...] tablet, 0 Refills, Maintenance, 01/07/20 15:36:00 EDT, [facility]/pharmacy #[id number], 161.5, cm, 01/07/20 15:02:00 EDT, Height Start Date: 01/07/20 Stop Date: 02/25/20 Status: Ordered LORazepam 0.5 mg oral tablet 1 tablet = 0.5 mg, By Mouth, Daily at bedtime, for 30 days, # 30 tablet, 1 Refills, Acute 03/22/20 10:02:00 EDT, 01/22/20 10:02:00 EDT, [facility], 161.5, cm, 01/07/20 15:02:00 EDT, Height Start Date: 01/22/20 Stop Date: 03/22/20 Status: Ordered losartan 50 mg oral tablet 50 mg, 1, tablet, By Mouth, Daily, # 90 tablet, Refills 3, Tot. Refills 3, Maintenance, 01/14/20 11:31:00 EDT, Route to Pharmacy Electronically, [facility], 161.5, cm, 01/07/20 15:02:00 EDT, Height Start Date: 01/14/20 Status: Ordered metFORMIN 500 mg oral tablet, extended release 1 tablet = 500 mg, By Mouth, 2 times a day, replace short acting, # 180 tablet, 3 Refills, Maintenance, 01/14/20 11:32:00 EDT, [facility], 161.5, cm, 01/07/20 15:02:00 EDT, Height Start Date: 01/14/20 Status: Ordered Nexium Capsule See Instructions, 22 mg 1 every other day, Refills 0, Maintenance, 05/06/19 16:33:27 EDT, Instructions Replace Required Details Start Date: 05/06/19 Status: Ordered [place]-3 oral capsule See Instructions, one daily, [...]
[2023-11-15 15:35] VITALS: BP 122/78; PULSE 91; O2SAT 95
--- NOTE | 2023-11-15 15:35 | AM.OFFWIN_ITS ---
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 Allergy (Unknown, Uncoded 11/15/23 15:36) N/A Do you need a note to return to daycare/school/sports/work: No HPI HPI Comments 2 History of Present Illness0 Details 83 y/o female patient who presents to [facility] in clinic with c/o right hand pain and swelling. Pt fell at home and hit head on the ground plus landing on her right hand. Denies LOC, dizziness, nausea or vomiting. 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 History of pulmonary embolism Hypercholesterolemia Hypertension Surgical History History of left total mastectomy Family History Brother History of stomach cancer History of liver cancer Social History (Updated 10/02/23 @ 12:28 by Hoa Hayes DO) Patient Tobacco Use Status: Never used Tobacco Advance Directives Date on File: 10/22/20 Review of Systems Const All systems reviewed & are unremarkable except as noted in HPI and below Physical Exam Vital Signs: Last Vital Signs Pulse 91 11/15/23 15:35 BP 122/78 11/15/23 15:35 Pulse Ox 95 11/15/23 15:35 Const General: comfortable and no acute distress Nutritional Appearance: thin Orientation/consciousness: patient oriented x3 Eyes Pupils: Equal, round and reactive pupils present Neuro General: patient oriented x3, gait normal and moves all extremities Cranial nerves: Yes Equal, round and reactive pupils present, Yes Normal accommodation reflex present, Yes Bilaterally intact EOM present, Yes Normal facial strength present and Yes Midline tongue present Motor exam (neuro): 5/5 motor strength present throughout Extrem Right upper extremity: Extremity exam: right hand Details: normal capillary refill, neuromotor exam normal, neurosensory exam normal, tenderness Location: of the 3rd digit, of the 4th digit and of the 5th digit, warmth, swelling Location: of the 3rd digit Location: at the distal phalanx, of the 4th digit Location: at the middle phalanx and of the 5th digit Location: on the dorsal aspect and ecchymosis; no crepitus Left upper extremity: normal to inspection, full ROM and normal capillary refill Hand/finger images: 2 1. erythema bruising swelling and tenderness at 4th - 5th digits metapharangeal Psych Speech and movement: Normal speech and movement present Assessment & Plan Assessment & Plan (1) Right hand pain: Code(s): M79.641 - Pain in right hand Plan: - Xray of the hand, tomorrow morning (Radiology Dept closed 4p today). - IceHot - Wrapped wrist/hand with Constantine - Acetaminophen for pain relief - Advised to seek emergency services if experiencing vision changes, severe headaches, dizziness, nausea or vomiting. Orders: Orders 2 XR hand RT min 3V Today M79.641 - Pain in right hand Coding Level of Care Code Est Pt Level 3 (01863) Diagnoses Right hand pain M79.641 Time Spent (min) 15
--- OUTSIDE RECORDS SUMMARY | 2023-11-15 15:35 | XMS_ITS | Continuity of Care Document ---
Author Organization [facility] Riccardo Ordonez Lalit lt Address [address] [place] [address]- Care Team Providers Care Noise Abatement Engineer Name Role Phone Dionicio ANTON, Lucy Yanez Primary Care Physician [phone] Encounter [facility] [place] Date(s): 04/14/22 - 04/21/22 JOYCELYN Ordonez Adult [address] [place] [address]- Encounter Diagnosis Medicare annual wellness visit, subsequent(Discharge Diagnosis) - 04/14/22 Benign essential hypertension(Discharge Diagnosis) - 04/14/22 Hypothyroidism(Discharge Diagnosis) - 04/14/22 Hypercholesterolemia(Discharge Diagnosis) - 04/14/22 Type II diabetes mellitus(Discharge Diagnosis) - 04/14/22 Attending Physician: Lucy Greenberg NP Referring Physician: [...] Give n influenza virus vaccine, inactivated 04/09/19 Byod rded influenza virus vaccine, inactivated 03/28/18 Boyd [...] tablet, Refills 1, Route to Pharmacy Electronically, [facility], 161.5, cm, 08/16/21 14:16:00 EST, Height Start [...] 10:55:00 EDT Start Date: 02/21/20 Status: Ordered Waverly-3 oral capsule See Instructions, one daily, 0 [...] Start Date: 02/02/22 Status: Ordered Vitamin D 20208 iu oral capsule 50,000 International_Units, By Mouth, [...] Medicare annual wellness visit, subsequent Discharge Diagnosis 04/14/22 Benign essential hypertension Discharge Diagnosis 04/14/22 Hypothyroidism Discharge Diagnosis 04/14/22 Hypercholesterolemia Discharge Diagnosis 04/14/22 Type II diabetes mellitus Discharge Diagnosis 04/14/22 Vital Signs Most recent to oldest [Reference Range]: 1 Height 161.3 cm (04/14/22 9:25 AM) Weight 88.5 kg (04/14/22 9:25 AM) Oxygen Saturation [94-100 %] 100 % (04/14/22 9:25 AM) Pulse Rate [55-90 bpm] 87 bpm (04/14/22 9:25 AM) Body Mass Index [18.5-24.99 kg/m2] 34.02 kg/m2 *>HHI* (04/14/22 9:25 AM) Blood Pressure [90-138/55-84 mm Hg] 134/ 81mm Hg (04/14/22 9:25 AM) Temperature [96.8-100.4 DegF] 97.0 DegF (04/14/22 9:25 AM) Blood pressure sites Arm, left (04/14/22 9:25 AM) Temperature Route Temporal (04/14/22 9:25 AM) Weight Obtained Via Standing scale (04/14/22 9:25 AM) Social History Social History Type Response Smoking Status Former smoker, quit more than 30 days ago entered on: 05/16/19 Sex Patient Care team information Personnel Name: Lucy Greenberg NP Address: Address: [address] [place] [address]-
--- OUTSIDE RECORDS SUMMARY | 2023-11-15 15:35 | XMS_ITS | Continuity of Care Document ---
Author Organization [facility] José Luis Lalit lt Address [address] [place] [address]- Care Team Providers Care Peripheral Vascular Tech Name Role Phone Dionicio ANTON, Lucy Yanez Primary Care Physician En[place] [facility] [place] Date(s): 02/07/23 - 02/14/23 [facility] Riccardo Ordonez Adult [address] [place] [address]- Encounter Diagnosis Type II diabetes mellitus(Discharge Diagnosis) - 02/07/23 Attending Physician: Lucy Greenberg NP Referring Physician: [...] Refills, Maintenance, 10/31/22 11:47:00 EDT, [facility], 161, cm, 10/28/22 13:31:00 EDT, Height, 86.9, [...] capsule, 3 Refills, Maintenance, 01/27/23 9:13:00 EDT, [facility], 161, cm, 10/28/22 13:31:00 EDT, Height, 86.9, kg, 10/28/22 13:31:00 EDT, DryWeight Start Date: 01/27/23 Status: Ordered glipiZIDE 5 mg oral tablet, extended release 3 tablet = 15 mg, By Mouth, Daily, # 90 tablet, 3 Refills, Maintenance, 01/27/23 15:23:00 EDT, [facility], Partial fill upon patient request if the prescription is for a schedule II opioid drug., 161, cm, 10/28/22 13:31:00 EDT,... Start Date: 01/27/23 Stop Date: 05/27/23 Status: Ordered hydrochlorothiazide-triamterene 25 mg-37.5 mg oral capsule 1 capsule, By Mouth, Daily, # 90 capsule, 1 Refills, Maintenance, 09/08/22 10:28:00 EST, [facility], 0, 1 capsule By Mouth Daily, 161, cm, 08/30/22 14:54:00 EST, Height, 88.9, kg, 08/30/22 14:54:00 EST, Dry Weight Start Date: 09/08/22 Status: Ordered loratadine 10 mg oral tablet 1, tablet, By Mouth, Daily, # 90 tablet, Refills 1, Route to Pharmacy Electronically, [facility], 161.5, cm, 08/16/21 14:16:00 EST, Height Start Date: 09/03/21 Status: Ordered losartan 50 mg oral tablet 1 tablet, By Mouth, Daily, # 90 tablet, 3 Refills, 09/08/22 10:28:00 EST, [facility], 161, cm, 08/30/22 14:54:00 EST, Height, 88.9, kg, 08/30/22 14:54:00 EST, Dry Weight Start Date: 09/08/22 Status: Ordered Magnesium Magnesium, 0 Refills, Maintenance, 02/02/22 13:23:00 EDT Start Date: 02/02/22 Status: Ordered Multivitamin Daily, 0 Refills, Maintenance, 02/21/20 10:55:00 EDT Start Date: 02/21/20 Status: Ordered Ferguson-3 oral capsule See Instructions, one daily, 0 [...] tablet, 1 Refills, Maintenance, 09/08/22 10:29:00 EST, Pharmacy, 161, cm, 08/30/22 14:54:00 EST, Height, 88.9, kg, 08/30/22 14:54:00 EST, Dry Weight Start Date: 09/08/22 Status: Ordered Synthroid 0.05 mg oral tablet 1 tablet, By Mouth, Daily, TAKE 2TABLETS ON MONDAY, # 102 tablet, 1 Refills, Maintenance, 01/27/23 4:55:00 EDT, [facility], 161, cm, 10/28/22 [...] Start Date: 02/02/22 Status: Ordered Vitamin D 31843 iu oral capsule 50,000 International_Units, By Mouth, [...] Diagnosis Diagnosis Type Effective Dates Health Status [facility] Informant Type II diabetes mellitus Discharge Diagnosis 02/07/23 Vital Signs Most recent to oldest [Reference Range]: 1 Height 161 cm (02/07/23 11:15 AM) Weight 85.8 kg (02/07/23 11:15 AM) Oxygen Saturation [94-100 %] 98 % (02/07/23 11:15 AM) Pulse Rate [55-90 bpm] 78 bpm (02/07/23 11:15 AM) Body Mass Index [18.5-24.99 kg/m2] 33.1 kg/m2 *>HHI* (02/07/23 11:15 AM) Blood Pressure [90-138/55-84 mm Hg] 104/ 67mm Hg (02/07/23 11:15 AM) Blood pressure sites Arm, right (02/07/23 11:15 AM) Weight Obtained Via Standing scale (02/07/23 11:15 AM) Social History Social History Type Response Smoking Status Former smoker, quit more than 30 days ago entered on: 05/16/19 Sex Note * Faiza Gann: SIGN, VERIFY, PERFORM Event Display: Patient Education/Instruction Authored Date: [id number] [facility] *BMP So José Luis Suazo Clinical Summary Name RENEE TATE Age 82 Years 1940 PCP Dionicio ANTON, Lucy [facility]z [id number] Visit Date 02/07/2023 11:05:00 Additional Instructions: Scheduled Appointments?? Future Appointments ?*[facility] ?[address]??[place],??[place],??[address] ?Phone:??--?Fax:??-- ?Appt. Date:??02/22/2023?11:00 AM ?Scheduled Provider:??Azra ANTON, Jacinda Culver ?[facility] ?[address]??[place],??[place],??[address] ?Phone:??[phone]?Fax:??-- ?Appt. Date:??06/01/2023?11:15 AM ?Scheduled Provider:??EULOGIO Suh Mammo 1 Follow-Up Instructions ?? Diagnosis Type 2 diabetes mellitus without complications Medications: Please continue your medications until treatment is completed or stopped by your provider. Discuss any questions related to medications with your provider. Medications to Continue with No Changes These medications were not printed or sent to your pharmacy Anastrozole (anastrozole 1 mg oral tablet) 1 tab(s) Oral Daily. Refills: 0. Next Dose: Ascorbic Acid (Vitamin C) Oral Daily. Next Dose: Collagen Next Dose: Durable Medical Equipment (Accu-Chek Paradise Glucose Meter) To check blood sugar twice daily. E11.9 DM II. Refills: 1. Next Dose: Durable Medical Equipment (Accu-Chek Paradise Plus Test Strips) To check blood sugar twice daily. E11.9 DM II. Refills: 3. Next Dose: Durable Medical Equipment (Accu-Chek Multiclix Drum Lancets) To check blood sugar twice daily. E11.9 DM II. Refills: 3. Next Dose: Durable Medical Equipment (OneTouch Verio Lancets) To check fasting blood sugar daily. E11.9 DM II. Refills: 5. Next Dose: Durable Medical Equipment (OneTouch Verio Test Strips) To check fasting blood sugar daily. E11.9 DM II. Refills: 5. Next Dose: Ergocalciferol (Vitamin D 60948 iu oral capsule) 50,000 International Unit Oral Daily. Next Dose: Esomeprazole (esomeprazole 20 mg oral enteric coated capsule) 1 capsule Oral Daily. Refills: 3. Next Dose: GlipiZIDE (glipiZIDE 5 mg oral tablet, extended release) 3 tab(s) Oral Daily for 30 Days. Refills: 3. Next Dose: Hydrochlorothiazide/Triamterene (hydrochlorothiazide-triamterene 25 mg-37.5 mg oral capsule) 1 capsule Oral Daily. Refills: 1. Next Dose: Levothyroxine (Synthroid 0.05 mg oral tablet) 1 tab(s) Oral Daily. TAKE 2TABLETS ON MONDAY. Refills: 1. Next Dose: Loratadine (loratadine 10 mg oral tablet) 1 tab(s) Oral Daily. Refills: 1. Next Dose: Losartan (losartan 50 mg oral tablet) 1 tab(s) Oral Daily. Refills: 3. Next Dose: Miscellaneous Rx (Magnesium) Next Dose: Miscellaneous Rx (Probiotic) Next Dose: Multivitamin Daily. Next Dose: Ferguson-3 Polyunsaturated Fatty Acids (Ferguson-3 oral capsule) one daily. Next Dose: Rosuvastatin (rosuvastatin 10 mg oral tablet) 1 tab(s) Oral Daily. Refills: 1. Next Dose: Timolol Ophthalmic (timolol maleate 0.5% ophthalmic solution) 1 Drops Both eyes twice a day. Next Dose: Allergy Info:?? metFORMIN; ALVARO inhibitors; Latex; Bactrim; Macrobid; beta blockers; cefuroxime Medications Given This Visit Future Orders ?Hepatic Function Panel? Order Date:02/07/23?- Complete on or after?02/07/23 ?Magnesium Level? Order Date:02/07/23?- Complete on or after?02/07/23 Vital Signs Height 161 cm Weight 85.8 kg BMI 33.1 kg/m2 Blood Pressure 104 mm Hg/67 mm Hg Temperature Pulse Rate 78 bpm Respiratory Rate 02 Sat Mode of Delivery 98 %/ You can now view a summary of your hospital visit from the comfort of your home through a free online portal called [employer]. [employer] is a website that allows you to securely view your medical information including discharge summary, medications and follow-up visits. ??You can alsosend a secure electronic message to your doctor???s office to request appointments, renew medications or just ask a question. You can enroll at [email or web address] or register during your next office [...] primary care provider, you may find a [facility] provider by calling [facility] [employer] [facility] at [phone]. For information about the plan of care [...] Professional Member Role: PCP Address: Address: [address] [place] [address] [place] [address]- Care Team Related Persons Name: ALBA TATE Address: home [address] [place] [address]
--- OUTSIDE RECORDS SUMMARY | 2023-11-15 15:35 | XMS_ITS | Continuity of Care Document ---
Author Organization [facility] José Luis Lalit lt Address [address] [place] [address]- Care Team Providers Care Program Therapist Name Role Phone Dionicio ANTON, Lucy Yanez Primary Care Physician [phone] [place] [facility] [place] 04/28/21 - 05/28/21 [facility] Riccardo Ordonez Adult [address] [place] [address]- Attending Physician: AdmDamián pagan Admitting Physician: AdmtrDamián Referring Physician: Admtr, [id number] [...] 03/08/21 9:39:00 EDT, Route to Pharmacy Electronically, [facility]/pharmacy #[id number], 161.5, cm, 12/30/20 11:09:00 EDT, [...] Required Details Start Date: 05/06/19 Status: Ordered Cypress-3 oral capsule See Instructions, one daily, 0 [...]
--- OUTSIDE RECORDS SUMMARY | 2023-11-15 15:35 | XMS_ITS | Continuity of Care Document ---
Author Organization [facility] Riccardo Ordonez Lalit lt Address [address] [place] [address]- Care Team Providers Care Imaging Account Manager Name Role Phone Dionicio ANTON, Luyc Yanez Primary Care Physician Encounter [facility] Date(s): 10/05/23 - 11/04/23 [facility] Riccardo Ordonez Adult [address] [place] [address]- Allergies, Adverse Reactions, Alerts Substance Reaction Severity [...] (oldterm) 1 04/19/23 Recor ded SARS-CoV-2 mRNA (djnazbk-pznw-ovzjm) vax 2 04/19/23 Recorded influenza virus vaccine, inactivated 04/05/22 Boyd rded influenza virus vaccine, inactivated 04/28/21 Give n influenza virus vaccine, inactivated 04/22/20 Give n influenza virus vaccine, inactivated 04/09/19 Boyd rded influenza virus vaccine, inactivated 03/28/18 Obyd rded [id number] bivalent booster vax 04/02/22 Recorded SARS-CoV-2 (COVID-19) mRNA-1273 vaccine 11/25/21 R ecorded SARS-CoV-2 (COVID-19) mRNA BNT-162b2 vac 04/22/21 Recorded SARS-CoV-2 (COVID-19) mRNA BNT-162b2 vac 09/09/20 Given SARS-CoV-2 (COVID-19) mRNA BNT-162b2 vac 08/19/20 Recorded zoster vaccine, inactivated 04/06/19 Recorded [facility] [place] [facility] [place] Medications Accu-Chek Paradise Glucose Meter See Instructions, [...] Refills, Maintenance, 09/03/23 6:59:00 EST, [facility], 161, cm, 05/16/23 10:58:00 EDT, Height, 84.7, kg, 05/04/23 15:05:00 EDT, Dry Weight Start Date: 09/03/23 Status: Ordered esomeprazole 20 mg oral enteric coated capsule 1 capsule, By Mouth, Daily, # 90 capsule, 3 Refills, Maintenance, 01/27/23 9:13:00 EDT, [facility], 161, cm, 10/28/22 13:31:00 [...] Date: 10/11/23 Status: Ordered Freestyle Ortiz 2 [place] Freestyle Ortiz 2 [place], See Instructions, # 1 each, Refills 0, [...] Refills, Maintenance, 09/05/23 6:39:00 EST, [facility], 90, TAKE 1 CAPSULE DAILY, 161, cm, 05/16/23 10:58:00 EDT, Height, 84.7, kg, 05/04/23 15:05:00 EDT, Dry Weight Start Date: 09/05/23 Status: Ordered Januvia 50 mg oral tablet 1 tablet = 50 mg, By Mouth, Daily, # 90 tablet, 2 Refills, Maintenance, 10/11/23 7:41:00 EDT, Tablet, [facility], Partial fill [...] 02/29/24 11:33:00 EDT, 09/02/23 11:33:00 EST, [facility], 161, cm, 02/22/23 11:03:00 [...] 10:55:00 EDT Start Date: 02/21/20 Status: Ordered [place]-3 oral capsule 0 Refills, Maintenance, 09/13/23 15:32:00 [...] 1 Refills, Maintenance, 09/05/23 23:33:00 EST, [facility], 161, cm, 05/16/23 10:58:00 EDT, Height, 84.7, kg, 05/04/23 15:05:00 EDT, Dry Weight Start Date: 09/05/23 Status: Ordered Synthroid 0.05 mg oral tablet 1 tablet, By Mouth, Daily, TAKE 2TABLETS ON MONDAY, # 102 tablet, 1 Refills, Maintenance, 06/20/23 10:22:00 EST, [facility], 161, cm, 05/16/23 10:58:00 EDT, Height, 84.7, kg, 05/04/23 15:05:00 EDT, Dry Weight Start Date: 06/20/23 Status: Ordered timolol maleate 0.5% ophthalmic solution 1 drops, Eyes, Both, 2 times a day, # 10 mL, 0 Refills, Maintenance, 12/27/19 10:36:00 EDT, Solution Start Date: 12/27/19 Status: Ordered Vitamin D 26540 iu oral capsule 50,000 International_Units, By Mouth, [...] Team Personnel Name: Lucy Greenberg NP Position: [facility] PCO Associate Professional Member Role: PCP Address: Address: [address] [facility] [place] [address]- Care Team Related Persons Name: ALBA TATE Address: home [address] [place] [address]
--- OUTSIDE RECORDS SUMMARY | 2023-11-15 15:35 | XMS_ITS | Continuity of Care Document ---
Author Organization [facility] José Luis Lalit lt Address [address] [place] [address]- Care Team Providers Care Wallpaper Printer Helper Name Role Phone Dionicio ANTON, Lucy Yanez Primary Care Physician [place] [facility]/25[place]21 - 06/24/21 [facility] Riccardo Ordonez Adult [address] [place] [address]- Allergies, Adverse Reactions, Alerts Substance Reaction Severity [...] Required Details Start Date: 05/06/19 Status: Ordered [place]-3 oral capsule See Instructions, one daily, 0 [...]
--- OUTSIDE RECORDS SUMMARY | 2023-11-15 15:35 | XMS_ITS | Continuity of Care Document ---
Author Organization [facility] José Luis Lalit lt Address [address] [place] [address]- Care Team Providers Care Steam Shovel Engineer Name Role Phone Dionicio ANTON, Lucy Yanez Primary Care Physician [place] [facility] [place] 10/31/22 - 11/30/22 [facility] [place] Adult [address] [place] [address]- Allergies, Adverse Reactions, Alerts Substance Reaction Severity [...] Maintenance, 10/31/22 11:47:00 EDT, [id number], 161, cm, 10/28/22 13:31:00 EDT, Height, 86.9, [...] capsule, 0 Refills, Maintenance, 09/08/22 10:27:00 EST, [facility], 161, cm, 08/30/22 14:54:00 EST, Height, 88.9, kg, 08/30/22 14:54:00 EST, Dry Weight Start Date: 09/08/22 Status: Ordered glipiZIDE 10 mg oral tablet 1 tablet = 10 mg, By Mouth, 2 times a day, # 60 tablet, 3 Refills, Maintenance, 11/10/22 6:48:00 EDT, Tablet, [facility], Partial fill upon patient request if the prescription is for a schedule II opioid drug., 161, cm, 10/28/22... Start Date: 11/10/22 Stop Date: 03/10/23 Status: Ordered hydrochlorothiazide-triamterene 25 mg-37.5 mg oral capsule 1 capsule, By Mouth, Daily, # 90 capsule, 1 Refills, Maintenance, 09/08/22 10:28:00 EST, [facility], 0, 1 capsule By Mouth Daily, 161, cm, 08/30/22 14:54:00 EST, Height, 88.9, kg, 08/30/22 14:54:00 EST, Dry Weight Start Date: 09/08/22 Status: Ordered levothyroxine 0.05 mg oral tablet See Instructions, TAKE 1 TABLET DAILY, TAKE 2 TABLETS ON MONDAY, # 102 tablet, 0 Refills, 09/08/22 10:27:00 EST, [facility], 161, cm, 08/30/22 14:54:00 EST, Height, 88.9, kg, 08/30/22 14:54:00 EST, Dry Weight Start Date: 09/08/22 Status: Ordered loratadine 10 mg oral tablet 1, tablet, By Mouth, Daily, # 90 tablet, Refills 1, Route to Pharmacy Electronically, [id number], 161.5, cm, 08/16/21 14:16:00 EST, Height Start Date: 09/03/21 Status: Ordered losartan 50 mg oral tablet 1 tablet, By Mouth, Daily, # 90 tablet, 3 Refills, 09/08/22 10:28:00 EST, [facility], 161, cm, 08/30/22 14:54:00 EST, Height, 88.9, kg, 08/30/22 14:54:00 EST, Dry Weight Start Date: 09/08/22 Status: Ordered Magnesium Magnesium, 0 Refills, Maintenance, 02/02/22 13:23:00 EDT Start Date: 02/02/22 Status: Ordered Multivitamin Daily, 0 Refills, Maintenance, 02/21/20 10:55:00 EDT Start Date: 02/21/20 Status: Ordered Sorento-3 oral capsule See Instructions, one daily, 0 [...] 1 Refills, Maintenance, 09/08/22 10:29:00 EST, [facility], 161, cm, [...] Start Date: 02/02/22 Status: Ordered Vitamin D 60215 iu oral capsule 50,000 International_Units, By Mouth, [...] Associate Professional Member Role: PCP Address: Address: [address] [place] [address]- Care Team Related Persons Name: ALBA TATE Address: home [address] [place] [address]
--- OUTSIDE RECORDS SUMMARY | 2023-11-15 15:35 | XMS_ITS | Continuity of Care Document ---
Author Organization [facility] José Luis Lalit lt Address [address] [place] [address]- Care Team Providers Care Window Systems Administrator Name Role Phone Dionicio ANTON, Lucy Yanez Primary Care Physician [phone] [place] [facility](s): 11/25/20 - 12/25/20 [facility] Adult [address] [place] [address]- Allergies, Adverse Reactions, Alerts Substance Reaction Severity [...] evening, # 90 tablet, 3 Refills, Maintenance, 10/26/20 14:29:00 EDT, [facility], 161.5, cm, 07/01/20 9:54:00 EST, Height Start Date: 10/26/20 Status: Ordered Multivitamin Daily, 0 Refills, Maintenance, 02/21/20 10:55:00 EDT Start Date: 02/21/20 Status: Ordered Nexium Capsule See Instructions, 22 mg 1 every other day, Refills 0, Maintenance, 05/06/19 16:33:27 EDT, Instructions Replace Required Details Start Date: 05/06/19 Status: Ordered Tyler-3 oral capsule See Instructions, one daily, 0 [...]
--- OUTSIDE RECORDS SUMMARY | 2023-11-15 15:35 | XMS_ITS | Continuity of Care Document ---
Author Organization [facility] Address [address] [place] [address]- Care Team Providers Care Scuba Diving Teacher Name Role Phone Dionicio ANTON, Lucy Yanez Primary Care Physician [facility]counter [facility] Date(s): 10/12/23 - 11/11/23 [facility] [address] [place], [place] [phone] Allergies, Adverse Reactions, Alerts Substance Reaction Severity [...] (oldterm) 1 04/19/23 Recor ded SARS-CoV-2 mRNA (vumcjkd-cpmp-nuzcy) vax 2 04/19/23 Recorded influenza virus vaccine, inactivated 04/05/22 Boyd rded influenza virus vaccine, inactivated 04/28/21 Give n influenza virus vaccine, inactivated 04/22/20 Give n influenza virus vaccine, inactivated 04/09/19 Boyd rded influenza virus vaccine, inactivated 03/28/18 Boyd rded [id number] bivalent booster vax 04/02/22 Recorded SARS-CoV-2 (COVID-19) mRNA-1273 vaccine 11/25/21 R ecorded SARS-CoV-2 (COVID-19) mRNA BNT-162b2 vac 04/22/21 Recorded SARS-CoV-2 (COVID-19) mRNA BNT-162b2 vac 09/09/20 Given SARS-CoV-2 (COVID-19) mRNA BNT-162b2 vac 08/19/20 Recorded zoster vaccine, inactivated 04/06/19 Recorded 1Result Comment: [facility] [place] 2Result Comment: [facility] [place] Medications Accu-Chek Paradise Glucose Meter See Instructions, [...] Refills, Maintenance, 09/03/23 6:59:00 EST, [facility], 161, cm, 05/16/23 10:58:00 EDT, Height, 84.7, kg, 05/04/23 15:05:00 EDT, Dry Weight Start Date: 09/03/23 Status: Ordered esomeprazole 20 mg oral enteric coated capsule 1 capsule, By Mouth, Daily, # 90 capsule, 1 Refills, Maintenance, 11/09/23 21:34:00 EDT[facility], 161, cm, 09/19/23 7:29:00 EST, [...] Date: 10/11/23 Status: Ordered Freestyle Ortiz 2 [place] Freestyle Ortiz 2 [place], See Instructions, # 1 each, Refills 0, [...] Refills, Maintenance, 09/05/23 6:39:00 EST, [facility], 90, TAKE 1 CAPSULE DAILY, 161, cm, 05/16/23 10:58:00 EDT, Height, 84.7, kg, 05/04/23 15:05:00 EDT, Dry Weight Start Date: 09/05/23 Status: Ordered Januvia 50 mg oral tablet 1 tablet = 50 mg, By Mouth, Daily, # 90 tablet, 2 Refills, Maintenance, 10/11/23 7:41:00 EDT, Tablet, [facility], [...] 10:55:00 EDT Start Date: 02/21/20 Status: Ordered Paradise-3 oral capsule 0 Refills, Maintenance, 09/13/23 15:32:00 [...] Maintenance, 11/09/23 21:33:00 EDT, [facility], 161, cm, 09/19/23 7:29:00 EST, Height, 82.7, kg, 09/13/23 14:43:00 EST, Dry Weight Start Date: 11/09/23 Status: Ordered timolol maleate 0.5% ophthalmic solution 1 drops, Eyes, Both, 2 times a day, # 10 mL, 0 Refills, Maintenance, 12/27/19 10:36:00 EDT, Solution Start Date: 12/27/19 Status: Ordered Vitamin D 18990 iu oral capsule 50,000 International_Units, By Mouth, [...] Professional Member Role: PCP Address: Address: [address] [facility] [place] [address]- Care Team Related Persons Name: ALBA TATE Address: home [address] [place] [address]
--- OUTSIDE RECORDS SUMMARY | 2023-11-15 15:35 | XMS_ITS | Continuity of Care Document ---
Author Organization [facility] Lalit Address [address] [place] [address]- Care Team Providers Care Substation Operator Helper Name Role Phone Dionicio ANTON, Lucy Yanez Primary Care Physician [place] [facility] [place] Date(s): 01/30/20 - 02/29/20 [facility] Adult [address] [place] [address]- [facility] Allergies, Adverse Reactions, Alerts Substance Reaction Severity [...] 04/10/20 8:57:00 EDT, 02/10/20 8:57:00 EDT, [facility], 161.5, cm, 01/07/20 15:02:00 EDT, [...] 3 Refills, Maintenance, 01/14/20 11:32:00 EDT, [facility], 161.5, cm, 01/07/20 15:02:00 EDT, Height Start Date: 01/14/20 Status: Ordered Multivitamin Daily, 0 Refills, Maintenance, 02/21/20 10:55:00 EDT Start Date: 02/21/20 Status: Ordered Nexium Capsule See Instructions, 22 mg 1 every other day, Refills 0, Maintenance, 05/06/19 16:33:27 EDT, Instructions Replace Required Details Start Date: 05/06/19 Status: Ordered Dorset-3 oral capsule See Instructions, one daily, 0 [...]
--- OUTSIDE RECORDS SUMMARY | 2023-11-15 15:35 | XMS_ITS | Continuity of Care Document ---
Author Organization [facility] Riccardo Ordonez Lalit lt Address [address] [place] [address]- Care Team Providers Care Auto Crane Driver Name Role Phone Dionicio ANTON, Lucy Yanez Primary Care Physician [facility] Date(s): 10/12/23 - 11/11/23 [facility] Riccardo Ordonez Adult [address] [place] [address]- Allergies, Adverse Reactions, Alerts Substance Reaction Severity [...] (oldterm) 1 04/19/23 Recor ded SARS-CoV-2 mRNA (ykktkne-egkm-tfmhd) vax 2 04/19/23 Recorded influenza virus vaccine, inactivated 04/05/22 Boyd rded influenza virus vaccine, inactivated 04/28/21 Give n influenza virus vaccine, inactivated 04/22/20 Give n influenza virus vaccine, inactivated 04/09/19 Boyd rded influenza virus vaccine, inactivated 03/28/18 Boyd rded [id number] bivalent booster vax 04/02/22 Recorded SARS-CoV-2 (COVID-19) mRNA-1273 vaccine 11/25/21 R ecorded SARS-CoV-2 (COVID-19) mRNA BNT-162b2 vac 04/22/21 Recorded SARS-CoV-2 (COVID-19) mRNA BNT-162b2 vac 09/09/20 Given SARS-CoV-2 (COVID-19) mRNA BNT-162b2 vac 08/19/20 Recorded zoster vaccine, inactivated 04/06/19 Recorded 1Result Comment: [facility] [place] 2Result Comment: [facility] [place] Medications Accu-Chek Paradise Glucose Meter See Instructions, [...] 1 Refills, Maintenance, 11/09/23 21:34:00 EDT, [facility], [facility], cm, 09/19/23 7:29:00 [...] Date: 10/11/23 Status: Ordered Freestyle Ortiz 2 [place] Freestyle Ortiz 2 [place], See Instructions, # 1 each, Refills 0, [...] 2 Refills, Maintenance, 10/11/23 7:41:00 EDT, Tablet, [facility], Partial fill [...] 10:55:00 EDT Start Date: 02/21/20 Status: Ordered [place]-3 oral capsule 0 Refills, Maintenance, 09/13/23 [...] 1 Refills, Maintenance, 09/05/23 23:33:00 EST, [facility], 161, cm, 05/16/23 10:58:00 EDT, Height, 84.7, kg, 05/04/23 15:05:00 EDT, Dry Weight Start Date: 09/05/23 Status: Ordered Synthroid 0.05 mg oral tablet 1 tablet, By Mouth, Daily, TAKE 2TABLETS ON MONDAY, # 102 tablet, 1 Refills, Maintenance, 11/09/23 21:33:00 EDT, [facility], 161, cm, 09/19/23 7:29:00 EST, Height, 82.7, kg, 09/13/23 14:43:00 EST, Dry Weight Start Date: 11/09/23 Status: Ordered timolol maleate 0.5% ophthalmic solution 1 drops, Eyes, Both, 2 times a day, # 10 mL, 0 Refills, Maintenance, 12/27/19 10:36:00 EDT, Solution Start Date: 12/27/19 Status: Ordered Vitamin D 90631 iu oral capsule 50,000 International_Units, By Mouth, [...] Professional Member Role: PCP Address: Address: [address] [facility] [place] [address]- Care Team Related Persons Name: ALBA TATE Address: home [address] [place] [address]
--- OUTSIDE RECORDS SUMMARY | 2023-11-15 15:35 | XMS_ITS | Continuity of Care Document ---
Author Organization [facility] José Luis Lalit lt Address [address] [place] [address]- Care Team Providers Care Stereotyper Apprentice Name Role Phone Dionicio ANTON, Lucy Yanez Primary Care Physician [phone] Encounter [facility] Date(s): 12/28/22 - 01/27/23 [facility] Riccardo Ordonez Adult [address] [place] [address]- Allergies, Adverse Reactions, Alerts Substance Reaction Severity [...] tablet, 0 Refills, Maintenance, 10/31/22 11:47:00 EDT, [id number], 161, cm, 10/28/22 13:31:00 EDT, Height, 86.9, [...] tablet, 3 Refills, Maintenance, 01/27/23 15:23:00 EDT, [facility], Partial fill [...] Route to Pharmacy Electronically, [id number], 161.5, cm, 08/16/21 14:16:00 EST, Height Start Date: 09/03/21 Status: Ordered losartan 50 mg oral tablet 1 tablet, By Mouth, Daily, # 90 tablet, 3 Refills, 09/08/22 10:28:00 EST, [facility], 161, cm, 08/30/22 14:54:00 EST, Height, 88.9, kg, 08/30/22 14:54:00 EST, Dry Weight Start Date: 09/08/22 Status: Ordered Magnesium Magnesium, 0 Refills, Maintenance, 02/02/22 13:23:00 EDT Start Date: 02/02/22 Status: Ordered Multivitamin Daily, 0 Refills, Maintenance, 02/21/20 10:55:00 EDT Start Date: 02/21/20 Status: Ordered [place]-3 oral capsule See Instructions, one daily, 0 [...] tablet, 1 Refills, Maintenance, 09/08/22 10:29:00 EST, [facility], 161, cm, 08/30/22 14:54:00 EST, Height, 88.9, kg, 08/30/22 14:54:00 EST, Dry Weight Start Date: 09/08/22 Status: Ordered Synthroid 0.05 mg oral tablet 1 tablet, By Mouth, Daily, TAKE 2TABLETS ON MONDAY, # 102 tablet, 1 Refills, Maintenance, 01/27/23 4:55:00 EDT, [facility], 161, cm, 10/28/22 13:31:00 EDT, Height, [...] Start Date: 02/02/22 Status: Ordered Vitamin D 89488 iu oral capsule 50,000 International_Units, By Mouth, [...] Personnel Name: Dionicio ANTON, Lucy Yanez Position: [facility] PCO Associate Professional Member Role: PCP Address: Address: [address] [place] [address]- Care Team Related Persons Name: ALBA TATE Address: [address] [place] [address]
--- OUTSIDE RECORDS SUMMARY | 2023-11-15 15:35 | XMS_ITS | Continuity of Care Document ---
Author Organization [facility] José Luis Lalit lt Address [address] [place] [address]- Care Team Providers Care Lecturer Of Portuguese Name Role Phone Dionicio ANTON, Lucy Yanez Primary Care Physician [place] [facility] [place](s): 04/21/20 - 05/21/20 [facility] [place] Adult [address] [place] [address]- Allergies, Adverse Reactions, Alerts Substance Reaction Severity [...] 3 Refills, Maintenance, 01/14/20 11:32:00 EDT, [facility], 161.5, cm, 01/07/20 15:02:00 EDT, Height Start Date: 01/14/20 Status: Ordered Multivitamin Daily, 0 Refills, Maintenance, 02/21/20 10:55:00 EDT Start Date: 02/21/20 Status: Ordered Nexium Capsule See Instructions, 22 mg 1 every other day, Refills 0, Maintenance, 05/06/19 16:33:27 EDT, Instructions Replace Required Details Start Date: 05/06/19 Status: Ordered [place]-3 oral capsule See Instructions, one daily, 0 [...]
--- OUTSIDE RECORDS SUMMARY | 2023-11-15 15:35 | XMS_ITS | Continuity of Care Document ---
Author Organization [facility] José Luis Lalit lt Address [address] [place] [address]- Care Team Providers Care Program Developer Name Role Phone Dionicio ANTON, Lucy Yanez Primary Care Physician [phone] [place] [facility] [place](s): 10/27/20 - 11/26/20 [facility] Adult [address] [place] [address]- Allergies, Adverse Reactions, Alerts Substance Reaction Severity [...] 3 Refills, Maintenance, 10/26/20 14:29:00 EDT, [facility], 161.5, cm, 07/01/20 9:54:00 EST, Height Start Date: 10/26/20 Status: Ordered Multivitamin Daily, 0 Refills, Maintenance, 02/21/20 10:55:00 EDT Start Date: 02/21/20 Status: Ordered Nexium Capsule See Instructions, 22 mg 1 every other day, Refills 0, Maintenance, 05/06/19 16:33:27 EDT, Instructions Replace Required Details Start Date: 05/06/19 Status: Ordered [place]-3 oral capsule See Instructions, one daily, 0 [...]
--- OUTSIDE RECORDS SUMMARY | 2023-11-15 15:35 | XMS_ITS | Continuity of Care Document ---
Author Organization [facility] José Luis Lalit lt Address [address] [place] [address]- Care Team Providers Care Lunchroom Monitor Name Role Phone Dionicio ANTON, Lucy Yanez Primary Care Physician Encounter [facility] [place] [place] Date(s): 11/18/21 - 12/18/21 [facility] José Luis Adult [address] [place] [address]- Allergies, Adverse Reactions, Alerts Substance Reaction Severity [...] tablet, Refills 1, Route to Pharmacy Electronically, [facility], 161.5, cm, 08/16/21 14:16:00 EST, Height Start Date: 09/03/21 Status: Ordered losartan 50 mg oral tablet 50 mg, 1, tablet, By Mouth, Daily, # 90 tablet, Refills 3, Tot. Refills 3, Maintenance, 12/30/20 11:48:00 EDT, Route to Pharmacy Electronically, [facility], 161.5, cm, 12/30/20 11:09:00 EDT, Height Start Date: 12/30/20 Status: Ordered Multivitamin Daily, 0 Refills, Maintenance, 02/21/20 10:55:00 EDT Start Date: 02/21/20 Status: Ordered Nexium 20 mg oral enteric coated capsule 1 capsule = 20 mg, By Mouth, Daily, # 90 capsule, 1 Refills, Maintenance, 09/13/21 9:37:00 EST, EC Capsule, [facility], Partial fill upon patient request if the prescription is fora schedule II opioid drug., 161.5, cm, 09/13/21 8:5... Start Date: 09/13/21 Status: Ordered Nexium Capsule See Instructions, 22 mg 1 every other day, Refills 0, Maintenance, 05/06/19 16:33:27 EDT, Instructions Replace Required Details Start Date: 05/06/19 Status: Ordered [place]-3 oral capsule See Instructions, one daily, 0 [...]
--- OUTSIDE RECORDS SUMMARY | 2023-11-15 15:35 | XMS_ITS | Continuity of Care Document ---
Author Organization [facility] José Luis Lalit Address [address] [place] [address]- Care Team Providers Care Chief Of Harbor Patrol Name Role Phone Dionicio ANTON, Lucy Yanez Primary Care Physician Encounter [facility] [place] Date(s): 07/01/21 - 07/08/21 [facility] Adult [address] [place] [address]- Encounter Diagnosis Benign essential hypertension(Discharge Diagnosis) - 07/01/21 Anxiety(Discharge Diagnosis) - 07/01/21 Hypothyroidism(Discharge Diagnosis) - 07/01/21 Type II diabetes mellitus(Discharge Diagnosis) - 07/01/21 Attending Physician: Dionicio ANTON, Lucy Yanez Referring [...] 03/08/21 9:39:00 EDT, Route to Pharmacy Electronically, [facility]/pharmacy #[id number], 161.5, cm, 12/30/20 11:09:00 [...] Required Details Start Date: 05/06/19 Status: Ordered [place]-3 oral capsule See Instructions, one daily, 0 [...] Service Informant Benign essential hypertension Discharge Diagnosis 07/01/21 Anxiety Discharge Diagnosis 07/01/21 Hypothyroidism Discharge Diagnosis 07/01/21 Type II diabetes mellitus Discharge Diagnosis 07/01/21 Vital Signs Most recent to oldest [Reference Range]: 1 Height 161.5 cm (07/01/21 7:17 AM) Social History Social History Type Response Smoking Status Former smoker, quit more than 30 days ago entered on: 05/16/19 Sex
--- OUTSIDE RECORDS SUMMARY | 2023-11-15 15:35 | XMS_ITS | Continuity of Care Document ---
Author Organization [facility] José Luis Lalit lt Address [address] [place] [address]- Care Team Providers Care Medical Biller/Coder Name Role Phone Dionicio ANTON, Lucy Yanez Primary Care Physician [facility] Date(s): 11/09/22 - 12/09/22 [facility] Riccardo Ordonez Adult [address] [place] [address]- Allergies, Adverse Reactions, Alerts Substance Reaction Severity [...] tablet, 0 Refills, Maintenance, 10/31/22 11:47:00 EDT, [facility], 161, cm, 10/28/22 13:31:00 EDT, Height, 86.9, [...] capsule, 0 Refills, Maintenance, 12/01/22 16:17:00 EDT, [facility], 161, cm, 10/28/22 13:31:00 EDT, Height, 86.9, [...] tablet, 0 Refills, Maintenance, 12/01/22 16:17:00 EDT, [facility] 27192, 161, cm, 10/28/22 13:31:00 EDT, Height, 86.9, kg, 10/28/22 13:31:00 EDT, Dry Weight Start Date: 12/01/22 Status: Ordered loratadine 10 mg oral tablet 1, tablet, By Mouth, Daily, # 90 tablet, Refills 1, Route to Pharmacy Electronically, [facility] 84203, 161.5, cm, 08/16/21 14:16:00 EST, Height Start [...] 10:55:00 EDT Start Date: 02/21/20 Status: Ordered [place]-3 oral capsule See Instructions, one daily, 0 [...] 09/08/22 10:29:00 EST, [facility], 161, cm, 08/30/22 14:54:00 EST, [...] Start Date: 02/02/22 Status: Ordered Vitamin D 97084 iu oral capsule 50,000 International_Units, By Mouth, [...] Professional Member Role: PCP Address: Address: [address] [place] [address]- Care Team Related Persons Name: ALBA TAET Address: [address] [place] [address]
--- OUTSIDE RECORDS SUMMARY | 2023-11-15 15:36 | XMS_ITS | Continuity of Care Document ---
Author Organization [facility] José Luis Lalit lt Address [address] [place] [address]- Care Team Providers Care Water Quality Technician Name Role Phone Dionicio ANTON, Lucy Yanez Primary Care Physician [facility] Date(s): 12/05/22 - 01/04/23 [facility] Riccardo Ordonez Adult [address] [place] [address]- Allergies, Adverse Reactions, Alerts Substance Reaction Severity [...] tablet, 0 Refills, Maintenance, 10/31/22 11:47:00 EDT, [facility], 161, cm, 10/28/22 13:31:00 EDT, Height, 86.9, [...] capsule, 0 Refills, Maintenance, 12/01/22 16:17:00 EDT, [facility] 613[facility], 161, cm, 10/28/22 13:31:00 EDT, Height, 86.9, kg, 10/28/22 13:31:00 EDT, Dry Weight Start Date: 12/01/22 Status: Ordered glipiZIDE 10 mg oral tablet, extended release 1 tablet = 10 mg, By Mouth, Daily, # 90 tablet, 1 Refills, Maintenance, 12/02/22 14:40:00 EDT, [facility], Partial fill upon patient [...] tablet, 0 Refills, Maintenance, 12/01/22 16:17:00 EDT, [facility], 161, cm, 10/28/22 13:31:00 EDT, Height, 86.9, kg, 10/28/22 13:31:00 EDT, Dry Weight Start Date: 12/01/22 Status: Ordered loratadine 10 mg oral tablet 1, tablet, By Mouth, Daily, # 90 tablet, Refills 1, Route to Pharmacy Electronically, [facility] 23309, 161.5, cm, 08/16/21 14:16:00 EST, Height Start [...] 10:55:00 EDT Start Date: 02/21/20 Status: Ordered [place]-3 oral capsule See Instructions, one daily, 0 [...] Start Date: 02/02/22 Status: Ordered Vitamin D 77731 iu oral capsule 50,000 International_Units, By Mouth, [...] Professional Member Role: PCP Address: Address: [address] [place] [address]- Care Team Related Persons Name: ALBA TATE Address: home [address] [place] [address]
--- OUTSIDE RECORDS SUMMARY | 2023-11-15 15:36 | XMS_ITS | Continuity of Care Document ---
Author Organization [facility] José Luis Lalit lt Address [address] [place] [address]- Care Team Providers Care Welcome [place] Agent Name Role Phone Dionicio ANTON, Lucy Yanez Primary Care Physician [phone] Encounter [facility] [place] Date(s): 02/24/22 - 03/26/22 [facility] Riccardo Ordonez Adult [address] [place] [address]- Allergies, Adverse Reactions, Alerts Substance Reaction Severity [...] tablet, Refills 1, Route to Pharmacy Electronically, [facility] 27[facility], 161.5, cm, 08/16/21 14:16:00 EST, Height Start [...] 10:55:00 EDT Start Date: 02/21/20 Status: Ordered [place]-3 oral capsule See Instructions, one daily, 0 [...] Start Date: 02/02/22 Status: Ordered Vitamin D 26303 iu oral capsule 50,000 International_Units, By Mouth, [...] Personnel Name: Lucy Greenberg NP Address: [address] [place], [place] [address]
--- OUTSIDE RECORDS SUMMARY | 2023-11-15 15:36 | XMS_ITS | Continuity of Care Document ---
Author Organization [facility] Riccardo Ordonez Lalit lt Address [address] [place] [address]- Care Team Providers Care Wire Drawing Machine Tender Name Role Phone Dionicio ANTON, Lucy Yanez Primary Care Physician [facility]counter [facility] Date(s): 07/28/22 - 08/27/22 JOYC[facility]N Ordonez Adult [address] [place] [address]- Allergies, Adverse Reactions, Alerts Substance Reaction Severity [...] 07/22/22 14:06:00 EST, Route to Pharmacy Electronically, Pharmacy, Partial fill upon patient request if [...] tablet, 3 Refills, 10/11/21 11:14:00 EDT, [facility], 161.5, cm, 10/11/21 10:53:00 EDT, Height Start Date: 10/11/21 Status: Ordered loratadine 10 mg oral tablet 1, tablet, By Mouth, Daily, # 90 tablet, Refills 1, Route to Pharmacy Electronically, [facility] 20[facility], 161.5, cm, 08/16/21 14:16:00 EST, Height Start Date: 09/03/21 Status: Ordered LORazepam 0.5 mg oral tablet 1 tablet = 0.5 mg, By Mouth, Daily at bedtime, for 30 days, # 30 tablet, 2 Refills, Acute 10/17/22 8:19:00 EDT, 07/19/22 8:19:00 EST, [facility], 161.3, cm, 07/15/22 9:49:00 EST, Height, 88, kg, 02/02/22 13:19:00 EDT, Dry Weight Start Date: 07/19/22 Stop Date: 10/17/22 Status: Ordered losartan 50 mg oral tablet 1 tablet, By Mouth, Daily, # 90 tablet, 3 Refills, [facility], 161.5, cm, 11/11/21 12:28:00 EDT, Height Start Date: 01/19/22 Status: Ordered Magnesium Magnesium, 0 Refills, Maintenance, 02/02/22 13:23:00 EDT Start Date: 02/02/22 Status: Ordered Multivitamin Daily, 0 Refills, Maintenance, 02/21/20 10:55:00 EDT Start Date: 02/21/20 Status: Ordered [place]-3 oral capsule See Instructions, one daily, 0 [...] Start Date: 02/02/22 Status: Ordered Vitamin D 80830 iu oral capsule 50,000 International_Units, By Mouth, [...] Yanez Position: [facility] Associate Professional Member Role: PCP Address: Address: [address] [place] [address]- Care Team Related Persons Name: ALBA TATE Address: [address] [place] [address]
--- OUTSIDE RECORDS SUMMARY | 2023-11-15 15:36 | XMS_ITS | Continuity of Care Document ---
Author Organization [facility] Address [address] [place] [address]- Care Team Providers Care Owner [employer] Name Role Phone Dionicio ANTON, Lucy Yanez Primary Care Physician [phone] Encounter [facility] [place] Date(s): 09/04/23 - 11/13/23 [facility] [address] [place] [address] Encounter Diagnosis Malignant neoplasm of upper-outer quadrant of left breast in female, estrogen receptor positive(Discharge Diagnosis) - 09/13/23 Discharge Disposition: A-D/C Home Attending Physician: Kris Noe DO Admitting Physician: Kris Noe DO Referring Physician: Lucy Greenberg NP Allergies, Adverse [...] (oldterm) 1 04/19/23 Recor ded SARS-CoV-2 mRNA ([id number]-[id number]-fuwez) vax 2 04/19/23 Recorded influenza virus vaccine, inactivated 04/05/22 Boyd rded influenza virus vaccine, inactivated 04/28/21 Give n influenza virus vaccine, inactivated 04/22/20 Give n influenza virus vaccine, inactivated 04/09/19 Boyd rded influenza virus vaccine, inactivated 03/28/18 Boyd rded [id number] bivalent booster vax 04/02/22 Recorded SARS-CoV-2 (COVID-19) mRNA-1273 vaccine 11/25/21 R ecorded SARS-CoV-2 (COVID-19) mRNA BNT-162b2 vac 04/22/21 Recorded SARS-CoV-2 (COVID-19) mRNA BNT-162b2 vac 09/09/20 Given SARS-CoV-2 (COVID-19) mRNA BNT-162b2 vac 08/19/20 Recorded zoster vaccine, inactivated 04/06/19 Recorded 1Result Comment: [facility] [place] 2Result Comment: [facility] [place] Medications Accu-Chek [place] Glucose Meter See Instructions, [...] Refills, Maintenance, 09/03/23 6:59:00 EST, [facility], 161, cm, 05/16/23 10:58:00 EDT, Height, 84.7, kg, 05/04/23 15:05:00 EDT, Dry Weight Start Date: 09/03/23 Status: Ordered esomeprazole 20 mg oral enteric coated capsule 1 capsule, By Mouth, Daily, # 90 capsule, 1 Refills, Maintenance, 11/09/23 21:34:00 EDT, [facility], 161, cm, 09/19/23 7:29:00 EST, Height, [...] Date: 10/11/23 Status: Ordered Freestyle Ortiz 2 [place] Freestyle Ortiz 2 [place], See Instructions, # 1 each, Refills 0, [...] 2 Refills, Maintenance, 10/11/23 7:41:00 EDT, Tablet, [facility], Partial fill [...] 10:55:00 EDT Start Date: 02/21/20 Status: Ordered [place]-3 oral capsule 0 Refills, Maintenance, 09/13/23 15:32:00 [...] 09/05/23 23:33:00 EST, [facility], 161, cm, 05/16/23 10:58:00 EDT, Height, 84.7, kg, 05/04/23 15:05:00 EDT, Dry Weight Start Date: 09/05/23 Status: Ordered Synthroid 0.05 mg oral tablet 1 tablet, By Mouth, Daily, TAKE 2TABLETS ON MONDAY, # 102 tablet, 1 Refills, Maintenance, 11/09/23 21:33:00 EDT, [facility], 161, cm, 09/19/23 7:29:00 EST, Height, 82.7, kg, 09/13/23 14:43:00 EST, Dry Weight Start Date: 11/09/23 Status: Ordered timolol maleate 0.5% ophthalmic solution 1 drops, Eyes, Both, 2 times a day, # 10 mL, 0 Refills, Maintenance, 12/27/19 10:36:00 EDT, Solution Start Date: 12/27/19 Status: Ordered Vitamin D 81853 iu oral capsule 50,000 International_Units, By Mouth, [...] Dates Health Status Cl inical Service Informant Malignant neoplasm of upper-outer quadrant of left breast in female, estrogen receptor positive Discharge Diagnosis 09/13/23 Vital Signs Most recent to oldest [Reference Range]: 1 Height 161 cm (09/13/23 2:43 PM) Weight 82.7 kg (09/13/23 2:43 PM) Oxygen Saturation [94-100 %] 99 % (09/13/23 2:43 PM) Pulse Rate [55-90 bpm] 92 bpm *H* (09/13/23 2:43 PM) Body Mass Index [18.5-24.99 kg/m2] 31.9 kg/m2 *>HHI* (09/13/23 2:43 PM) Blood Pressure [90-138/55-84 mm Hg] 163/ 78mm Hg *H* (09/13/23 2:43 PM) Temperature [96.8-100.4 DegF] 97.8 DegF (09/13/23 2:43 PM) Mode of Delivery (Oxygen) Room air (09/13/23 2:43 PM) Blood pressure sites Arm, left (09/13/23 2:43 PM) Temperature Route Oral (09/13/23 2:43 PM) Dry Weight 82.7 kg (09/13/23 2:43 PM) Weight Obtained Via Standing scale (09/13/23 2:43 PM) Dry Weight Obtained Via Standing scale (09/13/23 2:43 PM) Social History Social History Type Response Smoking Status Former smoker, quit more than 30 days ago entered on: 05/16/19 Sex Note * Kelly Gordillo: PERFORM, SIGN, VERIFY Event Display: Patient Education/Instruction Authored Date: [id number] [facility] *Heme/Onc Adult Clinical Summary Name RENEE TATE Age 83 Years 1940 PCP Dionicio ANTON, Lucy Yanez PCP Visit Date 09/04/2023 10:19:00 Additional Instructions: Scheduled Appointments?? Future Appointments ?*BMP??So??[place] ?Phone:??--?Fax:??-- ?Appt. Date:??11/07/2023?9:50 AM ?Scheduled Provider:??Dionicio ANTON , Lucy Retana Follow-Up Instructions ?? With: Address: When: Kris Noe [address] [place] [address]/[place] [address] Business (1) 09/17/2024 1:30 PM Diagnosis Medications: Please continue your medications until treatment is completed or stopped by your provider. Discuss any questions related to medications with your provider. Medications to Continue with No Changes These medications were not printed or sent to your pharmacy Anastrozole (anastrozole 1 mg oral tablet) 1 tab(s) Oral Daily. Refills: 1. Next Dose: Durable Medical Equipment [...] Refills: 3. Next Dose: Durable Medical Equipment (Mastectomy Bra) Left breast cancer status post left lumpectomy. Refills:1. Next Dose: Durable Medical Equipment (Mastectomy Prosthesis) left breast cancer, left lumpectomy. Refills: 0. Next Dose: Durable Medical Equipment (OneTouch Verio Lancets) To check fasting blood sugar daily. E11.9 DM II. Refills: 5. Next Dose: Durable Medical Equipment (OneTouch Verio Test Strips) To check fasting blood sugar daily. E11.9 DM II. Refills: 5. Next Dose: Ergocalciferol (Vitamin D 88727 iu oral capsule) 50,000 International Unit Oral Daily. Next Dose: Esomeprazole (esomeprazole 20 mg oral enteric coated capsule) 1 capsule Oral Daily. Refills: 3. Next Dose: GlipiZIDE (GlipiZIDE XL 10 mg oral tablet, extended release) 2 tab(s) Oral Daily. Refills: 3. Next Dose: Hydrochlorothiazide/Triamterene (hydrochlorothiazide-triamterene 25 mg-37.5 mg oral capsule) 1 capsule Oral Daily. Refills: 1. Next Dose: Latanoprost Ophthalmic (latanoprost 0.005% ophthalmic solution) 1 Drops Both eyes Daily at Bedtime. Next Dose: Levothyroxine (Synthroid 0.05 mg oral tablet) 1 tab(s) Oral Daily. TAKE 2TABLETS ON MONDAY. Refills: 1. Next Dose: Losartan (losartan 50 mg oral tablet) 1 tab(s) Oral Daily for 90 Days. Refills: 1. Next Dose: Multivitamin Daily. Next Dose: Rosuvastatin (rosuvastatin 10 mg oral tablet) 1 tab(s) Oral Daily. Refills: 1. Next Dose: Timolol Ophthalmic (timolol maleate 0.5% ophthalmic solution) 1 Drops Both eyes twice a day. Next Dose: Allergy Info:?? metFORMIN; ALVARO inhibitors; Latex; Bactrim; Macrobid; beta blockers; cefuroxime Medications Given This Visit Future Orders ?No future orders Vital Signs Height 161 cm Weight 82.7 kg BMI 31.9 kg/m2 Blood Pressure 163 mm Hg/78 mm Hg Temperature 97.8 DegF Pulse Rate 92 bpm Respiratory Rate 02 Sat Mode of Delivery 99 %/Room air You can now view a summary of your hospital visit from the comfort of your home through a free online portal called [employer]. [employer] is a website that allows you to securely view your medical information including discharge summary, medications and follow-up visits. ??You can alsosend a secure electronic message to your doctor???s office to request appointments, renew medications or just ask a question. You can enroll at [email or web address] or register during your next office [...] primary care provider, you may find a [facility] provider by calling [facility] at [phone]. [facility], in keeping with [facility] guidance, no longer requires face masks for staff, patientsor visitors in most situations. Similar to time spent indoors at other locations, there is the chance that you were exposed to respiratory viruses during your time with us (such as flu or COVID-19).? If you develop symptoms concerning for a viral respiratory infection, please seek testing (and treatment if indicated) from your medical provider or home test kit. For information about the plan of care [...] Personnel Name: Dionicio ANTON, Lucy Yanez Position: [facility] Associate Professional Member Role: PCP Address: Address: [address] [place] [address]- Care Team Related Persons Name: ALBA TATE Address: [address] [address]
--- OUTSIDE RECORDS SUMMARY | 2023-11-15 15:36 | XMS_ITS | Continuity of Care Document ---
Author Organization [facility] Riccardo Ordonez Lalit lt Address [address] [place] [address]- Care Team Providers Care Corporate Associate Attorney Name Role Phone Dionicio ANTON, Lucy Yanez Primary Care Physician [facility]counter [facility] Date(s): 09/26/23 - 11/09/23 JOYCELYN Ordonez Adult [address] [place] [address]- Attending Physician: Not on Staff, Attending MD [...] (oldterm) 1 04/19/23 Recor ded SARS-CoV-2 mRNA (xpkdhwk-ktma-[id number]) vax 2 04/19/23 Recorded influenza virus vaccine, inactivated 04/05/22 Boyd rded influenza virus vaccine, inactivated 04/28/21 Give n influenza virus vaccine, inactivated 04/22/20 Give n influenza virus vaccine, inactivated 04/09/19 Boyd rded influenza virus vaccine, inactivated 03/28/18 Boyd rded [id number] bivalent booster vax 04/02/22 Recorded SARS-CoV-2 (COVID-19) mRNA-1273 vaccine 11/25/21 R ecorded SARS-CoV-2 (COVID-19) mRNA BNT-162b2 vac 04/22/21 Recorded SARS-CoV-2 (COVID-19) mRNA BNT-162b2 vac 09/09/20 Given SARS-CoV-2 (COVID-19) mRNA BNT-162b2 vac 08/19/20 Recorded zoster vaccine, inactivated 04/06/19 Recorded 1Result Comment: [facility] [place] 2Result Comment: [facility] [place] Medications Accu-Chek [place] Glucose Meter See Instructions, [...] Refills, Maintenance, 09/03/23 6:59:00 EST, [facility], 161, cm, 05/16/23 10:58:00 EDT, Height, 84.7, kg, 05/04/23 15:05:00 EDT, Dry Weight Start Date: 09/03/23 Status: Ordered esomeprazole 20 mg oral enteric coated capsule 1 capsule, By Mouth, Daily, # 90 capsule, 1 Refills, Maintenance, 11/09/23 21:34:00 EDT, [facility], 161, cm, 09/19/23 7:29:00 EST, [...] Date: 10/11/23 Status: Ordered Freestyle Ortiz 2 [place] Freestyle Ortiz 2 [place], See Instructions, # 1 each, Refills 0, [...] Refills, Maintenance, 09/05/23 6:39:00 EST, [facility], 90, TAKE 1 CAPSULE DAILY, 161, cm, 05/16/23 10:58:00 EDT, Height, 84.7, kg, 05/04/23 15:05:00 EDT, Dry Weight Start Date: 09/05/23 Status: Ordered Januvia 50 mg oral tablet 1 tablet = 50 mg, By Mouth, Daily, # 90 tablet, 2 Refills, Maintenance, 10/11/23 7:41:00 EDT, Tablet, [facility], Partial fill upon [...] Stop 02/29/24 11:33:00 EDT, 09/02/23 11:33:00 EST, [facility], 161, cm, 02/22/23 11:03:00 EDT, [...] 10:55:00 EDT Start Date: 02/21/20 Status: Ordered [place]-3 oral capsule 0 Refills, Maintenance, 09/13/23 15:32:00 [...] Maintenance, 09/05/23 23:33:00 EST, [facility], 161, cm, 05/16/23 10:58:00 EDT, Height, 84.7, kg, 05/04/23 15:05:00 EDT, Dry Weight Start Date: 09/05/23 Status: Ordered Synthroid 0.05 mg oral tablet 1 tablet, By Mouth, Daily, TAKE 2TABLETS ON MONDAY, # 102 tablet, 1 Refills, Maintenance, 11/09/23 21:33:00 EDT, [facility], 161, cm, 09/19/23 7:29:00 EST, Height, 82.7, kg, 09/13/23 14:43:00 EST, Dry Weight Start Date: 11/09/23 Status: Ordered timolol maleate 0.5% ophthalmic solution 1 drops, Eyes, Both, 2 times a day, # 10 mL, 0 Refills, Maintenance, 12/27/19 10:36:00 EDT, Solution Start Date: 12/27/19 Status: Ordered Vitamin D 25521 iu oral capsule 50,000 International_Units, By Mouth, [...] Personnel Name: Dionicio ANTON, Lucy Yanez Position: [facility] Associate Professional Member Role: PCP Address: Address: [address] [place] [address]- Care Team Related Persons Name: ALBA TATE Address: [place] [address] [place] [address]
--- OUTSIDE RECORDS SUMMARY | 2023-11-15 15:36 | XMS_ITS | Continuity of Care Document ---
Author Organization [facility] Riccardo Ordonez Lalit lt Address [address] [place] [address]- Care Team Providers Care Rivet Tosser Name Role Phone Dionicio ANTON, Lucy Yanez Primary Care Physician [phone] [place] [facility] [place] - 08/03/22 [facility] Riccardo Ordonez Adult [address] [place] [address]- Allergies, Adverse Reactions, Alerts Substance Reaction Severity [...] Route to Pharmacy Electronically, [facility], Partial fill [...] tablet, Refills 1, Route to Pharmacy Electronically, [facility], 161.5, cm, 08/16/21 14:16:00 EST, Height Start Date: 09/03/21 Status: Ordered LORazepam 0.5 mg oral tablet 1 tablet = 0.5 mg, By Mouth, Daily at bedtime, for 30 days, # 30 tablet, 2 Refills, Acute 10/17/22 8:19:00 EDT, 07/19/22 8:19:00 EST, [facility], 161.3, cm, 07/15/22 9:49:00 EST, [...] 10:55:00 EDT Start Date: 02/21/20 Status: Ordered [place]-3 oral capsule See Instructions, one daily, 0 [...] Start Date: 02/02/22 Status: Ordered Vitamin D 19418 iu oral capsule 50,000 International_Units, By Mouth, [...] Professional Member Role: PCP Address: Address: [address] [place] [address]- Care Team Related Persons Name: ALBA TATE
--- OUTSIDE RECORDS SUMMARY | 2023-11-15 15:36 | XMS_ITS | Continuity of Care Document ---
Author Organization [facility] Riccardo Ordonez Lalit lt Address [address] [place] [address]- Care Team Providers Care Coater Carbon Paper Name Role Phone Dionicio ANTON, Lucy Yanez Primary Care Physician En[place] [facility] [place] Date(s): 01/21/20 - 02/20/20 [facility] Adult [address] [place] [address]- [facility] Allergies, Adverse Reactions, Alerts Substance Reaction [...] weeks, # 90 tablet, 1 Refills, Maintenance, 07/27/20 12:07:00 EDT, [facility], 161.5, [...] Required Details Start Date: 05/06/19 Status: Ordered [place]-3 oral capsule See Instructions, one daily, 0 [...]
--- OUTSIDE RECORDS SUMMARY | 2023-11-15 15:36 | XMS_ITS | Continuity of Care Document ---
Author Organization [facility] Riccardo Ordonez Lalit lt Address [address] [place] [address]- Care Team Providers Care Power Truck Driver Name Role Phone Dionicio ANTON, Lucy Yanez Primary Care Physician Encounter [facility] Date(s): 09/28/23 - 10/28/23 [facility] Riccardo Ordonez Adult [address] [place] [address]- Allergies, Adverse Reactions, Alerts Substance Reaction Severity [...] (oldterm) 1 04/19/23 Recor ded SARS-CoV-2 mRNA (omwlexb-cdjs-wyhez) vax 2 04/19/23 Recorded influenza virus vaccine, inactivated 04/05/22 Boyd rded influenza virus vaccine, inactivated 04/28/21 Give n influenza virus vaccine, inactivated 04/22/20 Give n influenza virus vaccine, inactivated 04/09/19 Boyd rded influenza virus vaccine, inactivated 03/28/18 Boyd rded [id number] bivalent booster vax 04/02/22 Recorded SARS-CoV-2 (COVID-19) mRNA-1273 vaccine 11/25/21 R ecorded SARS-CoV-2 (COVID-19) mRNA BNT-162b2 vac 04/22/21 Recorded SARS-CoV-2 (COVID-19) mRNA BNT-162b2 vac 09/09/20 Given SARS-CoV-2 (COVID-19) mRNA BNT-162b2 vac 08/19/20 Recorded zoster vaccine, inactivated 04/06/19 Recorded 1Result Comment: [facility] [place] 2Result Comment: [facility] [place] Medications Accu-Chek [place] Glucose Meter See Instructions, [...] capsule, 3 Refills, Maintenance, 01/27/23 9:13:00 EDT, [facility], 161, cm, 10/28/22 13:31:00 [...] Date: 10/11/23 Status: Ordered Freestyle Ortiz 2 [place] Freestyle Ortiz 2 [place], See Instructions, # 1 each, Refills 0, [...] 10:55:00 EDT Start Date: 02/21/20 Status: Ordered [place]-3 oral capsule 0 Refills, Maintenance, 09/13/23 15:32:00 [...] tablet, 1 Refills, Maintenance, 09/05/23 23:33:00 EST, [facility], 161, cm, 05/16/23 10:58:00 [...] Start Date: 12/27/19 Status: Ordered Vitamin D 70100 iu oral capsule 50,000 International_Units, By Mouth, [...] Team Personnel Name: Lucy Greenberg NP [facility] Associate Professional Member Role: PCP Address: Address: [address] [facility] Adult [facility] [place] [address]- Care Team Related Persons Name: ALBA TATE Address: home [address] [place] [address]
--- OUTSIDE RECORDS SUMMARY | 2023-11-15 15:36 | XMS_ITS | Continuity of Care Document ---
Author Organization [facility] Riccardo Ordonez Lalit lt Address [address] [place] [address]- Care Team Providers Care Co Director Name Role Phone Dionicio ANTON, Lucy Yanez Primary Care Physician Encounter [facility] Date(s): 09/27/23 - 10/27/23 [facility] Riccardo Ordonez Adult [address] [place] [address]- Allergies, Adverse Reactions, Alerts Substance Reaction Severity Status cefuroxime Active beta blockers Active Macrobid 1, 2 Active ALVARO inhibitors muscle pain Active metFORMIN Diarrhea Active Bactrim Active Latex rash Active 1Reports Macrobid causes inflammation in her lungs that presents as atypical pneumonia. 2inflammation of the lung Immunizations Given and Recorded Vaccine Date Status Refusal Reason pneumococcal 20-valent conjugate vaccine 06/09/23 Recorded RSV vaccine preF3, recombinant 05/28/23 Recorded Influenza Virus Vaccine (oldterm) 1 04/19/23 Recor ded SARS-CoV-2 mRNA (csiomzv-ogil-qbbcj) vax 2 04/19/23 Recorded influenza virus vaccine, inactivated 04/05/22 Boyd rded influenza virus vaccine, inactivated 04/28/21 Give n influenza virus vaccine, inactivated 04/22/20 Give n influenza virus vaccine, inactivated 04/09/19 Boyd rded influenza virus vaccine, inactivated 03/28/18 Boyd rded [id number] bivalent booster vax 04/02/22 Recorded SARS-CoV-2 (COVID-19) mRNA-1273 vaccine 11/25/21 R ecorded SARS-CoV-2 (COVID-19) mRNA BNT-162b2 vac 04/22/21 Recorded SARS-CoV-2 (COVID-19) mRNA BNT-162b2 vac 09/09/20 Given SARS-CoV-2 (COVID-19) mRNA BNT-162b2 vac 08/19/20 Recorded zoster vaccine, inactivated 04/06/19 Recorded 1Result Comment: [facility] in [place] 2Result Comment: [facility] [place] Medications Accu-Chek [place] Glucose Meter See Instructions, [...] tablet, 1 Refills, Maintenance, 09/03/23 6:59:00 EST, [facility], 161, cm, 05/16/23 10:58:00 EDT, Height, 84.7, kg, 05/04/23 15:05:00 EDT, Dry Weight Start Date: 09/03/23 Status: Ordered esomeprazole 20 mg oral enteric coated capsule 1 capsule, By Mouth, Daily, # 90 capsule, 3 Refills, Maintenance, 01/27/23 9:13:00 EDT, [facility], 161, cm, 10/28/22 13:31:00 EDT, [...] Date: 10/11/23 Status: Ordered Freestyle Ortiz 2 Deputy Freestyle Ortiz 2 [place], See Instructions, # 1 each, Refills 0, [...] capsule, 1 Refills, Maintenance, 09/05/23 6:39:00 EST, [facility], 90, TAKE 1 CAPSULE DAILY, 161, cm, 05/16/23 10:58:00 EDT, Height, 84.7, kg, 05/04/23 15:05:00 EDT, Dry Weight Start Date: 09/05/23 Status: Ordered Januvia 50 mg oral tablet 1 tablet = 50 mg, By Mouth, Daily, # 90 tablet, 2 Refills, Maintenance, 10/11/23 7:41:00 EDT, Tablet, [facility], Partial [...] Stop 02/29/24 11:33:00 EDT, 09/02/23 11:33:00 EST, [facility], 161, cm, 02/22/23 11:03:00 EDT, Height,86.9, [...] 10:55:00 EDT Start Date: 02/21/20 Status: Ordered [place]-3 oral capsule 0 Refills, Maintenance, 09/13/23 15:32:00 [...] tablet, 1 Refills, Maintenance, 09/05/23 23:33:00 EST, [facility], 161, cm, 05/16/23 10:58:00 EDT, Height, 84.7, kg, 05/04/23 15:05:00 EDT, Dry Weight Start Date: 09/05/23 Status: Ordered Synthroid 0.05 mg oral tablet 1 tablet, By Mouth, Daily, TAKE 2TABLETS ON MONDAY, # 102 tablet, 1 Refills, Maintenance, 06/20/23 10:22:00 EST, [facility], 161, cm, 05/16/23 10:58:00 EDT, Height, 84.7, kg, 05/04/23 15:05:00 EDT, Dry Weight Start Date: 06/20/23 Status: Ordered timolol maleate 0.5% ophthalmic solution 1 drops, Eyes, Both, 2 times a day, # 10 mL, 0 Refills, Maintenance, 12/27/19 10:36:00 EDT, Solution Start Date: 12/27/19 Status: Ordered Vitamin D 68609 iu oral capsule 50,000 International_Units, By Mouth, [...] Professional Member Role: PCP Address: Address: [address] [facility] Adult [facility] [place] [address]- Care Team Related Persons Name: ALBA TATE Address: home [address] [place] [address]
--- OUTSIDE RECORDS SUMMARY | 2023-11-15 15:36 | XMS_ITS | Continuity of Care Document ---
Author Organization [facility] Riccardo Ordonez Lalit lt Address [address] [place] [address]- Care Team Providers Care Solid Waste Analyst Name Role Phone Dionicio ANTON, Lucy Yanez Primary Care Physician En[place] [facility] [place] Date(s): 07/21/22 - 08/20/22 [facility] Riccardo Ordonez Adult [address] [place] [address]- Allergies, Adverse Reactions, Alerts Substance Reaction Severity [...] 0 Refills, Maintenance, 07/17/22 15:34:00 EST, [facility], 161.3, cm, 07/15/22 9:49:00 EST, Height, 88, kg, 02/02/22 13:19:00 EDT, Dry Weight Start Date: 07/17/22 Status: Ordered glipiZIDE 5 mg oral tablet 15 mg, 3, tablet, By Mouth, Daily, # 270 tablet, Refills 1, Tot. Refills 1, Maintenance, 07/22/22 14:06:00 EST, Route to Pharmacy Electronically, [facility] [...] tablet, Refills 1, Route to Pharmacy Electronically, [facility], 161.5, cm, 08/16/21 14:16:00 EST, Height Start Date: 09/03/21 Status: Ordered LORazepam 0.5 mg oral tablet 1 tablet = 0.5 mg, By Mouth, Daily at bedtime, for 30 days, # 30 tablet, 2 Refills, Acute 10/17/22 8:19:00 EDT, 07/19/22 8:19:00 EST, [facility], 161.3, cm, 07/15/22 9:49:00 EST, [...] 10:55:00 EDT Start Date: 02/21/20 Status: Ordered [place]-3 oral capsule See Instructions, one daily, 0 [...] 08/10/22 9:47:00 EST, Route to Pharmacy Electronically, [facility]/pharmacy #[id number], Partial fill upon patient request if the [...] Start Date: 02/02/22 Status: Ordered Vitamin D 52708 iu oral capsule 50,000 International_Units, By Mouth, [...] Personnel Name: Dionicio ANTON, Lucy Yanez Position: [facility] Associate Professional Member Role: PCP Address: Address: [address] [place] [id number]- Care Team Related Persons Name: ALBA TATE Address: home [address] [place] [address]
--- OUTSIDE RECORDS SUMMARY | 2023-11-15 15:36 | XMS_ITS | Continuity of Care Document ---
Author Organization [facility] José Luis Lalit lt Address [address] [place] [address]- Care Team Providers Care Construction Controller Name Role Phone Dionicio ANTON, Lucy Yanez Primary Care Physician [place] [facility] [place]20 - 01/30/21 [facility] José Luis Adult [address] [place] [address]- Allergies, Adverse Reactions, Alerts Substance Reaction Severity [...] 03/05/21 7:26:00 EDT, 01/04/21 7:26:00 EDT, [facility], 161.5, cm, 12/30/20 11:09:00 EDT, [...] tablet, 3 Refills, Maintenance, 12/30/20 11:45:00EDT, [facility], 161.5, cm, 12/30/20 11:09:00 EDT, Height Start Date: 12/30/20 Stop Date: 12/25/21 Status: Ordered Multivitamin Daily, 0 Refills, Maintenance, 02/21/20 10:55:00 EDT Start Date: 02/21/20 Status: Ordered Nexium Capsule See Instructions, 22 mg 1 every other day, Refills 0, Maintenance, 05/06/19 16:33:27 EDT, Instructions Replace Required Details Start Date: 05/06/19 Status: Ordered [place]-3 oral capsule See Instructions, one daily, 0 [...]
--- OUTSIDE RECORDS SUMMARY | 2023-11-15 15:36 | XMS_ITS | Continuity of Care Document ---
Author Organization [facility] José Luis Lalit lt Address [address] [place] [address]- Care Team Providers Care Director Of Neurology Name Role Phone Dionicio ANTON, Lucy Yanez Primary Care Physician [phone] [place] [facility] [place](s): 02/09/23 - 03/11/23 [facility] Riccardo Ordonez Adult [address] [place] [address]- Allergies, Adverse Reactions, Alerts Substance Reaction Severity [...] tablet, 0 Refills, Maintenance, 10/31/22 11:47:00 EDT, [facility], 161, cm, 10/28/22 13:31:00 EDT, Height, 86.9, [...] capsule, 3 Refills, Maintenance, 01/27/23 9:13:00 EDT, [facility], 161, cm, 10/28/22 13:31:00 [...] capsule, 1 Refills, Maintenance, 09/08/22 10:28:00 EST, [facility], 0, 1 capsule By Mouth Daily, 161, cm, 08/30/22 14:54:00 EST, Height, 88.9, kg, 08/30/22 14:54:00 EST, Dry Weight Start Date: 09/08/22 Status: Ordered loratadine 10 mg oral tablet 1, tablet, By Mouth, Daily, # 90 tablet, Refills 1, Route to Pharmacy Electronically, [facility], 161.5, cm, 08/16/21 14:16:00 EST, Height Start Date: 09/03/21 Status: Ordered losartan 50 mg oral tablet 1 tablet, By Mouth, Daily, for 90 days, # 90 tablet, 1 Refills, Physician Stop 09/02/23 11:33:00 EST, 03/06/23 11:33:00 EDT, [facility]/pharmacy #[id number], 161, cm, 02/22/23 11:03:00 EDT, Height, [...] 10:55:00 EDT Start Date: 02/21/20 Status: Ordered [place]-3 oral capsule See Instructions, one daily, 0 [...] Start Date: 02/02/22 Status: Ordered Vitamin D 21027 iu oral capsule 50,000 International_Units, By Mouth, [...] Yanez Position: [facility] PCO Associate Professional Member Role: PCP Address: Address: [address] [place] [address]- Care Team Related Persons Name: ALBA TATE Address: home [address] [place] [address]
--- OUTSIDE RECORDS SUMMARY | 2023-11-15 15:36 | XMS_ITS | Continuity of Care Document ---
Author Organization [facility] Riccardo Ordonez Lalit lt Address [address] [place] [address]- Care Team Providers Care Director Payer Name Role Phone Dionicio ANTON, Lucy Yanez Primary Care Physician [phone] Encounter [facility] [place] Date(s): 07/04/22 - 08/03/22 [facility] Riccardo Ordonez Adult [address] [place] [address]- Allergies, Adverse Reactions, Alerts Substance Reaction Severity [...] 07/22/22 14:06:00 EST, Route to Pharmacy Electronically, [facility], Partial fill upon [...] tablet, Refills 1, Route to Pharmacy Electronically, [facility], 161.5, cm, 08/16/21 14:16:00 EST, Height Start Date: 09/03/21 Status: Ordered LORazepam 0.5 mg oral tablet 1 tablet = 0.5 mg, By Mouth, Daily at bedtime, for 30 days, # 30 tablet, 2 Refills, Acute 10/17/22 8:19:00 EDT, 07/19/22 8:19:00 EST, [facility], 161.3, cm, 07/15/22 9:49:00 EST, [...] 10:55:00 EDT Start Date: 02/21/20 Status: Ordered [place]-3 oral capsule See Instructions, one daily, 0 [...] Start Date: 02/02/22 Status: Ordered Vitamin D 41407 iu oral capsule 50,000 International_Units, By Mouth, [...] Professional Member Role: PCP Address: Address: [address] [place] [address]- Care Team Related Persons Name: ALBA TATE
--- OUTSIDE RECORDS SUMMARY | 2023-11-15 15:36 | XMS_ITS | Continuity of Care Document ---
Author Organization [facility] José Luis Lalit lt Address [address] [place] [address]- Care Team Providers Care Channel Development Director Name Role Phone Dionicio ANTON, Lucy Yanez Primary Care Physician En[place] [facility] [place] Date(s): 08/24/23 - 09/23/23 [facility] Riccardo Ordonez Adult [address] [place] [address]- Allergies, Adverse Reactions, Alerts Substance Reaction Severity [...] (oldterm) 1 04/19/23 Recor ded SARS-CoV-2 mRNA (nscrcyt-uaqc-wakgn) vax 2 04/19/23 Recorded influenza virus vaccine, inactivated 04/05/22 Boyd rded influenza virus vaccine, inactivated 04/28/21 Give n influenza virus vaccine, inactivated 04/22/20 Give n influenza virus vaccine, inactivated 04/09/19 Boyd rded influenza virus vaccine, inactivated 03/28/18 Boyd rded [id number] bivalent booster vax 04/02/22 Recorded SARS-CoV-2 (COVID-19) mRNA-1273 vaccine 11/25/21 R ecorded SARS-CoV-2 (COVID-19) mRNA BNT-162b2 vac 04/22/21 Recorded SARS-CoV-2 (COVID-19) mRNA BNT-162b2 vac 09/09/20 Given SARS-CoV-2 (COVID-19) mRNA BNT-162b2 vac 08/19/20 Recorded zoster vaccine, inactivated 04/06/19 Recorded 1Result Comment: [facility] [place] 2Result Comment: [facility] [place] Medications Accu-Chek [place] Glucose Meter See Instructions, [...] capsule, 3 Refills, Maintenance, 01/27/23 9:13:00 EDT, [facility], 161, cm, 10/28/22 13:31:00 [...] Date: 09/19/23 Status: Ordered Freestyle Ortiz 2 [place] Freestyle Ortiz 2 [place], See Instructions, # 1 each, Refills 0, [...] Daily, # 180 tablet, 3 Refills, Maintenance, 08/25/23 7:12:00 EST, [facility], Partial fill upon patient request if the prescription is for a schedule II opioid drug., 161, cm, 05/16/23 10:58:00 EDT,... Start Date: 08/25/23 Status: Ordered Glucosamine Chondroitin By Mouth, Daily, [...] Dry Weight Start Date: 09/05/23 Status: Ordered Jardiance 10 mg oral tablet 1 tablet = 10 mg, By Mouth, Daily in AM, # 30 tablet, 0 Refills, Maintenance, 09/19/23 7:48:00 EST,Tablet, [facility]/pharmacy #[id number], Partial fill upon patient request if the prescription is for a scheduleII opioid drug., 161, cm, 09/19/23 7:29:00 EST, [facility]... Start Date: 09/19/23 Status: Ordered latanoprost 0.005% ophthalmic solution 1 [...] 10:55:00 EDT Start Date: 02/21/20 Status: Ordered [place]-3 oral capsule 0 Refills, Maintenance, 09/13/23 15:32:00 [...] 09/05/23 23:33:00 EST, [facility], 161, cm, 05/16/23 10:58:00 EDT, Height, 84.7, kg, 05/04/23 15:05:00 EDT, Dry Weight Start Date: 09/05/23 Status: Ordered Synthroid 0.05 mg oral tablet 1 tablet, By Mouth, Daily, TAKE 2TABLETS ON MONDAY, # 102 tablet, 1 Refills, Maintenance, 06/20/23 10:22:00 EST, [facility], 161, cm, 05/16/23 10:58:00 EDT, Height, 84.7, kg, 05/04/23 15:05:00 EDT, Dry Weight Start Date: 06/20/23 Status: Ordered timolol maleate 0.5% ophthalmic solution 1 drops, Eyes, Both, 2 times a day, # 10 mL, 0 Refills, Maintenance, 12/27/19 10:36:00 EDT, Solution Start Date: 12/27/19 Status: Ordered Vitamin D 75556 iu oral capsule 50,000 International_Units, By Mouth, [...] Personnel Name: Dionicio ANTON, Lucy Yanez Position: [facility] PCO Associate Professional Member Role: PCP Address: Address: [address] [place] [address]- Care Team Related Persons Name: ALBA TATE Address: home [address] [place] [address]
--- OUTSIDE RECORDS SUMMARY | 2023-11-15 15:36 | XMS_ITS | Continuity of Care Document ---
Author Organization [facility] José Luis Lalit lt Address [address] [place] [address]- Care Team Providers Care Ornamental Iron Worker Name Role Phone Dionicio ANTON, Lucy Yanez Primary Care Physician [place] [facility] [place] - 01/30/22 [facility] Riccardo Ordonez Adult [address] [place] [address]- Allergies, Adverse Reactions, Alerts Substance Reaction Severity [...] tablet, Refills 1, Route to Pharmacy Electronically, [facility] 30[facility], 161.5, cm, 08/16/21 14:16:00 EST, Height Start [...] Required Details Start Date: 05/06/19 Status: Ordered [place]-3 oral capsule See Instructions, one daily, 0 [...]
--- OUTSIDE RECORDS SUMMARY | 2023-11-15 15:37 | XMS_ITS | Continuity of Care Document ---
Author Organization [facility] Riccardo Ordonez Lalit lt Address [address] [place] [address]- Care Team Providers Care Aligning Inspector Name Role Phone Dionicio ANTON, Lucy Yanez Primary Care Physician Encounter [facility] Date(s): 07/27/22 - 08/26/22 [facility] Riccardo Ordonez Adult [address] [place] [address]- Allergies, Adverse Reactions, Alerts Substance Reaction Severity [...] 07/22/22 14:06:00 EST, Route to Pharmacy Electronically, [facility], Partial fill upon [...] tablet, 3 Refills, 10/11/21 11:14:00 EDT, [facility], 161.5, cm, 10/11/21 10:53:00 EDT, Height Start Date: 10/11/21 Status: Ordered loratadine 10 mg oral tablet 1, tablet, By Mouth, Daily, # 90 tablet, Refills 1, Route to Pharmacy Electronically, [facility]147, 161.5, cm, 08/16/21 14:16:00 EST, Height Start Date: 09/03/21 Status: Ordered LORazepam 0.5 mg oral tablet 1 tablet = 0.5 mg, By Mouth, Daily at bedtime, for 30 days, # 30 tablet, 2 Refills, Acute 10/17/22 8:19:00 EDT, 07/19/22 8:19:00 EST, [facility], 161.3, cm, 07/15/22 9:49:00 EST, Height, 88, kg, 02/02/22 13:19:00 EDT, Dry Weight Start Date: 07/19/22 Stop Date: 10/17/22 Status: Ordered losartan 50 mg oral tablet 1 tablet, By Mouth, Daily, # 90 tablet, 3 Refills, [facility], 161.5, cm, 11/11/21 12:28:00 EDT, Height Start Date: 01/19/22 Status: Ordered Magnesium Magnesium, 0 Refills, Maintenance, 02/02/22 13:23:00 EDT Start Date: 02/02/22 Status: Ordered Multivitamin Daily, 0 Refills, Maintenance, 02/21/20 10:55:00 EDT Start Date: 02/21/20 Status: Ordered [place]-3 oral capsule See Instructions, one daily, 0 [...] Start Date: 02/02/22 Status: Ordered Vitamin D 81177 iu oral capsule 50,000 International_Units, By Mouth, [...] Professional Member Role: PCP Address: Address: [address] [place] [address]- Care Team Related Persons Name: ALBA TATE Address: [address] [place] [address]
--- OUTSIDE RECORDS SUMMARY | 2023-11-15 15:37 | XMS_ITS | Continuity of Care Document ---
Author Organization [facility] José Luis Lalit lt Address [address] [place] [address]- Care Team Providers Care Pin Sticker Name Role Phone Dionicio ANTON, Lucy Yanez Primary Care Physician [phone] Encounter [facility] Date(s): 04/21/23 - 05/21/23 [facility] Riccardo Ordonez Adult [address] [place] [address]- Allergies, Adverse Reactions, Alerts Substance Reaction Severity [...] (oldterm) 1 04/19/23 Recor ded SARS-CoV-2 mRNA (llpoaei-hbpy-yhnep) vax 2 04/19/23 Recorded influenza virus vaccine, inactivated 04/05/22 Boyd rded influenza virus vaccine, inactivated 04/28/21 Give n influenza virus vaccine, inactivated 04/22/20 Give n influenza virus vaccine, inactivated 04/09/19 Boyd rded influenza virus vaccine, inactivated 03/28/18 Boyd rded [id number] bivalent booster vax 04/02/22 Recorded SARS-CoV-2 (COVID-19) mRNA-1273 vaccine 11/25/21 R ecorded SARS-CoV-2 (COVID-19) mRNA BNT-162b2 vac 04/22/21 Recorded SARS-CoV-2 (COVID-19) mRNA BNT-162b2 vac 09/09/20 Given SARS-CoV-2 (COVID-19) mRNA BNT-162b2 vac 08/19/20 Recorded zoster vaccine, inactivated 04/06/19 Recorded 1Result Comment: [facility] [place] 2Result Comment: [facility] [place] Medications Accu-Chek [place] Glucose Meter See Instructions, [...] 3 Refills, Maintenance, 01/27/23 9:13:00 EDT, [facility], 161, cm, 10/28/22 13:31:00 EDT, Height, 86.9, kg, 10/28/22 13:31:00 EDT, DryWeight Start Date: 01/27/23 Status: Ordered GlipiZIDE XL 10 mg oral tablet, extended release 2 tablet = 20 mg, By Mouth, Daily, # 180 tablet, 1 Refills, Maintenance, 02/16/23 6:50:00 EDT, [facility], Partial fill upon patient request [...] 07/20/23 6:50:00 EST, 04/21/23 6:50:00 EDT, [facility], 161, cm, 02/22/23 11:03:00 EDT, Height, 86.9, kg, 10/28/22 13:31:00 EDT, Dry Weight Start Date: 04/21/23 Stop Date: 07/20/23 Status: Ordered losartan 50 mg oral tablet 1 tablet, By Mouth, Daily, for 90 days, # 90 tablet, 1 Refills, Physician Stop 02/29/24 11:33:00 EDT, 09/02/23 11:33:00 EST, [facility], 161, cm, 02/22/23 11:03:00 EDT, [...] Start Date: 12/27/19 Status: Ordered Vitamin D 82818 iu oral capsule 50,000 International_Units, By Mouth, [...] Associate Professional Member Role: PCP Address: Address: [address] [place] [address]- Care Team Related Persons Name: ALBA TATE Address: [address] [place] [address]
--- OUTSIDE RECORDS SUMMARY | 2023-11-15 15:37 | XMS_ITS | Continuity of Care Document ---
Author Organization [facility] José Luis Lalit lt Address [address] [place] [address]- Care Team Providers Care Network Engineer Administrator Name Role Phone Dionicio ANTON, Lucy Yanez Primary Care Physician Encounter [facility] Date(s): 09/21/22 - 10/21/22 [facility] Adult [address] [place] [address]- Allergies, Adverse Reactions, Alerts Substance Reaction Severity [...] 0 Refills, Maintenance, 09/03/22 19:13:00 EST, Tablet, [facility]/pharmacy #[id number], Partial fill upon patient [...] 0 Refills, Maintenance, 09/08/22 10:27:00 EST, [facility], 161, cm, 08/30/22 14:54:00 EST, Height, 88.9, kg, 08/30/22 14:54:00 EST, Dry Weight Start Date: 09/08/22 Status: Ordered glipiZIDE 5 mg oral tablet 15 mg, 3, tablet, By Mouth, Daily, for 90 days, # 270 tablet, Refills 1, Tot. Refills 1, Hard Stop 03/01/23 11:56:00 EDT, 09/02/22 11:56:00 EST, [id number] Partial fill upon patient request if the prescriptio... Start Date: 09/02/22 Stop Date: 03/01/23 Status: Ordered glipiZIDE 5 mg oral tablet 15 mg, 3, tablet, By Mouth, Daily, # 270 tablet, Refills 1, Tot. Refills 1, Maintenance, 03/01/23 11:56:00 EDT, Route to Pharmacy Electronically, [facility], Partial fill upon patient request if the prescription is for a schedul... Start Date: 03/01/23 Stop Date: 08/28/23 Status: Ordered hydrochlorothiazide-triamterene 25 mg-37.5 mg oral capsule 1 capsule, By Mouth, Daily, # 90 capsule, 1 Refills, Maintenance, 09/08/22 10:28:00 EST, [facility], 0, 1 capsule By Mouth Daily, 161, cm, 08/30/22 14:54:00 EST, Height, 88.9, kg, 08/30/22 14:54:00 EST, Dry Weight Start Date: 09/08/22 Status: Ordered levothyroxine 0.05 mg oral tablet See Instructions, TAKE 1 TABLET DAILY, TAKE 2 TABLETS ON MONDAY, # 102 tablet, 0 Refills, 09/08/22 10:27:00 EST, [facility], 161, cm, 08/30/22 14:54:00 EST, Height, 88.9, kg, 08/30/22 14:54:00 EST, Dry Weight Start Date: 09/08/22 Status: Ordered loratadine 10 mg oral tablet 1, tablet, By Mouth, Daily, # 90 tablet, Refills 1, Route to Pharmacy Electronically, [facility], 161.5, cm, 08/16/21 14:16:00 EST, Height Start Date: 09/03/21 Status: Ordered losartan 50 mg oral tablet 1 tablet, By Mouth, Daily, # 90 tablet, 3 Refills, 09/08/22 10:28:00 EST, [facility], 161, cm, 08/30/22 14:54:00 EST, Height, 88.9, kg, 08/30/22 14:54:00 EST, Dry Weight Start Date: 09/08/22 Status: Ordered Magnesium Magnesium, 0 Refills, Maintenance, 02/02/22 13:23:00 EDT Start Date: 02/02/22 Status: Ordered Multivitamin Daily, 0 Refills, Maintenance, 02/21/20 10:55:00 EDT Start Date: 02/21/20 Status: Ordered [place]-3 oral capsule See Instructions, one daily, 0 [...] Start Date: 02/02/22 Status: Ordered Vitamin D 67352 iu oral capsule 50,000 International_Units, By Mouth, [...] Associate Professional Member Role: PCP Address: Address: [address] [place] [address]- Care Team Related Persons Name: ALBA TATE Address: [address] [address]
--- OUTSIDE RECORDS SUMMARY | 2023-11-15 15:37 | XMS_ITS | Continuity of Care Document ---
Author Organization [facility] José Luis Lalit lt Address [address] [place] [address]- Care Team Providers Care Truckload Checker Name Role Phone Dionicio ANTON, Lucy Yanez Primary Care Physician [phone] [place] [facility] Date(s): 09/24/21 - 10/24/21 [facility] Riccardo Ordonez Adult [address] [place] [address]- Allergies, Adverse Reactions, Alerts Substance Reaction Severity Status cefuroxime Active metFORMIN Diarrhea Active ALVARO inhibitors muscle [...] tablet, Refills 1, Route to Pharmacy Electronically, [facility] 94[facility], 161.5, cm, 08/16/21 14:16:00 EST, Height Start Date: 09/03/21 Status: Ordered losartan 50 mg oral tablet 50 mg, 1, tablet, By Mouth, Daily, # 90 tablet, Refills 3, Tot. Refills 3, Maintenance, 12/30/20 11:48:00 EDT, Route to Pharmacy Electronically, [email or web address], 161.5, cm, 12/30/20 11:09:00 EDT, Height Start Date: 12/30/20 Status: Ordered Multivitamin Daily, 0 Refills, Maintenance, 02/21/20 10:55:00 EDT Start Date: 02/21/20 Status: Ordered Nexium 20 mg oral enteric coated capsule 1 capsule = 20 mg, By Mouth, Daily, # 90 capsule, 1 Refills, Maintenance, 09/13/21 9:37:00 EST, EC Capsule, [facility], Partial fill upon patient request if the prescription is fora schedule II opioid drug., 161.5, cm, 09/13/21 8:5... Start Date: 09/13/21 Status: Ordered Nexium Capsule See Instructions, 22 mg 1 every other day, Refills 0, Maintenance, 05/06/19 16:33:27 EDT, Instructions Replace Required Details Start Date: 05/06/19 Status: Ordered [place]-3 oral capsule See Instructions, one daily, 0 [...]
--- OUTSIDE RECORDS SUMMARY | 2023-11-15 15:37 | XMS_ITS | Continuity of Care Document ---
Author Organization [facility] José Luis Lalit lt Address [address] [place] [address]- Care Team Providers Care Dinkey Locomotive Operator Name Role Phone Dionicio ANTON, Lucy Yanez Primary Care Physician [phone] Encounter [facility] Date(s): 09/16/21 - 10/16/21 [facility] Riccardo Ordonez Adult [address] [place] [address]- Allergies, Adverse Reactions, Alerts Substance Reaction Severity [...] tablet, 3 Refills, 10/11/21 11:14:00 EDT, [facility], 161.5, cm, 10/11/21 10:53:00 EDT, Height Start Date: 10/11/21 Status: Ordered loratadine 10 mg oral tablet 1, tablet, By Mouth, Daily, # 90 tablet, Refills 1, Route to Pharmacy Electronically, [facility], 161.5, cm, 08/16/21 14:16:00 EST, Height Start Date: 09/03/21 Status: Ordered losartan 50 mg oral tablet 50 mg, 1, tablet, By Mouth, Daily, # 90 tablet, Refills 3, Tot. Refills 3, Maintenance, 12/30/20 11:48:00 EDT, Route to Pharmacy Electronically, [facility], 161.5, cm, 12/30/20 11:09:00 EDT, Height Start Date: 12/30/20 Status: Ordered Multivitamin Daily, 0 Refills, Maintenance, 02/21/20 10:55:00 EDT Start Date: 02/21/20 Status: Ordered Nexium 20 mg oral enteric coated capsule 1 capsule = 20 mg, By Mouth, Daily, # 90 capsule, 1 Refills, Maintenance, 09/13/21 9:37:00 EST, EC Capsule, [facility], Partial fill upon patient request if the prescription is fora schedule II opioid drug., 161.5, cm, 09/13/21 8:5... Start Date: 09/13/21 Status: Ordered Nexium Capsule See Instructions, 22 mg 1 every other day, Refills 0, Maintenance, 05/06/19 16:33:27 EDT, Instructions Replace Required Details Start Date: 05/06/19 Status: Ordered [place]-3 oral capsule See Instructions, one daily, 0 [...]
--- OUTSIDE RECORDS SUMMARY | 2023-11-15 15:37 | XMS_ITS | Continuity of Care Document ---
Author Organization [facility] Riccardo Ordonez Lalit lt Address [address] [place] [address]- Care Team Providers Care Metallurgical Or Materials Technician Name Role Phone Dionicio ANTON, Lucy Yanez Primary Care Physician En[place] [facility] Date(s): 10/10/23 - 11/09/23 [facility] Riccardo Ordonez Adult [address] [place] [address]- Attending Physician: Damián Turcios Admitting Physician: AdmtrDamián Referring Physician: Admtr, Ar8 Allergies, Adverse Reactions, Alerts Substance Reaction Severity Status cefuroxime Active beta blockers Active Macrobid 1, 2 Active Latex rash Active metFORMIN Diarrhea Active Bactrim Active ALVARO inhibitors muscle pain Active 1Reports Macrobid causes inflammation in her lungs that presents as atypical pneumonia. 2inflammation of the lung Immunizations Given and Recorded Vaccine Date Status Refusal Reason pneumococcal 20-valent conjugate vaccine 06/09/23 Recorded RSV vaccine preF3, recombinant 05/28/23 Recorded Influenza Virus Vaccine (oldterm) 1 04/19/23 Recor ded SARS-CoV-2 mRNA (ymaucyi-daeh-mgafu) vax 2 04/19/23 Recorded influenza virus vaccine, inactivated 04/05/22 Boyd rded influenza virus vaccine, inactivated 04/28/21 Give n influenza virus vaccine, inactivated 04/22/20 Give n influenza virus vaccine, inactivated 04/09/19 Boyd rded influenza virus vaccine, inactivated 03/28/18 Boyd rded [id number] bivalent booster vax 04/02/22 Recorded SARS-CoV-2 (COVID-19) mRNA-1273 vaccine 11/25/21 R ecorded SARS-CoV-2 (COVID-19) mRNA BNT-162b2 vac 04/22/21 Recorded SARS-CoV-2 (COVID-19) mRNA BNT-162b2 vac 09/09/20 Given SARS-CoV-2 (COVID-19) mRNA BNT-162b2 vac 08/19/20 Recorded zoster vaccine, inactivated 04/06/19 Recorded 1Result Comment: [facility] [place] 2Result Comment: [facility] [place] Medications Accu-Chek Paradise Glucose Meter See Instructions, [...] 1 Refills, Maintenance, 09/03/23 6:59:00 EST, [facility], 161, cm, 05/16/23 10:58:00 EDT, Height, 84.7, kg, 05/04/23 15:05:00 EDT, Dry Weight Start Date: 09/03/23 Status: Ordered esomeprazole 20 mg oral enteric coated capsule 1 capsule, By Mouth, Daily, # 90 capsule, 1 Refills, Maintenance, 11/09/23 21:34:00 EDT, [facility], 161, cm, 09/19/23 7:29:00 EST, [...] Date: 10/11/23 Status: Ordered Freestyle Ortiz 2 [place] Freestyle Ortiz 2 [place], See Instructions, # 1 each, Refills 0, [...] 1 Refills, Maintenance, 09/05/23 6:39:00 EST, [facility], 90, [...] EDT Start Date: 02/21/20 Status: Ordered [place]-3 oral capsule 0 Refills, Maintenance, 09/13/23 15:32:00 [...] tablet, 1 Refills, Maintenance, 09/05/23 23:33:00 EST, [facility], 161, cm, 05/16/23 10:58:00 EDT, [...] Start Date: 12/27/19 Status: Ordered Vitamin D 98325 iu oral capsule 50,000 International_Units, By Mouth, [...] 30 days ago entered on: 05/16/19 Sex Laboratory * Event Display: Laboratory Result Scanned Authored Date: * Event Display: Non BH Lab Results Authored Date: * Event Display: Non BH Lab Results Authored Date: * Event Display: Non BH Lab Results Authored Date: Radiology * Event Display: Ultrasound Renal, Non BH Authored Date: * Event Display: X-Ray Chest, Non- BH Authored Date: * Event Display: X-Ray Chest, Non- BH Authored Date: * Event Display: CT Scan Chest, Non- BH Authored Date: * Event Display: CT Scan Head, Non- BH Authored Date: US Kidney * Event Display: Ultrasound Renal Authored Date: MG Breast Views * Event Display: MM Mammogram Authored Date: Patient Care team information Care Team Personnel Name: Dionicio ANTON, Lucy Yanez Position: S PCO Associate Professional Member Role: PCP Address: Address: [address] [place] [address]- [place] Care Team Related Persons Name: ALBA TATE Address: home [address] [place] [address]
--- OUTSIDE RECORDS SUMMARY | 2023-11-15 15:37 | XMS_ITS | Continuity of Care Document ---
Author Organization [facility] Address [address] [place] [address]- Care Team Providers Care Manager Nursing Home Name Role Phone Dionicio ANTON, Lucy Yanez Primary Care Physician Encounter [facility] Date(s): 04/03/21 - 06/19/[address] [address] Attending Physician: Dionicio ANTON, Lucy Yanez Admitting Physician: Dionicio ANTON, Lucy Yanez Referring [...] 03/08/21 9:39:00 EDT, Route to Pharmacy Electronically, [facility]acy #[id number], 161.5, cm, 12/30/20 [...] tablet, 3 Refills, Maintenance, 12/30/20 11:45:00EDT, [facility], 161.5, cm, 12/30/20 11:09:00 EDT, Height Start Date: 12/30/20 Stop Date: 12/25/21 Status: Ordered Multivitamin Daily, 0 Refills, Maintenance, 02/21/20 10:55:00 EDT Start Date: 02/21/20 Status: Ordered Nexium Capsule See Instructions, 22 mg 1 every other day, Refills 0, Maintenance, 05/06/19 16:33:27 EDT, Instructions Replace Required Details Start Date: 05/06/19 Status: Ordered [place]-3 oral capsule See Instructions, one daily, 0 [...]
--- OUTSIDE RECORDS SUMMARY | 2023-11-15 15:37 | XMS_ITS | Continuity of Care Document ---
Author Organization [facility] José Luis Lalit lt Address [address] [place] [address]- Care Team Providers Care Pole Shaver Helper Name Role Phone Dionicio ANTON, Lucy Yanez Primary Care Physician [phone] [place] [facility] [place] 03/08/21 - 04/07/21 [facility] Riccardo Ordonez Adult [address] [place] [address]- Allergies, Adverse Reactions, Alerts Substance Reaction Severity [...] 03/08/21 9:39:00 EDT, Route to Pharmacy Electronically, [facility]acy #[id number], 161.5, cm, 12/30/20 11:09:00 EDT, Height [...] Required Details Start Date: 05/06/19 Status: Ordered [place]-3 oral capsule See Instructions, one daily, 0 [...]
--- OUTSIDE RECORDS SUMMARY | 2023-11-15 15:37 | XMS_ITS | Continuity of Care Document ---
Author Organization [facility] Riccardo Ordonez Lalit lt Address [address] [place] [address]- Care Team Providers Care Professor Of Business Name Role Phone Dionicio ANTON, Lucy Yanez Primary Care Physician [phone] Encounter [facility] Date(s): 02/14/22 - 03/16/22 [facility] Riccardo Ordonez Adult [address] [place] [address]- Allergies, Adverse Reactions, Alerts Substance Reaction Severity [...] 1, Route to Pharmacy Electronically, [facility], 161.5, cm, 08/16/21 14:16:00 EST, Height Start [...] EDT Start Date: 02/21/20 Status: Ordered [place]-3 oral capsule See Instructions, one daily, 0 [...] Start Date: 02/02/22 Status: Ordered Vitamin D 22511 iu oral capsule 50,000 International_Units, By Mouth, [...] Name: Dionicio ANTON, Lucy Yanez Address: [address] [place] [address]-
--- OUTSIDE RECORDS SUMMARY | 2023-11-15 15:37 | XMS_ITS | Continuity of Care Document ---
Author Organization [facility] José Luis Lalit lt Address [address] [place] [address]- Care Team Providers Care Exhibitor Sales Name Role Phone Dionicio ANTON, Lucy Yanez Primary Care Physician [phone] Encounter [facility] Date(s): 03/26/21 - 04/25/21 [facility] Riccardo Ordonez Adult [address] [place] [address]- Allergies, Adverse Reactions, Alerts Substance Reaction Severity [...] Required Details Start Date: 05/06/19 Status: Ordered [place]-3 oral capsule See Instructions, one daily, 0 [...]
--- OUTSIDE RECORDS SUMMARY | 2023-11-15 15:37 | XMS_ITS | Continuity of Care Document ---
Author Organization [facility] José Luis Lalit lt Address [address] [place] [address]- Care Team Providers Care Riverboat Master Name Role Phone Dionicio ANTON, Lucy Yanez Primary Care Physician [place] [facility] [place](s): 08/16/21 - 09/15/21 [facility] [place] Adult [address] [place] [address]- Allergies, Adverse Reactions, Alerts Substance Reaction Severity [...] tablet, Refills 1, Route to Pharmacy Electronically, [facility]272, 161.5, cm, 08/16/21 14:16:00 EST, Height Start Date: 09/03/21 Status: Ordered losartan 50 mg oral tablet 50 mg, 1, tablet, By Mouth, Daily, # 90 tablet, Refills 3, Tot. Refills 3, Maintenance, 12/30/20 11:48:00 EDT, Route to Pharmacy Electronically, [facility], 161.5, cm, 12/30/20 11:09:00 EDT, Height Start Date: 12/30/20 Status: Ordered Multivitamin Daily, 0 Refills, Maintenance, 02/21/20 10:55:00 EDT Start Date: 02/21/20 Status: Ordered Nexium 20 mg oral enteric coated capsule 1 capsule = 20 mg, By Mouth, Daily, # 90 capsule, 1 Refills, Maintenance, 09/13/21 9:37:00 EST, EC Capsule, [facility], Partial fill upon patient request if the prescription is fora schedule II opioid drug., 161.5, cm, 09/13/21 8:5... Start Date: 09/13/21 Status: Ordered Nexium Capsule See Instructions, 22 mg 1 every other day, Refills 0, Maintenance, 05/06/19 16:33:27 EDT, Instructions Replace Required Details Start Date: 05/06/19 Status: Ordered [place]-3 oral capsule See Instructions, one daily, 0 [...]
--- OUTSIDE RECORDS SUMMARY | 2023-11-15 15:37 | XMS_ITS | Continuity of Care Document ---
Author Organization [facility] José Luis Lalit lt Address [address] [place] [address]- Care Team Providers Care Production Scheduler Name Role Phone Dionicio ANTON, Lucy Yanez Primary Care Physician [phone] [place] [facility] Date(s): 11/02/21 - 12/02/21 [facility] Adult [address] [place] [address]- Allergies, Adverse Reactions, Alerts Substance Reaction Severity [...] tablet, 3 Refills, 10/11/21 11:14:00 EDT, [facility], 161.5, cm, 10/11/21 10:53:00 EDT, Height Start Date: 10/11/21 Status: Ordered loratadine 10 mg oral tablet 1, tablet, By Mouth, Daily, # 90 tablet, Refills 1, Route to Pharmacy Electronically, [facility], 161.5, cm, 08/16/21 14:16:00 EST, Height Start Date: 09/03/21 Status: Ordered losartan 50 mg oral tablet 50 mg, 1, tablet, By Mouth, Daily, # 90 tablet, Refills 3, Tot. Refills 3, Maintenance, 12/30/20 11:48:00 EDT, Route to Pharmacy Electronically, [facility], 161.5, cm, 12/30/20 11:09:00 EDT, Height Start Date: 12/30/20 Status: Ordered Multivitamin Daily, 0 Refills, Maintenance, 02/21/20 10:55:00 EDT Start Date: 02/21/20 Status: Ordered Nexium 20 mg oral enteric coated capsule 1 capsule = 20 mg, By Mouth, Daily, # 90 capsule, 1 Refills, Maintenance, 09/13/21 9:37:00 EST, EC Capsule, [facility], Partial fill upon patient request if the prescription is fora schedule II opioid drug., 161.5, cm, 09/13/21 8:5... Start Date: 09/13/21 Status: Ordered Nexium Capsule See Instructions, 22 mg 1 every other day, Refills 0, Maintenance, 05/06/19 16:33:27 EDT, Instructions Replace Required Details Start Date: 05/06/19 Status: Ordered [place]-3 oral capsule See Instructions, one daily, 0 [...]
--- OUTSIDE RECORDS SUMMARY | 2023-11-15 15:37 | XMS_ITS | Continuity of Care Document ---
Author Organization [facility] Riccardo Ordonez Lalit lt Address [address] [place] [address]- Care Team Providers Care Resource Technician Name Role Phone Dionicio ANTON, Lucy Yanez Primary Care Physician Encounter [facility] Date(s): 07/27/22 - 08/26/22 JOY[facility]ELY[facility] Ordonez Adult [address] [place] [address]- Allergies, Adverse Reactions, Alerts Substance Reaction Severity [...] EST, Route to Pharmacy Electronically, [facility] [...] tablet, 3 Refills, 10/11/21 11:14:00 EDT, [facility], 161.5, cm, 10/11/21 10:53:00 EDT, Height Start Date: 10/11/21 Status: Ordered loratadine 10 mg oral tablet 1, tablet, By Mouth, Daily, # 90 tablet, Refills 1, Route to Pharmacy Electronically, [facility], 161.5, cm, 08/16/21 14:16:00 EST, Height Start Date: 09/03/21 Status: Ordered LORazepam 0.5 mg oral tablet 1 tablet = 0.5 mg, By Mouth, Daily at bedtime, for 30 days, # 30 tablet, 2 Refills, Acute 10/17/22 8:19:00 EDT, 07/19/22 8:19:00 EST, [facility], 161.3, cm, 07/15/22 9:49:00 EST, Height, 88, kg, 02/02/22 13:19:00 EDT, Dry Weight Start Date: 07/19/22 Stop Date: 10/17/22 Status: Ordered losartan 50 mg oral tablet 1 tablet, By Mouth, Daily, # 90 tablet, 3 Refills, [facility], 161.5, cm, 11/11/21 12:28:00 EDT, Height Start Date: 01/19/22 Status: Ordered Magnesium Magnesium, 0 Refills, Maintenance, 02/02/22 13:23:00 EDT Start Date: 02/02/22 Status: Ordered Multivitamin Daily, 0 Refills, Maintenance, 02/21/20 10:55:00 EDT Start Date: 02/21/20 Status: Ordered [place]-3 oral capsule See Instructions, one daily, 0 [...] Start Date: 02/02/22 Status: Ordered Vitamin D 20497 iu oral capsule 50,000 International_Units, By Mouth, [...] Professional Member Role: PCP Address: Address: [address] [place] [address]- Care Team Related Persons Name: ALBA TATE Address: home [address] [place] [address]
--- OUTSIDE RECORDS SUMMARY | 2023-11-15 15:37 | XMS_ITS | Continuity of Care Document ---
Author Organization [facility] Riccardo Ordonez Lalit lt Address [address] [place] [address]- Care Team Providers Care Twister Tender Paper Name Role Phone Dionicio ANTON, Lucy Yanez Primary Care Physician Encounter [facility] Date(s): 01/13/22 - 02/12/22 [facility] Riccardo Ordonez Adult [address] [place] [address]- Allergies, Adverse Reactions, Alerts Substance Reaction Severity [...] 1, Route to [facility]acy Electronically, [facility], 161.5, cm, 08/16/21 14:16:00 EST, Height Start [...] 10:55:00 EDT Start Date: 02/21/20 Status: Ordered [place]-3 oral capsule See Instructions, one daily, 0 [...] Start Date: 02/02/22 Status: Ordered Vitamin D 79173 iu oral capsule 50,000 International_Units, By Mouth, [...]
--- OUTSIDE RECORDS SUMMARY | 2023-11-15 15:37 | XMS_ITS | Continuity of Care Document ---
Author Organization [facility] Leisa Dickerson n's Group Address [address], [address] [place] [address]- Care Team Providers Care Installation Superintendent Name Role Phone Dionicio ANTON, Lucy Yanez Primary Care Physician Encounter [facility] [place] Date(s): 04/14/22 - 05/14/22 [facility] Leisa Mcghees [facility] [address], [address] [place], [place] [address] Allergies, Adverse Reactions, Alerts Substance Reaction [...] tablet, Refills 1, Route to Pharmacy Electronically, [id number], 161.5, cm, 08/16/21 14:16:00 EST, Height Start [...] 10:55:00 EDT Start Date: 02/21/20 Status: Ordered [place]-3 oral capsule See Instructions, one daily, 0 [...] Start Date: 02/02/22 Status: Ordered Vitamin D 06731 iu oral capsule 50,000 International_Units, By Mouth, [...] Personnel Name: Lucy Greenberg NP Address: Address: [address] [place] [id number]
--- OUTSIDE RECORDS SUMMARY | 2023-11-15 15:37 | XMS_ITS | Continuity of Care Document ---
Author Organization [facility] Riccardo Ordonez Lalit lt Address [address] [place] [address]- Care Team Providers Care Student Development Specialist Name Role Phone Dionicio ANTON, Lucy Yanez Primary Care Physician [phone] Encounter [facility] Date(s): 10/12/23 - 11/11/23 JOYCELYN Ordonez Adult [address] [place] [address]- Allergies, Adverse Reactions, Alerts Substance Reaction Severity [...] (oldterm) 1 04/19/23 Recor ded SARS-CoV-2 mRNA (bkdvunf-qecj-grrcb) vax 2 04/19/23 Recorded influenza virus vaccine, inactivated 04/05/22 Boyd rded influenza virus vaccine, inactivated 04/28/21 Give n influenza virus vaccine, inactivated 04/22/20 Give n influenza virus vaccine, inactivated 04/09/19 Boyd rded influenza virus vaccine, inactivated 03/28/18 Boyd rded [id number] bivalent booster vax 04/02/22 Recorded SARS-CoV-2 (COVID-19) mRNA-1273 vaccine 11/25/21 R ecorded SARS-CoV-2 (COVID-19) mRNA BNT-162b2 vac 04/22/21 Recorded SARS-CoV-2 (COVID-19) mRNA BNT-162b2 vac 09/09/20 Given SARS-CoV-2 (COVID-19) mRNA BNT-162b2 vac 08/19/20 Recorded zoster vaccine, inactivated 04/06/19 Recorded 1Result Comment: [facility] in [place] 2Result Comment: [facility] in [place] Medications Accu-Chek Paradise Glucose Meter See Instructions, [...] capsule, 1 Refills, Maintenance, 11/09/23 21:34:00 [facility], cm, 09/19/23 7:29:00 EST, [...] Date: 10/11/23 Status: Ordered Freestyle Ortiz 2 [place] Freestyle Ortiz 2 [place], See Instructions, # 1 each, Refills 0, [...] 2 Refills, Maintenance, 10/11/23 7:41:00 EDT, Tablet, [facility], Partial fill upon [...] 10:55:00 EDT Start Date: 02/21/20 Status: Ordered [place]-3 oral capsule 0 Refills, Maintenance, 09/13/23 15:32:00 [...] 1 Refills, Maintenance, 09/05/23 23:33:00 EST, [facility], 161, cm, 05/16/23 10:58:00 EDT, Height, 84.7, kg, 05/04/23 15:05:00 EDT, Dry Weight Start Date: 09/05/23 Status: Ordered Synthroid 0.05 mg oral tablet 1 tablet, By Mouth, Daily, TAKE 2TABLETS ON MONDAY, # 102 tablet, 1 Refills, Maintenance, 11/09/23 21:33:00 EDT, [facility], 161, cm, 09/19/23 7:29:00 EST, Height, 82.7, kg, 09/13/23 14:43:00 EST, Dry Weight Start Date: 11/09/23 Status: Ordered timolol maleate 0.5% ophthalmic solution 1 drops, Eyes, Both, 2 times a day, # 10 mL, 0 Refills, Maintenance, 12/27/19 10:36:00 EDT, Solution Start Date: 12/27/19 Status: Ordered Vitamin D 08899 iu oral capsule 50,000 International_Units, By Mouth, [...] Team Personnel Name: Lucy Greenberg NP Position: [facility] PCO Associate Professional Member Role: PCP Address: Address: [address] [facility] [place] [address]- Care Team Related Persons Name: ALBA TATE Address: home [address] [place] [address]
--- OUTSIDE RECORDS SUMMARY | 2023-11-15 15:37 | XMS_ITS | Continuity of Care Document ---
Author Organization [facility] José Luis Lalit lt Address [address] [place] [address]- Care Team Providers Care Wire Frame Lamp Shade Maker Name Role Phone Dionicio ANTON, Lucy Yanez Primary Care Physician [place] [facility]/28[place]23 - 03/30/23 [facility] Adult [address] [place] [address]- Allergies, Adverse Reactions, Alerts Substance Reaction Severity [...] 0 Refills, Maintenance, 10/31/22 11:47:00 EDT, [id number], 161, cm, 10/28/22 13:31:00 EDT, Height, 86.9, [...] Refills 1, Route to Pharmacy Electronically, [facility] STORE [id number], 161.5, cm, 08/16/21 14:16:00 EST, Height Start [...] 09/02/23 11:33:00 EST, 03/06/23 11:33:00 EDT, [facility]/pharmacy #[id number], 161, cm, 02/22/23 11:03:00 [...] EDT Start Date: 02/21/20 Status: Ordered [place]-3 oral capsule See Instructions, one daily, 0 [...] Start Date: 02/02/22 Status: Ordered Vitamin D 38979 iu oral capsule 50,000 International_Units, By Mouth, [...] team information Care Team Personnel Name: Dionicio NATON, Lucy Yanez Position: S PCO Associate Professional Member Role: PCP Address: Address: [address] [place] [address]- Care Team Related Persons Name: ALBA TATE Address: home [address] [place] [address]
--- OUTSIDE RECORDS SUMMARY | 2023-11-15 15:37 | XMS_ITS | Continuity of Care Document ---
Author Organization [facility] Riccardo Nielsen Lalit lt Address [address] [place] [address]- Care Team Providers Care Elevator Constructor Electric Name Role Phone Dionicio ANTON, Lucy Yanez Primary Care Physician [phone] Encounter [facility] Date(s): 09/19/23 - 09/26/23 [facility] Riccardo Nielsen Adult [address] [place] [address]- Encounter Diagnosis Type II diabetes mellitus(Discharge Diagnosis) - 09/19/23 Benign essential hypertension(Discharge Diagnosis) - 09/19/23 Hypothyroidism(Discharge Diagnosis) - 09/19/23 Hypercholesterolemia(Discharge Diagnosis) - 09/19/23 Attending Physician: Lucy Greenberg NP Allergies, Adverse [...] (oldterm) 1 04/19/23 Recor ded SARS-CoV-2 mRNA (aeoeoxh-mwys-ibrij) vax 2 04/19/23 Recorded influenza virus vaccine, inactivated 04/05/22 Boyd rded influenza virus vaccine, inactivated 04/28/21 Give n influenza virus vaccine, inactivated 04/22/20 Give n influenza virus vaccine, inactivated 04/09/19 Boyd rded influenza virus vaccine, inactivated 03/28/18 Boyd rded [id number] bivalent booster vax 04/02/22 Recorded SARS-CoV-2 (COVID-19) mRNA-1273 vaccine 11/25/21 R ecorded SARS-CoV-2 (COVID-19) mRNA BNT-162b2 vac 04/22/21 Recorded SARS-CoV-2 (COVID-19) mRNA BNT-162b2 vac 09/09/20 Given SARS-CoV-2 (COVID-19) mRNA BNT-162b2 vac 08/19/20 Recorded zoster vaccine, inactivated 04/06/19 Recorded 1Result Comment: [facility] in [place] 2Result Comment: [facility] [place] Medications Accu-Chek Paradise Glucose Meter See Instructions, [...] tablet, 1 Refills, Maintenance, 09/03/23 6:59:00 EST, [facility], 161, cm, 05/16/23 10:58:00 EDT, Height, 84.7, kg, 05/04/23 15:05:00 EDT, Dry Weight Start Date: 09/03/23 Status: Ordered esomeprazole 20 mg oral enteric coated capsule 1 capsule, By Mouth, Daily, # 90 capsule, 3 Refills, Maintenance, 01/27/23 9:13:00 EDT, [facility], 161, cm, 10/28/22 13:31:00 [...] Date: 09/19/23 Status: Ordered Freestyle Ortiz 2 [place] Freestyle Ortiz 2 [place], See Instructions, # 1 each, Refills 0, [...] tablet, 3 Refills, Maintenance, 08/25/23 7:12:00 EST, [facility], Partial fill upon [...] capsule, 1 Refills, Maintenance, 09/05/23 6:39:00 EST, [facility], 90, TAKE 1 CAPSULE DAILY, 161, cm, 05/16/23 10:58:00 EDT, Height, 84.7, kg, 05/04/23 15:05:00 EDT, Dry Weight Start Date: 09/05/23 Status: Ordered Jardiance 10 mg oral tablet 1 tablet = 10 mg, By Mouth, Daily in AM, # 30 tablet, 0 Refills, Maintenance, 09/19/23 7:48:00 EST,Tablet, [facility]/pharmacy #[id number], Partial fill upon patient [...] Stop 02/29/24 11:33:00 EDT, 09/02/23 11:33:00 EST, [facility], 161, cm, 02/22/23 [...] 10:55:00 EDT Start Date: 02/21/20 Status: Ordered [place]-3 oral capsule 0 Refills, Maintenance, 09/13/23 15:32:00 [...] tablet, 1 Refills, Maintenance, 09/05/23 23:33:00 EST, [facility], 161, cm, 05/16/23 10:58:00 EDT, Height, 84.7, kg, 05/04/23 15:05:00 EDT, Dry Weight Start Date: 09/05/23 Status: Ordered Synthroid 0.05 mg oral tablet 1 tablet, By Mouth, Daily, TAKE 2TABLETS ON MONDAY, # 102 tablet, 1 Refills, Maintenance, 06/20/23 10:22:00 EST, [facility], 161, cm, 05/16/23 10:58:00 EDT, Height, 84.7, kg, 05/04/23 15:05:00 EDT, Dry Weight Start Date: 06/20/23 Status: Ordered timolol maleate 0.5% ophthalmic solution 1 drops, Eyes, Both, 2 times a day, # 10 mL, 0 Refills, Maintenance, 12/27/19 10:36:00 EDT, Solution Start Date: 12/27/19 Status: Ordered Vitamin D 85701 iu oral capsule 50,000 International_Units, By Mouth, [...] Informant Type II diabetes mellitus Discharge Diagnosis 09/19/23 Benign essential hypertension Discharge Diagnosis 09/19/23 Hypothyroidism Discharge Diagnosis 09/19/23 Hypercholesterolemia Discharge Diagnosis 09/19/23 Vital Signs Most recent to oldest [Reference Range]: 1 Height 161 cm (09/19/23 7:29 AM) Weight 81.8 kg (09/19/23 7:29 AM) Oxygen Saturation [94-100 %] 99 % (09/19/23 7:29 AM) Pulse Rate [55-90 bpm] 80 bpm (09/19/23 7:29 AM) Body Mass Index [18.5-24.99 kg/m2] 31.56 kg/m2 *>HHI* (09/19/23 7:29 AM) Blood Pressure [90-138/55-84 mm Hg] 118/ 74mm Hg (09/19/23 7:29 AM) Blood pressure sites Arm, left (09/19/23 7:29 AM) Weight Obtained Via Standing scale (09/19/23 7:29 AM) Social History Social History Type Response Smoking Status Former smoker, quit more than 30 days ago entered on: 05/16/19 Sex Note * Alexandra Paez: PERFORM, SIGN, VERIFY Event Display: Patient Education/Instruction Authored Date: [id number] [facility] *[facility] Clinical Summary Name RENEE TATE Age 83 Years 1940 PCP [id number] Visit Date 09/19/2023 07:24:00 Additional Instructions: Scheduled Appointments?? Future Appointments ?No Future Appointments Scheduled Follow-Up Instructions ?? With: Address: When: Lucy Greenberg NP [address] [facility] [place] [address] In 3 months Comments: long Diagnosis Type 2 diabetes mellitus without complications; Pure hypercholesterolemia, unspecified; Essential (primary) hypertension; Hypothyroidism, unspecified Medications: Please continue your medications until treatment is completed or stopped by your provider. Discuss any questions related to medications with your provider. New Medications [id number], [address], [place] [id number], [phone] empagliflozin (Jardiance 10 mg oral tablet) 1 tab(s) Oral Daily in the morning. Refills: 0. Next Dose: Medications to Continue with No Changes These medications were not printed or sent to your pharmacy Anastrozole (anastrozole 1 mg oral tablet) 1 tab(s) Oral Daily. Refills: 1. Next Dose: ascorbic acid/chondroitin/glucosa/chino (Glucosamine Chondroitin) Oral Daily. Next Dose: Durable Medical Equipment (Accu-Chek Paradise [...] Refills: 5. Next Dose: Durable Medical Equipment ([employer] Verio Test Strips) To check fasting blood sugar daily. E11.9 DM II. Refills: 5. Next Dose: Ergocalciferol (Vitamin D 64821 iu oral capsule) 50,000 International Unit Oral [...] 1. Next Dose: Multivitamin Daily. Next Dose: Princeton-3 Polyunsaturated Fatty Acids (Princeton-3 oral capsule) Next Dose: Rosuvastatin (rosuvastatin 10 mg oral tablet) 1 tab(s) Oral Daily. Refills: 1. Next Dose: Timolol Ophthalmic (timolol maleate 0.5% ophthalmic solution) 1 Drops Both eyes twice a day. Next Dose: Allergy Info:?? metFORMIN; ALVARO inhibitors; Latex; Bactrim; Macrobid; beta blockers; cefuroxime Medications Given This Visit Future Orders ?No future orders Vital Signs Height 161 cm Weight 81.8 kg BMI 31.56 kg/m2 Blood Pressure 118 mm Hg/74 mm Hg Temperature Pulse Rate 80 bpm Respiratory Rate 02 Sat Mode of Delivery 99 %/ You can now view a summary of your hospital visit from the comfort of your home through a free online portal called [employer]. [employer] is a website that allows you to securely view your medical information including discharge summary, medications and follow-up visits. ??You can alsosend a secure electronic message to your doctor???s office to request appointments, renew medications or just ask a question. You can enroll at [email or web address] or register during your next office visit. [...] care provider, you may find a [facility] provider by calling [facility] [employer] [facility] at [phone]. [facility], in keeping with [facility] guidance, no longer requires face masks [...] to support your individualized medical care. * Alexandra Paez: PERFORM, SIGN, VERIFY Event Display: Patient Education/Instruction Authored Date: [id number] [facility] *[facility] Clinical Summary Name RENEE TATE Age 83 Years 1940 PCP Lucy Greenberg NP PCP Visit Date 09/19/2023 07:24:00 Additional Instructions: Scheduled Appointments?? Future Appointments ?*[facility]MP??So??[place]é [place] ?Phone:??--?Fax:??-- ?Appt. Date:??11/07/2023?9:50 AM ?Scheduled Provider:??Lucy Greenberg NP Follow-Up Instructions ?? With: Address: When: Lucy Greenberg NP [address] [facility] [place] [address] In 3 months Comments: long Diagnosis Type 2 diabetes mellitus without complications; Pure hypercholesterolemia, unspecified; Essential (primary) hypertension; Hypothyroidism, unspecified Medications: Please continue your medications until treatment is completed or stopped by your provider. Discuss any questions related to medications with your provider. New Medications [id number], [address], [place] [id number], [phone] empagliflozin (Jardiance 10 mg oral tablet) 1 tab(s) Oral Daily in the morning. Refills: 0. Next Dose: Medications to Continue with No Changes These medications were not printed or sent to your pharmacy Anastrozole (anastrozole 1 mg oral tablet) 1 tab(s) Oral Daily. Refills: 1. Next Dose: ascorbic acid/chondroitin/glucosa/chino (Glucosamine Chondroitin) Oral Daily. Next Dose: Durable Medical Equipment (Accu-Chek Paradise [...] Refills: 5. Next Dose: Ergocalciferol (Vitamin D 14190 iu oral capsule) 50,000 International Unit Oral [...] 1. Next Dose: Multivitamin Daily. Next Dose: Princeton-3 Polyunsaturated Fatty Acids (Princeton-3 oral capsule) Next Dose: Rosuvastatin (rosuvastatin 10 mg oral tablet) 1 tab(s) Oral Daily. Refills: 1. Next Dose: Timolol Ophthalmic (timolol maleate 0.5% ophthalmic solution) 1 Drops Both eyes twice a day. Next Dose: Allergy Info:?? metFORMIN; ALVARO inhibitors; Latex; Bactrim; Macrobid; beta blockers; cefuroxime Medications Given This Visit Future Orders ?No future orders Vital Signs Height 161 cm Weight 81.8 kg BMI 31.56 kg/m2 Blood Pressure 118 mm Hg/74 mm Hg Temperature Pulse Rate 80 bpm Respiratory Rate 02 Sat Mode of Delivery 99 %/ You can now view a summary of your hospital visit from the comfort of your home through a free online portal called [employer]. [employer] is a website that allows you to securely view your medical information including discharge summary, medications and follow-up visits. ??You can alsosend a secure electronic message to your doctor???s office to request appointments, renew medications or just ask a question. You can enroll at [email or web address] or register during your next office visit. [...] care provider, you may find a [facility] provider by calling [facility] at [phone]. [facility], in keeping with [facility] guidance, no longer requires face masks [...] Personnel Name: Dionicio ANTON, Lucy Yanez Position: [facility] PCO Associate Professional Member Role: PCP Address: Address: [address] [place] [address] Riccardo Nielsen [facility] [place] [address]- [place] Care Team Related Persons Name: ALBA TATE Address: home [address] [place] [address]
--- OUTSIDE RECORDS SUMMARY | 2023-11-15 15:37 | XMS_ITS | Continuity of Care Document ---
Author Organization [facility] José Luis Lalit lt Address [address] [place] [address]- Care Team Providers Care General Store Manager Name Role Phone Dionicio ANTON, Lucy Yanez Primary Care Physician [phone] Encounter [facility] Date(s): 07/19/22 - 08/18/22 [facility] José Luis Adult [address] [place] [address]- Allergies, Adverse Reactions, Alerts Substance Reaction Severity [...] 0 Refills, Maintenance, 07/17/22 15:34:00 EST, [facility], 161.3, cm, 07/15/22 9:49:00 EST, Height, 88, kg, 02/02/22 13:19:00 EDT, Dry Weight Start Date: 07/17/22 Status: Ordered glipiZIDE 5 mg oral tablet 15 mg, 3, tablet, By Mouth, Daily, # 270 tablet, Refills 1, Tot. Refills 1, Maintenance, 07/22/22 14:06:00 EST, Route to Pharmacy Electronically, [facility], Partial fill [...] tablet, Refills 1, Route to Pharmacy Electronically, [id number], 161.5, cm, 08/16/21 14:16:00 EST, Height Start Date: 09/03/21 Status: Ordered LORazepam 0.5 mg oral tablet 1 tablet = 0.5 mg, By Mouth, Daily at bedtime, for 30 days, # 30 tablet, 2 Refills, Acute 10/17/22 8:19:00 EDT, 07/19/22 8:19:00 EST, [facility], 161.3, cm, 07/15/22 9:49:00 EST, [...] 10:55:00 EDT Start Date: 02/21/20 Status: Ordered [place]-3 oral capsule See Instructions, one daily, 0 [...] 9:47:00 EST, Route to Pharmacy Electronically, [facility]/pharmacy #[id number], Partial fill upon patient request if the [...] Start Date: 02/02/22 Status: Ordered Vitamin D 97574 iu oral capsule 50,000 International_Units, By Mouth, [...] Personnel Name: Dionicio ANTON, Lucy Yanez Position: [facility] PCO Associate Professional Member Role: PCP Address: Address: [address] [place] [address]- Care Team Related Persons Name: ALBA TATE Address: home [address] [place] [address]
--- OUTSIDE RECORDS SUMMARY | 2023-11-15 15:37 | XMS_ITS | Continuity of Care Document ---
Author Organization [facility] Riccardo Ordonez Lalit lt Address [address] [place] [address]- Care Team Providers Care Tooth Inspector Name Role Phone Dionicio ANTON, Lucy Yanez Primary Care Physician [place] [facility] [place] 03/10/20 - 04/09/20 [facility] Adult [address] [place] [address]- [facility] Allergies, Adverse Reactions, Alerts Substance Reaction Severity [...] Refills, Maintenance, 01/14/20 11:28:00 EDT, Capsule, [facility], 1 capsule By Mouth Daily, 161.5, cm, 01/07/20 15:02:00 EDT, Height Start Date: 01/14/20 Status: Ordered levothyroxine 0.05 mg oral tablet 1 tablet = 50 mcg, By Mouth, Daily, recheck tsh level in 6 weeks, # 90 tablet, 1 Refills, Maintenance, 02/10/20 12:07:00 EDT, [facility], 161.5, cm, 01/07/20 15:02:00 EDT, Height Start Date: 02/10/20 Stop Date: 03/11/20 Status: Ordered LORazepam 0.5 mg oral tablet 1 tablet = 0.5 mg, By Mouth, Daily at bedtime, for 30 days, # 30 tablet, 1 Refills, Acute 04/10/20 8:57:00 EDT, 02/10/20 8:57:00 EDT, [facility], 161.5, cm, 01/07/20 15:02:00 EDT, [...] 3 Refills, Maintenance, 01/14/20 11:32:00 EDT, [facility], 161.5, cm, 01/07/20 15:02:00 EDT, Height Start Date: 01/14/20 Status: Ordered Multivitamin Daily, 0 Refills, Maintenance, 02/21/20 10:55:00 EDT Start Date: 02/21/20 Status: Ordered Nexium Capsule See Instructions, 22 mg 1 every other day, Refills 0, Maintenance, 05/06/19 16:33:27 EDT, Instructions Replace Required Details Start Date: 05/06/19 Status: Ordered Nade[place]-3 oral capsule See Instructions, one daily, 0 [...]
--- OUTSIDE RECORDS SUMMARY | 2023-11-15 15:37 | XMS_ITS | Continuity of Care Document ---
Author Organization [facility] José Luis Lalit lt Address [address] [place] [address]- Care Team Providers Care Wire Stitcher Machine Name Role Phone Dionicio ANTON, Lucy Yanez Primary Care Physician Encounter [facility] Date(s): 01/28/21 - 02/27/21 [facility] Riccardo Ordonez Adult [address] [place] [address]- Allergies, Adverse Reactions, Alerts Substance Reaction Severity [...] tablet, 3 Refills, Maintenance, 12/30/20 11:45:00EDT, [facility], 161.5, cm, 12/30/20 11:09:00 EDT, Height Start Date: 12/30/20 Stop Date: 12/25/21 Status: Ordered Multivitamin Daily, 0 Refills, Maintenance, 02/21/20 10:55:00 EDT Start Date: 02/21/20 Status: Ordered Nexium Capsule See Instructions, 22 mg 1 every other day, Refills 0, Maintenance, 05/06/19 16:33:27 EDT, Instructions Replace Required Details Start Date: 05/06/19 Status: Ordered Bryan-3 oral capsule See Instructions, one daily, 0 [...]
--- OUTSIDE RECORDS SUMMARY | 2023-11-15 15:37 | XMS_ITS | Continuity of Care Document ---
Author Organization [facility] José Luis Lalit lt Address [address] [place] [address]- Care Team Providers Care District Representative Name Role Phone Dionicio ANTON, Lucy Yanez Primary Care Physician [phone] Encounter [facility] Date(s): 03/16/23 - 04/15/23 [facility] Adult [address] [place] [address]- Allergies, Adverse Reactions, Alerts Substance Reaction Severity [...] 1 Refills, Maintenance, 04/09/23 17:21:00 EDT, [facility], 161, cm, 02/22/23 11:03:00 EDT, Height, 86.9, kg, 10/28/22 13:31:00 EDT, Dry Weight Start Date: 04/09/23 Status: Ordered Cipro 250 mg oral tablet 1 tablet = 250 mg, By Mouth, Every 12 hours, for 5 days, # 10 tablet, 0 Refills, Acute 04/19/23 11:36:00 EDT, 04/14/23 11:36:00 EDT, [facility]/pharmacy #[id number], Partial fill [...] capsule, 3 Refills, Maintenance, 01/27/23 9:13:00 EDT, [facility], 161, cm, 10/28/22 13:31:00 EDT, Height, 86.9, kg, 10/28/22 13:31:00 EDT, DryWeight Start Date: 01/27/23 Status: Ordered GlipiZIDE XL 10 mg oral tablet, extended release 2 tablet = 20 mg, By Mouth, Daily, # 180 tablet, 1 Refills, Maintenance, 02/16/23 6:50:00 EDT, [facility], Partial fill upon patient request if the prescription is for a schedule II opioid drug., 161, cm, 02/07/23 11:15:00 EDT,... Start Date: 02/16/23 Status: Ordered hydrochlorothiazide-triamterene 25 mg-37.5 mg oral capsule 1 capsule, By Mouth, Daily, # 90 capsule, 1 Refills, Maintenance, 04/06/23 8:40:00 EDT, [facility], 90, TAKE 1 CAPSULE DAILY, 161, cm, 02/22/23 11:03:00 EDT, Height, 86.9, kg, 10/28/22 13:31:00 EDT, Dry Weight Start Date: 04/06/23 Status: Ordered loratadine 10 mg oral tablet 1, tablet, By Mouth, Daily, # 90 tablet, Refills 1, Route to Pharmacy Electronically, [facility], 161.5, cm, 08/16/21 14:16:00 EST, Height Start [...] Stop 09/02/23 11:33:00 EST, 03/06/23 11:33:00 EDT, [facility]/pharmacy #[id number], 161, cm, [...] 10:55:00 EDT Start Date: 02/21/20 Status: Ordered [place]-3 oral capsule See Instructions, one daily, 0 [...] Start Date: 02/02/22 Status: Ordered Vitamin D 43073 iu oral capsule 50,000 International_Units, By Mouth, [...] Associate Professional Member Role: PCP Address: Address: [address] [place] [address]- Care Team Related Persons Name: ALBA TATE Address: [address] [place] [address]
--- OUTSIDE RECORDS SUMMARY | 2023-11-15 15:37 | XMS_ITS | Continuity of Care Document ---
Author Organization [facility] José Luis Lalit lt Address [address] [place] [address]- Care Team Providers Care Sample Maker Name Role Phone Dionicio ANTON, Lucy Yanez Primary Care Physician Encounter [facility] Date(s): 04/15/22 - 05/15/22 [facility] Riccardo Ordonez Adult [address] [place] [address]- Allergies, Adverse Reactions, Alerts Substance Reaction Severity [...] tablet, Refills 1, Route to Pharmacy Electronically, [facility] STORE 60884, 161.5, cm, 08/16/21 14:16:00 EST, Height Start [...] 10:55:00 EDT Start Date: 02/21/20 Status: Ordered [place]-3 oral capsule See Instructions, one daily, 0 [...] Start Date: 02/02/22 Status: Ordered Vitamin D 90667 iu oral capsule 50,000 International_Units, By Mouth, [...] Personnel Name: Lucy Greenberg NP Address: Address: [address] [place] [id number]
--- OUTSIDE RECORDS SUMMARY | 2023-11-15 15:38 | XMS_ITS | Continuity of Care Document ---
Author Organization [facility] José Luis Lalit lt Address [address] [place] [address]- Care Team Providers Care Community Engagement Specialist Name Role Phone Dionicio ANTON, Lucy Yanez Primary Care Physician [phone] En[place] [facility] Date(s): 10/26/20 - 11/25/20 [facility] [place] Adult [address] [place] [address]- Allergies, Adverse Reactions, Alerts Substance Reaction Severity [...] Required Details Start Date: 05/06/19 Status: Ordered [place]-3 oral capsule See Instructions, one daily, 0 [...]
--- OUTSIDE RECORDS SUMMARY | 2023-11-15 15:38 | XMS_ITS | Continuity of Care Document ---
Author Organization [facility] Address [address] [place] [address]- Care Team Providers Care Special Procedure Tech Name Role Phone Dionicio ANTON, Lucy Yanez Primary Care Physician [place] [facility] Date(s): 05/03/23 - 07/04/23 [facility] Care [address] [place] [address]- Discharge Disposition: A-D/C Home Attending Physician: Kris Noe DO Admitting Physician: Kris Noe DO Referring Physician: Dionicio ANTON, Lucy Yanez Allergies, [...] (oldterm) 1 04/19/23 Recor ded SARS-CoV-2 mRNA (stvgsik-yrby-ulfva) vax 2 04/19/23 Recorded influenza virus vaccine, inactivated 04/05/22 Boyd rded influenza virus vaccine, inactivated 04/28/21 Give n influenza virus vaccine, inactivated 04/22/20 Give n influenza virus vaccine, inactivated 04/09/19 Boyd rded influenza virus vaccine, inactivated 03/28/18 Boyd rded [id number] bivalent booster vax 04/02/22 Recorded SARS-CoV-2 (COVID-19) mRNA-1273 vaccine 11/25/21 R ecorded SARS-CoV-2 (COVID-19) mRNA BNT-162b2 vac 04/22/21 Recorded SARS-CoV-2 (COVID-19) mRNA BNT-162b2 vac 09/09/20 Given SARS-CoV-2 (COVID-19) mRNA BNT-162b2 vac 08/19/20 Recorded zoster vaccine, inactivated 04/06/19 Recorded 1Result Comment: [facility] [place] 2Result Comment: [facility] [place] Medications Accu-Chek [place] Glucose Meter See Instructions, [...] capsule, 3 Refills, Maintenance, 01/27/23 9:13:00 EDT, [facility], 161, cm, 10/28/22 13:31:00 EDT, Height, 86.9, kg, 10/28/22 13:31:00 EDT, DryWeight Start Date: 01/27/23 Status: Ordered GlipiZIDE XL 10 mg oral tablet, extended release 2 tablet = 20 mg, By Mouth, Daily, # 180 tablet, 3 Refills, Maintenance, 06/22/23 6:47:00 EST, [facility], Partial fill [...] 07/20/23 6:50:00 EST, 04/21/23 6:50:00 EDT, [facility], 161, cm, 02/22/23 11:03:00 EDT, Height, 86.9, kg, 10/28/22 13:31:00 EDT, Dry Weight Start Date: 04/21/23 Stop Date: 07/20/23 Status: Ordered losartan 50 mg oral tablet 1 tablet, By Mouth, Daily, for 90 days, # 90 tablet, 1 Refills, Physician Stop 02/29/24 11:33:00 EDT, 09/02/23 11:33:00 EST, [facility], 161, cm, 02/22/23 11:03:00 [...] Start Date: 12/27/19 Status: Ordered Vitamin D 25878 iu oral capsule 50,000 International_Units, By Mouth, [...] Active Type II diabetes mellitus Confirmed Active Vital Signs Most recent to oldest [Reference Range]: 1 Height 161 cm (05/04/23 3:05 PM) Weight 84.7 kg (05/04/23 3:05 PM) Oxygen Saturation [94-100 %] 99 % (05/04/23 3:05 PM) Pulse Rate [55-90 bpm] 81 bpm (05/04/23 3:05 PM) Body Mass Index [18.5-24.99 kg/m2] 32.68 kg/m2 *>HHI* (05/04/23 3:05 PM) Blood Pressure [90-138/55-84 mm Hg] 146/ 64mm Hg *H* (05/04/23 3:05 PM) Temperature [96.8-100.4 DegF] 97.6 DegF (05/04/23 3:05 PM) Mode of Delivery (Oxygen) Room air (05/04/23 3:05 PM) Blood pressure sites Arm, right (05/04/23 3:05 PM) Temperature Route Oral (05/04/23 3:05 PM) Dry Weight 84.7 kg (05/04/23 3:05 PM) Weight Obtained Via Standing scale (05/04/23 3:05 PM) Dry Weight Obtained Via Standing scale (05/04/23 3:05 PM) Social History Social History Type Response Smoking Status Former smoker, quit more than 30 days ago entered on: 05/16/19 Sex Patient Care team information Care Team Personnel Name: Dionicio ANTON, Lucy Yanez Position: S PCO Associate Professional Member Role: PCP Address: Address: [address] [place] [address]- Care Team Related Persons Name: ALBA TATE Address: home [address] [place] [address]
--- OUTSIDE RECORDS SUMMARY | 2023-11-15 15:38 | XMS_ITS | Continuity of Care Document ---
Author Organization [facility] Ricacrdo Ordonez Lalit lt Address [address] [place] [address]- Care Team Providers Care Detailer School Photographs Name Role Phone Dionicio ANTON, Lucy Yanez Primary Care Physician [phone] En[place] [facility] Date(s): 12/30/20 - 01/06/21 [facility] Riccardo Ordonez Adult [address] [place] [address]- Encounter Diagnosis Medicare annual wellness visit, subsequent(Discharge Diagnosis) - 12/30/20 Anxiety(Discharge Diagnosis) - 12/30/20 Benign essential hypertension(Discharge Diagnosis) - 12/30/20 Hypothyroidism(Discharge Diagnosis) - 12/30/20 Hypercholesterolemia(Discharge Diagnosis) - 12/30/20 Attending Physician: Lucy Greenberg NP Allergies, Adverse [...] rded zoster vaccine, inactivated 04/06/19 Recorded Medications aspirin 81 mg oral delayed release [...] Required Details Start Date: 05/06/19 Status: Ordered [place]-3 oral capsule See Instructions, one daily, [...] Medicare annual wellness visit, subsequent Discharge Diagnosis 12/30/20 Anxiety Discharge Diagnosis 12/30/20 Benign essential hypertension Discharge Diagnosis 12/30/20 Hypothyroidism Discharge Diagnosis 12/30/20 Hypercholesterolemia Discharge Diagnosis 12/30/20 Vital Signs Most recent to oldest [Reference Range]: 1 Height 161.5 cm (12/30/20 11:09 AM) Weight 84.2 kg (12/30/20 11:09 AM) Oxygen Saturation [94-100 %] 99 % (12/30/20 11:09 AM) Pulse Rate [55-90 bpm] 78 bpm (12/30/20 11:09 AM) Body Mass Index [18.5-24.99] 32.28 *>HHI* (12/30/20 11:09 AM) Blood Pressure [90-138/55-84 mm Hg] 124/ 75mm Hg (12/30/20 11:09 AM) Temperature [96.8-100.4 DegF] 98.3 DegF (12/30/20 11:09 AM) Blood pressure sites Arm, left (12/30/20 11:09 AM) Temperature Route Oral (12/30/20 11:09 AM) Weight Obtained Via Standing scale (12/30/20 11:09 AM) Social History Social History Type Response Smoking Status Former smoker, quit more than 30 days ago entered on: 05/16/19 Sex
--- OUTSIDE RECORDS SUMMARY | 2023-11-15 15:38 | XMS_ITS | Continuity of Care Document ---
Author Organization [facility] Riccardo Ordonez Lalit lt Address [address] [place] [address]- Care Team Providers Care Structural Worker Name Role Phone Dionicio ANTON, Lucy Yanez Primary Care Physician Encounter [facility] [place] Date(s): 07/18/23 - 08/17/23 JOYCELYN Ordonez Adult [address] [place] [address]- Allergies, Adverse Reactions, Alerts Substance Reaction Severity [...] (oldterm) 1 04/19/23 Recor ded SARS-CoV-2 mRNA (ouroxcl-xotn-ovxxd) vax 2 04/19/23 Recorded influenza virus vaccine, inactivated 04/05/22 Boyd rded influenza virus vaccine, inactivated 04/28/21 Give n influenza virus vaccine, inactivated 04/22/20 Give n influenza virus vaccine, inactivated 04/09/19 Boyd rded influenza virus vaccine, inactivated 03/28/18 Boyd rded [id number] bivalent booster vax 04/02/22 Recorded SARS-CoV-2 (COVID-19) mRNA-1273 vaccine 11/25/21 R ecorded SARS-CoV-2 (COVID-19) mRNA BNT-162b2 vac 04/22/21 Recorded SARS-CoV-2 (COVID-19) mRNA BNT-162b2 vac 09/09/20 Given SARS-CoV-2 (COVID-19) mRNA BNT-162b2 vac 08/19/20 Recorded zoster vaccine, inactivated 04/06/19 Recorded 1Result [facility] [place] 2Result [facility] [place] Medications Accu-Chek [place] Glucose Meter See Instructions, [...] tablet, 3 Refills, Maintenance, 06/22/23 6:47:00 EST, [facility], Partial fill upon [...] Start Date: 12/27/19 Status: Ordered Vitamin D 20812 iu oral capsule 50,000 International_Units, By Mouth, [...] Associate Professional Member Role: PCP Address: Address: [address] [place] [address]- Care Team Related Persons Name: ALBA TATE Address: [address] [place] [address]
--- OUTSIDE RECORDS SUMMARY | 2023-11-15 15:38 | XMS_ITS | Continuity of Care Document ---
Author Organization [facility] José Luis Lalit lt Address [address] [place] [address]- Care Team Providers Care Security Ambassador Name Role Phone Dionicio ANTON, Lucy Yanez Primary Care Physician [phone] Encounter [facility] Date(s): 12/31/20 - 01/30/21 [facility] José Luis Adult [address] [place] [address]- Allergies, Adverse Reactions, Alerts Substance Reaction Severity [...] 03/05/21 7:26:00 EDT, 01/04/21 7:26:00 EDT, [facility], 161.5, cm, 12/30/20 11:09:00 EDT, [...] tablet, 3 Refills, Maintenance, 12/30/20 11:45:00EDT, [facility], 161.5, cm, 12/30/20 11:09:00 EDT, Height Start Date: 12/30/20 Stop Date: 12/25/21 Status: Ordered Multivitamin Daily, 0 Refills, Maintenance, 02/21/20 10:55:00 EDT Start Date: 02/21/20 Status: Ordered Nexium Capsule See Instructions, 22 mg 1 every other day, Refills 0, Maintenance, 05/06/19 16:33:27 EDT, Instructions Replace Required Details Start Date: 05/06/19 Status: Ordered [place]-3 oral capsule See Instructions, one daily, 0 [...]
--- OUTSIDE RECORDS SUMMARY | 2023-11-15 15:38 | XMS_ITS | Continuity of Care Document ---
Author Organization [facility] José Luis Lalit lt Address [address] [place] [address]- Care Team Providers Care Cone Sewer Name Role Phone Dionicio ANTON, Lucy Yanez Primary Care Physician [phone] [place] [facility] [place]02[place]20 - 08/01/[address] [facility] [place] Adult [address] [place] [address]- Allergies, Adverse Reactions, Alerts Substance Reaction Severity [...] 1 Refills, Maintenance, 07/15/20 12:03:00 EST, [facility], 161.5, cm, 07/01/20 9:54:00 EST, Height Start Date: 07/15/20 Status: Ordered losartan 50 mg oral tablet 50 mg, 1, tablet, By Mouth, Daily, # 90 tablet, Refills 3, Tot. Refills 3, Maintenance, 01/14/20 11:31:00 EDT, Route to Pharmacy Electronically, [facility], 161.5, cm, 01/07/20 15:02:00 EDT, Height Start Date: 01/14/20 Status: Ordered metFORMIN 500 mg oral tablet, extended release See Instructions, take 2 in the morning and one in the evening, # 90 tablet, 3 Refills, Maintenance, 07/02/20 12:22:00 EST, [facility]/pharmacy #[id number], 161.5, cm, 07/01/20 9:54:00 EST, Height Start Date: 07/02/20 Status: Ordered Multivitamin Daily, 0 Refills, Maintenance, 02/21/20 10:55:00 EDT Start Date: 02/21/20 Status: Ordered Nexium Capsule See Instructions, 22 mg 1 every other day, Refills 0, Maintenance, 05/06/19 16:33:27 EDT, Instructions Replace Required Details Start Date: 05/06/19 Status: Ordered [place]-3 oral capsule See Instructions, one daily, 0 [...]
--- OUTSIDE RECORDS SUMMARY | 2023-11-15 15:38 | XMS_ITS | Continuity of Care Document ---
Author Organization [facility] Riccardo Ordonez Lalit lt Address [address] [place] [address]- Care Team Providers Care Bin Cleaner Name Role Phone Dionicio ANTON, Lucy Yanez Primary Care Physician [phone] [place] [facility] [place] Date(s): 06/12/23 - 07/12/23 [facility] Riccardo Ordonez Adult [address] [place] [address]- Allergies, Adverse Reactions, Alerts Substance Reaction Severity [...] (oldterm) 1 04/19/23 Recor ded SARS-CoV-2 mRNA (qemrups-hxjk-hghwl) vax 2 04/19/23 Recorded influenza virus vaccine, inactivated 04/05/22 Boyd rded influenza virus vaccine, inactivated 04/28/21 Give n influenza virus vaccine, inactivated 04/22/20 Give n influenza virus vaccine, inactivated 04/09/19 Boyd rded influenza virus vaccine, inactivated 03/28/18 Boyd rded [id number] bivalent booster vax 04/02/22 Recorded SARS-CoV-2 (COVID-19) mRNA-1273 vaccine 11/25/21 R ecorded SARS-CoV-2 (COVID-19) mRNA BNT-162b2 vac 04/22/21 Recorded SARS-CoV-2 (COVID-19) mRNA BNT-162b2 vac 09/09/20 Given SARS-CoV-2 (COVID-19) mRNA BNT-162b2 vac 08/19/20 Recorded zoster vaccine, inactivated 04/06/19 Recorded 1Result Comment: [facility] [place] 2Result Comment: [facility] [place] Medications Accu-Chek [place] Glucose Meter See Instructions, [...] tablet, 1 Refills, Maintenance, 04/09/23 17:21:00 EDT, [facility], 161, cm, 02/22/23 [...] 06/22/23 6:47:00 EST, [facility], Partial fill upon patient request if the prescription is for a schedule II opioid drug., 161, cm, 05/16/23 10:58:00 EDT,... Start Date: 06/22/23 Status: Ordered hydrochlorothiazide-triamterene 25 mg-37.5 mg oral capsule 1 capsule, By Mouth, Daily, # 90 capsule, 1 Refills, Maintenance, 04/06/23 8:40:00 EDT, [facility], 90, TAKE 1 [...] Start Date: 12/27/19 Status: Ordered Vitamin D 96311 iu oral capsule 50,000 International_Units, By Mouth, [...] Personnel Name: Dionicio ANTON, Lucy Yanez Position: [facility] PC[facility] Associate Professional Member Role: PCP Address: Address: [address] [place] [address]- Care Team Related Persons Name: ALBA TATE Address: [address] [place] [address]
--- OUTSIDE RECORDS SUMMARY | 2023-11-15 15:38 | XMS_ITS | Continuity of Care Document ---
Author Organization [facility] Riccardo Ordonez Lalit lt Address [address] [place] [address]- Care Team Providers Care Fourth Mate Name Role Phone Dionicio ANTON, Lucy Yanez Primary Care Physician Encounter [facility] Date(s): 08/03/22 - 09/02/22 JOYCELYN Ordonez Adult [address] [place] [address]- Allergies, Adverse Reactions, Alerts Substance Reaction Severity [...] 09/02/22 11:56:00 EST, Route to Pharmacy Electronically, [facility]/pharmacy #[id number], Partial fill upon patient requestif the prescription is for a schedule II opioid kraig... Start Date: 09/02/22 Stop Date: 03/01/23 Status: Ordered hydrochlorothiazide-triamterene 25 mg-37.5 mg oral capsule 1 capsule, By Mouth, Daily, # 90 capsule, 1 Refills, Maintenance, 09/02/22 11:55:00 EST, [facility]/pharmacy #[id number], 0, 1 capsule By Mouth Daily, 161, cm, 08/30/22 14:54:00 EST, Height, 88.9, kg, 08/30/22 14:54:00 EST, Dry Weight Start Date: 09/02/22 Status: Ordered levothyroxine 0.05 mg oral tablet See Instructions, TAKE 1 TABLET DAILY, TAKE 2 TABLETS ON MONDAY, # 102 tablet, 3 Refills, 10/11/21 11:14:00 EDT, [facility], 161.5, cm, 10/11/21 10:53:00 EDT, Height Start Date: 10/11/21 Status: Ordered loratadine 10 mg oral tablet 1, tablet, By Mouth, Daily, # 90 tablet, Refills 1, Route to Pharmacy Electronically, [facility], 161.5, cm, 08/16/21 14:16:00 EST, Height Start Date: 09/03/21 Status: Ordered LORazepam 0.5 mg oral tablet 1 tablet = 0.5 mg, By Mouth, Daily at bedtime, for 30 days, # 30 tablet, 2 Refills, Acute 10/17/22 8:19:00 EDT, 07/19/22 8:19:00 EST, [facility], 161.3, cm, 07/15/22 9:49:00 EST, Height, 88, kg, 02/02/22 13:19:00 EDT, Dry Weight Start Date: 07/19/22 Stop Date: 10/17/22 Status: Ordered losartan 50 mg oral tablet 1 tablet, By Mouth, Daily, # 90 tablet, 3 Refills, [facility], 161.5, cm, 11/11/21 12:28:00 EDT, Height Start Date: 01/19/22 Status: Ordered Magnesium Magnesium, 0 Refills, Maintenance, 02/02/22 13:23:00 EDT Start Date: 02/02/22 Status: Ordered Multivitamin Daily, 0 Refills, Maintenance, 02/21/20 10:55:00 EDT Start Date: 02/21/20 Status: Ordered [place]-3 oral capsule See Instructions, one daily, 0 [...] Start Date: 02/02/22 Status: Ordered Vitamin D 18774 iu oral capsule 50,000 International_Units, By Mouth, [...] Personnel Name: Dionicio ANTON, Lucy Yanez Position: [facility] PCO Associate Professional Member Role: PCP Address: Address: [address] [place] [address]- Care Team Related Persons Name: ALBA TATE Address: [address] [place] [address]
--- OUTSIDE RECORDS SUMMARY | 2023-11-15 15:38 | XMS_ITS | Continuity of Care Document ---
Author Organization [facility] José Luis Lalit lt Address [address] [place] [address]- Care Team Providers Care General Inspector Name Role Phone Dionicio ANTON, Lucy Yanez Primary Care Physician [phone] Encounter [facility] [place] Date(s): 09/01/21 - 10/01/21 [facility] Adult [address] [place] [address]- Allergies, Adverse Reactions, Alerts Substance Reaction Severity [...] tablet, Refills 1, Route to Pharmacy Electronically, [facility]27, 161.5, cm, 08/16/21 14:16:00 EST, Height Start Date: 09/03/21 Status: Ordered losartan 50 mg oral tablet 50 mg, 1, tablet, By Mouth, Daily, # 90 tablet, Refills 3, Tot. Refills 3, Maintenance, 12/30/20 11:48:00 EDT, Route to Pharmacy Electronically, [facility], 161.5, cm, 12/30/20 11:09:00 EDT, Height Start Date: 12/30/20 Status: Ordered Multivitamin Daily, 0 Refills, Maintenance, 02/21/20 10:55:00 EDT Start Date: 02/21/20 Status: Ordered Nexium 20 mg oral enteric coated capsule 1 capsule = 20 mg, By Mouth, Daily, # 90 capsule, 1 Refills, Maintenance, 09/13/21 9:37:00 EST, EC Capsule, [facility], Partial fill upon patient request if the prescription is fora schedule II opioid drug., 161.5, cm, 09/13/21 8:5... Start Date: 09/13/21 Status: Ordered Nexium Capsule See Instructions, 22 mg 1 every other day, Refills 0, Maintenance, 05/06/19 16:33:27 EDT, Instructions Replace Required Details Start Date: 05/06/19 Status: Ordered [place]-3 oral capsule See Instructions, one daily, 0 [...]
--- OUTSIDE RECORDS SUMMARY | 2023-11-15 15:38 | XMS_ITS | Continuity of Care Document ---
Author Organization [facility] José Luis Lalit lt Address [address] [place] [address]- Care Team Providers Care Dentures Lab Technician Name Role Phone Dionicio ANTON, Lucy Yanez Primary Care Physician Encounter [facility] Date(s): 11/07/22 - 12/07/22 [facility] Riccardo Ordonez Adult [address] [place] [address]- Allergies, Adverse Reactions, Alerts Substance Reaction Severity [...] tablet, 0 Refills, Maintenance, 10/31/22 11:47:00 EDT, [facility]ORE [address], 161, cm, 10/28/22 13:31:00 EDT, Height, 86.9, [...] capsule, 0 Refills, Maintenance, 12/01/22 16:17:00 EDT, [facility], 161, cm, 10/28/22 13:31:00 EDT, Height, 86.9, kg, 10/28/22 13:31:00 EDT, Dry Weight Start Date: 12/01/22 Status: Ordered glipiZIDE 10 mg oral tablet, extended release 1 tablet = 10 mg, By Mouth, Daily, # 90 tablet, 1 Refills, Maintenance, 12/02/22 14:40:00 EDT, [facility], Partial fill upon patient [...] tablet, 0 Refills, Maintenance, 12/01/22 16:17:00 EDT, [facility] STORE [address]3248, 161, cm, 10/28/22 13:31:00 EDT, Height, 86.9, kg, 10/28/22 13:31:00 EDT, Dry Weight Start Date: 12/01/22 Status: Ordered loratadine 10 mg oral tablet 1, tablet, By Mouth, Daily, # 90 tablet, Refills 1, Route to Pharmacy Electronically, [facility] STORE [address]9799, 161.5, cm, 08/16/21 14:16:00 EST, Height Start [...] 10:55:00 EDT Start Date: 02/21/20 Status: Ordered [place] [employer]-3 oral capsule See Instructions, one daily, 0 [...] Start Date: 02/02/22 Status: Ordered Vitamin D 32864 iu oral capsule 50,000 International_Units, By Mouth, [...] Professional Member Role: PCP Address: Address: [address] [place] [address]- Care Team Related Persons Name: ALBA TATE Address: home [address] [place] [address]
--- OUTSIDE RECORDS SUMMARY | 2023-11-15 15:38 | XMS_ITS | Continuity of Care Document ---
Author Organization [facility] José Luis Lalit lt Address [address] [place] [address]- Care Team Providers Care Director Experimental Medicine Name Role Phone Dionicio ANTON, Lucy Yanez Primary Care Physician [phone] [place] [facility] [place] - 01/31/21 [facility] José Luis Adult [address] [place] [address]- Allergies, Adverse Reactions, Alerts Substance Reaction Severity [...] 03/05/21 7:26:00 EDT, 01/04/21 7:26:00 EDT, [facility], 161.5, cm, 12/30/20 11:09:00 [...] tablet, 3 Refills, Maintenance, 12/30/20 11:45:00EDT, [facility], 161.5, cm, 12/30/20 11:09:00 EDT, Height Start Date: 12/30/20 Stop Date: 12/25/21 Status: Ordered Multivitamin Daily, 0 Refills, Maintenance, 02/21/20 10:55:00 EDT Start Date: 02/21/20 Status: Ordered Nexium Capsule See Instructions, 22 mg 1 every other day, Refills 0, Maintenance, 05/06/19 16:33:27 EDT, Instructions Replace Required Details Start Date: 05/06/19 Status: Ordered [place]-3 oral capsule See Instructions, one daily, 0 [...]
--- OUTSIDE RECORDS SUMMARY | 2023-11-15 15:38 | XMS_ITS | Continuity of Care Document ---
Author Organization [facility] Riccardo Ordonez Lalit lt Address [address] [place] [address]- Care Team Providers Care Dye Maker Name Role Phone Dionicio ANTON, Lucy Yanez Primary Care Physician [phone] Encounter [facility] Date(s): 04/14/22 - 05/14/22 [facility] Riccardo Ordonez Adult [address] [place] [address]- Allergies, Adverse Reactions, Alerts Substance Reaction Severity [...] tablet, Refills 1, Route to Pharmacy Electronically, [email or web address] 37893, 161.5, cm, 08/16/21 14:16:00 EST, Height Start [...] 10:55:00 EDT Start Date: 02/21/20 Status: Ordered [place]-3 oral capsule See Instructions, one daily, [...] Start Date: 02/02/22 Status: Ordered Vitamin D 15883 iu oral capsule 50,000 International_Units, By Mouth, [...] Personnel Name: Lucy Greenberg NP Address: Address: [address] [place] [id number]
--- OUTSIDE RECORDS SUMMARY | 2023-11-15 15:38 | XMS_ITS | Continuity of Care Document ---
Author Organization [facility] Address [address], [address] [place] [address]- Care Team Providers Care It Technical Architect Name Role Phone Dionicio ANTON, Lucy Yanez Primary Care Physician [place] [facility] [place] 03/16/22 [facility] Leisa Mcghees [facility] [address], [address] [place] [address]- Allergies, Adverse Reactions, Alerts Substance Reaction Severity [...] tablet, Refills 1, Route to Pharmacy Electronically, [facility]ORE 65174, 161.5, cm, 08/16/21 14:16:00 EST, Height Start [...] EDT Start Date: 02/21/20 Status: Ordered [place]-3 oral capsule See Instructions, one daily, 0 [...] Start Date: 02/02/22 Status: Ordered Vitamin D 85985 iu oral capsule 50,000 International_Units, By Mouth, [...] Personnel Name: Lucy Greenberg NP Address: [address] [place], [place] [address]
--- OUTSIDE RECORDS SUMMARY | 2023-11-15 15:38 | XMS_ITS | Continuity of Care Document ---
Author Organization [facility] Lalit lt Address [address] [place] [address]- Care Team Providers Care Tile Machine Operator Name Role Phone Dionicio ANTON, Lucy Yanez Primary Care Physician [phone] [place] [facility] [place] 02/04/23 [facility] Adult [address] [place] [address]- Allergies, Adverse Reactions, Alerts Substance Reaction Severity [...] Refills, Maintenance, 10/31/22 11:47:00 EDT, [facility] STORE 32494, 161, cm, 10/28/22 13:31:00 EDT, Height, 86.9, [...] 3 Refills, Maintenance, 01/27/23 9:13:00 EDT, [facility], 161, cm, 10/28/22 13:31:00 EDT, Height, 86.9, kg, 10/28/22 13:31:00 EDT, DryWeight Start Date: 01/27/23 Status: Ordered glipiZIDE 5 mg oral tablet, extended release 3 tablet = 15 mg, By Mouth, Daily, # 90 tablet, 3 Refills, Maintenance, 01/27/23 15:23:00 EDT, [facility], Partial fill upon patient request if the prescription is for a schedule II opioid drug., 161, cm, 10/28/22 13:31:00 EDT,... Start Date: 01/27/23 Stop Date: 05/27/23 Status: Ordered hydrochlorothiazide-triamterene 25 mg-37.5 mg oral capsule 1 capsule, By Mouth, Daily, # 90 capsule, 1 Refills, Maintenance, 09/08/22 10:28:00 EST, [facility], 0, 1 capsule By Mouth Daily, 161, cm, 08/30/22 14:54:00 EST, Height, 88.9, kg, 08/30/22 14:54:00 EST, Dry Weight Start Date: 09/08/22 Status: Ordered loratadine 10 mg oral tablet 1, tablet, By Mouth, Daily, # 90 tablet, Refills 1, Route to Pharmacy Electronically, [facility] STORE 73069, 161.5, cm, 08/16/21 14:16:00 EST, Height Start Date: 09/03/21 Status: Ordered losartan 50 mg oral tablet 1 tablet, By Mouth, Daily, # 90 tablet, 3 Refills, 09/08/22 10:28:00 EST, [facility], 161, cm, 08/30/22 14:54:00 EST, Height, 88.9, kg, 08/30/22 14:54:00 EST, Dry Weight Start Date: 09/08/22 Status: Ordered Magnesium Magnesium, 0 Refills, Maintenance, 02/02/22 13:23:00 EDT Start Date: 02/02/22 Status: Ordered Multivitamin Daily, 0 Refills, Maintenance, 02/21/20 10:55:00 EDT Start Date: 02/21/20 Status: Ordered [place]-3 oral capsule See Instructions, one daily, 0 [...] 1 Refills, Maintenance, 01/27/23 4:55:00 EDT, [facility], 161, cm, 10/28/22 13:31:00 EDT, [...] Start Date: 02/02/22 Status: Ordered Vitamin D 19348 iu oral capsule 50,000 International_Units, By Mouth, [...] information Care Team Personnel Name: Dionicio ANTON, uLcy Yanez Position: S PCO Associate Professional Member Role: PCP Address: Address: [address] [place] [address]- Care Team Related Persons Name: ALBA TATE Address: home [address] [place] [address]
--- OUTSIDE RECORDS SUMMARY | 2023-11-15 15:38 | XMS_ITS | Continuity of Care Document ---
Author Organization [facility] José Luis Lalit lt Address [address] [place] [address]- Care Team Providers Care School Bus Technician Name Role Phone Dionicio ANTON, Lucy Yanez Primary Care Physician En[place] [facility] [place] Date(s): 09/01/21 - 10/01/21 [facility] Adult [address] [place] [address]- Allergies, Adverse Reactions, Alerts Substance Reaction Severity [...] tablet, Refills 1, Route to Pharmacy Electronically, [facility] 49273, 161.5, cm, 08/16/21 14:16:00 EST, Height Start Date: 09/03/21 Status: Ordered losartan 50 mg oral tablet 50 mg, 1, tablet, By Mouth, Daily, # 90 tablet, Refills 3, Tot. Refills 3, Maintenance, 12/30/20 11:48:00 EDT, Route to Pharmacy Electronically, [facility], 161.5, cm, 12/30/20 11:09:00 EDT, Height Start Date: 12/30/20 Status: Ordered Multivitamin Daily, 0 Refills, Maintenance, 02/21/20 10:55:00 EDT Start Date: 02/21/20 Status: Ordered Nexium 20 mg oral enteric coated capsule 1 capsule = 20 mg, By Mouth, Daily, # 90 capsule, 1 Refills, Maintenance, 09/13/21 9:37:00 EST, EC Capsule, [facility], Partial fill upon patient request if the prescription is fora schedule II opioid drug., 161.5, cm, 09/13/21 8:5... Start Date: 09/13/21 Status: Ordered Nexium Capsule See Instructions, 22 mg 1 every other day, Refills 0, Maintenance, 05/06/19 16:33:27 EDT, Instructions Replace Required Details Start Date: 05/06/19 Status: Ordered [place]-3 oral capsule See Instructions, one daily, 0 [...]
--- OUTSIDE RECORDS SUMMARY | 2023-11-15 15:38 | XMS_ITS | Continuity of Care Document ---
Author Organization [facility] Riccardo Ordonez Lalit lt Address [address] [place] [address]- Care Team Providers Care Ticketing Clerk Name Role Phone Dionicio ANTON, Lucy Yanez Primary Care Physician [place] [facility] [place] 04/15/22 - 05/15/22 [facility] Riccardo Ordonez Adult [address] [place] [address]- Allergies, Adverse Reactions, Alerts Substance Reaction Severity [...] tablet, Refills 1, Route to Pharmacy Electronically, [facility] 19350, 161.5, cm, 08/16/21 14:16:00 EST, Height Start [...] 10:55:00 EDT Start Date: 02/21/20 Status: Ordered [place]-3 oral capsule See Instructions, one daily, 0 [...] Start Date: 02/02/22 Status: Ordered Vitamin D 62355 iu oral capsule 50,000 International_Units, By Mouth, [...] Name: Dionicio ANTON, Lucy Yanez Address: Address: [address] [place] [address]-
--- OUTSIDE RECORDS SUMMARY | 2023-11-15 15:39 | XMS_ITS | Continuity of Care Document ---
Author Organization [facility] José Luis Lalit lt Address [address] [place] [address]- Care Team Providers Care Architect Manager Name Role Phone Dionicio ANTON, Lucy Yanez Primary Care Physician Encounter [facility] Date(s): 04/27/21 - 05/27/21 [facility] Riccardo Ordonez Adult [address] [place] [address]- Allergies, Adverse Reactions, Alerts Substance Reaction Severity [...] 03/08/21 9:39:00 EDT, Route to Pharmacy Electronically, [facility] #7111, 161.5, cm, 12/30/20 11:09:00 [...] Required Details Start Date: 05/06/19 Status: Ordered [place]-3 oral capsule See Instructions, one daily, 0 [...]
--- OUTSIDE RECORDS SUMMARY | 2023-11-15 15:39 | XMS_ITS | Continuity of Care Document ---
Author Organization [facility] José Luis Lalit lt Address [address] [place] [address]- Care Team Providers Care Subsea Engineer Name Role Phone Dionicio ANTON, Lucy Yaenz Primary Care Physician [place] [facility] [place] 09/09/21 - 10/09/21 [facility] José Luis Adult [address] [place] [address]- Allergies, Adverse Reactions, Alerts Substance Reaction Severity [...] tablet, Refills 1, Route to Pharmacy Electronically, [facility] 12277, 161.5, cm, 08/16/21 14:16:00 EST, Height Start Date: 09/03/21 Status: Ordered losartan 50 mg oral tablet 50 mg, 1, tablet, By Mouth, Daily, # 90 tablet, Refills 3, Tot. Refills 3, Maintenance, 12/30/20 11:48:00 EDT, Route to Pharmacy Electronically, [facility], 161.5, cm, 12/30/20 11:09:00 EDT, Height Start Date: 12/30/20 Status: Ordered Multivitamin Daily, 0 Refills, Maintenance, 02/21/20 10:55:00 EDT Start Date: 02/21/20 Status: Ordered Nexium 20 mg oral enteric coated capsule 1 capsule = 20 mg, By Mouth, Daily, # 90 capsule, 1 Refills, Maintenance, 09/13/21 9:37:00 EST, EC Capsule, [facility], Partial fill upon patient request if the prescription is fora schedule II opioid drug., 161.5, cm, 09/13/21 8:5... Start Date: 09/13/21 Status: Ordered Nexium Capsule See Instructions, 22 mg 1 every other day, Refills 0, Maintenance, 05/06/19 16:33:27 EDT, Instructions Replace Required Details Start Date: 05/06/19 Status: Ordered [place]-3 oral capsule See Instructions, one daily, 0 [...]
--- OUTSIDE RECORDS SUMMARY | 2023-11-15 15:39 | XMS_ITS | Continuity of Care Document ---
Author Organization [facility] José Luis Lalit lt Address [address] [place] [address]- Care Team Providers Care Va Underwriter Name Role Phone Dionicio ANTON, Lucy Yanez Primary Care Physician [place] [facility] [place] 02/14/23 - 03/16/23 [facility] Riccardo Ordonez Adult [address] [place] [address]- Allergies, Adverse Reactions, Alerts Substance Reaction Severity [...] tablet, 0 Refills, Maintenance, 10/31/22 11:47:00 EDT, [facility] STORE 12046, 161, cm, 10/28/22 13:31:00 EDT, Height, 86.9, [...] 02/16/23 6:50:00 EDT, [facility], Partial fill upon patient request if the prescription is for a schedule II opioid drug., 161, cm, 02/07/23 11:15:00 EDT,... Start Date: 02/16/23 Status: Ordered hydrochlorothiazide-triamterene 25 mg-37.5 mg oral capsule 1 capsule, By Mouth, Daily, # 90 capsule, 1 Refills, Maintenance, 09/08/22 10:28:00 EST, [facility], 0, 1 capsule By Mouth Daily, 161, cm, 08/30/22 14:54:00 EST, Height, 88.9, kg, 08/30/22 14:54:00 EST, Dry Weight Start Date: 09/08/22 Status: Ordered loratadine 10 mg oral tablet 1, tablet, By Mouth, Daily, # 90 tablet, Refills 1, Route to Pharmacy Electronically, [facility] STORE 33031, 161.5, cm, 08/16/21 14:16:00 EST, Height Start [...] Stop 09/02/23 11:33:00 EST, 03/06/23 11:33:00 EDT, [facility]/pharmacy #[id number], 161, cm, 02/22/23 11:03:00 EDT, [...] 10:55:00 EDT Start Date: 02/21/20 Status: Ordered [place]-3 oral capsule See Instructions, one daily, 0 [...] Start Date: 02/02/22 Status: Ordered Vitamin D 24927 iu oral capsule 50,000 International_Units, By Mouth, [...] Associate Professional Member Role: PCP Address: Address: [address] [place] [address]- Care Team Related Persons Name: ALBA TATE Address: [address] [place] [address]
--- OUTSIDE RECORDS SUMMARY | 2023-11-15 15:39 | XMS_ITS | Continuity of Care Document ---
Author Organization [facility] José Luis Lalit lt Address [address] [place] [address]- Care Team Providers Care Golf Ball Molder Name Role Phone Dionicio ANTON, Lucy Yanez Primary Care Physician [facility] Date(s): 12/08/22 - 01/07/23 [facility] Riccardo Ordonez Adult [address] [place] [address]- Allergies, Adverse Reactions, Alerts Substance Reaction Severity [...] tablet, 0 Refills, Maintenance, 10/31/22 11:47:00 EDT, [facility] STORE 49478, 161, cm, 10/28/22 13:31:00 EDT, Height, 86.9, [...] capsule, 0 Refills, Maintenance, 12/01/22 16:17:00 EDT, [facility] STORE 05293, 161, cm, 10/28/22 13:31:00 EDT, Height, 86.9, kg, 10/28/22 13:31:00 EDT, Dry Weight Start Date: 12/01/22 Status: Ordered glipiZIDE 10 mg oral tablet, extended release 1 tablet = 10 mg, By Mouth, Daily, # 90 tablet, 1 Refills, Maintenance, 12/02/22 14:40:00 EDT, [facility], Partial [...] tablet, 0 Refills, Maintenance, 12/01/22 16:17:00 EDT, [facility] STORE 27799, 161, cm, 10/28/22 13:31:00 EDT, Height, 86.9, kg, 10/28/22 13:31:00 EDT, Dry Weight Start Date: 12/01/22 Status: Ordered loratadine 10 mg oral tablet 1, tablet, By Mouth, Daily, # 90 tablet, Refills 1, Route to Pharmacy Electronically, [facility] STORE 73728, 161.5, cm, 08/16/21 14:16:00 EST, Height Start [...] 10:55:00 EDT Start Date: 02/21/20 Status: Ordered [place]-3 oral capsule See Instructions, one daily, 0 [...] Start Date: 02/02/22 Status: Ordered Vitamin D 79030 iu oral capsule 50,000 International_Units, By Mouth, [...] Associate Professional Member Role: PCP Address: Address: [address] [place] [address]- Care Team Related Persons Name: ALBA TATE Address: [address] [place] [address]
--- OUTSIDE RECORDS SUMMARY | 2023-11-15 15:39 | XMS_ITS | Continuity of Care Document ---
Author Organization [facility] José Luis Lalit lt Address [address] [place] [address]- Care Team Providers Care Recharger Name Role Phone Dionicio ANTON, Lucy Yanez Primary Care Physician [phone] Encounter [facility] Date(s): 04/17/23 - 05/17/23 [facility] Riccardo Ordonez Adult [address] [place] [address]- Allergies, Adverse Reactions, Alerts Substance Reaction Severity [...] (oldterm) 1 04/19/23 Recor ded SARS-CoV-2 mRNA ([id number]) vax 2 04/19/23 Recorded influenza virus vaccine, inactivated 04/05/22 Boyd rded influenza virus vaccine, inactivated 04/28/21 Give n influenza virus vaccine, inactivated 04/22/20 Give n influenza virus vaccine, inactivated 04/09/19 Boyd rded influenza virus vaccine, inactivated 03/28/18 Boyd rded [id number] bivalent booster vax 04/02/22 Recorded SARS-CoV-2 (COVID-19) mRNA-1273 vaccine 11/25/21 R ecorded SARS-CoV-2 (COVID-19) mRNA BNT-162b2 vac 04/22/21 Recorded SARS-CoV-2 (COVID-19) mRNA BNT-162b2 vac 09/09/20 Given SARS-CoV-2 (COVID-19) mRNA BNT-162b2 vac 08/19/20 Recorded zoster vaccine, inactivated 04/06/19 Recorded 1Result Comment: [facility] [place] 2Result Comment: [facility] [place] Medications Accu-Chek Paradise Glucose Meter See Instructions, [...] tablet, 1 Refills, Maintenance, 04/09/23 17:21:00 EDT, [facility], 161, cm, 02/22/23 11:03:00 EDT, Height, 86.9, kg, 10/28/22 13:31:00 EDT, Dry Weight Start Date: 04/09/23 Status: Ordered esomeprazole 20 mg oral enteric coated capsule 1 capsule, By Mouth, Daily, # 90 capsule, 3 Refills, Maintenance, 01/27/23 9:13:00 EDT, [facility], 161, cm, 10/28/22 [...] capsule, 1 Refills, Maintenance, 04/06/23 8:40:00 EDT, [facility], 90, TAKE 1 [...] Start Date: 12/27/19 Status: Ordered Vitamin D 46599 iu oral capsule 50,000 International_Units, By Mouth, [...] Associate Professional Member Role: PCP Address: Address: [address] [place] [address]- Care Team Related Persons Name: ALBA TATE Address: [facility] [address] [place] [address]
--- OUTSIDE RECORDS SUMMARY | 2023-11-15 15:39 | XMS_ITS | Continuity of Care Document ---
Author Organization [facility] José Luis Lalit lt Address [address] [place] [address]- Care Team Providers Care Buncher Hand Name Role Phone Dionicio ANTON, Lucy Yanez Primary Care Physician En[place] [facility] [place] Date(s): 01/07/20 - 01/14/20 [facility] Adult [address] [place] [address] Encounter Diagnosis Type II diabetes mellitus(Discharge Diagnosis) - 01/07/20 Community acquired pneumonia(Discharge Diagnosis) - 01/07/20 Hypomagnesemia(Discharge Diagnosis) - 01/07/20 Hypothyroidism(Discharge Diagnosis) - 01/07/20 Attending Physician: Lucy Greenberg NP Allergies, Adverse Reactions, Alerts Substance Reaction Severity Status Latex rash Active ALVARO inhibitors muscle pain Active Medications Ativan 0.5 mg oral tablet 1 tablet = 0.5 mg, By Mouth, Daily, PRN for anxiety, for 30 days, # 30 tablet, 2 Refills, Acute 04/13/20 11:45:00 EDT, 01/14/20 11:45:00 EDT, Tablet, [facility], 161.5, cm, 01/07/20 15:02:00 EDT, Height Start Date: 01/14/20 Stop Date: 04/13/20 Status: Ordered Claritin 10 mg oral tablet [...] tablet, 0 Refills, Maintenance, 01/07/20 15:36:00 EDT, [id number], 161.5, cm, 01/07/20 15:02:00 EDT, Height Start Date: 01/07/20 Stop Date: 02/25/20 Status: Ordered losartan 50 mg oral tablet [...] Required Details Start Date: 05/06/19 Status: Ordered [place]-3 oral capsule See Instructions, one daily, 0 [...] Informant Type II diabetes mellitus Discharge Diagnosis 01/07/20 Community acquired pneumonia Discharge Diagnosis 01/07/20 Hypomagnesemia Discharge Diagnosis 01/07/20 Hypothyroidism Discharge Diagnosis 01/07/20 Vital Signs Most recent to oldest [Reference Range]: 1 Height 161.5 cm (01/07/20 3:02 PM) Social History Social History Type Response Smoking Status Former smoker, quit more than 30 days ago entered on: 05/16/19 Sex
--- OUTSIDE RECORDS SUMMARY | 2023-11-15 15:39 | XMS_ITS | Continuity of Care Document ---
Author Organization [facility] Address [address] [place] [address]- Care Team Providers Care Making Machine Operator Name Role Phone Dionicio ANTON, Lucy Yanez Primary Care Physician [place] [facility] [place] 07/29/22 - 10/30/22 [facility] [address] [place] [address] Discharge Disposition: A-D/C Home Attending Physician: Kris Noe DO Admitting Physician: Kris Noe DO Referring Physician: Tri Raymond MD Allergies, Adverse Reactions, Alerts Substance Reaction [...] Daily, # 90 tablet, 1 Refills, Maintenance, 10/29/22 15:24:00 EDT, Tablet, [facility], Partial fill upon patient request if the prescription is for aschedule II opioid drug., 161, cm, 10/28/22 13:31:0... Start Date: 10/29/22 Status: Ordered Collagen 0 Refills, Maintenance, 02/02/22 [...] 09/08/22 Status: Ordered glipiZIDE 5 mg oral tablet, extended release 3 tablet = 15 mg, By Mouth, Daily, # 90 tablet, 3 Refills, Maintenance, 10/28/22 14:39:00 EDT, [facility], Partial fill upon patient request if the prescription is for a schedule II opioid drug., 161, cm, 04/14/23 13:31:00 EDT,... Start Date: 10/28/22 Stop Date: 02/25/23 Status: Ordered hydrochlorothiazide-triamterene 25 mg-37.5 mg oral [...] Refills 1, Route to Pharmacy Electronically, [facility] STORE 01481, 161.5, cm, 08/16/21 14:16:00 EST, Height Start [...] EDT Start Date: 02/21/20 Status: Ordered [place]-3 oral capsule See Instructions, one daily, 0 [...] tablet, 1 Refills, Maintenance, 09/08/22 10:29:00 EST, [facility], [...] Start Date: 02/02/22 Status: Ordered Vitamin D 94127 iu oral capsule 50,000 International_Units, By Mouth, [...] Most recent to oldest [Reference Range]: 1 2 Height 161 cm (10/28/22 1:31 PM) 161 cm (08/30/22 2:54 PM) Weight 86.9 kg (10/28/22 1:31 PM) 88.9 kg (08/30/22 2:54 PM) Oxygen Saturation [94-100 %] 99 % (10/28/22 1:31 PM) 99 % (08/30/22 2:54 PM) Pulse Rate [55-90 bpm] 97 bpm *H* (10/28/22 1:31 PM) 97 bpm *H* (08/30/22 2:54 PM) Body Mass Index [18.5-24.99 kg/m2] 33.52 kg/m2 *>HHI* (10/28/22 1:31 PM) 34.3 kg/m2 *>HHI* (08/30/22 2:54 PM) Blood Pressure [90-138/55-84 mm Hg] 156/ 73mm Hg *H* (10/28/22 1:31 PM) 163/90mm Hg *H* (08/30/22 2:54 PM) Temperature [96.8-100.4 DegF] 98.1 DegF (10/28/22 1:31 PM) 97.1 DegF (08/30/22 2:54 PM) Mode of Delivery (Oxygen) Room air (08/30/22 2:54 PM) Blood pressure sites Arm, left (10/28/22 1:31 PM) Arm, left (08/30/22 2:54 PM) Temperature Route Oral (10/28/22 1:31 PM) Temporal (08/30/22 2:54 PM) Dry Weight 86.9 kg (10/28/22 1:31 PM) 88.9 kg (08/30/22 2:54 PM) Weight Obtained Via Standing scale (10/28/22 1:31 PM) Standing scale (08/30/22 2:54 PM) Dry Weight Obtained Via Standing scale (10/28/22 1:31 PM) Standing scale (08/30/22 2:54 PM) Social History Social History Type Response Smoking Status Former smoker, quit more than 30 days ago entered on: 05/16/19 Sex Patient Care team information Care Team Personnel Name: Dionicio ANTON, Lucy Yanez Position: S PCO Associate Professional Member Role: PCP Address: Address: [address] [place] [address]- Care Team Related Persons Name: ALBA TATE Address: home [address] [place] [address]
--- OUTSIDE RECORDS SUMMARY | 2023-11-15 15:39 | XMS_ITS | Continuity of Care Document ---
Author Organization [facility] Riccardo Ordonez Lalit lt Address [address] [place] [address]- Care Team Providers Care White Shoe Examiner Name Role Phone Dionicio ANTON, Lucy Yanez Primary Care Physician En[place] [facility] [place] Date(s): 03/18/22 - 04/17/22 [facility] Riccardo Ordonez Adult [address] [place] [address]- Allergies, Adverse Reactions, Alerts Substance Reaction Severity [...] tablet, Refills 1, Route to Pharmacy Electronically, [facility] ST[facility] 13810, 161.5, cm, 08/16/21 14:16:00 EST, Height Start [...] 10:55:00 EDT Start Date: 02/21/20 Status: Ordered [place]-3 oral capsule See Instructions, one daily, 0 [...] Start Date: 02/02/22 Status: Ordered Vitamin D 84151 iu oral capsule 50,000 International_Units, By Mouth, [...] Name: Dionicio ANTON, Lucy Yanez Address: Address: [address] [place] [id number]
--- OUTSIDE RECORDS SUMMARY | 2023-11-15 15:39 | XMS_ITS | Continuity of Care Document ---
Author Organization [facility] Address [address] [place] [address]- Care Team Providers Care Biology Professor Name Role Phone Dionicio ANTON, Lucy Yanez Primary Care Physician Encounter [facility] [place] Date(s): 02/22/23 - 03/24/23 [facility] [address] [place] [address]- Attending Physician: Damián Turcios Admitting Physician: Admtr, Damián Referring Physician: Admtr, [...] tablet, 0 Refills, Maintenance, 10/31/22 11:47:00 EDT, [facility] 61092, 161, cm, 10/28/22 13:31:00 EDT, Height, 86.9, [...] tablet, Refills 1, Route to Pharmacy Electronically, [facility] ST[facility] 00728, 161.5, cm, 08/16/21 14:16:00 EST, Height Start [...] Stop 09/02/23 11:33:00 EST, 03/06/23 11:33:00 EDT, [facility]/pharmacy #[id number], 161, cm, 02/22/23 11:03:00 EDT, [...] 10:55:00 EDT Start Date: 02/21/20 Status: Ordered [place]-3 oral capsule See Instructions, one daily, 0 [...] Start Date: 02/02/22 Status: Ordered Vitamin D 62313 iu oral capsule 50,000 International_Units, By Mouth, [...] Professional Member Role: PCP Address: Address: [address] [place] [address]- Care Team Related Persons Name: ALBA TATE Address: home [address] [place] [address]
--- OUTSIDE RECORDS SUMMARY | 2023-11-15 15:39 | XMS_ITS | Continuity of Care Document ---
Author Organization [facility] Riccardo Ordonez Lalit lt Address [address] [place] [address]- Care Team Providers Care Transportation Aide Name Role Phone Dionciio ANTON, Lucy Yanez Primary Care Physician [phone] Encounter [facility] [place] Date(s): 02/15/23 - 03/17/23 [facility] Riccardo Ordonez Adult [address] [place] [address]- Allergies, Adverse Reactions, Alerts Substance Reaction Severity [...] tablet, 0 Refills, Maintenance, 10/31/22 11:47:00 EDT, [facility] 12324, 161, cm, 10/28/22 13:31:00 EDT, Height, 86.9, [...] capsule, 3 Refills, Maintenance, 01/27/23 9:13:00 EDT, [facility], 161, cm, 10/28/22 13:31:00 EDT, Height, 86.9, kg, 10/28/22 13:31:00 EDT, DryWeight Start Date: 01/27/23 Status: Ordered GlipiZIDE XL 10 mg oral tablet, extended release 2 tablet = 20 mg, By Mouth, Daily, # 180 tablet, 1 Refills, Maintenance, 02/16/23 6:50:00 EDT, [facility], Partial fill upon patient request if the prescription is for a schedule II opioid drug., 161, cm, 02/07/23 11:15:00 EDT,... Start Date: 02/16/23 Status: Ordered hydrochlorothiazide-triamterene 25 mg-37.5 mg oral capsule 1 capsule, By Mouth, Daily, # 90 capsule, 1 Refills, Maintenance, 09/08/22 10:28:00 EST, [facility], 0, 1 capsule By Mouth Daily, 161, cm, 08/30/22 14:54:00 EST, Height, 88.9, kg, 08/30/22 14:54:00 EST, Dry Weight Start Date: 09/08/22 Status: Ordered loratadine 10 mg oral tablet 1, tablet, By Mouth, Daily, # 90 tablet, Refills 1, Route to Pharmacy Electronically, [facility] 18257, 161.5, cm, 08/16/21 14:16:00 EST, Height Start Date: 09/03/21 Status: Ordered losartan 50 mg oral tablet 1 tablet, By Mouth, Daily, for 90 days, # 90 tablet, 1 Refills, Physician Stop 02/29/24 11:33:00 EDT, 09/02/23 11:33:00 EST, [facility], 161, cm, 02/22/23 11:03:00 EDT, Height,86.9, kg, 10/28/22 13:31:00 EDT, Dry Weight Start Date: 09/02/23 Stop Date: 02/29/24 Status: Ordered losartan 50 mg oral tablet 1 tablet, By Mouth, Daily, for 90 days, # 90 tablet, 1 Refills, Physician Stop 09/02/23 11:33:00 EST, 03/06/23 11:33:00 EDT, [facility]/pharmacy #[id number], 161, cm, 02/22/23 11:03:00 EDT, Height, [...] 10:55:00 EDT Start Date: 02/21/20 Status: Ordered Bolton-3 oral capsule See Instructions, one daily, 0 [...] Start Date: 02/02/22 Status: Ordered Vitamin D 90267 iu oral capsule 50,000 International_Units, By Mouth, [...] Associate Professional Member Role: PCP Address: Address: [address] [place] [address]- Care Team Related Persons Name: ALBA TATE Address: home [address] [place] [address]
--- OUTSIDE RECORDS SUMMARY | 2023-11-15 15:39 | XMS_ITS | Continuity of Care Document ---
Author Organization [facility] José Luis Lalit lt Address [address] [place] [address]- Care Team Providers Care Enamel Shader Name Role Phone Dionicio ANTON, Lucy Yanez Primary Care Physician Encounter [facility] [place] Date(s): 12/23/21 - 01/22/22 [facility] José Luis Adult [address] [place] [address]- Allergies, Adverse Reactions, Alerts Substance Reaction Severity [...] tablet, Refills 1, Route to Pharmacy Electronically, [facility] 08645, 161.5, cm, 08/16/21 14:16:00 EST, Height Start [...] Required Details Start Date: 05/06/19 Status: Ordered Eagle-3 oral capsule See Instructions, one daily, 0 [...]
--- OUTSIDE RECORDS SUMMARY | 2023-11-15 15:39 | XMS_ITS | Continuity of Care Document ---
Author Organization [facility] José Luis Lalit lt Address [address] [place] [address]- Care Team Providers Care Trailer Truck Driver Name Role Phone Dionicio ANTON, Lucy Yanez Primary Care Physician [place] [facility] [place] 12/31/21 - 01/30/22 [facility] Riccardo Ordonez Adult [address] [place] [address]- Allergies, Adverse Reactions, Alerts Substance Reaction Severity [...] tablet, Refills 1, Route to Pharmacy Electronically, [facility] 80252, 161.5, cm, 08/16/21 14:16:00 EST, Height Start [...] Required Details Start Date: 05/06/19 Status: Ordered Mission-3 oral capsule See Instructions, one daily, 0 [...]
--- OUTSIDE RECORDS SUMMARY | 2023-11-15 15:39 | XMS_ITS | Continuity of Care Document ---
Author Organization [facility] Address [address], [address] [place] [address]- Care Team Providers Care Carrot Tier Name Role Phone Dionicio ANTON, Lucy Yanez Primary Care Physician [phone] Encounter [facility] [place] Date(s): 04/14/22 - 05/14/22 [facility] Le[facility] Mcg[facility] [address] [place], [place] [address] Allergies, Adverse Reactions, Alerts Substance Reaction Severity Status cefuroxime Active beta blockers Active Macrobid 1, 2 Active Latex rash Active ALVARO inhibitors muscle pain Active metFORMIN Diarrhea Active 1Reports Macrobid causes inflammation in her lungs that presents as atypical pneumonia. 2inflammation of the lung Immunizations Given and Recorded Vaccine Date Status Refusal Reason influenza virus vaccine, inactivated 04/05/22 Body rded influenza virus vaccine, inactivated 04/28/21 Give [...] blood sugar twice daily. E11.9 DM II, 07/15/21 14:27:00 EDT, Supply Start Date: 01/28/21 Status: [...] tablet, Refills 1, Route to Pharmacy Electronically, [facility] 56799, 161.5, cm, 08/16/21 14:16:00 EST, Height Start [...] 10:55:00 EDT Start Date: 02/21/20 Status: Ordered [place]-3 oral capsule See Instructions, one daily, 0 [...] Start Date: 02/02/22 Status: Ordered Vitamin D 43066 iu oral capsule 50,000 International_Units, By Mouth, [...] Personnel Name: Lucy Greenberg NP Address: Address: [address] [place] [address]
--- OUTSIDE RECORDS SUMMARY | 2023-11-15 15:39 | XMS_ITS | Continuity of Care Document ---
Author Organization [facility] Riccardo Ordonez Lalit lt Address [address] [place] [address]- Care Team Providers Care Slip Laster Name Role Phone Dionicio ANTON, Lucy Yanez Primary Care Physician Encounter [facility] [place] Date(s): 06/19/23 - 07/19/23 [facility] Riccardo Ordonez Adult [address] [place] [address]- Allergies, Adverse Reactions, Alerts Substance Reaction Severity [...] (oldterm) 1 04/19/23 Recor ded SARS-CoV-2 mRNA (tshotge-[id number]-[id number]) vax 2 04/19/23 Recorded influenza virus vaccine, inactivated 04/05/22 Boyd rded influenza virus vaccine, inactivated 04/28/21 Give n influenza virus vaccine, inactivated 04/22/20 Give n influenza virus vaccine, inactivated 04/09/19 Boyd rded influenza virus vaccine, inactivated 03/28/18 Boyd rded [id number] bivalent booster vax 04/02/22 Recorded SARS-CoV-2 (COVID-19) mRNA-1273 vaccine 11/25/21 R ecorded SARS-CoV-2 (COVID-19) mRNA BNT-162b2 vac 04/22/21 Recorded SARS-CoV-2 (COVID-19) mRNA BNT-162b2 vac 09/09/20 Given SARS-CoV-2 (COVID-19) mRNA BNT-162b2 vac 08/19/20 Recorded zoster vaccine, inactivated 04/06/19 Recorded 1Result Comment: [facility] [place] 2Result Comment: [facility] [place] Medications Accu-Chek Paradise Glucose Meter See Instructions, [...] tablet, 1 Refills, Maintenance, 04/09/23 17:21:00 EDT, [facility], 161, cm, 02/22/23 11:03:00 EDT, Height, 86.9, kg, 10/28/22 13:31:00 EDT, Dry Weight Start Date: 04/09/23 Status: Ordered esomeprazole 20 mg oral enteric coated capsule 1 capsule, By Mouth, Daily, # 90 capsule, 3 Refills, Maintenance, 01/27/23 9:13:00 EDT, [facility], 161, cm, 10/28/22 13:31:00 EDT, Height, 86.9, kg, 10/28/22 13:31:00 EDT, DryWeight Start Date: 01/27/23 Status: Ordered GlipiZIDE XL 10 mg oral tablet, extended release 2 tablet = 20 mg, By Mouth, Daily, # 180 tablet, 3 Refills, Maintenance, 06/22/23 6:47:00 EST, [facility], Partial fill upon patient request if the prescription is for a schedule II opioid drug., 161, cm, 05/16/23 10:58:00 EDT,... Start Date: 06/22/23 Status: Ordered hydrochlorothiazide-triamterene 25 mg-37.5 mg oral capsule 1 capsule, By Mouth, Daily, # 90 capsule, 1 Refills, Maintenance, 04/06/23 8:40:00 EDT, [facility], 90, TAKE 1 [...] 09/02/23 11:33:00 EST, [facility], 161, cm, 02/22/23 11:03:00 EDT, Height,86.9, [...] Start Date: 12/27/19 Status: Ordered Vitamin D 28992 iu oral capsule 50,000 International_Units, By Mouth, [...] Professional Member Role: PCP Address: Address: [address] [place] [address]- Care Team Related Persons Name: ALBA TATE Address: home [address] [place] [address]
--- OUTSIDE RECORDS SUMMARY | 2023-11-15 15:39 | XMS_ITS | Continuity of Care Document ---
Author Organization [facility] Riccardo Ordonez Lalit lt Address [address] [place] [address]- Care Team Providers Care Health Assistant Name Role Phone Dionicio ANTON, Lucy Yanez Primary Care Physician [place] [facility] [place] Date(s): 05/03/22 - 06/02/22 [facility] Riccardo Ordonez Adult [address] [place] [address]- Allergies, Adverse Reactions, Alerts Substance Reaction Severity [...] tablet, Refills 1, Route to Pharmacy Electronically, [facility] 85790, 161.5, cm, 08/16/21 14:16:00 EST, Height Start [...] Start Date: 02/02/22 Status: Ordered Vitamin D 47292 iu oral capsule 50,000 International_Units, By Mouth, [...] Dionicio ANTON, Lucy Yanez Position: [facility] Associate Professional Member Role: PCP Address: Address: [address] [place] [address]- Care Team Related Persons Name: ALBA TATE
--- OUTSIDE RECORDS SUMMARY | 2023-11-15 15:39 | XMS_ITS | Continuity of Care Document ---
Author Organization [facility] José Luis Lalit lt Address [address] [place] [address]- Care Team Providers Care Equipment Sterilizer Name Role Phone Dionicio ANTON, Lucy Yanez Primary Care Physician [place] [facility] [place] Date(s): 06/16/20 - 07/16/20 [facility] Riccardo Ordonez Adult [address] [place] [address]- Allergies, Adverse Reactions, Alerts Substance Reaction Severity [...] 1 Refills, Maintenance, 07/15/20 12:03:00 EST, [facility], 161.5, cm, 07/01/20 9:54:00 EST, Height Start Date: 07/15/20 Status: Ordered losartan 50 mg oral tablet 50 mg, 1, tablet, By Mouth, Daily, # 90 tablet, Refills 3, Tot. Refills 3, Maintenance, 01/14/20 11:31:00 EDT, Route to Pharmacy Electronically, [facility], 161.5, cm, 01/07/20 15:02:00 EDT, Height Start Date: 01/14/20 Status: Ordered metFORMIN 500 mg oral tablet, extended release See Instructions, take 2 in the morning and one in the evening, # 90 tablet, 3 Refills, Maintenance, 07/02/20 12:22:00 EST, [facility]/pharmacy #[id number], 161.5, cm, 07/01/20 9:54:00 EST, Height Start Date: 07/02/20 Status: Ordered Multivitamin Daily, 0 Refills, Maintenance, 02/21/20 10:55:00 EDT Start Date: 02/21/20 Status: Ordered Nexium Capsule See Instructions, 22 mg 1 every other day, Refills 0, Maintenance, 05/06/19 16:33:27 EDT, Instructions Replace Required Details Start Date: 05/06/19 Status: Ordered Mobile-3 oral capsule See Instructions, one daily, 0 [...]
--- OUTSIDE RECORDS SUMMARY | 2023-11-15 15:39 | XMS_ITS | Continuity of Care Document ---
Author Organization [facility] Riccardo Ordonez Lalit lt Address [address] [place] [address]- Care Team Providers Care Harness And Bag Inspector Name Role Phone Dionicio ANTON, Lucy Yanez Primary Care Physician [place] [facility] [place] 02/10/20 - 03/11/20 [facility] Adult [address] [place] [address]- [facility] Allergies, Adverse Reactions, Alerts Substance Reaction [...] 3 Refills, Maintenance, 01/14/20 11:32:00 EDT, [facility], 161.5, cm, 01/07/20 15:02:00 EDT, Height Start Date: 01/14/20 Status: Ordered Multivitamin Daily, 0 Refills, Maintenance, 02/21/20 10:55:00 EDT Start Date: 02/21/20 Status: Ordered Nexium Capsule See Instructions, 22 mg 1 every other day, Refills 0, Maintenance, 05/06/19 16:33:27 EDT, Instructions Replace Required Details Start Date: 05/06/19 Status: Ordered Suffolk-3 oral capsule See Instructions, one daily, 0 [...]
--- OUTSIDE RECORDS SUMMARY | 2023-11-15 15:39 | XMS_ITS | Continuity of Care Document ---
Author Organization [facility] José Luis Lalit lt Address [address] [place] [address]- Care Team Providers Care Underground Electrician Name Role Phone Dionicio ANTON, Lucy Yanez Primary Care Physician Encounter [facility] Date(s): 04/14/23 - 05/14/23 [facility] Adult [address] [place] [address]- Allergies, Adverse Reactions, Alerts Substance Reaction Severity [...] (oldterm) 1 04/19/23 Recor ded SARS-CoV-2 mRNA (crowriw-hvmv-lgnjq) vax 2 04/19/23 Recorded influenza virus vaccine, inactivated 04/05/22 Boyd rded influenza virus vaccine, inactivated 04/28/21 Give n influenza virus vaccine, inactivated 04/22/20 Give n influenza virus vaccine, inactivated 04/09/19 Boyd rded influenza virus vaccine, inactivated 03/28/18 Boyd rded [id number] bivalent booster vax 04/02/22 Recorded SARS-CoV-2 (COVID-19) mRNA-1273 vaccine 11/25/21 R ecorded SARS-CoV-2 (COVID-19) mRNA BNT-162b2 vac 04/22/21 Recorded SARS-CoV-2 (COVID-19) mRNA BNT-162b2 vac 09/09/20 Given SARS-CoV-2 (COVID-19) mRNA BNT-162b2 vac 08/19/20 Recorded zoster vaccine, inactivated 04/06/19 Recorded 1Result Comment: [facility] [place] 2Result Comment: [facility] in [place] Medications Accu-Chek Paradise Glucose Meter See Instructions, [...] tablet, 1 Refills, Maintenance, 04/09/23 17:21:00 EDT, [facility], 161, cm, 02/22/23 [...] 3 Refills, Maintenance, 01/27/23 9:13:00 EDT, [facility], 161, cm, 10/28/22 13:31:00 EDT, Height, 86.9, kg, 10/28/22 13:31:00 EDT, DryWeight Start Date: 01/27/23 Status: Ordered GlipiZIDE XL 10 mg oral tablet, extended release 2 tablet = 20 mg, By Mouth, Daily, # 180 tablet, 1 Refills, Maintenance, 02/16/23 6:50:00 EDT, [facility], Partial fill upon patient request if the prescription is for a schedule II opioid drug., 161, cm, 02/07/23 11:15:00 EDT,... Start Date: 02/16/23 Status: Ordered hydrochlorothiazide-triamterene 25 mg-37.5 mg oral capsule 1 capsule, By Mouth, Daily, # 90 capsule, 1 Refills, Maintenance, 04/06/23 8:40:00 EDT, [facility], 90, TAKE 1 [...] tablet, Refills 1, Route to Pharmacy Electronically, [facility] 84213, 161.5, cm, 08/16/21 14:16:00 EST, Height Start Date: 09/03/21 Status: Ordered LORazepam 0.5 mg oral tablet 1 tablet = 0.5 mg, By Mouth, Daily at bedtime, for 30 days, # 12 tablet, 2 Refills, Acute 07/20/23 6:50:00 EST, 04/21/23 6:50:00 EDT, [facility], 161, cm, 02/22/23 11:03:00 EDT, Height, 86.9, kg, 10/28/22 13:31:00 EDT, Dry Weight Start Date: 04/21/23 Stop Date: 07/20/23 Status: Ordered losartan 50 mg oral tablet 1 tablet, By Mouth, Daily, for 90 days, # 90 tablet, 1 Refills, Physician Stop 02/29/24 11:33:00 EDT, 09/02/23 11:33:00 EST, [facility], 161, cm, 02/22/23 11:03:00 EDT, Height,86.9, kg, 10/28/22 13:31:00 EDT, Dry Weight Start Date: 09/02/23 Stop Date: 02/29/24 Status: Ordered losartan 50 mg oral tablet 1 tablet, By Mouth, Daily, for 90 days, # 90 tablet, 1 Refills, Physician Stop 09/02/23 11:33:00 EST, 03/06/23 11:33:00 EDT, [facility]/pharmacy #[id number], 161, cm, 02/22/23 11:03:00 EDT, [...] 10:55:00 EDT Start Date: 02/21/20 Status: Ordered [place]field-3 oral capsule See Instructions, one daily, 0 [...] Start Date: 02/02/22 Status: Ordered Vitamin D 86130 iu oral capsule 50,000 International_Units, By Mouth, [...] Associate Professional Member Role: PCP Address: Address: [address] [place] [address]- Care Team Related Persons Name: ALBA TATE Address: [address] [place] [address]
--- OUTSIDE RECORDS SUMMARY | 2023-11-15 15:39 | XMS_ITS | Continuity of Care Document ---
Author Organization [facility] José Luis Lalit lt Address [address] [place] [address]- Care Team Providers Care Pharmacologist Name Role Phone Dionicio ANTON, Lucy Yanez Primary Care Physician [phone] [place] [facility] [place]21 - 04/29/21 [facility] Adult [address] [place] [address]- Allergies, Adverse Reactions, Alerts Substance Reaction Severity [...] 9:39:00 EDT, Route to Pharmacy Electronically, [facility]/pharmacy #[id number], 161.5, cm, 12/30/20 11:09:00 EDT, Height [...] Required Details Start Date: 05/06/19 Status: Ordered [place]-3 oral capsule See Instructions, one daily, 0 [...]
--- OUTSIDE RECORDS SUMMARY | 2023-11-15 15:39 | XMS_ITS | Continuity of Care Document ---
Author Organization [facility] Address [address], [address] [place] [address]- Care Team Providers Care Java Systems Analyst Name Role Phone Dionicio ANTON, Lucy Yanez Primary Care Physician Encounter [facility] [place] Date(s): 12/17/21 - 01/16/22 [facility] Islemadan Mcghees [facility] [address], [address] [place], [place] [address] Allergies, Adverse Reactions, Alerts Substance Reaction [...] tablet, Refills 1, Route to Pharmacy Electronically, [facility] 25608, 161.5, cm, 08/16/21 14:16:00 EST, Height Start [...] Maintenance, 09/13/21 9:37:00 EST, EC Capsule, [facility], Partial fill upon patient request if the prescription is fora schedule II opioid drug., 161.5, cm, 09/13/21 8:5... Start Date: 09/13/21 Status: Ordered Nexium Capsule See Instructions, 22 mg 1 every other day, Refills 0, Maintenance, 05/06/19 16:33:27 EDT, Instructions Replace Required Details Start Date: 05/06/19 Status: Ordered Ellery-3 oral capsule See Instructions, one daily, 0 [...]
--- OUTSIDE RECORDS SUMMARY | 2023-11-15 15:39 | XMS_ITS | Continuity of Care Document ---
Author Organization [facility] Riccardo Ordonez Lalit lt Address [address] [place] [address]- Care Team Providers Care Senior Operations Analyst Name Role Phone Dionicio ANTON, Lucy Yanez Primary Care Physician Encounter [facility] Date(s): 09/06/22 - 10/06/22 [facility] Riccardo Ordonez Adult [address] [place] [address]- Allergies, Adverse Reactions, Alerts Substance Reaction Severity Status cefuroxime Active beta blockers Active Macrobid 1, 2 Active Bactrim Active ALVARO inhibitors muscle pain Active metFORMIN [...] 0 Refills, Maintenance, 09/03/22 19:13:00 EST, Tablet, [facility]/pharmacy #[id number], Partial fill upon patient [...] capsule, 0 Refills, Maintenance, 09/08/22 10:27:00 EST, [facility], 161, cm, 08/30/22 14:54:00 EST, Height, 88.9, kg, 08/30/22 14:54:00 EST, Dry Weight Start Date: 09/08/22 Status: Ordered glipiZIDE 5 mg oral tablet 15 mg, 3, tablet, By Mouth, Daily, for 90 days, # 270 tablet, Refills 1, Tot. Refills 1, Hard Stop 03/01/23 11:56:00 EDT, 09/02/22 11:56:00 EST, Route to Pharmacy Electronically, [facility]/pharmacy #[id number], Partial fill upon patient request if the prescriptio... Start Date: 09/02/22 Stop Date: 03/01/23 Status: Ordered glipiZIDE 5 mg oral tablet 15 mg, 3, tablet, By Mouth, Daily, # 270 tablet, Refills 1, Tot. Refills 1, Maintenance, 03/01/23 11:56:00 EDT, Route to Pharmacy Electronically, [facility], Partial fill upon patient request if the prescription is for a schedul... Start Date: 03/01/23 Stop Date: 08/28/23 Status: Ordered hydrochlorothiazide-triamterene 25 mg-37.5 mg oral capsule 1 capsule, By Mouth, Daily, # 90 capsule, 1 Refills, Maintenance, 09/08/22 10:28:00 EST, [facility], 0, 1 capsule By Mouth Daily, 161, cm, 08/30/22 14:54:00 EST, Height, 88.9, kg, 08/30/22 14:54:00 EST, Dry Weight Start Date: 09/08/22 Status: Ordered levothyroxine 0.05 mg oral tablet See Instructions, TAKE 1 TABLET DAILY, TAKE 2 TABLETS ON MONDAY, # 102 tablet, 0 Refills, 09/08/22 10:27:00 EST, [facility], 161, cm, 08/30/22 14:54:00 EST, Height, 88.9, kg, 08/30/22 14:54:00 EST, Dry Weight Start Date: 09/08/22 Status: Ordered loratadine 10 mg oral tablet 1, tablet, By Mouth, Daily, # 90 tablet, Refills 1, Route to Pharmacy Electronically, [facility] 61501, 161.5, cm, 08/16/21 14:16:00 EST, Height Start [...] 90 tablet, 3 Refills, 09/08/22 10:28:00 EST, [facility], 161, cm, 08/30/22 14:54:00 EST, Height, 88.9, kg, 08/30/22 14:54:00 EST, Dry Weight Start Date: 09/08/22 Status: Ordered Magnesium Magnesium, 0 Refills, Maintenance, 02/02/22 13:23:00 EDT Start Date: 02/02/22 Status: Ordered Multivitamin Daily, 0 Refills, Maintenance, 02/21/20 10:55:00 EDT Start Date: 02/21/20 Status: Ordered [place]-3 oral capsule See Instructions, one daily, 0 [...] tablet, 1 Refills, Maintenance, 09/08/22 10:29:00 EST, [facility], 161, cm, 08/30/22 14:54:00 [...] Start Date: 02/02/22 Status: Ordered Vitamin D 03282 iu oral capsule 50,000 International_Units, By Mouth, [...] Professional Member Role: PCP Address: Address: [address] [place] [address]- Care Team Related Persons Name: ALBA TATE Address: home [address] [place] [address]
--- OUTSIDE RECORDS SUMMARY | 2023-11-15 15:39 | XMS_ITS | Continuity of Care Document ---
Author Organization [facility] Riccardo Ordonez Lalit lt Address [address] [place] [address]- Care Team Providers Care Freight Shipping Agent Name Role Phone Dionicio ANTON, Lucy Yanze Primary Care Physician [phone] Encounter [facility] Date(s): 03/30/20 - 04/06/20 [facility] Adult [address] [place] [address]- [facility] Encounter Diagnosis Vaginal discharge(Discharge Diagnosis) - 03/30/20 Urinary tract infection symptoms(Discharge Diagnosis) - 03/30/20 Attending Physician: Not on Staff, Attending MD [...] 10:55:00 EDT Start Date: 02/21/20 Status: Ordered cefuroxime 250 mg oral tablet 1 tablet = 250 mg, By Mouth, 2 times a day, for 7 days, # 14 tablet, 0 Refills, Acute 04/09/20 8:48:00 EDT, 04/02/20 8:48:00 EDT, Tablet, [id number], 161.5, cm, 03/30/20 10:27:00 EDT, Height Start Date: 04/02/20 Stop Date: 04/09/20 Status: Ordered Claritin 10 mg oral tablet [...] Required Details Start Date: 05/06/19 Status: Ordered [place]-3 oral capsule See Instructions, one daily, 0 [...] Dates Health Status Cl inical Service Informant Vaginal discharge Discharge Diagnosis 03/30/20 Urinary tract infection symptoms Discharge Diagnosis 03/30/20 Vital Signs Most recent to oldest [Reference Range]: 1 2 Height 161.5 cm (03/30/20 9:40 AM) 161.5 cm (03/30/20 9:13 AM) Weight 84.2 kg (03/30/20 9:13 AM) Oxygen Saturation [94-100 %] 99 % (03/30/20 9:13 AM) Pulse Rate [55-90 bpm] 81 bpm (03/30/20 9:13 AM) Body Mass Index [18.5-24.99] 32.28 *>HHI* (03/30/20 9:13 AM) Blood Pressure [90-138/55-84 mm Hg] 138/ 68mm Hg (03/30/20 9:40 AM) 145/67mm Hg *H* (03/30/20 9:13 AM) Temperature [96.8-100.4 DegF] 98.2 DegF (03/30/20 9:13 AM) Blood pressure sites Arm, left (03/30/20 9:13 AM) Temperature Route Oral (03/30/20 9:13 AM) Weight Obtained Via Standing scale (03/30/20 9:13 AM) Social History Social History Type Response Smoking Status Former smoker, quit more than 30 days ago entered on: 05/16/19 Sex
--- OUTSIDE RECORDS SUMMARY | 2023-11-15 15:39 | XMS_ITS | Continuity of Care Document ---
Author Organization [facility] José Luis Lalit lt Address [address] [place] [address]- Care Team Providers Care Critical Care Cns Name Role Phone Dionicio ANTON, Lucy Yanez Primary Care Physician [phone] Encounter [facility] Date(s): 09/29/21 - 10/29/21 [facility] José Luis Adult [address] [place] [address]- Allergies, Adverse Reactions, Alerts Substance Reaction Severity [...] tablet, 3 Refills, 10/11/21 11:14:00 EDT, [facility], 161.5, cm, 10/11/21 10:53:00 EDT, Height Start Date: 10/11/21 Status: Ordered loratadine 10 mg oral tablet 1, tablet, By Mouth, Daily, # 90 tablet, Refills 1, Route to Pharmacy Electronically, [id number], 161.5, cm, 08/16/21 14:16:00 EST, Height Start Date: 09/03/21 Status: Ordered losartan 50 mg oral tablet 50 mg, 1, tablet, By Mouth, Daily, # 90 tablet, Refills 3, Tot. Refills 3, Maintenance, 12/30/20 11:48:00 EDT, Route to Pharmacy Electronically, [facility], 161.5, cm, 12/30/20 11:09:00 EDT, Height Start Date: 12/30/20 Status: Ordered Multivitamin Daily, 0 Refills, Maintenance, 02/21/20 10:55:00 EDT Start Date: 02/21/20 Status: Ordered Nexium 20 mg oral enteric coated capsule 1 capsule = 20 mg, By Mouth, Daily, # 90 capsule, 1 Refills, Maintenance, 09/13/21 9:37:00 EST, EC Capsule, [facility], Partial fill upon patient request if the prescription is fora schedule II opioid drug., 161.5, cm, 09/13/21 8:5... Start Date: 09/13/21 Status: Ordered Nexium Capsule See Instructions, 22 mg 1 every other day, Refills 0, Maintenance, 05/06/19 16:33:27 EDT, Instructions Replace Required Details Start Date: 05/06/19 Status: Ordered [place]-3 oral capsule See Instructions, one daily, [...]
--- OUTSIDE RECORDS SUMMARY | 2023-11-15 15:39 | XMS_ITS | Continuity of Care Document ---
Author Organization [facility] José Luis Lalit lt Address [address] [place] [address]- Care Team Providers Care Field Reporter Name Role Phone Dionicio ANTON, Lucy Yanez Primary Care Physician [facility]counter [facility] Date(s): 05/01/23 - 05/31/23 [facility] José Luis Adult [address] [place] [address]- Allergies, Adverse Reactions, Alerts Substance Reaction Severity [...] (oldterm) 1 04/19/23 Recor ded SARS-CoV-2 mRNA (qtlokvi-vjmu-hpgso) vax 2 04/19/23 Recorded influenza virus vaccine, inactivated 04/05/22 Boyd rded influenza virus vaccine, inactivated 04/28/21 Give n influenza virus vaccine, inactivated 04/22/20 Give n influenza virus vaccine, inactivated 04/09/19 Boyd rded influenza virus vaccine, inactivated 03/28/18 Boyd rded [id number] bivalent booster vax 04/02/22 Recorded SARS-CoV-2 (COVID-19) mRNA-1273 vaccine 11/25/21 R ecorded SARS-CoV-2 (COVID-19) mRNA BNT-162b2 vac 04/22/21 Recorded SARS-CoV-2 (COVID-19) mRNA BNT-162b2 vac 09/09/20 Given SARS-CoV-2 (COVID-19) mRNA BNT-162b2 vac 08/19/20 Recorded zoster vaccine, inactivated 04/06/19 Recorded 1Result Comment: [facility] [place] 2Result Comment: [facility] [place] Medications Accu-Chek Paradise Glucose Meter See Instructions, [...] Maintenance, 04/09/23 17:21:00 EDT, [facility], 161, cm, 02/22/23 11:03:00 EDT, Height, 86.9, kg, 10/28/22 13:31:00 EDT, Dry Weight Start Date: 04/09/23 Status: Ordered esomeprazole 20 mg oral enteric coated capsule 1 capsule, By Mouth, Daily, # 90 capsule, 3 Refills, Maintenance, 01/27/23 9:13:00 EDT, [facility], 161, cm, 10/28/22 13:31:00 EDT, Height, 86.9, kg, 10/28/22 13:31:00 EDT, DryWeight Start Date: 01/27/23 Status: Ordered GlipiZIDE XL 10 mg oral tablet, extended release 2 tablet = 20 mg, By Mouth, Daily, # 180 tablet, 1 Refills, Maintenance, 02/16/23 6:50:00 EDT, [facility], Partial fill upon patient request if the prescription is for a schedule II opioid drug., 161, cm, 02/07/23 11:15:00 EDT,... Start Date: 02/16/23 Status: Ordered hydrochlorothiazide-triamterene 25 mg-37.5 mg oral capsule 1 capsule, By Mouth, Daily, # 90 capsule, 1 Refills, Maintenance, 04/06/23 8:40:00 EDT, [facility], 90, TAKE 1 CAPSULE [...] Acute 07/20/23 6:50:00 EST, 04/21/23 6:50:00 EDT, [facility], 161, cm, 02/22/23 11:03:00 EDT, Height, 86.9, kg, 10/28/22 13:31:00 EDT, Dry Weight Start Date: 04/21/23 Stop Date: 07/20/23 Status: Ordered losartan 50 mg oral tablet 1 tablet, By Mouth, Daily, for 90 days, # 90 tablet, 1 Refills, Physician Stop 02/29/24 11:33:00 EDT, 09/02/23 11:33:00 EST, [facility], 161, cm, 02/22/23 11:03:00 EDT, [...] Start Date: 12/27/19 Status: Ordered Vitamin D 17901 iu oral capsule 50,000 International_Units, By Mouth, [...] Associate Professional Member Role: PCP Address: Address: [address] [place] [address]- Care Team Related Persons Name: ALBA TATE Address: home [address] [place] [address]
--- OUTSIDE RECORDS SUMMARY | 2023-11-15 15:39 | XMS_ITS | Continuity of Care Document ---
Author Organization [facility] Riccardo Ordonez Lalit lt Address [address] [place] [address]- Care Team Providers Care Powerhouse Electrician Name Role Phone Dionicio ANTON, Lucy Yanez Primary Care Physician [phone] Encounter [facility] Date(s): 09/29/23 - 10/29/23 [facility] Riccardo Ordonez Adult [address] [place] [address]- Allergies, Adverse Reactions, Alerts Substance Reaction Severity [...] (oldterm) 1 04/19/23 Recor ded SARS-CoV-2 mRNA (lqmnypw-xopg-mimqy) vax 2 04/19/23 Recorded influenza virus vaccine, inactivated 04/05/22 Boyd rded influenza virus vaccine, inactivated 04/28/21 Give n influenza virus vaccine, inactivated 04/22/20 Give n influenza virus vaccine, inactivated 04/09/19 Boyd rded influenza virus vaccine, inactivated 03/28/18 Boyd rded [id number] bivalent booster vax 04/02/22 Recorded SARS-CoV-2 (COVID-19) mRNA-1273 vaccine 11/25/21 R ecorded SARS-CoV-2 (COVID-19) mRNA BNT-162b2 vac 04/22/21 Recorded SARS-CoV-2 (COVID-19) mRNA BNT-162b2 vac 09/09/20 Given SARS-CoV-2 (COVID-19) mRNA BNT-162b2 vac 08/19/20 Recorded zoster vaccine, inactivated 04/06/19 Recorded 1Result Comment: [facility] [place] 2Result Comment: [facility] [place] Medications Accu-Chek [place] Glucose Meter See Instructions, [...] tablet, 1 Refills, Maintenance, 09/03/23 6:59:00 EST, [facility], 161, cm, 05/16/23 10:58:00 EDT, Height, 84.7, kg, 05/04/23 15:05:00 EDT, Dry Weight Start Date: 09/03/23 Status: Ordered esomeprazole 20 mg oral enteric coated capsule 1 capsule, By Mouth, Daily, # 90 capsule, 3 Refills, Maintenance, 01/27/23 9:13:00 EDT, [facility], 161, cm, 10/28/22 13:31:00 EDT, [...] Date: 10/11/23 Status: Ordered Freestyle Ortiz 2 [place] Freestyle Ortiz 2 [place], See Instructions, # 1 each, Refills 0, [...] capsule, 1 Refills, Maintenance, 09/05/23 6:39:00 EST, [facility], 90, TAKE 1 CAPSULE DAILY, 161, cm, 05/16/23 10:58:00 EDT, Height, 84.7, kg, 05/04/23 15:05:00 EDT, Dry Weight Start Date: 09/05/23 Status: Ordered Januvia 50 mg oral tablet 1 tablet = 50 mg, By Mouth, Daily, # 90 tablet, 2 Refills, Maintenance, 10/11/23 7:41:00 EDT, Tablet, [facility], Partial fill upon [...] Stop 02/29/24 11:33:00 EDT, 09/02/23 11:33:00 EST, [facility], 161, cm, 02/22/23 11:03:00 [...] 10:55:00 EDT Start Date: 02/21/20 Status: Ordered [place]-3 oral capsule 0 Refills, Maintenance, 09/13/23 15:32:00 [...] tablet, 1 Refills, Maintenance, 06/20/23 10:22:00 EST, [facility], 161, cm, 05/16/23 10:58:00 EDT, Height, 84.7, kg, 05/04/23 15:05:00 EDT, Dry Weight Start Date: 06/20/23 Status: Ordered timolol maleate 0.5% ophthalmic solution 1 drops, Eyes, Both, 2 times a day, # 10 mL, 0 Refills, Maintenance, 12/27/19 10:36:00 EDT, Solution Start Date: 12/27/19 Status: Ordered Vitamin D 13325 iu oral capsule 50,000 International_Units, By Mouth, [...] Team Personnel Name: Lucy Greenberg NP Position: [facility] Associate Professional Member Role: PCP Address: Address: [address] [facility] Adult [facility] [place] [address]- Care Team Related Persons Name: ALBA TATE Address: home [address] [place] [address]"
--- OUTSIDE RECORDS SUMMARY | 2023-11-15 15:39 | XMS_ITS | Continuity of Care Document ---
Author Organization [facility] Riccardo Ordonez Lalit lt Address [address] [place] [address]- Care Team Providers Care Mold Checker Name Role Phone Dionicio ANTON, Lucy Yanez Primary Care Physician [facility]counter [facility] Date(s): 10/05/23 - 11/04/23 [facility] Riccardo Ordonez Adult [address] [place] [address]- Allergies, Adverse Reactions, Alerts Substance Reaction Severity [...] (oldterm) 1 04/19/23 Recor ded SARS-CoV-2 mRNA (jhpejrk-rfbh-ymwyy) vax 2 04/19/23 Recorded influenza virus vaccine, inactivated 04/05/22 Boyd rded influenza virus vaccine, inactivated 04/28/21 Give n influenza virus vaccine, inactivated 04/22/20 Give n influenza virus vaccine, inactivated 04/09/19 Boyd rded influenza virus vaccine, inactivated 03/28/18 Boyd rded [id number] bivalent booster vax 04/02/22 Recorded SARS-CoV-2 (COVID-19) mRNA-1273 vaccine 11/25/21 R ecorded SARS-CoV-2 (COVID-19) mRNA BNT-162b2 vac 04/22/21 Recorded SARS-CoV-2 (COVID-19) mRNA BNT-162b2 vac 09/09/20 Given SARS-CoV-2 (COVID-19) mRNA BNT-162b2 vac 08/19/20 Recorded zoster vaccine, inactivated 04/06/19 Recorded 1Result Comment: [facility] in [place] 2Result Comment: [facility] [place] Medications Accu-Chek [place] Glucose Meter See Instructions, [...] Refills, Maintenance, 09/03/23 6:59:00 EST, [facility], 161, cm, 05/16/23 10:58:00 EDT, Height, 84.7, kg, 05/04/23 15:05:00 EDT, Dry Weight Start Date: 09/03/23 Status: Ordered esomeprazole 20 mg oral enteric coated capsule 1 capsule, By Mouth, Daily, # 90 capsule, 3 Refills, Maintenance, 01/27/23 9:13:00 EDT, [facility], 161, cm, 10/28/22 13:31:00 [...] Date: 10/11/23 Status: Ordered Freestyle Ortiz 2 [place] Freestyle Ortiz 2 [place], See Instructions, # 1 each, Refills [...] Refills, Maintenance, 09/05/23 6:39:00 EST, [facility], 90, TAKE 1 CAPSULE DAILY, 161, cm, 05/16/23 10:58:00 EDT, Height, 84.7, kg, 05/04/23 15:05:00 EDT, Dry Weight Start Date: 09/05/23 Status: Ordered Januvia 50 mg oral tablet 1 tablet = 50 mg, By Mouth, Daily, # 90 tablet, 2 Refills, Maintenance, 10/11/23 7:41:00 EDT, Tablet, [facility], Partial fill upon [...] 10:55:00 EDT Start Date: 02/21/20 Status: Ordered [place]-3 oral capsule 0 Refills, Maintenance, 09/13/23 15:32:00 [...] tablet, 1 Refills, Maintenance, 09/05/23 23:33:00 EST, [facility], 161, cm, 05/16/23 10:58:00 EDT, Height, 84.7, kg, 05/04/23 15:05:00 EDT, Dry Weight Start Date: 09/05/23 Status: Ordered Synthroid 0.05 mg oral tablet 1 tablet, By Mouth, Daily, TAKE 2TABLETS ON MONDAY, # 102 tablet, 1 Refills, Maintenance, 06/20/23 10:22:00 EST, [facility], 161, cm, 05/16/23 10:58:00 EDT, Height, 84.7, kg, 05/04/23 15:05:00 EDT, Dry Weight Start Date: 06/20/23 Status: Ordered timolol maleate 0.5% ophthalmic solution 1 drops, Eyes, Both, 2 times a day, # 10 mL, 0 Refills, Maintenance, 12/27/19 10:36:00 EDT, Solution Start Date: 12/27/19 Status: Ordered Vitamin D 42576 iu oral capsule 50,000 International_Units, By Mouth, [...] Team Personnel Name: Lucy Greenberg NP Position: [facility] Associate Professional Member Role: PCP Address: Address: [address] [facility] Adult [facility] [place] [address]- Care Team Related Persons Name: ALBA TATE Address: home [address] [place] [address]
--- OUTSIDE RECORDS SUMMARY | 2023-11-15 15:39 | XMS_ITS | Continuity of Care Document ---
Author Organization [facility] José Luis Lalit lt Address [address] [place] [address]- Care Team Providers Care Shuttle Van Driver Name Role Phone Dionicio ANTON, Lucy Yanez Primary Care Physician [phone] Encounter [facility] Date(s): 03/16/23 - 04/15/23 [facility] Adult [address] [place] [address]- Allergies, Adverse Reactions, Alerts Substance Reaction Severity [...] Refills, Maintenance, 04/09/23 17:21:00 EDT, [facility], 161, cm, 02/22/23 11:03:00 EDT, Height, 86.9, kg, 10/28/22 13:31:00 EDT, Dry Weight Start Date: 04/09/23 Status: Ordered Cipro 250 mg oral tablet 1 tablet = 250 mg, By Mouth, Every 12 hours, for 5 days, # 10 tablet, 0 Refills, Acute 04/19/23 11:36:00 EDT, 04/14/23 11:36:00 EDT, [facility]pharm[facility] #[id number], Partial fill [...] tablet, 1 Refills, Maintenance, 02/16/23 6:50:00 EDT, [facility], Partial fill upon patient request if the prescription is for a schedule II opioid drug., 161, cm, 02/07/23 11:15:00 EDT,... Start Date: 02/16/23 Status: Ordered hydrochlorothiazide-triamterene 25 mg-37.5 mg oral capsule 1 capsule, By Mouth, Daily, # 90 capsule, 1 Refills, Maintenance, 04/06/23 8:40:00 EDT, [facility], 90, TAKE 1 CAPSULE DAILY, 161, cm, 02/22/23 11:03:00 EDT, Height, 86.9, kg, 10/28/22 13:31:00 EDT, Dry Weight Start Date: 04/06/23 Status: Ordered loratadine 10 mg oral tablet 1, tablet, By Mouth, Daily, # 90 tablet, Refills 1, Route to Pharmacy Electronically, [id number], 161.5, cm, 08/16/21 14:16:00 EST, Height Start [...] Stop 09/02/23 11:33:00 EST, 03/06/23 11:33:00 EDT, [facility]/pharmacy #[id number], 161, cm, 02/22/23 11:03:00 EDT, [...] 10:55:00 EDT Start Date: 02/21/20 Status: Ordered [place]-3 oral capsule See Instructions, one daily, 0 [...] Start Date: 02/02/22 Status: Ordered Vitamin D 46093 iu oral capsule 50,000 International_Units, By Mouth, [...] Professional Member Role: PCP Address: Address: [address] [place] [address]- Care Team Related Persons Name: ALBA TATE Address: [address] [place] [place] [address]
--- OUTSIDE RECORDS SUMMARY | 2023-11-15 15:39 | XMS_ITS | Continuity of Care Document ---
Author Organization [facility] Riccardo Ordonez Lalit lt Address [address] [place] [address]- Care Team Providers Care Center Director Name Role Phone Dionicio ANTON, Lucy Yanez Primary Care Physician [phone] Encounter [facility] Date(s): 08/28/23 - 09/27/23 [facility] Riccardo Ordonez Adult [address] [place] [address]- Allergies, Adverse Reactions, Alerts Substance Reaction Severity [...] (oldterm) 1 04/19/23 Recor ded SARS-CoV-2 mRNA (rjudwps-xabz-ickdn) vax 2 04/19/23 Recorded influenza virus vaccine, inactivated 04/05/22 Boyd rded influenza virus vaccine, inactivated 04/28/21 Give n influenza virus vaccine, inactivated 04/22/20 Give n influenza virus vaccine, inactivated 04/09/19 Boyd rded influenza virus vaccine, inactivated 03/28/18 Boyd rded [id number] bivalent booster vax 04/02/22 Recorded SARS-CoV-2 (COVID-19) mRNA-1273 vaccine 11/25/21 R ecorded SARS-CoV-2 (COVID-19) mRNA BNT-162b2 vac 04/22/21 Recorded SARS-CoV-2 (COVID-19) mRNA BNT-162b2 vac 09/09/20 Given SARS-CoV-2 (COVID-19) mRNA BNT-162b2 vac 08/19/20 Recorded zoster vaccine, inactivated 04/06/19 Recorded 1Result Comment: [facility] [place] 2Result Comment: [facility] [place] Medications Accu-Chek [place] Glucose Meter See Instructions, [...] tablet, 0 Refills, Maintenance, 09/27/23 6:40:00 EDT, [facility]/pharmacy #[id number], Partial fill upon patient request if the [...] capsule, 3 Refills, Maintenance, 01/27/23 9:13:00 EDT, [facility], 161, cm, 10/28/22 13:31:00 EDT, Height, [...] Date: 09/19/23 Status: Ordered Freestyle Ortiz 2 [place] Freestyle Ortiz 2 [place], See Instructions, # 1 each, Refills 0, [...] 0 Refills, Maintenance, 09/27/23 12:50:00 EDT, Tablet, [facility]/pharmacy #[id number], Partial fill upon patient request [...] Stop 02/29/24 11:33:00 EDT, 09/02/23 11:33:00 EST, [facility], 161, cm, 02/22/23 11:03:00 EDT, Height,86.9, [...] 10:55:00 EDT Start Date: 02/21/20 Status: Ordered [place]-3 oral capsule 0 Refills, Maintenance, 09/13/23 15:32:00 [...] Maintenance, 06/20/23 10:22:00 EST, [facility], 161, cm, 05/16/23 10:58:00 EDT, Height, 84.7, kg, 05/04/23 15:05:00 EDT, Dry Weight Start Date: 06/20/23 Status: Ordered timolol maleate 0.5% ophthalmic solution 1 drops, Eyes, Both, 2 times a day, # 10 mL, 0 Refills, Maintenance, 12/27/19 10:36:00 EDT, Solution Start Date: 12/27/19 Status: Ordered Vitamin D 13003 iu oral capsule 50,000 International_Units, By Mouth, [...] Professional Member Role: PCP Address: Address: [address] [place] [address]- Care Team Related Persons Name: ALBA TATE Address: [address] [place] [address]
--- OUTSIDE RECORDS SUMMARY | 2023-11-15 15:41 | XMS_ITS | Continuity of Care Document ---
Author Organization [facility] José Luis Lalit lt Address [address] [place] [address]- Care Team Providers Care Purse Seining Hand Name Role Phone Dionicio ANTON, Lucy Yanez Primary Care Physician [phone] Encounter [facility] Date(s): 04/18/22 - 05/18/22 [facility] Riccardo Ordonez Adult [address] [place] [address]- Allergies, Adverse Reactions, Alerts Substance Reaction Severity [...] tablet, Refills 1, Route to Pharmacy Electronically, [id number], 161.5, cm, 08/16/21 14:16:00 EST, Height Start [...] 10:55:00 EDT Start Date: 02/21/20 Status: Ordered [place]-3 oral capsule See Instructions, one daily, 0 [...] Start Date: 02/02/22 Status: Ordered Vitamin D 58953 iu oral capsule 50,000 International_Units, By Mouth, [...] Personnel Name: Lucy Greenberg NP Address: Address: [address] [place] [id number]
--- OUTSIDE RECORDS SUMMARY | 2023-11-15 15:41 | XMS_ITS | Continuity of Care Document ---
Author Organization [facility] José Luis Lalit lt Address [address] [place] [address]- Care Team Providers Care Customer Account Specialist Name Role Phone Dionicio ANTON, Lucy Yanez Primary Care Physician [phone] Encounter [facility] Date(s): 02/02/23 - 03/04/23 [facility] Riccardo Ordonez Adult [address] [place] [address]- Allergies, Adverse Reactions, Alerts Substance Reaction Severity [...] Maintenance, 10/31/22 11:47:00 EDT, [id number], 161, cm, 10/28/22 13:31:00 EDT, Height, 86.9, [...] capsule, 3 Refills, Maintenance, 01/27/23 9:13:00 EDT, [facility], 161, cm, 10/28/22 13:31:00 EDT, Height, 86.9, kg, 10/28/22 13:31:00 EDT, DryWeight Start Date: 01/27/23 Status: Ordered GlipiZIDE XL 10 mg oral tablet, extended release 2 tablet = 20 mg, By Mouth, Daily, # 180 tablet, 1 Refills, Maintenance, 02/16/23 6:50:00 EDT, [facility], Partial fill upon patient request if the prescription is for a schedule II opioid drug., 161, cm, 02/07/23 11:15:00 EDT,... Start Date: 02/16/23 Status: Ordered hydrochlorothiazide-triamterene 25 mg-37.5 mg oral capsule 1 capsule, By Mouth, Daily, # 90 capsule, 1 Refills, Maintenance, 09/08/22 10:28:00 EST, [facility], 0, 1 capsule By Mouth Daily, 161, cm, 08/30/22 14:54:00 EST, Height, 88.9, kg, 08/30/22 14:54:00 EST, Dry Weight Start Date: 09/08/22 Status: Ordered loratadine 10 mg oral tablet 1, tablet, By Mouth, Daily, # 90 tablet, Refills 1, Route to Pharmacy Electronically, [id number], 161.5, cm, 08/16/21 14:16:00 EST, Height Start Date: 09/03/21 Status: Ordered losartan 50 mg oral tablet 1 tablet, By Mouth, Daily, for 7 days, # 7 tablet, 0 Refills, Physician Stop 03/06/23 11:33:00 EDT,02/27/23 11:33:00 EDT, [facility]/pharmacy #[id number], 161, cm, [...] 10:55:00 EDT Start Date: 02/21/20 Status: Ordered [place]-3 oral capsule See Instructions, one daily, 0 [...] tablet, 1 Refills, Maintenance, 09/08/22 10:29:00 EST, [facility], 161, cm, 08/30/22 14:54:00 EST, Height, 88.9, kg, 08/30/22 14:54:00 EST, Dry Weight Start Date: 09/08/22 Status: Ordered Synthroid 0.05 mg oral tablet 1 tablet, By Mouth, Daily, TAKE 2TABLETS ON MONDAY, # 102 tablet, 1 Refills, Maintenance, 01/27/23 4:55:00 EDT, [facility], 161, cm, 10/28/22 [...] Start Date: 02/02/22 Status: Ordered Vitamin D 24132 iu oral capsule 50,000 International_Units, By Mouth, [...] Professional Member Role: PCP Address: Address: [address] [place] [address]- Care Team Related Persons Name: ALBA TATE Address: [address] [place] [address]
--- OUTSIDE RECORDS SUMMARY | 2023-11-15 15:41 | XMS_ITS | Continuity of Care Document ---
Author Organization [facility] José Luis Lalit lt Address [address] [place] [address]- Care Team Providers Care Network Project Manager Name Role Phone Dionicio ANTON, Lucy Yanez Primary Care Physician Encounter [facility] Date(s): 12/02/22 - 01/01/23 [facility] Riccardo Ordonez Adult [address] [place] [address]- Allergies, Adverse Reactions, Alerts Substance Reaction Severity [...] tablet, 0 Refills, Maintenance, 10/31/22 11:47:00 EDT, [facility] STORE [id number], 161, cm, 10/28/22 13:31:00 EDT, Height, 86.9, [...] capsule, 0 Refills, Maintenance, 12/01/22 16:17:00 EDT, [facility] STORE [id number], 161, cm, 10/28/22 13:31:00 EDT, Height, 86.9, [...] tablet, 0 Refills, Maintenance, 12/01/22 16:17:00 EDT, [facility] STORE [id number], 161, cm, 10/28/22 13:31:00 EDT, Height, 86.9, kg, 10/28/22 13:31:00 EDT, Dry Weight Start Date: 12/01/22 Status: Ordered loratadine 10 mg oral tablet 1, tablet, By Mouth, Daily, # 90 tablet, Refills 1, Route to Pharmacy Electronically, [facility] STORE [id number], 161.5, cm, 08/16/21 14:16:00 EST, Height Start [...] 10:55:00 EDT Start Date: 02/21/20 Status: Ordered [place]-3 oral capsule See Instructions, one daily, 0 [...] Start Date: 02/02/22 Status: Ordered Vitamin D 33338 iu oral capsule 50,000 International_Units, By Mouth, [...] Associate Professional Member Role: PCP Address: Address: [address] [place] [id number]- Care Team Related Persons Name: ALBA TATE Address: home [address] [place] [address]
== END 2023-11-15 16:34 | disposition home or self-care (01) ==
PROVIDERS: PCP Internal Medicine; Visit Provider Nurse Practitioner Family
DX: M79.641 Pain in right hand (principal)
CPT/HCPCS: 99213

== ENCOUNTER 2023-11-16 09:25 | Outpatient (REF) | payer MEDICARE, SELFPAY ==
--- NOTE | ~2023-11-16 | XR_ITS ---
EXAMINATION: XR HAND, RIGHT CLINICAL INFORMATION: Right hand pain and swelling after fall. COMPARISON: None available. TECHNIQUE: PA, lateral, and oblique views of the right hand. FINDINGS: Diffuse osteopenia. Displaced impacted fracture of the fifth metacarpal at the head neck junction. There is apex dorsal angulation at the fracture site. No intra-articular extension. Associated soft tissue swelling. Joint space narrowing of the triscaphe joint and first CMC joint. XR/XR hand RT min 3V IMPRESSION: Displaced impacted fracture of the fifth metacarpal at the head neck junction.
== END 2023-11-16 09:26 | disposition home or self-care (01) ==
LOC: HO.HMGCX 09:25
PROVIDERS: PCP Internal Medicine; Visit Provider Nurse Practitioner Family
DX: M79.641 Pain in right hand (principal)
CPT/HCPCS: 73130

== ENCOUNTER → 2023-11-16 10:22 | Outpatient (BNV) | payer MEDICARE, SELFPAY | PROVIDERS: PCP Internal Medicine; Visit Provider Nurse Practitioner Family | DX: R39.9 Unspecified symptoms and signs involving the genitourinary system (principal) | CPT/HCPCS: 81003 ==

== ENCOUNTER 2023-12-14 11:46 | Outpatient (REF) | payer MEDICARE, SELFPAY | END 2023-12-14 11:47 | disposition home or self-care (01) | LOC: HO.HOSX 11:46 | PROVIDERS: Visit Provider Physician Assistant | DX: Z13.89 Encounter for screening for other disorder (principal) ==

== ENCOUNTER 2023-12-15 10:15 | Outpatient (AMB) | payer MEDICARE, SELFPAY ==
--- NOTE | 2023-12-15 10:35 | MHC.OFFVIS ---
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 DOI November 14 Intake Note: Randee an 83 year old female who presents today as a new patient for an evaluation of right hand. Patient reports having a fall when she was getting out of bed. She presented to [facility] walk in clinic about week later due to ongoing pain. Currently she has a visible lump on the dorsal aspect of hand. States her pain comes with applying pressure. She was seen at [facility] walk in clinic where xrays were done and referral to orthopedics. Allergies N.K.D.A. 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 DOI November 14: Details: 83-year-old female who presents to the office today for evaluation of right-hand injury after a fall while getting out of her bed, 11/15/23. She was seen at walk-in clinic about a week later due to her ongoing pain. She was seen at urgent care for her hip. She currently states she has pain with applying pressure to her hand. She also has a visible lump on the dorsal aspect of her hand. 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 History of pulmonary embolism Hypercholesterolemia Hypertension Surgical History History of left total mastectomy Family History Brother History of stomach cancer History of liver cancer Social History Patient Tobacco Use Status: Never used Tobacco Advance Directives Date on File: 10/22/20 Review of Systems Const All systems reviewed & are unremarkable except as noted in HPI and below Physical Exam Const General: cooperative, healthy appearing, comfortable, no acute distress, well developed and alert Orientation/consciousness: patient oriented x3 HEENT Head: Yes normal to inspection, Yes normocephalic and Yes atraumatic Eyes General: appearance normal, both eyes and all related structures Resp Effort & Inspection: normal respiratory effort and able to speak in complete sentences Cardio Rate: regular rate Peripheral pulses: Peripheral pulses 2+ throughout GI Palpation (GI): Soft to palpation Skin Lesions: no lesions Rashes: no rashes Neuro General: patient oriented x3 Extrem Other: Right hand: Normal to inspection. There is some tenderness over the neck of the 5th metacarpal. There is no scissoring or angulation of the small finger. She can fully extend and bring his hand to a closed fist. Office Procedures Fracture Care Fracture Billing Code: Fracture Billing Code Results Reviewed Results Reviewed: Xrays were obtained in the office today and personally reviewed by me of the right hand Displaced impacted fracture of the fifth metacarpal at the head neck junction. Assessment & Plan Assessment & Plan (1) Right hand fracture: Code(s): S62.91XA - Unspecified fracture of right wrist and hand, initial encounter for closed fracture Category: Medical Plan She was given a Velcro wrist splint which she will wear with activities, using the walker and when she is out of the house. She can remove the splint for hygiene and daily activities which do not require any heavy lifting. I would like to see her back in 4 weeks with new x-rays, sooner if needed. Orders: Orders XR hand RT min 3V 12/15/23 M79.641 - Pain in right hand Patient Instructions: Scribed for Tanna Teran PA-C, by [facility] director, on 12/15/2023 at 10:45 AM EST.? I, Tanna Teran PA-C, have personally reviewed and agree with the information entered by the scribe. Coding Level of Care Code New Pt Level 3 (10422) Diagnoses Right hand fracture S62.91XA CPT Codes Fracture Care - Fracture Billing Code: Fracture Billing Code ([id number])
== END 2023-12-15 12:36 | disposition home or self-care (01) ==
PROVIDERS: PCP Internal Medicine; Visit Provider Physician Assistant
DX: S62.91XA Unspecified fracture of right hand, initial encounter for closed fracture (principal); S62.306A Unspecified fracture of fifth metacarpal bone, right hand, initial encounter for closed fracture
CPT/HCPCS: 99203

== ENCOUNTER 2023-12-15 21:46 | Outpatient (REF) | payer MEDICARE, SELFPAY ==
--- NOTE | ~2023-12-15 | XR_ITS ---
EXAMINATION: XR HAND, RIGHT CLINICAL INFORMATION: Pain in right hand, small finger, fifth digit. COMPARISON: 11/16/2023. TECHNIQUE: PA, lateral, and oblique views of the right hand. FINDINGS: The bones are diffusely demineralized. Redemonstration of displaced, impacted, comminuted fracture of the fifth metacarpal at the head/neck junction. Associated soft tissue swelling. There has been some interval callus formation. Joint space narrowing at the triscaphe and first carpometacarpal joints. XR/XR hand RT min 3V IMPRESSION: Redemonstration of displaced, impacted, comminuted fracture of the fifth metacarpal at the head/neck junction. Associated soft tissue swelling. There has been some interval callus formation.
== END 2023-12-15 21:47 | disposition home or self-care (01) ==
LOC: HO.HOSX 21:46
PROVIDERS: Visit Provider Physician Assistant
DX: S62.91XA Unspecified fracture of right hand, initial encounter for closed fracture (principal)
CPT/HCPCS: 73130; 99202

== ENCOUNTER 2023-12-21 10:01 | Outpatient (REF) | payer MEDICARE, SELFPAY ==
--- NOTE | ~2023-12-21 | US_ITS ---
EXAMINATION: US VENOUS ULTRASOUND WITH DOPPLER LOWER EXTREMITY, BILATERAL CLINICAL INFORMATION: Bilateral lower extremity edema COMPARISON: DVT study 06/28/2016 TECHNIQUE: Ultrasound of the deep veins is performed from the hip to the calf with compression sonography and color and pulse Doppler assessment. Spectral analysis with color-flow imaging is performed. FINDINGS: RIGHT: There is normal venous compression and respiratory variation and augmented flow. The visualized common femoral vein, superficial femoral vein, profunda femoral vein, popliteal vein, and the trifurcation region shows no evidence of deep venous thrombosis. There is no significant popliteal fossa cyst. Ankle edema is noted. LEFT: There is normal venous compression and respiratory variation and augmented flow. The visualized common femoral vein, superficial femoral vein, profunda femoral vein, popliteal vein, and the trifurcation region shows no evidence of deep venous thrombosis. There is no significant popliteal fossa cyst. Ankle edema is noted. If the patient's symptoms persist, followup ultrasound in 5 days 7 days might be of value to exclude proximal propagation from a non-visualized calf vein. US/US venous duplex LE BI IMPRESSION: No DVT demonstrated in either lower extremity.
== END 2023-12-21 10:02 | disposition home or self-care (01) ==
LOC: HO.US 10:01
PROVIDERS: PCP Internal Medicine; Visit Provider Internal Medicine
DX: R60.0 Localized edema (principal)
CPT/HCPCS: 93970

== ENCOUNTER 2024-02-14 13:05 | Outpatient (REF) | payer MEDICARE, SELFPAY | END 2024-02-14 13:06 | disposition home or self-care (01) | LOC: HO.HOSX 13:05 | PROVIDERS: Visit Provider Physician Assistant | DX: Z13.89 Encounter for screening for other disorder (principal) ==

== ENCOUNTER 2025-01-03 10:32 | Outpatient (REF) | payer MEDICARE, SELFPAY ==
--- OUTSIDE RECORDS SUMMARY | 2024-07-29 13:00 | XMS_ITS ---
Author Organization Woody Joseph MD Address [address] [place], [place] [id number] Care Team Providers Care Education Paraprofessional Name Role Phone Woody Joseph Primary Care Provider [phone] Allergies No Known Allergies REASON FOR VISIT COMP EXAM Social History Tobacco Use: Social History Observation Description Date Details (start date - stop date) Never Smoker NA - NA Tobacco Use/Smoking Question Answer Notes Patient is a nonsmoker Additional Findings: Tobacco Non-User Cu rrent non-smoker, currently using no form of tobacco Alcohol Screen Question Answer Notes Did you have a drink containing alcohol in the p ast year? No Points 0 Interpretation Negative Encounters Encounter Location Date Provider Diagnosis Woody Joseph MD [address] [place], [place] [id number] 07/29/2024 Woody Joseph Plan Of Treatment Next Appt Details Provider Name:Woody Knapp ier, 01/10/2025 11:00:00 AM, [address], [address], [place], [id number], Progress Notes * Randee JOSEDOB:[birth year] (84 yo F)Acc No.[id number]:07/29/2024 Patient: Randee ACEVEDO Provider: Usman Joseph MD :1940 A ge:83 Y S ex:Female Date:07/29/2024 Address:[address] [place] [address], [id number] Subjective: * Chief Complaints: * 1 . COMP EXAM. * HPI: D epression Screening: PHQ-9 L ittle interest or pleasure in doing things N ot at all, F eeling down, depressed, or hopeless N ot at all, T rouble falling or staying asleep, or sleeping too much N ot at all, F eeling tired or having little energy N ot at all, P oor appetite or overeating N ot at all, F eeling bad about yourself or that you are a failure, or have let yourself or your family down N ot at all, T rouble concentrating on things, such as reading the newspaper or watching television N ot at all, M oving or speaking so slowly that other people could have noticed; or the opposite, being so fidgety or restless that you have been moving around a lot more than usual N ot at all, T houghts that you would be better off or of hurting yourself in some way N ot at all, T otal Score 0 . C ommunication Needs: Communication Needs D oes the patient have a hearing impairment N o, D oes the patient have a vision impairment? Y es, I f yes, what is the vision impairment? G lasses, D oes the patient have a cognition impairment? N o. F all Risk: History H ave you had any falls with injury in the past year? N o, H ave you had two or more falls in the past year? N o. S MELODIE Questions: SDOH Questions I n the past year have you been worried about losing housing? N o, I n the past year have you or any family members you live with been unable to get any of the following when it was really needed? Check all that apply: N one. * Medical History: - REFUSES COLONOSCOPY - DON'T ASK AGAIN. * Family History: F ather: 97 yrs, dementia. M other: 70 yrs, coronary artery disease.?2 brother(s) . . One brother at age 50 - liver cancer. * Social History: T obacco Use: T obacco Use/Smoking P atient is a n onsmoker, A dditional Findings: Tobacco Non-User C urrent non-smoker, currently using no form of tobacco. D rugs/Alcohol: A lcohol Screen D id you have a drink containing alcohol in the past year? N o, P oints 0 , I nterpretation N egative. M iscellaneous: C affeine: no. Children: no. Community involvements: no. Exercise: yes, walks up and down the stairs QID. Housing: owning. Living with: alone. Marital status: single. Occupation: Retired. Pets: none. Travel outside of the [place]: no. * Allergies: N .K.D.A. Objective: * Vitals: Assessment: Plan: * Treatment: * * The named appointment provid er may or may not be the originator of this progress note, and it is not deemed complete until electronically signed by the appointment provider. Sign off status: Pending * Provider: Usman Joseph MD Date: 0 07/29/2024 Generated for Devonte patterson/Dimitri/Maria Citting on: 0 01/03/2025 10:57 AM EDT History and Physical Notes * HPI (History of Present Illness) Category Sub-Category Detail Notes Category Not es Depression Screening PHQ-9 Little inte rest or pleasure in doing things: Not at all Feeling down, depressed, or hopeless: No t at all Trouble falling or staying asleep, or sl eeping too much: Not at all Feeling tired or having little energy: N ot at all Poor appetite or overeating: Not at all Feeling bad about yourself o r that you are a failure, or have let yourself or your family down: Not at all Trouble concentrating on thi ngs, such as reading the newspaper or watching television: Not at all Moving or speaking so slowly that other people could have noticed; or the opposite, being so fidgety or restless that you have been moving around a lot more than usual: Not at all Thoughts that you would be b jake off or of hurting yourself in some way: Not at all Total Score: 0 SDOH Questions SDOH Questions In the past year have you been worried about losing housing?: No In the past year have you or any family members you live with been unable to get any of the following when it was really needed? Check all that apply:: None Fall Risk History Have you had any falls with injury i n the past year?: No Have you had two or more falls in the st year?: No Communication Needs Communication Needs Does the patient have a hearing impairment: No Does the patient have a vision impairmen t?: Yes If yes, what is the vision impairment?: Glasses Does the patient have a cognition impair ment?: No
[2025-01-03 10:36] LABS: MANUAL DIFF FLAG NO
[2025-01-03 10:55] LABS: Basophils Percent Auto 0.7 % (0-2); Eosinophils Absolute Auto 0.1 X10*3/uL (0.0-0.4); Eosinophils Percent Auto 2.2 % (0-4); Hematocrit 41.1 % (37.0-47.0); Hemoglobin 13.4 g/dl (12.0-16.0); Imm Gran Abs Auto 0.01 X10*3/uL (0.00-0.03); Imm Gran Pct Auto 0.2 % (0.0-0.4); Lymphocytes Percent Auto 37.1 % (20-40); Mean Corpuscular HGB Conc 32.6 g/dl (31.0-35.0); Mean Corpuscular Hemoglobin 30.8 pg (27.0-33.0); Mean Corpuscular Volume 94.5 fL (80.0-98.0); Monocytes Absolute Auto 0.5 X10*3/uL (0.1-1.2); Monocytes Percent Auto 8.8 % (2-11); Neutrophils Absolute Auto 2.7 x10*3/uL (2.0-8.3); Platelet Count 248 X10*3/uL (160-400); Red Blood Count 4.35 X10*6/uL (4.20-5.50); Red Cell Distribution Width 13.4 % (11.0-16.0); White Blood Count 5.3 X10*3/uL (4.8-10.8)
[2025-01-03 11:29] LABS: Alanine Aminotransferase 11 U/L (0-31); Albumin Level 4.1 g/dL (3.5-5.0); Alkaline Phosphatase 77 U/L (39-117); Anion Gap 10 (12-20); Aspartate Amino Transferase 21 U/L (5-31); Bilirubin Total 0.9 mg/dL (0.0-1.0); Blood Urea Nitrogen 13 mg/dL (9-16); Calcium 9.3 mg/dL (8.4-10.2); Carbon Dioxide 26 mmol/L (22-29); Chloride 109 mmol/L (96-108); Cholesterol 255 mg/dL (<200); Estimated Glomerular Filt Rate 55; Glucose Fasting 79 mg/dL (60-99); HDL Cholesterol 61 mg/dL (>40); LDL Cholesterol Calculated 173 mg/dL (<100); Potassium 3.8 mmol/L (3.3-5.1); Sodium 141 mmol/L (135-145); Total Protein 6.9 g/dL (6.5-8.0); Triglycerides 108 mg/dL (<150)
[2025-01-03 11:42] LABS: Vitamin D 25-OH Total 32.5 ng/mL (>30)
== END 2025-01-03 10:33 | disposition home or self-care (01) ==
LOC: HO.LNP 10:32
PROVIDERS: Visit Provider Internal Medicine
DX: I10 Essential (primary) hypertension (principal); E78.00 Pure hypercholesterolemia, unspecified; E55.9 Vitamin D deficiency, unspecified
CPT/HCPCS: 80053; 80061; 82306; 85025

== ENCOUNTER 2025-01-10 13:08 | Outpatient (REF) | payer MEDICARE, SELFPAY ==
--- OUTSIDE RECORDS SUMMARY | 2024-07-29 13:00 | XMS_ITS ---
Author Organization Woody Joseph MD Address [address] [place], [place] [id number] Care Team Providers Care Electrical Engineering Professor Name Role Phone Woody Joseph Primary Care Provider Allergies No Known Allergies REASON FOR VISIT [...] MD [address] [place], [place] [phone] 07/29/2024 Woody Joseph Plan Of Treatment Next Appt Details Provider Name:Woody Knapp ier, 01/06/2026 07:15:00 AM, [address], [address], [place], [place], [id number], Provider Name:Woody Knapp ier, 01/13/2026 01:30:00 PM, [address], [address], [place], [id number], Progress Notes * Randee JOSEDOB:[birth year] (84 yo F)Acc No.[id number]:07/29/2024 Patient: Randee ACEVEDO Provider: Usman Joseph MD :1940 A ge:83 Y S ex:Female Date:07/29/2024 Address:[address] [place], [place] [phone] Subjective: * Chief Complaints: * 1 . [...] T obacco Use: T obacco Use/Smoking P atleticia is a n onsmoker, A dditional Findings: [...] MD Date: 0 07/29/2024 Generated for Devonte patterson/Dimitri/De on: 0 01/10/2025 01:41 PM EDT History and Physical Notes * HPI [...] had two or more falls in the year?: No Communication Needs Communication Needs Does the patient have a hearing impairment: No Does the patient have a vision impairmen t?: Yes If yes, what is the vision impairment?: Glasses Does the patient have a cognition impair ment?: No
[2025-01-10 13:16] LABS: Appearance Urine Cloudy; Color Urine Yellow; Glucose Urine UA Negative (Negative); Leukocyte Esterase Urine Large (3+) (Negative); Nitrite Urine Positive (Negative); PH 7.5 (5.0-9.0); Specific Gravity - Urine 1.015 (1.005-1.025); UMIC TRIGGER UACC YES; Urine Blood Trace (Negative); Urine Ketones Negative (Negative); Urine Protein Negative (Neg-Trace)
[2025-01-10 13:19] LABS: Bacteria Urine 4+ (None Seen); Hyaline Casts Urine 0-2 /LPF (0-2); RBC Urine 0-2 /HPF (0-2); Squamous Epithelial Cell Urine 0-2 /HPF (0-2); UACC Culture Trigger YES; WBC Urine 21-50 /HPF (0-5)
== END 2025-01-10 13:09 | disposition home or self-care (01) ==
LOC: HO.LNP 13:08
PROVIDERS: Visit Provider Internal Medicine
DX: I10 Essential (primary) hypertension (principal); E78.00 Pure hypercholesterolemia, unspecified; R82.79 Other abnormal findings on microbiological examination of urine
CPT/HCPCS: 81001; 87086; 87088; 87186